=== PATIENT | male | born 1940 | race Caucasian/White ===

== ENCOUNTER → 2016-12-15 | Outpatient (CLI) | payer BC ==
[~2016-12-15] MED LIST: ADVIN10/60 INH; ALBUAER2 INH; ASPEC325 PO; ATEN-173 PO; GLUCOSAMINE PO; LEVO-366 PO; MULT-506 PO; SIMV40TA2 PO; VERA180T15 PO
[2016-12-15 17:46] LABS: COMPLETE YES; EOS % 2.4 %; IG% 1.1 %; LYMPH % 35.8 %; LYMPH ABS # 1.32 K/uL (1.2-3.4); MEAN CELL VOLUME 93.8 fL (80-100); MEAN CORPUSCULAR HEMOGLOBIN 31.1 pg (25-34); MEAN CORPUSCULAR HGB CONC 33.1 g/dl (32-36); MEAN PLATELET VOLUME 10.7 fL (7.4-10.4); MONO % 17.3 %; NEUT % 43.4 %; PLATELET COUNT 144 K/uL (130-400); RED BLOOD COUNT 3.73 M/uL (4.7-6.1); WHITE BLOOD COUNT 3.69 K/uL (4.8-10.8)
[2016-12-15 18:00] LABS: ALB/GLOB RATIO 0.9 (0.9-2); ALT/SGPT 23 U/L (12-78); AST/SGOT 16 U/L (15-37); BLOOD UREA NITROGEN 25 mg/dl (7-18); BUN/CREATININE RATIO 16.7 (10-20); CALCIUM 8.9 mg/dl (8.5-10.1); CARBON DIOXIDE 27 mmol/L (21-32); CHLORIDE 105 mmol/L (98-107); CHOLESTEROL 108 mg/dl (0-200); CHOLESTEROL/HDL RATIO 2.6; GLUCOSE 102 mg/dl (70-99); HDL CHOLESTEROL 41 mg/dl; LDL CHOLESTEROL CALCULATED 42 mg/dl; POTASSIUM 4.5 mmol/L (3.5-5.1); SODIUM 141 mmol/L (136-145); TRIGLYCERIDES 126 mg/dl (0-150); VERY LOW DENSITY LIPOPROT CALC 25 mg/dl
[2016-12-15 18:02] LABS: ALKALINE PHOSPHATASE 84 U/L (45-117)
[2016-12-16 06:29] LABS: ESTIMATED AVERAGE GLUCOSE 128 mg/dl; HA1C FLAG Normal (Normal)
== END | disposition home or self-care (01) ==
LOC: C.LABBFT 14:21
PROVIDERS: ATTEND Internal Medicine
DX: R73.01 Impaired fasting glucose (principal); D64.9 Anemia, unspecified; E78.5 Hyperlipidemia, unspecified

== ENCOUNTER → 2017-02-23 | Outpatient (CLI) | payer BC ==
--- NOTE | 2017-02-23 07:15 | DIAGNOSTIC IMAGING REPORT ---
CHEST CT WITHOUT CONTRAST CT DOSE: 660.45 mGy.cm HISTORY: Lung nodule R91.1 Pulmonary nodule TECHNIQUE: Multiaxial CT images of the chest were performed without contrast. COMPARISON: 05/26/2016 FINDINGS: No change overall compared to the prior study. The current study shows no significant mediastinal or hilar adenopathy. Diffuse emphysematous change bilaterally combined with diffuse pleural thickening, parenchymal scarring, and bleb changes bilaterally appear similar. There is no new or interval finding. Calcified pleural plaques throughout both hemithoraces is stable. Postoperative changes of the right shoulder stable. IMPRESSION: 1. No change from the prior exam. 2. Extensive emphysematous and calcific pleural plaque formation throughout both hemithoraces are similar. 3. Emphysematous bleb formation, pleural thickening, and parenchymal densities appear stable. No interval change. Electronically signed by: Luis Angel Woods M.D. 02/23/2017 7:13 AM Dictated Date/Time: 02/23/2017 6:55 AM
== END | disposition home or self-care (01) ==
LOC: C.CTS 06:30
PROVIDERS: ATTEND Internal Medicine Pulmonary Disease
DX: R91.1 Solitary pulmonary nodule (principal)

== ENCOUNTER → 2017-06-22 | Outpatient (CLI) | payer BC ==
[2017-06-22 12:34] LABS: ESTIMATED AVERAGE GLUCOSE 126 mg/dl; HA1C FLAG Normal (Normal)
[2017-06-22 12:36] LABS: COMPLETE YES; EOS % 0.6 %; IG% 0.6 %; LYMPH % 30.9 %; LYMPH ABS # 1.06 K/uL (1.2-3.4); MEAN CORPUSCULAR HEMOGLOBIN 31.5 pg (25-34); MEAN CORPUSCULAR HGB CONC 33.2 g/dl (32-36); MEAN PLATELET VOLUME 11.7 fL (7.4-10.4); MONO % 17.5 %; NEUT % 50.4 %; PLATELET COUNT 119 K/uL (130-400); WHITE BLOOD COUNT 3.43 K/uL (4.8-10.8)
[2017-06-22 12:42] LABS: ALT/SGPT 20 U/L (12-78); AST/SGOT 14 U/L (15-37); BLOOD UREA NITROGEN 23 mg/dl (7-18); BUN/CREATININE RATIO 17.5 (10-20); CALCIUM 8.8 mg/dl (8.5-10.1); CARBON DIOXIDE 29 mmol/L (21-32); CHLORIDE 105 mmol/L (98-107); CHOLESTEROL 107 mg/dl (0-200); GLUCOSE 99 mg/dl (70-99); POTASSIUM 4.2 mmol/L (3.5-5.1); SODIUM 139 mmol/L (136-145)
[2017-06-22 12:52] LABS: ALB/GLOB RATIO 0.8 (0.9-2); ALKALINE PHOSPHATASE 87 U/L (45-117); CHOLESTEROL/HDL RATIO 2.1; HDL CHOLESTEROL 50 mg/dl; LDL CHOLESTEROL CALCULATED 45 mg/dl; TRIGLYCERIDES 61 mg/dl (0-150); VERY LOW DENSITY LIPOPROT CALC 12 mg/dl
== END | disposition home or self-care (01) ==
LOC: C.LABBFT 11:10
PROVIDERS: ATTEND Internal Medicine
DX: E78.5 Hyperlipidemia, unspecified (principal); R73.01 Impaired fasting glucose; D64.9 Anemia, unspecified

== ENCOUNTER 2017-12-24 16:30 | Emergency (ER) | payer BC ==
[~2017-12-24] VITALS: Ht 170.2 cm; Wt 90.0 kg
[2017-12-24 16:33] VITALS: TEMP 36.5; Ht 170.2 cm; Wt 90.0 kg
[2017-12-24] MEDS ORDERED: ASPI81TA28 PO (16:52)
[2017-12-24] MEDS ORDERED: OMEG10007 PO (16:52)
[2017-12-24] MEDS ORDERED: SODIUM CHLORIDE 0.9% 1000ML 1,000 ML IV STA (17:32)
[2017-12-24 18:01] LABS: ALT/SGPT 80 U/L (12-78); BLOOD UREA NITROGEN 46 mg/dl (7-18); CALCIUM 8.8 mg/dl (8.5-10.1); CARBON DIOXIDE 25 mmol/L (21-32); CREATININE 1.97 mg/dl (0.60-1.40); GLUCOSE 126 mg/dl (70-99); LIPASE 169 U/L (73-393); POTASSIUM 3.7 mmol/L (3.5-5.1); SODIUM 135 mmol/L (136-145)
[2017-12-24 18:05] LABS: ALKALINE PHOSPHATASE 80 U/L (45-117); AST/SGOT 74 U/L (15-37); TOTAL PROTEIN 7.9 gm/dl (6.4-8.2)
[2017-12-24 18:10] LABS: HEMATOCRIT 36.3 % (42-52); HEMOGLOBIN 12.6 g/dL (14.0-18.0); MEAN CELL VOLUME 93.6 fL (80-100); MEAN CORPUSCULAR HEMOGLOBIN 32.5 pg (25-34); MEAN CORPUSCULAR HGB CONC 34.7 g/dl (32-36); MEAN PLATELET VOLUME 11.9 fL (7.4-10.4); RED CELL DISTRIBUTION WIDTH CV 14.7 % (11.5-14.5); RED CELL DISTRIBUTION WIDTH SD 49.9 fL (36.4-46.3); WHITE BLOOD COUNT 8.96 K/uL (4.8-10.8)
[2017-12-24 18:16] LABS: PLATELET COUNT 77 K/uL (130-400)
[2017-12-24 18:18] LABS: BASO % 0.2 %; BASO ABS # 0.02 K/uL (0-0.2); IG# 0.11 K/uL (0.00-0.02); LYMPH % 8.6 %; LYMPH ABS # 0.77 K/uL (1.2-3.4); MONO % 10.3 %; MONO ABS # 0.92 K/uL (0.11-0.59); NEUT % 79.7 %; NEUT ABS # 7.14 K/uL (1.4-6.5)
--- NOTE | 2017-12-24 18:21 | DIAGNOSTIC IMAGING REPORT ---
CT SCAN OF THE ABDOMEN AND PELVIS WITHOUT CONTRAST CLINICAL HISTORY: Generalized abdominal pain COMPARISON STUDY: No previous studies for comparison. TECHNIQUE: CT scan of the abdomen and pelvis was performed from the lung bases to the proximal femurs. Images are reviewed in the axial, sagittal, and coronal planes. IV contrast was not administered for this examination. A dose lowering technique was utilized adhering to the principles of ALARA. CT DOSE: 724.85 mGy.cm FINDINGS: Lower chest: The heart is enlarged. There is right lower lobe bronchiectatic change. There is pleural thickening and bilateral pleural calcifications. There are multiple peripheral bleb/bulla. Liver: The unenhanced liver is normal in size, contour, and attenuation. There is no intrahepatic biliary ductal dilatation. Gallbladder: Unremarkable. Spleen: Normal in size and attenuation. Pancreas: There is mild edema adjacent the the anterior lateral aspect of the pancreatic head. Adrenal glands: Unremarkable. Kidneys: There is a 3 mm nonobstructing lower pole right renal calculus. There is a 17 mm lower pole right renal cyst. No ureteral or bladder calculi are visualized. Bowel: There are no transition zones indicate bowel obstruction. The appendix appears normal. There is colonic diverticulosis. There is no evidence of acute diverticulitis. There is mild wall thickening of the gastric antrum and duodenal bulb with subtle infiltration of the adjacent fat. The findings are suggestive of a gastric antritis/duodenitis. Pancreatitis with secondary inflammatory changes is within differential but felt to be statistically less likely. Peritoneum: There is no intraperitoneal free air or abdominal ascites. There is small fat-containing hernias Vasculature: The abdominal aorta is normal in course and caliber. Adenopathy: None. Pelvic viscera: The bladder, and pelvic viscera are unremarkable. Skeletal structures: No destructive osseous lesions are seen. IMPRESSION: 1. No evidence of bowel obstruction. No evidence of free air 2. Normal appendix 3. Diverticulosis. No evidence of acute diverticulitis 4. Nonobstructing 3 mm right renal calculus 5. Mild wall thickening involving the gastric antrum and duodenal bulb with subtle infiltration of the adjacent fat. The findings are suggestive a gastric antritis/duodenitis. Pancreatitis with secondary inflammatory changes is within differential but felt to be statistically less likely Electronically signed by: Luis Carbone M.D. 12/24/2017 6:20 PM Dictated Date/Time: 12/24/2017 6:13 PM
--- NOTE | 2017-12-24 18:28 | DIAGNOSTIC IMAGING REPORT ---
CHEST ONE VIEW PORTABLE CLINICAL HISTORY: cough COMPARISON STUDY: Chest CT dated 02/23/2017, chest x-ray dated 10/14/2008 FINDINGS: The heart is enlarged. There are extensive bilateral calcified pleural plaques. This makes evaluation the lung parenchyma difficult. There is blunting of the lateral costophrenic angles. There is no definite acute parenchymal consolidation. There is underlying pulmonary emphysema.[ IMPRESSION: Cardiomegaly, pulmonary emphysema, and extensive bilateral calcified pleural plaques. The pleural disease makes evaluation of the lung parenchyma difficult. There is no definite acute parenchymal consolidation. Electronically signed by: Luis Carbone M.D. 12/24/2017 6:27 PM Dictated Date/Time: 12/24/2017 6:24 PM
[2017-12-24 19:07] LABS: INFLUENZA B ANTIGEN Neg for Influ B (NEG)
[2017-12-24] MEDS ORDERED: SODIUM CHLORIDE 0.9% 500ML 500 ML IV STA (20:19)
[2017-12-24 22:11] VITALS: BP 132/55; PULSE 50; O2SAT 97
--- NOTE | 2017-12-25 00:10 | EMERGENCY ROOM VISIT NOTE ---
History Report prepared by Yana: Abigail Mensah Under the Supervision of: Dr. Otoniel Angeles D.O. First contact with patient: 16:55 Chief Complaint: FLU LIKE SX Stated Complaint: FLU- PHYSICIAN REFERRED History of Present Illness The patient is a 77 year old male who presents to the Emergency Room with complaints of constant generalized illness beginning a week ago. The patient's symptoms started with a nonproductive cough. He reports a headache, fever, weakness, abdominal pain, vomiting, and decreased appetite. The patient was diagnosed with the flu on Thursday, three days ago, and was started on Tamiflu. He states his fever, vomiting, and sorethroat have resolved. Presently, his main complaint is abdominal pain and decreased appetite. He describes his abdominal pain as "bloating". The patient wears 4 L of oxygen at baseline. He has not had to increase his oxygen since being sick. He denies any history of abdominal surgeries. He denies any open wounds or sores. The patient was referred to come to the ED by his PCP. The patient has a history of COPD and asbestos. Pt denies change in vision, chest pain, shortness of breath, nausea, diarrhea, pain with urination, and melena. Source of History: patient Onset: a week ago Position: other (generalized) Quality: other (illness) Timing: constant Associated Symptoms: + fevers, + headache, + sorethroat, + cough, + vomiting , + abdominal pain, No nausea, No diarrhea Review of Systems See HPI for pertinent positives & negatives. A total of 10 systems reviewed and were otherwise negative. Past Medical & Surgical Medical Problems: (1) COPD (chronic obstructive pulmonary disease) Social History Marital Status: Housing Status: lives with significant other Current/Historical Medications Scheduled Albuterol (Ventolin), PUFFS INH UD Aspirin (Aspirin Ec), 81 MG PO QAM Atenolol (Tenormin), 25 MG PO BID Fish Oil ([place]-3), 1 CAP PO QAM Fluticasone Prop/Salmeterol (Advair Diskus 100/50 Mcg *), 1 PUFF INH BID Simvastatin (Zocor), 40 MG PO QPM Verapamil Sust Rel (Calan Sr Ext Rel), 180 MG PO DAILY Allergies Coded Allergies: Diltiazem (Verified Allergy, Intermediate, HIVES, 12/24/17) Telmisartan (Verified Allergy, Unknown, 12/24/17) Physical Exam Vital Signs Date Time Temp Pulse Resp B/P (MAP) Pulse Ox O2 Delivery O2 Flow Rate FiO2 12/24/17 22:11 50 132/55 97 12/24/17 18:56 69 131/63 90 Nasal Cannula 4.0 12/24/17 16:57 65 116/56 98 Nasal Cannula 4.0 12/24/17 16:33 36.5 73 20 113/62 88 Nasal Cannula 4.0 Physical Exam GENERAL: Sitting up in bed, alert, well appearing, on nasal cannula, talking in full sentences, well nourished, no distress, non-toxic EYE EXAM: normal conjunctiva. PERRL and EOM's grossly intact. OROPHARYNX: no exudate, no erythema, lips, buccal mucosa, and tongue normal and mucous membranes are moist NECK: supple, no nuchal rigidity, no adenopathy, non-tender. No JVD. LUNGS: Coarse breath sounds bilaterally. Normal chest wall mechanics HEART: no murmurs, S1 normal and S2 normal ABDOMEN: abdomen soft, non-tender, normo-active bowel sounds, no masses, no rebound or guarding. BACK: Back is symmetrical on inspection and there is no deformity, no midline tenderness, no CVA tenderness. SKIN: no rashes and no bruising UPPER EXTREMITIES: upper extremities are grossly normal. LOWER EXTREMITIES: No pitting edema. NEURO EXAM: Normal sensorium, cranial nerves II-XII grossly intact, normal speech, no gross weakness of arms, no gross weakness of legs. Gross sensation intact. Medical Decision & Procedures ER Provider Diagnostic Interpretation: Radiology results as stated below per my review and the radiologist's interpretation: CT SCAN OF THE ABDOMEN AND PELVIS WITHOUT CONTRAST FINDINGS: Lower chest: The heart is enlarged. There is right lower lobe bronchiectatic change. There is pleural thickening and bilateral pleural calcifications. There are multiple peripheral bleb/bulla. Liver: The unenhanced liver is normal in size, contour, and attenuation. There is no intrahepatic biliary ductal dilatation. Gallbladder: Unremarkable. Spleen: Normal in size and attenuation. Pancreas: There is mild edema adjacent the the anterior lateral aspect of the pancreatic head. Adrenal glands: Unremarkable. Kidneys: There is a 3 mm nonobstructing lower pole right renal calculus. There is a 17 mm lower pole right renal cyst. No ureteral or bladder calculi are visualized. Bowel: There are no transition zones indicate bowel obstruction. The appendix appears normal. There is colonic diverticulosis. There is no evidence of acute diverticulitis. There is mild wall thickening of the gastric antrum and duodenal bulb with subtle infiltration of the adjacent fat. The findings are suggestive of a gastric antritis/duodenitis. Pancreatitis with secondary inflammatory changes is within differential but felt to be statistically less likely. Peritoneum: There is no intraperitoneal free air or abdominal ascites. There is small fat-containing hernias Vasculature: The abdominal aorta is normal in course and caliber. Adenopathy: None. Pelvic viscera: The bladder, and pelvic viscera are unremarkable. Skeletal structures: No destructive osseous lesions are seen. IMPRESSION: 1. No evidence of bowel obstruction. No evidence of free air 2. Normal appendix 3. Diverticulosis. No evidence of acute diverticulitis 4. Nonobstructing 3 mm right renal calculus 5. Mild wall thickening involving the gastric antrum and duodenal bulb with subtle infiltration of the adjacent fat. The findings are suggestive a gastric antritis/duodenitis. Pancreatitis with secondary inflammatory changes is within differential but felt to be statistically less likely Electronically signed by: Luis Carbone M.D. CHEST ONE VIEW PORTABLE FINDINGS: The heart is enlarged. There are extensive bilateral calcified pleural plaques. This makes evaluation the lung parenchyma difficult. There is blunting of the lateral costophrenic angles. There is no definite acute parenchymal consolidation. There is underlying pulmonary emphysema.[ IMPRESSION: Cardiomegaly, pulmonary emphysema, and extensive bilateral calcified pleural plaques. The pleural disease makes evaluation of the lung parenchyma difficult. There is no definite acute parenchymal consolidation. Electronically signed by: Luis Carbone M.D. Laboratory Results 12/24/17 17:30 Red Blood Count 3.88, Mean Corpuscular Volume 93.6, Mean Corpuscular Hemoglobin 32.5, Mean Corpuscular Hemoglobin Concent 34.7, Mean Platelet Volume 11.9, Neutrophils (%) (Auto) 79.7, Lymphocytes (%) (Auto) 8.6, Monocytes (%) (Auto) 10.3, Eosinophils (%) (Auto) 0.0, Basophils (%) (Auto) 0.2, Neutrophils # (Auto ) 7.14, Lymphocytes # (Auto) 0.77, Monocytes # (Auto) 0.92, Eosinophils # (Auto ) 0.00, Basophils # (Auto) 0.02 12/24/17 17:30 Test 12/24/17 17:30 12/24/17 17:48 12/24/17 18:55 White Blood Count 8.96 K/uL (4.8-10.8) Red Blood Count 3.88 M/uL (4.7-6.1) Hemoglobin 12.6 g/dL (14.0-18.0) Hematocrit 36.3 % (42-52) Mean Corpuscular Volume 93.6 fL (80-100) Mean Corpuscular Hemoglobin 32.5 pg (25-34) Mean Corpuscular Hemoglobin Concent 34.7 g/dl (32-36) Platelet Count 77 K/uL (130-400) Mean Platelet Volume 11.9 fL (7.4-10.4) Neutrophils (%) (Auto) 79.7 % Lymphocytes (%) (Auto) 8.6 % Monocytes (%) (Auto) 10.3 % Eosinophils (%) (Auto) 0.0 % Basophils (%) (Auto) 0.2 % Neutrophils # (Auto) 7.14 K/uL (1.4-6.5) Lymphocytes # (Auto) 0.77 K/uL (1.2-3.4) Monocytes # (Auto) 0.92 K/uL (0.11-0.59) Eosinophils # (Auto) 0.00 K/uL (0-0.5) Basophils # (Auto) 0.02 K/uL (0-0.2) RDW Standard Deviation 49.9 fL (36.4-46.3) RDW Coefficient of Variation 14.7 % (11.5-14.5) Immature Granulocyte % (Auto) 1.2 % Immature Granulocyte # (Auto) 0.11 K/uL (0.00-0.02) Dohle Bodies 1+ Platelet Estimate DECREASED Giant Platelets 2+ Anion Gap 7.0 mmol/L (3-11) Est Creatinine Clear Calc Drug Dose 33.1 ml/min Estimated GFR () 36.6 Estimated GFR (Non- 31.6 BUN/Creatinine Ratio 23.4 (10-20) Calcium Level 8.8 mg/dl (8.5-10.1) Total Bilirubin 0.8 mg/dl (0.2-1) Direct Bilirubin 0.4 mg/dl (0-0.2) Aspartate Amino Transf (AST/SGOT) 74 U/L (15-37) Alanine Aminotransferase (ALT/SGPT) 80 U/L (12-78) Alkaline Phosphatase 80 U/L (45-117) Troponin I < 0.015 ng/ml (0-0.045) Total Protein 7.9 gm/dl (6.4-8.2) Albumin 3.0 gm/dl (3.4-5.0) Lipase 169 U/L (73-393) Influenza Type A Antigen POS for Influ A (NEG) Influenza Type B Antigen Neg for Influ B (NEG) Urine Color DK YELLOW Urine Appearance CLOUDY (CLEAR) Urine pH 5.0 (4.5-7.5) Urine Specific [place] 1.025 (1.000-1.030) Urine Protein 2+ (NEG) Urine Glucose (UA) NEG (NEG) Urine Ketones TRACE (NEG) Urine Occult Blood 2+ (NEG) Urine Nitrite NEG (NEG) Urine Bilirubin NEG (NEG) Urine Urobilinogen NEG (NEG) Urine Leukocyte Esterase NEG (NEG) Urine WBC (Auto) 5-10 /hpf (0-5) Urine RBC (Auto) 5-10 /hpf (0-4) Urine Hyaline Casts (Auto) 10-30 /lpf (0-5) Urine Epithelial Cells (Auto) >30 /lpf (0-5) Urine Bacteria (Auto) NEG (NEG) Urine Renal Epithelial Cells /lpf (0-5) Urine Crystals AMORPHOUS SEDIMENT (NONE Urine Pathogenic Casts /lpf (0) Urine Mucus PRESENT (NONE PRSENT) Urine Yeast (Auto) (NONE PRSENT) Laboratory results per my review. Medications Administered Medications (Trade) Dose Ordered Sig/Lisbeth Route Start Time Stop Time Status Last Admin Dose Admin Sodium Chloride 1,000 ml @ 999 mls/hr Q1H1M STAT IV 12/24/17 17:32 12/24/17 18:32 DC 12/24/17 17:32 999 MLS/HR Sodium Chloride 500 ml @ 999 mls/hr Q31M STAT IV 12/24/17 20:19 12/24/17 20:49 DC 12/24/17 20:19 999 MLS/HR ECG Per My Interpretation Indication: weakness Rate (beats per minute): 57 Rhythm: sinus bradycardia Findings: Q waves (Septal), left axis deviation Comparison ECG Date: 08/10/2007 Change: no significant change ED Course ED COURSE: Vital signs were reviewed and showed normal vitals on chronic 4 L The patients medical record was reviewed The above diagnostic studies were performed and reviewed. ED treatments and interventions as stated above. 1725: The patient was evaluated in room A10. A complete history and physical examination was performed. 1732: Ordered Sodium Chloride 1000 ml @ 999 mls/hr IV. 2014: The patient is feeling better and would like to go home. He is agreeable to wait for the urine to come back. 2019: Ordered Sodium Chloride 500 ml @ 999 mls/hr IV. 2141: I updated the patient on his test results. 2155: Upon reevaluation, the patient is resting comfortably.I discussed my findings with the patient and her understands and agrees with the treatment plan. Based on the patients age, coexisting illnesses, exam and lab findings the decision to treat as an outpatient was made. The patient remained stable while under my care. The patient appeared well at the time of discharge. Medical Decision Differential Diagnosis includes but is not limited to dehydration, stroke, anemia, hypoglycemia, hyponatremia, hypernatremia, urinary tract infection, pneumonia, bronchitis, sepsis, gastroenteritis, additional abdominal pathology, metabolic abnormalities and infections. Patient is a 77-year-old male who presents to ER for abdominal pain which was present earlier today. He has not been eating and drinking as he felt nauseous. He was recently diagnosed with influenza and placed on Tamiflu. He has been having coughing and muscle aches. He denies any fevers. He notes that his coughing, muscle aches and sore throat have almost completely resolved. CBC was unremarkable. BMP with a creatinine of 1.9 off of the baseline of 1.5. Patient was given 1.5 L normal saline. LFTs were slightly elevated in the 70s. Troponin was negative. Lipase is normal. UA was contaminated. Influenza A was positive. Patient was updated bedside and was feeling significantly better. He did request to be discharged. He was chronically on his 4 L. He will continue his Tamiflu as previously prescribed. Discussed with Pt concerning signs and symptoms to watch out for. Pt was instructed to follow up with their PCP and discussed with the patient their option to return to the ED at anytime for persistent or worsening symptoms. The appropriate anticipatory guidance and out-patient management, including indications for return to the emergency department, were explained at length to the patient and understood. Medication Reconcilliation Current Medication List: was personally reviewed by me Blood Pressure Screening Patient's blood pressure: Elevated blood pressure Blood pressure disposition: Elevated BP felt to be situational Impression Primary Impression: Dehydration Additional Impressions: Influenza-like symptoms Abdominal pain Scribe Attestation The scribe's documentation has been prepared under my direction and personally reviewed by me in its entirety. I confirm that the note above accurately reflects all work, treatment, procedures, and medical decision making performed by me. Departure Information Dispostion Home / Self-Care Referrals Duane De Leon M.D. (PCP) Forms HOME CARE DOCUMENTATION FORM, IMPORTANT VISIT INFORMATION Patient Instructions My [facility], Rapid Influenza Antigen Nasal or Throat Swab Additional Instructions Please follow up with your primary care doctor with in the next 24 hours. Any worsening of your symptoms, please return to the ED immediately. This includes any fevers greater than 100.4, worsening pain, chest pain, shortness breath, persistent nausea, vomiting, unable to eat or drink, or any other concerning signs or symptoms from your standpoint. Please continue your Tamiflu as previously prescribed. Please try to remain as hydrated as possible. Problem Qualifiers Additional Impressions: Abdominal pain Abdominal location: unspecified location Qualified Codes: R10.9 - Unspecified abdominal pain
--- NOTE | 2017-12-28 19:06 | Pharmacy Progress Note ---
ED Pharmacist Culture FollowUp Date of Service: Dec 28, 2017. attempted to contact patient again regarding urine cx result and recommendation for repeat UA/Ucx (per charge nurse note and Dr. Gilman) but there was no answer again.
== END 2017-12-24 22:13 | disposition home or self-care (01) ==
LOC: C.EDB 16:31 → C.EDA 22:13
DX: E86.0 Dehydration (principal); R50.9 Fever, unspecified; R05 Cough; R51 Headache; R10.9 Unspecified abdominal pain; J44.9 Chronic obstructive pulmonary disease, unspecified

== ENCOUNTER → 2018-01-12 | Outpatient (CLI) | payer BC ==
[~2018-01-12] MED LIST changes: -ASPEC325 PO; +ASPI81TA28 PO; -GLUCOSAMINE PO; -LEVO-366 PO; -MULT-506 PO; +OMEG10007 PO
[2018-01-12 17:13] LABS: EOS % 0.5 %; EOS ABS # 0.02 K/uL (0-0.5); HEMATOCRIT 33.9 % (42-52); HEMOGLOBIN 11.1 g/dL (14.0-18.0); IG# 0.03 K/uL (0.00-0.02); LYMPH % 32.9 %; LYMPH ABS # 1.36 K/uL (1.2-3.4); MEAN CELL VOLUME 97.7 fL (80-100); MEAN CORPUSCULAR HGB CONC 32.7 g/dl (32-36); MONO % 16.7 %; MONO ABS # 0.69 K/uL (0.11-0.59); NEUT % 49.2 %; NEUT ABS # 2.03 K/uL (1.4-6.5); PLATELET COUNT 140 K/uL (130-400); RED CELL DISTRIBUTION WIDTH CV 14.6 % (11.5-14.5); RED CELL DISTRIBUTION WIDTH SD 51.8 fL (36.4-46.3); WHITE BLOOD COUNT 4.13 K/uL (4.8-10.8)
[2018-01-12 17:25] LABS: ALBUMIN 3.3 gm/dl (3.4-5.0); ALT/SGPT 23 U/L (12-78); BLOOD UREA NITROGEN 18 mg/dl (7-18); CALCIUM 8.5 mg/dl (8.5-10.1); CARBON DIOXIDE 28 mmol/L (21-32); CHOLESTEROL 95 mg/dl (0-200); CREATININE 1.27 mg/dl (0.60-1.40); GLUCOSE 88 mg/dl (70-99); POTASSIUM 4.1 mmol/L (3.5-5.1); SODIUM 138 mmol/L (136-145)
[2018-01-12 17:28] LABS: ALKALINE PHOSPHATASE 75 U/L (45-117); AST/SGOT 12 U/L (15-37); LDL CHOLESTEROL CALCULATED 38 mg/dl; TOTAL PROTEIN 7.8 gm/dl (6.4-8.2)
[2018-01-13 06:26] LABS: HEMOGLOBIN A1C 6.4 % (4.5-5.6)
== END | disposition home or self-care (01) ==
LOC: C.LABBFT 11:52
PROVIDERS: ATTEND Internal Medicine
DX: E78.5 Hyperlipidemia, unspecified (principal); R73.01 Impaired fasting glucose; D72.819 Decreased white blood cell count, unspecified

== ENCOUNTER → 2018-03-03 | Day surgery (SDC) | payer BC ==
[2018-02-26 13:45] VITALS: Ht 170.2 cm; Wt 90.9 kg
[~2018-03-03] VITALS: Ht 170.2 cm; Wt 90.9 kg
[~2018-03-03] MED LIST changes: +500ML BSS 0.3ML EPI 1:1000PF IRRIG ONE; +ACETAMINOPHEN 325 MG TAB PO PRN; -ADVIN10/60 INH; +ALBU18002 INH; -ALBUAER2 INH; +AMVISC PLUS 0.8ML SYRINGE INT OCU ONE; +ATROPINE SULFATE 0.1 MG/ML 5ML SYR IV PRN; +BSS FLUSH ONE; +ENDOCOAT 0.85ML SYRINGE INT OCU ONE; +EpHEDrine SULFATE INJ 50 MG/ML AMP IV PRN; +EpINEphrine INJ 1MG/ML AMP 1 MG/ML AMP ONE; +LABETALOL HCL IV 5 MG/ML 20ML ONE; +LACTATED RINGER'S 1000ML 500 ML IV SCH; +LIDOCAINE 4% OP SOLN DROP CHARGE ONE; +LIDOCAINE 4% OP SOLN DROP CHARGE OPL SCH; +LIDOCAINE HCL 1% MPF 2 ML VIAL ONE; +MELO7.5T5 PO; +MIDAZOLAM HCL 1 MG/ML 2ML VIAL ONE; +MIX: 4ML BSS 1ML EPI 1:1000 PF TOP ONE; +MOME200A INH; +MOXIFLOXACIN OPH SOLN PER DROP CHARGE ONE; +ONDANSETRON INJ 2 MG/ML 2 ML VIAL IV PRN; +POVIDONE-IODINE OP SOLN 30 ML BTL ONE; +PROPARACAINE 0.5% OP SOLN PER DROP CHARGE OPL SCH; +SPRIN/30 INH; +TOBRAMYCIN/DEXAMETHASONE OPH OINT PER APPLN CHARGE ONE; -VERA180T15 PO; +VERA360C2 PO
--- NOTE | 2018-03-03 06:50 | History & Physical Bridge - SC ---
H&P Re-Evaluation Bridge Note: I have examined the patient, reviewed the History & Physical and in the interval since the performance of the History & Physical I have noted the following changes of clinical significance: No changes noted
[2018-03-03] MEDS: PHENYLEPHRINE HCL 2.5% OP SOLN PER DROP CHARGE OPL SCH ×3 (06:52→07:02)
[2018-03-03] MEDS: TROPICAMIDE 1% OP SOLN PER DROP CHARGE OPL SCH ×3 (06:53→07:03)
[2018-03-03] MEDS: CYCLOPENTOLATE HCL 1% OP SOLN PER DROP CHARGE OPL SCH ×3 (06:54→07:04)
[2018-03-03] MEDS: MOXIFLOXACIN OPH SOLN PER DROP CHARGE OPL SCH ×3 (06:55→07:05)
--- NOTE | 2018-03-03 07:59 | [facility] Post Operative Brief Note ---
Immediate Operative Summary Operative Date March 03, 2018. Pre-Operative Diagnosis Left Eye Cataract Post-Operative Diagnosis same as pre op Procedure(s) Performed Left Cataract Phacoemulsification With Intraocular Lens Implant Surgeon Dr Kwok Entry Examiner Surgeon(s) none Estimated Blood Loss 0ml Findings Consistent with Post-Op Diagnosis Specimens none Anesthesia Type MAC Complication(s) none Disposition Accompanied Pt To Recovery: no Disposition:
--- NOTE | 2018-03-03 08:00 | [facility] Operative Report ---
Operative Report Date of Service March 03, 2018. Operative Report DATE OF OPERATION: 03/03/18 PREOPERATIVE DIAGNOSIS: Senile nuclear cataract, left eye POSTOPERATIVE DIAGNOSIS: Senile nuclear cataract, left eye PROCEDURE PERFORMED: Phacoemulsification with intraocular lens implantation, left eye SURGEON: Dr. Emmett Kwok ANESTHESIA: Topical with 1% intracameral lidocaine and monitored anesthesia care COMPLICATIONS: None DESCRIPTION OF PROCEDURE: After positively identifying the patient both verbally and by wristband in the preoperative area, the left eye was marked as the operative eye. The patient was then brought back to the operating room by the anesthesia and nursing staff where they were given a drop of Lidocaine and betadine into the operative eye. They were then sterilely prepped and draped in the standard fashion typical for ophthalmic surgery. Steri-strips were placed along the upper eyelids to keep the lashes back, and a lid speculum was placed into the operative eye. At this point, a documented time out was performed with members of the ophthalmology, nursing, and anesthesia staffs all agreeing upon the correct patient, correct location for surgery, correct procedure, and correct type and power of intraocular lens to be implanted. The microscope was then swung into position. First, a paracentesis wound was made using a sideport blade. Then, in sequence, 1% preservative-free lidocaine followed by Endocoat viscoelastic was injected into the anterior chamber. Next , the main incision was made with a keratome blade in triplanar fashion. A sharp cystotome was introduced into the eye and used to create a tear in the anterior capsule, which was directed into a continuous curvilinear capsulorrhexis using Utrata forceps. Hydrodissection was then performed with BSS on a flat-tip cannula. Next, the phacoemulsification handpiece was introduced into the eye and used to remove the nucleus in a [id number] fashion. This was done without complication and then the irrigation-aspiration handpiece was introduced into the eye and used to remove all remaining cortical and epinuclear material. Amvisc was then injected into the anterior chamber as well as into the capsular bag and using the lens injector system, an MX60 25.5 D lens, serial number [id number], and expiration date 08/2019 was injected into the capsular bag and rotated into the correct position. Next, the irrigation- aspiration handpiece was used to remove all remaining Amvisc. BSS was used to hydrate the main wound, and then BSS was injected into the paracentesis site to reach physiologic pressure and then the main wound was checked and found to be watertight. The patient was given drops of Vigamox and Tobradex ointment into the operative eye, and then the surrounding area was cleaned and dried. A clear plastic shield was placed over the eye and the patient was then sat up and taken from the operating room by the anesthesia staff having tolerated the procedure well and suffering no complications. DISPOSITION: The patient was returned to the recovery room in stable condition. I attest to the content of the Intraoperative Record and any orders documented therein. Any exceptions are noted below.
--- NOTE | 2018-03-03 08:01 | Discharge Instructions-SurgCtr ---
Discharge Instructions Date of Service March 03, 2018. Visit Reason for Visit: Cataract Left Eye Discharge Discharge Diagnosis / Problem: left cataract Discharge Goals Goal(s): Decrease discomfort, Improve function Activity Recommendations Activity Limitations: as noted below Anesthesia . Post Anesthesia Instructions: If you have had General Anesthesia or IV Sedation: * Do not drive today. * Resume driving when surgeon permits. * Do not make important decisions or sign legal documents today. * Call surgeon for: 1. Temperature elevations greater than 101 degrees F. 2. Uncontrollable pain. 3. Excessive bleeding. 4. Persistent nausea and vomiting. 5. Medication intolerance (nausea, vomiting or rash). * For nausea and vomiting use only clear liquids such as: tea, soda, bouillon until nausea subsides, then gradually increase diet as tolerated. * If you have any concerns or questions, call your surgeon's office. If physician is unavailable and it is an emergency, call 911 or go to the nearest emergency room. . Instructions / Follow-Up Instructions / Follow-Up ACTIVITY RECOMMENDATIONS: * Light activities. * You may walk outside, read, watch television. * You may notice redness on the white part of the eye and some blurry vision - this is normal. MEDICATIONS: Resume previous medications unless instructed otherwise by your surgeon. Start all eye drops at 10 am today: * Eye drops (today): Prednisone - one drop in operative eye every 2 hours while awake Ofloxacin - one drop in operative eye every 2 hours while awake Ketorolac - one drop in operative eye 4 times daily SPECIAL CARE INSTRUCTIONS: * Tape plastic shield over eye to sleep at night. Call your doctor at with any concerns or problems. FOLLOW UP VISIT: Follow-up with Dr Kwok at [facility] as scheduled. Diet Recommendations Home Diet: no limitations Procedures Procedures Performed: Left Cataract Phacoemulsification With Intraocular Lens Implant Pending Studies Studies pending at discharge: no Medical Emergencies . Who to Call and When: Medical Emergencies: If at any time you feel your situation is an emergency, please call 911 immediately. . Non-Emergent Contact Non-Emergency issues call your: Surgeon . . "Provider Documentation" section prepared by Emmett Kwok. .
--- NOTE | 2018-03-03 08:27 | Anesthesia Progress Nt - [facility] ---
Anesthesia Post Op Note Date & Time March 03, 2018 at 08:26 Vital Signs Pain Intensity: 0 Vital Signs Past 12 Hours Date Time Temp Pulse Resp B/P (MAP) Pulse Ox O2 Delivery O2 Flow Rate FiO2 03/03/18 07:59 36.4 67 16 132/70 (90) 95 Room Air 03/03/18 06:40 36.7 67 22 216/96 (136) 93 Room Air Notes Mental Status: alert / awake / arousable, participated in evaluation Pt Amnestic to Procedure: Yes Nausea / Vomiting: adequately controlled Pain: adequately controlled Airway Patency, RR, SpO2: stable & adequate BP & HR: stable & adequate Hydration State: stable & adequate Anesthetic Complications: no major complications apparent
[2018-03-03 08:33] VITALS: BP 171/74; PULSE 71; O2SAT 93
== END | disposition home or self-care (01) ==
LOC: X.SURG 06:21
PROVIDERS: ATTEND Ophthalmology
DX: H25.12 Age-related nuclear cataract, left eye (principal); J45.909 Unspecified asthma, uncomplicated; J44.9 Chronic obstructive pulmonary disease, unspecified; G47.33 Obstructive sleep apnea (adult) (pediatric); I25.2 Old myocardial infarction; I25.10 Atherosclerotic heart disease of native coronary artery without angina pectoris; I10 Essential (primary) hypertension; E78.5 Hyperlipidemia, unspecified; Z98.890 Other specified postprocedural states

== ENCOUNTER → 2018-03-10 | Day surgery (SDC) | payer BC ==
[2018-03-09 11:20] VITALS: Ht 170.2 cm; Wt 90.9 kg
[~2018-03-10] VITALS: Ht 170.2 cm; Wt 90.9 kg
[~2018-03-10] MED LIST changes: -500ML BSS 0.3ML EPI 1:1000PF IRRIG ONE; -ACETAMINOPHEN 325 MG TAB PO PRN; -AMVISC PLUS 0.8ML SYRINGE INT OCU ONE; -BSS FLUSH ONE; +CYCLOPENTOLATE HCL 1% OP SOLN PER DROP CHARGE OPR SCH; -ENDOCOAT 0.85ML SYRINGE INT OCU ONE; -EpHEDrine SULFATE INJ 50 MG/ML AMP IV PRN; -LABETALOL HCL IV 5 MG/ML 20ML ONE; -LIDOCAINE 4% OP SOLN DROP CHARGE OPL SCH; +LIDOCAINE 4% OP SOLN DROP CHARGE OPR SCH; -MIX: 4ML BSS 1ML EPI 1:1000 PF TOP ONE; +MOXIFLOXACIN OPH SOLN PER DROP CHARGE OPR SCH; -ONDANSETRON INJ 2 MG/ML 2 ML VIAL IV PRN; +PHENYLEPHRINE HCL 10% OP SOLN PER DROP CHARGE OPR SCH; -PROPARACAINE 0.5% OP SOLN PER DROP CHARGE OPL SCH; +PROPARACAINE 0.5% OP SOLN PER DROP CHARGE OPR SCH; +TROPICAMIDE 1% OP SOLN PER DROP CHARGE OPR SCH
== END | disposition home or self-care (01) ==
LOC: X.SURG 11:16
PROVIDERS: ATTEND Ophthalmology
DX: H25.11 Age-related nuclear cataract, right eye (principal); Z53.8 Procedure and treatment not carried out for other reasons; I10 Essential (primary) hypertension; J44.9 Chronic obstructive pulmonary disease, unspecified

== ENCOUNTER 2018-03-19 10:40 | Emergency (ER) | payer BC ==
[~2018-03-19] VITALS: Ht 172.7 cm; Wt 91.4 kg
[~2018-03-19 10:40] MED LIST changes: -ALBU18002 INH; -ATROPINE SULFATE 0.1 MG/ML 5ML SYR IV PRN; -CYCLOPENTOLATE HCL 1% OP SOLN PER DROP CHARGE OPR SCH; -EpINEphrine INJ 1MG/ML AMP 1 MG/ML AMP ONE; -LACTATED RINGER'S 1000ML 500 ML IV SCH; -LIDOCAINE 4% OP SOLN DROP CHARGE ONE; -LIDOCAINE 4% OP SOLN DROP CHARGE OPR SCH; -LIDOCAINE HCL 1% MPF 2 ML VIAL ONE; -MIDAZOLAM HCL 1 MG/ML 2ML VIAL ONE; -MOXIFLOXACIN OPH SOLN PER DROP CHARGE ONE; -MOXIFLOXACIN OPH SOLN PER DROP CHARGE OPR SCH; -PHENYLEPHRINE HCL 10% OP SOLN PER DROP CHARGE OPR SCH; -POVIDONE-IODINE OP SOLN 30 ML BTL ONE; -PROPARACAINE 0.5% OP SOLN PER DROP CHARGE OPR SCH; -TOBRAMYCIN/DEXAMETHASONE OPH OINT PER APPLN CHARGE ONE; -TROPICAMIDE 1% OP SOLN PER DROP CHARGE OPR SCH
[2018-03-19 10:46] VITALS: TEMP 36.9; Ht 172.7 cm; Wt 91.4 kg
[2018-03-19] MEDS ORDERED: ASPI325T4 PO (11:12)
[2018-03-19] MEDS ORDERED: TRAM-10 PO ×2 (11:12→12:56)
[2018-03-19] MEDS ORDERED: ALBU18002 INH (11:12)
[2018-03-19] MEDS ORDERED: IPRA1AER2 INH (11:12)
--- NOTE | 2018-03-19 12:05 | DIAGNOSTIC IMAGING REPORT ---
ULTRASOUND LEFT LOWER EXTREMITY VENOUS CLINICAL HISTORY: Left leg pain. COMPARISON STUDY: No priors. TECHNIQUE: Real-time, grayscale, and color Doppler sonography of the deep veins of the left lower extremity was performed from the inguinal crease to the calf. Compression and augmentation were utilized. FINDINGS: There is no sonographic evidence of deep venous thrombosis identified in the left lower extremity. The common femoral, superficial femoral, and popliteal veins are patent and normally compressible. The greater saphenous vein and the profunda femoris vein at the junction with the common femoral vein are clear. The visualized calf veins are patent. IMPRESSION: There is no sonographic evidence of deep venous thrombosis identified in the left lower extremity. Electronically signed by: Thanh Rand M.D. 03/19/2018 12:04 PM Dictated Date/Time: 03/19/2018 12:03 PM
--- NOTE | 2018-03-19 12:13 | DIAGNOSTIC IMAGING REPORT ---
L TIBIA/FIBULA 2 VIEWS ROUTINE CLINICAL HISTORY: L lower leg pain COMPARISON: None. DISCUSSION: Osteoarthritic changes are present within the knee. No acute fractures are visualized. There are no erosive or destructive changes. There are vascular calcifications present. There is a small spur/loose body projected over the anterior aspect of the far distal tibia. IMPRESSION: 1. Degenerative changes 2. No acute fractures. No destructive lesions are visualized Electronically signed by: Luis Carbone M.D. 03/19/2018 12:12 PM Dictated Date/Time: 03/19/2018 12:11 PM
--- NOTE | 2018-03-19 12:19 | DIAGNOSTIC IMAGING REPORT ---
L-SPINE MIN 4 VIEWS ROUTINE CLINICAL HISTORY: Low back pain with left leg radiculopathy. COMPARISON STUDY: No previous studies for comparison. FINDINGS: There is scattered stool the colon. There is no pathologic bowel dilatation. There are moderate multilevel degenerative changes. There are no acute fractures or traumatic subluxations. There is minor retrolisthesis of L3 and L4. There is an old superior endplate L3 compression deformity. Incidental note is made of pleurodiaphragmatic calcifications. IMPRESSION: 1. Moderate multilevel degenerative change 2. Old superior endplate L3 compression deformity Electronically signed by: Luis Carbone M.D. 03/19/2018 12:17 PM Dictated Date/Time: 03/19/2018 12:15 PM
--- NOTE | 2018-03-19 12:42 | EMERGENCY ROOM VISIT NOTE ---
ED Visit Note First contact with patient: 11:03 The patient was seen and examined with Jarek Golden PA-C. I agree with the history, physical and findings. Please see the note for disposition and details.
[2018-03-19 13:18] VITALS: BP 191/92; PULSE 62; O2SAT 92
--- NOTE | 2018-03-19 16:23 | EMERGENCY ROOM VISIT NOTE ---
History First contact with patient: 11:03 Chief Complaint: LEG PAIN,LEG INJURY Stated Complaint: LOWER LEFT LEG PAIN History of Present Illness The patient is a 77 year old male who presents to the Emergency Room with complaints of left lower leg pain. Patient reports that his symptoms started approximately 3 days ago. He reports that it was a gradual onset, and is a constant pain. The patient reports the pain does somewhat go into the middle and upper calf region. It does not go past the ankle or into the foot. The patient has no worsening pain or discomfort with weightbearing. The patient denies any recent injury to the leg or ankle. He denies any prior history of peripheral vascular disease or DVT. The patient takes aspirin daily. The patient reports that he has also had some recent lower back pain over the past few days. He denies any pain radiating into the left buttock or thigh. He denies abdominal pain. He also denies any paresthesias or numbness of the left lower extremity. The patient denies any prior history of shingles or other chronic skin conditions. The patient rates his discomfort a 6 out of 10 on my exam, but rated his pain a 10 out of 10 in triage. Review of Systems 10 system review was performed and was negative except for pertinent positives and negatives as indicated in history of present illness Past Medical/Surgical History Medical Problems: (1) Asbestosis (2) Chronic blood loss anemia (3) Chronic kidney disease (4) COPD (chronic obstructive pulmonary disease) (5) Coronary artery disease (6) Diverticulosis (7) Hyperlipidemia (8) Hypertension (9) Myocardial infarction (10) Sleep apnea Surgical Problems: (1) History of eye surgery Family History Heart disease, hypertension, hypercholesterolemia Social History Smoking Status: Former Smoker Alcohol Use: none Marital Status: Occupation Status: retired Current/Historical Medications Scheduled Albuterol Sulfate (Proair Respiclick), 2 PUFFS INH Q6 Aspirin (Aspirin), 325 MG PO DAILY Atenolol (Tenormin), 25 MG PO BID Fish Oil ([place]-3), 1 CAP PO QAM Ipratropium-Albuterol (Combivent Respimat), 1 PUFFS INH QID Meloxicam (Mobic), 2 TAB PO QAM Mometasone Furoate-Formoterol (Dulera 200/5 Mcg), 2 PUFFS INH BID Simvastatin (Zocor), 40 MG PO QPM Tiotropium [place] (Spiriva Handihaler), 1 CAP INH QAM Verapamil Hcl (Verapamil Hcl Sr), 1 CAP PO QAM Scheduled PRN Tramadol (Ultram), 25 MG PO Q6 PRN for Pain Tramadol (Ultram), 1-2 TAB PO Q4H PRN for Pain Physical Exam Vital Signs Date Time Temp Pulse Resp B/P (MAP) Pulse Ox O2 Delivery O2 Flow Rate FiO2 03/19/18 13:18 62 16 191/92 92 03/19/18 12:49 59 20 188/86 95 03/19/18 10:46 36.9 68 20 179/87 94 Room Air Physical Exam CONSTITUTIONAL: Healthy and well nourished. Alert and oriented X 3 with positive affect. Patient does not appear in any acute distress. HEENT: Normocephalic, atraumatic. Pupils equal, round and reactive. NECK: Full active range of motion without discomfort. RESPIRATORY: Clear to auscultation bilaterally with no wheezing, crackles, rhonchi or stridor. CARDIOVASCULAR: Regular rate and rhythm with no murmurs, rubs or gallops. GASTROINTESTINAL: Bowel sounds present in all quadrants. Soft and nontender to palpation. MUSCULOSKELETAL: Examination of the left lower extremity does not show any obvious edema, ecchymosis, erythema or skin changes. The patient has minimal tenderness to palpation over the lateral distal leg. He has no focal tenderness about the ankle or posterior tibial/peroneal tendons. No focal tenderness through the hamstrings, gastrocnemius or Achilles tendon. No popliteal masses. Negative logroll. Negative sitting straight leg raise. Patient has mild tenderness to palpation through the left lower lumbar region. Pedal pulses are intact. INTEGUMENTARY: No rash or other significant dermatologic conditions noted. NEUROLOGIC: No focal neurologic deficits noted. Left foot and toes are sensory intact. Medical Decision & Procedures ER Provider Diagnostic Interpretation: Venous ultrasound of the left lower extremity does not show any evidence for deep vein thrombosis. Radiologist report is as follows: ULTRASOUND LEFT LOWER EXTREMITY VENOUS CLINICAL HISTORY: Left leg pain. COMPARISON STUDY: No priors. TECHNIQUE: Real-time, grayscale, and color Doppler sonography of the deep veins of the left lower extremity was performed from the inguinal crease to the calf. Compression and augmentation were utilized. FINDINGS: There is no sonographic evidence of deep venous thrombosis identified in the left lower extremity. The common femoral, superficial femoral, and popliteal veins are patent and normally compressible. The greater saphenous vein and the profunda femoris vein at the junction with the common femoral vein are clear. The visualized calf veins are patent. IMPRESSION: There is no sonographic evidence of deep venous thrombosis identified in the left lower extremity. My interpretation of left tib-fib x-rays does not show any acute fractures or destructive bony lesions. Radiologist report is as follows: L TIBIA/FIBULA 2 VIEWS ROUTINE CLINICAL HISTORY: L lower leg pain COMPARISON: None. DISCUSSION: Osteoarthritic changes are present within the knee. No acute fractures are visualized. There are no erosive or destructive changes. There are vascular calcifications present. There is a small spur/loose body projected over the anterior aspect of the far distal tibia. IMPRESSION: 1. Degenerative changes 2. No acute fractures. No destructive lesions are visualized My interpretation of lumbar spine x-rays show significant degenerative changes and degenerative disc disease without evidence for acute fracture. An old superior endplate L3 compression deformity is noted. Radiologist report is as follows: L-SPINE MIN 4 VIEWS ROUTINE CLINICAL HISTORY: Low back pain with left leg radiculopathy. COMPARISON STUDY: No previous studies for comparison. FINDINGS: There is scattered stool the colon. There is no pathologic bowel dilatation. There are moderate multilevel degenerative changes. There are no acute fractures or traumatic subluxations. There is minor retrolisthesis of L3 and L4. There is an old superior endplate L3 compression deformity. Incidental note is made of pleurodiaphragmatic calcifications. IMPRESSION: 1. Moderate multilevel degenerative change 2. Old superior endplate L3 compression deformity ED Course Patient history and physical exam were performed. Nurse's notes were reviewed. Vital signs were reviewed, showing an elevated blood pressure 179/87. Patient is afebrile. O2 saturation is 94% on room air, which the patient reports is his baseline. The patient refused any analgesics on initial exam. Venous ultrasound of the left lower extremity was normal. X-rays of the lumbar spine shows degenerative changes and an old L3 superior endplate compression fracture. Left tib-fib x-rays were normal. The patient was advised of his imaging studies. The patient was encouraged to intermittently apply ice or heat to the leg. He was encouraged to limit activities until symptoms improve. I did suggest that he follow-up with his PCP on Thursday if symptoms do not improve. The patient was happy with plan of care, voiced understanding of all discharge instructions, and denied any significant discomfort at the time of discharge. The patient was also seen and examined by Dr. Jones, ED attending physician, who agrees with workup and plan of care. Medical Decision Workup today is not suggestive of deep vein thrombosis, fracture or other osteolytic lesions. The patient reports that he has had some recent lower back pain, therefore a lumbar radiculitis is certainly possible. Patient does not have typical sciatic type of symptoms, and certainly does not have a sitting straight leg raise to suggest an emergent compressive neuropathy such as cauda equina syndrome. Based on history, I do not suspect spinal hematoma or acute discitis. [place] Drug Monitoring Program Search Results: patient reviewed within database Medication Reconcilliation Current Medication List: was personally reviewed by me Blood Pressure Screening Patient's blood pressure: Normal blood pressure Impression Primary Impression: Leg pain, left Departure Information Prescriptions Tramadol (Ultram) 50 Mg Tab 1-2 TAB PO Q4H Y for Pain, #20 TAB For Initial Treatment Prov: Jarek Golden PA 03/19/18 Referrals Duane De Leon M.D. (PCP) Patient Instructions My [facility]
== END 2018-03-19 13:19 | disposition home or self-care (01) ==
LOC: C.EDB 10:41 → C.EDC 13:19
DX: M79.605 Pain in left leg (principal); N18.9 Chronic kidney disease, unspecified; J44.9 Chronic obstructive pulmonary disease, unspecified; I25.10 Atherosclerotic heart disease of native coronary artery without angina pectoris; E78.5 Hyperlipidemia, unspecified; I10 Essential (primary) hypertension; I25.2 Old myocardial infarction; G47.30 Sleep apnea, unspecified; Z87.891 Personal history of nicotine dependence; Z79.82 Long term (current) use of aspirin

== ENCOUNTER → 2018-05-18 | Outpatient (CLI) | payer BC ==
[~2018-05-18] MED LIST changes: +ALBU18002 INH; +ASPI325T4 PO; -ASPI81TA28 PO; +IPRA1AER2 INH; +TRAM-10 PO
--- NOTE | 2018-05-18 11:54 | DIAGNOSTIC IMAGING REPORT ---
CT OF THE CHEST WITHOUT IV CONTRAST CLINICAL HISTORY: Follow-up pulmonary nodule. COMPARISON STUDY: Chest CT March 30, 2006 and February 23, 2017. Chest radiograph December 24, 2017. PET/CT January 10, 2015. CT DOSE: 622.44 mGy.cm TECHNIQUE: Axial images of the chest were obtained without IV contrast. Images were reviewed in the axial, sagittal, and coronal planes. IV contrast was not administered for this examination. A dose lowering technique was utilized adhering to the principles of ALARA. FINDINGS: A prominent hypodense right paratracheal lymph node shown on axial image 51 of 326 is similar to earlier studies. This is benign given stability. The heart is mildly enlarged. There is no pericardial effusion. No consolidation is identified to suggest pneumonia. Irregular densities within the lungs with volume loss and architectural distortion are unchanged from earlier exams. These favor round atelectasis. The appearance of the chest is unchanged from earlier studies. A few subpleural bulla are unchanged. A chronic small left pneumothorax could appear similar. Numerous calcified and noncalcified pleural plaques are noted. Small bilateral pleural effusions, left larger than right are noted. Left pleural effusion has slightly increased in size since prior exam. A prominent gastrohepatic ligament lymph node shown on axial image 284 326 measures 1.3 cm. This is similar to exam of February 25, 2016. Therefore, this is likely benign. IMPRESSION: 1. No change in appearance of the lungs multiple irregular opacities with distortion and volume loss consistent with round atelectasis. 2. 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 Small bilateral pleural effusions, left larger than the right. Left pleural effusion slightly increased in size since prior CT of February 23, 2017. This effusion is nonspecific and a follow-up chest CT in 6 months is recommended. Electronically signed by: Luis Alberto Echevarria M.D. 05/18/2018 11:53 AM Dictated Date/Time: 05/18/2018 11:37 AM
== END | disposition home or self-care (01) ==
LOC: C.CTS 11:20
PROVIDERS: ATTEND Surgery
DX: J92.9 Pleural plaque without asbestos (principal); J90 Pleural effusion, not elsewhere classified

== ENCOUNTER 2020-11-07 19:51 | Observation (INO) ==
[2020-11-07] MEDS ORDERED: IBUPROFEN 200 MG TAB PO STA (20:39)
--- NOTE | 2020-11-07 20:39 | Emergency Department Note ---
Impression & Plan Hypertensive urgency, COPD (chronic obstructive pulmonary disease), Pain in scapula ED Provider Note NAME: AIDAN GANDHI AGE: 80 SEX: M : 1940 ARRIVES VIA: Walk-In INFORMANT: Patient, daughter ED PROVIDER(S): Otoniel Angeles DO CHIEF COMPLAINT: Right shoulder pain and shortness of breath HPI: Patient is an 80-year-old male who presents to the ER for worsening shortness of breath. 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 He is dropping into the mid 70s with any kind of exertion. He gets extremely winded. He has to sit down. He denies any cough or runny nose. No loss of taste or smell. No belly pain, nausea, vomiting or diarrhea. No dysuria, urgency or frequency. He has had right-sided scapular pain which has been present since Thursday. Pain does appear to be slightly worse with moving. It does go down to the right elbow. Denies any weakness or numbness. Daughter notes this is what he complained about when he had his first heart attack when he was 49. He initially declines this but then does admit that he does not remember having his heart attack. He goes on to note he had chest pain at that time and the daughter notes that he never had any chest pain and that is why he got sent home the first time. He normally wears anywhere from 5 to 7 L nasal cannula. He did take all of his medications today. ROS: See above HPI for pertinent positives & negatives. A total of 10 systems reviewed and were otherwise negative. PAST MEDICAL HISTORY:See Below PAST SURGICAL HISTORY:See Below FAMILY HISTORY:See Below SOCIAL HISTORY:See Below HOME MEDICATIONS:See Below ALLERGIES:See Below VITALS:See Below PHYSICAL EXAMINATION: GENERAL: Sitting up in bed, alert, well appearing, well nourished, no distress, non-toxic EYE EXAM: normal conjunctiva. OROPHARYNX: no exudate, no erythema, lips, buccal mucosa, and tongue normal and mucous membranes are moist NECK: supple, no nuchal rigidity, no adenopathy, non-tender LUNGS: Clear to auscultation. Normal chest wall mechanics HEART: no murmurs, S1 normal and S2 normal ABDOMEN: abdomen soft, non-tender, normo-active bowel sounds, no masses, no rebound or guarding. BACK: Back is symmetrical on inspection and there is no deformity, no midline tenderness, faint tenderness over right scapula. UPPER EXTREMITIES: Flexion-extension bilateral shoulders, elbows wrist and grasp intact LOWER EXTREMITIES: No pitting edema. Calves are equal bilateral NEURO EXAM: Normal sensorium, cranial nerves II-XII grossly intact, normal speech, no gross weakness of arms, no gross weakness of legs. MEDICAL DECISION MAKING: Patient is an 80-year-old male who presents the ER for shortness of breath, shoulder pain and was found to have significantly elevated blood pressure. Blood pressures were persistently elevated from 200-220. No labs show mild leukopenia but no significant anemia. INR was unremarkable. BMP with slightly elevated BUN. Creatinine was elevated at 1.4 fairly consistent with previous. LFTs bilirubin and troponin was unremarkable. Lipase was negative. Covid was negative. He remained on 8 L while in the ER and rested comfortably. He was initially given some Motrin for his right scapular pain and then a dose of OxyIR. Pain was very mild. I do not believe that this is driving his elevated pressures. He was given a dose of hydralazine. SBP after hydralazine trended down to 180 from 216 will continue to follow closely until admission. CT angio of the chest shows no dissection or PEs but does show some small pleural effusions. No belly pain. Patient was updated in regards to this. Covid was negative. Discussed with hospitalist admitted for further work-up. SBP after hydralazine trended down to 180 from 216 will continue to follow closely until admission. Triage Nursing notes reviewed. Limited review of prior medical records performed Vital Signs: reviewed and remarkable for hypoxic and hypertensive Differential diagnosis: Differential diagnoses includes but is not limited to pneumonia, bronchitis, COPD/Asthma exacerbation, pneumothorax, pulmonary embolism, congestive heart failure, acute coronary syndrome ER treatment provided: See below Diagnostics interpreted by me: ECG: Sinus bradycardia rate of 57 Left axis T wave inversion in aVL ST depressions in the high lateral leads QTC 430 No significant change from EKG performed in 2013 Cardiac Monitoring: An order was placed for continuous cardiac monitoring. The monitor shows a rate of 62 with sinus rhythm. Laboratory studies: As stated above and show below. Imaging studies: Preliminary Findings Only See Final Report For Complete Findings CTA CHEST: Comparison is made to CT chest on 05/18/2018. No pulmonary embolus identified. Atherosclerotic changes of the aorta. No aortic aneurysm or dissection. Small left greater than right pleural effusions. Areas of scarring and atelectasis bilaterally. Groundglass opacities in the lungs could represent an element of pulmonary edema or infectious/inflammatory process. Bilateral calcified pleural plaques. Stable nonspecific mildly prominent mediastinal and hilar lymph nodes. Mild cardiomegaly. Small splenule. Postsurgical changes of the right humerus partially visualized. Consultation(s): Discussed with Dr. Mary Will for further evaluation Procedures: none Critical Care: None Past Med/Surg History Surgical History (Updated 02/15/20 @ 16:17 by Dianna Mcqueen MA) H/O colonoscopy Family History (Updated 02/15/20 @ 16:18 by Dianna Mcqueen MA) Father Emphysema, unspecified Brother Cancer Mother Glaucoma Cancer skin Sister Renal failure Social History (Updated 02/15/20 @ 16:19 by Dianna Mcqueen MA) Smoking Status: Former smoker Tobacco Type: Cigarettes Hx Alcohol Use: Yes Preferred Language: Sudanese marital status: current occupational status: retired Feels Safe at Home: Yes Allergies Allergies Allergy/AdvReac Type Severity Reaction Status Date / Time diltiazem [From Cardizem] Allergy Severe hives Verified 11/07/20 22:38 telmisartan Allergy Unknown Unknown Verified 11/07/20 22:39 Home Meds Home Medications Medication Instructions Recorded Confirmed aspirin 81 mg tablet,delayed 81 mg PO HS 08/04/19 11/07/20 release atenolol 25 mg PO [facility] 11/07/20 11/07/20 celecoxib [Celebrex] 200 mg PO [facility] 11/07/20 11/07/20 tiotropium bromide [Spiriva with 1 cap INH [facility] 11/07/20 11/07/20 HandiHaler] verapamil 360 mg PO [facility] 11/07/20 11/07/20 Previous Rx's Medication Instructions Recorded simvastatin 40 mg tablet 40 mg PO HS #90 tab 05/04/20 Results & Data (ED) Vital Signs Vital Signs - 24 hr 11/07/20 19:53 11/07/20 20:46 11/07/20 21:00 Temperature 36.5 C Temperature Source Temporal Artery Scan Pulse Rate 70 61 Pulse Rate [Apical] Pulse Rate from SpO2 Sensor 61 Respiratory Rate 20 19 Respiratory Effort / Characteristics Respiratory Depth Normal Blood Pressure 218/78 H Blood Pressure [Left Arm] Blood Pressure Mean 124 Blood Pressure Mean [Left Arm] Blood Pressure Position Lying Pulse Oximetry 86 L 99 99 Oxygen Delivery Method Nasal Cannula Nasal Cannula Nasal Cannula Oxygen Flow Rate 5 8 7 Sepsis Recent Fever Within 48 Hours No Sepsis New/Unexplained Change in Mental Status No Sepsis Action Taken by Nursing No Action Required Oxygen Flow Rate - Titration 8 Pulse Oximetry Post Tiitration 99 11/07/20 22:20 11/07/20 22:21 11/07/20 22:30 Temperature Temperature Source Pulse Rate 60 65 Pulse Rate [Apical] 61 Pulse Rate from SpO2 Sensor 61 64 Respiratory Rate 22 23 23 Respiratory Effort / Characteristics Non-Labored Spontaneous Respiratory Depth Normal Blood Pressure Blood Pressure [Left Arm] 196/99 H Blood Pressure Mean Blood Pressure Mean [Left Arm] 131 Blood Pressure Position Pulse Oximetry 100 99 100 Oxygen Delivery Method Nasal Cannula Nasal Cannula Nasal Cannula Oxygen Flow Rate 7 7 7 Sepsis Recent Fever Within 48 Hours Sepsis New/Unexplained Change in Mental Status Sepsis Action Taken by Nursing Oxygen Flow Rate - Titration Pulse Oximetry Post Tiitration 11/07/20 22:38 Temperature Temperature Source Pulse Rate 62 Pulse Rate [Apical] Pulse Rate from SpO2 Sensor 62 Respiratory Rate 21 Respiratory Effort / Characteristics Respiratory Depth Blood Pressure 180/91 H Blood Pressure [Left Arm] Blood Pressure Mean 140 Blood Pressure Mean [Left Arm] Blood Pressure Position Pulse Oximetry 100 Oxygen Delivery Method Nasal Cannula Oxygen Flow Rate 7 Sepsis Recent Fever Within 48 Hours Sepsis New/Unexplained Change in Mental Status Sepsis Action Taken by Nursing Oxygen Flow Rate - Titration Pulse Oximetry Post Tiitration Laboratory Data Result diagrams: 11/07/20 20:42 11/07/20 20:42 Lab Results 11/07/20 11/07/20 11/07/20 Range/Units 20:42 20:42 20:42 WBC 4.26 L (4.8-10.8) K/uL RBC 4.31 L (4.7-6.1) M/uL Hgb 13.6 L (14.0-18.0) g/dL POC Hgb (14.0-18.0) g/dl Hct 41.1 L (42-52) % POC Hct (42-52) % MCV 95.4 (80-100) fL MCH 31.6 (25-34) pg MCHC 33.1 (32-36) g/dL RDW Std Deviation 47.2 H (36.4-46.3) fL RDW Coeff of Jairon 13.7 (11.5-14.5) % Plt Count 130 (130-400) K/uL MPV 11.1 H (7.4-10.4) fL Immature Gran % (Auto) 0.5 % Neut % (Auto) 57.4 % Lymph % (Auto) 21.4 % [place] % (Auto) 20.2 % Eos % (Auto) 0.5 % Baso % (Auto) 0.0 % Neut # (Auto) 2.45 (1.4-6.5) K/uL Lymph # (Auto) 0.91 L (1.2-3.4) K/uL [place] # (Auto) 0.86 H (0.11-0.59) K/uL Eos # (Auto) 0.02 (0-0.5) K/uL Baso # (Auto) 0.00 (0-0.2) K/uL Immature Gran # (Auto) 0.02 (0.00-0.02) K/uL PT 11.1 (9.0-12.0) Seconds INR 1.1 (0.9-1.1) APTT 31.7 H (21.0-31.0) Seconds PTT Ratio 1.1 POC Sodium (135-144) mmol/L Sodium 138 (136-145) mmol/L POC Potassium (3.3-5.0) mmol/L Potassium 4.2 (3.5-5.1) mmol/L POC Chloride (101-112) mmol/L Chloride 107 (98-107) mmol/L Carbon Dioxide 26 (21-32) mmol/L POC Total CO2 (24-31) mmol/L Anion Gap 5.0 (3-11) POC Anion Gap (16-25) mmol/L POC BUN (7-18) mg/dl BUN 20 H (7-18) mg/dl Creatinine 1.45 H (0.6-1.4) mg/dl POC Creatinine (0.6-1.3) mg/dl Est Cr Clr Drug Dosing Not Reportable Est GFR ( Amer) 52.0 Est GFR (Non-Af Amer) 44.8 BUN/Creatinine Ratio 13.7 (10-20) Glucose 107 H (70-99) mg/dl POC Glucose (other) (70-99) mg/dl Calcium 8.7 (8.5-10.1) mg/dl POC Ioniz Calcium Hi (1.12-1.32) mmol/l Total Bilirubin 0.6 (0.2-1) mg/dl AST 10 L (15-37) U/L ALT 20 (12-78) U/L Alkaline Phosphatase 90 (45-117) U/L Troponin I < 0.015 (0-0.045) ng/ml Total Protein 8.5 H (6.4-8.2) gm/dl Albumin 3.7 (3.4-5.0) gm/dl Globulin 4.8 H (2.5-4.0) gm/dl Albumin/Globulin Ratio 0.8 L (0.9-2) Lipase 82 (73-393) U/L COVID-19 Eval Order SARS-CoV-2, RNA, NAAT (NEGATIVE) 11/07/20 11/07/20 11/07/20 Range/Units 20:47 20:59 20:59 WBC (4.8-10.8) K/uL RBC (4.7-6.1) M/uL Hgb (14.0-18.0) g/dL POC Hgb 14.6 (14.0-18.0) g/dl Hct (42-52) % POC Hct 43 (42-52) % MCV (80-100) fL MCH (25-34) pg MCHC (32-36) g/dL RDW Std Deviation (36.4-46.3) fL RDW Coeff of Jairon (11.5-14.5) % Plt Count (130-400) K/uL MPV (7.4-10.4) fL Immature Gran % (Auto) % Neut % (Auto) % Lymph % (Auto) % Concordia % (Auto) % Eos % (Auto) % Baso % (Auto) % Neut # (Auto) (1.4-6.5) K/uL Lymph # (Auto) (1.2-3.4) K/uL Concordia # (Auto) (0.11-0.59) K/uL Eos # (Auto) (0-0.5) K/uL Baso # (Auto) (0-0.2) K/uL Immature Gran # (Auto) (0.00-0.02) K/uL PT (9.0-12.0) Seconds INR (0.9-1.1) APTT (21.0-31.0) Seconds PTT Ratio POC Sodium 138 (135-144) mmol/L Sodium (136-145) mmol/L POC Potassium 4.5 (3.3-5.0) mmol/L Potassium (3.5-5.1) mmol/L POC Chloride 105 (101-112) mmol/L Chloride (98-107) mmol/L Carbon Dioxide (21-32) mmol/L POC Total CO2 26 (24-31) mmol/L Anion Gap (3-11) POC Anion Gap 12.0 L (16-25) mmol/L POC BUN 22 H (7-18) mg/dl BUN (7-18) mg/dl Creatinine (0.6-1.4) mg/dl POC Creatinine 1.4 H (0.6-1.3) mg/dl Est Cr Clr Drug Dosing Est GFR ( Amer) Est GFR (Non-Af Amer) BUN/Creatinine Ratio (10-20) Glucose (70-99) mg/dl POC Glucose (other) 114 H (70-99) mg/dl Calcium (8.5-10.1) mg/dl POC Ioniz Calcium Hi 1.09 L (1.12-1.32) mmol/l Total Bilirubin (0.2-1) mg/dl AST (15-37) U/L ALT (12-78) U/L Alkaline Phosphatase (45-117) U/L Troponin I (0-0.045) ng/ml Total Protein (6.4-8.2) gm/dl Albumin (3.4-5.0) gm/dl Globulin (2.5-4.0) gm/dl Albumin/Globulin Ratio (0.9-2) Lipase (73-393) U/L COVID-19 Eval [facility] SARS-CoV-2, RNA, NAAT NEGATIVE (NEGATIVE) Administered Medications Discontinued Medications Hydralazine HCl (Hydralazine Hcl 20 Mg/Ml Vial) 10 mg IV NOW STA Stop: 01/13/21 22:25 Last Admin: 11/07/20 22:33 Dose: 10 mg Documented by: [id number] Ibuprofen (Ibuprofen 200 Mg Tab) 400 mg PO NOW STA Stop: 11/07/20 20:40 Last Admin: 11/07/20 21:00 Dose: 400 mg Documented by: [id number] Ioversol (Optiray 320 125ml) 116 ml IV ONCE ONE Stop: 11/07/20 21:51 Last Admin: 11/07/20 21:50 Dose: 116 ml Documented by: [id number] Discharge Plan Visit Data Chief Complaint: Shoulder Pain Stated Complaint: right shoulder pain, right arm pain, low O2 ED Provider: Otoniel Angeles Discharge Problem: Hypertensive urgency, COPD (chronic obstructive pulmonary disease), Pain in sc apula Forms Stand Alone Forms: My [facility] Prescriptions Prescriptions: No Action simvastatin 40 mg tablet 40 mg PO HS Qty: 90 RF: 3 aspirin 81 mg tablet,delayed release (DR/EC) 81 mg PO HS RF: 0 celecoxib [Celebrex] 200 mg capsule 200 mg PO [facility] RF: 0 verapamil 360 mg capsule,ext rel. pellets 24 hr 360 mg PO QAM RF: 0 atenolol 25 mg tablet 25 mg PO [facility] RF: 0 Spiriva with HandiHaler 18 mcg capsule, w/inhalation device 1 cap INH [facility] RF: 0 Discharge Problem: COPD (chronic obstructive pulmonary disease) Qualifiers: COPD type: unspecified COPD Qualified Code(s): J44.9 - Chronic obstructive pulmonary disease, unspecified
--- NOTE | 2020-11-07 20:51 | XRay Report ---
XR chest 1V portable CLINICAL HISTORY: Atypical chest pain COMPARISON STUDY: 12/24/2017 FINDINGS: The heart is enlarged. There are bilateral calcified pleural plaques. This makes evaluation of the parenchyma difficult. There is no definite acute parenchymal consolidation. There is blunting of the lateral costophrenic angles. This could represent pleural scarring or small effusions. IMPRESSION: 1. Cardiomegaly. 2. Persistent extensive calcified pleural plaques. The pleural disease again makes evaluation of the lung parenchyma difficult. ACT 112: Negative or not required by law. Electronically signed by: Luis Carbone M.D. 11/07/2020 8:50 PM
[2020-11-07 20:52] LABS: Eosinophils # (auto) 0.02 K/uL (0-0.5); Eosinophils % (auto) 0.5 %; Hematocrit (blood only) 41.1 % (42-52); Hemoglobin 13.6 g/dL (14.0-18.0); Immature Granulocytes # (auto) 0.02 K/uL (0.00-0.02); Immature Granulocytes % (auto) 0.5 %; Lymphocytes # (auto) 0.91 K/uL (1.2-3.4); Lymphocytes % (auto) 21.4 %; Mean Corpuscular Hemoglobin 31.6 pg (25-34); Mean Corpuscular Hgb Conc 33.1 g/dL (32-36); Mean Corpuscular Volume 95.4 fL (80-100); Mean Platelet Volume 11.1 fL (7.4-10.4); Monocytes # (auto) 0.86 K/uL (0.11-0.59); Monocytes % (auto) 20.2 %; Neutrophils # (auto) 2.45 K/uL (1.4-6.5); Neutrophils % (auto) 57.4 %; Platelet Count 130 K/uL (130-400); RDW Coefficient of Variation 13.7 % (11.5-14.5); RDW Standard Deviation 47.2 fL (36.4-46.3); Red Blood Count 4.31 M/uL (4.7-6.1); White Blood Count 4.26 K/uL (4.8-10.8)
[2020-11-07 21:00] LABS: iSTAT Creatinine 1.4 mg/dl (0.6-1.3); iSTAT Hemoglobin 14.6 g/dl (14.0-18.0); iSTAT Ionized Calcium 1.09 mmol/l (1.12-1.32); iSTAT Potassium 4.5 mmol/L (3.3-5.0)
[2020-11-07 21:03] LABS: INR 1.1 (0.9-1.1); Partial Thromboplastin Ratio 1.1; Partial Thromboplastin Time 31.7 Seconds (21.0-31.0); Prothrombin Time 11.1 Seconds (9.0-12.0)
[2020-11-07 21:11] LABS: Albumin Level 3.7 gm/dl (3.4-5.0); BUN Creatinine Ratio 13.7 (10-20); Blood Urea Nitrogen 20 mg/dl (7-18); Calcium 8.7 mg/dl (8.5-10.1); Carbon Dioxide 26 mmol/L (21-32); Chloride 107 mmol/L (98-107); Est GFR (Non-African American) 44.8; Glucose 107 mg/dl (70-99); Lipase 82 U/L (73-393); Potassium 4.2 mmol/L (3.5-5.1); Sodium 138 mmol/L (136-145)
[2020-11-07 21:16] LABS: Alanine Aminotransferase 20 U/L (12-78); Albumin Globulin Ratio 0.8 (0.9-2); Alkaline Phosphatase 90 U/L (45-117); Aspartate Aminotransferase 10 U/L (15-37); Bilirubin,Total 0.6 mg/dl (0.2-1); Globulin 4.8 gm/dl (2.5-4.0); Total Protein 8.5 gm/dl (6.4-8.2); Troponin I < 0.015 ng/ml (0-0.045)
[2020-11-07] MEDS ORDERED: OPTIRAY 320 125ml IV ONE (21:50)
[2020-11-07] MEDS ORDERED: hydrALAZINE HCL 20 MG/ML VIAL IV STA (22:24)
[2020-11-07] MEDS ORDERED: oxyCODONE HCL IR 5 MG TAB (IMMEDIATE RELEASE) PO STA (22:42)
--- NOTE | 2020-11-07 23:08 | History & Physical Report ---
Date of Service November 07, 2020 Assessment & Plan (1) Hypertensive urgency: Alec Zimmerman is an 80yo M with a PMHx of CAD, chronic respiratory failure with hypoxemia due to asbestosis and COPD, HTN, HLD, CKD, and MIGDALIA who presents for concern R shoulder blade pain 3-4 days ago and slowly progressive shortness of breath. R Shoulder Pain suspect rotator cuff/teres strain - Posterior humerus, worsened by teres minor palpation. Hx of R shoulder surgery. Pain worsened and reproduced with active and forced R arm external rotation at the shoulder - No crepitus or deformity - No preceding injury, no falls - Suspect MSK/rotator cuff strain. - Will get XR Shoulder to r/o fxr - heat and voltarin QID Acute on Chronic Hypoxic Respiratory Failure with Hx Asbestosis and COPD - Baseline O2 requirement ~4L increased in the last week to up to 7-8L with exertion. Desats to 708-85% on exertion, improves with rest. Pt reports no SoB at rest. - RLL crackles, decreased global breath sounds - No fever, chills, sweats, productive cough. - CTA: No PE. L>R pleural effusions. GGO in lungs suspicious for pulmonary edema vs inflammatory process. - Small effusions, defer tap. Clinically appears volume down/dry. - Low suspicion for acute infectious etiology, but given acute sx and above findings will f/u procalcitonin - Pt would benefit from outpt pulmonology followup. Reports baseline O2 requirement and gradually worsening dependence over - Baseline severe emphysema COPD/emphysema. Will add Advair to spiriva. 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 in setting of underlying lung disease and allergy Hx CAD - EKG without st changes - Shoulder pain above suspicious for non-cardiac pain - Trend trop x3 - Continue ASA, BB as above, simvastatin 40mg Prerenal Azotemia vs KALE - Cr 1.41, bl ~1.3 - Trend BMP - Oral fluids DVT PPx: Lovenox Diet: heart healthy Dispo: MedSurg CODE STATUS: DNR/DNI (2) Pain in scapula: (3) Leukopenia: (4) Impaired fasting glucose: (5) Anemia: (6) COPD (chronic obstructive pulmonary disease): (7) Chronic respiratory failure with hypoxia: History of Present Illness Primary Care Provider: Duane De Leon MD Alec is an 80yo M who presents R shoulder blade pain 3-4 days ago. Still present, but improved. Hard to characterized 'just hurts, annoying, bothersome.' Pain travels to the elbow. 03/04. Has been taking Tylenol for pain, 2x 250mg tablets every ~4 hours. Helps a little. Denies worsening factors 'all I really do it watch TV.' Reports he has not had this pain before. Denies fall, injury, recent injury or lifting. No lifting/reaching/painting or other strenuous exersises. In the past few weeks he has been having more shortness of breath and desaturations. has a history of asbestosis with lung fibrosis. Even while wearing oxygen ~4L at home when walking he will have desaturations to the 70'- mid80s. Normal number at rest is ~94%. No shortness of breath of rest, quickly SoB with movement/exertion. No chest pain. No chest pressure. No fluttering in his chest. No orthopnea. No abdominal pain/nausea/vomiting/diarrhea/constipation. Last BM 1 day ago. No headaches/dizziness/lightheadedness/vision change No pain in his legs, denies swelling in his legs Sleeps with 1 pillow but slightly elevated. Uses a CPAP at night, wears faithfully every night. Patient reports he had a heart attack at ~age 50 for which he had angioplasty but doesn't think he had any stents. [place] fatigued and tired, but per his family did have some back/shoulder pain at the time. Medications: No recent changes. reviewed. Pt reports misses medications ~3 times per week. Going to a residential to live with his in a personal alf at [facility]. MHx: Reviewed SHx: reviewed Allergies: Diltiazem, ARB Social: Moving to personal alf as above. Former tobacco use, quit 20 years ago with 1ppd hx from teenage years until ~age 59. Drinks 3 days per week ~4 drinks in a sitting sometimes a few days between drinks. Denies recreational drug use. CODE STATUS: DNR/DNI Allergies Allergy/AdvReac Type Severity Reaction Status Date / Time diltiazem [From Cardizem] Allergy Severe hives Verified 11/07/20 22:38 telmisartan Allergy Unknown Unknown Verified 11/07/20 22:39 Home Medications Medication Instructions Recorded Confirmed Type aspirin 81 mg tablet,delayed 81 mg PO HS 08/04/19 11/07/20 History release simvastatin 40 mg tablet 40 mg PO HS #90 tab 05/04/20 11/07/20 Rx atenolol 25 mg PO [facility] 11/07/20 11/07/20 History celecoxib [Celebrex] 200 mg PO [facility] 11/07/20 11/07/20 History tiotropium bromide [Spiriva with 1 cap INH [facility] 11/07/20 11/07/20 History HandiHaler] verapamil 360 mg PO QAM 11/07/20 11/07/20 History Past Med/Surg History Medical History (Updated 11/07/20 @ 23:27 by Nakul Galan MD) Chronic respiratory failure with hypoxia Surgical History (Updated 02/15/20 @ 16:17 by Dianna Mcqueen MA) H/O colonoscopy Family History (Updated 02/15/20 @ 16:18 by Dianna Mcqueen MA) Father Emphysema, unspecified Brother Cancer Mother Glaucoma Cancer skin Sister Renal failure Social History (Updated 02/15/20 @ 16:19 by Dianna Mcqueen MA) Smoking Status: Former smoker Tobacco Type: Cigarettes Do You Dip or Chew Tobacco: No; Hx Alcohol Use: Yes Hx Substance Use: No Preferred Language: Persian Communication Ability: Effective 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 NAD. Cooperative. HEENT: Atraumatic, normocephalic. Pulm: Decreased breath sounds globally, RLL trace crackles. Symmetrical chest rise. No increase work of breathing. No respiratory distress. Cardiac: RRR, -mrg. Radial pulses intact and symmetrical. Abdominal: Nontender, nondistended, soft. BS present. CRANIAL NERVES: II: Pupils equal and reactive III, IV, : EOM intact, no gaze preference or deviation, no nystagmus. V: normal sensation in V1, V2, and V3 segments bilaterally VII: no asymmetry, no nasolabial fold flattening VIII: normal hearing to speech MSK: Posterior R shoulder tender @ teres minor. Pain worsened with palpation and forced R shoulder external rotation, minimal worsening with shoulder passive flexion and internal rotation. No crepitus or deformity. MOTOR: RUE: 5/5 Shoulder internal rotation, external rotation, flexion, extension, abduction, adduction 5/5 stack attendant strength, finger flexion/extension, interosseus LUE: 5/5 Shoulder internal rotation, external rotation, flexion, extension, abduction, adduction 5/5 stack attendant strength, finger flexion/extension, interosseus RLE: 5/5 to hip flexion ankle dorsiflexion/plantarflexion LLE: 5/5 to hip flexion ankle dorsiflexion/plantarflexion SENSORY: Normal to touch in upper and lower extremities without deficit or asymmetry Results & Data Results & Data ([facility]) Vital Signs (Past 12 Hours) Vital Signs Temp Pulse Pulse Resp BP BP Pulse Ox 11/07/20 22:30 65 23 100 11/07/20 22:21 60 23 99 11/07/20 22:20 61 22 196/99 H 100 11/07/20 21:00 61 19 99 11/07/20 20:46 99 11/07/20 19:53 36.5 C 70 20 218/78 H 86 L Supervising Physician Co-Signing Physician Notes Patient seen and examined, chart reviewed, case discussed with Dr. Galan and I agree with his assessment and plan as above Resident Activity Tracking Resident Involvement: Resident Care Provided Care Provided: Adult Hospital Medicine (1) COPD (chronic obstructive pulmonary disease) COPD type: unspecified COPD Qualified Code(s): J44.9 - Chronic obstructive pulmonary disease, unspecified
[2020-11-08] MEDS ORDERED: ATENOLOL 25 MG TABLET PO ONE (00:50)
[2020-11-08] MEDS ORDERED: hydrALAZINE HCL 20 MG/ML VIAL IV PRN (00:56)
[2020-11-08] MEDS: ACETAMINOPHEN 325 MG TAB PO PRN ×2 (01:49→09:12)
--- NOTE | 2020-11-08 04:44 | Billing Data ---
Date of Service November 08, 2020 Coding Level of Care Code 47908 OBS Care - Level 3
[2020-11-08] MEDS: HEPARIN SOD 5,000 UNIT/0.5 ML VIAL SQ SCH ×2 (06:29→13:59)
--- NOTE | 2020-11-08 07:11 | CT Scan Report ---
CT angio chest PE protocol CT DOSE: 619.02 mGycm HISTORY: 80 years-old Male with worsening sob and r arm pain. Acute shortness of breath TECHNIQUE: Multiple CTA images of the chest were obtained after the intravenous administration of 116 ml Optiray 320. Coronal and sagittal MIPS were obtained from the axial data set and were submitted for review. All measurements were obtained according to NASCET criteria. A dose lowering technique w as utilized adhering to the principles of ALARA. COMPARISON: Chest CT 04/18/2018, chest radiograph 11/07/2020 FINDINGS: CTA: Moderate cardiomegaly. There is no pericardial effusion. Moderate coronary artery calcifications. The re is no thoracic aortic aneurysm or dissection. Mild to moderate mixed plaque of the thoracic aorta with patency of the imaged great vessels. The pulmonary artery is opacified to the level of the subse gmental branches and demonstrates no filling defects to suggest thromboembolic disease. CT CHEST: No large thyroid nodule. Enlarged 1.6 x 1.3 cm right tracheoesophageal lymph node, image 256 series 4 appears stable to slightly increased in size from comparison. Mildly enlarged subcarinal and right h ilar lymph nodes are also present measuring up to 10 mm. Areas of chronic pleural thickening with bilateral pleural plaques redemonstrated. Small left greater than right pleural effusions appear generally stable. No pneumothorax. [place] formation and involving the anterior segment left upper lobe has progressed from comparison. Areas of architectural distorti on with pleural parenchymal scarring and round atelectasis also again noted. Mild intralobular septal thickening with bilateral groundglass densities and mild bronchial wall thickening are new from comp arison. Central airways appear patent. There is no acute process of the imaged upper abdomen. Splenule is noted within the abdominal left up per quadrant. Unremarkable soft tissues. There is no acute fracture. ORIF changes of the right proxim al humerus. IMPRESSION: 1. Cardiomegaly without evidence of pulmonary emboli. 2. 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 3. Mild intralobular septal thickening with bilateral groundglass densities suggestive of pulmonary e kevin with atelectasis. Interstitial pneumonitis would be difficult to exclude. 4. Unchanged small pleural effusions, left greater than right. 5. Mild mediastinal and right hilar adenopathy, likely reactive. ACT 112: Negative or not required by law. The above report was generated using voice recognition software. It may contain grammatical, syntax o r spelling errors. Electronically signed by: William Vera M.D. 11/08/2020 7:10 AM
--- NOTE | 2020-11-08 07:37 | XRay Report ---
XR shoulder RT min 2V routine CLINICAL HISTORY: Right shoulder pain. COMPARISON STUDY: Right shoulder 08/05/2007. FINDINGS: Status post internal fixation of an old, healed right humeral neck fracture with a lateral cortical plate and screws. The hardware appears intact. No acute fracture or dislocation within the r ight shoulder. The right clavicle is intact. There is mild degenerative changes at the acromioclavicu lar and glenohumeral joints. Soft tissues are unremarkable. Calcified pleural plaques within the righ t hemithorax. IMPRESSION: Chronic and postoperative changes within the right shoulder. No fracture or dislocation. ACT 112: Negative or not required by law. Electronically signed by: Alec Baldwin M.D. 11/08/2020 7:36 AM
[2020-11-08] MEDS ORDERED: PNEUMOCOCCAL ADMINISTRATION CHARGE ONE (08:00)
[2020-11-08] MEDS ORDERED: PNEUMOCOCCAL POLYSACCHARIDES 25 MCG/0.5 ML VIAL/SYR IM ONE (08:00)
[2020-11-08 08:44] LABS: BUN Creatinine Ratio 13.2 (10-20); Calcium 8.8 mg/dl (8.5-10.1); Creatinine Clr Calc Pharmacy 53.3 ml/min; Est GFR (African American) 64.7; Est GFR (Non-African American) 55.8; Potassium 3.8 mmol/L (3.5-5.1)
[2020-11-08] MEDS ORDERED: FLUTICASONE/VILANTEROL 100/25MCG 14 PUFFS/INHALER INH SCH (09:00)
[2020-11-08] MEDS ORDERED: VERAPAMIL HCL 180 MG TABCR PO SCH (09:00)
[2020-11-08] MEDS ORDERED: UMECLIDINIUM BROMIDE 62.5MCG/BLISTER 7 PUFFS/INHALER INH SCH (09:00)
[2020-11-08] MEDS ORDERED: ATENOLOL 25 MG TABLET PO SCH (09:00)
[2020-11-08] MEDS: DICLOFENAC SOD 1% GEL 100 GM TUBE EXT SCH ×2 (09:14→13:58)
[2020-11-08] MEDS ORDERED: CeleBREX 200 MG CAP PO SCH (10:00)
--- NOTE | 2020-11-08 13:38 | Med Student Discharge Summary ---
Date of Service November 08, 2020 Admission HPI Per Admitting Provider Alec is an 80yo M who presents R shoulder blade pain 3-4 days ago. Still present, but improved. Hard to characterized 'just hurts, annoying, bothersome.' Pain travels to the elbow. 03/04. Has been taking Tylenol for pain, 2x 250mg tablets every ~4 hours. Helps a little. Denies worsening factors 'all I really do it watch TV.' Reports he has not had this pain before. Denies fall, injury, recent injury or lifting. No lifting/reaching/painting or other strenuous exersises. In the past few weeks he has been having more shortness of breath and desaturations. has a history of asbestosis with lung fibrosis. Even while wearing oxygen ~4L at home when walking he will have desaturations to the 70'- mid80s. Normal number at rest is ~94%. No shortness of breath of rest, quickly SoB with movement/exertion. No chest pain. No chest pressure. No fluttering in his chest. No orthopnea. No abdominal pain/nausea/vomiting/diarrhea/constipation. Last BM 1 day ago. No headaches/dizziness/lightheadedness/vision change No pain in his legs, denies swelling in his legs Sleeps with 1 pillow but slightly elevated. Uses a CPAP at night, wears faithfully every night. Patient reports he had a heart attack at ~age 50 for which he had angioplasty but doesn't think he had any stents. [place] fatigued and tired, but per his family did have some back/shoulder pain at the time. Medications: No recent changes. reviewed. Pt reports misses medications ~3 times per week. Going to a assisted to live with his in a personal detention at [facility]. MHx: Reviewed SHx: reviewed Allergies: Diltiazem, ARB Social: Moving to personal detention as above. Former tobacco use, quit 20 years ago with 1ppd hx from teenage years until ~age 59. Drinks 3 days per week ~4 drinks in a sitting sometimes a few days between drinks. Denies recreational drug use. CODE STATUS: DNR/DNI Admission Exam (Per Admitting) Constitutional Physical Exam: General: A&Ox3. NAD. Cooperative. HEENT: Atraumatic, normocephalic. Pulm: Decreased breath sounds globally, RLL trace crackles. Symmetrical chest rise. No increase work of breathing. No respiratory distress. Cardiac: RRR, -mrg. Radial pulses intact and symmetrical. Abdominal: Nontender, nondistended, soft. BS present. CRANIAL NERVES: II: Pupils equal and reactive III, IV, : EOM intact, no gaze preference or deviation, no nystagmus. V: normal sensation in V1, V2, and V3 segments bilaterally VII: no asymmetry, no nasolabial fold flattening VIII: normal hearing to speech MSK: Posterior R shoulder tender @ teres minor. Pain worsened with palpation and forced R shoulder external rotation, minimal worsening with shoulder passive flexion and internal rotation. No crepitus or deformity. MOTOR: RUE: 5/5 Shoulder internal rotation, external rotation, flexion, extension, abduction, adduction 5/5 clean up worker strength, finger flexion/extension, interosseus LUE: 5/5 Shoulder internal rotation, external rotation, flexion, extension, abduction, adduction 5/5 clean up worker strength, finger flexion/extension, interosseus RLE: 5/5 to hip flexion ankle dorsiflexion/plantarflexion LLE: 5/5 to hip flexion ankle dorsiflexion/plantarflexion SENSORY: Normal to touch in upper and lower extremities without deficit or asymmetry Discharge Data Consultations 11/07/20 22:24 ED Decision to Admit Stat Hospital Course (1) Sleep apnea: Mr. Silverman is an [id number]-[age]n-male with a pmhx of COPD, smoking history and asbestosis exposure, MIGDALIA , CAD (NH 1990; left anterior coronary angioplasty 1994), HTN, past R humeral fracture (s/p ORIF 2006) and HLD, who presented last night for a 4 day history of R shoulder blade pain and in the ED was found to have hypertensive urgency with a BP of 218/78. #Right shoulder pain Pain seemed most consistent with muscle strain rather than cardiac etiology or referred pain. His daughter had advised him to go to the ED because she was concerned that shoulder pain could be from a cardiac cause since his NH in 1990 had presented similarly. -Pt. described 4/10 intermittent sharp pain in his R scapula with no radicular sx (numbness, tingling, radiation). No known triggers or injury to area. Mild pain upon palpation. Good ROM. He took Tylenol at home which didn't help at the time. -EKG showed left axis deviation, ST depressions but unchanged from 2013 -Negative troponins X2. -Xray of shoulder was negative for fracture -Pt was given Ibuprofen and oxycodone in ED and then transitioned to Tylenol, Voltaren gel and heat which relieved his sx while inpatient -Advised to continue using Tylenol, Voltaren gel and heat as outpatient -Follow up with PCP as outpatient #HTN urgency Most likely due to not taking medication stating that he recently forgot to take his bp meds on 3 different days recently, and also could be due to increased pain -EKG unchanged from 2013 -Pt given hydralazine in the ED -BP has decreased but remained elevated (SBP 170s-180s). On discharge was 153/76. -Will be moving with his to an Assisted Living facility to be with his soon where his medications will be better monitored -Discussed setting alarms to remind him to take meds -Follow up with PCP as outpatient #Shortness of breath -Pt's SOB has worsened over the past year and says that he is now often on 5-7 L of O2 at baseline. -Given Advair and flutter device while inpatient. -Follow up with PCP as outpatient (2) Chronic kidney disease: (3) Asbestosis: (4) Hyperlipidemia: (5) Hypertension: (6) Coronary artery disease: (7) Myocardial infarction: (8) COPD (chronic obstructive pulmonary disease): (9) Anemia: (10) Chronic respiratory failure with hypoxia: (11) Hypertensive urgency: (12) Pain in scapula: Discharge Plan Discharge Items Patient Disposition: Home - Self-Care Reason For Visit: RT SHOULDER PAIN, HTN Discharge Diagnosis: R shoulder pain, hypertension Activity: Per Instructions section Non-emergency contact: Primary Care Provider Call non-emergency contact if: you have any medication questions, your symptoms worsen and you have a fever Follow-up/Referrals: Duane De Leon III, MD [Primary Care Provider] - 11/14/20 11:30 am (hospital follow up in ~1 week from 11/08/20) Diet: Regular Addtl Attending Provider Instructions: Hi Mr. Silverman, You presented to [facility] ED for right shoulder pain and were admitted for high blood pressure (218/78) workup/management. You stated that you had missed several doses of your blood pressure medicine at home. Your ecg didn't show new changes. Your troponin, one of the biomarkers for heart attack, was normal. We rechecked it prior to sending you home because of your past medical history of heart attack and similar presentation presenting it. The repeat troponin was negative. Shoulder pain. Your pain improved after tylenol and Voltaren gel. You may purchase Voltaren gel from the pharmacy for pain. It is an over the counter medication. You stated that you are on 5-7 liters of oxygen at home. You were on 5L during this admission and you stated that your breathing was near your baseline. If you develop any new or worsening symptoms including fever, chills, sweats, chest pain, chest pressure, difficulty breathing, uncontrolled nausea/vomiting, rash, wheezing, passing out or nearly passing out, bleeding, black/bloody bowel movements, or other new or concerning symptoms please call your primary care physician, or call 911 for re-evaluation in the emergency department if you are very concerned. Pending Studies at Discharge: No Visit Report Forms: Smoking Cessation Stand-Alone Forms: [facility] [employer], Opioid Pain Management, Work/School Release (Inpt), Smoking Cessation Medications and DC Order Prescriptions: Continued simvastatin 40 mg tablet 40 mg PO HS Qty: 90 RF: 3 aspirin 81 mg tablet,delayed release (DR/EC) 81 mg PO HS RF: 0 celecoxib [Celebrex] 200 mg capsule 200 mg PO AMHS RF: 0 verapamil 360 mg capsule,ext rel. pellets 24 hr 360 mg PO QAM RF: 0 atenolol 25 mg tablet 25 mg PO AMHS RF: 0 Spiriva with HandiHaler 18 mcg capsule, w/inhalation device 1 cap INH QAM RF: 0 Discharge Orders: Discharge Order (Routine); Ordered 11/08/20 Ordered By: Zak Jimenez/Other Patient Handouts: Using Oxygen Safely, Hypertension Dc Admission Data Admit Date/Time: 11/07/20 23:50 Attending Provider: Anika Edwards Admit Provider: Nakul Galan Primary Care Provider: Duane De Leon III Other Providers: Corie Will Other Interventions: Discharge Summary Assessment (RN) Last Done: 11/08/20 14:56 Supervising Attestation Medical Student Supervision Note: I was personally present during medical student patient encounter and independently interviewed and examined the patient and verified the montes history and physical, reviewed labs and image studies, discussed the case with Virginia Mireles and agree with the findings and care plan. 80 y/o presented to ED with severe right shoulder pain and very high BP in ED systolic 218. Pain resolved at the time of discharge and BP better - systolic 170s. o/e - comfortable in bed. A A Ox3 heart - normal rate lungs - no respiratory distress msk - FROM - both shoulder. No cervical spine tenderness. Patient had not been taking his BP medication - encouraged compliance. Shoulder pain likely MSK - muscle spasm. PE ruled out. Negative troponin. f/u with PCP for shoulder pain discuss with his core man about oxygen needs. His pulse ox on 5L was 95% on discharge.
[2020-11-08] MEDS ORDERED: SIMVASTATIN 40 MG TAB PO SCH (21:00)
[2020-11-08] MEDS ORDERED: ASPIRIN 81 MG ECTAB PO SCH (21:00)
--- NOTE | 2020-11-09 15:34 | Electrocardiogram Report ---
Test Reason : Blood Pressure : / mmHG Vent. Rate : 057 BPM Atrial Rate : 057 BPM P-R Int : 192 ms QRS Dur : 114 ms QT Int : 442 ms P-R-T Axes : 052 -37 067 degrees QTc Int : 430 ms Sinus bradycardia Left axis deviation Possible Anterior infarct (cited on or before 07-NOV-2020) Abnormal ECG When compared with ECG of 24-DEC-2017 17:47, No significant change was found Confirmed by Nathan Ramos ([id number]) on 11/09/2020 3:34:20 PM Referred By: REFERRED SELF Confirmed By:Nathan Ramos
== END 2020-11-08 15:50 | disposition home or self-care (01) ==
LOC: 3W 19:51 → ED 19:51 → SUATTDRO 23:50 → 3W 11-08 00:34

== ENCOUNTER 2021-09-14 11:51 | Inpatient (IN) ==
[2021-09-14] MEDS: SODIUM CHLORIDE 0.9% 500 ML IV SCH ×3 (12:37→23:16)
[2021-09-14 12:53] LABS: Hematocrit (blood only) 38.7 % (42-52); Hemoglobin 12.7 g/dL (14.0-18.0); Mean Corpuscular Hemoglobin 31.4 pg (25-34); Mean Corpuscular Hgb Conc 32.8 g/dL (32-36); Mean Corpuscular Volume 95.6 fL (80-100); Mean Platelet Volume 12.5 fL (7.4-10.4); Platelet Count 150 K/uL (130-400); RDW Coefficient of Variation 14.3 % (11.5-14.5); RDW Standard Deviation 50.1 fL (36.4-46.3); Red Blood Count 4.05 M/uL (4.7-6.1); White Blood Count 25.88 K/uL (4.8-10.8)
[2021-09-14 13:09] LABS: iSTAT Creatinine 1.3 mg/dl (0.6-1.3); iSTAT Hemoglobin 11.6 g/dl (14.0-18.0); iSTAT Ionized Calcium 1.12 mmol/l (1.12-1.32); iSTAT Potassium 4.3 mmol/L (3.3-5.0)
[2021-09-14 13:17] LABS: Alanine Aminotransferase 35 U/L (12-78); Albumin Level 2.4 gm/dl (3.4-5.0); Aspartate Aminotransferase 14 U/L (15-37); BUN Creatinine Ratio 25.1 (10-20); Blood Urea Nitrogen 36 mg/dl (7-18); Calcium 8.7 mg/dl (8.5-10.1); Carbon Dioxide 26 mmol/L (21-32); Chloride 104 mmol/L (98-107); Est GFR (African American) 52.4 ml/min; Est GFR (Non-African American) 45.2 ml/min; Glucose 114 mg/dl (70-99); Potassium 4.1 mmol/L (3.5-5.1); Sodium 136 mmol/L (136-145)
[2021-09-14 13:20] LABS: Alkaline Phosphatase 87 U/L (45-117); Basophils # (auto) 0.01 K/uL (0-0.2); Bilirubin Direct 0.4 mg/dl (0-0.2); Bilirubin,Total 0.7 mg/dl (0.2-1); Eosinophils # (auto) 0.01 K/uL (0-0.5); Immature Granulocytes # (auto) 0.23 K/uL (0.00-0.02); Immature Granulocytes % (auto) 0.9 %; Lymphocytes # (auto) 1.51 K/uL (1.2-3.4); Lymphocytes % (auto) 5.8 %; Monocytes # (auto) 1.92 K/uL (0.11-0.59); Monocytes % (auto) 7.4 %; Neutrophils % (auto) 85.9 %; Total Protein 7.6 gm/dl (6.4-8.2)
[2021-09-14] MEDS ORDERED: OPTIRAY 320 100ml IV ONE (13:45)
--- NOTE | 2021-09-14 14:02 | CT Scan Report ---
CT abd pelvis IV con only CLINICAL HISTORY: ro sbo TECHNIQUE: Helical axial images of the abdomen and pelvis were obtained and displayed. Automated dose lowering techniques and/or adjustment according to patient size were utilized for this exam. This e xam was performed with intravenous contrast. COMPARISON: Comparison is made to CT abdomen and pelvis 12/24/2017 FINDINGS: Lower chest: Small bilateral pleural effusions are seen. Prominent extrapleural fat, pleural thicken ing and calcified plaques are noted. Cardiomegaly is seen. Liver: Unremarkable. No focal lesions are seen. Gallbladder and biliary tree: No calcified gallstones. Normal caliber wall. No intra- or extrahepatic biliary ductal dilation. Pancreas: Unremarkable, no focal lesions. Spleen: Splenule is incidentally noted. Adrenals: Unremarkable. Kidneys and ureters: Calcified. A renal cyst is again seen at the left kidney inferior pole. Bladder: Unremarkable. Reproductive organs: Unremarkable. Bowel: Diffuse gaseous distention is seen in the large bowel. No evidence of small bowel obstruction is seen. Diverticulosis is seen without evidence of diverticulitis. The appendix is prominent compare d to prior exam, measuring up to 9 mm at the tip. Lymph nodes Retroperitoneal: Unremarkable. Mesenteric: Subcentimeter lymph nodes are noted. Pelvic: Unremarkable. Peritoneum: Normal Vessels: Atherosclerotic calcifications are seen. An infrarenal abdominal aortic aneurysm measures 28 mm in diameter, increased from prior exam where it measured 25 mm in diameter. Abdominal wall: Bilateral fat-containing inguinal hernias are seen. Fat-containing umbilical hernia i s noted. Bones: Degenerative changes in the visualized spine. Redemonstration of anterior wedge deformity of L 3. IMPRESSION: 1. Prominent colonic gas without evidence of small bowel obstruction or volvulus. 2. Prominence of the appendix, new from prior exam. Clinical correlation is recommended for acute ap pendicitis. 3. Infrarenal abdominal aortic aneurysm measures 28 mm in diameter, slightly increased from prior ex am where it measured 24 mm in diameter. ACT 112: Negative or not required by law. Electronically signed by: Kamran Modi M.D. 09/14/2021 2:00 PM
[2021-09-14] MEDS ORDERED: cefTRIAXone SODIUM 1,000 MG/50 ML BAG IV STA (14:49)
--- NOTE | 2021-09-14 14:49 | XRay Report ---
XR chest 1V portable CLINICAL HISTORY: abd pain TECHNIQUE: Single frontal radiograph of the chest was obtained. Comparison: Comparison is made to chest one view 11/07/2000 FINDINGS: Stable orthopedic hardware about the right humerus. Cardiomegaly is noted. Also airspace opacities ar e seen. No pneumothorax is seen, pleural effusions cannot be excluded. IMPRESSION: Multifocal airspace opacities may represent atelectasis, pneumonia, and/or aspiration. Cannot exclude bilateral pleural effusions. ACT 112: Negative or not required by law. Electronically signed by: Kamran Modi M.D. 09/14/2021 2:47 PM
[2021-09-14] MEDS ORDERED: metroNIDAZOLE 500 MG TAB PO STA (14:50)
[2021-09-14] MEDS ORDERED: PIPERACILLIN/TAZOBACTAM 4.5 GM/120 ML BAG IV ONE (14:52)
--- NOTE | 2021-09-14 14:52 | Surgery Consultation ---
Date of Consultation September 14, 2021 Assessment & Plan (1) Abdominal distention: Patient with distended abdomen, gaseous dilation of the colon mildly dilated appendix Recent cough with sputum production, poor appetite, fatigue/weakness I do not think he has appendicitis as he is does not have any inflammation around the appendix His colon has gaseous distention but is not thickened it does not appear to be colitis although would check a C. difficile My concern would be some underlying respiratory illness and more of a pseudoobstruction of the colon A GI consult may be helpful Likely will need IV antibiotics Medical evaluation Patient does not need an urgent or emergent abdominal operation We will follow closely History of Present Illness History of Present Illness 80-year-old male presenting the emergency room with abdominal distention, shortness of breath He has had poor appetite he has been treated recently for relatively severe cough with sputum production Progressive abdominal distention getting weaker Patient appears short of breath at present time His CT scan does show mildly dilated appendix to 9 mm with no inflammation, gaseous distention of the colon throughout with 7 cm transverse colon-no evidence of thickening inflammation or pneumatosis His white blood count is 25,000 He appears to be mildly dehydrated, his vital signs are stable he is afebrile Allergies Allergy/AdvReac Type Severity Reaction Status Date / Time diltiazem [From Cardizem] Allergy Severe hives Verified 09/14/21 14:36 telmisartan Allergy Unknown Unknown Verified 09/14/21 14:36 Home Medications Medication Instructions Recorded Confirmed Type aspirin 81 mg tablet,delayed 81 mg PO HS 08/04/19 09/14/21 History release atenolol 25 mg tablet 25 mg PO BID #180 tab 12/25/20 09/14/21 Rx celecoxib 200 mg capsule (Celebrex) 200 mg PO BID #180 cap 12/25/20 09/14/21 Rx simvastatin 40 mg tablet 40 mg PO HS #90 tab 01/17/21 09/14/21 Rx mometasone-formoterol HFA 200 2 puff INHALATION BID #3 inhaler 02/19/21 09/14/21 Rx mcg-5 mcg/actuation aerosol inhaler (Dulera) tiotropium bromide 18 mcg capsule See Rx Instructions .ROUTE 07/12/21 09/14/21 Rx with inhalation device (Spiriva .COMPLEX #90 capsule with HandiHaler) verapamil 360 mg 24 hr 360 mg PO QAM #90 cap 08/20/21 Rx capsule,extended release albuterol sulfate 90 mcg/actuation 2 puff INHALATION Q6 PRN 09/14/21 09/14/21 History aerosol inhaler (Ventolin HFA) ondansetron 4 mg disintegrating 4 mg PO Q4 PRN 09/14/21 09/14/21 History tablet verapamil 360 mg 24 hr 360 mg PO QAM 09/14/21 09/14/21 History capsule,extended release Patient History Medical History (Updated 09/14/21 @ 15:00 by Alverto Chau MD, FACS) Abdominal pain Anemia Anemia Arteriosclerotic cardiovascular disease Asbestosis Chronic kidney disease Chronic obstructive pulmonary disease Chronic respiratory failure with hypoxia Dehydration Emphysematous bleb Hyperlipidemia Hypertension Impaired fasting glucose Influenza-like symptoms Leg pain, left Leukopenia Obstructive sleep apnea Onycholysis Pleural effusion on right Pleural plaque with presence of asbestos Pulmonary nodule Surgical History H/O colonoscopy History of cataract surgery History of shoulder surgery right shoulder surgery Family History Father Emphysema, unspecified Brother Cancer Mother Glaucoma Cancer Sister Renal failure Denies family history of Ovarian cancer Prostate cancer Myocardial infarction Breast cancer Colorectal cancer Social History Smoking Status: Former smoker Tobacco Type: Cigarettes Age Started Using Tobacco: 15; Age Quit Using Tobacco: 49; packs per day: 1; Second Hand Exposure: No; Hx Alcohol Use: Yes Alcohol type: beer Alcohol Intake Frequency Comment: has a couple once a week Hx Substance Use: No Preferred Language: [place] Communication Ability: Effective Visual Impairment: No Limitations Hearing Ability: Normal Rn Cardiac Required: No Beliefs That Will Affect Care: None marital status: Current Living Situation: Spouse Current Living Situation Comment: his had a stroke, he is living at 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 [employer] Feels Safe at Home: Yes Childhood Exposure to Second-Hand Smoke: Yes Dental Care, Regularly: No Physical Activity Frequency: Does not Exercise Seatbelt Use: always Sunscreen Use: No Assistive Devices: CPAP and Glasses Review of Systems Review of Systems: All systems reviewed & are unremarkable except as noted in HPI & below Physical Exam Physical Exam: Patient does have some labored breathing and his abdomen is distended He does have some bowel sounds he does not have any acute tenderness indicating peritonitis He is very tympanitic Very dry mucous membranes Constitutional: He does appear to be in mild distress mostly from a respiratory standpoint Eyes: + anicteric sclerae Respiratory: + labored breathing He does show labored breathing Cardiovascular: Rate/Rhythm: regular rate Gastrointestinal (Abdomen): Inspection/Auscultation: + abdomen distended and normal bowel sounds Patient does have relatively active bowel sounds Musculoskeletal: Head/Neck/Chest: head atraumatic Skin: no rashes, warm and dry Neurologic: awake Psychiatric: Orientation: alert Results & Data ([facility]) Vital Signs (Past 12 Hours) Vital Signs Temp Pulse Pulse Resp BP BP Pulse Ox 09/14/21 14:44 73 20 138/56 L 94 09/14/21 13:58 87 20 131/63 96 09/14/21 12:38 67 22 96 09/14/21 12:22 67 20 131/63 96 09/14/21 11:56 36.7 C 69 20 131/55 L 92 Diagnostic Findings I did review his CAT scan PG Care Time/CCT Total # of Minutes Spent Total Time Spent with Patient: Total time spent is greater than 50% in coordination of care (as documented) at patient's floor/unit and/or counseling patient: Coding Level of Care Code 65897 Initial Inpt Care Lvl 3 Diagnoses Abdominal distention R14.0
[2021-09-14 15:11] LABS: Appearance Urine Clear (Clear); Bacteria Urine Automated Negative (Negative); Blood Urine 1+ (Negative); Color Urine Dark Yellow; Glucose Urine UA Negative (Negative); Ketones Urine 1+ (Negative); Leukocyte Esterase Urine Negative (Negative); Nitrite Urine Negative (Negative); Protein Urine 1+ (Negative); Specific Gravity Urine > 1.045 (1.000-1.030); Urobilinogen Urine Negative (Negative); pH Urine 5.5 (4.5-7.5)
[2021-09-14 15:21] LABS: Magnesium 2.5 mg/dl (1.8-2.4); Phosphorus 2.7 mg/dl (2.5-4.9)
--- NOTE | 2021-09-14 15:50 | History & Physical Report ---
Date of Service September 14, 2021 Assessment & Plan (1) Abdominal distention: Plan: Unclear etiology at present - appreciate surgery input. - Bowel rest - IVF - Repeat KUB in AM - Consider GI consult due to potential for non-specific colitis - Stool for C. diff - less likely with no diarrhea but will check to be complete (2) Leukocytosis: Plan: Pt denies being on prednisone recently. Just finished a course of unknown antibiotic for ongoing cough. - Continuing empiric Zosyn for now - Follow labs - Check blood and urine cultures, stool for C. diff with recent antibiotic use (3) Acute kidney injury superimposed on CKD: Plan: Baseline creatinine appears to be around 1.1. Today 1.44. Suspect due to dehydration from limited oral intake for past 2-3 weeks - Continue IVF hydration - Daily labs (4) Hyperlipidemia: Plan: On a statin outpatient (5) Chronic obstructive pulmonary disease: Plan: Pt reports breathing at baseline at present - Continue home oxygen at 4L - Continue home meds (6) Obstructive sleep apnea: (7) Hypertension: Plan: Continue home meds (8) Chronic respiratory failure with hypoxia: Plan: Continue chronic oxygen therapy Plan: Pt seen and reviewed with collaborating physician, Dr. Shafer. Plan of care discussed and as outlined above. DVT Prophylaxis: SCDs for now, re-evaluate in AM Code Status: DNR/DNI Hattie Miles PA-C History of Present Illness Chief Complaint: abdominal distention Primary Care Provider: [employer], 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 Pt reports symptoms had a gradual onset but have gotten worse since they started. He denies abdominal pain but does report that the bloating is uncomfortable. He is not eating much due to loss of appetite, mild nausea, and frequent regurgitation but denies vomiting. His baseline bowel pattern is every 2-3 days, which continues at present, but he has noted more straining and difficulties with defecation. Denies diarrhea or blood in stools. He denies fevers, chills, sweats, malaise, fatigue, CP, palpitations. He reports a recent course of an unknown antibiotic (finished two days) for cough that persisted x weeks - improved with treatment. He reports otherwise his breathing has been at baseline, which is to say not great but no worse than usual. Denies increased O2 requirement although he does report that pulseox may drop to the 70s with ambulation, comes back up quickly with sitting down and resting. He recently moved to [facility] and is now following with Dr. Nice as his PCP. Allergies Allergy/AdvReac Type Severity Reaction Status Date / Time diltiazem [From [facility]] Allergy Severe hives Verified 09/14/21 14:36 telmisartan Allergy Unknown Unknown Verified 09/14/21 14:36 Home Medications Medication Instructions Recorded Confirmed Type aspirin 81 mg tablet,delayed 81 mg PO HS 08/04/19 09/14/21 History release atenolol 25 mg tablet 25 mg PO BID #180 tab 12/25/20 09/14/21 Rx celecoxib 200 mg capsule (Celebrex) 200 mg PO BID #180 cap 12/25/20 09/14/21 Rx simvastatin 40 mg tablet 40 mg PO HS #90 tab 01/17/21 09/14/21 Rx mometasone-formoterol HFA 200 2 puff INHALATION BID #3 inhaler 02/19/21 09/14/21 Rx mcg-5 mcg/actuation aerosol inhaler (Dulera) tiotropium bromide 18 mcg capsule See Rx Instructions .ROUTE 07/12/21 09/14/21 Rx with inhalation device (Spiriva .COMPLEX #90 capsule with HandiHaler) albuterol sulfate 90 mcg/actuation 2 puff INHALATION Q6 PRN 09/14/21 09/14/21 History aerosol inhaler (Ventolin HFA) ondansetron 4 mg disintegrating 4 mg PO Q4 PRN 09/14/21 09/14/21 History tablet verapamil 360 mg 24 hr 360 mg PO QAM 09/14/21 09/14/21 History capsule,extended release Past Med/Surg History Medical History Abdominal pain Anemia Arteriosclerotic cardiovascular disease Asbestosis Benign prostatic disease Chronic kidney disease Chronic obstructive pulmonary disease Chronic respiratory failure with hypoxia Dehydration Emphysematous bleb Hyperlipidemia Hypertension Impaired fasting glucose Obstructive sleep apnea Pleural effusion on right Pleural plaque with presence of asbestos Pulmonary nodule Surgical History H/O colonoscopy History of cataract surgery History of shoulder surgery right shoulder surgery Family History Father Emphysema, unspecified Brother Cancer Mother Glaucoma Cancer skin Sister Renal failure Denies family history of Ovarian cancer Prostate cancer Myocardial infarction Breast cancer Colorectal cancer Social History Smoking Status: Former smoker Tobacco Type: Cigarettes Age Started Using Tobacco: 15; Age Quit Using Tobacco: 49; packs per day: 1; Second Hand Exposure: No; Hx Alcohol Use: Yes Alcohol type: beer Alcohol Intake Frequency Comment: has a couple once a week Hx Substance Use: Yes Preferred Language: [place] Communication Ability: Effective Visual Impairment: No Limitations Hearing Ability: Normal Community Service Officer Required: No Beliefs That Will Affect Care: None marital status: Current Living Situation: Spouse and Personal Care Facility Current Living Situation Comment: recently moved from [employer] to 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 Other Information That Helps Us Care for You: No Feels Safe at Home: Yes Safety Concerns: Feels Safe At This Time Childhood Exposure to Second-Hand Smoke: Yes Dental Care, Regularly: No Physical Activity Frequency: Does not Exercise Seatbelt Use: always Sunscreen Use: No Assistive Devices: Denture - Upper, Denture - Lower, Glasses, Oxygen - Continuous and Wheelchair Review of Systems Review of Systems: All systems reviewed & are unremarkable except as noted in HPI & below Constitutional: + anorexia; no fever, no chills, no sweats, no fatigue and no malaise Eyes: no diplopia and no worsening vision Ear, Nose, Mouth, Throat: no nasal congestion, no nasal discharge and no sore throat Respiratory: as per Subjective / HPI Cardiovascular: no chest pain, no palpitations, no syncope and no edema Gastrointestinal: as per Subjective / HPI, + belching, + bloating and + nausea Genitourinary: no dysuria, no urinary frequency or no hematuria Musculoskeletal: no back pain and no neck pain Integumentary: no rash and no yellowing of the skin Neurologic: no generalized weakness, no dizziness, no headache(s) and no confusion Psychiatric: no depression and no anxiety Physical Exam Constitutional: well developed and well nourished; no acute distress Eyes: + anicteric sclerae Neck: trachea midline Respiratory: + abnormal respiratory effort (mildly increased work of breathing), no respiratory distress and does not use accessory muscles Auscultation: + diminished lung sounds; no rhonchi and no wheezes Cardiovascular: Rate/Rhythm: regular rate and regular rhythm Vessels: radial pulses present Extremities: normal capillary refill; no edema Gastrointestinal (Abdomen): Inspection/Auscultation: + abdomen distended (marked but soft) and + hypoactive bowel sounds Percussion/Palpation: + abdomen tender (minimal diffuse in LQ bilaterally) and + tympanic to percussion; no guarding Musculoskeletal: Head/Neck/Chest: normocephalic, head atraumatic and neck supple Skin: no jaundice Neurologic: moves all extremities; no focal motor deficits and not confused Psychiatric: A+Ox3, euthymic affect Results & Data Results & Data ([facility]) Vital Signs (Past 12 Hours) Vital Signs Temp Pulse Pulse Resp BP BP Pulse Ox 09/14/21 15:22 68 20 137/71 94 09/14/21 14:44 73 20 138/56 L 94 09/14/21 13:58 87 20 131/63 96 09/14/21 12:38 67 22 96 09/14/21 12:22 67 20 131/63 96 09/14/21 11:56 36.7 C 69 20 131/55 L 92 Laboratory Results Laboratory Results - last 24 hr 09/14/21 09/14/21 09/14/21 12:13 12:13 12:13 WBC 25.88 H RBC 4.05 L Hgb 12.7 L POC Hgb Hct 38.7 L POC Hct MCV 95.6 MCH 31.4 MCHC 32.8 RDW Std Deviation 50.1 H RDW Coeff of Jairon 14.3 Plt Count 150 MPV 12.5 H Immature Gran % (Auto) 0.9 Neut % (Auto) 85.9 Lymph % (Auto) 5.8 [place] % (Auto) 7.4 Eos % (Auto) 0.0 Baso % (Auto) 0.0 Neut # (Auto) 22.20 H Lymph # (Auto) 1.51 [place] # (Auto) 1.92 H Eos # (Auto) 0.01 Baso # (Auto) 0.01 Immature Gran # (Auto) 0.23 H POC Sodium Sodium 136 POC Potassium Potassium 4.1 POC Chloride Chloride 104 Carbon Dioxide 26 POC Total CO2 Anion Gap 6.0 POC Anion Gap POC BUN BUN 36 H Creatinine 1.44 H POC Creatinine Est Cr Clr Drug Dosing Not Reportable Est GFR ( Amer) 52.4 Est GFR (Non-Af Amer) 45.2 BUN/Creatinine Ratio 25.1 H Glucose 114 H POC Glucose (other) Lactate Calcium 8.7 POC Ioniz Calcium Hi Phosphorus 2.7 Magnesium 2.5 H Total Bilirubin 0.7 Direct Bilirubin 0.4 H AST 14 L ALT 35 Alkaline Phosphatase 87 Total Protein 7.6 Albumin 2.4 L Urine Color Urine Appearance Urine pH Ur Specific [place] Urine Protein Urine Glucose (UA) Urine Ketones Urine Blood Urine Nitrite Urine Bilirubin Urine Urobilinogen Ur Leukocyte Esterase Urine WBC (Auto) Urine RBC (Auto) U Hyaline Cast (Auto) U Epithel Cells (Auto) Urine Bacteria (Auto) SARS-CoV-2, RNA, NAAT 09/14/21 09/14/21 09/14/21 12:33 14:40 15:20 WBC RBC Hgb POC Hgb 11.6 L Hct POC Hct 34 L MCV MCH MCHC RDW Std Deviation RDW Coeff of Jairon Plt Count MPV Immature Gran % (Auto) Neut % (Auto) Lymph % (Auto) [place] % (Auto) Eos % (Auto) Baso % (Auto) Neut # (Auto) Lymph # (Auto) [place] # (Auto) Eos # (Auto) Baso # (Auto) Immature Gran # (Auto) POC Sodium 137 Sodium POC Potassium 4.3 Potassium POC Chloride 103 Chloride Carbon Dioxide POC Total CO2 24 Anion Gap POC Anion Gap 16.0 POC BUN 35 H BUN Creatinine POC Creatinine 1.3 Est Cr Clr Drug Dosing Est GFR ( Amer) Est GFR (Non-Af Amer) BUN/Creatinine Ratio Glucose POC Glucose (other) 119 H Lactate Calcium POC Ioniz Calcium Hi 1.12 Phosphorus Magnesium Total Bilirubin Direct Bilirubin AST ALT Alkaline Phosphatase Total Protein Albumin Urine Color Dark Yellow Urine Appearance Clear Urine pH 5.5 Ur Specific [place] > 1.045 H Urine Protein 1+ H Urine Glucose (UA) Negative Urine Ketones 1+ H Urine Blood 1+ H Urine Nitrite Negative Urine Bilirubin 1+ H Urine Urobilinogen Negative Ur Leukocyte Esterase Negative Urine WBC (Auto) 1-5 Urine RBC (Auto) 5-10 H U Hyaline Cast (Auto) 5-10 H U Epithel Cells (Auto) 10-20 H Urine Bacteria (Auto) Negative SARS-CoV-2, RNA, NAAT NEGATIVE 09/14/21 15:52 WBC RBC Hgb POC Hgb Hct POC Hct MCV MCH MCHC RDW Std Deviation RDW Coeff of Jairon Plt Count MPV Immature Gran % (Auto) Neut % (Auto) Lymph % (Auto) [place] % (Auto) Eos % (Auto) Baso % (Auto) Neut # (Auto) Lymph # (Auto) [place] # (Auto) Eos # (Auto) Baso # (Auto) Immature Gran # (Auto) POC Sodium Sodium POC Potassium Potassium POC Chloride Chloride Carbon Dioxide POC Total CO2 Anion Gap POC Anion Gap POC BUN BUN Creatinine POC Creatinine Est Cr Clr Drug Dosing Est GFR ( Amer) Est GFR (Non-Af Amer) BUN/Creatinine Ratio Glucose POC Glucose (other) Lactate Pending Calcium POC Ioniz Calcium Hi Phosphorus Magnesium Total Bilirubin Direct Bilirubin AST ALT Alkaline Phosphatase Total Protein Albumin Urine Color Urine Appearance Urine pH Ur Specific [place] Urine Protein Urine Glucose (UA) Urine Ketones Urine Blood Urine Nitrite Urine Bilirubin Urine Urobilinogen Ur Leukocyte Esterase Urine WBC (Auto) Urine RBC (Auto) U Hyaline Cast (Auto) U Epithel Cells (Auto) Urine Bacteria (Auto) SARS-CoV-2, RNA, NAAT Diagnostic Findings Chest X-ray 09/14/21 - IMPRESSION: Multifocal airspace opacities may represent atelectasis, pneumonia, and/or aspiration. Cannot exclude bilateral pleural effusions. CT Abd/Pel 09/14/21 - IMPRESSION: 1. Prominent colonic gas without evidence of small bowel obstruction or volvulus. 2. Prominence of the appendix, new from prior exam. Clinical correlation is recommended for acute appendicitis. 3. Infrarenal abdominal aortic aneurysm measures 28 mm in diameter, slightly increased from prior exam where it measured 24 mm in diameter. Medications Administered Sodium Chloride (Nss) 500 mls @ 125 mls/hr IV .Q4H OMID Stop: 10/14/21 12:29 Last Infusion: 09/14/21 15:17 Dose: 0 mls/hr Documented by: [id number] Admin: 09/14/21 12:37 Dose: 125 mls/hr Documented by: [id number] Discontinued Medications Piperacillin Sod/Tazobactam Sod (Zosyn) 4.5 gm in 120 mls @ 240 mls/hr IV NOW ONE Stop: 09/14/21 15:21 Last Infusion: 09/14/21 15:55 Dose: 0 mls/hr Documented by: [id number] Admin: 09/14/21 15:16 Dose: 240 mls/hr Documented by: [id number] Ioversol (Optiray 320 100ml) 92 ml IV ONCE ONE Stop: 09/14/21 13:46 Last Admin: 09/14/21 13:45 Dose: 92 ml Documented by: [id number] Code Status & VTE Plan VTE Prophylaxis Plan VTE Prophylaxis will be ordered: Yes Supervising Physician Co-Signing Physician Notes Attending Addendum: care coordinated with CHANTAL Miles please refer to her notes for full details, I agree with her notes patient seen and examined, records reviewed by myself as well on exam, patient seen resting in bed, comfortable not in distress reports he still has abdominal discomfort no flatus/BM no nausea no other symptoms VS noted and reviewed oriented x 3, not in distress, speaks in sentences with no effort nor accessory muscle use normal rate, regular rhythm, no murmurs clear breath sounds bilaterally hypoactive bowel sounds, non distended, soft, nontender no bipedal edema, erythema, warmth no neuro deficits WBC 25 Hg 12.[address] abd/pelvis: 1. Prominent colonic gas without evidence of small bowel obstruction or volvulus. 2. Prominence of the appendix, new from prior exam. Clinical correlation is recommended for acute appendicitis. 3. Infrarenal abdominal aortic aneurysm measures 28 mm in diameter, slightly increased from prior exam where it measured 24 mm in diameter. ASSESSMENT AND PLAN COLONIC DISTENTION unclear etiology: colitis? pseudoobstruction? check stool for C dif Zosyn IV started NPO, IV fluids Gen Surg and GI consulted monitor closely ACUTE KIDNEY INJURY baseline 1.1 crea 1.4 IV fluids COPD, ON 4 L NASAL CANULA stable other diagnoses and plan of care as per OLIVIA Miles notes Thien Shafer MD
[2021-09-14 15:55] LABS: Bilirubin Urine 1+ (Negative)
[2021-09-14] MEDS ORDERED: CONSULT PHARMACY STA (16:37)
--- NOTE | 2021-09-14 17:11 | Emergency Department Note ---
History of Present Illness General Chief Complaint: Abdominal Pain Stated Complaint: NO APPETITE/BELLY SWELLING CAN'T EAT Time Seen by Provider: 09/14/21 12:20 History of Present Illness Provider Complaint: abdominal pain Onset (ago): 2 week(s) Pain Consistency: intermittent Location: diffuse Severity: moderate Maximum Pain Intensity: 4 Current Pain Intensity: 4 Quality: + aching and + fullness Relieved By: + nothing Exacerbated By: + nothing Context: no foreign travel, no possible food poisoning, no sick contacts, no recent antibiotic use, no recent surgery/procedure or no recent injury Associated Symptoms: + nausea and + constipation; no vomiting, no diarrhea, no fever, no chills, no dysuria, no hematemesis, no hematochezia, no melena, no hematuria, no anorexia, no syncope, no headache, no neck pain, no back pain, no chest pain, no weakness, no breathing difficulty and no numbness Home Medications Medication Instructions Recorded Confirmed Type aspirin 81 mg tablet,delayed 81 mg PO HS 08/04/19 09/14/21 History release atenolol 25 mg tablet 25 mg PO BID #180 tab 12/25/20 09/14/21 Rx celecoxib 200 mg capsule (Celebrex) 200 mg PO BID #180 cap 12/25/20 09/14/21 Rx simvastatin 40 mg tablet 40 mg PO HS #90 tab 01/17/21 09/14/21 Rx mometasone-formoterol HFA 200 2 puff INHALATION BID #3 inhaler 02/19/21 09/14/21 Rx mcg-5 mcg/actuation aerosol inhaler (Dulera) tiotropium bromide 18 mcg capsule See Rx Instructions .ROUTE 07/12/21 09/14/21 Rx with inhalation device (Spiriva .COMPLEX #90 capsule with HandiHaler) albuterol sulfate 90 mcg/actuation 2 puff INHALATION Q6 PRN 09/14/21 09/14/21 History aerosol inhaler (Ventolin HFA) ondansetron 4 mg disintegrating 4 mg PO Q4 PRN 09/14/21 09/14/21 History tablet verapamil 360 mg 24 hr 360 mg PO QAM 09/14/21 09/14/21 History capsule,extended release Allergies Allergy/AdvReac Type Severity Reaction Status Date / Time diltiazem [From Cardize] Allergy Severe hives Verified 09/14/21 14:36 telmisartan Allergy Unknown Unknown Verified 09/14/21 14:36 Past Med/Surg History Medical History Abdominal pain Anemia Arteriosclerotic cardiovascular disease Asbestosis Benign prostatic disease Chronic kidney disease Chronic obstructive pulmonary disease Chronic respiratory failure with hypoxia Dehydration Emphysematous bleb Hyperlipidemia Hypertension Impaired fasting glucose Obstructive sleep apnea Pleural effusion on right Pleural plaque with presence of asbestos Pulmonary nodule Surgical History H/O colonoscopy History of cataract surgery History of shoulder surgery right shoulder surgery Family History Father Emphysema, unspecified Brother Cancer Mother Glaucoma Cancer skin Sister Renal failure Denies family history of Ovarian cancer Prostate cancer Myocardial infarction Breast cancer Colorectal cancer Social History Smoking Status: Former smoker Tobacco Type: Cigarettes Age Started Using Tobacco: 15; Age Quit Using Tobacco: 49; packs per day: 1; Second Hand Exposure: No; Hx Alcohol Use: Yes Alcohol type: beer Alcohol Intake Frequency Comment: has a couple once a week Hx Substance Use: No Preferred Language: Slovak Communication Ability: Effective Visual Impairment: No Limitations Hearing Ability: Normal Medical Lead Required: No Beliefs That Will Affect Care: None marital status: Current Living Situation: Spouse Current Living Situation Comment: recently moved from [place] to [facility] current occupational status: retired 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 [employer] Feels Safe at Home: Yes Childhood Exposure to Second-Hand Smoke: Yes Dental Care, Regularly: No Physical Activity Frequency: Does not Exercise Seatbelt Use: always Sunscreen Use: No Assistive Devices: CPAP and Glasses Review of Systems A total of 10 systems reviewed and were otherwise negative Physical Exam Vital Signs: Vital Signs - 24 hr 09/14/21 11:56 09/14/21 12:22 09/14/21 12:38 Temperature 36.7 C Temperature Source Temporal Artery Sc an Pulse Rate 69 67 Pulse Rate [Left] 67 Pulse Rhythm Regular Regular Pulse Rhythm [Left ] Regular Pulse Strength Normal Pulse Strength [Le ft] Normal Respiratory Rate 20 20 22 Respiratory Effort / Characteristics Non-Labored Sponta neous Non-Labored Respiratory Depth Normal Normal Respiratory Patter n Regular Blood Pressure 131/55 L Blood Pressure [Le ft Arm] 131/63 Blood Pressure Sherry n 80 Blood Pressure Sherry n [Left Arm] 85 Blood Pressure Pos ition Sitting Blood Pressure Pos ition [Left Arm] Sitting Pulse Oximetry 92 96 96 Oxygen Delivery Me thod Nasal Cannula Nasal Cannula Nasal Cannula Oxygen Flow Rate 2 4 4 Sepsis Recent Feve r Within 48 Hours No Sepsis New/Unexpla ined Change in Men michelle Status No Sepsis Action Take n by Nursing No Action Required 09/14/21 13:58 09/14/21 14:44 09/14/21 15:22 Temperature Temperature Source Pulse Rate Pulse Rate [Left] 87 73 68 Pulse Rhythm Pulse Rhythm [Left ] Regular Pulse Strength Pulse Strength [Le ft] Normal Respiratory Rate 20 20 20 Respiratory Effort / Characteristics Non-Labored Respiratory Depth Normal Respiratory Patter n Blood Pressure Blood Pressure [Le ft Arm] 131/63 138/56 L 137/71 Blood Pressure Sherry n Blood Pressure Sherry n [Left Arm] 85 83 93 Blood Pressure Pos ition Blood Pressure Pos ition [Left Arm] Pulse Oximetry 96 94 94 Oxygen Delivery Me thod Nasal Cannula Nasal Cannula Nasal Cannula Oxygen Flow Rate 4 4 4 Sepsis Recent Feve r Within 48 Hours Sepsis New/Unexpla ined Change in Men michelle Status Sepsis Action Take n by Nursing 09/14/21 16:58 Temperature Temperature Source Pulse Rate Pulse Rate [Left] 62 Pulse Rhythm Pulse Rhythm [Left ] Pulse Strength Pulse Strength [Le ft] Respiratory Rate 20 Respiratory Effort / Characteristics Non-Labored Respiratory Depth Normal Respiratory Patter n Blood Pressure Blood Pressure [Le ft Arm] Blood Pressure Sehrry n Blood Pressure Sherry n [Left Arm] Blood Pressure Pos ition Blood Pressure Pos ition [Left Arm] Pulse Oximetry 95 Oxygen Delivery Me thod Nasal Cannula Oxygen Flow Rate 4 Sepsis Recent Feve r Within 48 Hours Sepsis New/Unexpla ined Change in Men michelle Status Sepsis Action Take n by Nursing Physical Exam: Physical Exam GENERAL: He is oriented to person, place, and time. He appears well-developed and well-nourished. He does not appear distressed. HENT: Exam performed. - Head: Normocephalic and atraumatic. - Right Ear: External ear normal. No mastoid tenderness. - Left Ear: External ear normal. No mastoid tenderness. - Mouth/Throat: The oropharynx is clear and moist. No trismus in the jaw. No dental abscesses or uvula swelling. No oropharyngeal exudate or tonsillar abscesses. EYES: Conjunctivae and EOM are normal. Pupils are equal, round, and reactive to light. Right eye exhibits no discharge. Left eye exhibits no discharge. No scleral icterus. NECK: Normal range of motion. Neck supple. No JVD present. No spinous process tenderness present. No carotid bruit present. No rigidity. No tracheal deviation and normal range of motion present. No Brudzinski's sign and no Kernig's sign noted. CV: Normal rate, regular rhythm, normal heart sounds and intact distal pulses. There is no peripheral edema. Palpable radial pulses bue. PULM/CHEST: Rhonchi bilaterally. - Chest Wall: He exhibits no tenderness. ABD: The abdomen is distended and tympanic. Diffuse pain on palpation of the abdomen. MUSC/SKEL: Normal range of motion. There is no peripheral edema, tenderness or deformity. LYMPH: No cervical adenopathy. NEURO: He is alert and oriented to person, place, and time. He has normal strength. No cranial nerve deficit or sensory deficit. Coordination and gait normal. GCS eye subscore is 4. GCS verbal subscore is 5. GCS motor subscore is 6. Cerebellar tests wnl. SKIN: Skin is warm and dry. He is not diaphoretic. PSYCH: He has a normal mood and affect. Behavior is normal. Judgment and thought content normal. Course Course 1220: The patient was evaluated in room C6. A complete history and physical exam was performed Cardiac monitoring: An order was placed for continuous cardiac monitoring. The monitor shows a rate of sinus60 with sinusrhythm 1430: Vital signs stable. Labs show leukocytosis of 25.8. Otherwise within normal limits. Imaging shows no small bowel obstruction. It does mention a enlarged appendix. On repeat assessment the patient does not have pain on palpation of his right lower quadrant. I discussed with general surgery Dr. Chau who states he will evaluate the patient. 1450: Dr. Chau evaluated the patient does not think that the patient has appendicitis. He does recommend that the patient be admitted to the inpatient hospitalist team and he will be on consult and he recommends GI evaluation. He does recommend antibiotics. Zosyn ordered for the patient as there is a shortage of Flagyl IV piggyback. Dr. Mariaelena Wang hospitalist team made aware of the patient. Administered Medications Sodium Chloride (Nss) 500 mls @ 125 mls/hr IV .Q4H OMID Stop: 10/14/21 12:29 Last Infusion: 09/14/21 15:17 Dose: 0 mls/hr Documented by: [id number] Admin: 09/14/21 12:37 Dose: 125 mls/hr Documented by: [id number] Discontinued Medications Piperacillin Sod/Tazobactam Sod (Zosyn) 4.5 gm in 120 mls @ 240 mls/hr IV NOW ONE Stop: 09/14/21 15:21 Last Infusion: 09/14/21 15:55 Dose: 0 mls/hr Documented by: [id number] Admin: 09/14/21 15:16 Dose: 240 mls/hr Documented by: [id number] Ioversol (Optiray 320 100ml) 92 ml IV ONCE ONE Stop: 09/14/21 13:46 Last Admin: 09/14/21 13:45 Dose: 92 ml Documented by: [id number] Medical Decision Making Laboratory Data Result diagrams: 09/14/21 12:13 09/14/21 12:13 Lab Results 09/14/21 09/14/21 09/14/21 Range/Units 12:13 12:13 12:13 WBC 25.88 H (4.8-10.8) K/uL RBC 4.05 L (4.7-6.1) M/uL Hgb 12.7 L (14.0-18.0) g/dL POC Hgb (14.0-18.0) g/dl Hct 38.7 L (42-52) % POC Hct (42-52) % MCV 95.6 (80-100) fL MCH 31.4 (25-34) pg MCHC 32.8 (32-36) g/dL RDW Std Deviation 50.1 H (36.4-46.3) fL RDW Coeff of Jairon 14.3 (11.5-14.5) % Plt Count 150 (130-400) K/uL MPV 12.5 H (7.4-10.4) fL Immature Gran % (Auto) 0.9 % Neut % (Auto) 85.9 % Lymph % (Auto) 5.8 % [place] % (Auto) 7.4 % Eos % (Auto) 0.0 % Baso % (Auto) 0.0 % Neut # (Auto) 22.20 H (1.4-6.5) K/uL Lymph # (Auto) 1.51 (1.2-3.4) K/uL [place] # (Auto) 1.92 H (0.11-0.59) K/uL Eos # (Auto) 0.01 (0-0.5) K/uL Baso # (Auto) 0.01 (0-0.2) K/uL Immature Gran # (Auto) 0.23 H (0.00-0.02) K/uL POC Sodium (135-144) mmol/L Sodium 136 (136-145) mmol/L POC Potassium (3.3-5.0) mmol/L Potassium 4.1 (3.5-5.1) mmol/L POC Chloride (101-112) mmol/L Chloride 104 (98-107) mmol/L Carbon Dioxide 26 (21-32) mmol/L POC Total CO2 (24-31) mmol/L Anion Gap 6.0 (3-11) POC Anion Gap (16-25) mmol/L POC BUN (7-18) mg/dl BUN 36 H (7-18) mg/dl Creatinine 1.44 H (0.6-1.4) mg/dl POC Creatinine (0.6-1.3) mg/dl Est Cr Clr Drug Dosing Not Reportable Est GFR ( Amer) 52.4 ml/min Est GFR (Non-Af Amer) 45.2 ml/min BUN/Creatinine Ratio 25.1 H (10-20) Glucose 114 H (70-99) mg/dl POC Glucose (other) (70-99) mg/dl Lactate (0.4-2.0) mmol/L Calcium 8.7 (8.5-10.1) mg/dl POC Ioniz Calcium Hi (1.12-1.32) mmol/l Phosphorus 2.7 (2.5-4.9) mg/dl Magnesium 2.5 H (1.8-2.4) mg/dl Total Bilirubin 0.7 (0.2-1) mg/dl Direct Bilirubin 0.4 H (0-0.2) mg/dl AST 14 L (15-37) U/L ALT 35 (12-78) U/L Alkaline Phosphatase 87 (45-117) U/L Total Protein 7.6 (6.4-8.2) gm/dl Albumin 2.4 L (3.4-5.0) gm/dl Urine Color Urine Appearance (Clear) Urine pH (4.5-7.5) Ur Specific [place] (1.000-1.030) Urine Protein (Negative) Urine Glucose (UA) (Negative) Urine Ketones (Negative) Urine Blood (Negative) Urine Nitrite (Negative) Urine Bilirubin (Negative) Urine Urobilinogen (Negative) Ur Leukocyte Esterase (Negative) Urine WBC (Auto) (0-5) /hpf Urine RBC (Auto) (0-4) /hpf U Hyaline Cast (Auto) (0-5) /lpf U Epithel Cells (Auto) (0-5) /lpf Urine Bacteria (Auto) (Negative) SARS-CoV-2, RNA, NAAT (NEGATIVE) 09/14/21 09/14/21 09/14/21 Range/Units 12:33 14:40 15:20 WBC (4.8-10.8) K/uL RBC (4.7-6.1) M/uL Hgb (14.0-18.0) g/dL POC Hgb 11.6 L (14.0-18.0) g/dl Hct (42-52) % POC Hct 34 L (42-52) % MCV (80-100) fL MCH (25-34) pg MCHC (32-36) g/dL RDW Std Deviation (36.4-46.3) fL RDW Coeff of Jairon (11.5-14.5) % Plt Count (130-400) K/uL MPV (7.4-10.4) fL Immature Gran % (Auto) % Neut % (Auto) % Lymph % (Auto) % [place] % (Auto) % Eos % (Auto) % Baso % (Auto) % Neut # (Auto) (1.4-6.5) K/uL Lymph # (Auto) (1.2-3.4) K/uL [place] # (Auto) (0.11-0.59) K/uL Eos # (Auto) (0-0.5) K/uL Baso # (Auto) (0-0.2) K/uL Immature Gran # (Auto) (0.00-0.02) K/uL POC Sodium 137 (135-144) mmol/L Sodium (136-145) mmol/L POC Potassium 4.3 (3.3-5.0) mmol/L Potassium (3.5-5.1) mmol/L POC Chloride 103 (101-112) mmol/L Chloride (98-107) mmol/L Carbon Dioxide (21-32) mmol/L POC Total CO2 24 (24-31) mmol/L Anion Gap (3-11) POC Anion Gap 16.0 (16-25) mmol/L POC BUN 35 H (7-18) mg/dl BUN (7-18) mg/dl Creatinine (0.6-1.4) mg/dl POC Creatinine 1.3 (0.6-1.3) mg/dl Est Cr Clr Drug Dosing Est GFR ( Amer) ml/min Est GFR (Non-Af Amer) ml/min BUN/Creatinine Ratio (10-20) Glucose (70-99) mg/dl POC Glucose (other) 119 H (70-99) mg/dl Lactate (0.4-2.0) mmol/L Calcium (8.5-10.1) mg/dl POC Ioniz Calcium Hi 1.12 (1.12-1.32) mmol/l Phosphorus (2.5-4.9) mg/dl Magnesium (1.8-2.4) mg/dl Total Bilirubin (0.2-1) mg/dl Direct Bilirubin (0-0.2) mg/dl AST (15-37) U/L ALT (12-78) U/L Alkaline Phosphatase (45-117) U/L Total Protein (6.4-8.2) gm/dl Albumin (3.4-5.0) gm/dl Urine Color Dark Yellow Urine Appearance Clear (Clear) Urine pH 5.5 (4.5-7.5) Ur Specific [place] > 1.045 H (1.000-1.030) Urine Protein 1+ H (Negative) Urine Glucose (UA) Negative (Negative) Urine Ketones 1+ H (Negative) Urine Blood 1+ H (Negative) Urine Nitrite Negative (Negative) Urine Bilirubin 1+ H (Negative) Urine Urobilinogen Negative (Negative) Ur Leukocyte Esterase Negative (Negative) Urine WBC (Auto) 1-5 (0-5) /hpf Urine RBC (Auto) 5-10 H (0-4) /hpf U Hyaline Cast (Auto) 5-10 H (0-5) /lpf U Epithel Cells (Auto) 10-20 H (0-5) /lpf Urine Bacteria (Auto) Negative (Negative) SARS-CoV-2, RNA, NAAT NEGATIVE (NEGATIVE) 09/14/21 Range/Units 15:52 WBC (4.8-10.8) K/uL RBC (4.7-6.1) M/uL Hgb (14.0-18.0) g/dL POC Hgb (14.0-18.0) g/dl Hct (42-52) % POC Hct (42-52) % MCV (80-100) fL MCH (25-34) pg MCHC (32-36) g/dL RDW Std Deviation (36.4-46.3) fL RDW Coeff of Jairon (11.5-14.5) % Plt Count (130-400) K/uL MPV (7.4-10.4) fL Immature Gran % (Auto) % Neut % (Auto) % Lymph % (Auto) % [place] % (Auto) % Eos % (Auto) % Baso % (Auto) % Neut # (Auto) (1.4-6.5) K/uL Lymph # (Auto) (1.2-3.4) K/uL [place] # (Auto) (0.11-0.59) K/uL Eos # (Auto) (0-0.5) K/uL Baso # (Auto) (0-0.2) K/uL Immature Gran # (Auto) (0.00-0.02) K/uL POC Sodium (135-144) mmol/L Sodium (136-145) mmol/L POC Potassium (3.3-5.0) mmol/L Potassium (3.5-5.1) mmol/L POC Chloride (101-112) mmol/L Chloride (98-107) mmol/L Carbon Dioxide (21-32) mmol/L POC Total CO2 (24-31) mmol/L Anion Gap (3-11) POC Anion Gap (16-25) mmol/L POC BUN (7-18) mg/dl BUN (7-18) mg/dl Creatinine (0.6-1.4) mg/dl POC Creatinine (0.6-1.3) mg/dl Est Cr Clr Drug Dosing Est GFR ( Amer) ml/min Est GFR (Non-Af Amer) ml/min BUN/Creatinine Ratio (10-20) Glucose (70-99) mg/dl POC Glucose (other) (70-99) mg/dl Lactate 1.2 (0.4-2.0) mmol/L Calcium (8.5-10.1) mg/dl POC Ioniz Calcium Hi (1.12-1.32) mmol/l Phosphorus (2.5-4.9) mg/dl Magnesium (1.8-2.4) mg/dl Total Bilirubin (0.2-1) mg/dl Direct Bilirubin (0-0.2) mg/dl AST (15-37) U/L ALT (12-78) U/L Alkaline Phosphatase (45-117) U/L Total Protein (6.4-8.2) gm/dl Albumin (3.4-5.0) gm/dl Urine Color Urine Appearance (Clear) Urine pH (4.5-7.5) Ur Specific [place] (1.000-1.030) Urine Protein (Negative) Urine Glucose (UA) (Negative) Urine Ketones (Negative) Urine Blood (Negative) Urine Nitrite (Negative) Urine Bilirubin (Negative) Urine Urobilinogen (Negative) Ur Leukocyte Esterase (Negative) Urine WBC (Auto) (0-5) /hpf Urine RBC (Auto) (0-4) /hpf U Hyaline Cast (Auto) (0-5) /lpf U Epithel Cells (Auto) (0-5) /lpf Urine Bacteria (Auto) (Negative) SARS-CoV-2, RNA, NAAT (NEGATIVE) Imaging Data Radiologist's Impression: Abdomen/Pelvis CT 09/14/21 12:24 CT abd pelvis IV con only CLINICAL HISTORY: ro sbo TECHNIQUE: Helical axial images of the abdomen and pelvis were obtained and displayed. Automated dose lowering techniques and/or adjustment according to patient size were utilized for this exam. This exam was performed with intravenous contrast. COMPARISON: Comparison is made to CT abdomen and pelvis 12/24/2017 FINDINGS: Lower chest: Small bilateral pleural effusions are seen. Prominent extrapleural fat, pleural thickening and calcified plaques are noted. Cardiomegaly is seen. Liver: Unremarkable. No focal lesions are seen. Gallbladder and biliary tree: No calcified gallstones. Normal caliber wall. No intra- or extrahepatic biliary ductal dilation. Pancreas: Unremarkable, no focal lesions. Spleen: Splenule is incidentally noted. Adrenals: Unremarkable. Kidneys and ureters: Calcified. A renal cyst is again seen at the left kidney inferior pole. Bladder: Unremarkable. Reproductive organs: Unremarkable. Bowel: Diffuse gaseous distention is seen in the large bowel. No evidence of small bowel obstruction is seen. Diverticulosis is seen without evidence of diverticulitis. The appendix is prominent compared to prior exam, measuring up to 9 mm at the tip. Lymph nodes Retroperitoneal: Unremarkable. Mesenteric: Subcentimeter lymph nodes are noted. Pelvic: Unremarkable. Peritoneum: Normal Vessels: Atherosclerotic calcifications are seen. An infrarenal abdominal aortic aneurysm measures 28 mm in diameter, increased from prior exam where it measured 25 mm in diameter. Abdominal wall: Bilateral fat-containing inguinal hernias are seen. Fat- containing umbilical hernia is noted. Bones: Degenerative changes in the visualized spine. Redemonstration of anterior wedge deformity of L3. IMPRESSION: 1. Prominent colonic gas without evidence of small bowel obstruction or volvulus. 2. Prominence of the appendix, new from prior exam. Clinical correlation is recommended for acute appendicitis. 3. Infrarenal abdominal aortic aneurysm measures 28 mm in diameter, slightly increased from prior exam where it measured 24 mm in diameter. ACT 112: Negative or not required by law. Electronically signed by: Kamran Modi M.D. 09/14/2021 2:00 PM Chest X-Ray 09/14/21 14:31 XR chest 1V portable CLINICAL HISTORY: abd pain TECHNIQUE: Single frontal radiograph of the chest was obtained. Comparison: Comparison is made to chest one view 11/07/2000 FINDINGS: Stable orthopedic hardware about the right humerus. Cardiomegaly is noted. Also airspace opacities are seen. No pneumothorax is seen, pleural effusions cannot be excluded. IMPRESSION: Multifocal airspace opacities may represent atelectasis, pneumonia, and/or aspiration. Cannot exclude bilateral pleural effusions. ACT 112: Negative or not required by law. Electronically signed by: Kamran Modi M.D. 09/14/2021 2:47 PM [facility] Narrative 1220: The patient was evaluated in room C6. A complete history and physical exam was performed Cardiac monitoring: An order was placed for continuous cardiac monitoring. The monitor shows a rate of sinus60 with sinusrhythm 1430: Vital signs stable. Labs show leukocytosis of 25.8. Otherwise within normal limits. Imaging shows no small bowel obstruction. It does mention a enlarged appendix. On repeat assessment the patient does not have pain on palpation of his right lower quadrant. I discussed with general surgery Dr. Chau who states he will evaluate the patient. 1450: Dr. Chau evaluated the patient does not think that the patient has appendicitis. He does recommend that the patient be admitted to the inpatient hospitalist team and he will be on consult and he recommends GI evaluation. He does recommend antibiotics. Zosyn ordered for the patient as there is a shortage of Flagyl IV piggyback. Dr. Mariaelena Wang hospitalist team made aware of the patient. Impression & Plan Abdominal pain Discharge Plan Visit Data Chief Complaint: Abdominal Pain Stated Complaint: NO APPETITE/BELLY SWELLING CAN'T EAT Discharge Problem: Abdominal pain Patient Disposition: Admitted As Inpatient Forms Stand Alone Forms: My [facility] Prescriptions Prescriptions: No Action atenolol 25 mg tablet 25 mg PO BID Qty: 180 RF: 3 celecoxib [Celebrex] 200 mg capsule 200 mg PO BID Qty: 180 RF: 3 simvastatin 40 mg tablet 40 mg PO HS Qty: 90 RF: 3 Spiriva with HandiHaler 18 mcg capsule, w/inhalation device See Rx Instructions .ROUTE .COMPLEX Qty: 90 RF: 3 aspirin 81 mg tablet,delayed release (DR/EC) 81 mg PO HS RF: 0 Dulera 200-5 mcg/actuation HFA aerosol inhaler 2 puff inhalation BID Qty: 3 RF: 3 verapamil 360 mg capsule,ext rel. pellets 24 hr 360 mg PO QAM RF: 0 albuterol sulfate [Ventolin HFA] 90 mcg/actuation HFA aerosol inhaler 2 puff INHALATION Q6 PRN (Reason: Wheezing) RF: 0 ondansetron 4 mg tablet,disintegrating 4 mg PO Q4 PRN (Reason: Nausea) RF: 0 [facility] -
[2021-09-14] MEDS ORDERED: ALBUTEROL HFA 8 GM INHALER INH PRN (19:11)
[2021-09-14] MEDS ORDERED: PIPERACILL/TAZOBAC CONSULT ACTIVE PRN (19:30)
[2021-09-14] MEDS ORDERED: INFLUENZA VACCINE HIGH DOSE PF 65+ 0.7 ML SYR IM ONE (19:44)
[2021-09-14] MEDS: PIPERACILLIN/TAZOBACTAM 3.375 GM in DEXTROSE 5% 100 ML IV SCH (20:18)
[2021-09-14] MEDS: SODIUM CHLORIDE 0.9% 1,000 ML IV SCH (20:20)
[2021-09-14] MEDS: ATENOLOL 25 MG TABLET PO SCH (21:50)
[2021-09-15] MEDS: PIPERACILLIN/TAZOBACTAM 3.375 GM in DEXTROSE 5% 100 ML IV SCH ×2 (04:12→12:09)
[2021-09-15] MEDS: SODIUM CHLORIDE 0.9% 1,000 ML IV SCH ×3 (04:14→21:37)
--- NOTE | 2021-09-15 05:09 | Surgery Progress Note ---
Date of Service September 15, 2021 Assessment & Plan (1) Abdominal distention: Plan: Patient has been admitted on the hospitalist service. Recommend proceeding as follows: Maintain n.p.o. status until bowel function has improved Continue IV fluid for hydration Continue antibiotics in the form of Zosyn Patient seen yesterday by Dr. Chau who did not feel surgical intervention was required at this time. A GI consultation has been recommended and this has been placed by the primary service (consultation is pending) Admission and Anticipated Discharge Date Admission Date: September 14, 2021 Supervising Physician Co-Signing Physician Notes Patient's vital signs are stable, he is afebrile He did not receive any pain medication He is on IV antibiotics His abdomen continues to be distended with decreased bowel sounds although he does have some This does not appear to be a mechanical obstruction If he were to require surgery he would obviously end up with a ileostomy or colostomy which I did discuss with him GI evaluation is pending Check a.m. labs especially his electrolytes mag and Phos Subjective Patient currently resting in bed. Since admission he has not had a bowel movement and is not passing any flatus. He does report some intermittent nausea but is not vomiting. He notes his abdomen is distended. He does report some abdominal pain in a generalized fashion. Physical Exam Gastrointestinal (Abdomen): Patient's abdomen is noted to be moderately distended. It is tympanic to percussion. Bowel sounds are hypoactive. There is no rebound tenderness or guarding but pain is noted with palpation in a generalized fashion. Results & Data ([facility]) Vital Signs (Past 12 Hours) Vital Signs Temp Pulse Resp BP BP Pulse Ox 09/14/21 23:38 36.7 C 58 L 20 110/57 L 92 09/14/21 18:41 36.7 C 62 18 146/75 H 94 PG Care Time/CCT Total # of Minutes Spent Total Time Spent with Patient: Total time spent is greater than 50% in coordination of care (as documented) at patient's floor/unit and/or counseling patient: Coding Level of Care Code 39609 Subseq Hosp Care Lvl 1 Diagnoses Abdominal distention R14.0
[2021-09-15] MEDS ORDERED: ACETAMINOPHEN 325 MG TAB PO PRN (05:57)
[2021-09-15] MEDS ORDERED: ACETAMINOPHEN 1000 MG/100 ML IV IV ONE (05:58)
[2021-09-15] MEDS: FLUTICASONE/VILANTEROL 100/25MCG 14 PUFFS/INHALER INH SCH (08:07)
[2021-09-15] MEDS: VERAPAMIL HCL 180 MG TABCR PO SCH (08:08)
[2021-09-15] MEDS: ATENOLOL 25 MG TABLET PO SCH (08:08)
[2021-09-15] MEDS: UMECLIDINIUM BROMIDE 62.5MCG/BLISTER 7 PUFFS/INHALER INH SCH (08:08)
[2021-09-15 08:56] LABS: BUN Creatinine Ratio 25.7 (10-20); Calcium 7.7 mg/dl (8.5-10.1); Creatinine Clr Calc Pharmacy 54.4 ml/min; Est GFR (African American) 68.8 ml/min; Est GFR (Non-African American) 59.4 ml/min; Potassium 4.1 mmol/L (3.5-5.1)
[2021-09-15 08:58] LABS: Magnesium 2.4 mg/dl (1.8-2.4); Phosphorus 2.4 mg/dl (2.5-4.9)
[2021-09-15 09:00] LABS: Basophils # (auto) 0.01 K/uL (0-0.2); Eosinophils # (auto) 0.01 K/uL (0-0.5); Hematocrit (blood only) 34.8 % (42-52); Hemoglobin 11.3 g/dL (14.0-18.0); Immature Granulocytes # (auto) 0.17 K/uL (0.00-0.02); Immature Granulocytes % (auto) 0.8 %; Lymphocytes # (auto) 1.24 K/uL (1.2-3.4); Lymphocytes % (auto) 5.9 %; Mean Corpuscular Hemoglobin 30.9 pg (25-34); Mean Corpuscular Hgb Conc 32.5 g/dL (32-36); Mean Corpuscular Volume 95.1 fL (80-100); Mean Platelet Volume 12.1 fL (7.4-10.4); Monocytes # (auto) 1.57 K/uL (0.11-0.59); Monocytes % (auto) 7.5 %; Neutrophils # (auto) 17.91 K/uL (1.4-6.5); Neutrophils % (auto) 85.8 %; Platelet Count 126 K/uL (130-400); Platelet Estimate Decreased (Normal); RDW Coefficient of Variation 14.3 % (11.5-14.5); RDW Standard Deviation 49.8 fL (36.4-46.3); Red Blood Count 3.66 M/uL (4.7-6.1); White Blood Count 20.91 K/uL (4.8-10.8)
--- NOTE | 2021-09-15 09:43 | XRay Report ---
KUB HISTORY: Acute generalized abdominal pain with distention abdominal distention COMPARISON: CT abdomen and pelvis 09/14/2021 FINDINGS: There is persistent gaseous distention of the large bowel and measures up to 10 cm, stable from comparison. Additionally, there are a few loops of mildly dilated air-filled small bowel measuri ng up to 3.2 cm. Retained contrast within the urinary bladder lumen. No renal calculi. No ureteral c alculi. No pneumoperitoneum or pneumatosis. Degenerative changes of the spine, pelvis and hips. No fr acture. IMPRESSION: Gaseous distended loops of large and small bowel suggest ileus versus distal obstruction. Continued f ollow-up recommended. ACT 112: Negative or not required by law. The above report was generated using voice recognition software. It may contain grammatical, syntax o r spelling errors. Electronically signed by: New Vera M.D. 09/15/2021 9:42 AM
[2021-09-15] MEDS ORDERED: SOD PHOSPHATE/SOD BIPHOSPHATE ENEMA 132 ML BTL PR STA (10:51)
--- NOTE | 2021-09-15 10:59 | Gastrointestinal Consultation ---
Date of Consultation September 15, 2021 Assessment & Plan (1) Abdominal pain: (2) Abdominal distention: distention possibly secondary to constipation or ileus. on abx for possible infection as well right now recs: continue abx NPO insert NG tube now and place to low-intermittent suction fleet enema x2 starting now supportive care, IVFs, replete lytes prn daily KUBs, serial abdominal exams Thank you for allowing me to participate in the care of this patient History of Present Illness Attending Physician: Evelin Arroyo, History of Present Illness 80 yo male with hx CAD, COPD, HTN, HLD, CKD, MIGDALIA here with progressive abdominal distention and decreased appetite. Imaging shows colonic distention without evidence of obstruction or colitis. He notes he has been constipated for the last 2 weeks at home. Also with nausea and bloating. labs reviewed, vss. Allergies Allergy/AdvReac Type Severity Reaction Status Date / Time diltiazem [From Cardizem] Allergy Severe hives Verified 09/14/21 14:36 telmisartan Allergy Unknown Unknown Verified 09/14/21 14:36 Home Medications Medication Instructions Recorded Confirmed Type aspirin 81 mg tablet,delayed 81 mg PO HS 08/04/19 09/14/21 History release atenolol 25 mg tablet 25 mg PO BID #180 tab 12/25/20 09/14/21 Rx celecoxib 200 mg capsule (Celebrex) 200 mg PO BID #180 cap 12/25/20 09/14/21 Rx simvastatin 40 mg tablet 40 mg PO HS #90 tab 01/17/21 09/14/21 Rx mometasone-formoterol HFA 200 2 puff INHALATION BID #3 inhaler 02/19/21 09/14/21 Rx mcg-5 mcg/actuation aerosol inhaler (Dulera) tiotropium bromide 18 mcg capsule See Rx Instructions .ROUTE 07/12/21 09/14/21 Rx with inhalation device (Spiriva .COMPLEX #90 capsule with HandiHaler) albuterol sulfate 90 mcg/actuation 2 puff INHALATION Q6 PRN 09/14/21 09/14/21 History aerosol inhaler (Ventolin HFA) ondansetron 4 mg disintegrating 4 mg PO Q4 PRN 09/14/21 09/14/21 History tablet verapamil 360 mg 24 hr 360 mg PO QAM 09/14/21 09/14/21 History capsule,extended release Patient History Medical History Abdominal pain Anemia Arteriosclerotic cardiovascular disease Asbestosis Benign prostatic disease Chronic kidney disease Chronic obstructive pulmonary disease Chronic respiratory failure with hypoxia Dehydration Emphysematous bleb Hyperlipidemia Hypertension Impaired fasting glucose Obstructive sleep apnea Pleural effusion on right Pleural plaque with presence of asbestos Pulmonary nodule Surgical History H/O colonoscopy History of cataract surgery History of shoulder surgery right shoulder surgery Family History Father Emphysema, unspecified Brother Cancer Mother Glaucoma Cancer skin Sister Renal failure Denies family history of Ovarian cancer Prostate cancer Myocardial infarction Breast cancer Colorectal cancer Social History Smoking Status: Former smoker Tobacco Type: Cigarettes Age Started Using Tobacco: 15; Age Quit Using Tobacco: 49; packs per day: 1; Second Hand Exposure: No; Hx Alcohol Use: Yes Alcohol type: beer Alcohol Intake Frequency Comment: has a couple once a week Hx Substance Use: Yes Preferred Language: [place] Communication Ability: Effective Visual Impairment: No Limitations Hearing Ability: Normal Plate Shop Helper Required: No Beliefs That Will Affect Care: None marital status: Current Living Situation: Spouse and Personal Care Facility Current Living Situation Comment: recently moved from [facility] current occupational status: retired 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 [employer] Other Information That Helps Us Care for You: No Feels Safe at Home: Yes Safety Concerns: Feels Safe At This Time Childhood Exposure to Second-Hand Smoke: Yes Dental Care, Regularly: No Physical Activity Frequency: Does not Exercise Seatbelt Use: always Sunscreen Use: No Assistive Devices: Wheelchair Review of Systems Constitutional: no fever, no chills and no weight loss Eyes: as per Subjective / HPI Ear, Nose, Mouth, Throat: as per Subjective / HPI Respiratory: no dyspnea and no dyspnea on exertion Cardiovascular: no chest pain and no palpitations Gastrointestinal: as per Subjective / HPI Musculoskeletal: no joint pain and no swelling Integumentary: no rash and no lesions Neurologic: no numbness and no paresthesia Psychiatric: no depression and no anxiety Endocrine: no fatigue Hematologic / Lymphatic: no easy bleeding and no easy bruising Physical Exam Constitutional: WD/WN, vitals as above Eyes: EOM intact bilaterally Neck: normal visual inspection Respiratory: normal respiratory effort, lungs clear to auscultation Cardiovascular: RRR, no murmur, no edema Gastrointestinal (Abdomen): Inspection/Auscultation: + abdomen distended (severe); + abdomen abnormal to inspection Percussion/Palpation: abdomen soft; abdomen nontender and no hepatosplenomegaly Musculoskeletal: Extremities: no cyanosis Gait: normal gait Skin: no rashes, warm and dry Neurologic: moves all extremities Psychiatric: A+Ox3, euthymic affect Results & Data ([facility]) Vital Signs (Past 12 Hours) Vital Signs Temp Pulse Resp BP Pulse Ox 09/15/21 07:29 36.6 C 93 H 18 138/73 93 09/14/21 23:38 36.7 C 58 L 20 110/57 L 92 PG Care Time/CCT Total # of Minutes Spent Total Time Spent with Patient: Total time spent is greater than 50% in coordination of care (as documented) at patient's floor/unit and/or counseling patient: Coding Level of Care Code 66851 Initial Inpt Care Lvl 3 Diagnoses Abdominal pain R10.9 Abdominal location: unspecified location Abdominal distention R14.0 (1) Abdominal pain Abdominal location: unspecified location Qualified Code(s): R10.9 - Unspecified abdominal pain
--- NOTE | 2021-09-15 13:38 | XRay Report ---
KUB HISTORY: Status post placement of an enteric tube check ng tube placement COMPARISON: KUB of same day at 9:29 AM FINDINGS: Distal tip of enteric tube projects over the gastric body with side port near the gastroeso phageal junction. Persistent gaseous distention of the large bowel measuring up to approximately 10 m m. The lower abdomen is excluded from the [id number]. A few air-filled loops of small bowel are al so noted. No renal calculi. No ureteral calculi. No pneumoperitoneum or pneumatosis. No degenerative changes of the spine. Multifocal bilateral pulmonary opacities are redemonstrated. IMPRESSION: Status post placement of an enteric tube with distal tip terminating in the gastric body. ACT 112: Negative or not required by law. The above report was generated using voice recognition software. It may contain grammatical, syntax o r spelling errors. Electronically signed by: New Vera M.D. 09/15/2021 1:36 PM
[2021-09-15 14:02] LABS: Cdiff Antigen Positive
[2021-09-15 14:03] LABS: Cdiff Toxin A+B Positive Cdiff Toxin (Negative)
--- NOTE | 2021-09-15 14:26 | Hospitalist Progress Note ---
Date of Service September 15, 2021 Assessment & Plan (1) Clostridium difficile colitis: Plan: started vanc PO, stopped IV Zosyn today. Discussed case with GI. (2) Acute kidney injury superimposed on CKD: Plan: resolved to baseline. Cont IVF while NGT in place and he is NPO (3) Chronic obstructive pulmonary disease: Plan: Pt reports breathing at baseline at present - Continue home oxygen at 4L - Continue home meds (4) Chronic respiratory failure with hypoxia: Plan: Continue chronic oxygen therapy for history of asbestosis. Patient uses 4LPM typically, however, showed me his pulse ox of 84% on his meter. Added continuous pulse ox machine in room to monitor him closely. Incentive spirometry to bedside table with teaching. (5) Hypertension: Plan: At goal, to minimize time off suction will hold BID atenolol and cont with Calan in am. Tylenol switched to IV and scheduled every 8 hours. (6) DVT prophylaxis: Plan: Lovenox DNR Dispo-return to [facility] when medically stable. Evelin Arroyo DO [facility] Hospitalist Admission and Anticipated Discharge Date Admission Date: September 14, 2021 Subjective 80-year-old man presented with leukocytosis and abdominal distention. Recent antibiotic use for an ongoing cough. Empirically placed on Zosyn which was stopped today when C. difficile came back positive. Colonic distention on imaging. NG tube is in place. Surgery and GI have both consulted. Patient is denying any flatus, reports a small bowel movement with enema overnight. Pain is present but managed with Tylenol at this time. Having difficulty changing position secondary to discomfort. Review of Systems Review of Systems: All systems reviewed and negative except as indicated abov e. Physical Exam Physical Exam: CONSTITUTIONAL: obese, vitals as above, generally ill- appearing NAD EYES: normal conjunctivae, no scleral icterus ENT: external ear and nose normal, MMM NECK: trachea midline RESPIRATORY: clear to auscultation bilaterally, no crackles, rales or wheezes, normal respiratory effort CARDIOVASCULAR: regular rate and rhythm, S1 and 2 heard without murmurs, gallops or rubs, no JVD, no peripheral edema GASTROINTESTINAL: high-pitched bowel sounds, slightly distended, nontender MUSCULOSKELETAL: generalized weakness without gross focal deficit. Head is normocephalic and atraumatic SKIN: warm and dry NEUROLOGIC: CN 2-12 grossly intact, normal cognition, normal speech, no tremor PSYCHIATRIC: alert cooperative and oriented to person, place and time. Results & Data Results & Data ([facility]) Vital Signs (Past 12 Hours) Vital Signs Temp Pulse Resp BP Pulse Ox 09/15/21 07:29 36.6 C 93 H 18 138/73 93 Laboratory Results Short CBC 09/15/21 Range/Units 08:17 WBC 20.91 H (4.8-10.8) K/uL Hgb 11.3 L (14.0-18.0) g/dL Hct 34.8 L (42-52) % Plt Count 126 L (130-400) K/uL BMP 09/15/21 08:17 Sodium 138 Potassium 4.1 Chloride 109 H Carbon Dioxide 22 BUN 30 H Creatinine 1.15 Glucose 111 H Calcium 7.7 L Urine 09/14/21 Range/Units 14:40 Urine Color Dark Yellow Urine Appearance Clear (Clear) Urine pH 5.5 (4.5-7.5) Ur Specific [place] > 1.045 H (1.000-1.030) Urine Protein 1+ H (Negative) Urine Glucose (UA) Negative (Negative) Diagnostic Findings KUB X-Ray 09/15/21 07:00 KUB HISTORY: Acute generalized abdominal pain with distention abdominal distention COMPARISON: CT abdomen and pelvis 09/14/2021 FINDINGS: There is persistent gaseous distention of the large bowel and measures up to 10 cm, stable from comparison. Additionally, there are a few loops of mildly dilated air-filled small bowel measuring up to 3.2 cm. Retained contrast within the urinary bladder lumen. No renal calculi. No ureteral calculi. No pneumoperitoneum or pneumatosis. Degenerative changes of the spine, pelvis and hips. No fracture. IMPRESSION: Gaseous distended loops of large and small bowel suggest ileus versus distal obstruction. Continued follow-up recommended. ACT 112: Negative or not required by law. The above report was generated using voice recognition software. It may contain grammatical, syntax or spelling errors. Electronically signed by: New Vera M.D. 09/15/2021 9:42 AM KUB X-Ray 09/15/21 12:41 KUB HISTORY: Status post placement of an enteric tube check ng tube placement COMPARISON: KUB of same day at 9:29 AM FINDINGS: Distal tip of enteric tube projects over the gastric body with side port near the gastroesophageal junction. Persistent gaseous distention of the large bowel measuring up to approximately 10 mm. The lower abdomen is excluded from the [id number]. A few air-filled loops of small bowel are also noted. No renal calculi. No ureteral calculi. No pneumoperitoneum or pneumatosis. No degenerative changes of the spine. Multifocal bilateral pulmonary opacities are redemonstrated. IMPRESSION: Status post placement of an enteric tube with distal tip terminating in the gastric body. ACT 112: Negative or not required by law. The above report was generated using voice recognition software. It may contain grammatical, syntax or spelling errors. Electronically signed by: New Vera M.D. 09/15/2021 1:36 PM Medications Administered Current Inpatient Medications Acetaminophen (Acetaminophen 325 Mg Tab) 650 mg PO Q6H PRN PRN Reason: Fever/pain Stop: 10/15/21 05:56 Albuterol (Albuterol Hfa 8 Gm Inhaler) 2 puffs INH Q6R PRN PRN Reason: Wheezing Stop: 10/14/21 19:10 Atenolol (Atenolol 25 Mg Tablet) 25 mg PO BID OMID Stop: 10/14/21 20:59 Last Admin: 09/15/21 08:08 Dose: 25 mg Documented by: Fluticasone/Vilanterol (Fluticasone/Vilanterol 100/25mcg 14 Puffs/Inhaler) 1 puffs INH DAILY OMID; Protocol Stop: 10/15/21 08:59 Last Admin: 09/15/21 08:07 Dose: 1 puffs Documented by: Piperacillin Sod/Tazobactam (Sod 3.375 gm/ Dextrose) 115 mls @ 28.75 mls/hr IV Q8H OMID; Protocol Stop: 09/16/21 19:59 Last Admin: 09/15/21 12:09 Dose: 28.8 mls/hr Documented by: Sodium Chloride (Nss) 1,000 mls @ 125 mls/hr IV .Q8H OMID Stop: 10/14/21 22:14 Last Admin: 09/15/21 14:19 Dose: 125 mls/hr Documented by: Miscellaneous Information (Piperacill/Tazobac Consult Active) 1 ea N/A UD PRN PRN Reason: Consult Stop: 10/14/21 19:29 Raspberry (Raspberry Syrup 5 Ml Udp) 5 ml PO Q6 COUNTS INCLUDE 234 BEDS AT THE [facility] Stop: 09/25/21 17:59 Umeclidinium Vowinckel (Umeclidinium Vowinckel 62.5mcg/Blister 7 Puffs/Inhaler) 1 puffs INH DAILY COUNTS INCLUDE 234 BEDS AT THE [facility]; Protocol Stop: 10/15/21 08:59 Last Admin: 09/15/21 08:08 Dose: 1 puffs Documented by: Vancomycin HCl (Vancomycin Hcl 125 Mg/2.5ml Soln) 125 mg PO Q6 COUNTS INCLUDE 234 BEDS AT THE [facility] Stop: 09/25/21 17:59 Verapamil HCl (Verapamil Hcl 180 Mg Tabcr) 360 mg PO QAM COUNTS INCLUDE 234 BEDS AT THE [facility] Stop: 10/15/21 08:59 Last Admin: 09/15/21 08:08 Dose: 360 mg Documented by:
[2021-09-15] MEDS: VANCOMYCIN HCL 125 MG/2.5ML SOLN PO SCH ×2 (17:37→23:25)
[2021-09-15] MEDS: RASPBERRY SYRUP 5 ML UDP PO SCH ×2 (17:37→23:25)
[2021-09-15] MEDS ORDERED: MELATONIN 3 MG TAB PO PRN (21:25)
[2021-09-15] MEDS ORDERED: KETOROLAC TROMETHAMINE 15 MG/ML VIAL IV ONE (21:25)
[2021-09-15] MEDS: ACETAMINOPHEN 1000 MG/100 ML IV IV SCH (23:26)
[2021-09-16] MEDS: VANCOMYCIN HCL 125 MG/2.5ML SOLN PO SCH (05:34)
[2021-09-16] MEDS: RASPBERRY SYRUP 5 ML UDP PO SCH ×4 (05:34→23:00)
[2021-09-16] MEDS: SODIUM CHLORIDE 0.9% 1,000 ML IV SCH ×3 (05:36→22:59)
--- NOTE | 2021-09-16 06:24 | Surgery Progress Note ---
Date of Service September 16, 2021 Assessment & Plan (1) Pseudoobstruction of colon: Plan: Patient is not showing much progress Abdomen significantly distended I will discussed with the GI team possibility of decompression with rectal tube placement This will be short of him worsening requiring operation and colostomy He would also benefit from PPN as his intake has been poor And proteins are low-we will leave this to the medical team \ Admission and Anticipated Discharge Date Admission Date: September 14, 2021 Subjective Patient's vital signs are stable He does not have much pain His abdomen is significantly distended Minimal flatus and bowel movement Review of Systems Review of Systems: All systems reviewed & are unremarkable except as noted in HPI & below Physical Exam Physical Exam: Patient is awake in no distress Constitutional: no acute distress Eyes: + anicteric sclerae Respiratory: no respiratory distress Cardiovascular: Rate/Rhythm: regular rate Gastrointestinal (Abdomen): Inspection/Auscultation: + abdomen distended Significant abdominal distention No significant tenderness tympanitic Musculoskeletal: Head/Neck/Chest: head atraumatic Skin: no rashes, warm and dry Neurologic: awake Psychiatric: Orientation: alert Results & Data ([facility]) Vital Signs (Past 12 Hours) Vital Signs Temp Pulse Resp BP Pulse Ox Pulse Ox 09/15/21 23:33 36.6 C 62 18 126/71 91 09/15/21 20:15 90 PG Care Time/CCT Total # of Minutes Spent Total Time Spent with Patient: Total time spent is greater than 50% in coordination of care (as documented) at patient's floor/unit and/or counseling patient: Coding Level of Care Code 84229 Inpt Consult Level 3 Diagnoses Pseudoobstruction of colon K59.81
[2021-09-16 08:25] LABS: BUN Creatinine Ratio 27.3 (10-20); Calcium 7.8 mg/dl (8.5-10.1); Creatinine Clr Calc Pharmacy 48.5 ml/min; Est GFR (African American) 59.9 ml/min; Est GFR (Non-African American) 51.7 ml/min
--- NOTE | 2021-09-16 09:26 | Gastroenterology Progress Note ---
Date of Service September 16, 2021 Assessment & Plan (1) Abdominal pain: (2) Abdominal distention: (3) Clostridium difficile colitis: Plan: Discussed with pharmacist. Will plan to transition to Vancomycin enemas in addition to higher dose PO Vancomycin. Was also recommended to start Flagyl 500 mg IV TID due to megacolon. NPO and continue NG to low-intermittent suction Supportive care, IVFs, replete lytes prn daily KUBs, serial abdominal exams Admission and Anticipated Discharge Date Admission Date: September 14, 2021 Subjective Patient with ongoing NG suction with feculent output. Reports intermittent abdominal pain rated 5/10. +nausea. No bm or flatus. Surgery on board. Has been prescribed PO Vanco. Review of Systems Constitutional: no fever and no chills Gastrointestinal: as per Subjective / HPI Physical Exam Constitutional: WD/WN, vitals as above ENMT: NG intact left nare Respiratory: normal respiratory effort, lungs clear to auscultation Cardiovascular: Rate/Rhythm: regular rate and regular rhythm Gastrointestinal (Abdomen): Inspection/Auscultation: + abdomen distended and + hypoactive bowel sounds Percussion/Palpation: + abdomen tender and + abdomen firm Psychiatric: A+Ox3, euthymic affect Results & Data Results & Data ([facility]) Vital Signs (Past 12 Hours) Vital Signs Temp Pulse Resp BP Pulse Ox 09/16/21 08:04 36.8 C 67 16 123/62 93 09/15/21 23:33 36.6 C 62 18 126/71 91 PG Care Time/CCT Total # of Minutes Spent Total Time Spent with Patient: Total time spent is greater than 50% in coordination of care (as documented) at patient's floor/unit and/or counseling patient: Coding Level of Care Code 95206 Subseq Hosp Care Lvl 3 Diagnoses Abdominal pain R10.9 Abdominal location: unspecified location Abdominal distention R14.0 Clostridium difficile colitis A04.72 (1) Abdominal pain Abdominal location: unspecified location Qualified Code(s): R10.9 - Unspecified abdominal pain
[2021-09-16 10:04] LABS: Hematocrit (blood only) 36.9 % (42-52); Hemoglobin 12.3 g/dL (14.0-18.0); Mean Corpuscular Hemoglobin 31.4 pg (25-34); Mean Corpuscular Hgb Conc 33.3 g/dL (32-36); Mean Corpuscular Volume 94.1 fL (80-100); Mean Platelet Volume 12.2 fL (7.4-10.4); Platelet Count 120 K/uL (130-400); RDW Coefficient of Variation 14.9 % (11.5-14.5); RDW Standard Deviation 50.7 fL (36.4-46.3); Red Blood Count 3.92 M/uL (4.7-6.1); White Blood Count 32.76 K/uL (4.8-10.8)
[2021-09-16 10:08] LABS: ANC (manual) 31.61 K/uL (1.4-6.5); Echinocytes 1+; Monocytes # (manual) 1.15 K/uL (0.11-0.59); Monocytes % (manual) 3.5 %; Neutrophils # (manual) 31.61 K/uL (1.4-6.5); Neutrophils % (manual) 96.5 %
[2021-09-16] MEDS: ACETAMINOPHEN 1000 MG/100 ML IV IV SCH ×2 (11:03→17:06)
[2021-09-16] MEDS: ENOXAPARIN INJ 40 MG/0.4 ML SYR SQ SCH (11:05)
[2021-09-16] MEDS: FLUTICASONE/VILANTEROL 100/25MCG 14 PUFFS/INHALER INH SCH (11:07)
[2021-09-16] MEDS: UMECLIDINIUM BROMIDE 62.5MCG/BLISTER 7 PUFFS/INHALER INH SCH (11:07)
[2021-09-16] MEDS: VANCOMYCIN HCL 500 MG/10 ML SOLN PO SCH ×4 (11:08→23:00)
[2021-09-16] MEDS: metroNIDAZOLE 500 MG/100 ML BAG IV SCH ×2 (11:09→17:06)
[2021-09-16] MEDS: VERAPAMIL HCL 180 MG TABCR PO SCH (11:12)
[2021-09-16] MEDS: VANCOMYCIN HCL 500 MG/100 ML ENEMA PR SCH ×3 (11:39→22:59)
--- NOTE | 2021-09-16 14:26 | Hospitalist Progress Note ---
Date of Service September 16, 2021 Assessment & Plan (1) Clostridium difficile colitis: (2) Acute kidney injury superimposed on CKD: (3) Chronic obstructive pulmonary disease: (4) Chronic respiratory failure with hypoxia: (5) Hypertension: (6) DVT prophylaxis: Plan: This is an 80 y/o female with a PMH of CAD, chronic respiratory failure with hypoxemia due to asbestosis and COPD (on 2-4 L of oxygen at baseline), HTN, HLD, CKD, and MIGDALIA who presented to the ED with progressive abdominal distention and loss of appetite over the past 2-[address] a/p: Prominent colonic gas without evidence of small bowel obstruction or volvulus. Prominence of the appendix, new from prior exam. Clinical correlation is recommended for acute appendicitis.3. Infrarenal abdominal aortic aneurysm measures 28 mm in diameter, slightly increased from prior exam where it measured 24 mm in diameter. KUB: 09/15: Gaseous distended loops of large and small bowel suggest ileus versus distal obstruction. Continued follow-up recommended BC NGTD Cdiff positive C Difficile Colitis Pseudo obstruction wbc 20.91-->32.76k PO vanco to be increased, vanco enemas added along with IV flagyl appreciate GI and general surgery input NGT with LIS will consult pharmacy and collision worker for PPN to start tomorrow daily KUB NPO continue NSS 125cc/hr A/C CKD-3 resolved monitor renal function Chronic respiratory failure with hypoxemia due to COPD/Asbestosis ( 2-4L of O2 at baseline) continue home inhalers stable HTN atenolol on hold and continue verapamil bp stable MIGDALIA 4L of O2 at HS DVT ppx: Lovenox Dispo: remains admitted, not medically stable for D/C DNR/DNI PCP: Louis Nice Pt was seen and examined in collaboration with Dr. Finney, please see addendum Admission and Anticipated Discharge Date Admission Date: September 14, 2021 Supervising Physician Co-Signing Physician Notes Attending addendum The patient was seen and examined in medical floor He complains to have some abdominal discomfort without any pain Denies any nausea and or vomiting Has not been passing any gas and/or bowel On examination No apparent distress at rest Hemodynamically stable Abdomenmildly distended, soft, mildly tender all over, bowel sounds sluggish Extremities-no edema RN TRIAGE-alert, awake and oriented x3. Generally weak His labs, imaging studies reviewed Has colonic distention with possible megacolon with C. difficile infection Appreciate GI and surgery input and recommendation Agree with assessment and plan as outlined above by Sunita Finney Subjective Patient was seen and examined in room 321-1. Follow up pseudoobstruction, cdiff colitis. Continues to have NGT in place. Complains of nausea and vomiting. Continues to have abd pain. Denies f/c/s, chest pain, sob. "I was told its not getting better, but I've filled two canisters." Review of Systems Review of Systems: All systems reviewed & are unremarkable except as noted in HPI & below Physical Exam Physical Exam: Gen: Elderly, male, chronically ill-appearing, NAD, A&O x3 HEENT: NG tube in place, normocephalic, atraumatic, conjunctivae moist, sclerae anicteric, mucous membranes moist. Lung: Clear to Auscultation bilaterally, no wheezes/rales/rhonchi Heart: Regular rate, regular rhythm, no murmurs, rubs, or gallops Abdomen: Distended, absent bowel sounds, firm to palpation, NT Extremities: No edema Skin: Warm, no rash, negative turgor. Results & Data Results & Data ([facility]) Vital Signs (Past 12 Hours) Vital Signs Temp Pulse Resp BP Pulse Ox Pulse Ox 09/16/21 08:04 36.8 C 67 16 123/62 93 09/16/21 07:30 95 Laboratory Results Short CBC 09/16/21 09/16/21 Range/Units 07:29 09:24 WBC Cancelled 32.76 H* Hgb Cancelled 12.3 L Hct Cancelled 36.9 L Plt Count Cancelled 120 L BMP 09/16/21 07:29 Sodium 142 Potassium 4.0 Chloride 112 H Carbon Dioxide 20 L BUN 35 H Creatinine 1.29 Glucose 102 H Calcium 7.8 L Medications Administered Current Inpatient Medications Acetaminophen (Acetaminophen 1000 Mg/100 Ml Iv) 1,000 mg IV Q8H [facility] Stop: 09/19/21 00:00 Last Admin: 09/16/21 11:03 Dose: 1,000 mg Documented by: Albuterol (Albuterol Hfa 8 Gm Inhaler) 2 puffs INH Q6R PRN PRN Reason: Wheezing Stop: 10/14/21 19:10 Atenolol (Atenolol 25 Mg Tablet) 25 mg PO BID [facility] Stop: 10/14/21 20:59 Last Admin: 09/15/21 08:08 Dose: 25 mg Documented by: Enoxaparin Sodium (Enoxaparin Inj 40 Mg/0.4 Ml Syr) 40 mg SQ QAM [facility] Stop: 10/16/21 08:59 Last Admin: 09/16/21 11:05 Dose: 40 mg Documented by: Fluticasone/Vilanterol (Fluticasone/Vilanterol 100/25mcg 14 Puffs/Inhaler) 1 puffs INH DAILY [facility]; Protocol Stop: 10/15/21 08:59 Last Admin: 09/16/21 11:07 Dose: 1 puffs Documented by: Sodium Chloride (Nss) 1,000 mls @ 125 mls/hr IV .Q8H [facility] Stop: 10/14/21 22:14 Last Admin: 09/16/21 05:36 Dose: 125 mls/hr Documented by: Metronidazole (Flagyl) 500 mg in 100 mls @ 100 mls/hr IV Q8H [facility] Stop: 09/26/21 09:59 Last Infusion: 09/16/21 12:21 Dose: Infused Documented by: Melatonin (Melatonin 3 Mg Tab) 3 mg PO HS PRN PRN Reason: Sleep Stop: 10/15/21 21:24 Last Admin: 09/15/21 23:25 Dose: 3 mg Documented by: Miscellaneous Information (Tpn/Ppn Consult Pharmacy) 1 ea N/A NOW STA Stop: 09/16/21 14:23 Raspberry (Raspberry Syrup 5 Ml Udp) 5 ml PO Q6H [facility] Stop: 09/26/21 09:59 Last Admin: 09/16/21 11:09 Dose: 5 ml Documented by: Umeclidinium [place] (Umeclidinium [place] 62.5mcg/Blister 7 Puffs/Inhaler) 1 puffs INH DAILY [facility]; Protocol Stop: 10/15/21 08:59 Last Admin: 09/16/21 11:07 Dose: 1 puffs Documented by: Vancomycin HCl (Vancomycin Hcl 500 Mg/10 Ml Soln) 500 mg PO Q6H [facility] Stop: 09/26/21 09:59 Last Admin: 09/16/21 11:36 Dose: 500 mg Documented by: Vancomycin HCl (Vancomycin Hcl 500 Mg/100 Ml Enema) [address] Q6H [facility] Stop: 09/26/21 09:59 Last Admin: 09/16/21 11:39 Dose: 500 mg Documented by: Verapamil HCl (Verapamil Hcl 180 Mg Tabcr) 360 mg PO QAM [facility] Stop: 10/15/21 08:59 Last Admin: 09/16/21 11:12 Dose: 360 mg Documented by:
[2021-09-16] MEDS ORDERED: TPN/PPN CONSULT PHARMACY PRN (14:31)
[2021-09-16] MEDS ORDERED: DEXTROSE 10% 1,000 ML IV PRN (14:32)
[2021-09-17] MEDS: ACETAMINOPHEN 1000 MG/100 ML IV IV SCH ×2 (00:47→09:07)
[2021-09-17] MEDS: metroNIDAZOLE 500 MG/100 ML BAG IV SCH ×3 (02:14→17:30)
[2021-09-17] MEDS: VANCOMYCIN HCL 500 MG/100 ML ENEMA PR SCH ×2 (04:09→13:41)
[2021-09-17] MEDS: VANCOMYCIN HCL 500 MG/10 ML SOLN PO SCH ×4 (04:09→22:37)
[2021-09-17] MEDS: RASPBERRY SYRUP 5 ML UDP PO SCH ×4 (04:09→22:35)
--- NOTE | 2021-09-17 06:11 | Surgery Progress Note ---
Date of Service September 17, 2021 Assessment & Plan (1) Clostridium difficile colitis: Plan: I am concerned he is becoming more distended We will check a KUB early There may be increased risk here for perforation There is a possibility of surgical intervention later today He would definitely either have an ileostomy or colostomy We will try not to perform subtotal colectomy if possible unless there is evidence of necrosis Admission and Anticipated Discharge Date Admission Date: September 14, 2021 Subjective Patient is more anxious He apparently did have a small bowel movement I do believe he has more discomfort and is significantly distended Review of Systems Review of Systems: All systems reviewed & are unremarkable except as noted in HPI & below Physical Exam Physical Exam: Patient is awake seems to be more anxious Constitutional: + acute distress Eyes: + anicteric sclerae Respiratory: no respiratory distress Cardiovascular: Rate/Rhythm: regular rate Gastrointestinal (Abdomen): Inspection/Auscultation: + abdomen distended Significant abdominal distention Abdomen is very firm tympanitic Musculoskeletal: Head/Neck/Chest: head atraumatic Skin: no rashes, warm and dry Neurologic: awake Psychiatric: Orientation: alert Results & Data ([facility]) Vital Signs (Past 12 Hours) Vital Signs Temp Pulse Resp BP Pulse Ox 09/16/21 23:48 36.8 C 78 24 121/70 94 PG Care Time/CCT Total # of Minutes Spent Total Time Spent with Patient: Total time spent is greater than 50% in coordination of care (as documented) at patient's floor/unit and/or counseling patient: Coding Level of Care Code 21101 Inpt Consult Level 4 Diagnoses Clostridium difficile colitis A04.72
--- NOTE | 2021-09-17 07:27 | XRay Report ---
KUB CLINICAL HISTORY: Follow up obstruction. COMPARISON STUDY: CT of the abdomen and pelvis September 14, 2021. KUB September 15, 2021. FINDINGS: Tip of nasogastric tube is within the proximal body of the stomach. Sidehole is at the [place] roesophageal junction. The tube could be advanced an additional 3 cm. Persistent gaseous colonic dist ention is noted. The hepatic flexure measures 12.8 cm in caliber. This has mildly increased since julia or exam. There is mild gaseous distention of the small bowel. This is similar to prior exam. IMPRESSION: 1. Tip of nasogastric tube within the proximal body of the stomach with sidehole at the gastroesophag eal junction. The tube could be advanced an additional 3 cm. 2. Slight increase in gaseous distention of the colon. Mild small bowel dilatation. The findings coul d reflect an ileus or distal obstruction. Continued follow-up recommended. ACT 112: Negative or not required by law. Electronically signed by: Luis Alberto Echevarria M.D. 09/17/2021 7:26 AM
[2021-09-17 09:00] LABS: Hematocrit (blood only) 35.3 % (42-52); Hemoglobin 11.7 g/dL (14.0-18.0); Mean Corpuscular Hemoglobin 31.4 pg (25-34); Mean Corpuscular Hgb Conc 33.1 g/dL (32-36); Mean Corpuscular Volume 94.6 fL (80-100); Mean Platelet Volume 12.7 fL (7.4-10.4); Platelet Count 113 K/uL (130-400); RDW Coefficient of Variation 15.2 % (11.5-14.5); RDW Standard Deviation 52.7 fL (36.4-46.3); Red Blood Count 3.73 M/uL (4.7-6.1); White Blood Count 43.96 K/uL (4.8-10.8)
[2021-09-17 09:01] LABS: ALC (manual) 0.35 K/uL (1.2-3.4); ANC (manual) 42.51 K/uL (1.4-6.5); Echinocytes 2+; Lymphocytes # (manual) 0.35 K/uL (1.2-3.4); Lymphocytes % (manual) 0.8 %; Monocytes % (manual) 2.5 %; Neutrophils # (manual) 42.51 K/uL (1.4-6.5); Neutrophils % (manual) 96.7 %
[2021-09-17] MEDS: FLUTICASONE/VILANTEROL 100/25MCG 14 PUFFS/INHALER INH SCH (09:06)
[2021-09-17] MEDS: UMECLIDINIUM BROMIDE 62.5MCG/BLISTER 7 PUFFS/INHALER INH SCH (09:06)
[2021-09-17] MEDS: ENOXAPARIN INJ 40 MG/0.4 ML SYR SQ SCH (09:06)
[2021-09-17] MEDS: VERAPAMIL HCL 180 MG TABCR PO SCH (09:07)
[2021-09-17] MEDS ORDERED: ROCURONIUM BROMIDE 10 MG/ML 5 ML VIAL IV ONE ×2 (09:10→12:01)
[2021-09-17] MEDS ORDERED: LARYING-O-JET KIT (LTA) ONE (09:10)
[2021-09-17] MEDS ORDERED: fentaNYL citrate 100 MCG/2 ML VIAL ONE ×2 (09:10)
[2021-09-17] MEDS ORDERED: PHENYLEPHRINE 100MCG/ML 5ML SYR ONE (09:10)
[2021-09-17] MEDS ORDERED: PROPOFOL IV EMULSION 10 MG/ML 20 ML VIAL IV ONE (09:10)
[2021-09-17] MEDS ORDERED: NEOSTIGMINE METHYLSULFATE 1 MG/ML 10ML VIAL ONE (09:10)
[2021-09-17] MEDS ORDERED: GLYCOPYRROLATE 0.2 MG/ML VIAL ONE (09:10)
[2021-09-17] MEDS ORDERED: ePHEDrine sulfate 50 MG/ML SYR ONE (09:10)
[2021-09-17] MEDS ORDERED: LIDOCAINE 2% 2 ML VIAL/AMP(20MG/ML) INFIL ONE (09:10)
[2021-09-17] MEDS ORDERED: SUCCINYLCHOLINE CHLORIDE 20 MG/ML 10 ML VIAL IV ONE (09:10)
[2021-09-17 09:24] LABS: Albumin Level 1.7 gm/dl (3.4-5.0); BUN Creatinine Ratio 32.6 (10-20); Calcium 7.8 mg/dl (8.5-10.1); Creatinine Clr Calc Pharmacy 46.4 ml/min; Est GFR (African American) 56.7 ml/min; Est GFR (Non-African American) 48.9 ml/min; Magnesium 2.4 mg/dl (1.8-2.4); Potassium 3.7 mmol/L (3.5-5.1)
[2021-09-17] MEDS ORDERED: ALBUMIN HUMAN 5% 12.5 GM/250 ML VIAL IV ONE ×2 (09:26→11:52)
[2021-09-17 09:27] LABS: Albumin Globulin Ratio 0.4 (0.9-2); Globulin 4.4 gm/dl (2.5-4.0); Phosphorus 2.8 mg/dl (2.5-4.9); Total Protein 6.1 gm/dl (6.4-8.2)
[2021-09-17] MEDS ORDERED: PHENYLEPHRINE HCL 10 MG/ML VIAL ONE (09:28)
--- NOTE | 2021-09-17 10:04 | Anesthesiology Consultation ---
Date of Service September 17, 2021 Assessment & Plan Chart Review Chart Review: Acceptable Risk for Surgery and Patient NOT seen in Pre Admission Testing Consults Requested none ASA [id number] Proposed Anesthesia Anesthesia Type: General Anesthesia Line Insertion: Arterial line History Surgery Operation Date: 09/17/21 09:00 Proposed Procedures p Exploratory Laparotomy Possible Bowel Resection - Alverto Chau MD, FACS Height/Weight Height: 5 ft 7 in Weight: 91.8 kg Allergies Allergy/AdvReac Type Severity Reaction Status Date / Time diltiazem [From Cardizem] Allergy Severe hives Verified 09/14/21 14:36 telmisartan Allergy Unknown Unknown Verified 09/14/21 14:36 Medications Home Medications Medication Instructions Recorded Confirmed Last Taken aspirin 81 mg tablet,delayed 81 mg PO HS 08/04/19 09/14/21 11/06/20 release atenolol 25 mg tablet 25 mg PO BID #180 tab 12/25/20 09/14/21 Unknown celecoxib 200 mg capsule (Celebrex) 200 mg PO BID #180 cap 12/25/20 09/14/21 Unknown simvastatin 40 mg tablet 40 mg PO HS #90 tab 01/17/21 09/14/21 Unknown mometasone-formoterol HFA 200 2 puff INHALATION BID #3 inhaler 02/19/21 09/14/21 Unknown mcg-5 mcg/actuation aerosol inhaler (Dulera) tiotropium bromide 18 mcg capsule See Rx Instructions .ROUTE 07/12/21 09/14/21 Unknown with inhalation device (Spiriva .COMPLEX #90 capsule with HandiHaler) albuterol sulfate 90 mcg/actuation 2 puff INHALATION Q6 PRN 09/14/21 09/14/21 Unknown aerosol inhaler (Ventolin HFA) ondansetron 4 mg disintegrating 4 mg PO Q4 PRN 09/14/21 09/14/21 Unknown tablet verapamil 360 mg 24 hr 360 mg PO QAM 09/14/21 09/14/21 Unknown capsule,extended release Active Medications Generic Name Dose Route Start Last Admin Trade Name Freq PRN Reason Stop Dose Admin Acetaminophen 1,000 mg 09/16/21 00:00 09/17/21 09:07 Acetaminophen 1000 Mg/100 Ml Iv IV 09/19/21 00:00 1,000 mg Q8H [facility] Administration Atenolol 25 mg 09/14/21 21:00 09/15/21 08:08 Atenolol 25 Mg Tablet PO 10/14/21 20:59 25 mg BID OMID Administration Enoxaparin Sodium 40 mg 09/16/21 09:00 09/17/21 09:06 Enoxaparin Inj 40 Mg/0.4 Ml Syr SQ 10/16/21 08:59 Not Given QAM [facility] Fluticasone/Vilanterol 1 puffs 09/15/21 09:00 09/17/21 09:06 Fluticasone/Vilanterol 100/25mcg 14 Puffs/Inhaler INH 10/15/21 08:59 1 puffs DAILY [facility] Administration Protocol Sodium Chloride 1,000 mls @ 125 mls/hr 09/14/21 22:16 09/16/21 22:59 Nss IV 10/14/21 22:14 125 mls/hr .Q8H [facility] Administration Metronidazole 500 mg in 100 mls @ 100 mls/hr 09/16/21 10:00 09/17/21 03:15 Flagyl IV 09/26/21 09:59 Infused Q8H [facility] Infusion Melatonin 3 mg 09/15/21 21:25 09/15/21 23:25 Melatonin 3 Mg Tab PO 10/15/21 21:24 3 mg HS PRN Administration Sleep Raspberry 5 ml 09/16/21 10:00 09/17/21 04:09 Raspberry Syrup 5 Ml Udp PO 09/26/21 09:59 5 ml Q6H [facility] Administration Umeclidinium [place] 1 puffs 09/15/21 09:00 09/17/21 09:06 Umeclidinium [place] 62.5mcg/Blister 7 Puffs/Inhaler INH 10/15/21 08:59 1 puffs DAILY [facility] Administration Protocol Vancomycin HCl 500 mg 09/16/21 10:00 09/17/21 04:09 Vancomycin Hcl 500 Mg/10 Ml Soln PO 09/26/21 09:59 500 mg Q6H [facility] Administration Vancomycin HCl 500 mg 09/16/21 10:00 09/17/21 04:09 Vancomycin Hcl 500 Mg/100 Ml Enema [place] 09/26/21 09:59 500 mg Q6H [facility] Administration Verapamil HCl 360 mg 09/15/21 09:00 09/17/21 09:07 Verapamil Hcl 180 Mg Tabcr PO 10/15/21 08:59 Not Given QAM [facility] NPO Date Last Intake of Fluids: 09/17/21 Time Last Intake of Fluids: 08:45 Last Intake of Fluids Comment: Ice chips. NG to low intermittent suction Date Last Intake of Solids: 09/10/21 Past Medical History Medical History Abdominal pain Anemia Arteriosclerotic cardiovascular disease Asbestosis Benign prostatic disease Chronic kidney disease Chronic obstructive pulmonary disease Chronic respiratory failure with hypoxia Dehydration Emphysematous bleb Hyperlipidemia Hypertension Impaired fasting glucose Obstructive sleep apnea Pleural effusion on right Pleural plaque with presence of asbestos Pulmonary nodule Exercise / Class Metabolic Activity III < 4 Walking/Shop/Light housework Past Family History Family History Father Emphysema, unspecified Brother Cancer Mother Glaucoma Cancer skin Sister Renal failure Denies family history of Ovarian cancer Prostate cancer Myocardial infarction Breast cancer Colorectal cancer Past Surgical History Surgical History H/O colonoscopy History of cataract surgery History of shoulder surgery right shoulder surgery Past Anesthesia History No Hx of Anesthesia Complications and No Family Hx of Anesthesia Complications History of PONV No Hx of PONV and No Hx of Motion Sickness Social History Smoking Status: Former smoker Hx Alcohol Use: Yes Alcohol type: beer alcohol intake frequency: holidays/special occasions only Hx Substance Use: Yes substance use type: does not use Physical Exam Vital Signs Last Vital Signs Temp 37 C 09/17/21 09:25 Pulse 103 H 09/17/21 09:25 Resp 24 09/17/21 09:25 BP 114/61 09/17/21 09:25 Pulse Ox 97 09/17/21 09:25 Testing Laboratory Results 09/17/21 07:52 09/17/21 07:52 Urine Color Dark Yellow 09/14/21 14:40 Urine Appearance Clear (Clear) 09/14/21 14:40 Urine pH 5.5 (4.5-7.5) 09/14/21 14:40 Ur Specific [place] > 1.045 (1.000-1.030) H 09/14/21 14:40 Urine Protein 1+ (Negative) H 09/14/21 14:40 Urine Glucose (UA) Negative (Negative) 09/14/21 14:40 Urine Ketones 1+ (Negative) H 09/14/21 14:40 Urine Nitrite Negative (Negative) 09/14/21 14:40 Ur Leukocyte Esterase Negative (Negative) 09/14/21 14:40 Urine WBC (Auto) 1-5 /hpf (0-5) 09/14/21 14:40 Urine RBC (Auto) 5-10 /hpf (0-4) H 09/14/21 14:40 U Hyaline Cast (Auto) 5-10 /lpf (0-5) H 09/14/21 14:40 U Epithel Cells (Auto) 10-20 /lpf (0-5) H 09/14/21 14:40 Urine Bacteria (Auto) Negative (Negative) 09/14/21 14:40 09/14/21 17:37 Aerobic Blood Culture - Preliminary Blood No growth in Aerobic bottle after 48 hours. Anaerobic Blood Culture - Preliminary No growth in Anaerobic bottle after 48 hours. 09/14/21 17:37 Aerobic Blood Culture - Preliminary Blood No growth in Aerobic bottle after 48 hours. Anaerobic Blood Culture - Preliminary No growth in Anaerobic bottle after 48 hours. Electrocardiogram Date: 09/17/21 Findings: + LBBB (incomplete LBBB) and + pertinent finding (undetermined rhythm @ 89) Chest X-Ray Date: 09/14/21 Findings: + atelectasis, + infiltrate, + pleural effusion (? B/L pleural effusions) and + other (multi focal airspace opacities may represent atelectasis, pneumonia or aspiration)
[2021-09-17] MEDS ORDERED: SODIUM CHLORIDE 0.9% 1000ML 1,000 ML IV SCH (10:15)
--- NOTE | 2021-09-17 10:40 | Hospitalist Progress Note ---
Date of Service September 17, 2021 Assessment & Plan (1) Clostridium difficile colitis: (2) Acute kidney injury superimposed on CKD: (3) Chronic obstructive pulmonary disease: (4) Chronic respiratory failure with hypoxia: (5) Hypertension: (6) DVT prophylaxis: Plan: This is an 80 y/o female with a PMH of CAD, chronic respiratory failure with hypoxemia due to asbestosis and COPD (on 2-4 L of oxygen at baseline), HTN, HLD, CKD, and MIGDALIA who presented to the ED with progressive abdominal distention and loss of appetite over the past 2-[address] a/p: Prominent colonic gas without evidence of small bowel obstruction or volvulus. Prominence of the appendix, new from prior exam. Clinical correlation is recommended for acute appendicitis.3. Infrarenal abdominal aortic aneurysm measures 28 mm in diameter, slightly increased from prior exam where it measured 24 mm in diameter. KUB: 09/15: Gaseous distended loops of large and small bowel suggest ileus versus distal obstruction. Continued follow-up recommended KUB 09/17: light increase in gaseous distention of the colon. Mild small bowel dilatation. The findings could reflect an ileus or distal obstruction BC NGTD Cdiff positive C Difficile Colitis Pseudo obstruction wbc 20.91-->32.76k--43.6k PO vanco increased, vanco enemas added along with IV flagyl Plan to go to OR today to ex lap and possible bowel resection NGT with LIS pharmacy and phlebotomy services technician consulted for PPN to start post op, will stop fluid when PPN starts continue NPO Irregular heart rhythm on exam EKG reveals undetermined rhythm give pt condition and hx of resp failure high risk for afib would recommend telemetry monitoring post op A/C CKD-3 bun 44/cr 1.35 today monitor daily labs continue IVF Hypoalbuminemia in setting of acute illness pharmacy and phlebotomy services technician on board for PPN Chronic respiratory failure with hypoxemia due to COPD/Asbestosis ( 2-4L of O2 at baseline) continue home inhalers stable HTN atenolol on hold and continue verapamil bp stable MIGDALIA 4L of O2 at HS DVT ppx: Lovenox - will place on hold 2/2 to surgical intervention Dispo: remains admitted, not medically stable for D/C DNR/DNI PCP: Louis Nice Pt was seen and examined in collaboration with Dr. Finney, please see addendum Admission and Anticipated Discharge Date Admission Date: September 14, 2021 Supervising Physician Co-Signing Physician Notes Attending addendum: The patient was seen and examined in ICU He is a status post expiratory laparotomy, subtotal colectomy and establishment of colostomy Remains intubated and sedated On examination Hemodynamically stable Sedated on mechanical vent Chest-decreased breath sounds bilaterally otherwise clear Heart-S1-S2, regular Abdomen-soft, status post surgery with colostomy bag in situ Extremities-trace edema bilaterally His labs and imaging studies reviewed Toxic megacolon secondary to C. difficile colitis infection status post laparotomy with subtotal colectomy and creation of colostomy Agree with assessment and plan as outlined above by Sunita Finney Subjective Patient was seen and examined in room 321-1. Follow up pseudoobstruction, cdiff colitis. "I am not doing too well this morning." "They are going to operate on me." He has increased distention to abdomen and significant abdominal pain. He continues to have nausea and vomiting. His NGT is in place. He denies chest pain, shortness of breath, cough, hemoptysis, lightheadedness or dizziness. Huang catheter is in place. Review of Systems Review of Systems: All systems reviewed & are unremarkable except as noted in HPI & below Physical Exam Physical Exam: Gen: Elderly, male, chronically ill-appearing, NAD, A&O x3 HEENT: NG tube in place, normocephalic, atraumatic, conjunctivae moist, sclerae anicteric, mucous membranes moist. Lung: Clear to Auscultation bilaterally, no wheezes/rales/rhonchi Heart: Regular rate, IRRrhythm, no murmurs, rubs, or gallops Abdomen: Significant Distended abd, absent bowel sounds, firm to palpation, Tender to palpation Extremities: trace lower ext edema Skin: Warm, no rash, negative turgor. Results & Data Results & Data ([facility]) Vital Signs (Past 12 Hours) Vital Signs Temp Pulse Pulse Resp BP Pulse Ox 09/17/21 09:25 37 C 103 H 24 114/61 97 09/17/21 07:49 36.4 C L 83 18 116/73 92 09/16/21 23:48 36.8 C 78 24 121/70 94 Laboratory Results Short CBC 09/17/21 09/17/21 Range/Units 07:24 07:52 WBC Cancelled 43.96 H* D Hgb Cancelled 11.7 L Hct Cancelled 35.3 L Plt Count Cancelled 113 L BMP 09/17/21 07:52 Sodium 145 Potassium 3.7 Chloride 116 H Carbon Dioxide 18 L BUN 44 H Creatinine 1.35 Glucose 124 H Calcium 7.8 L Liver Function 09/17/21 Range/Units 07:52 Total Bilirubin 1.0 (0.2-1) mg/dl AST 13 L (15-37) U/L ALT 20 (12-78) U/L Alkaline Phosphatase 91 (45-117) U/L Albumin 1.7 L (3.4-5.0) gm/dl Diagnostic Findings KUB X-Ray 09/17/21 07:00 KUB CLINICAL HISTORY: Follow up obstruction. COMPARISON STUDY: CT of the abdomen and pelvis September 14, 2021. KUB September 15, 2021. FINDINGS: Tip of nasogastric tube is within the proximal body of the stomach. Sidehole is at the gastroesophageal junction. The tube could be advanced an additional 3 cm. Persistent gaseous colonic distention is noted. The hepatic flexure measures 12.8 cm in caliber. This has mildly increased since prior exam. There is mild gaseous distention of the small bowel. This is similar to prior exam. IMPRESSION: 1. Tip of nasogastric tube within the proximal body of the stomach with sidehole at the gastroesophageal junction. The tube could be advanced an additional 3 cm. 2. Slight increase in gaseous distention of the colon. Mild small bowel dilatation. The findings could reflect an ileus or distal obstruction. Continued follow-up recommended. ACT 112: Negative or not required by law. Electronically signed by: Luis Alberto Echevarria M.D. 09/17/2021 7:26 AM Medications Administered Current Inpatient Medications Acetaminophen (Acetaminophen 1000 Mg/100 Ml Iv) 1,000 mg IV Q8H [facility] Stop: 09/19/21 00:00 Last Admin: 09/17/21 09:07 Dose: 1,000 mg Documented by: Albuterol (Albuterol Hfa 8 Gm Inhaler) 2 puffs INH Q6R PRN PRN Reason: Wheezing Stop: 10/14/21 19:10 Atenolol (Atenolol 25 Mg Tablet) 25 mg PO BID [facility] Stop: 10/14/21 20:59 Last Admin: 09/15/21 08:08 Dose: 25 mg Documented by: Enoxaparin Sodium (Enoxaparin Inj 40 Mg/0.4 Ml Syr) 40 mg SQ QAM [facility] Stop: 10/16/21 08:59 Last Admin: 09/17/21 09:06 Dose: Not Given Documented by: Fluticasone/Vilanterol (Fluticasone/Vilanterol 100/25mcg 14 Puffs/Inhaler) 1 puffs INH DAILY [facility]; Protocol Stop: 10/15/21 08:59 Last Admin: 09/17/21 09:06 Dose: 1 puffs Documented by: Sodium Chloride (Nss) 1,000 mls @ 125 mls/hr IV .Q8H [facility] Stop: 10/14/21 22:14 Last Admin: 09/16/21 22:59 Dose: 125 mls/hr Documented by: Metronidazole (Flagyl) 500 mg in 100 mls @ 100 mls/hr IV Q8H [facility] Stop: 09/26/21 09:59 Last Infusion: 09/17/21 03:15 Dose: Infused Documented by: Dextrose (D10w) 1,000 mls @ 0 mls/hr IV .Q0M PRN PRN Reason: protocol (see label comments) Stop: 10/16/21 14:31 Sodium Chloride (Nss 1000ml) 1,000 mls @ 15 mls/hr IV .Q24H [facility] Stop: 10/17/21 10:14 Last Infusion: 09/17/21 10:33 Dose: Infused Documented by: Melatonin (Melatonin 3 Mg Tab) 3 mg PO HS PRN PRN Reason: Sleep Stop: 10/15/21 21:24 Last Admin: 09/15/21 23:25 Dose: 3 mg Documented by: Miscellaneous Information (Tpn/Ppn Consult Pharmacy) 1 ea N/A UD PRN PRN Reason: Consult Stop: 10/16/21 14:30 Raspberry (Raspberry Syrup 5 Ml Udp) 5 ml PO Q6H [facility] Stop: 09/26/21 09:59 Last Admin: 09/17/21 04:09 Dose: 5 ml Documented by: Umeclidinium [place] (Umeclidinium [place] 62.5mcg/Blister 7 Puffs/Inhaler) 1 puffs INH DAILY [facility]; Protocol Stop: 10/15/21 08:59 Last Admin: 09/17/21 09:06 Dose: 1 puffs Documented by: Vancomycin HCl (Vancomycin Hcl 500 Mg/10 Ml Soln) 500 mg PO Q6H [facility] Stop: 09/26/21 09:59 Last Admin: 09/17/21 04:09 Dose: 500 mg Documented by: Vancomycin HCl (Vancomycin Hcl 500 Mg/100 Ml Enema) 500 mg IA Q6H [facility] Stop: 09/26/21 09:59 Last Admin: 09/17/21 04:09 Dose: 500 mg Documented by: Verapamil HCl (Verapamil Hcl 180 Mg Tabcr) 360 mg PO QAM [facility] Stop: 10/15/21 08:59 Last Admin: 09/17/21 09:07 Dose: Not Given Documented by:
[2021-09-17] MEDS ORDERED: cefOXitin 2,000 MG/60 ML BAG IV ONE (11:37)
--- NOTE | 2021-09-17 12:02 | Pharmacy Report ---
Pharmacy PN Initial Consult - Date of Service September 17, 2021 - Scope Pharmacy has been consulted to manage parenteral nutrition orders and order appropriate labs. As part of the Nutrition Support Team guidelines, pharmacy will work in conjunction with dietary when determining the patients caloric needs. - Subjective The patient is a 80 year old M admitted on 09/14/21 15:43 for ABDOMINAL DISTENTION, LEUKOCYTOSIS. Patient is to receive parenteral nutrition for Pse udo-obstruction / prolonged NPO. C. diff positive and plan for ex-lap today Pertinent PMH: CKD - Objective Height: 5 ft 7 in Weight: 91.8 kg Diet: NPO Vascular Access:: Peripheral - OK to use per IV team Intake & Output (Last 24Hrs): Intake & Output 09/15/21 09/16/21 09/17/21 09/18/21 06:59 06:59 06:59 06:59 Intake Total 1722.5 / 1722.5 3140.417 / 3140.417 2300 / 2300 0 / 0 Output Total 980 / 980 1402 / 1402 Balance 1722.5 / 1722.5 2160.417 / 2160.417 898 / 898 0 / 0 Weight 91.8 kg 91.8 kg 91.8 kg Laboratory Data (Last 24 Hrs):: 09/17/21 07:52 Sodium 145 Potassium 3.7 Chloride 116 H Carbon Dioxide 18 L BUN 44 H Creatinine 1.35 Glucose 124 H Calcium 7.8 L Phosphorus 2.8 Magnesium 2.4 Total Bilirubin 1.0 AST 13 L ALT 20 Alkaline Phosphatase 91 Albumin 1.7 L Nutrition Assessment:: Please refer to the Notes section of the EMR for the most recent astro technician note. - Plan For day 1 of PN administration, the following will be ordered: Macronutrients Amino acids 60 grams/day Dextrose 100 grams/day Lipids 50 grams/day Micronutrients Combined electrolytes 20 mL - contains 35 mEq Na, 20 meq K, 4.5 mEq Ca, 5 mEq Mg, 35 mEq Cl, 29.5 mEq acetate per 20 mL Sodium phosphate 21 MMol Sodium acetate 50 mEq Multivitamins 10 mL Trace Elements 10 mL Total volume 1800 mL to be infused over 24 hrs will provide 1130 kcal/day Final osmolarity 759 mOsm/L (maximum for PPN is 900 mOsm/L) Labs to be ordered per PN order protocol Pharmacy will follow and adjust parenteral nutrition orders on a daily basis. Thank you.
[2021-09-17] MEDS ORDERED: MIDAZOLAM HCL 1 MG/ML 2ML VIAL ONE (12:21)
[2021-09-17] MEDS ORDERED: MoRPHine SULFATE 2 MG/ML CARP ONE (12:21)
--- NOTE | 2021-09-17 12:59 | Post Operative Brief Note ---
PG Immediate Post Op with CF Date of Surgery September 17, 2021 Pre & Post Diagnosis Operation Date: 09/17/21 09:00 Pre-Op Diagnosis: Necrotizing Colitis Post-Op Diagnosis: Necrotizing Colitis I identified the patient and participated in the time-out.: Yes Procedure Operation Date: 09/17/21 09:00 Actual Procedures p Exploratory Laparotomy, Subtotal Colectomy(Not Applicable) - Alverto Chau MD, FACS Surgeon Alverto Chau MD, FACS Live In Caregiver Chidi Perdue Estimated Blood Loss 50 Findings Consistent with Post-Op Diagnosis Ischemic colon-cecum to descending colon Severely distended Specimens Specimen Description: A: Subtotal Colectomy Drains Huang Catheter
[2021-09-17] MEDS ORDERED: PIPERACILL/TAZOBAC CONSULT ACTIVE PRN (13:38)
[2021-09-17] MEDS ORDERED: HYDROmorphone INJ 0.5 MG/0.5 ML SYR IV PRN (13:38)
[2021-09-17] MEDS ORDERED: HYDROmorphone INJ 1 MG/ML SYRINGE IV PRN (13:38)
--- NOTE | 2021-09-17 13:46 | Operative Report (OR) ---
DATE OF OPERATION: 09/17/2021 NAME OF OPERATION: 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 PREOPERATIVE DIAGNOSIS: Necrotizing colitis. POSTOPERATIVE DIAGNOSIS: Necrotizing colitis. STAFF SURGEON: Alverto Chau MD. PRODUCTION GRADER: Koko Perdue PA-C. ANESTHESIA: General. DESCRIPTION OF PROCEDURE: The patient was brought in the operating room, placed on the operating tab le in supine position. Arterial line was placed. Huang catheter placed. This was after he was intu bated. The patient's abdomen was prepped and draped in the usual fashion. He had a very distended a bdomen. We did make a midline incision from just below the xiphoid down below the umbilicus, carryin g dissection down into the abdomen encountering a very large distended, cyanotic colon, which was obv iously ischemic from the cecum to the descending colon. My thought was that the patient should under go a subtotal colectomy. We began by mobilizing the ileum and right colon going along the white line of Toldt. The ileum was transected using a VANITA stapler and then the right colon mobilized transecti ng the mesentery using LigaSure and 2-0 silk sutures and 0 chromic sutures. This was carried around the transverse colon and descending colon, excising also the sigmoid colon. The sigmoid colon and re ctum appeared to be normal. The rectosigmoid was transected using the VANITA stapler. The stapled end was oversewn using 3-0 Prolene suture. The colon was placed in a specimen container and sent to path ology. At this point, we irrigated the abdomen with antibiotic solution. We placed a 19 round Jacks on-Cortes drain through the left abdomen into the pelvis. As a note, the patient did have some cloudy fluid in the abdomen when we operated, which I suspected could have been infected. The end ileostom y was brought out through the right abdominal wall, secured to the fascia using 3-0 silk suture and t hen matured to the skin using 2-0 chromic suture. Prior to doing this, we did close the fascia using both running and interrupted #1 PDS suture. Two large retention sutures were placed. Skin loosely reapproximated using oneal with iodoform gauze placed between the oneal. Stoma appliance placed, dressing applied. The patient was transferred to the intensive care unit in critical condition. Jermain ID: [id number]
[2021-09-17] MEDS ORDERED: STAT IV Infusion **Titration per Protocol STA (13:49)
--- NOTE | 2021-09-17 13:49 | Communication Note ---
Date of Service: September 17, 2021 Requested an ICU bed and mechanical ventilator for patient that had extensive laparotomy. Discussed case w/ Dr Chau and Dr Hutchinson. All concur that patient would be best served by remaining intubated/mech. ventilated in ICU. Pt was transported to ICU and attached to [facility]. vent. w/ ventilatory protocol as per ICU/Dr Hutchinson. Report was given to RN ,Resp. Therapy and Dr Hutchinson.
--- NOTE | 2021-09-17 13:51 | Anesthesiology Progress Note ---
Date of Service September 17, 2021 Anesthesia Post Procedure Vital Signs Vital Signs: Temp Pulse Pulse Pulse Resp BP Pulse Ox 09/17/21 13:48 18 09/17/21 13:29 85 15 95 09/17/21 09:25 37 C 103 H 24 114/61 97 09/17/21 08:00 09/17/21 07:49 36.4 C L 83 18 116/73 92 09/16/21 23:48 36.8 C 78 24 121/70 94 09/16/21 14:41 36.8 C 63 16 127/68 93 Pulse Ox 09/17/21 13:48 09/17/21 13:29 09/17/21 09:25 09/17/21 08:00 95 09/17/21 07:49 09/16/21 23:48 09/16/21 14:41 Pain Intensity Abdomen: Pain Intensity: 5 Transfer of Care Handoff Completed per policy Notes Mental Status: see notes below Patient Amnestic to Procedure: Yes Nausea / Vomiting: see Notes below Pain: see Notes below BP & HR: stable & adequate Hydration State: stable & adequate Anesthetic Complications: no major complications apparent Notes: Pt remains sedated ,intubated and mechanically ventilated.
[2021-09-17] MEDS ORDERED: PIPERACILLIN/TAZOBACTAM 4.5 GM in DEXTROSE 5% 100 ML IV ONE (14:00)
[2021-09-17] MEDS ORDERED: fentaNYL DRIP 1,250 MCG/250 ML BAG IV SCH (14:00)
[2021-09-17] MEDS ORDERED: PROPOFOL IV EMULSION 10 MG/ML 100 ML VIAL IV ONE (14:02)
[2021-09-17] MEDS: propofoL 1,000 MG/100 ML VIAL IV SCH ×2 (14:18→22:35)
[2021-09-17] MEDS: SODIUM CHLORIDE 0.9% 1,000 ML IV SCH ×2 (14:18→14:28)
[2021-09-17 14:20] LABS: Albumin Level 1.8 gm/dl (3.4-5.0); BUN Creatinine Ratio 24.6 (10-20); Calcium 6.8 mg/dl (8.5-10.1); Creatinine Clr Calc Pharmacy 37.9 ml/min; Est GFR (African American) 44.5 ml/min; Est GFR (Non-African American) 38.4 ml/min; Magnesium 2.4 mg/dl (1.8-2.4); Potassium 4.1 mmol/L (3.5-5.1)
[2021-09-17 14:23] LABS: Albumin Globulin Ratio 0.5 (0.9-2); Globulin 3.5 gm/dl (2.5-4.0); Hematocrit (blood only) 31.3 % (42-52); Mean Corpuscular Hemoglobin 30.8 pg (25-34); Mean Corpuscular Hgb Conc 31.9 g/dL (32-36); Mean Corpuscular Volume 96.3 fL (80-100); Mean Platelet Volume 12.7 fL (7.4-10.4); Platelet Count 98 K/uL (130-400); RDW Coefficient of Variation 15.3 % (11.5-14.5); Red Blood Count 3.25 M/uL (4.7-6.1); Total Protein 5.3 gm/dl (6.4-8.2); White Blood Count 36.84 K/uL (4.8-10.8)
--- NOTE | 2021-09-17 14:30 | Critical Care Consultation ---
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 difficile colitis and toxic megacolon status post subtotal colectomy. Recommendations: 1. Neurologic: Will provide propofol at baseline until the patient's neuromuscular blockade is worn off. At that point time I anticipate he should be able to extubate reasonably well. Pain control per surgery. 2. Cardiovascular: The patient is hemodynamically stable. He is at risk for significant fluid shifts in the postoperative period and will continue to monitor. Hold diuretics or other beta-blocking agents currently. 3. Pulmonary: History of COPD. PFTs last performed March 2017 showed an FEV1 of 1.7 L or 59% predicted with an FVC of 2.15 L or 57% predicted and a normal ratio of 79. Lung volumes confirm restriction with a total lung capacity of 62% predicted with an FRC of 60% predicted and RV of 73% predicted. Diffusion capacity is reduced at 34% predicted but corrects to 72% predicted when adjusted for alveolar ventilation. Bronchodilators at that time demonstrated no significant improvement in flows. I am not sure the etiology of his restrictive physiology but this does not appear consistent with a diagnosis of COPD. On CT scan the patient does have a loculated pneumothorax as well as significant pleural calcifications which likely are causing his restrictive PFTs. Its unclear the source but at this point time this appears to be a secondary issue. There is no indication for steroids bronchodilators currently. Once his neurological status is appropriate, we will plan on trying to extubate him. Suspect he will need supplemental oxygen and may require noninvasive positive pressure ventilation post extubation. 4. ID: C. difficile colitis. Status post subtotal colectomy. Continue p.o. vancomycin and IV Flagyl. Suspect his white count should improve at this point time. Surgeons to place the patient on Zosyn postoperatively although there did not appear to be bowel perforation but certainly peritonitis was in place. 5. Heme-onc: Mild anemia which has been chronic going back for some time. No indication for transfusion currently. Platelet counts are slightly low and will need to be followed. White blood cell count should improve with resolution of infectious focus. 6. Renal: Progressive renal insufficiency with creatinine up to 1.6 and sodium up to 147. Will need some free water. Will replace calcium as well. His albumin is low and likely reflects nutritional stores. We will need to get p.o. intake soon as possible. No indication for parenteral feeding. Repeat labs in the a.m. 7. GI: GI notes reviewed. Toxic megacolon status post subtotal colectomy. Continue to follow at this point time for ostomy output and return of bowel function which would allow for enteral feeding. 8. Endocrine: Glycemic control per protocol. 9. DVT prophylaxis and GI prophylaxis will be continued. May need to transition from Lovenox to heparin if kidney function continues to decline. Patient is critically ill at this point time. A total of 40 minutes critical care time was spent evaluating managing and stabilizing this patient including discussion with bedside critical care nurse, surgical service, respiratory therapy, and pharmacy. History of Present Illness Attending Physician: Adelso Finney MD History of Present Illness Asked by surgical service to assist with critical care management this patient status post subtotal colectomy for C. difficile colitis with toxic megacolon. History is obtained from discussion with the surgical service as well as review the electronic medical record. Patient is intubated paralyzed and unable to provide any history. The patient is an 80-year-old male who presented to the hospital 09/14/2021 with complaints of abdominal distention and poor appetite. Initial KUB showed dilatation of the colon. He had surgery consultation and GI consultation pe rformed. He was found to have C. difficile. He was initiated on p.o. vancomycin and IV Flagyl. Despite this his colon continued to distend and his white count climbed to 40,000. He was taken to the OR today for subtotal colectomy. The proximal colon apparently demonstrated some patchy necrosis but no perforation. The distal rectum appeared viable. A diverting ileostomy was undertaken. Due to the patient's illness, he was left intubated and brought from the OR straight to the ICU. He is hemodynamically stable but appears to be under the influence of neuromuscular blockade. He is on minimal vent settings currently. And the patient does have a history of chronic hypoxemic respiratory failure and uses oxygen at baseline. Allergies Allergy/AdvReac Type Severity Reaction Status Date / Time diltiazem [From Cardizem] Allergy Severe hives Verified 09/14/21 14:36 telmisartan Allergy Unknown Unknown Verified 09/14/21 14:36 Home Medications Medication Instructions Recorded Confirmed Type aspirin 81 mg tablet,delayed 81 mg PO HS 08/04/19 09/14/21 History release atenolol 25 mg tablet 25 mg PO BID #180 tab 12/25/20 09/14/21 Rx celecoxib 200 mg capsule (Celebrex) 200 mg PO BID #180 cap 12/25/20 09/14/21 Rx simvastatin 40 mg tablet 40 mg PO HS #90 tab 01/17/21 09/14/21 Rx mometasone-formoterol HFA 200 2 puff INHALATION BID #3 inhaler 02/19/21 09/14/21 Rx mcg-5 mcg/actuation aerosol inhaler (Dulera) tiotropium bromide 18 mcg capsule See Rx Instructions .ROUTE 07/12/21 09/14/21 Rx with inhalation device (Spiriva .COMPLEX #90 capsule with HandiHaler) albuterol sulfate 90 mcg/actuation 2 puff INHALATION Q6 PRN 09/14/21 09/14/21 History aerosol inhaler (Ventolin HFA) ondansetron 4 mg disintegrating 4 mg PO Q4 PRN 09/14/21 09/14/21 History tablet verapamil 360 mg 24 hr 360 mg PO QAM 09/14/21 09/14/21 History capsule,extended release Patient History Medical History Abdominal pain Anemia Arteriosclerotic cardiovascular disease Asbestosis Benign prostatic disease Chronic kidney disease Chronic obstructive pulmonary disease Chronic respiratory failure with hypoxia Dehydration Emphysematous bleb Hyperlipidemia Hypertension Impaired fasting glucose Obstructive sleep apnea Pleural effusion on right Pleural plaque with presence of asbestos Pulmonary nodule Surgical History H/O colonoscopy History of cataract surgery History of shoulder surgery right shoulder surgery Family History Father Emphysema, unspecified Brother Cancer Mother Glaucoma Cancer skin Sister Renal failure Denies family history of Ovarian cancer Prostate cancer Myocardial infarction Breast cancer Colorectal cancer Social History Smoking Status: Former smoker Tobacco Type: Cigarettes Age Started Using Tobacco: 15; Age Quit Using Tobacco: 49; packs per day: 1; Second Hand Exposure: No; Hx Alcohol Use: Yes Alcohol type: beer Alcohol Intake Frequency Comment: has a couple once a week Hx Substance Use: Yes Preferred Language: Surinamese Communication Ability: Effective Visual Impairment: No Limitations Hearing Ability: Normal Terminal Manager Required: No Beliefs That Will Affect Care: None marital status: Current Living Situation: Spouse and Personal Care Facility Current Living Situation Comment: recently moved from [facility] to [facility] current occupational status: retired 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 [employer] How many Children do You have: 2 Other Information That Helps Us Care for You: No Feels Safe at Home: No Safety Concerns: Feels Safe At This Time Childhood Exposure to Second-Hand Smoke: Yes Dental Care, Regularly: No Physical Activity Frequency: Does not Exercise Seatbelt Use: always Sunscreen Use: No Assistive Devices: Oxygen - Continuous Review of Systems Review of Systems: Unobtainable due to endotracheal tube Physical Exam Constitutional: WD/WN, vitals as above Patient is intubated and sedated Neck: trachea midline, no thyromegaly Respiratory: normal respiratory effort, lungs clear to auscultation Cardiovascular: RRR, no murmur, no edema Gastrointestinal (Abdomen): Midline incision. Bowel sounds are absent. NG tube. Not significantly distended. Unable to appreciate tenderness due to sedatives and paralytics Musculoskeletal: Extremities: extremities normal to inspection Skin: no rashes, warm and dry Neurologic: Nonfocal exam Lymphatic: no cervical lymphadenopathy Results & Data Results & Data ([facility] [place]) Vital Signs (Past 12 Hours) Vital Signs Temp Pulse Pulse Pulse Resp BP Pulse Ox 09/17/21 13:48 18 09/17/21 13:29 85 15 95 09/17/21 09:25 37 C 103 H 24 114/61 97 09/17/21 08:00 09/17/21 07:49 36.4 C L 83 18 116/73 92 Pulse Ox 09/17/21 13:48 09/17/21 13:29 09/17/21 09:25 09/17/21 08:00 95 09/17/21 07:49 Critical Care Results & Data Vital Signs (Past 12 Hours) Vital Signs Temp Pulse Pulse Pulse Resp BP Pulse Ox 09/17/21 13:48 18 09/17/21 13:29 85 15 95 09/17/21 09:25 37 C 103 H 24 114/61 97 09/17/21 08:00 09/17/21 07:49 36.4 C L 83 18 116/73 92 Pulse Ox 09/17/21 13:48 09/17/21 13:29 09/17/21 09:25 09/17/21 08:00 95 09/17/21 07:49 Lab & Micro Results (Past 24 Hours) RBC 3.73 M/uL (4.7-6.1) L 09/17/21 WBC 43.96 K/uL (4.8-10.8) H* 09/17/21 Hgb 11.7 g/dL (14.0-18.0) L 09/17/21 Hct 35.3 % (42-52) L 09/17/21 MCV 94.6 fL (80-100) 09/17/21 MCH 31.4 pg (25-34) 09/17/21 MCHC 33.1 g/dL (32-36) 09/17/21 RDW Standard Deviation 52.7 fL (36.4-46.3) H 09/17/21 RDW Coefficient of Variation 15.2 % (11.5-14.5) H 09/17/21 Plt Count 113 K/uL (130-400) L 09/17/21 MPV 12.7 fL (7.4-10.4) H 09/17/21 ANC 42.51 K/uL (1.4-6.5) H 09/17/21 ALC 0.35 K/uL (1.2-3.4) L 09/17/21 Neutrophils % (Manual) 96.7 % 09/17/21 Lymphocytes % (Manual) 0.8 % 09/17/21 Monocytes % (Manual) 2.5 % 09/17/21 Neutrophils # (Manual) 42.51 K/uL (1.4-6.5) H 09/17/21 Lymphocytes # (Manual) 0.35 K/uL (1.2-3.4) L 09/17/21 Monocytes # (Manual) 1.10 K/uL (0.11-0.59) H 09/17/21 Echinocytes 2+ 09/17/21 Na 145 mmol/L (136-145) 09/17/21 K 3.7 mmol/L (3.5-5.1) 09/17/21 Cl 116 mmol/L (98-107) H 09/17/21 CO2 18 mmol/L (21-32) L 09/17/21 Anion Gap 12.0 (3-11) H 09/17/21 BUN 44 mg/dl (7-18) H 09/17/21 Creatinine 1.35 mg/dl (0.6-1.4) 09/17/21 Estimated GFR ( Amer) 56.7 ml/min 09/17/21 Estimated GFR (Non-Af Amer) 48.9 ml/min 09/17/21 BUN/Creatinine Ratio 32.6 (10-20) H 09/17/21 Glu 124 mg/dl (70-99) H 09/17/21 Ca 7.8 mg/dl (8.5-10.1) L 09/17/21 Phosphorus Level 2.8 mg/dl (2.5-4.9) 09/17/21 Total Bilirubin 1.0 mg/dl (0.2-1) 09/17/21 AST 13 U/L (15-37) L 09/17/21 ALT 20 U/L (12-78) 09/17/21 Alkaline Phosphatase 91 U/L (45-117) 09/17/21 TP 6.1 gm/dl (6.4-8.2) L 09/17/21 Albumin 1.7 gm/dl (3.4-5.0) L 09/17/21 Globulin 4.4 gm/dl (2.5-4.0) H 09/17/21 Albumin/Globulin Ratio 0.4 (0.9-2) L 09/17/21 Mg 2.4 mg/dl (1.8-2.4) 09/17/21 07:52 09/17/21 Calcium Level 7.8 mg/dl (8.5-10.1) L 09/17/21 07:52 09/17/21 Microbiology 09/14/21 17:37 Aerobic Blood Culture - Preliminary Blood No growth in Aerobic bottle after 48 hours. Anaerobic Blood Culture - Preliminary No growth in Anaerobic bottle after 48 hours. 09/14/21 17:37 Aerobic Blood Culture - Preliminary Blood No growth in Aerobic bottle after 48 hours. Anaerobic Blood Culture - Preliminary No growth in Anaerobic bottle after 48 hours. Diagnostic Findings (Past 24 Hours) KUB X-Ray 09/17/21 07:00 KUB CLINICAL HISTORY: Follow up obstruction. COMPARISON STUDY: CT of the abdomen and pelvis September 14, 2021. KUB September 15, 2021. FINDINGS: Tip of nasogastric tube is within the proximal body of the stomach. Sidehole is at the gastroesophageal junction. The tube could be advanced an additional 3 cm. Persistent gaseous colonic distention is noted. The hepatic flexure measures 12.8 cm in caliber. This has mildly increased since prior exam. There is mild gaseous distention of the small bowel. This is similar to prior exam. IMPRESSION: 1. Tip of nasogastric tube within the proximal body of the stomach with sidehole at the gastroesophageal junction. The tube could be advanced an additional 3 cm. 2. Slight increase in gaseous distention of the colon. Mild small bowel dilatation. The findings could reflect an ileus or distal obstruction. Continued follow-up recommended. ACT 112: Negative or not required by law. Electronically signed by: Luis Alberto Echevarria M.D. 09/17/2021 7:26 AM I & O Totals 24 Hours 09/16/21 09/17/21 09/18/21 06:59 06:59 06:59 Intake Total 3140.417 / 3140.417 2300 / 2300 60 / 60 Output Total 980 / 980 1402 / 1402 Balance 2160.417 / 2160.417 898 / 898 60 / 60 Cumulative 09/14/21 11:51 thru 09/17/21 12:11 Intake Total 7222.917 Output Total 2382 Balance 4840.917 RT Ventilator Mngmt (Last Documented) Ventilator Ordered Settings Ventilator Support Mode Assist Control 09/17/21 13:29 Respiratory Rate 18 09/17/21 13:48 Ventilator Tidal Volume 420 09/17/21 13:48 Setting Minute Ventilation 6.9 09/17/21 13:29 Positive End Expiratory 5 09/17/21 13:29 Pressure Fraction of Inspired Oxygen 60 09/17/21 13:29 Machine Comment changes made by Dr. 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
[2021-09-17 14:36] LABS: ANC (manual) 35.62 K/uL (1.4-6.5); Echinocytes 3+; Monocytes # (manual) 0.92 K/uL (0.11-0.59); Monocytes % (manual) 2.5 %; Myelocytes # (manual) 0.29 K/uL (0-0); Myelocytes % (manual) 0.8 %; Neutrophils # (manual) 35.62 K/uL (1.4-6.5); Neutrophils % (manual) 96.7 %
[2021-09-17] MEDS ORDERED: CALCIUM GLUCONATE 10% 2,000 MG in SODIUM CHLORIDE 0.9% 50 ML IV ONE (15:00)
[2021-09-17] MEDS: D5W AND 1/4NSS 1,000 ML IV SCH (15:32)
[2021-09-17] MEDS: LANSOPRAZOLE 30 MG SOLTAB PO SCH (15:32)
[2021-09-17] MEDS ORDERED: Custom Peripheral Pn 1,800 ML in TPN BAG 0 ML IV SCH (16:00)
[2021-09-17] MEDS: PROPOFOL BOLUS FROM BAG IV PRN (19:42)
[2021-09-17] MEDS: PIPERACILLIN/TAZOBACTAM 3.375 GM in DEXTROSE 5% 100 ML IV SCH (19:55)
[2021-09-18] MEDS: metroNIDAZOLE 500 MG/100 ML BAG IV SCH ×3 (01:34→18:45)
[2021-09-18] MEDS: D5W AND 1/4NSS 1,000 ML IV SCH (03:29)
[2021-09-18] MEDS: PROPOFOL BOLUS FROM BAG IV PRN (03:33)
[2021-09-18] MEDS: PIPERACILLIN/TAZOBACTAM 3.375 GM in DEXTROSE 5% 100 ML IV SCH ×3 (03:34→21:03)
[2021-09-18] MEDS: RASPBERRY SYRUP 5 ML UDP PO SCH ×4 (03:36→21:08)
[2021-09-18] MEDS: VANCOMYCIN HCL 500 MG/10 ML SOLN PO SCH ×4 (03:36→21:08)
[2021-09-18] MEDS ORDERED: GLUCOSE 40% GEL 15 GM TUBE PO PRN (05:58)
[2021-09-18] MEDS ORDERED: CARBOHYDRATES FOR HYPOGLYCEMIA PO PRN (05:58)
[2021-09-18] MEDS ORDERED: DEXTROSE 50% 50 ML SYRINGE IV PRN (05:58)
[2021-09-18] MEDS ORDERED: GLUCAGON FOR INJ 1 MG VIAL SQ PRN (05:58)
[2021-09-18] MEDS ORDERED: PHARMACY GLYCEMIC MGMT CONSULT PRN (05:58)
[2021-09-18] MEDS ORDERED: GLUCOSE 10 TABS/TUBE PO PRN (05:58)
[2021-09-18] MEDS ORDERED: fentaNYL citrate 100 MCG/2 ML VIAL IV PRN (06:01)
[2021-09-18 06:32] LABS: Hematocrit (blood only) 32.3 % (42-52); Hemoglobin 10.5 g/dL (14.0-18.0); Mean Corpuscular Hemoglobin 31.1 pg (25-34); Mean Corpuscular Hgb Conc 32.5 g/dL (32-36); Mean Corpuscular Volume 95.6 fL (80-100); Mean Platelet Volume 12.7 fL (7.4-10.4); Platelet Count 91 K/uL (130-400); RDW Coefficient of Variation 15.5 % (11.5-14.5); RDW Standard Deviation 54.2 fL (36.4-46.3); Red Blood Count 3.38 M/uL (4.7-6.1); White Blood Count 26.53 K/uL (4.8-10.8)
[2021-09-18 06:42] LABS: Basophils # (auto) 0.02 K/uL (0-0.2); Basophils % (auto) 0.1 %; Echinocytes 1+; Immature Granulocytes # (auto) 0.79 K/uL (0.00-0.02); Lymphocytes # (auto) 1.31 K/uL (1.2-3.4); Lymphocytes % (auto) 4.9 %; Monocytes # (auto) 1.19 K/uL (0.11-0.59); Monocytes % (auto) 4.5 %; Neutrophils # (auto) 23.22 K/uL (1.4-6.5); Neutrophils % (auto) 87.5 %
[2021-09-18 06:50] LABS: BUN Creatinine Ratio 27.4 (10-20); Calcium 7.5 mg/dl (8.5-10.1); Creatinine Clr Calc Pharmacy 44.9 ml/min; Est GFR (African American) 53.8 ml/min; Est GFR (Non-African American) 46.4 ml/min; Magnesium 2.5 mg/dl (1.8-2.4); Potassium 3.7 mmol/L (3.5-5.1)
[2021-09-18 07:05] LABS: Phosphorus 1.7 mg/dl (2.5-4.9)
--- NOTE | 2021-09-18 08:22 | Critical Care Progress Note ---
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 difficile colitis and toxic megacolon status post subtotal colectomy 09/17/2021 24-hour events: Patient was taken to the OR for subtotal colectomy. He returned to the ICU intubated. Sedation was weaned and he was extubated earlier this morning. He is doing well Recommendations: 1. Neurologic: Pain control per surgery. 2. Cardiovascular: A. fib. Appears to be paroxysmal. Give IV dose of metoprolol now and start p.o. metoprolol. ECG this AM. Hold anticoagulation given recent surgery. Cardiology consultation. 3. Pulmonary: History of COPD. PFTs last performed March 2017 showed an FEV1 of 1.7 L or 59% predicted with an FVC of 2.15 L or 57% predicted and a normal ratio of 79. Lung volumes confirm restriction with a total lung capacity of 62% predicted with an FRC of 60% predicted and RV of 73% predicted. Diffusion capacity is reduced at 34% predicted but corrects to 72% predicted when adjusted for alveolar ventilation. Bronchodilators at that time demonstrated no significant improvement in flows. I am not sure the etiology of his restrictive physiology but this does not appear consistent with a diagnosis of COPD. On CT scan the patient does have a loculated pneumothorax as well as significant pleural calcifications which likely are causing his restrictive PFTs. Its unclear the source but at this point time this appears to be a secondary issue. There is no indication for steroids bronchodilators currently. Wean oxygen as tolerated. Pulmonary toilet/incentive spirometry 4. ID: C. difficile colitis. Status post subtotal colectomy. Continue p.o. vancomycin and IV Flagyl. White count improved. On Zosyn per surgery. Defer duration of this antibiotics to general surgery. 5. Heme-onc: Mild anemia which has been chronic going back for some time. No indication for transfusion currently. Platelet counts continue to slightly decrease. 6. Renal: Serum creatinine better. Hypernatremia correcting. Will replace calcium and phosphate. Continue hypotonic IV fluids for an additional 24 hours and then reassess 7. GI: Diet per surgery. Would not recommend parenteral nutrition 8. Endocrine: Glycemic control per ICU protocol. 9. DVT prophylaxis and GI prophylaxis will be continued. PT OT consultations and out of bed as tolerated Discussed with general surgery and on multidisciplinary rounds and with bedside critical care nurse. Pt appears stable to potentially transfer out of ICU. Defer to surgery and hospitalists. CC issues appear resolved. Will sign off. Call if questions. Admission and Anticipated Discharge Date Admission Date: September 14, 2021 Subjective Patient seen and examined. He was extubated overnight. He states he wants some ice water. He is having some slight output through his ostomy. He denies abdominal pain. Review of Systems Review of Systems: All systems reviewed & are unremarkable except as noted in Subjective Physical Exam Constitutional: WD/WN, vitals as above Neck: trachea midline, no thyromegaly Respiratory: Coarse breath sounds bilaterally without wheezing. Few rales at the bases Cardiovascular: RRR, no murmur, no edema Gastrointestinal (Abdomen): Slightly distended. Ostomy is pink with small degree of output. He is slightly distended. Bowel sounds are absent. Musculoskeletal: Extremities: extremities normal to inspection Skin: no rashes, warm and dry Lymphatic: no cervical lymphadenopathy Results & Data Results & Data ([facility]) Vital Signs (Past 12 Hours) Vital Signs Temp Pulse Resp BP Pulse Ox 09/18/21 06:00 102 H 26 H 96 09/18/21 05:00 37.2 C 101 H 19 93 09/18/21 04:00 37.3 C 90 18 92 09/18/21 03:56 92 H 18 96 09/18/21 03:00 95 H 18 92 09/18/21 02:00 75 18 91 09/18/21 01:00 76 16 94 09/18/21 00:30 73 18 94 09/18/21 00:00 71 19 93 09/17/21 23:38 75 24 90 09/17/21 23:00 74 18 124/58 L 94 09/17/21 22:00 71 18 93 09/17/21 21:30 72 19 125/57 L 92 09/17/21 21:00 72 15 92 09/17/21 20:35 73 22 94 09/17/21 20:30 69 18 95 Critical Care Results & Data Vital Signs (Past 12 Hours) Vital Signs Temp Pulse Resp BP Pulse Ox 09/18/21 06:00 102 H 26 H 96 09/18/21 05:00 37.2 C 101 H 19 93 09/18/21 04:00 37.3 C 90 18 92 09/18/21 03:56 92 H 18 96 09/18/21 03:00 95 H 18 92 09/18/21 02:00 75 18 91 09/18/21 01:00 76 16 94 09/18/21 00:30 73 18 94 09/18/21 00:00 71 19 93 09/17/21 23:38 75 24 90 09/17/21 23:00 74 18 124/58 L 94 09/17/21 22:00 71 18 93 09/17/21 21:30 72 19 125/57 L 92 09/17/21 21:00 72 15 92 09/17/21 20:35 73 22 94 09/17/21 20:30 69 18 95 Lab & Micro Results (Past 24 Hours) RBC 3.38 M/uL (4.7-6.1) L 09/18/21 WBC 26.53 K/uL (4.8-10.8) H 09/18/21 Hgb 10.5 g/dL (14.0-18.0) L 09/18/21 Hct 32.3 % (42-52) L 09/18/21 MCV 95.6 fL (80-100) 09/18/21 MCH 31.1 pg (25-34) 09/18/21 MCHC 32.5 g/dL (32-36) 09/18/21 RDW Standard Deviation 54.2 fL (36.4-46.3) H 09/18/21 RDW Coefficient of Variation 15.5 % (11.5-14.5) H 09/18/21 Plt Count 91 K/uL (130-400) L 09/18/21 MPV 12.7 fL (7.4-10.4) H 09/18/21 Neutrophils (%) (Auto) 87.5 % 09/18/21 Lymphocytes (%) (Auto) 4.9 % 09/18/21 Monocytes # (Auto) 1.19 K/uL (0.11-0.59) H 09/18/21 Eosinophils # (Auto) 0.00 K/uL (0-0.5) 09/18/21 Immature Granulocyte % (Auto) 3.0 % 09/18/21 Neutrophils # (Auto) 23.22 K/uL (1.4-6.5) H 09/18/21 Lymphocytes # (Auto) 1.31 K/uL (1.2-3.4) 09/18/21 Monocytes # (Auto) 1.19 K/uL (0.11-0.59) H 09/18/21 Eosinophils # (Auto) 0.00 K/uL (0-0.5) 09/18/21 Basophils # (Auto) 0.02 K/uL (0-0.2) 09/18/21 Immature Granulocyte # (Auto) 0.79 K/uL (0.00-0.02) H 09/18/21 ANC 35.62 K/uL (1.4-6.5) H 09/17/21 ALC 0.00 K/uL (1.2-3.4) L 09/17/21 Neutrophils % (Manual) 96.7 % 09/17/21 Lymphocytes % (Manual) 0.0 % 09/17/21 Monocytes % (Manual) 2.5 % 09/17/21 Myelocytes % (Manual) 0.8 % 09/17/21 Neutrophils # (Manual) 35.62 K/uL (1.4-6.5) H 09/17/21 Monocytes # (Manual) 0.92 K/uL (0.11-0.59) H 09/17/21 Myelocytes # (Manual) 0.29 K/uL (0-0) H 09/17/21 Echinocytes 1+ 09/18/21 Na 144 mmol/L (136-145) 09/18/21 K 3.7 mmol/L (3.5-5.1) 09/18/21 Cl 117 mmol/L (98-107) H 09/18/21 CO2 21 mmol/L (21-32) 09/18/21 Anion Gap 6.0 (3-11) 09/18/21 BUN 39 mg/dl (7-18) H 09/18/21 Creatinine 1.41 mg/dl (0.6-1.4) H 09/18/21 Estimated GFR ( Amer) 53.8 ml/min 09/18/21 Estimated GFR (Non-Af Amer) 46.4 ml/min 09/18/21 BUN/Creatinine Ratio 27.4 (10-20) H 09/18/21 Glu 234 mg/dl (70-99) H 09/18/21 Ca 7.5 mg/dl (8.5-10.1) L 09/18/21 Phosphorus Level 1.7 mg/dl (2.5-4.9) L 09/18/21 Total Bilirubin 1.0 mg/dl (0.2-1) 09/17/21 AST 15 U/L (15-37) 09/17/21 ALT 18 U/L (12-78) 09/17/21 Alkaline Phosphatase 78 U/L (45-117) 09/17/21 TP 5.3 gm/dl (6.4-8.2) L 09/17/21 Albumin 1.8 gm/dl (3.4-5.0) L 09/17/21 Globulin 3.5 gm/dl (2.5-4.0) 09/17/21 Albumin/Globulin Ratio 0.5 (0.9-2) L 09/17/21 Mg 2.5 mg/dl (1.8-2.4) H 09/18/21 05:46 09/18/21 Calcium Level 7.5 mg/dl (8.5-10.1) L 09/18/21 05:46 09/18/21 I & O Totals 24 Hours 09/17/21 09/18/21 09/19/21 06:59 06:59 06:59 Intake Total 2300 / 2300 3026.549 / 3026.549 115 / 115 Output Total 1402 / 1402 1925 / 1925 Balance 898 / 898 1101.549 / 1101.549 115 / 115 Cumulative 09/14/21 11:51 thru 09/18/21 07:46 Intake Total 86620.466 Output Total 4307 Balance 5997.466 RT Ventilator Mngmt (Last Documented) Ventilator Ordered Settings Ventilator Support Mode Assist Control 09/18/21 03:56 Respiratory Rate 26 09/18/21 06:00 Ventilator Tidal Volume 420 09/18/21 03:56 Setting Minute Ventilation 7 09/18/21 03:56 Positive End Expiratory 5 09/18/21 03:56 Pressure Fraction of Inspired Oxygen 36 09/18/21 03:56 Machine Comment FiO2 titrated to 36%, patient 09/17/21 23:38 wears 4L O2 at home. Ventilator - PT Measurements Respiratory Rate 26 Exhaled Tidal Volume 420 Minute Ventilation 7 Peak Inspiratory Airway 20 Pressure Plateau Pressure 18 Respiratory Cycle Inspiratory: 1:3.2 Expiratory Ratio Inspiratory Phase Time 0.8 End-Tidal CO2 39 Static Lung Compliance 32.00 Dynamic Lung Compliance 28.00 Normal Static Lung Compliance 47.00 Patient Measurements Comment RT given the verbal order to trial patient on SBT for short period of time then extubate if patient tolerates. SBT successful, patient suctioned inline and orally. Extubated to 10L oxymask @ 0545. Patient's sats initially dropped to 83% but came right back up. Patient awake and answers questions but seems sleepy, Bipap mask and vent left in room if patient needs to go on bipap, RN aware. Sats 95% RR 24 HR 91. Coding Level of Care Code 39472 Subseq Hosp Care Lvl 3 Diagnoses Clostridium difficile colitis A04.72 Toxic megacolon due to Clostridioides difficile A04.72 Leukocytosis D72.829 Anemia D64.9 Chronic respiratory failure with hypoxia J96.11 Chronic obstructive pulmonary disease J44.9
[2021-09-18] MEDS ORDERED: POTASSIUM PHOS 3 MMOL/1 ML INFUSION IV STA (08:26)
[2021-09-18] MEDS ORDERED: SODIUM PHOSPHATE 3 MMOL/1 ML INFUSION IV STA (08:28)
[2021-09-18] MEDS ORDERED: METOPROLOL TARTRATE 1 MG/ML VIAL IV PRN (08:34)
[2021-09-18] MEDS ORDERED: CALCIUM GLUCONATE 10% 2,000 MG in SODIUM CHLORIDE 0.9% 50 ML IV ONE (08:45)
[2021-09-18] MEDS ORDERED: SODIUM CHLORIDE 0.9% IV ONE (09:00)
[2021-09-18] MEDS ORDERED: SODIUM PHOSPHATE IV ONE (09:00)
--- NOTE | 2021-09-18 09:07 | Surgery Progress Note ---
Date of Service September 18, 2021 Assessment & Plan (1) H/O colectomy: Plan: Patient is extubated He is awake and responsive He has an end ileostomy We will start him on ice and popsicles Leave his NG tube for today Continue wound care We will gradually advance his diet over the weekend but go slowly Continue his antibiotics Dr. Shukla will be covering over the weekend Admission and Anticipated Discharge Date Admission Date: September 14, 2021 Results & Data ([facility]) Vital Signs (Past 12 Hours) Vital Signs Temp Pulse Resp BP Pulse Ox 09/18/21 06:00 102 H 26 H 96 09/18/21 05:00 37.2 C 101 H 19 93 09/18/21 04:00 37.3 C 90 18 92 09/18/21 03:56 92 H 18 96 09/18/21 03:00 95 H 18 92 09/18/21 02:00 75 18 91 09/18/21 01:00 76 16 94 09/18/21 00:30 73 18 94 09/18/21 00:00 71 19 93 09/17/21 23:38 75 24 90 09/17/21 23:00 74 18 124/58 L 94 09/17/21 22:00 71 18 93 09/17/21 21:30 72 19 125/57 L 92 09/17/21 21:00 72 15 92 PG Care Time/CCT Total # of Minutes Spent Total Time Spent with Patient: Total time spent is greater than 50% in coordination of care (as documented) at patient's floor/unit and/or counseling patient: Coding Level of Care Code None Diagnoses H/O colectomy Z90.49
[2021-09-18] MEDS: METOPROLOL TARTRATE 25 MG TAB PO SCH ×2 (09:09→21:08)
[2021-09-18] MEDS: ENOXAPARIN INJ 40 MG/0.4 ML SYR SQ SCH (09:09)
[2021-09-18] MEDS: UMECLIDINIUM BROMIDE 62.5MCG/BLISTER 7 PUFFS/INHALER INH SCH (09:10)
[2021-09-18] MEDS: FLUTICASONE/VILANTEROL 100/25MCG 14 PUFFS/INHALER INH SCH (09:10)
[2021-09-18] MEDS: LANSOPRAZOLE 30 MG SOLTAB PO SCH (09:10)
[2021-09-18] MEDS: POTASSIUM CHLORIDE / WTR 10 MEQ/100 ML PLCT IV SCH ×2 (09:12→10:14)
[2021-09-18] MEDS: INSULIN ASPART 100 UNITS/ML 3 ML PEN SC SCH ×5 (09:58→20:31)
[2021-09-18] MEDS: SODIUM CHLOR 0.45% + 20MEQ KCL 20 MEQ/1,000 ML BAG IV SCH (10:51)
--- NOTE | 2021-09-18 12:49 | Hospitalist Progress Note ---
Date of Service September 18, 2021 Assessment & Plan (1) Toxic megacolon due to Clostridioides difficile: Plan: Status post exploratory laparotomy, subtotal colectomy with colostomy On 09/17/2021 He was intubated and successfully extubated this morning 09/18/2021 Appreciate ongoing surgical care Appreciate care from the train dispatcher We will continue current management and he will be transferred to medical telemetry unit (2) Clostridium difficile colitis: Plan: This is an 80 y/o female with a PMH of CAD, chronic respiratory failure with hypoxemia due to asbestosis and COPD (on 2-4 L of oxygen at baseline), HTN, HLD, CKD, and MIGDALIA who presented to the ED with progressive abdominal distention and loss of appetite over the past 2-[address] a/p: Prominent colonic gas without evidence of small bowel obstruction or volvulus. Prominence of the appendix, new from prior exam. Clinical correlation is recommended for acute appendicitis.3. Infrarenal abdominal aortic aneurysm measures 28 mm in diameter, slightly increased from prior exam where it measured 24 mm in diameter. KUB: 09/15: Gaseous distended loops of large and small bowel suggest ileus versus distal obstruction. Continued follow-up recommended KUB 09/17: light increase in gaseous distention of the colon. Mild small bowel dilatation. The findings could reflect an ileus or distal obstruction BC NGTD Cdiff positive C Difficile Colitis Pseudo obstruction wbc 20.91-->32.76k--43.6k PO vanco increased, vanco enemas added along with IV flagyl Plan to go to OR today to ex lap and possible bowel resection NGT with [facility] pharmacy and gi asst consulted for PPN to start post op, will stop fluid when PPN starts continue NPO-diet will be gradually advanced over the weekend as per surgery (3) Acute kidney injury superimposed on CKD: Plan: A/C CKD-3 bun 44/cr 1.35 today monitor daily labs continue IVF-creatinine is slightly improved at 1.41 today (4) Chronic obstructive pulmonary disease: Plan: Chronic respiratory failure with hypoxemia due to COPD/Asbestosis ( 2-4L of O2 at baseline) continue home inhalers stable-continue oxygen for now (5) Chronic respiratory failure with hypoxia: (6) Hypertension: Plan: HTN atenolol on hold and continue verapamil bp stable (7) DVT prophylaxis: Plan: Irregular heart rhythm on exam EKG reveals undetermined rhythm give pt condition and hx of resp failure high risk for afib would recommend telemetry monitoring post op He will be monitored in medical telemetry unit Hypoalbuminemia in setting of acute illness pharmacy and gi asst on board for PPN Will likely restart oral food as soon as possible MIGDALIA 4L of O2 at HS DVT ppx: Lovenox - will place on hold /2 to surgical intervention Dispo: remains admitted, not medically stable for D/C DNR/DNI PCP: Louis Nice Admission and Anticipated Discharge Date Admission Date: September 14, 2021 Subjective 09/18/2021 The patient was seen and examined in ICU He is a status post extubation and has been doing following that Complains some abdominal discomfort and pain Denies any palpitation and/or increasing shortness of breath Review of Systems Review of Systems: All systems reviewed and are unremarkable except as noted below Respiratory: Minimal shortness of breath at rest Gastrointestinal: Abdominal distention and discomfort Physical Exam Physical Exam: Lying in bed with minimal distress due to shortness of breath and abdominal discomfort Constitutional: well developed and well nourished; no acute distress Eyes: + anicteric sclerae Neck: trachea midline Respiratory: + abnormal respiratory effort (mildly increased work of breathing), no respiratory distress and does not use accessory muscles Auscultation: + diminished lung sounds; no rhonchi and no wheezes Cardiovascular: Rate/Rhythm: regular rate and regular rhythm Vessels: radial pulses present Extremities: normal capillary refill; no edema Gastrointestinal (Abdomen): Inspection/Auscultation: + abdomen distended (marked but soft) and + hypoactive bowel sounds Percussion/Palpation: + abdomen tender (minimal diffuse in LQ bilaterally) and + tympanic to percussion; no guarding Status post laparotomy, subtotal colectomy and colostomy Musculoskeletal: Head/Neck/Chest: normocephalic, head atraumatic and neck supple Skin: no jaundice Neurologic: moves all extremities; no focal motor deficits and not confused Psychiatric: A+Ox3, euthymic affect Results & Data Results & Data ([facility]) Vital Signs (Past 12 Hours) Vital Signs Temp Pulse Resp BP Pulse Ox 09/18/21 12:00 101 H 09/18/21 11:20 101 H 30 H 97 09/18/21 11:10 91 H 26 H 97 09/18/21 11:00 113 H 28 H 97/68 L 97 09/18/21 10:53 118 H 152/61 H 09/18/21 10:50 115 H 26 H 97 09/18/21 10:40 108 H 27 H 97 09/18/21 10:30 114 H 30 H 97 09/18/21 10:20 108 H 21 96 09/18/21 10:10 109 H 25 H 97 09/18/21 10:00 110 H 25 H 138/71 97 09/18/21 09:50 106 H 24 97 09/18/21 09:40 106 H 25 H 97 09/18/21 09:30 123 H 27 H 95 09/18/21 09:20 109 H 28 H 96 09/18/21 09:10 109 H 27 H 97 09/18/21 09:00 112 H 24 96 09/18/21 08:50 111 H 25 H 96 09/18/21 08:40 104 H 24 96 09/18/21 08:30 101 H 22 96 09/18/21 08:20 113 H 25 H 96 09/18/21 08:10 113 H 22 96 09/18/21 08:00 103 H 24 97 09/18/21 07:50 111 H 22 97 09/18/21 07:40 110 H 22 97 09/18/21 07:30 103 H 23 97 09/18/21 07:20 106 H 22 97 09/18/21 07:10 108 H 26 H 97 09/18/21 07:00 113 H 23 129/83 97 09/18/21 06:50 105 H 25 H 97 09/18/21 06:40 120 H 25 H 96 09/18/21 06:30 113 H 21 96 09/18/21 06:20 102 H 22 96 09/18/21 06:10 117 H 23 96 09/18/21 06:00 102 H 26 H 96 09/18/21 05:00 37.2 C 101 H 19 93 09/18/21 04:00 37.3 C 90 18 92 09/18/21 03:56 92 H 18 96 09/18/21 03:00 95 H 18 92 09/18/21 02:00 75 18 91 09/18/21 01:00 76 16 94 Laboratory Results Short CBC 09/17/21 09/18/21 Range/Units 13:48 05:46 WBC 36.84 H* 26.53 H D (4.8-10.8) K/uL Hgb 10.0 L 10.5 L (14.0-18.0) g/dL Hct 31.3 L 32.3 L (42-52) % Plt Count 98 L 91 L (130-400) K/uL BMP 09/17/21 09/18/21 13:48 05:46 Sodium 147 H 144 Potassium 4.1 3.7 Chloride 121 H 117 H Carbon Dioxide 18 L 21 BUN 41 H 39 H Creatinine 1.65 H D 1.41 H Glucose 128 H 234 H Calcium 6.8 L 7.5 L Liver Function 09/17/21 Range/Units 13:48 Total Bilirubin 1.0 (0.2-1) mg/dl AST 15 (15-37) U/L ALT 18 (12-78) U/L Alkaline Phosphatase 78 (45-117) U/L Albumin 1.8 L (3.4-5.0) gm/dl Medications Administered Current Inpatient Medications Albuterol (Albuterol Hfa 8 Gm Inhaler) 2 puffs INH Q6R PRN PRN Reason: Wheezing Stop: 10/14/21 19:10 Dextrose (Dextrose 50% 50 Ml Syringe) 25 - 50 ml IV UD PRN; Protocol PRN Reason: Hypoglycemia Protocol Stop: 10/18/21 05:57 Enoxaparin Sodium (Enoxaparin Inj 40 Mg/0.4 Ml Syr) 40 mg SQ QAM OMID Stop: 10/16/21 08:59 Last Admin: 09/18/21 09:09 Dose: 40 mg Documented by: Fentanyl Citrate (Fentanyl Citrate 100 Mcg/2 Ml Vial) 50 mcg IV Q2H PRN PRN Reason: Pain Stop: 10/02/21 06:00 Fluticasone/Vilanterol (Fluticasone/Vilanterol 100/25mcg 14 Puffs/Inhaler) 1 puffs INH DAILY OMID; Protocol Stop: 10/15/21 08:59 Last Admin: 09/18/21 09:10 Dose: 1 puffs Documented by: Glucagon (Glucagon For Inj 1 Mg Vial) 1 mg SQ UD PRN; Protocol PRN Reason: Hypoglycemia Protocol Stop: 10/18/21 05:57 Glucose (Glucose 10 Tabs/Tube) 4 - 8 tabs PO UD PRN; Protocol PRN Reason: Hypoglycemia Protocol Stop: 10/18/21 05:57 Glucose (Glucose 40% Gel 15 Gm Tube) 15 - 30 gm PO UD PRN; Protocol PRN Reason: Hypoglycemia Protocol Stop: 10/18/21 05:57 Metronidazole (Flagyl) 500 mg in 100 mls @ 100 mls/hr IV Q8H OMID Stop: 09/26/21 09:59 Last Infusion: 09/18/21 11:07 Dose: Infused Documented by: Piperacillin Sod/Tazobactam (Sod 3.375 gm/ Dextrose) 115 mls @ 28.75 mls/hr IV Q8H OMID; Protocol Stop: 09/27/21 19:59 Last Admin: 09/18/21 11:59 Dose: 28.8 mls/hr Documented by: Sodium Phosphate 12 mmol/ (Sodium Chloride) 504 mls @ 88 mls/hr IV NOW ONE Stop: 09/18/21 14:43 Last Admin: 09/18/21 09:09 Dose: 88 mls/hr Documented by: Potassium Chloride/Sodium Chloride (1/2 Nss + 20meq Kcl 1000ml) 20 meq in 1,000 mls @ 50 mls/hr IV .Q20H OMID Stop: 10/18/21 10:29 Last Admin: 09/18/21 10:51 Dose: 50 mls/hr Documented by: Insulin Aspart (Insulin Aspart 100 Units/Ml 3 Ml Pen) 0 units SC Q4 OMID Stop: 10/18/21 07:29 Last Admin: 09/18/21 12:05 Dose: 1 units Documented by: Lansoprazole (Lansoprazole 30 Mg Soltab) 30 mg PO QAM OMID Stop: 10/17/21 14:44 Last Admin: 09/18/21 09:10 Dose: 30 mg Documented by: Metoprolol Tartrate (Metoprolol Tartrate 1 Mg/Ml Vial) 5 mg IV Q5M PRN PRN Reason: Tachycardia HR >100 Last Admin: 09/18/21 10:53 Dose: 5 mg Documented by: Metoprolol Tartrate (Metoprolol Tartrate 25 Mg Tab) 12.5 mg PO BID OMID Stop: 10/18/21 08:59 Last Admin: 09/18/21 09:09 Dose: 12.5 mg Documented by: Miscellaneous (Carbohydrates For Hypoglycemia ) 15 - 30 gm PO UD PRN PRN Reason: Hypoglycemia Protocol Stop: 10/18/21 05:57 Miscellaneous Information (Piperacill/Tazobac Consult Active) 1 ea N/A UD PRN PRN Reason: Consult Stop: 10/17/21 13:37 Miscellaneous Information (Pharmacy Glycemic Mgmt Consult) 1 ea N/A UD PRN; Protocol PRN Reason: Consult Stop: 10/18/21 05:57 Raspberry (Raspberry Syrup 5 Ml Udp) 5 ml PO Q6H OMID Stop: 09/26/21 09:59 Last Admin: 09/18/21 10:51 Dose: 5 ml Documented by: Umeclidinium [place] (Umeclidinium [place] 62.5mcg/Blister 7 Puffs/Inhaler) 1 puffs INH DAILY [facility]; Protocol Stop: 10/15/21 08:59 Last Admin: 09/18/21 09:10 Dose: 1 puffs Documented by: Vancomycin HCl (Vancomycin Hcl 500 Mg/10 Ml Soln) 500 mg PO Q6H OMID Stop: 09/26/21 09:59 Last Admin: 09/18/21 10:51 Dose: 500 mg Documented by:
--- NOTE | 2021-09-18 13:37 | Pharmacy Report ---
Pharmacy Glycemic Short Note 2 - Date of Service September 18, 2021 - Glycemic Short BSG Results (Last 24 hours): 09/17/21 09/17/21 09/18/21 13:48 23:21 05:46 Glucose 128 H 234 H POC Glucose 199 H 09/18/21 09/18/21 09/18/21 05:56 07:57 12:02 Glucose POC Glucose 197 H 211 H 178 H OUTPATIENT ANTIDIABETIC REGIMEN: * N/A * A1c pending ASSESSMENT: * 80 yo transferred to ICU following subtotal colectomy 09/17 for C. diff colitis and toxic megacolon. Patient was started on dextrose containing fluid for hypernatremia BSGs mildly elevated into low 200s this morning, glycemic consult per ICU protocol. Patient not currently on outpatient diabetes medications, new A1c pending. Na trending down, IVF changed to 1/2NS+ 20K @ 50 ml/hr with improvement in BSG. Patient is currently NPO with plans to advance diet through the weekend per surgery. * Started weight based stress of 2 novolog parameters, will hold off on basal insulin at this time as patient NPO, improvement in BSGS but will set scale for PM should BSGs trend upward again. PLAN FOR INPATIENT GLYCEMIC CONTROL: * Hold outpatient oral diabetes medications * Basal insulin * Lantus 0/10 units SQ BID * Bolus insulin * NovoLog per scale ACHS or Q6hrs while NPO * Goal Range: Low 120 mg/dL - High 160 mg/dL * Correction Factor: 25 mg/dL/unit * Nutritional / Prandial insulin per carb ratio of 1 unit per 8 grams CHO consumed
[2021-09-18] MEDS ORDERED: STAT IV Infusion **Titration per Protocol STA (14:51)
[2021-09-18] MEDS ORDERED: AMIODARONE IV BOLUS & DRIP IV STA (14:51)
[2021-09-18] MEDS ORDERED: 0.2 MICRON FILTER SET 1 EA IV ONE (14:51)
[2021-09-18] MEDS ORDERED: AMIODARONE / D5W 150 MG/100 ML BAG IV STA (14:58)
[2021-09-18] MEDS ORDERED: AMIODARONE / D5W 360 MG/200 ML BAG IV ONE (15:01)
--- NOTE | 2021-09-18 15:35 | Electrocardiogram Report ---
Test Reason : Blood Pressure : / mmHG Vent. Rate : 089 BPM Atrial Rate : 104 BPM P-R Int : 000 ms QRS Dur : 116 ms QT Int : 394 ms P-R-T Axes : 091 -21 104 degrees QTc Int : 479 ms Atrial fibrillation with premature ventricular or aberrantly conducted complexes Poor R wave progression, consider anterior ID vs. lead placement vs. LVH T wave abnormality, consider lateral ischemia Abnormal ECG When compared with ECG of 07-NOV-2020 20:55, Atrial fibrillation has replaced Sinus rhythm Confirmed by Wale Cohen ([id number]) on 09/18/2021 3:34:37 PM Referred By: Fouzia [facility] Confirmed By:Wale Cohen
--- NOTE | 2021-09-18 17:36 | Cardiology Consultation ---
Date of Consultation September 18, 2021 Assessment & Plan (1) Atrial fibrillation: (2) CAD (coronary artery disease): ASSESSMENT/PLAN: 1. Atrial fibrillation: Newly diagnosed. Cannot exclude history of paroxysmal AFib but based on timing, likely postop AFib. There are reports that he may have had atrial fibrillation while critically ill just before surgery, however no rhythm strips are available for review. Atrial fibrillation while critically ill would also not be unexpected. Recommended amiodarone drip as he is well within 48 hours of documented onset, to hopefully convert him to sinus rhythm. Anticoagulation therapy is currently contraindicated as per surgical team. Would initiate anticoagulation therapy when safe from a surgical standpoint and no contraindications. Hopefully, amiodarone therapy can be transient throughout the acute setting and for short period of time as an outpatient. 2. CAD s/p [place] and angioplasty in 1990: No angina. Continue beta-beti. Resume statin therapy when able. 3. Disposition: Plan of care discussed with Dr. Hutchinson and nursing staff of the critical care team. Dr. Milner will be continuing cardiology care tomorrow as I will be away from the hospital. Patient would like to follow-up with Dr. Tamayo, who he has seen many years ago, upon discharge. Thank you for allowing me to participate in the care of your patient. Please call for any other questions or concerns. Sincerely, Geoff Cohen M.D. History of Present Illness Reason for Consultation: Atrial fibrillation Requesting Physician: Dr. Hutchinson Attending Physician: Adelso Finney MD History of Present Illness Mr. Silverman is a pleasant 80-year-old gentleman with a history significant for CAD and OK s/p angioplasty (February of 1991 at [facility]), hypertension, dyslipidemia, CKD, chronic respiratory failure with hypoxemia due to asbestosis and COPD (supplemental O2 2-4 L). 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 Tamayo. He was last seen by Dr. Tamayo in 2006 according to available records. He was admitted on 09/14/2021 with abdominal complaints and found to have C diff colitis with toxic megacolon. He underwent exploratory laparotomy with subtotal colectomy on 09/17/[address] Chau. He was then transferred to the ICU on mechanical ventilation. There was no ECG done on presentation for review, but ECG on 09/17/2021 demonstrated atrial fibrillation. He was noted to be in sinus rhythm while in the ICU until 2:09 a.m. on the 09/18/2021 when he developed atrial fibrillation. When he was seen this morning, he had already been extubated. Hedenies any history of atrial fibrillation. He denies chest pain, syncope, near-syncope, or palpitations. He has chronic shortness of breath but feels better today. He acknowledged that there was pain in his abdomen at the surgical site. He was NPO for medications and received atenolol on 09/15/2021 and then was without oral beta-beti until today when metoprolol tartrate was initiated at 12.5 mg. He chronically takes verapamil for hypertension and his last dose was 09/16/2021. Review of systems: As above. Review of systems otherwise negative/unremarkable. Family history: He does not recall premature CAD in first-degree relatives. Social history: Quit smoking approximately 20 years ago. Has smoked approximately 20 pack years. Occasional alcohol. He was unaccompanied in the ICU. Allergies Allergy/AdvReac Type Severity Reaction Status Date / Time diltiazem [From [facility]] Allergy Severe hives Verified 09/14/21 14:36 telmisartan Allergy Unknown Unknown Verified 09/14/21 14:36 Home Medications Medication Instructions Recorded Confirmed Type aspirin 81 mg tablet,delayed 81 mg PO HS 08/04/19 09/14/21 History release atenolol 25 mg tablet 25 mg PO BID #180 tab 12/25/20 09/14/21 Rx celecoxib 200 mg capsule (Celebrex) 200 mg PO BID #180 cap 12/25/20 09/14/21 Rx simvastatin 40 mg tablet 40 mg PO HS #90 tab 01/17/21 09/14/21 Rx mometasone-formoterol HFA 200 2 puff INHALATION BID #3 inhaler 02/19/21 09/14/21 Rx mcg-5 mcg/actuation aerosol inhaler (Dulera) tiotropium bromide 18 mcg capsule See Rx Instructions .ROUTE 07/12/21 09/14/21 Rx with inhalation device (Spiriva .COMPLEX #90 capsule with HandiHaler) albuterol sulfate 90 mcg/actuation 2 puff INHALATION Q6 PRN 09/14/21 09/14/21 History aerosol inhaler (Ventolin HFA) ondansetron 4 mg disintegrating 4 mg PO Q4 PRN 09/14/21 09/14/21 History tablet verapamil 360 mg 24 hr 360 mg PO QAM 09/14/21 09/14/21 History capsule,extended release Patient History Medical History Abdominal pain Anemia Asbestosis Benign prostatic disease CAD (coronary artery disease) Chronic kidney disease Chronic obstructive pulmonary disease Chronic respiratory failure with hypoxia Dehydration Emphysematous bleb Hyperlipidemia Hypertension Impaired fasting glucose Obstructive sleep apnea Pleural effusion on right Pleural plaque with presence of asbestos Pulmonary nodule Surgical History (Updated 09/18/21 @ 09:16 by Susan Astorga RN) H/O colonoscopy History of cataract surgery History of shoulder surgery right shoulder surgery S/P laparotomy (09/17/21) 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 Dr. Lutz 09/17/2021 Family History Father Emphysema, unspecified Brother Cancer Mother Glaucoma Cancer skin Sister Renal failure Denies family history of Ovarian cancer Prostate cancer Myocardial infarction Breast cancer Colorectal cancer Social History Smoking Status: Former smoker Tobacco Type: Cigarettes Age Started Using Tobacco: 15; Age Quit Using Tobacco: 49; packs per day: 1; Second Hand Exposure: No; Hx Alcohol Use: Yes Alcohol type: beer Alcohol Intake Frequency Comment: has a couple once a week Hx Substance Use: Yes Preferred Language: [place] Communication Ability: Effective Visual Impairment: No Limitations Hearing Ability: Normal Organ Pipe Voicer Required: No Beliefs That Will Affect Care: None marital status: Current Living Situation: Spouse and Personal Care Facility Current Living Situation Comment: recently moved from [facility] to [facility] current occupational status: retired 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 Alert and oriented. HEENT: Anicteric sclera. Neck: No appreciable JVD. No bruits. Normal carotid upstrokes bilaterally. Cardiac: PMI was nonpalpable. No ventricular heave. Irregularly irregular. Normal S1-S2. No murmurs, rubs, or gallops. Pulmonary: Decreased breath sounds bilaterally, but otherwise clear to auscultation bilaterally without wheezes, rales, or rhonchi. Abdomen: Surgical dressing in place. Ileostomy site noted. Extremities: 2+ radial pulses bilaterally. 2+ posterior tibialis pulses bilaterally. 1+ bilateral lower extremity edema. No cyanosis. Psychiatric: Affect appears appropriate. Results & Data ([facility]) Vital Signs (Past 12 Hours) Vital Signs Temp Pulse Pulse Resp BP BP Pulse Ox 09/18/21 16:00 37.0 C 117 H 118 H 20 121/62 93 09/18/21 14:00 09/18/21 12:39 09/18/21 12:00 36.8 C 101 H 108 H 18 145/59 H 95 09/18/21 11:20 101 H 30 H 97 09/18/21 11:10 91 H 26 H 97 09/18/21 11:00 113 H 28 H 97/68 L 97 09/18/21 10:53 118 H 152/61 H 09/18/21 10:50 115 H 26 H 97 09/18/21 10:40 108 H 27 H 97 09/18/21 10:30 114 H 30 H 97 09/18/21 10:20 108 H 21 96 09/18/21 10:10 109 H 25 H 97 09/18/21 10:00 110 H 25 H 138/71 97 09/18/21 09:50 106 H 24 97 09/18/21 09:40 106 H 25 H 97 09/18/21 09:30 123 H 27 H 95 09/18/21 09:20 109 H 28 H 96 09/18/21 09:10 109 H 27 H 97 09/18/21 09:00 112 H 24 96 09/18/21 08:50 111 H 25 H 96 09/18/21 08:40 104 H 24 96 09/18/21 08:30 101 H 22 96 09/18/21 08:20 113 H 25 H 96 09/18/21 08:10 113 H 22 96 09/18/21 08:00 103 H 24 97 09/18/21 07:50 111 H 22 97 09/18/21 07:40 110 H 22 97 09/18/21 07:30 103 H 23 97 09/18/21 07:20 106 H 22 97 09/18/21 07:10 108 H 26 H 97 09/18/21 07:00 113 H 23 129/83 97 09/18/21 06:50 105 H 25 H 97 09/18/21 06:40 120 H 25 H 96 09/18/21 06:30 113 H 21 96 09/18/21 06:20 102 H 22 96 09/18/21 06:10 117 H 23 96 09/18/21 06:00 102 H 26 H 96 Pulse Ox 09/18/21 16:00 09/18/21 14:00 94 09/18/21 12:39 96 09/18/21 12:00 09/18/21 11:20 09/18/21 11:10 09/18/21 11:00 09/18/21 10:53 09/18/21 10:50 09/18/21 10:40 09/18/21 10:30 09/18/21 10:20 09/18/21 10:10 09/18/21 10:00 09/18/21 09:50 09/18/21 09:40 09/18/21 09:30 09/18/21 09:20 09/18/21 09:10 09/18/21 09:00 09/18/21 08:50 09/18/21 08:40 09/18/21 08:30 09/18/21 08:20 09/18/21 08:10 09/18/21 08:00 98 09/18/21 07:50 09/18/21 07:40 09/18/21 07:30 09/18/21 07:20 09/18/21 07:10 09/18/21 07:00 09/18/21 06:50 09/18/21 06:40 09/18/21 06:30 09/18/21 06:20 09/18/21 06:10 09/18/21 06:00 Laboratory Results Laboratory Results - last 24 hr 09/17/21 09/18/21 09/18/21 23:21 05:46 05:46 WBC 26.53 H D RBC 3.38 L Hgb 10.5 L Hct 32.3 L MCV 95.6 MCH 31.1 MCHC 32.5 RDW Std Deviation 54.2 H RDW Coeff of Jaiorn 15.5 H Plt Count 91 L MPV 12.7 H Immature Gran % (Auto) 3.0 Neut % (Auto) 87.5 Lymph % (Auto) 4.9 [place] % (Auto) 4.5 Eos % (Auto) 0.0 Baso % (Auto) 0.1 Neut # (Auto) 23.22 H Lymph # (Auto) 1.31 [place] # (Auto) 1.19 H Eos # (Auto) 0.00 Baso # (Auto) 0.02 Immature Gran # (Auto) 0.79 H Echinocytes 1+ Sodium 144 Potassium 3.7 Chloride 117 H Carbon Dioxide 21 Anion Gap 6.0 BUN 39 H Creatinine 1.41 H Est Cr Clr Drug Dosing 44.9 Est GFR ( Amer) 53.8 Est GFR (Non-Af Amer) 46.4 BUN/Creatinine Ratio 27.4 H Glucose 234 H POC Glucose 199 H Calcium 7.5 L Phosphorus 1.7 L D Magnesium 2.5 H Triglycerides 159 H 09/18/21 09/18/21 09/18/21 05:56 07:57 12:02 WBC RBC Hgb Hct MCV MCH MCHC RDW Std Deviation RDW Coeff of Jairon Plt Count MPV Immature Gran % (Auto) Neut % (Auto) Lymph % (Auto) [place] % (Auto) Eos % (Auto) Baso % (Auto) Neut # (Auto) Lymph # (Auto) [place] # (Auto) Eos # (Auto) Baso # (Auto) Immature Gran # (Auto) Echinocytes Sodium Potassium Chloride Carbon Dioxide Anion Gap BUN Creatinine Est Cr Clr Drug Dosing Est GFR ( Amer) Est GFR (Non-Af Amer) BUN/Creatinine Ratio Glucose POC Glucose 197 H 211 H 178 H Calcium Phosphorus Magnesium Triglycerides 09/18/21 15:27 WBC RBC Hgb Hct MCV MCH MCHC RDW Std Deviation RDW Coeff of Jairon Plt Count MPV Immature Gran % (Auto) Neut % (Auto) Lymph % (Auto) [place] % (Auto) Eos % (Auto) Baso % (Auto) Neut # (Auto) Lymph # (Auto) [place] # (Auto) Eos # (Auto) Baso # (Auto) Immature Gran # (Auto) Echinocytes Sodium Potassium Chloride Carbon Dioxide Anion Gap BUN Creatinine Est Cr Clr Drug Dosing Est GFR ( Amer) Est GFR (Non-Af Amer) BUN/Creatinine Ratio Glucose POC Glucose 150 H Calcium Phosphorus Magnesium Triglycerides Diagnostic Findings Telemetry personally reviewed: Sinus rhythm converting to atrial fibrillation at 2:09 a.m. on 09/18/2021. ECG personally reviewed: ECG 09/17/2021: AFib 89 beats per minute. Poor R-wave progression. Lateral T- wave inversion. ECG 09/18/2021: AFib 98 beats per minute. Poor R-wave progression. Lateral T- wave inversion. Chart reviewed. Medications Administered Current Inpatient Medications Albuterol (Albuterol Hfa 8 Gm Inhaler) 2 puffs INH Q6R PRN PRN Reason: Wheezing Stop: 10/14/21 19:10 Dextrose (Dextrose 50% 50 Ml Syringe) 25 - 50 ml IV UD PRN; Protocol PRN Reason: Hypoglycemia Protocol Stop: 10/18/21 05:57 Enoxaparin Sodium (Enoxaparin Inj 40 Mg/0.4 Ml Syr) 40 mg SQ QAM [facility]ID Stop: 10/16/21 08:59 Last Admin: 09/18/21 09:09 Dose: 40 mg Documented by: Fluticasone/Vilanterol (Fluticasone/Vilanterol 100/25mcg 14 Puffs/Inhaler) 1 puffs INH DAILY OMID; Protocol Stop: 10/15/21 08:59 Last Admin: 09/18/21 09:10 Dose: 1 puffs Documented by: Glucagon (Glucagon For Inj 1 Mg Vial) 1 mg SQ UD PRN; Protocol PRN Reason: Hypoglycemia Protocol Stop: 10/18/21 05:57 Glucose (Glucose 10 Tabs/Tube) 4 - 8 tabs PO UD PRN; Protocol PRN Reason: Hypoglycemia Protocol Stop: 10/18/21 05:57 Glucose (Glucose 40% Gel 15 Gm Tube) 15 - 30 gm PO UD PRN; Protocol PRN Reason: Hypoglycemia Protocol Stop: 10/18/21 05:57 Metronidazole (Flagyl) 500 mg in 100 mls @ 100 mls/hr IV Q8H [facility]ID Stop: 09/26/21 09:59 Last Infusion: 09/18/21 11:07 Dose: Infused Documented by: Piperacillin Sod/Tazobactam (Sod 3.375 gm/ Dextrose) 115 mls @ 28.75 mls/hr IV Q8H [facility]; Protocol Stop: 09/27/21 19:59 Last Infusion: 09/18/21 16:09 Dose: Infused Documented by: Potassium Chloride/Sodium Chloride (1/2 Nss + 20meq Kcl 1000ml) 20 meq in 1,000 mls @ 50 mls/hr IV .Q20H [facility]ID Stop: 10/18/21 10:29 Last Admin: 09/18/21 10:51 Dose: 50 mls/hr Documented by: Amiodarone HCl/Dextrose (Nexterone / D5w) 360 mg in 200 mls @ 16.667 mls/hr IV .Q12H [facility] Stop: 10/18/21 20:59 Amiodarone HCl/Dextrose (Nexterone / D5w) 360 mg in 200 mls @ 33.333 mls/hr IV ONE ONE Stop: 09/18/21 21:00 Last Admin: 09/18/21 15:46 Dose: 33.3 mls/hr, 33.3 mls/hr Documented by: Insulin Aspart (Insulin Aspart 100 Units/Ml 3 Ml Pen) 0 units SC Q4 [facility] Stop: 10/18/21 07:29 Last Admin: 09/18/21 15:27 Dose: Not Given Documented by: Insulin Glargine (Insulin Glargine Solostar 100 Units/Ml 3 Ml Pen) 0 units SC HS ONE; Protocol Stop: 09/18/21 21:01 Lansoprazole (Lansoprazole 30 Mg Soltab) 30 mg PO QAM [facility] Stop: 10/17/21 14:44 Last Admin: 09/18/21 09:10 Dose: 30 mg Documented by: Metoprolol Tartrate (Metoprolol Tartrate 25 Mg Tab) 12.5 mg PO BID [facility] Stop: 10/18/21 08:59 Last Admin: 09/18/21 09:09 Dose: 12.5 mg Documented by: Miscellaneous (Carbohydrates For Hypoglycemia ) 15 - 30 gm PO UD PRN PRN Reason: Hypoglycemia Protocol Stop: 10/18/21 05:57 Miscellaneous Information (Piperacill/Tazobac Consult Active) 1 ea N/A UD PRN PRN Reason: Consult Stop: 10/17/21 13:37 Miscellaneous Information (Pharmacy Glycemic Mgmt Consult) 1 ea N/A UD PRN; Protocol PRN Reason: Consult Stop: 10/18/21 05:57 Raspberry (Raspberry Syrup 5 Ml Udp) 5 ml PO Q6H [facility] Stop: 09/26/21 09:59 Last Admin: 09/18/21 15:18 Dose: 5 ml Documented by: Umeclidinium [place] (Umeclidinium [place] 62.5mcg/Blister 7 Puffs/Inhaler) 1 puffs INH DAILY [facility]; Protocol Stop: 10/15/21 08:59 Last Admin: 09/18/21 09:10 Dose: 1 puffs Documented by: Vancomycin HCl (Vancomycin Hcl 500 Mg/10 Ml Soln) 500 mg PO Q6H [facility] Stop: 09/26/21 09:59 Last Admin: 09/18/21 15:18 Dose: 500 mg Documented by: PG Care Time/CCT Total # of Minutes Spent Total Time Spent with Patient: Total time spent is greater than 50% in coordination of care (as documented) at patient's floor/unit and/or counseling patient: Coding Level of Care Code 46270 Initial Inpt Care Lvl 3 Diagnoses Atrial fibrillation I48.91 CAD (coronary artery disease) I25.10
[2021-09-18] MEDS ORDERED: INSULIN GLARGINE SOLOSTAR 100 UNITS/ML 3 ML PEN SC ONE (21:00)
[2021-09-18] MEDS: AMIODARONE / D5W 360 MG/200 ML BAG IV SCH (21:05)
[2021-09-18] MEDS ORDERED: MoRPHine SULFATE 2 MG/ML CARP ONE (23:00)
[2021-09-19] MEDS: INSULIN ASPART 100 UNITS/ML 3 ML PEN SC SCH ×6 (00:40→21:23)
[2021-09-19] MEDS: metroNIDAZOLE 500 MG/100 ML BAG IV SCH ×3 (02:16→16:53)
[2021-09-19] MEDS: MoRPHine SULFATE 2 MG/ML CARP IV PRN ×4 (02:17→21:25)
[2021-09-19] MEDS: PIPERACILLIN/TAZOBACTAM 3.375 GM in DEXTROSE 5% 100 ML IV SCH ×3 (04:14→21:18)
[2021-09-19] MEDS: VANCOMYCIN HCL 500 MG/10 ML SOLN PO SCH ×4 (04:15→21:20)
[2021-09-19] MEDS: RASPBERRY SYRUP 5 ML UDP PO SCH ×4 (04:15→21:20)
--- NOTE | 2021-09-19 06:11 | Surgery Progress Note ---
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 status for the present time (other than occasional ice chips); as noted previously by Dr. Chau diet advancement will be a slow process. Continue IV fluid for hydration Continue analgesics Continue antiemetics Continue antibiotics:Patient is receiving intravenous Flagyl, intravenous Zosyn, and oral vancomycin Check a.m. labs when available Continue amiodarone for postoperative A. fib Mobilize as able Encourage use of incentive spirometry Lovenox is in place for DVT prevention as above. if stoma continues increasing output will pull ngt and begin liquids soon. otherwise doing ok/as expected Admission and Anticipated Discharge Date Admission Date: September 14, 2021 Subjective Patient is resting in bed. He notes pain at his surgical incision. He denies any nausea vomiting. He denies any shortness of breath. He denies any fevers, shakes, chills. I discussed with the shift superintendent RN. She notes patient's ostomy is starting to function. She does not note any acute issues at this time. Physical Exam Gastrointestinal (Abdomen): Abdomen is mildly distended. Bowel sounds are hypoactive. Patient's ostomy appears viable. There is a small amount of brown feculent material in the collection bag. There is also gas noted in the collection bag. Appropriate tenderness noted at surgical incision. Incision is intact with oneal and retention sutures. There is a small amount of bloody drainage on his dressing. 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
[2021-09-19 06:23] LABS: BUN Creatinine Ratio 25.4 (10-20); Calcium 7.9 mg/dl (8.5-10.1); Creatinine Clr Calc Pharmacy 55.1 ml/min; Est GFR (African American) 68.8 ml/min; Est GFR (Non-African American) 59.4 ml/min; Magnesium 2.4 mg/dl (1.8-2.4)
--- NOTE | 2021-09-19 06:40 | Electrocardiogram Report ---
Test Reason : Blood Pressure : / mmHG Vent. Rate : 098 BPM Atrial Rate : 091 BPM P-R Int : 000 ms QRS Dur : 116 ms QT Int : 364 ms P-R-T Axes : 000 -38 104 degrees QTc Int : 464 ms Atrial fibrillation Left axis deviation Poor R wave progression, consider anterior IN vs. lead placement vs. LVH T wave abnormality, consider lateral ischemia Abnormal ECG When compared with ECG of 17-SEP-2021 09:11, No significant change Confirmed by Wale Cohen ([id number]) on 09/19/2021 6:40:10 AM Referred By: Fouzia Myers [place] Confirmed By:Wale Cohen
[2021-09-19 06:50] LABS: Phosphorus 1.2 mg/dl (2.5-4.9)
[2021-09-19 06:51] LABS: Hematocrit (blood only) 31.3 % (42-52); Hemoglobin 10.3 g/dL (14.0-18.0); Mean Corpuscular Hemoglobin 30.9 pg (25-34); Mean Corpuscular Hgb Conc 32.9 g/dL (32-36); Platelet Count 66 K/uL (130-400); RDW Coefficient of Variation 15.6 % (11.5-14.5); RDW Standard Deviation 53.7 fL (36.4-46.3); Red Blood Count 3.33 M/uL (4.7-6.1); White Blood Count 22.62 K/uL (4.8-10.8)
[2021-09-19 06:52] LABS: ANC (manual) 19.45 K/uL (1.4-6.5); Hypogranular Neutrophils 1+; Lymphocytes % (manual) 0.9 %; Metamyelocytes % (manual) 0.9 %; Monocytes # (manual) 1.18 K/uL (0.11-0.59); Monocytes % (manual) 5.2 %; Myelocytes # (manual) 1.58 K/uL (0-0); Neutrophils # (manual) 19.45 K/uL (1.4-6.5)
[2021-09-19] MEDS ORDERED: SODIUM PHOSPHATE 3 MMOL/1 ML 5 ML VIAL IV ONE (07:35)
[2021-09-19] MEDS: SODIUM CHLOR 0.45% + 20MEQ KCL 20 MEQ/1,000 ML BAG IV SCH (07:42)
[2021-09-19] MEDS: ENOXAPARIN INJ 40 MG/0.4 ML SYR SQ SCH (07:44)
[2021-09-19] MEDS ORDERED: SODIUM PHOSPHATE 30 MMOL in SODIUM CHLORIDE 0.9% 500 ML IV ONE (07:45)
[2021-09-19] MEDS: LANSOPRAZOLE 30 MG SOLTAB PO SCH (07:47)
[2021-09-19] MEDS: UMECLIDINIUM BROMIDE 62.5MCG/BLISTER 7 PUFFS/INHALER INH SCH (07:48)
[2021-09-19] MEDS: FLUTICASONE/VILANTEROL 100/25MCG 14 PUFFS/INHALER INH SCH (07:49)
[2021-09-19] MEDS: AMIODARONE / D5W 360 MG/200 ML BAG IV SCH ×2 (09:14→21:18)
[2021-09-19] MEDS: METOPROLOL TARTRATE 25 MG TAB PO SCH ×2 (09:14→21:20)
--- NOTE | 2021-09-19 09:38 | Cardiology Progress Note ---
Date of Service September 19, 2021 Assessment & Plan (1) Atrial fibrillation: (2) CAD (coronary artery disease): Plan: ASSESSMENT/PLAN: 1. Atrial fibrillation: He has returned to a sinus rhythm. When his amiodarone infusion is complete we can initiate oral therapy. We will started 400 mg twice daily and reduce this in the next few days to 200 mg daily. I do not believe he will require this for more than a few weeks. Hopefully this will prevent any return to atrial fibrillation. I think a period of anticoagulation would also be reasonable once he is felt to be safe from a surgical standpoint, we could consider starting an oral anticoagulant. 2. CAD s/p [place] and angioplasty in 1990: No angina. Continue beta-beti. Resume statin therapy when able. Admission and Anticipated Discharge Date Admission Date: September 14, 2021 Subjective This morning the patient reported some discomfort at the operative site. He has no appetite he has not been ambulatory. Physical Exam Physical Exam: Gen.: No acute distress. Alert and oriented. HEENT: Anicteric sclera. Cardiac: No ventricular heave. Regular rhythm. Normal S1-S2. No murmurs, rubs, or gallops. Pulmonary: Normal respiratory effort. Abdomen: Surgical dressing in place. Extremities: 2+ radial pulses bilaterally. 2+ posterior tibialis pulses bilaterally. No cyanosis. Psychiatric: Affect appears appropriate. Results & Data ([facility]) Vital Signs (Past 12 Hours) Vital Signs Temp Pulse Pulse Resp BP BP Pulse Ox 09/19/21 08:05 36.5 C 90 32 H 154/72 H 95 09/19/21 06:00 93 H 23 156/75 H 94 09/19/21 05:00 89 26 H 149/69 H 95 09/19/21 04:00 37 C 87 18 145/67 H 95 09/19/21 03:00 86 20 153/67 H 95 09/19/21 02:00 87 19 141/71 H 95 09/19/21 01:00 87 25 H 154/66 H 95 09/19/21 00:00 37.3 C 86 23 146/66 H 95 09/18/21 23:00 85 26 H 142/64 H 95 09/18/21 22:00 91 H 30 H 145/71 H 91 Laboratory Results Abnormal Lab Results 09/18/21 09/18/21 09/18/21 12:02 15:27 19:48 WBC RBC Hgb Hct MCV MCH MCHC RDW Std Deviation RDW Coeff of Jairon Plt Count MPV Neutrophils % (Manual) Lymphocytes % (Manual) Monocytes % (Manual) Metamyelocytes % (Man) Myelocytes % (Man) Neutrophils # (Manual) Total Absolute Neuts Lymphocytes # (Manual) Total Abs Lymphocytes Monocytes # (Manual) Metamyelocytes # (Man) Myelocytes # (Manual) Hypogranular Neuts Sodium Potassium Chloride Carbon Dioxide Anion Gap BUN Creatinine Est Cr Clr Drug Dosing Est GFR ( Amer) Est GFR (Non-Af Amer) BUN/Creatinine Ratio Glucose POC Glucose 178 H 150 H 159 H Calcium Phosphorus Magnesium 09/19/21 09/19/21 09/19/21 00:11 04:18 05:23 WBC RBC Hgb Hct MCV MCH MCHC RDW Std Deviation RDW Coeff of Jairon Plt Count MPV Neutrophils % (Manual) Lymphocytes % (Manual) Monocytes % (Manual) Metamyelocytes % (Man) Myelocytes % (Man) Neutrophils # (Manual) Total Absolute Neuts Lymphocytes # (Manual) Total Abs Lymphocytes Monocytes # (Manual) Metamyelocytes # (Man) Myelocytes # (Manual) Hypogranular Neuts Sodium 144 Potassium 4.0 Chloride 117 H Carbon Dioxide 24 Anion Gap 3.0 BUN 29 H Creatinine 1.15 Est Cr Clr Drug Dosing 55.1 Est GFR ( Amer) 68.8 Est GFR (Non-Af Amer) 59.4 BUN/Creatinine Ratio 25.4 H Glucose 138 H POC Glucose 125 H 126 H Calcium 7.9 L Phosphorus 1.2 L* Magnesium 2.4 09/19/21 09/19/21 05:23 08:08 WBC 22.62 H RBC 3.33 L Hgb 10.3 L Hct 31.3 L MCV 94.0 MCH 30.9 MCHC 32.9 RDW Std Deviation 53.7 H RDW Coeff of Jairon 15.6 H Plt Count 66 L MPV 13.0 H Neutrophils % (Manual) 86.0 Lymphocytes % (Manual) 0.9 Monocytes % (Manual) 5.2 Metamyelocytes % (Man) 0.9 Myelocytes % (Man) 7.0 Neutrophils # (Manual) 19.45 H Total Absolute Neuts 19.45 H Lymphocytes # (Manual) 0.20 L Total Abs Lymphocytes 0.20 L Monocytes # (Manual) 1.18 H Metamyelocytes # (Man) 0.20 H Myelocytes # (Manual) 1.58 H Hypogranular Neuts 1+ Sodium Potassium Chloride Carbon Dioxide Anion Gap BUN Creatinine Est Cr Clr Drug Dosing Est GFR ( Amer) Est GFR (Non-Af Amer) BUN/Creatinine Ratio Glucose POC Glucose 121 H Calcium Phosphorus Magnesium PG Care Time/CCT Total # of Minutes Spent Total Time Spent with Patient: Total time spent is greater than 50% in coordination of care (as documented) at patient's floor/unit and/or counseling patient: Coding Level of Care Code 72670 Subseq Hosp Care Lvl 2 Diagnoses Atrial fibrillation I48.91 CAD (coronary artery disease) I25.10
--- NOTE | 2021-09-19 14:13 | Hospitalist Progress Note ---
Date of Service September 19, 2021 Assessment & Plan (1) Toxic megacolon due to Clostridioides difficile: Plan: Status post exploratory laparotomy, subtotal colectomy with colostomy On 09/17/2021 He was intubated and successfully extubated this morning 09/18/2021 Appreciate ongoing surgical care Appreciate care from the level designer We will continue current management and he will be transferred to medical telemetry unit (2) Atrial fibrillation: (3) CAD (coronary artery disease): (4) Clostridium difficile colitis: Plan: This is an 80 y/o female with a PMH of CAD, chronic respiratory failure with hypoxemia due to asbestosis and COPD (on 2-4 L of oxygen at baseline), HTN, HLD, CKD, and MIGDALIA who presented to the ED with progressive abdominal distention and loss of appetite over the past 2-[address] a/p: Prominent colonic gas without evidence of small bowel obstruction or volvulus. Prominence of the appendix, new from prior exam. Clinical correlation is recommended for acute appendicitis.3. Infrarenal abdominal aortic aneurysm measures 28 mm in diameter, slightly increased from prior exam where it measured 24 mm in diameter. KUB: 09/15: Gaseous distended loops of large and small bowel suggest ileus versus distal obstruction. Continued follow-up recommended KUB 09/17: light increase in gaseous distention of the colon. Mild small bowel dilatation. The findings could reflect an ileus or distal obstruction BC NGTD Cdiff positive C Difficile Colitis Pseudo obstruction wbc 20.91-->32.76k--43.6k PO vanco increased, vanco enemas added along with IV flagyl Plan to go to OR today to ex lap and possible bowel resection NGT with [facility] pharmacy and billet shearer consulted for PPN to start post op, will stop fluid when PPN starts continue NPO-diet will be gradually advanced over the weekend as per surgery (5) Acute kidney injury superimposed on CKD: Plan: A/C CKD-3 bun 44/cr 1.35 today monitor daily labs continue IVF-creatinine is slightly improved at 1.41 today (6) Chronic obstructive pulmonary disease: Plan: Chronic respiratory failure with hypoxemia due to COPD/Asbestosis ( 2-4L of O2 at baseline) continue home inhalers stable-continue oxygen for now (7) Chronic respiratory failure with hypoxia: (8) Hypertension: Plan: HTN atenolol on hold and continue verapamil bp stable (9) DVT prophylaxis: Plan: Irregular heart rhythm on exam EKG reveals undetermined rhythm give pt condition and hx of resp failure high risk for afib would recommend telemetry monitoring post op He will be monitored in medical telemetry unit Hypoalbuminemia in setting of acute illness pharmacy and billet shearer on board for PPN Will likely restart oral food as soon as possible MIGDALIA 4L of O2 at HS DVT ppx: Lovenox - will place on hold / to surgical intervention Dispo: remains admitted, not medically stable for D/C DNR/DNI PCP: Louis Nice Admission and Anticipated Discharge Date Admission Date: September 14, 2021 Subjective 09/18/2021 The patient was seen and examined in ICU He is a status post extubation and has been doing following that Complains some abdominal discomfort and pain Denies any palpitation and/or increasing shortness of breath 09/19/2021 The patient was seen and examined in ICU He was noted to have atrial fibrillation with RVR The rate is controlled now around 90s Complains of abdominal discomfort and generally weak Review of Systems Review of Systems: All systems reviewed and are unremarkable as noted below Respiratory: Minimal shortness of breath at rest Cardiovascular: Additional Comments: No chest pain or palpitation Gastrointestinal: Abdominal discomfort and mild distention Physical Exam Physical Exam: Lying in bed with minimal distress due to shortness of breath and abdominal discomfort Constitutional: well developed and well nourished; no acute distress Eyes: + anicteric sclerae Neck: trachea midline Respiratory: + abnormal respiratory effort (mildly increased work of breathing), no respiratory distress and does not use accessory muscles Auscultation: + diminished lung sounds; no rhonchi and no wheezes Cardiovascular: Rate/Rhythm: + irregularly irregular Vessels: radial pulses present Extremities: normal capillary refill; no edema Gastrointestinal (Abdomen): Inspection/Auscultation: + abdomen distended (marked but soft) and + hypoactive bowel sounds Percussion/Palpation: + abdomen tender (minimal diffuse in LQ bilaterally) and + tympanic to percussion; no guarding Musculoskeletal: Head/Neck/Chest: normocephalic, head atraumatic and neck supple Skin: no jaundice Neurologic: moves all extremities; no focal motor deficits and not confused Psychiatric: A+Ox3, euthymic affect Results & Data Results & Data ([place]) Vital Signs (Past 12 Hours) Vital Signs Temp Pulse Pulse Resp BP BP Pulse Ox 09/19/21 11:01 90 09/19/21 08:05 36.5 C 90 32 H 154/72 H 95 09/19/21 06:00 93 H 23 156/75 H 94 09/19/21 05:00 89 26 H 149/69 H 95 09/19/21 04:00 37 C 87 18 145/67 H 95 09/19/21 03:00 86 20 153/67 H 95 Laboratory Results Short CBC 09/19/21 Range/Units 05:23 WBC 22.62 H (4.8-10.8) K/uL Hgb 10.3 L (14.0-18.0) g/dL Hct 31.3 L (42-52) % Plt Count 66 L (130-400) K/uL BMP 09/19/21 05:23 Sodium 144 Potassium 4.0 Chloride 117 H Carbon Dioxide 24 BUN 29 H Creatinine 1.15 Glucose 138 H Calcium 7.9 L Medications Administered Current Inpatient Medications Albuterol (Albuterol Hfa 8 Gm Inhaler) 2 puffs INH Q6R PRN PRN Reason: Wheezing Stop: 10/14/21 19:10 Dextrose (Dextrose 50% 50 Ml Syringe) 25 - 50 ml IV UD PRN; Protocol PRN Reason: Hypoglycemia Protocol Stop: 10/18/21 05:57 Enoxaparin Sodium (Enoxaparin Inj 40 Mg/0.4 Ml Syr) 40 mg SQ QAM OMID Stop: 10/16/21 08:59 Last Admin: 09/19/21 07:44 Dose: 40 mg Documented by: Fluticasone/Vilanterol (Fluticasone/Vilanterol 100/25mcg 14 Puffs/Inhaler) 1 puffs INH DAILY OMID; Protocol Stop: 10/15/21 08:59 Last Admin: 09/19/21 07:49 Dose: 1 puffs Documented by: Glucagon (Glucagon For Inj 1 Mg Vial) 1 mg SQ UD PRN; Protocol PRN Reason: Hypoglycemia Protocol Stop: 10/18/21 05:57 Glucose (Glucose 10 Tabs/Tube) 4 - 8 tabs PO UD PRN; Protocol PRN Reason: Hypoglycemia Protocol Stop: 10/18/21 05:57 Glucose (Glucose 40% Gel 15 Gm Tube) 15 - 30 gm PO UD PRN; Protocol PRN Reason: Hypoglycemia Protocol Stop: 10/18/21 05:57 Metronidazole (Flagyl) 500 mg in 100 mls @ 100 mls/hr IV Q8H OMID Stop: 09/26/21 09:59 Last Infusion: 09/19/21 10:20 Dose: Infused Documented by: Piperacillin Sod/Tazobactam (Sod 3.375 gm/ Dextrose) 115 mls @ 28.75 mls/hr IV Q8H OMID; Protocol Stop: 09/27/21 19:59 Last Admin: 09/19/21 13:14 Dose: 28.8 mls/hr Documented by: Potassium Chloride/Sodium Chloride (1/2 Nss + 20meq Kcl 1000ml) 20 meq in 1,000 mls @ 50 mls/hr IV .Q20H OMID Stop: 10/18/21 10:29 Last Admin: 09/19/21 07:42 Dose: 50 mls/hr Documented by: Amiodarone HCl/Dextrose (Nexterone / D5w) 360 mg in 200 mls @ 16.667 mls/hr IV .Q12H OMID Stop: 10/18/21 20:59 Last Admin: 09/19/21 09:14 Dose: 0.5 mg/min, 16.7 mls/hr Documented by: Insulin Aspart (Insulin Aspart 100 Units/Ml 3 Ml Pen) 0 units SC Q4 OMID Stop: 10/18/21 07:29 Last Admin: 09/19/21 13:15 Dose: Not Given Documented by: Lansoprazole (Lansoprazole 30 Mg Soltab) 30 mg PO QAM OMID Stop: 10/17/21 14:44 Last Admin: 09/19/21 07:47 Dose: 30 mg Documented by: Metoprolol Tartrate (Metoprolol Tartrate 25 Mg Tab) 12.5 mg PO BID OMID Stop: 10/18/21 08:59 Last Admin: 09/19/21 09:14 Dose: 12.5 mg Documented by: Miscellaneous (Carbohydrates For Hypoglycemia ) 15 - 30 gm PO UD PRN PRN Reason: Hypoglycemia Protocol Stop: 10/18/21 05:57 Miscellaneous Information (Piperacill/Tazobac Consult Active) 1 ea N/A UD PRN PRN Reason: Consult Stop: 10/17/21 13:37 Miscellaneous Information (Pharmacy Glycemic Mgmt Consult) 1 ea N/A UD PRN; Protocol PRN Reason: Consult Stop: 10/18/21 05:57 Morphine Sulfate (Morphine Sulfate 2 Mg/Ml Carp) 2 mg IV Q3H PRN PRN Reason: Pain Stop: 10/02/21 22:25 Last Admin: 09/19/21 08:12 Dose: 2 mg Documented by: Raspberry (Raspberry Syrup 5 Ml Udp) 5 ml PO Q6H OMID Stop: 09/26/21 09:59 Last Admin: 09/19/21 09:16 Dose: Not Given Documented by: Umeclidinium Pease (Umeclidinium Pease 62.5mcg/Blister 7 Puffs/Inhaler) 1 puffs INH DAILY OMID; Protocol Stop: 10/15/21 08:59 Last Admin: 09/19/21 07:48 Dose: 1 puffs Documented by: Vancomycin HCl (Vancomycin Hcl 500 Mg/10 Ml Soln) 500 mg PO Q6H OMID Stop: 09/26/21 09:59 Last Admin: 09/19/21 09:16 Dose: 500 mg Documented by:
[2021-09-19 16:55] LABS: BUN Creatinine Ratio 23.9 (10-20); Calcium 7.1 mg/dl (8.5-10.1); Creatinine Clr Calc Pharmacy 61.5 ml/min; Est GFR (African American) 78.6 ml/min; Est GFR (Non-African American) 67.8 ml/min; Potassium 3.9 mmol/L (3.5-5.1)
[2021-09-19 17:00] LABS: Phosphorus 2.5 mg/dl (2.5-4.9)
[2021-09-19] MEDS ORDERED: METOPROLOL TARTRATE 1 MG/ML VIAL IV STA (21:51)
[2021-09-19] MEDS ORDERED: SODIUM CHLORIDE 0.9% 500 ML IV SCH (23:00)
[2021-09-19] MEDS ORDERED: DIGOXIN 125 MCG in SYRINGE 9.5 ML IV STA (23:04)
[2021-09-20] MEDS: INSULIN ASPART 100 UNITS/ML 3 ML PEN SC SCH ×4 (00:07→20:30)
[2021-09-20] MEDS ORDERED: 0.2 MICRON FILTER SET 1 EA IV ONE (00:30)
[2021-09-20] MEDS ORDERED: AMIODARONE / D5W 150 MG/100 ML BAG IV STA (00:30)
[2021-09-20] MEDS: metroNIDAZOLE 500 MG/100 ML BAG IV SCH ×3 (02:24→16:45)
[2021-09-20] MEDS: SODIUM CHLOR 0.45% + 20MEQ KCL 20 MEQ/1,000 ML BAG IV SCH ×2 (03:42→22:14)
[2021-09-20] MEDS: RASPBERRY SYRUP 5 ML UDP PO SCH ×4 (04:15→22:14)
[2021-09-20] MEDS: VANCOMYCIN HCL 500 MG/10 ML SOLN PO SCH ×4 (04:15→22:13)
[2021-09-20] MEDS: PIPERACILLIN/TAZOBACTAM 3.375 GM in DEXTROSE 5% 100 ML IV SCH ×3 (04:15→20:32)
[2021-09-20 05:44] LABS: Mean Corpuscular Hgb Conc 32.6 g/dL (32-36); Nucleated RBC # (auto) 0.05 K/uL (0-0); Nucleated RBC % (auto) 0.3 %
[2021-09-20 06:17] LABS: BUN Creatinine Ratio 21.1 (10-20); Calcium 7.4 mg/dl (8.5-10.1); Est GFR (African American) 82.4 ml/min; Est GFR (Non-African American) 71.1 ml/min; Magnesium 2.1 mg/dl (1.8-2.4); Potassium 3.8 mmol/L (3.5-5.1)
[2021-09-20 06:25] LABS: Hematocrit (blood only) 32.5 % (42-52); Hemoglobin 10.6 g/dL (14.0-18.0); Mean Corpuscular Hemoglobin 30.6 pg (25-34); Mean Corpuscular Volume 93.9 fL (80-100); Platelet Count 46 K/uL (130-400); RDW Coefficient of Variation 15.6 % (11.5-14.5); RDW Standard Deviation 53.6 fL (36.4-46.3); Red Blood Count 3.46 M/uL (4.7-6.1); White Blood Count 14.75 K/uL (4.8-10.8)
[2021-09-20 06:26] LABS: ALC (manual) 0.27 K/uL (1.2-3.4); ANC (manual) 11.87 K/uL (1.4-6.5); Giant Platelets 1+; Lymphocytes # (manual) 0.27 K/uL (1.2-3.4); Lymphocytes % (manual) 1.8 %; Metamyelocytes # (manual) 0.27 K/uL (0-0); Metamyelocytes % (manual) 1.8 %; Monocytes # (manual) 1.43 K/uL (0.11-0.59); Monocytes % (manual) 9.7 %; Myelocytes # (manual) 0.91 K/uL (0-0); Myelocytes % (manual) 6.2 %; Neutrophils # (manual) 11.87 K/uL (1.4-6.5); Neutrophils % (manual) 80.5 %; Platelet Estimate SIGNIFIC DECREASED (Normal)
[2021-09-20 06:36] LABS: Estimated Average Glucose 148 mg/dl; Hemoglobin A1C 6.8 % (4.5-5.6)
[2021-09-20 06:40] LABS: Phosphorus 1.3 mg/dl (2.5-4.9)
[2021-09-20] MEDS ORDERED: SODIUM PHOSPHATE 3 MMOL/1 ML INFUSION IV STA (06:42)
[2021-09-20] MEDS ORDERED: SODIUM PHOSPHATE 24 MMOL in SODIUM CHLORIDE 0.9% 500 ML IV ONE (07:30)
[2021-09-20] MEDS: ENOXAPARIN INJ 40 MG/0.4 ML SYR SQ SCH (09:34)
[2021-09-20] MEDS: AMIODARONE / D5W 360 MG/200 ML BAG IV SCH (09:34)
[2021-09-20] MEDS: LANSOPRAZOLE 30 MG SOLTAB PO SCH (09:38)
[2021-09-20] MEDS: METOPROLOL TARTRATE 25 MG TAB PO SCH ×2 (09:39→20:31)
[2021-09-20] MEDS: MoRPHine SULFATE 2 MG/ML CARP IV PRN ×2 (09:40→20:34)
[2021-09-20] MEDS: FLUTICASONE/VILANTEROL 100/25MCG 14 PUFFS/INHALER INH SCH (09:42)
[2021-09-20] MEDS: UMECLIDINIUM BROMIDE 62.5MCG/BLISTER 7 PUFFS/INHALER INH SCH (09:45)
--- NOTE | 2021-09-20 10:14 | Surgery Progress Note ---
Date of Service September 20, 2021 Assessment & Plan (1) S/P laparotomy: Plan: He is doing well. Only about 200 cc out of his NG tube recorded last shift. We will pull his NG tube and initiate clear liquids. We want to continue physical therapy and hopefully he will progress with that. Admission and Anticipated Discharge Date Admission Date: September 14, 2021 Subjective He is feeling well today. He would actually like something to eat. He has no new complaints. Physical Exam Physical Exam: Alert and oriented no acute distress Abdomen is soft. His incision is clean and dry with no sign of infection. Stoma is viable and functioning with small amount of stool and gas. Results & Data ([facility]) Vital Signs (Past 12 Hours) Vital Signs Temp Pulse Pulse Pulse Resp BP Pulse Ox 09/20/21 08:28 36.7 C 141 H 26 H 105/77 92 09/20/21 03:25 36.8 C 132 H 24 114/72 91 09/19/21 23:29 139 H 09/19/21 23:03 37 C 124 H 28 H 98/67 L 92 PG Care Time/CCT Total # of Minutes Spent Total Time Spent with Patient: Total time spent is greater than 50% in coordination of care (as documented) at patient's floor/unit and/or counseling patient: Coding Level of Care Code None Diagnoses S/P laparotomy Z98.890
--- NOTE | 2021-09-20 11:42 | Pharmacy Report ---
Pharmacy Glycemic Short Note 2 - Date of Service September 20, 2021 - Glycemic Short BSG Results (Last 24 hours): 09/19/21 09/19/21 09/19/21 13:13 16:32 16:32 Glucose 127 H POC Glucose 117 H 110 H 09/19/21 09/19/21 09/20/21 20:05 23:57 04:16 Glucose POC Glucose 105 H 109 H 109 H 09/20/21 09/20/21 09/20/21 05:08 07:08 11:32 Glucose 120 H POC Glucose 113 H 110 H OUTPATIENT ANTIDIABETIC REGIMEN: * N/A * HbA1c: 6.8% (09/19/21) ASSESSMENT: 09/20 * BSGs remain well controlled with no insulin * Advanced to clear liquid diet today * Will monitor for change in BSG control and potential need for basal 09/18 * 80 yo transferred to ICU following subtotal colectomy 09/17 for C. diff colitis and toxic megacolon. Patient was started on dextrose containing fluid for hypernatremia BSGs mildly elevated into low 200s this morning, glycemic consult per ICU protocol. Patient not currently on outpatient diabetes medications, new A1c pending. Na trending down, IVF changed to 1/2NS+ 20K @ 50 ml/hr with improvement in BSG. Patient is currently NPO with plans to advance diet through the weekend per surgery. * Started weight based stress of 2 novolog parameters, will hold off on basal insulin at this time as patient NPO, improvement in BSGS but will set scale for PM should BSGs trend upward again. PLAN FOR INPATIENT GLYCEMIC CONTROL: * Hold outpatient oral diabetes medications * Basal insulin * Hold * Bolus insulin * NovoLog per scale ACHS or Q6hrs while NPO * Goal Range: Low 120 mg/dL - High 160 mg/dL * Correction Factor: 25 mg/dL/unit * Nutritional / Prandial insulin per carb ratio of 1 unit per 8 grams CHO consumed
[2021-09-20] MEDS ORDERED: INSULIN ASPART 100 UNITS/ML 3 ML PEN SC ONE (11:45)
[2021-09-20] MEDS ORDERED: INSULIN ASPART 100 UNITS/ML 3 ML PEN SC SCH (12:00)
--- NOTE | 2021-09-20 13:47 | Cardiology Progress Note ---
Date of Service September 20, 2021 Assessment & Plan (1) Atrial fibrillation: (2) CAD (coronary artery disease): Plan: ASSESSMENT/PLAN: 1. Atrial fibrillation: He had a few more hours of atrial fibrillation last night. Heart rates were higher. He was not symptomatic. He continues on amiodarone infusion. My hope is that as his clinical condition improves will see less atrial fibrillation. Also, as he takes more amiodarone perhaps we will see less atrial fibrillation. He is taking pills. I will stop his amiodarone infusion start oral medication. When he is felt to be a good candidate for anticoagulation from a surgical standpoint Eliquis 5 mg twice daily would be recommended. Once anticoagulation has been started he would no longer require aspirin. 2. CAD s/p GA and angioplasty in 1990: No angina. Continue beta-beti. Resume statin therapy when able. Admission and Anticipated Discharge Date Admission Date: September 14, 2021 Subjective This afternoon the patient claims to be feeling well. He had some chapped lips and some mild discomfort at his incision with coughing. He is anxious to have an NG tube removed. Review of Systems Review of Systems: Per HPI Physical Exam Physical Exam: Gen.: No acute distress. Alert and oriented. HEENT: Anicteric sclera. Cardiac: Regular rhythm. Normal S1-S2. No murmurs, rubs, or gallops. Pulmonary: Normal respiratory effort. Abdomen: Surgical dressing in place. Extremities: 2+ radial pulses bilaterally. 2+ posterior tibialis pulses bilaterally. No cyanosis. Psychiatric: Affect appears appropriate. Results & Data ([facility]) Vital Signs (Past 12 Hours) Vital Signs Temp Pulse Pulse Resp BP Pulse Ox 09/20/21 12:18 36.9 C 101 H 18 149/70 H 92 09/20/21 08:28 36.7 C 141 H 26 H 105/77 92 09/20/21 03:25 36.8 C 132 H 24 114/72 91 Laboratory Results Abnormal Lab Results 09/19/21 09/19/21 09/19/21 05:23 16:32 16:32 WBC RBC Hgb Hct MCV MCH MCHC RDW Std Deviation RDW Coeff of Jairon Plt Count Absolute Nucleated RBC Nucleated RBC % (auto) Neutrophils % (Manual) Lymphocytes % (Manual) Monocytes % (Manual) Metamyelocytes % (Man) Myelocytes % (Man) Neutrophils # (Manual) Total Absolute Neuts Lymphocytes # (Manual) Total Abs Lymphocytes Monocytes # (Manual) Metamyelocytes # (Man) Myelocytes # (Manual) Platelet Estimate Giant Platelets Sodium 147 H Potassium 3.9 Chloride 119 H Carbon Dioxide 23 Anion Gap 6.0 BUN 25 H Creatinine 1.03 Est Cr Clr Drug Dosing 61.5 Est GFR ( Amer) 78.6 Est GFR (Non-Af Amer) 67.8 BUN/Creatinine Ratio 23.9 H Glucose 127 H POC Glucose 110 H Estimat Average Glucose 148 Hemoglobin A1c 6.8 H Calcium 7.1 L Phosphorus 2.5 D Magnesium 09/19/21 09/19/21 09/20/21 20:05 23:57 04:16 WBC RBC Hgb Hct MCV MCH MCHC RDW Std Deviation RDW Coeff of Jairon Plt Count Absolute Nucleated RBC Nucleated RBC % (auto) Neutrophils % (Manual) Lymphocytes % (Manual) Monocytes % (Manual) Metamyelocytes % (Man) Myelocytes % (Man) Neutrophils # (Manual) Total Absolute Neuts Lymphocytes # (Manual) Total Abs Lymphocytes Monocytes # (Manual) Metamyelocytes # (Man) Myelocytes # (Manual) Platelet Estimate Giant Platelets Sodium Potassium Chloride Carbon Dioxide Anion Gap BUN Creatinine Est Cr Clr Drug Dosing Est GFR ( Amer) Est GFR (Non-Af Amer) BUN/Creatinine Ratio Glucose POC Glucose 105 H 109 H 109 H Estimat Average Glucose Hemoglobin A1c Calcium Phosphorus Magnesium 09/20/21 09/20/21 09/20/21 05:08 05:08 07:08 WBC 14.75 H RBC 3.46 L Hgb 10.6 L Hct 32.5 L MCV 93.9 MCH 30.6 MCHC 32.6 RDW Std Deviation 53.6 H RDW Coeff of Jairon 15.6 H Plt Count 46 L Absolute Nucleated RBC 0.05 H Nucleated RBC % (auto) 0.3 Neutrophils % (Manual) 80.5 Lymphocytes % (Manual) 1.8 Monocytes % (Manual) 9.7 Metamyelocytes % (Man) 1.8 Myelocytes % (Man) 6.2 Neutrophils # (Manual) 11.87 H Total Absolute Neuts 11.87 H Lymphocytes # (Manual) 0.27 L Total Abs Lymphocytes 0.27 L Monocytes # (Manual) 1.43 H Metamyelocytes # (Man) 0.27 H Myelocytes # (Manual) 0.91 H Platelet Estimate SIGNIFIC DECREASED Giant Platelets 1+ Sodium 143 Potassium 3.8 Chloride 114 H Carbon Dioxide 26 Anion Gap 3.0 BUN 21 H Creatinine 0.99 Est Cr Clr Drug Dosing 64.0 Est GFR ( Amer) 82.4 Est GFR (Non-Af Amer) 71.1 BUN/Creatinine Ratio 21.1 H Glucose 120 H POC Glucose 113 H Estimat Average Glucose Hemoglobin A1c Calcium 7.4 L Phosphorus 1.3 L* D Magnesium 2.1 09/20/21 11:32 WBC RBC Hgb Hct MCV MCH MCHC RDW Std Deviation RDW Coeff of Jairon Plt Count Absolute Nucleated RBC Nucleated RBC % (auto) Neutrophils % (Manual) Lymphocytes % (Manual) Monocytes % (Manual) Metamyelocytes % (Man) Myelocytes % (Man) Neutrophils # (Manual) Total Absolute Neuts Lymphocytes # (Manual) Total Abs Lymphocytes Monocytes # (Manual) Metamyelocytes # (Man) Myelocytes # (Manual) Platelet Estimate Giant Platelets Sodium Potassium Chloride Carbon Dioxide Anion Gap BUN Creatinine Est Cr Clr Drug Dosing Est GFR ( Amer) Est GFR (Non-Af Amer) BUN/Creatinine Ratio Glucose POC Glucose 110 H Estimat Average Glucose Hemoglobin A1c Calcium Phosphorus Magnesium PG Care Time/CCT Total # of Minutes Spent Total Time Spent with Patient: Total time spent is greater than 50% in coordination of care (as documented) at patient's floor/unit and/or counseling patient: Coding Level of Care Code 09353 Subseq Hosp Care Lvl 2 Diagnoses Atrial fibrillation I48.91 CAD (coronary artery disease) I25.10
--- NOTE | 2021-09-20 15:05 | Hospitalist Progress Note ---
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 fib with RVR day before yesterday Was seen by railroad dispatcher and amiodarone has been started Will get amiodarone orally from today and/or tomorrow Heart rate is still remains mildly elevated at 101 (3) CAD (coronary artery disease): (4) Clostridium difficile colitis: Plan: This is an 80 y/o female with a PMH of CAD, chronic respiratory failure with hypoxemia due to asbestosis and COPD (on 2-4 L of oxygen at baseline), HTN, HLD, CKD, and MIGDALIA who presented to the ED with progressive abdominal distention and loss of appetite over the past 2-[address] a/p: Prominent colonic gas without evidence of small bowel obstruction or volvulus. Prominence of the appendix, new from prior exam. Clinical correlation is recommended for acute appendicitis.3. Infrarenal abdominal aortic aneurysm measures 28 mm in diameter, slightly increased from prior exam where it measured 24 mm in diameter. KUB: 09/15: Gaseous distended loops of large and small bowel suggest ileus versus distal obstruction. Continued follow-up recommended KUB 09/17: light increase in gaseous distention of the colon. Mild small bowel dilatation. The findings could reflect an ileus or distal obstruction BC NGTD Cdiff positive C Difficile Colitis Pseudo obstruction wbc 20.91-->32.76k--43.6k PO vanco increased, vanco enemas added along with IV flagyl Plan to go to OR today to ex lap and possible bowel resection NGT with [facility] pharmacy and reservations manager consulted for PPN to start post op, will stop fluid when PPN starts continue NPO-diet will be gradually advanced over the weekend as per surgery As above (5) Acute kidney injury superimposed on CKD: Plan: A/C CKD-3 bun 44/cr 1.35 today monitor daily labs continue IVF-creatinine is slightly improved at 1.41 today Creatinine has been normalized (6) Chronic obstructive pulmonary disease: Plan: Chronic respiratory failure with hypoxemia due to COPD/Asbestosis ( 2-4L of O2 at baseline) continue home inhalers stable-continue oxygen for now (7) Chronic respiratory failure with hypoxia: (8) Hypertension: Plan: HTN atenolol on hold and continue verapamil bp stable (9) DVT prophylaxis: Plan: Irregular heart rhythm on exam EKG reveals undetermined rhythm give pt condition and hx of resp failure high risk for afib would recommend telemetry monitoring post op He will be monitored in medical telemetry unit Hypoalbuminemia in setting of acute illness pharmacy and reservations manager on board for PPN Will likely restart oral food as soon as possible MIGDALIA 4L of O2 at HS DVT ppx: Lovenox - will place on hold 2/2 to surgical intervention Dispo: remains admitted, not medically stable for D/C DNR/DNI PCP: Louis Nice Admission and Anticipated Discharge Date Admission Date: September 14, 2021 Subjective 09/18/2021 The patient was seen and examined in ICU He is a status post extubation and has been doing following that Complains some abdominal discomfort and pain Denies any palpitation and/or increasing shortness of breath 09/19/2021 The patient was seen and examined in ICU He was noted to have atrial fibrillation with RVR The rate is controlled now around 90s Complains of abdominal discomfort and generally weak 09/20/2021 The patient was seen and examined in ICU He has noted to have A. fib with RVR last night and amiodarone drip was resta rted He has been feeling better with some discomfort in the abdomen He will have discontinuation of NG tube today and oral sips Review of Systems Review of Systems: All systems reviewed and are unremarkable except as noted below Constitutional: Generalized weakness Physical Exam Physical Exam: Lying in bed with minimal discomfort due to abdominal discomfort and NG tube in situ Constitutional: well developed and well nourished; no acute distress Eyes: + anicteric sclerae Neck: trachea midline Respiratory: + abnormal respiratory effort (mildly increased work of breathing), no respiratory distress and does not use accessory muscles Auscultation: + diminished lung sounds; no rhonchi and no wheezes Cardiovascular: Rate/Rhythm: + irregularly irregular Vessels: radial pulses present Extremities: normal capillary refill; no edema Gastrointestinal (Abdomen): Inspection/Auscultation: + abdomen distended (marked but soft) and + hypoactive bowel sounds Percussion/Palpation: + abdomen tender (minimal diffuse in LQ bilaterally) and + tympanic to percussion; no guarding Musculoskeletal: Head/Neck/Chest: normocephalic, head atraumatic and neck supple Skin: no jaundice Neurologic: moves all extremities; no focal motor deficits and not confused Psychiatric: A+Ox3, euthymic affect Results & Data Results & Data ([facility]) Vital Signs (Past 12 Hours) Vital Signs Temp Pulse Pulse Resp BP Pulse Ox 09/20/21 12:18 36.9 C 101 H 18 149/70 H 92 09/20/21 08:28 36.7 C 141 H 26 H 105/77 92 09/20/21 03:25 36.8 C 132 H 24 114/72 91 Laboratory Results Short CBC 09/20/21 Range/Units 05:08 WBC 14.75 H (4.8-10.8) K/uL Hgb 10.6 L (14.0-18.0) g/dL Hct 32.5 L (42-52) % Plt Count 46 L (130-400) K/uL BMP 09/19/21 09/20/21 16:32 05:08 Sodium 147 H 143 Potassium 3.9 3.8 Chloride 119 H 114 H Carbon Dioxide 23 26 BUN 25 H 21 H Creatinine 1.03 0.99 Glucose 127 H 120 H Calcium 7.1 L 7.4 L Medications Administered Current Inpatient Medications Albuterol (Albuterol Hfa 8 Gm Inhaler) 2 puffs INH Q6R PRN PRN Reason: Wheezing Stop: 10/14/21 19:10 Amiodarone HCl (Amiodarone 200 Mg Tab) 400 mg PO BIDM OMID Stop: 10/20/21 16:59 Dextrose (Dextrose 50% 50 Ml Syringe) 25 - 50 ml IV UD PRN; Protocol PRN Reason: Hypoglycemia Protocol Stop: 10/18/21 05:57 Enoxaparin Sodium (Enoxaparin Inj 40 Mg/0.4 Ml Syr) 40 mg SQ QAM OMID Stop: 10/16/21 08:59 Last Admin: 09/20/21 09:34 Dose: 40 mg Documented by: Fluticasone/Vilanterol (Fluticasone/Vilanterol 100/25mcg 14 Puffs/Inhaler) 1 puffs INH DAILY OMID; Protocol Stop: 10/15/21 08:59 Last Admin: 09/20/21 09:42 Dose: 1 puffs Documented by: Glucagon (Glucagon For Inj 1 Mg Vial) 1 mg SQ UD PRN; Protocol PRN Reason: Hypoglycemia Protocol Stop: 10/18/21 05:57 Glucose (Glucose 10 Tabs/Tube) 4 - 8 tabs PO UD PRN; Protocol PRN Reason: Hypoglycemia Protocol Stop: 10/18/21 05:57 Glucose (Glucose 40% Gel 15 Gm Tube) 15 - 30 gm PO UD PRN; Protocol PRN Reason: Hypoglycemia Protocol Stop: 10/18/21 05:57 Metronidazole (Flagyl) 500 mg in 100 mls @ 100 mls/hr IV Q8H OMID Stop: 09/26/21 09:59 Last Infusion: 09/20/21 10:55 Dose: Infused Documented by: Piperacillin Sod/Tazobactam (Sod 3.375 gm/ Dextrose) 115 mls @ 28.75 mls/hr IV Q8H [facility]; Protocol Stop: 09/27/21 19:59 Last Admin: 09/20/21 11:48 Dose: 28.8 mls/hr Documented by: Potassium Chloride/Sodium Chloride (1/2 Nss + 20meq Kcl 1000ml) 20 meq in 1,000 mls @ 50 mls/hr IV .Q20H OMID Stop: 10/18/21 10:29 Last Admin: 09/20/21 03:42 Dose: 50 mls/hr Documented by: Amiodarone HCl/Dextrose (Nexterone / D5w) 360 mg in 200 mls @ 16.667 mls/hr IV .Q12H OMID Stop: 09/20/21 17:00 Last Admin: 09/20/21 09:34 Dose: 0.5 mg/min, 16.7 mls/hr Documented by: Insulin Aspart (Insulin Aspart 100 Units/Ml 3 Ml Pen) 0 units SC ACHS OMID Stop: 10/20/21 11:59 Lansoprazole (Lansoprazole 30 Mg Soltab) 30 mg PO QAM OMID Stop: 10/17/21 14:44 Last Admin: 09/20/21 09:38 Dose: 30 mg Documented by: Metoprolol Tartrate (Metoprolol Tartrate 25 Mg Tab) 12.5 mg PO BID OMID Stop: 10/18/21 08:59 Last Admin: 09/20/21 09:39 Dose: 12.5 mg Documented by: Miscellaneous (Carbohydrates For Hypoglycemia ) 15 - 30 gm PO UD PRN PRN Reason: Hypoglycemia Protocol Stop: 10/18/21 05:57 Miscellaneous (Stop Order [Amiodarone Infusion]) 1 ea N/A ONE ONE Stop: 09/20/21 17:01 Miscellaneous Information (Piperacill/Tazobac Consult Active) 1 ea N/A UD PRN PRN Reason: Consult Stop: 10/17/21 13:37 Miscellaneous Information (Pharmacy Glycemic Mgmt Consult) 1 ea N/A UD PRN; Protocol PRN Reason: Consult Stop: 10/18/21 05:57 Morphine Sulfate (Morphine Sulfate 2 Mg/Ml Carp) 2 mg IV Q3H PRN PRN Reason: Pain Stop: 10/02/21 22:25 Last Admin: 09/20/21 09:40 Dose: 2 mg Documented by: Raspberry (Raspberry Syrup 5 Ml Udp) 5 ml PO Q6H OMID Stop: 09/26/21 09:59 Last Admin: 09/20/21 09:46 Dose: Not Given Documented by: Umeclidinium [place] (Umeclidinium [place] 62.5mcg/Blister 7 Puffs/Inhaler) 1 puffs INH DAILY OMID; Protocol Stop: 10/15/21 08:59 Last Admin: 09/20/21 09:45 Dose: 1 puffs Documented by: Vancomycin HCl (Vancomycin Hcl 500 Mg/10 Ml Soln) 500 mg PO Q6H OMID Stop: 09/26/21 09:59 Last Admin: 09/20/21 09:46 Dose: 500 mg Documented by: Zolpidem Tartrate (Zolpidem Tartrate 5 Mg Tab) 5 mg PO HS PRN PRN Reason: Sleep Stop: 10/19/21 21:42
[2021-09-20] MEDS: AMIODARONE 200 MG TAB PO SCH (16:43)
[2021-09-20] MEDS ORDERED: [UNRECOGNIZED DRUG - REMARK] ONE (17:00)
[2021-09-20] MEDS: ZOLPIDEM TARTRATE 5 MG TAB PO PRN (20:31)
[2021-09-21] MEDS: metroNIDAZOLE 500 MG/100 ML BAG IV SCH ×3 (02:15→17:51)
[2021-09-21] MEDS: PIPERACILLIN/TAZOBACTAM 3.375 GM in DEXTROSE 5% 100 ML IV SCH ×3 (04:24→19:20)
[2021-09-21] MEDS: RASPBERRY SYRUP 5 ML UDP PO SCH ×4 (04:25→21:15)
[2021-09-21] MEDS: VANCOMYCIN HCL 500 MG/10 ML SOLN PO SCH ×4 (04:25→21:15)
[2021-09-21 05:55] LABS: Mean Corpuscular Hgb Conc 32.8 g/dL (32-36); Nucleated RBC # (auto) 0.04 K/uL (0-0); Nucleated RBC % (auto) 0.3 %
[2021-09-21 06:24] LABS: BUN Creatinine Ratio 17.1 (10-20); Calcium 7.4 mg/dl (8.5-10.1); Creatinine Clr Calc Pharmacy 72.8 ml/min; Est GFR (African American) 92.5 ml/min; Est GFR (Non-African American) 79.8 ml/min; Magnesium 1.9 mg/dl (1.8-2.4); Phosphorus 1.6 mg/dl (2.5-4.9); Potassium 3.8 mmol/L (3.5-5.1)
[2021-09-21 06:53] LABS: ALC (manual) 0.13 K/uL (1.2-3.4); ANC (manual) 10.68 K/uL (1.4-6.5); Hematocrit (blood only) 31.4 % (42-52); Hemoglobin 10.3 g/dL (14.0-18.0); Hypogranular Neutrophils 1+; Lymphocytes # (manual) 0.13 K/uL (1.2-3.4); Lymphocytes % (manual) 0.9 %; Mean Corpuscular Hemoglobin 30.9 pg (25-34); Mean Corpuscular Volume 94.3 fL (80-100); Metamyelocytes # (manual) 0.38 K/uL (0-0); Metamyelocytes % (manual) 2.6 %; Monocytes # (manual) 1.52 K/uL (0.11-0.59); Monocytes % (manual) 10.5 %; Myelocytes # (manual) 1.78 K/uL (0-0); Myelocytes % (manual) 12.3 %; Neutrophils # (manual) 10.68 K/uL (1.4-6.5); Neutrophils % (manual) 73.7 %; Platelet Count 36 K/uL (130-400); Platelet Estimate SIGNIFIC DECREASED (Normal); RDW Coefficient of Variation 15.4 % (11.5-14.5); RDW Standard Deviation 53.1 fL (36.4-46.3); Red Blood Count 3.33 M/uL (4.7-6.1); White Blood Count 14.49 K/uL (4.8-10.8)
[2021-09-21] MEDS: INSULIN ASPART 100 UNITS/ML 3 ML PEN SC SCH ×4 (07:58→20:28)
[2021-09-21] MEDS ORDERED: POTASSIUM PHOS 3 MMOL/1 ML INFUSION IV STA (08:26)
[2021-09-21] MEDS: FLUTICASONE/VILANTEROL 100/25MCG 14 PUFFS/INHALER INH SCH (08:34)
[2021-09-21] MEDS: UMECLIDINIUM BROMIDE 62.5MCG/BLISTER 7 PUFFS/INHALER INH SCH (08:34)
[2021-09-21] MEDS: AMIODARONE 200 MG TAB PO SCH ×2 (08:36→17:51)
[2021-09-21] MEDS: METOPROLOL TARTRATE 25 MG TAB PO SCH ×2 (08:36→19:21)
[2021-09-21] MEDS: LANSOPRAZOLE 30 MG SOLTAB PO SCH (08:36)
[2021-09-21] MEDS: ENOXAPARIN INJ 40 MG/0.4 ML SYR SQ SCH (08:36)
[2021-09-21] MEDS ORDERED: POTASSIUM PHOSPHATE 30 MMOL in SODIUM CHLORIDE 0.9% 500 ML IV ONE (09:00)
--- NOTE | 2021-09-21 10:26 | Cardiology Progress Note ---
Date of Service September 21, 2021 Assessment & Plan (1) Atrial fibrillation: (2) CAD (coronary artery disease): Plan: ASSESSMENT/PLAN: 1. Atrial fibrillation: no atrial fibrillation in the past 24 hours. He is tolerating oral medications. I would continue amiodarone 400 mg twice daily for another 7 days then reduce to 200 mg daily. I would institute anticoagulation with apixaban 5 mg twice daily once it is safe for him to start anticoagulation based on his surgery. Once anticoagulation is started aspirin can be discontinued. He will require follow-up to 4 weeks after discharge in the cardiology clinic to determine duration amiodarone therapy. 2. CAD s/p [place] and angioplasty in 1990: No angina. Continue beta-beti. Resume statin therapy when able. Cardiology will sign off the case at this point. Please call for additional questions or new concerns. Admission and Anticipated Discharge Date Admission Date: September 14, 2021 Subjective This morning the patient had some mild abdominal discomfort. Apparently had some difficulty getting out of bed yesterday due to severe abdominal discomfort. His NG tube was removed yesterday and he is tolerating some liquids. No sense of palpitations. No chest pains. No breathing trouble. Review of Systems Review of Systems: Per HPI Physical Exam Physical Exam: Gen.: No acute distress. Alert and oriented. HEENT: Anicteric sclera. Cardiac: Regular rhythm. Normal S1-S2. No murmurs, rubs, or gallops. Pulmonary: Normal respiratory effort. Abdomen: Surgical dressing in place. Extremities: 2+ radial pulses bilaterally. 2+ posterior tibialis pulses bilaterally. No cyanosis. Psychiatric: Affect appears appropriate. Results & Data ([facility]) Vital Signs (Past 12 Hours) Vital Signs Temp Pulse Resp BP Pulse Ox 09/21/21 03:02 36.4 C L 100 H 24 132/63 94 09/20/21 23:08 36.8 C 101 H 24 151/69 H 95 Laboratory Results Abnormal Lab Results 09/20/21 09/20/21 09/20/21 11:32 16:32 20:29 WBC RBC Hgb Hct MCV MCH MCHC RDW Std Deviation RDW Coeff of Jairon Plt Count Absolute Nucleated RBC Nucleated RBC % (auto) Neutrophils % (Manual) Lymphocytes % (Manual) Monocytes % (Manual) Metamyelocytes % (Man) Myelocytes % (Man) Neutrophils # (Manual) Total Absolute Neuts Lymphocytes # (Manual) Total Abs Lymphocytes Monocytes # (Manual) Metamyelocytes # (Man) Myelocytes # (Manual) Hypogranular Neuts Platelet Estimate Sodium Potassium Chloride Carbon Dioxide Anion Gap BUN Creatinine Est Cr Clr Drug Dosing Est GFR ( Amer) Est GFR (Non-Af Amer) BUN/Creatinine Ratio Glucose POC Glucose 110 H 111 H 123 H Calcium Phosphorus Magnesium 09/21/21 09/21/21 09/21/21 05:27 05:27 07:30 WBC 14.49 H RBC 3.33 L Hgb 10.3 L Hct 31.4 L MCV 94.3 MCH 30.9 MCHC 32.8 RDW Std Deviation 53.1 H RDW Coeff of Jairon 15.4 H Plt Count 36 L Absolute Nucleated RBC 0.04 H Nucleated RBC % (auto) 0.3 Neutrophils % (Manual) 73.7 Lymphocytes % (Manual) 0.9 Monocytes % (Manual) 10.5 Metamyelocytes % (Man) 2.6 Myelocytes % (Man) 12.3 Neutrophils # (Manual) 10.68 H Total Absolute Neuts 10.68 H Lymphocytes # (Manual) 0.13 L Total Abs Lymphocytes 0.13 L Monocytes # (Manual) 1.52 H Metamyelocytes # (Man) 0.38 H Myelocytes # (Manual) 1.78 H Hypogranular Neuts 1+ Platelet Estimate SIGNIFIC DECREASED Sodium 143 Potassium 3.8 Chloride 113 H Carbon Dioxide 28 Anion Gap 2.0 L BUN 15 Creatinine 0.90 Est Cr Clr Drug Dosing 72.8 Est GFR ( Amer) 92.5 Est GFR (Non-Af Amer) 79.8 BUN/Creatinine Ratio 17.1 Glucose 125 H POC Glucose 118 H Calcium 7.4 L Phosphorus 1.6 L Magnesium 1.9 PG Care Time/CCT Total # of Minutes Spent Total Time Spent with Patient: Total time spent is greater than 50% in coordination of care (as documented) at patient's floor/unit and/or counseling patient: Coding Level of Care Code 53950 Subseq Hosp Care Lvl 2 Diagnoses Atrial fibrillation I48.91 CAD (coronary artery disease) I25.10
[2021-09-21] MEDS: MoRPHine SULFATE 2 MG/ML CARP IV PRN ×3 (11:18→19:20)
--- NOTE | 2021-09-21 11:49 | Surgery Progress Note ---
Date of Service September 21, 2021 Assessment & Plan (1) S/P laparotomy: Plan: doing well considering his issues will slowly advance diet as he is tolerating so far PT/OT Admission and Anticipated Discharge Date Admission Date: September 14, 2021 Subjective doing ok. no n/v. mehnaz liquids. "weak" Physical Exam Physical Exam: alert. nad abd: soft. incision no sign of infection. stoma viable with stool output. Results & Data ([facility]) Vital Signs (Past 12 Hours) Vital Signs Temp Pulse Pulse Resp BP Pulse Ox 09/21/21 11:26 36.6 C 95 H 20 170/88 H 96 09/21/21 03:02 36.4 C L 100 H 24 132/63 94 PG Care Time/CCT Total # of Minutes Spent Total Time Spent with Patient: Total time spent is greater than 50% in coordination of care (as documented) at patient's floor/unit and/or counseling patient: Coding Level of Care Code None Diagnoses S/P laparotomy Z98.890
--- NOTE | 2021-09-21 14:14 | Hospitalist Progress Note ---
Date of Service September 21, 2021 Assessment & Plan (1) Toxic megacolon due to Clostridioides difficile: Plan: Status post exploratory laparotomy, subtotal colectomy with colostomy On 09/17/2021 He was intubated and successfully extubated this morning 09/18/2021 Appreciate ongoing surgical care Appreciate care from the interventional sale consultant We will continue current management and he will be transferred to medical telemetry unit Status post removal of NG tube today and is starting of clears orally Patient remains otherwise stable-we will advance diet as tolerated as per instruction from surgery Has hypophosphatemia Replacement given We will recheck (2) Atrial fibrillation: Plan: Noted to have A. fib with RVR day before yesterday Was seen by fish hatchery assistant and amiodarone has been started Will get amiodarone orally from today and/or tomorrow Heart rate is still remains mildly elevated at 101 Has been on oral amiodarone and the heart rate is improving (3) CAD (coronary artery disease): (4) Clostridium difficile colitis: Plan: This is an 80 y/o female with a PMH of CAD, chronic respiratory failure with hypoxemia due to asbestosis and COPD (on 2-4 L of oxygen at baseline), HTN, HLD, CKD, and MIGDALIA who presented to the ED with progressive abdominal distention and loss of appetite over the past 2-[address] a/p: Prominent colonic gas without evidence of small bowel obstruction or volvulus. Prominence of the appendix, new from prior exam. Clinical correlation is recommended for acute appendicitis.3. Infrarenal abdominal aortic aneurysm measures 28 mm in diameter, slightly increased from prior exam where it measured 24 mm in diameter. KUB: 09/15: Gaseous distended loops of large and small bowel suggest ileus versus distal obstruction. Continued follow-up recommended KUB 09/17: light increase in gaseous distention of the colon. Mild small bowel dilatation. The findings could reflect an ileus or distal obstruction BC NGTD Cdiff positive C Difficile Colitis Pseudo obstruction wbc 20.91-->32.76k--43.6k PO vanco increased, vanco enemas added along with IV flagyl Plan to go to OR today to ex lap and possible bowel resection NGT with [facility] pharmacy and interior horticulturist consulted for PPN to start post op, will stop fluid when PPN starts continue NPO-diet will be gradually advanced over the weekend as per surgery As above (5) Acute kidney injury superimposed on CKD: Plan: A/C CKD-3 bun 44/cr 1.35 today monitor daily labs continue IVF-creatinine is slightly improved at 1.41 today Creatinine has been normalized (6) Chronic obstructive pulmonary disease: Plan: Chronic respiratory failure with hypoxemia due to COPD/Asbestosis ( 2-4L of O2 at baseline) continue home inhalers stable-continue oxygen for now (7) Chronic respiratory failure with hypoxia: (8) Hypertension: Plan: HTN atenolol on hold and continue verapamil bp stable (9) DVT prophylaxis: Plan: Irregular heart rhythm on exam EKG reveals undetermined rhythm give pt condition and hx of resp failure high risk for afib would recommend telemetry monitoring post op He will be monitored in medical telemetry unit Hypoalbuminemia in setting of acute illness pharmacy and interior horticulturist on board for PPN Will likely restart oral food as soon as possible MIGDALIA 4L of O2 at HS DVT ppx: Lovenox - will place on hold /2 to surgical intervention Will start apixaban 5 mg twice daily as soon as okay from surgery Dispo: remains admitted, not medically stable for D/C DNR/DNI PCP: Louis Nice Admission and Anticipated Discharge Date Admission Date: September 14, 2021 Subjective 09/18/2021 The patient was seen and examined in ICU He is a status post extubation and has been doing following that Complains some abdominal discomfort and pain Denies any palpitation and/or increasing shortness of breath 09/19/2021 The patient was seen and examined in ICU He was noted to have atrial fibrillation with RVR The rate is controlled now around 90s Complains of abdominal discomfort and generally weak 09/20/2021 The patient was seen and examined in ICU He has noted to have A. fib with RVR last night and amiodarone drip was restarted He has been feeling better with some discomfort in the abdomen He will have discontinuation of NG tube today and oral sips 09/21/2021 The patient was seen and examined in ICU His heart rate is controlled and complains to have some abdominal discomfort He has been tolerating clears Review of Systems Review of Systems: All systems reviewed and are unremarkable except as noted below Constitutional: Generalized weakness Physical Exam Physical Exam: Lying in bed with minimal discomfort due to abdominal discomfort Constitutional: well developed and well nourished; no acute distress Eyes: + anicteric sclerae Neck: trachea midline Respiratory: + abnormal respiratory effort (mildly increased work of breathing), no respiratory distress and does not use accessory muscles Auscultation: + diminished lung sounds; no rhonchi and no wheezes Cardiovascular: Rate/Rhythm: + irregularly irregular Vessels: radial pulses present Extremities: normal capillary refill; no edema Gastrointestinal (Abdomen): Inspection/Auscultation: + abdomen distended (ma rked but soft) and + hypoactive bowel sounds Percussion/Palpation: + abdomen tender (minimal diffuse in LQ bilaterally) and + tympanic to percussion; no guarding Musculoskeletal: Head/Neck/Chest: normocephalic, head atraumatic and neck supple Skin: no jaundice Neurologic: moves all extremities; no focal motor deficits and not confused Psychiatric: A+Ox3, euthymic affect Lymphatic: no cervical or axillary lymphadenopathy Results & Data Results & Data ([facility]) Vital Signs (Past 12 Hours) Vital Signs Temp Pulse Pulse Resp BP Pulse Ox 09/21/21 11:26 36.6 C 95 H 20 170/88 H 96 09/21/21 03:02 36.4 C L 100 H 24 132/63 94 Laboratory Results Short CBC 09/21/21 Range/Units 05:27 WBC 14.49 H (4.8-10.8) K/uL Hgb 10.3 L (14.0-18.0) g/dL Hct 31.4 L (42-52) % Plt Count 36 L (130-400) K/uL BMP 09/21/21 05:27 Sodium 143 Potassium 3.8 Chloride 113 H Carbon Dioxide 28 BUN 15 Creatinine 0.90 Glucose 125 H Calcium 7.4 L Medications Administered Current Inpatient Medications Albuterol (Albuterol Hfa 8 Gm Inhaler) 2 puffs INH Q6R PRN PRN Reason: Wheezing Stop: 10/14/21 19:10 Amiodarone HCl (Amiodarone 200 Mg Tab) 400 mg PO BIDM OMID Stop: 10/20/21 16:59 Last Admin: 09/21/21 08:36 Dose: 400 mg Documented by: Dextrose (Dextrose 50% 50 Ml Syringe) 25 - 50 ml IV UD PRN; Protocol PRN Reason: Hypoglycemia Protocol Stop: 10/18/21 05:57 Enoxaparin Sodium (Enoxaparin Inj 40 Mg/0.4 Ml Syr) 40 mg SQ QAM OMID Stop: 10/16/21 08:59 Last Admin: 09/21/21 08:36 Dose: 40 mg Documented by: Fluticasone/Vilanterol (Fluticasone/Vilanterol 100/25mcg 14 Puffs/Inhaler) 1 puffs INH DAILY OMID; Protocol Stop: 10/15/21 08:59 Last Admin: 09/21/21 08:34 Dose: 1 puffs Documented by: Glucagon (Glucagon For Inj 1 Mg Vial) 1 mg SQ UD PRN; Protocol PRN Reason: Hypoglycemia Protocol Stop: 10/18/21 05:57 Glucose (Glucose 10 Tabs/Tube) 4 - 8 tabs PO UD PRN; Protocol PRN Reason: Hypoglycemia Protocol Stop: 10/18/21 05:57 Glucose (Glucose 40% Gel 15 Gm Tube) 15 - 30 gm PO UD PRN; Protocol PRN Reason: Hypoglycemia Protocol Stop: 10/18/21 05:57 Metronidazole (Flagyl) 500 mg in 100 mls @ 100 mls/hr IV Q8H OMID Stop: 09/26/21 09:59 Last Infusion: 09/21/21 10:17 Dose: Infused Documented by: Piperacillin Sod/Tazobactam (Sod 3.375 gm/ Dextrose) 115 mls @ 28.75 mls/hr IV Q8H [facility]; Protocol Stop: 09/27/21 19:59 Last Admin: 09/21/21 12:16 Dose: 28.8 mls/hr Documented by: Potassium Chloride/Sodium Chloride (1/2 Nss + 20meq Kcl 1000ml) 20 meq in 1,000 mls @ 50 mls/hr IV .Q20H OMID Stop: 10/18/21 10:29 Last Admin: 09/20/21 22:14 Dose: 50 mls/hr Documented by: Insulin Aspart (Insulin Aspart 100 Units/Ml 3 Ml Pen) 0 units SC ACHS OMID Stop: 10/20/21 11:59 Last Admin: 09/21/21 11:43 Dose: Not Given Documented by: Lansoprazole (Lansoprazole 30 Mg Soltab) 30 mg PO QAM OMID Stop: 10/17/21 14:44 Last Admin: 09/21/21 08:36 Dose: 30 mg Documented by: Metoprolol Tartrate (Metoprolol Tartrate 25 Mg Tab) 12.5 mg PO BID OMID Stop: 10/18/21 08:59 Last Admin: 09/21/21 08:36 Dose: 12.5 mg Documented by: Miscellaneous (Carbohydrates For Hypoglycemia ) 15 - 30 gm PO UD PRN PRN Reason: Hypoglycemia Protocol Stop: 10/18/21 05:57 Miscellaneous Information (Piperacill/Tazobac Consult Active) 1 ea N/A UD PRN PRN Reason: Consult Stop: 10/17/21 13:37 Miscellaneous Information (Pharmacy Glycemic Mgmt Consult) 1 ea N/A UD PRN; Protocol PRN Reason: Consult Stop: 10/18/21 05:57 Morphine Sulfate (Morphine Sulfate 2 Mg/Ml Carp) 2 mg IV Q3H PRN PRN Reason: Pain Stop: 10/02/21 22:25 Last Admin: 09/21/21 11:18 Dose: 2 mg Documented by: Raspberry (Raspberry Syrup 5 Ml Udp) 5 ml PO Q6H OMID Stop: 10/07/21 19:59 Last Admin: 09/21/21 08:35 Dose: 5 ml Documented by: Umeclidinium [place] (Umeclidinium [place] 62.5mcg/Blister 7 Puffs/Inhaler) 1 puffs INH DAILY OMID; Protocol Stop: 10/15/21 08:59 Last Admin: 09/21/21 08:34 Dose: 1 puffs Documented by: Vancomycin HCl (Vancomycin Hcl 500 Mg/10 Ml Soln) 500 mg PO Q6H OMID Stop: 10/07/21 19:59 Last Admin: 09/21/21 08:35 Dose: 500 mg Documented by: Zolpidem Tartrate (Zolpidem Tartrate 5 Mg Tab) 5 mg PO HS PRN PRN Reason: Sleep Stop: 10/19/21 21:42 Last Admin: 09/20/21 20:31 Dose: 5 mg Documented by:
[2021-09-21] MEDS: SODIUM CHLOR 0.45% + 20MEQ KCL 20 MEQ/1,000 ML BAG IV SCH (17:52)
[2021-09-21] MEDS: APIXABAN 5 MG TABLET PO SCH (19:21)
[2021-09-21] MEDS: ZOLPIDEM TARTRATE 5 MG TAB PO PRN (20:29)
[2021-09-22] MEDS: metroNIDAZOLE 500 MG/100 ML BAG IV SCH ×3 (02:50→16:15)
[2021-09-22] MEDS: RASPBERRY SYRUP 5 ML UDP PO SCH ×4 (04:52→21:11)
[2021-09-22] MEDS: PIPERACILLIN/TAZOBACTAM 3.375 GM in DEXTROSE 5% 100 ML IV SCH ×3 (04:52→20:20)
[2021-09-22] MEDS: VANCOMYCIN HCL 500 MG/10 ML SOLN PO SCH ×4 (04:52→21:11)
[2021-09-22 05:40] LABS: BUN Creatinine Ratio 12.2 (10-20); Calcium 7.6 mg/dl (8.5-10.1); Creatinine Clr Calc Pharmacy 72.3 ml/min; Est GFR (African American) 92.5 ml/min; Est GFR (Non-African American) 79.8 ml/min; Magnesium 1.7 mg/dl (1.8-2.4)
[2021-09-22 05:50] LABS: Phosphorus 1.7 mg/dl (2.5-4.9); Thyroid Stimulating Hormone 9.48 uIu/ml (0.300-4.500)
[2021-09-22 06:06] LABS: T4 Free Thyroxine 1.56 ng/dl (0.8-1.6)
[2021-09-22] MEDS ORDERED: SODIUM PHOSPHATE 3 MMOL/1 ML 5 ML VIAL IV ONE (08:00)
[2021-09-22] MEDS ORDERED: SODIUM PHOSPHATE 30 MMOL in SODIUM CHLORIDE 0.9% 500 ML IV ONE (08:15)
[2021-09-22] MEDS: INSULIN ASPART 100 UNITS/ML 3 ML PEN SC SCH ×4 (08:15→21:08)
[2021-09-22] MEDS: AMIODARONE 200 MG TAB PO SCH ×2 (08:16→16:16)
[2021-09-22] MEDS: LANSOPRAZOLE 30 MG SOLTAB PO SCH (08:16)
[2021-09-22] MEDS: METOPROLOL TARTRATE 25 MG TAB PO SCH ×2 (08:16→21:10)
[2021-09-22] MEDS: APIXABAN 5 MG TABLET PO SCH ×2 (08:16→21:09)
[2021-09-22] MEDS: MoRPHine SULFATE 2 MG/ML CARP IV PRN (08:17)
[2021-09-22] MEDS: UMECLIDINIUM BROMIDE 62.5MCG/BLISTER 7 PUFFS/INHALER INH SCH (08:24)
[2021-09-22] MEDS: FLUTICASONE/VILANTEROL 100/25MCG 14 PUFFS/INHALER INH SCH (08:24)
--- NOTE | 2021-09-22 08:36 | Surgery Progress Note ---
Date of Service September 22, 2021 Assessment & Plan (1) S/P laparotomy: Plan: Continues to slowly improve from our perspective. We will advance him to a low residue diet today. Continue physical therapy/Occupational Therapy. No acute surgical issues at this time. Admission and Anticipated Discharge Date Admission Date: September 14, 2021 Subjective pt seen. no new complaints. Tolerating full liquid diet. Physical Exam Physical Exam: Alert and oriented no acute distress Incision shows no signs of infection. His stoma is viable with increased output of stool. Results & Data ([facility]) Vital Signs (Past 12 Hours) Vital Signs Temp Pulse Pulse Resp BP Pulse Ox 09/22/21 03:46 36.9 C 94 H 20 160/80 H 94 09/21/21 23:54 36.8 C 93 H 22 154/107 H 94 PG Care Time/CCT Total # of Minutes Spent Total Time Spent with Patient: Total time spent is greater than 50% in coordination of care (as documented) at patient's floor/unit and/or counseling patient: Coding Level of Care Code None Diagnoses S/P laparotomy Z98.890
--- NOTE | 2021-09-22 09:48 | Pharmacy Report ---
Pharmacy Glycemic Short Note 2 - Date of Service September 22, 2021 - Glycemic Short BSG Results (Last 24 hours): 09/21/21 09/21/21 09/21/21 11:17 16:29 20:27 Glucose POC Glucose 114 H 125 H 176 H 09/22/21 09/22/21 04:55 07:29 Glucose 128 H POC Glucose 113 H OUTPATIENT ANTIDIABETIC REGIMEN: * N/A * HbA1c: 6.8% (09/19/21) ASSESSMENT: 09/22/21 * Patient's BSGs yesterday were [phone] mg/dL. Fasting today is 113 mg/dL. Patient received 1 unit of bolus yesterday. * Continue to hold Lantus. * Continue Novolog as patient has just started eating. It is weight-based stress of 2. Adjust based upon lunch BSG. 09/20 * BSGs remain well controlled with no insulin * Advanced to clear liquid diet today * Will monitor for change in BSG control and potential need for basal 09/18 * 80 yo transferred to ICU following subtotal colectomy 09/17 for C. diff colitis and toxic megacolon. Patient was started on dextrose containing fluid for hypernatremia BSGs mildly elevated into low 200s this morning, glycemic consult per ICU protocol. Patient not currently on outpatient diabetes medications, new A1c pending. Na trending down, IVF changed to 1/2NS+ 20K @ 50 ml/hr with improvement in BSG. Patient is currently NPO with plans to advance diet through the weekend per surgery. * Started weight based stress of 2 novolog parameters, will hold off on basal insulin at this time as patient NPO, improvement in BSGS but will set scale for PM should BSGs trend upward again. PLAN FOR INPATIENT GLYCEMIC CONTROL: * Hold outpatient oral diabetes medications * Basal insulin * Hold * Bolus insulin * NovoLog per scale ACHS or Q6hrs while NPO * Goal Range: Low 120 mg/dL - High 160 mg/dL * Correction Factor: 25 mg/dL/unit * Nutritional / Prandial insulin per carb ratio of 1 unit per 8 grams CHO consumed
[2021-09-22] MEDS ORDERED: METOPROLOL TARTRATE 25 MG TAB PO ONE (13:38)
[2021-09-22] MEDS: SODIUM CHLOR 0.45% + 20MEQ KCL 20 MEQ/1,000 ML BAG IV SCH (14:11)
--- NOTE | 2021-09-22 14:35 | Hospitalist Progress Note ---
Date of Service September 22, 2021 Assessment & Plan (1) Toxic megacolon due to Clostridioides difficile: Plan: Status post exploratory laparotomy, subtotal colectomy with colostomy On 09/17/2021 He was intubated and successfully extubated this morning 09/18/2021 Appreciate ongoing surgical care Appreciate care from the management architect We will continue current management and he will be transferred to medical telemetry unit Status post removal of NG tube today and is starting of clears orally Patient remains otherwise stable-we will advance diet as tolerated as per instruction from surgery Has hypophosphatemia Replacement given We will recheck-still remains low at 1.7 Supplemented (2) Atrial fibrillation: Plan: Noted to have A. fib with RVR day before yesterday Was seen by mill beam fitter and amiodarone has been started Will get amiodarone orally from today and/or tomorrow Heart rate is still remains mildly elevated at 101 Has been on oral amiodarone and the heart rate is improving Heart rate remains elevated at home 100 Beta-beti dose has been increased to control blood pressure and heart rate (3) CAD (coronary artery disease): (4) Clostridium difficile colitis: Plan: This is an 80 y/o female with a PMH of CAD, chronic respiratory failure with hypoxemia due to asbestosis and COPD (on 2-4 L of oxygen at baseline), HTN, HLD, CKD, and MIGDALIA who presented to the ED with progressive abdominal distention and loss of appetite over the past 2-[address] a/p: Prominent colonic gas without evidence of small bowel obstruction or volvulus. Prominence of the appendix, new from prior exam. Clinical correlation is recommended for acute appendicitis.3. Infrarenal abdominal aortic aneurysm measures 28 mm in diameter, slightly increased from prior exam where it measured 24 mm in diameter. KUB: 09/15: Gaseous distended loops of large and small bowel suggest ileus versus distal obstruction. Continued follow-up recommended KUB 09/17: light increase in gaseous distention of the colon. Mild small bowel dilatation. The findings could reflect an ileus or distal obstruction BC NGTD Cdiff positive C Difficile Colitis Pseudo obstruction wbc 20.91-->32.76k--43.6k PO vanco increased, vanco enemas added along with IV flagyl Plan to go to OR today to ex lap and possible bowel resection NGT with [facility] pharmacy and wiping rag washer consulted for PPN to start post op, will stop fluid when PPN starts continue NPO-diet will be gradually advanced over the weekend as per surgery As above Has been on vancomycin for C. difficile infection (5) Acute kidney injury superimposed on CKD: Plan: A/C CKD-3 bun 44/cr 1.35 today monitor daily labs continue IVF-creatinine is slightly improved at 1.41 today Creatinine has been normalized (6) Chronic obstructive pulmonary disease: Plan: Chronic respiratory failure with hypoxemia due to COPD/Asbestosis ( 2-4L of O2 at baseline) continue home inhalers stable-continue oxygen for now (7) Chronic respiratory failure with hypoxia: (8) Hypertension: Plan: HTN atenolol on hold and continue verapamil bp stable (9) DVT prophylaxis: Plan: Irregular heart rhythm on exam EKG reveals undetermined rhythm give pt condition and hx of resp failure high risk for afib would recommend telemetry monitoring post op He will be monitored in medical telemetry unit Hypoalbuminemia in setting of acute illness pharmacy and wiping rag washer on board for PPN Will likely restart oral food as soon as possible MIGDALIA 4L of O2 at HS DVT ppx: Lovenox - will place on hold 2/2 to surgical intervention Will start apixaban 5 mg twice daily as soon as okay from surgery He has been on Eliquis 5 mg twice daily Dispo: remains admitted, not medically stable for D/C Will transfer to medical telemetry unit DNR/DNI PCP: Louis Nice Admission and Anticipated Discharge Date Admission Date: September 14, 2021 Subjective 09/18/2021 The patient was seen and examined in ICU He is a status post extubation and has been doing following that Complains some abdominal discomfort and pain Denies any palpitation and/or increasing shortness of breath 09/19/2021 The patient was seen and examined in ICU He was noted to have atrial fibrillation with RVR The rate is controlled now around 90s Complains of abdominal discomfort and generally weak 09/20/2021 The patient was seen and examined in ICU He has noted to have A. fib with RVR last night and amiodarone drip was restarted He has been feeling better with some discomfort in the abdomen He will have discontinuation of NG tube today and oral sips 09/21/2021 The patient was seen and examined in ICU His heart rate is controlled and complains to have some abdominal discomfort He has been tolerating clears 09/22/2021 The patient was seen and examined in ICU He has been feeling much better Denies any significant symptoms and the heart rate remains around 100 Review of Systems Review of Systems: All systems reviewed and are unremarkable except as noted below Constitutional: Generalized weakness Physical Exam Physical Exam: Lying in bed with minimal discomfort due to abdominal discomfort Constitutional: well developed and well nourished; no acute distress Eyes: + anicteric sclerae Neck: trachea midline Respiratory: + abnormal respiratory effort (mildly increased work of breathing), no respiratory distress and does not use accessory muscles Auscul tation: + diminished lung sounds; no rhonchi and no wheezes Cardiovascular: Rate/Rhythm: + irregularly irregular Vessels: radial pulses present Extremities: normal capillary refill; no edema Gastrointestinal (Abdomen): Inspection/Auscultation: + abdomen distended (marked but soft) and + hypoactive bowel sounds Percussion/Palpation: + abdomen tender (minimal diffuse in LQ bilaterally) and + tympanic to percussion; no guarding Musculoskeletal: Head/Neck/Chest: normocephalic, head atraumatic and neck supple Skin: no jaundice Neurologic: moves all extremities; no focal motor deficits and not confused Psychiatric: A+Ox3, euthymic affect Lymphatic: no cervical or axillary lymphadenopathy Results & Data Results & Data ([facility]) Vital Signs (Past 12 Hours) Vital Signs Temp Pulse Pulse Resp BP Pulse Ox 09/22/21 10:50 36.7 C 100 H 20 190/96 H 95 09/22/21 03:46 36.9 C 94 H 20 160/80 H 94 Laboratory Results [facility] 09/22/21 04:55 Sodium 142 Potassium 4.0 Chloride 110 H Carbon Dioxide 29 BUN 11 Creatinine 0.90 Glucose 128 H Calcium 7.6 L Medications Administered Current Inpatient Medications Albuterol (Albuterol Hfa 8 Gm Inhaler) 2 puffs INH Q6R PRN PRN Reason: Wheezing Stop: 10/14/21 19:10 Amiodarone HCl (Amiodarone 200 Mg Tab) 400 mg PO BIDM [facility] Stop: 10/20/21 16:59 Last Admin: 09/22/21 08:16 Dose: 400 mg Documented by: Apixaban (Apixaban 5 Mg Tablet) 5 mg PO BID [facility] Stop: 10/21/21 20:59 Last Admin: 09/22/21 08:16 Dose: 5 mg Documented by: Dextrose (Dextrose 50% 50 Ml Syringe) 25 - 50 ml IV UD PRN; Protocol PRN Reason: Hypoglycemia Protocol Stop: 10/18/21 05:57 Fluticasone/Vilanterol (Fluticasone/Vilanterol 100/25mcg 14 Puffs/Inhaler) 1 puffs INH DAILY [facility]; Protocol Stop: 10/15/21 08:59 Last Admin: 09/22/21 08:24 Dose: 1 puffs Documented by: Glucagon (Glucagon For Inj 1 Mg Vial) 1 mg SQ UD PRN; Protocol PRN Reason: Hypoglycemia Protocol Stop: 10/18/21 05:57 Glucose (Glucose 10 Tabs/Tube) 4 - 8 tabs PO UD PRN; Protocol PRN Reason: Hypoglycemia Protocol Stop: 10/18/21 05:57 Glucose (Glucose 40% Gel 15 Gm Tube) 15 - 30 gm PO UD PRN; Protocol PRN Reason: Hypoglycemia Protocol Stop: 10/18/21 05:57 Metronidazole (Flagyl) 500 mg in 100 mls @ 100 mls/hr IV Q8H [facility] Stop: 09/26/21 09:59 Last Infusion: 09/22/21 09:22 Dose: Infused Documented by: Piperacillin Sod/Tazobactam (Sod 3.375 gm/ Dextrose) 115 mls @ 28.75 mls/hr IV Q8H [facility]; Protocol Stop: 09/27/21 19:59 Last Admin: 09/22/21 14:11 Dose: 28.8 mls/hr Documented by: Potassium Chloride/Sodium Chloride (1/2 Nss + 20meq Kcl 1000ml) 20 meq in 1,000 mls @ 50 mls/hr IV .Q20H [facility] Stop: 10/18/21 10:29 Last Admin: 09/22/21 14:11 Dose: 50 mls/hr Documented by: Insulin Aspart (Insulin Aspart 100 Units/Ml 3 Ml Pen) 0 units SC ACHS [facility] Stop: 10/20/21 11:59 Last Admin: 09/22/21 12:41 Dose: Not Given Documented by: Lansoprazole (Lansoprazole 30 Mg Soltab) 30 mg PO QAM [facility] Stop: 10/17/21 14:44 Last Admin: 09/22/21 08:16 Dose: 30 mg Documented by: Metoprolol Tartrate (Metoprolol Tartrate 25 Mg Tab) 25 mg PO BID [facility] Stop: 10/22/21 20:59 Miscellaneous (Carbohydrates For Hypoglycemia ) 15 - 30 gm PO UD PRN PRN Reason: Hypoglycemia Protocol Stop: 10/18/21 05:57 Miscellaneous Information (Piperacill/Tazobac Consult Active) 1 ea N/A UD PRN PRN Reason: Consult Stop: 10/17/21 13:37 Miscellaneous Information (Pharmacy Glycemic Mgmt Consult) 1 ea N/A UD PRN; Protocol PRN Reason: Consult Stop: 10/18/21 05:57 Morphine Sulfate (Morphine Sulfate 2 Mg/Ml Carp) 2 mg IV Q3H PRN PRN Reason: Pain Stop: 10/02/21 22:25 Last Admin: 09/22/21 08:17 Dose: 2 mg Documented by: Raspberry (Raspberry Syrup 5 Ml Udp) 5 ml PO Q6H [facility] Stop: 10/07/21 19:59 Last Admin: 09/22/21 08:18 Dose: 5 ml Documented by: Umeclidinium [place] (Umeclidinium [place] 62.5mcg/Blister 7 Puffs/Inhaler) 1 puffs INH DAILY [facility]; Protocol Stop: 10/15/21 08:59 Last Admin: 09/22/21 08:24 Dose: 1 puffs Documented by: Vancomycin HCl (Vancomycin Hcl 500 Mg/10 Ml Soln) 500 mg PO Q6H [facility] Stop: 10/07/21 19:59 Last Admin: 09/22/21 08:18 Dose: 500 mg Documented by: Zolpidem Tartrate (Zolpidem Tartrate 5 Mg Tab) 5 mg PO HS PRN PRN Reason: Sleep Stop: 10/19/21 21:42 Last Admin: 09/21/21 20:29 Dose: 5 mg Documented by:
[2021-09-22] MEDS: HYDROmorphone INJ 0.5 MG/0.5 ML SYR IV PRN (20:22)
[2021-09-22] MEDS: ZOLPIDEM TARTRATE 5 MG TAB PO PRN (23:37)
[2021-09-23] MEDS: metroNIDAZOLE 500 MG/100 ML BAG IV SCH ×3 (02:49→17:11)
[2021-09-23] MEDS: PIPERACILLIN/TAZOBACTAM 3.375 GM in DEXTROSE 5% 100 ML IV SCH ×3 (04:46→20:29)
[2021-09-23] MEDS: VANCOMYCIN HCL 500 MG/10 ML SOLN PO SCH ×4 (04:47→21:26)
[2021-09-23] MEDS: RASPBERRY SYRUP 5 ML UDP PO SCH ×4 (04:47→21:26)
[2021-09-23 07:34] LABS: Mean Corpuscular Hgb Conc 33.2 g/dL (32-36); Nucleated RBC # (auto) 0.04 K/uL (0-0); Nucleated RBC % (auto) 0.3 %
[2021-09-23 07:44] LABS: Hematocrit (blood only) 31.3 % (42-52); Hemoglobin 10.4 g/dL (14.0-18.0); Mean Corpuscular Volume 93.4 fL (80-100); RDW Coefficient of Variation 15.2 % (11.5-14.5); RDW Standard Deviation 51.5 fL (36.4-46.3); Red Blood Count 3.35 M/uL (4.7-6.1)
--- NOTE | 2021-09-23 07:49 | Pharmacy Report ---
Pharmacy Glycemic Sign Off Nt - Date of Service September 23, 2021 - Assessment & Plan ASSESSMENT: * Pharmacy was consulted for glycemic control and to write orders per [facility] inpatient glycemic control protocol. * Major changes made by pharmacy to antidiabetic regimen include: * adding a weight based novolog scale per CF/CR * Patient has been receiving/requiring 0-3 units of insulin per day for adequate glycemic control * BSGs ranging 112-134 mg/dl * Regimen has only required minor adjustments over the past 48hrs to achieve this level of control * Do not anticipate further changes in patient status that would quickly deteriorate glycemic control/ Diet is advancing but based on A1c basal insulin not likely. * Please see recommendations for outpatient antidiabetic regimen below. PLAN FOR INPATIENT GLYCEMIC CONTROL: No changes needed to current regimen. * No basal needed * Continue NovoLog per scale ACHS/Q6hrs while NPO * Goal range = 120-160 mg/dl * CF = 30 mg/dl/unit * CR = 1 unit for ever 10 g CHO consumed * Pharmacy is signing off of glycemic consult and will no longer be making adjustments to inpatient regimen. Please feel free to re-consult if needed. Thank you. DISCHARGE RECOMMENDATIONS: * A1c 6.8 % on 09/19/21 * No changes needed - patient to continue diet and lifestyle interventions.
[2021-09-23 07:54] LABS: ALC (manual) 0.77 K/uL (1.2-3.4); ANC (manual) 11.04 K/uL (1.4-6.5); Hypogranular Neutrophils 1+; Lymphocytes # (manual) 0.77 K/uL (1.2-3.4); Lymphocytes % (manual) 5.2 %; Metamyelocytes # (manual) 0.25 K/uL (0-0); Metamyelocytes % (manual) 1.7 %; Monocytes # (manual) 1.67 K/uL (0.11-0.59); Monocytes % (manual) 11.2 %; Myelocytes # (manual) 1.16 K/uL (0-0); Myelocytes % (manual) 7.8 %; Neutrophils # (manual) 11.04 K/uL (1.4-6.5); Neutrophils % (manual) 74.1 %; Platelet Count 47 K/uL (130-400); Platelet Estimate Decreased (Normal)
[2021-09-23 08:10] LABS: BUN Creatinine Ratio 9.6 (10-20); Calcium 7.5 mg/dl (8.5-10.1); Creatinine Clr Calc Pharmacy 64.2 ml/min; Est GFR (African American) 81.4 ml/min; Est GFR (Non-African American) 70.3 ml/min; Potassium 4.2 mmol/L (3.5-5.1)
[2021-09-23] MEDS: LANSOPRAZOLE 30 MG SOLTAB PO SCH (09:37)
[2021-09-23] MEDS: APIXABAN 5 MG TABLET PO SCH ×2 (09:38→20:30)
[2021-09-23] MEDS: AMIODARONE 200 MG TAB PO SCH ×2 (09:38→17:11)
[2021-09-23] MEDS: METOPROLOL TARTRATE 25 MG TAB PO SCH ×2 (09:39→20:32)
[2021-09-23] MEDS: UMECLIDINIUM BROMIDE 62.5MCG/BLISTER 7 PUFFS/INHALER INH SCH (09:42)
[2021-09-23] MEDS: FLUTICASONE/VILANTEROL 100/25MCG 14 PUFFS/INHALER INH SCH (09:43)
[2021-09-23] MEDS: INSULIN ASPART 100 UNITS/ML 3 ML PEN SC SCH ×4 (09:44→20:30)
[2021-09-23] MEDS: SODIUM CHLOR 0.45% + 20MEQ KCL 20 MEQ/1,000 ML BAG IV SCH (10:15)
[2021-09-23] MEDS: HYDROmorphone INJ 0.5 MG/0.5 ML SYR IV PRN (13:14)
--- NOTE | 2021-09-23 17:15 | Hospitalist Progress Note ---
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 fib with RVR Was seen by pulp beater and amiodarone has been started Has been on oral amiodarone and the heart rate is improving Heart rate remains elevated at home 100 Beta-beti dose has been increased to control blood pressure and heart rate (3) CAD (coronary artery disease): (4) Clostridium difficile colitis: Plan: This is an 80 y/o M w/CAD, chronic respiratory failure with hypoxemia due to asbestosis and COPD (on 2-4 L of oxygen at baseline), HTN, HLD, CKD, and MIGDALIA who presented to the ED with progressive abdominal distention and loss of appetite over the past 2-[address] a/p: Prominent colonic gas without evidence of small bowel obstruction or volvulus. Prominence of the appendix, new from prior exam. Clinical correlation is recommended for acute appendicitis.3. Infrarenal abdominal aortic aneurysm measures 28 mm in diameter, slightly increased from prior exam where it measured 24 mm in diameter. KUB: 09/15: Gaseous distended loops of large and small bowel suggest ileus versus distal obstruction. Continued follow-up recommended KUB 09/17: light increase in gaseous distention of the colon. Mild small bowel dilatation. The findings could reflect an ileus or distal obstruction BC NGTD Cdiff positive C Difficile Colitis Pseudo obstruction wbc 20.91-->32.76k--43.6k PO vanco increased, vanco enemas added along with IV flagyl OR for ex lap and possible bowel resection NGT with [facility] pharmacy and senior accounting analyst consulted for PPN to start post op, will stop fluid when PPN starts continue NPO-diet will be gradually advanced over the weekend as per surgery As above Has been on vancomycin for C. difficile infection (5) Acute kidney injury superimposed on CKD: Plan: A/C CKD-3 bun 44/cr 1.35 monitor daily labs continue IVF Creatinine has been normalized (6) Chronic obstructive pulmonary disease: Plan: Chronic respiratory failure with hypoxemia due to COPD/Asbestosis ( 2-4L of O2 at baseline) continue home inhalers stable-continue oxygen for now (7) Chronic respiratory failure with hypoxia: (8) Hypertension: Plan: HTN atenolol on hold and continue verapamil bp stable (9) DVT prophylaxis: Plan: Hypoalbuminemia in setting of acute illness pharmacy and senior accounting analyst on board for PPN now on oral foods MIGDALIA 4L of O2 at HS DVT ppx: He has been on Eliquis 5 mg twice daily Dispo: remains admitted, not medically stable for D/C medical telemetry unit DNR/DNI PCP: Louis Nice Admission and Anticipated Discharge Date Admission Date: September 14, [address] Finney 09/18/2021 The patient was seen and examined in ICU, extubated 09/19/2021 The patient was seen and examined in ICU He was noted to have atrial fibrillation with RVR 09/20/2021 The patient was seen and examined in ICU He has noted to have A. fib with RVR last night and amiodarone drip was restarted He will have discontinuation of NG tube today and oral sips 09/22/2021 The patient was seen and examined in ICU He has been feeling much better Denies any significant symptoms and the heart rate remains around 100 09/23 - pt seen by Dr. Rivero in room 260 Pt has no complaints Specifically denies any chest pain, shortness of breath, sign. abd. pain He is tolerating diet Reports feeling comfortable Cont. to be on suppl. O2 via [place] Review of Systems Review of Systems: All systems reviewed & are unremarkable except as noted in Subjective Physical Exam Physical Exam: Physical Exam: Lying in bed with minimal discomfort due to abdominal discomfort Constitutional:L well developed and well nourished; n o acute distress Eyes: + anicteric scler ae Neck: trachea midline BRespiratory: no respiratory dis tress and does not use accessory mus cles Auscultation : + diminished dimas g sounds; no rhonc hi and no wheezes Cardiovascular:L Rate/Rhythm: + irr egularly irregular Vessels: radial pulses present Ex tremities: normal capillary refill; no edema Gastrointestinal ( Abdomen): Inspection/Auscult ation: + abdomen d istended (but soft ) and + hypoactive bowel sounds Per cussion/Palpation: + abdomen tender (minimal diffuse i n LQ bilaterally), no guarding, post . surg. dressings applied Musculoskeletal: Head/Neck/Chest: n ormocephalic, head atraumatic and ne ck supple Skin: no jaundice Neurologic: moves all extremit ies; no focal holly r deficits and not confused Psychiatric: A+Ox3, euthymic af fect Lymphatic: Results & Data Results & Data ([facility]) Vital Signs (Past 12 Hours) Vital Signs Temp Pulse Pulse Pulse Resp BP Pulse Ox 09/23/21 16:36 84 09/23/21 15:23 37.1 C 83 18 144/73 H 96 09/23/21 11:36 36.5 C 97 H 20 155/78 H 98 09/23/21 08:12 36.8 C 89 18 170/76 H 95 09/23/21 07:36 81 Laboratory Results 09/23/21 09/23/21 09/23/21 Range/Units 16:44 11:26 07:35 WBC (4.8-10.8) K/uL RBC (4.7-6.1) M/uL Hgb (14.0-18.0) g/dL Hct (42-52) % MCV (80-100) fL MCH (25-34) pg MCHC (32-36) g/dL RDW Std Deviation (36.4-46.3) fL RDW Coeff of Jairon (11.5-14.5) % Plt Count (130-400) K/uL Absolute Nucleated RBC (0-0) K/uL Nucleated RBC % (auto) % Neutrophils % (Manual) % Lymphocytes % (Manual) % Monocytes % (Manual) % Metamyelocytes % (Man) % Myelocytes % (Man) % Neutrophils # (Manual) (1.4-6.5) K/uL Total Absolute Neuts (1.4-6.5) K/uL Lymphocytes # (Manual) (1.2-3.4) K/uL Total Abs Lymphocytes (1.2-3.4) K/uL Monocytes # (Manual) (0.11-0.59) K/uL Metamyelocytes # (Man) (0-0) K/uL Myelocytes # (Manual) (0-0) K/uL Hypogranular Neuts Platelet Estimate (Normal) Sodium (136-145) mmol/L Potassium (3.5-5.1) mmol/L Chloride (98-107) mmol/L Carbon Dioxide (21-32) mmol/L Anion Gap (3-11) BUN (7-18) mg/dl Creatinine (0.6-1.4) mg/dl Est Cr Clr Drug Dosing ml/min Est GFR ( Amer) ml/min Est GFR (Non-Af Amer) ml/min BUN/Creatinine Ratio (10-20) Glucose (70-99) mg/dl POC Glucose 99 122 H 113 H (70-99) mg/dl Calcium (8.5-10.1) mg/dl 09/23/21 09/23/21 09/22/21 Range/Units 07:22 07:22 21:03 WBC 14.90 H (4.8-10.8) K/uL RBC 3.35 L (4.7-6.1) M/uL Hgb 10.4 L (14.0-18.0) g/dL Hct 31.3 L (42-52) % MCV 93.4 (80-100) fL MCH 31.0 (25-34) pg MCHC 33.2 (32-36) g/dL RDW Std Deviation 51.5 H (36.4-46.3) fL RDW Coeff of Jairon 15.2 H (11.5-14.5) % Plt Count 47 L (130-400) K/uL Absolute Nucleated RBC 0.04 H (0-0) K/uL Nucleated RBC % (auto) 0.3 % Neutrophils % (Manual) 74.1 % Lymphocytes % (Manual) 5.2 % Monocytes % (Manual) 11.2 % Metamyelocytes % (Man) 1.7 % Myelocytes % (Man) 7.8 % Neutrophils # (Manual) 11.04 H (1.4-6.5) K/uL Total Absolute Neuts 11.04 H (1.4-6.5) K/uL Lymphocytes # (Manual) 0.77 L (1.2-3.4) K/uL Total Abs Lymphocytes 0.77 L (1.2-3.4) K/uL Monocytes # (Manual) 1.67 H (0.11-0.59) K/uL Metamyelocytes # (Man) 0.25 H (0-0) K/uL Myelocytes # (Manual) 1.16 H (0-0) K/uL Hypogranular Neuts 1+ Platelet Estimate Decreased L (Normal) Sodium 141 (136-145) mmol/L Potassium 4.2 (3.5-5.1) mmol/L Chloride 107 (98-107) mmol/L Carbon Dioxide 28 (21-32) mmol/L Anion Gap 6.0 (3-11) BUN 10 (7-18) mg/dl Creatinine 1.00 (0.6-1.4) mg/dl Est Cr Clr Drug Dosing 64.2 ml/min Est GFR ( Amer) 81.4 ml/min Est GFR (Non-Af Amer) 70.3 ml/min BUN/Creatinine Ratio 9.6 L (10-20) Glucose 118 H (70-99) mg/dl POC Glucose 119 H (70-99) mg/dl Calcium 7.5 L (8.5-10.1) mg/dl Medications Administered Current Inpatient Medications Albuterol (Albuterol Hfa 8 Gm Inhaler) 2 puffs INH Q6R PRN PRN Reason: Wheezing Stop: 10/14/21 19:10 Amiodarone HCl (Amiodarone 200 Mg Tab) 400 mg PO BIDM OMID Stop: 10/20/21 16:59 Last Admin: 09/23/21 17:11 Dose: 400 mg Documented by: Apixaban (Apixaban 5 Mg Tablet) 5 mg PO BID OMID Stop: 10/21/21 20:59 Last Admin: 09/23/21 09:38 Dose: 5 mg Documented by: Dextrose (Dextrose 50% 50 Ml Syringe) 25 - 50 ml IV UD PRN; Protocol PRN Reason: Hypoglycemia Protocol Stop: 10/18/21 05:57 Fluticasone/Vilanterol (Fluticasone/Vilanterol 100/25mcg 14 Puffs/Inhaler) 1 puffs INH DAILY OMID; Protocol Stop: 10/15/21 08:59 Last Admin: 09/23/21 09:43 Dose: 1 puffs Documented by: Glucagon (Glucagon For Inj 1 Mg Vial) 1 mg SQ UD PRN; Protocol PRN Reason: Hypoglycemia Protocol Stop: 10/18/21 05:57 Glucose (Glucose 10 Tabs/Tube) 4 - 8 tabs PO UD PRN; Protocol PRN Reason: Hypoglycemia Protocol Stop: 10/18/21 05:57 Glucose (Glucose 40% Gel 15 Gm Tube) 15 - 30 gm PO UD PRN; Protocol PRN Reason: Hypoglycemia Protocol Stop: 10/18/21 05:57 Hydromorphone HCl (Hydromorphone Inj 0.5 Mg/0.5 Ml Syr) 0.5 mg IV Q6H PRN PRN Reason: Pain Stop: 10/06/21 16:59 Last Admin: 09/23/21 13:14 Dose: 0.5 mg Documented by: Metronidazole (Flagyl) 500 mg in 100 mls @ 100 mls/hr IV Q8H OMID Stop: 09/26/21 09:59 Last Admin: 09/23/21 17:11 Dose: 100 mls/hr Documented by: Piperacillin Sod/Tazobactam (Sod 3.375 gm/ Dextrose) 115 mls @ 28.75 mls/hr IV Q8H [facility]; Protocol Stop: 09/27/21 19:59 Last Admin: 09/23/21 13:14 Dose: 28.8 mls/hr Documented by: Potassium Chloride/Sodium Chloride (1/2 Nss + 20meq Kcl 1000ml) 20 meq in 1,000 mls @ 50 mls/hr IV .Q20H OMID Stop: 10/18/21 10:29 Last Admin: 09/23/21 10:15 Dose: 50 mls/hr Documented by: Insulin Aspart (Insulin Aspart 100 Units/Ml 3 Ml Pen) 0 units SC ACHS OMID Stop: 10/20/21 11:59 Last Admin: 09/23/21 13:15 Dose: 4 units Documented by: Lansoprazole (Lansoprazole 30 Mg Soltab) 30 mg PO QAM OMID Stop: 10/17/21 14:44 Last Admin: 09/23/21 09:37 Dose: 30 mg Documented by: Metoprolol Tartrate (Metoprolol Tartrate 25 Mg Tab) 25 mg PO BID OMID Stop: 10/22/21 20:59 Last Admin: 09/23/21 09:39 Dose: 25 mg Documented by: Miscellaneous (Carbohydrates For Hypoglycemia ) 15 - 30 gm PO UD PRN PRN Reason: Hypoglycemia Protocol Stop: 10/18/21 05:57 Miscellaneous Information (Piperacill/Tazobac Consult Active) 1 ea N/A UD PRN PRN Reason: Consult Stop: 10/17/21 13:37 Raspberry (Raspberry Syrup 5 Ml Udp) 5 ml PO Q6H OMID Stop: 10/07/21 19:59 Last Admin: 09/23/21 17:10 Dose: 5 ml Documented by: Umeclidinium Enloe (Umeclidinium Enloe 62.5mcg/Blister 7 Puffs/Inhaler) 1 puffs INH DAILY OMID; Protocol Stop: 10/15/21 08:59 Last Admin: 09/23/21 09:42 Dose: 1 puffs Documented by: Vancomycin HCl (Vancomycin Hcl 500 Mg/10 Ml Soln) 500 mg PO Q6H OMID Stop: 10/07/21 19:59 Last Admin: 09/23/21 17:10 Dose: 500 mg Documented by: Zolpidem Tartrate (Zolpidem Tartrate 5 Mg Tab) 5 mg PO HS PRN PRN Reason: Sleep Stop: 10/19/21 21:42 Last Admin: 09/22/21 23:37 Dose: 5 mg Documented by:
[2021-09-23] MEDS: ZOLPIDEM TARTRATE 5 MG TAB PO PRN (22:51)
[2021-09-24] MEDS: metroNIDAZOLE 500 MG/100 ML BAG IV SCH ×3 (01:00→17:25)
[2021-09-24] MEDS: RASPBERRY SYRUP 5 ML UDP PO SCH ×4 (04:02→21:16)
[2021-09-24] MEDS: VANCOMYCIN HCL 500 MG/10 ML SOLN PO SCH ×4 (04:02→21:16)
[2021-09-24] MEDS: PIPERACILLIN/TAZOBACTAM 3.375 GM in DEXTROSE 5% 100 ML IV SCH ×3 (04:02→20:47)
[2021-09-24] MEDS: SODIUM CHLOR 0.45% + 20MEQ KCL 20 MEQ/1,000 ML BAG IV SCH (06:03)
--- NOTE | 2021-09-24 08:26 | Surgery Progress Note ---
Date of Service September 24, 2021 Assessment & Plan (1) S/P laparotomy: Plan: POD#7 Tolerating low residue diet. + ostomy output Continue dressing changes daily ABX continued for cdiff Transition to PO pain Out of bed as tolerates/PT/OT Admission and Anticipated Discharge Date Admission Date: September 14, 2021 Subjective Patient is tolerating a diet, no nausea/vomiting. + ostomy output. Endorses some belly pain and is using a pillow as a splint. Physical Exam Physical Exam: awake/alert Gastrointestinal (Abdomen): + ostomy output, midline incision c/d/i with betadine soaked dressing Results & Data ([facility]) Vital Signs (Past 12 Hours) Vital Signs Temp Pulse Pulse Pulse Resp BP Pulse Ox 09/24/21 07:39 83 09/24/21 07:34 37.1 C 86 18 147/68 H 96 09/24/21 03:21 37 C 66 16 159/74 H 96 09/23/21 23:58 83 09/23/21 23:12 37 C 74 18 170/79 H 96 PG Care Time/CCT Total # of Minutes Spent Total Time Spent with Patient: Total time spent is greater than 50% in coordination of care (as documented) at patient's floor/unit and/or counseling patient: Coding Level of Care Code None Diagnoses S/P laparotomy Z98.890
[2021-09-24] MEDS: AMIODARONE 200 MG TAB PO SCH ×2 (08:45→17:25)
[2021-09-24] MEDS: APIXABAN 5 MG TABLET PO SCH ×2 (08:45→20:50)
[2021-09-24] MEDS: UMECLIDINIUM BROMIDE 62.5MCG/BLISTER 7 PUFFS/INHALER INH SCH (08:45)
[2021-09-24] MEDS: METOPROLOL TARTRATE 25 MG TAB PO SCH ×2 (08:45→20:49)
[2021-09-24] MEDS: LANSOPRAZOLE 30 MG SOLTAB PO SCH (08:45)
[2021-09-24] MEDS: FLUTICASONE/VILANTEROL 100/25MCG 14 PUFFS/INHALER INH SCH (08:46)
[2021-09-24] MEDS: INSULIN ASPART 100 UNITS/ML 3 ML PEN SC SCH ×4 (08:47→21:15)
[2021-09-24] MEDS: oxyCODONE HCL IR 5 MG TAB (IMMEDIATE RELEASE) PO PRN (14:29)
[2021-09-24 20:24] LABS: Mean Corpuscular Hgb Conc 33.3 g/dL (32-36)
[2021-09-24 20:40] LABS: Hematocrit (blood only) 27.6 % (42-52); Hemoglobin 9.2 g/dL (14.0-18.0); Mean Corpuscular Volume 92.9 fL (80-100); RDW Coefficient of Variation 14.9 % (11.5-14.5); RDW Standard Deviation 50.6 fL (36.4-46.3); Red Blood Count 2.97 M/uL (4.7-6.1); White Blood Count 11.38 K/uL (4.8-10.8)
[2021-09-24 20:43] LABS: Platelet Count 68 K/uL (130-400); Platelet Estimate Decreased (Normal)
[2021-09-24 20:44] LABS: BUN Creatinine Ratio 8.5 (10-20); Calcium 7.3 mg/dl (8.5-10.1); Creatinine Clr Calc Pharmacy 52.9 ml/min; Est GFR (African American) 64.7 ml/min; Est GFR (Non-African American) 55.8 ml/min; Magnesium 1.6 mg/dl (1.8-2.4); Potassium 4.1 mmol/L (3.5-5.1)
[2021-09-24 20:58] LABS: Phosphorus 1.7 mg/dl (2.5-4.9)
[2021-09-24] MEDS: ZOLPIDEM TARTRATE 5 MG TAB PO PRN (22:52)
[2021-09-25] MEDS: metroNIDAZOLE 500 MG/100 ML BAG IV SCH ×3 (01:03→17:15)
[2021-09-25] MEDS: PIPERACILLIN/TAZOBACTAM 3.375 GM in DEXTROSE 5% 100 ML IV SCH ×3 (03:37→20:39)
[2021-09-25] MEDS: RASPBERRY SYRUP 5 ML UDP PO SCH ×4 (03:38→21:25)
[2021-09-25] MEDS: VANCOMYCIN HCL 500 MG/10 ML SOLN PO SCH ×4 (03:38→21:25)
--- NOTE | 2021-09-25 05:59 | Surgery Progress Note ---
Date of Service September 25, 2021 Assessment & Plan (1) S/P laparotomy: Plan: Patient with necrotizing colitis with C. difficile-subtotal colectomy by me Patient is coming along but very weak Tolerating his diet, will advance to regular Continuing with physical therapy On IV antibiotics for now P.o. pain meds Rehab/extended care when felt strong enough to even tolerate that Continue wound care, DC ALTAGRACIA drain Admission and Anticipated Discharge Date Admission Date: September 14, 2021 Results & Data ([facility]) Vital Signs (Past 12 Hours) Vital Signs Temp Pulse Pulse Resp BP Pulse Ox 09/25/21 05:06 36.6 C 82 18 144/70 H 93 09/25/21 02:25 73 09/24/21 22:40 37.0 C 72 20 175/83 H 96 09/24/21 19:30 36.8 C 78 20 143/71 H 96 PG Care Time/CCT Total # of Minutes Spent Total Time Spent with Patient: Total time spent is greater than 50% in coordination of care (as documented) at patient's floor/unit and/or counseling patient: Coding Level of Care Code None Diagnoses S/P laparotomy Z98.890
[2021-09-25 08:16] LABS: BUN Creatinine Ratio 8.8 (10-20); Calcium 7.6 mg/dl (8.5-10.1); Creatinine Clr Calc Pharmacy 57.2 ml/min; Est GFR (Non-African American) 61.3 ml/min; Magnesium 1.7 mg/dl (1.8-2.4); Potassium 4.3 mmol/L (3.5-5.1)
[2021-09-25 08:17] LABS: Hematocrit (blood only) 28.8 % (42-52); Hemoglobin 9.6 g/dL (14.0-18.0); Mean Corpuscular Hemoglobin 31.1 pg (25-34); Mean Corpuscular Hgb Conc 33.3 g/dL (32-36); Mean Corpuscular Volume 93.2 fL (80-100); Phosphorus 1.7 mg/dl (2.5-4.9); RDW Coefficient of Variation 15.2 % (11.5-14.5); RDW Standard Deviation 50.8 fL (36.4-46.3); Red Blood Count 3.09 M/uL (4.7-6.1); White Blood Count 10.82 K/uL (4.8-10.8)
[2021-09-25 08:20] LABS: Mean Platelet Volume 13.4 fL (7.4-10.4); Platelet Count 80 K/uL (130-400); Platelet Estimate Decreased (Normal)
[2021-09-25] MEDS: AMIODARONE 200 MG TAB PO SCH ×2 (08:47→17:14)
[2021-09-25] MEDS: METOPROLOL TARTRATE 25 MG TAB PO SCH ×2 (08:47→20:42)
[2021-09-25] MEDS: LANSOPRAZOLE 30 MG SOLTAB PO SCH (08:47)
[2021-09-25] MEDS: FLUTICASONE/VILANTEROL 100/25MCG 14 PUFFS/INHALER INH SCH (08:48)
[2021-09-25] MEDS: INSULIN ASPART 100 UNITS/ML 3 ML PEN SC SCH ×4 (08:50→21:24)
--- NOTE | 2021-09-25 09:17 | Hospitalist Progress Note ---
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 Chau) He was intubated and successfully extubated 09/18/2021 Appreciate ongoing surgical care Status post removal of NG tube and is started on PO diet Patient remains otherwise stable-we will advance diet as tolerated as per instruction from surgery Hypophosphatemia - d/t poor oral intake d/t surgery Replace and monitor (2) Atrial fibrillation: Plan: Noted to have A. fib with RVR Was seen by applied mathematician and amiodarone has been started Has been on oral amiodarone and the heart rate is improving Beta-beti dose has been increased to control blood pressure and heart rate (3) CAD (coronary artery disease): (4) Clostridium difficile colitis: Plan: 80 y/o M w/CAD, chronic respiratory failure with hypoxemia due to asbestosis and COPD (on 2-4 L of oxygen at baseline), HTN, HLD, CKD, and MIGDALIA who presented to the ED with progressive abdominal distention and loss of appetite over the past 2-[address] a/p: Prominent colonic gas without evidence of small bowel obstruction or volvulus. Prominence of the appendix, new from prior exam. Clinical correlation is recommended for acute appendicitis.3. Infrarenal abdominal aortic aneurysm measures 28 mm in diameter, slightly increased from prior exam where it measured 24 mm in diameter. KUB: 09/15: Gaseous distended loops of large and small bowel suggest ileus versus distal obstruction. Continued follow-up recommended KUB 09/17: light increase in gaseous distention of the colon. Mild small bowel dilatation. The findings could reflect an ileus or distal obstruction BC NGTD Cdiff positive Per admitting physician C Difficile Colitis Pseudo obstruction wbc 20.91-->32.76k--43.6k PO vanco increased, vanco enemas added along with IV flagyl OR for ex lap and possible bowel resection NGT with [facility] pharmacy and landscaping and groundskeeping laborer consulted for PPN to start post op Has been on vancomycin for C. difficile infection (5) Acute kidney injury superimposed on CKD: Plan: A/C CKD-3 bun 44/cr 1.35 monitor daily labs continue IVF Creatinine normalized (now Cr 1-1.2) (6) Chronic obstructive pulmonary disease: Plan: Chronic respiratory failure with hypoxemia due to COPD/Asbestosis ( 2-4L of O2 at baseline) continue home inhalers stable-continue oxygen for now (7) Chronic respiratory failure with hypoxia: (8) Hypertension: Plan: HTN atenolol on hold and continue verapamil bp stable (9) DVT prophylaxis: Plan: Hypoalbuminemia in setting of acute illness pharmacy and landscaping and groundskeeping laborer on board for PPN now on oral diet MIGDALIA 4L of O2 at HS DVT ppx: Eliquis 5 mg twice daily Dispo: medical telemetry unit DNR/DNI PCP: Louis Nice Admission and Anticipated Discharge Date Admission Date: September 14, 2021 Subjective Pt w/ prolonged hospital stay, admitted w/ toxic megacolon d/t c. dff. Underwent ex lap, partial colectomy. Post surgery in ICU, extubated 1 week ago. Developed Afib w/ RVR, now on oral amiodarone and Eliquis. NG tube removed and pt is tolerating PO diet. Cont. on antibiotics. Currently in room 260 Followed closely by surgery and wound care, clinical nurse manager Pt has no complaints Specifically denies any chest pain, shortness of breath, sign. abd. pain (however reports abd. pain w/ movement or cough) He is tolerating diet Reports feeling comfortable Cont. to be on suppl. O2 via [place] Review of Systems Review of Systems: All systems reviewed & are unremarkable except as noted in Subjective Physical Exam Physical Exam: Physical Exam: Lying in bed with minimal discomfort due to abdominal discomfort Constitutional:L well developed and well nourished; n o acute distress Eyes: + anicteric scler ae Neck: trachea midline Respiratory: no respiratory dis tress and does not use accessory mus cles Auscultation : + diminished dimas g sounds; no rhonc hi and no wheezes Cardiovascular:L Rate/Rhythm: + irr egularly irregular Vessels: radial pulses present Ex tremities: normal capillary refill; no edema Gastrointestinal ( Abdomen): Inspection/Auscult ation: + abdomen d istended (but soft ) and + hypoactive bowel sounds Per cussion/Palpation: + abdomen tender (minimal diffuse i n LQ bilaterally), no guarding, post . surg. dressings applied Musculoskeletal: Head/Neck/Chest: n ormocephalic, head atraumatic and ne ck supple Skin: no jaundice Neurologic: moves all extremit ies; no focal holly r deficits and not confused Psychiatric: A+Ox3, euthymic af fect Lymphatic: Results & Data Results & Data ([facility]) Vital Signs (Past 12 Hours) Vital Signs Temp Pulse Pulse Resp BP Pulse Ox 09/25/21 07:45 80 09/25/21 07:27 36.9 C 83 20 146/77 H 96 09/25/21 05:06 36.6 C 82 18 144/70 H 93 09/25/21 02:25 73 09/24/21 22:40 37.0 C 72 20 175/83 H 96 Medications Administered Current Inpatient Medications Albuterol (Albuterol Hfa 8 Gm Inhaler) 2 puffs INH Q6R PRN PRN Reason: Wheezing Stop: 10/14/21 19:10 Amiodarone HCl (Amiodarone 200 Mg Tab) 400 mg PO BIDM OMID Stop: 10/20/21 16:59 Last Admin: 09/25/21 08:47 Dose: 400 mg Documented by: Apixaban (Apixaban 5 Mg Tablet) 5 mg PO BID OMID Stop: 10/21/21 20:59 Last Admin: 09/24/21 20:50 Dose: 5 mg Documented by: Dextrose (Dextrose 50% 50 Ml Syringe) 25 - 50 ml IV UD PRN; Protocol PRN Reason: Hypoglycemia Protocol Stop: 10/18/21 05:57 Fluticasone/Vilanterol (Fluticasone/Vilanterol 100/25mcg 14 Puffs/Inhaler) 1 puffs INH DAILY OMID; Protocol Stop: 10/15/21 08:59 Last Admin: 09/25/21 08:48 Dose: 1 puffs Documented by: Glucagon (Glucagon For Inj 1 Mg Vial) 1 mg SQ UD PRN; Protocol PRN Reason: Hypoglycemia Protocol Stop: 10/18/21 05:57 Glucose (Glucose 10 Tabs/Tube) 4 - 8 tabs PO UD PRN; Protocol PRN Reason: Hypoglycemia Protocol Stop: 10/18/21 05:57 Glucose (Glucose 40% Gel 15 Gm Tube) 15 - 30 gm PO UD PRN; Protocol PRN Reason: Hypoglycemia Protocol Stop: 10/18/21 05:57 Hydromorphone HCl (Hydromorphone Inj 0.5 Mg/0.5 Ml Syr) 0.5 mg IV Q6H PRN PRN Reason: Pain Stop: 10/06/21 16:59 Last Admin: 09/23/21 13:14 Dose: 0.5 mg Documented by: Metronidazole (Flagyl) 500 mg in 100 mls @ 100 mls/hr IV Q8H OMID Stop: 09/26/21 09:59 Last Infusion: 09/25/21 02:05 Dose: Infused Documented by: Piperacillin Sod/Tazobactam (Sod 3.375 gm/ Dextrose) 115 mls @ 28.75 mls/hr IV Q8H [facility]; Protocol Stop: 09/27/21 19:59 Last Infusion: 09/25/21 07:37 Dose: Infused Documented by: Insulin Aspart (Insulin Aspart 100 Units/Ml 3 Ml Pen) 0 units SC ACHS OMID Stop: 10/20/21 11:59 Last Admin: 09/25/21 08:50 Dose: 3 units Documented by: Lansoprazole (Lansoprazole 30 Mg Soltab) 30 mg PO QAM OMID Stop: 10/17/21 14:44 Last Admin: 09/25/21 08:47 Dose: 30 mg Documented by: Metoprolol Tartrate (Metoprolol Tartrate 25 Mg Tab) 25 mg PO BID OMID Stop: 10/22/21 20:59 Last Admin: 09/25/21 08:47 Dose: 25 mg Documented by: Miscellaneous (Carbohydrates For Hypoglycemia ) 15 - 30 gm PO UD PRN PRN Reason: Hypoglycemia Protocol Stop: 10/18/21 05:57 Miscellaneous Information (Piperacill/Tazobac Consult Active) 1 ea N/A UD PRN PRN Reason: Consult Stop: 10/17/21 13:37 Oxycodone HCl (Oxycodone Hcl Ir 5 Mg Tab (Immediate Release)) 5 mg PO Q4H PRN PRN Reason: Pain Stop: 10/08/21 08:26 Last Admin: 09/24/21 14:29 Dose: 5 mg Documented by: Raspberry (Raspberry Syrup 5 Ml Udp) 5 ml PO Q6H OMID Stop: 10/07/21 19:59 Last Admin: 09/25/21 03:38 Dose: 5 ml Documented by: Umeclidinium Floral (Umeclidinium Floral 62.5mcg/Blister 7 Puffs/Inhaler) 1 puffs INH DAILY OMID; Protocol Stop: 10/15/21 08:59 Last Admin: 09/24/21 08:45 Dose: 1 puffs Documented by: Vancomycin HCl (Vancomycin Hcl 500 Mg/10 Ml Soln) 500 mg PO Q6H OMID Stop: 10/07/21 19:59 Last Admin: 09/25/21 03:38 Dose: 500 mg Documented by: Zolpidem Tartrate (Zolpidem Tartrate 5 Mg Tab) 5 mg PO HS PRN PRN Reason: Sleep Stop: 10/19/21 21:42 Last Admin: 09/24/21 22:52 Dose: 5 mg Documented by:
[2021-09-25] MEDS: APIXABAN 5 MG TABLET PO SCH ×2 (12:44→20:43)
[2021-09-25] MEDS: UMECLIDINIUM BROMIDE 62.5MCG/BLISTER 7 PUFFS/INHALER INH SCH (12:44)
[2021-09-25] MEDS: POT PHOSPHATE MONOBASIC W/ SOD TAB PO SCH ×3 (17:08→20:42)
[2021-09-25] MEDS: oxyCODONE HCL IR 5 MG TAB (IMMEDIATE RELEASE) PO PRN (17:10)
--- NOTE | 2021-09-25 18:24 | Hospitalist Progress Note ---
Date of Service September 25, 2021 Assessment & Plan (1) Toxic megacolon due to Clostridioides difficile: (2) S/P laparotomy: (3) Atrial fibrillation: Plan: 80 y/o M w/CAD, chronic respiratory failure with hypoxemia due to asbestosis and COPD (on 4 L of oxygen at baseline), HTN, HLD, CKD, and MIGDALIA who presented to the ED 09/14 with progressive abdominal distention and loss of appetite over the past 2-3 weeks [employer]. 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 Necrotizing colitis - - > continue with Zosyn Admitting CT a/p:Prominent colonic gas without evidence of small bowel obstruction or volvulus. Prominence of the appendix, new from prior exam. Clinical correlation is recommended for acute appendicitis.3. Infrarenal abdominal aortic aneurysm measures 28 mm in diameter, slightly increased from prior exam where it measured 24 mm in diameter. KUB: 09/15: Gaseous distended loops of large and small bowel suggest ileus versus distal obstruction. Continued follow-up recommended KUB 09/17: light increase in gaseous distention of the colon. Mild small bowel dilatation. The findings could reflect an ileus or distal obstruction BC NGTD Cdiff positive --> continue with vancomycin and IV metronidazole, will get in touch with GI for further recs/DC recs. S/p exploratory laparotomy, subtotal colectomy and end ileostomy On 09/17/2021 (Dr. Chau) He was intubated and successfully extubated 09/18/2021 Appreciate ongoing surgical care Status post removal of NG tube and is started on PO diet, patient tolerating diet well. Diet advancement per surgery. Abdominal incision looks clean with no drainage, wound VAC placed 09/25, continue wound care. PT/OT, will need rehab upon discharge. #. Electrolytes abnormality Likely secondary to decreased p.o. intake and recent surgery Monitor daily and replete as appropriate #. Atrial fibrillation/ CAD Noted to have A. fib with RVR Was seen by preform machine operator and amiodarone has been started. Per cardiology, amiodarone 400 twice a day for 7 days followed by 200 mg daily [from September 29 ]. Follow-up cardiology 4 weeks after discharge to determine duration of amiodarone therapy. Has been on oral amiodarone and the heart rate is improving Beta-beti dose has been increased to control blood pressure and heart rate #. Acute kidney injury superimposed on CKD: Resolved, continue to monitor as needed. #. Chronic obstructive pulmonary disease: #. Chronic respiratory failure Chronic respiratory failure with hypoxemia due to COPD/Asbestosis ( 2-4L of O2 at baseline) continue home inhalers stable-continue oxygen for now #. Hypertension: atenolol on hold and continue verapamil bp stable #. DVT prophylaxis: On Eliquis #. 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 Patient needs placement. Surgery working on his diet, patient tolerating diet, being advanced to regular diet. DC planning uncertain. Admission and Anticipated Discharge Date Admission Date: September 14, 2021 Subjective Patient was lying in bed, NAD, on 2 L nasal cannula oxygen, no new acute events overnight per RN. Patient reports tolerating diet but his appetite is low which has been like that since last 1 year per patient. Per RN, patient moved out of the bed and ate some breakfast in the morning. Patient reports belly pain at incision site under control. Patient denies headache/dizziness/chills/sore throat/cough/chest pain/ increased shortness of breath/other review of symptoms. Per RN, having good output in stoma bag. Physical Exam Physical Exam: GENERAL: Alert and oriented x3. NAD, on 4L HEENT: No pallor, no icterus. Pupils equal, round and reactive to light. Oral mucosa moist. NECK: No JVD, no neck masses. HEART: S1 and S2 heard. Regular rate and rhythm. No murmur, no gallop. RESPIRATORY SYSTEM: Normal AP diameter. No accessory muscle use. No wheezing, no crackles. ABDOMEN: Soft, bowel sounds present, nontender, no distention. Stoma with minimal collection in bag. Midline incision --clean looking with no drainage with wound vac in place. CENTRAL NERVOUS SYSTEM: Alert and oriented x3. No facial droop. Speech is clear. Obeys simple commands. Moves extremities. EXTREMITIES: 1+ BLE edema, no erythema seen. UCather with yellow urine collection in bag. Results & Data Results & Data ([facility]) Vital Signs (Past 12 Hours) Vital Signs Temp Pulse Pulse Resp BP Pulse Ox 09/25/21 10:59 36.5 C 88 20 134/69 99 09/25/21 07:45 80 09/25/21 07:27 36.9 C 83 20 146/77 H 96
[2021-09-25] MEDS: MAGNESIUM OXIDE 400 MG TAB PO SCH (20:40)
[2021-09-25] MEDS: ZOLPIDEM TARTRATE 5 MG TAB PO PRN (22:41)
[2021-09-26] MEDS: metroNIDAZOLE 500 MG/100 ML BAG IV SCH (01:00)
[2021-09-26] MEDS: VANCOMYCIN HCL 500 MG/10 ML SOLN PO SCH ×3 (04:40→16:36)
[2021-09-26] MEDS: PIPERACILLIN/TAZOBACTAM 3.375 GM in DEXTROSE 5% 100 ML IV SCH ×3 (04:40→21:40)
[2021-09-26] MEDS: RASPBERRY SYRUP 5 ML UDP PO SCH ×3 (04:40→16:36)
--- NOTE | 2021-09-26 08:05 | Surgery Progress Note ---
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 Can be DC'd from a surgical standpoint, may need urology if needs to be replaced-can remove when okay with the medical team Admission and Anticipated Discharge Date Admission Date: September 14, 2021 Results & Data ([facility]) Vital Signs (Past 12 Hours) Vital Signs Temp Pulse Pulse Resp BP Pulse Ox 09/26/21 07:24 37.0 C 83 20 126/66 94 09/26/21 03:30 36.8 C 75 20 126/68 92 09/26/21 00:00 73 09/25/21 23:00 37.0 C 69 20 151/78 H 97 PG Care Time/CCT Total # of Minutes Spent Total Time Spent with Patient: Total time spent is greater than 50% in coordination of care (as documented) at patient's floor/unit and/or counseling patient: Coding Level of Care Code None Diagnoses S/P laparotomy Z98.890
[2021-09-26 08:44] LABS: Hematocrit (blood only) 28.3 % (42-52); Hemoglobin 9.2 g/dL (14.0-18.0); Mean Corpuscular Hemoglobin 30.3 pg (25-34); Mean Corpuscular Hgb Conc 32.5 g/dL (32-36); Mean Corpuscular Volume 93.1 fL (80-100); Mean Platelet Volume 13.6 fL (7.4-10.4); Platelet Count 103 K/uL (130-400); Platelet Estimate Decreased (Normal); RDW Coefficient of Variation 15.6 % (11.5-14.5); RDW Standard Deviation 51.1 fL (36.4-46.3); Red Blood Count 3.04 M/uL (4.7-6.1)
[2021-09-26 08:48] LABS: BUN Creatinine Ratio 9.3 (10-20); Calcium 7.4 mg/dl (8.5-10.1); Creatinine Clr Calc Pharmacy 61.9 ml/min; Est GFR (African American) 79.5 ml/min; Est GFR (Non-African American) 68.6 ml/min; Magnesium 1.8 mg/dl (1.8-2.4); Phosphorus 2.4 mg/dl (2.5-4.9)
[2021-09-26] MEDS: APIXABAN 5 MG TABLET PO SCH ×2 (09:06→22:18)
[2021-09-26] MEDS: AMIODARONE 200 MG TAB PO SCH ×2 (09:06→17:39)
[2021-09-26] MEDS: MAGNESIUM OXIDE 400 MG TAB PO SCH ×2 (09:07→22:18)
[2021-09-26] MEDS: LANSOPRAZOLE 30 MG SOLTAB PO SCH (09:07)
[2021-09-26] MEDS: POT PHOSPHATE MONOBASIC W/ SOD TAB PO SCH ×6 (09:09→22:19)
[2021-09-26] MEDS: METOPROLOL TARTRATE 25 MG TAB PO SCH ×2 (09:09→22:20)
[2021-09-26] MEDS: UMECLIDINIUM BROMIDE 62.5MCG/BLISTER 7 PUFFS/INHALER INH SCH (09:10)
[2021-09-26] MEDS: FLUTICASONE/VILANTEROL 100/25MCG 14 PUFFS/INHALER INH SCH (09:10)
[2021-09-26] MEDS: INSULIN ASPART 100 UNITS/ML 3 ML PEN SC SCH ×4 (09:11→22:20)
[2021-09-26] MEDS: oxyCODONE HCL IR 5 MG TAB (IMMEDIATE RELEASE) PO PRN ×2 (10:52→17:34)
--- NOTE | 2021-09-26 16:52 | Hospitalist Progress Note ---
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 Necrotizing colitis - - > continue with Zosyn Admitting CT a/p:Prominent colonic gas without evidence of small bowel obstruction or volvulus. Prominence of the appendix, new from prior exam. Clinical correlation is recommended for acute appendicitis.3. Infrarenal abdominal aortic aneurysm measures 28 mm in diameter, slightly increased from prior exam where it measured 24 mm in diameter. KUB: 09/15: Gaseous distended loops of large and small bowel suggest ileus versus distal obstruction. Continued follow-up recommended KUB 09/17: light increase in gaseous distention of the colon. Mild small bowel dilatation. The findings could reflect an ileus or distal obstruction BC NGTD Cdiff positive --> d/w GI 09/26, recommended switching to Dificid 200 mg BD x 10 days, GI to re-eval pt tomorrow. S/p exploratory laparotomy, subtotal colectomy and end ileostomy On 09/17/2021 (Dr. Chau) He was intubated and successfully extubated 09/18/2021 Appreciate ongoing surgical care ---> DC'd ALTAGRACIA drain; Can Be DC'd from their POV. Patient tolerating diet well. Abdominal incision looks clean with no drainage, wound VAC placed 09/25, continue wound care. PT/OT, will need rehab upon discharge. #. Electrolytes abnormality Likely secondary to decreased p.o. intake and recent surgery Monitor daily and replete as appropriate #. Atrial fibrillation/ CAD Noted to have A. fib with RVR Was seen by associate team physician and amiodarone has been started. Per cardiology, amiodarone 400 twice a day for 7 days followed by 200 mg daily [from September 29]. Follow-up cardiology 4 weeks after discharge to determine duration of amiodarone therapy. Has been on oral amiodarone and the heart rate is improving Beta-beti dose has been increased to control blood pressure and heart rate #. Acute kidney injury superimposed on CKD: Resolved, continue to monitor as needed. #. Chronic obstructive pulmonary disease: #. Chronic respiratory failure Chronic respiratory failure with hypoxemia due to COPD/Asbestosis ( 2-4L of O2 at baseline) continue home inhalers stable-continue oxygen for now #. Hypertension: atenolol on hold and continue verapamil bp stable #. DVT prophylaxis: On Eliquis #. Hypoalbuminemia in setting of acute illness pharmacy and web site designer on board for PPN now on oral diet OSA4L of O2 at HS DVT ppx: Eliquis 5 mg twice daily Dispo:medical telemetry unit DNR/DNI PCP:Louis Nice Disposition: Patient making progress with physical therapy,, PT/OT while inpatient. Patient needs placement. Per surgery, patient is stable to go. Medically stable to go. GI to reevaluate him tomorrow, patient is awaiting placement. Patient will need follow-up with PCP/GI/surgery/cardiology as an ou tpatient. Admission and Anticipated Discharge Date Admission Date: September 14, 2021 Subjective Patient was lying in bed, NAD, on 4 L nasal cannula oxygen, no new acute events overnight per RN. Patient is tolerating regular diet, though his appetite has been chronically low. Patient denies headache/dizziness/chills/sore throat/cough/chest pain/ increased shortness of breath/other review of symptoms. Per RN, having good output in stoma bag. Patient anxious/reluctant to learn stoma care, try to recounsell the patient on the need to long-term management of stoma care by self going forward. Pt states he will gonna have to need help all the time with this. Physical Exam Physical Exam: GENERAL: Alert and oriented x3. NAD, on 4L HEENT: No pallor, no icterus. Pupils equal, round and reactive to light. Oral mucosa moist. NECK: No JVD, no neck masses. HEART: S1 and S2 heard. Regular rate and rhythm. No murmur, no gallop. RESPIRATORY SYSTEM: Normal AP diameter. No accessory muscle use. No wheezing, no crackles. ABDOMEN: Soft, bowel sounds present, nontender, no distention. Stoma with nonbloody fecal collection in bag. Midline incision --clean looking with no drainage with wound vac in place. CENTRAL NERVOUS SYSTEM: Alert and oriented x3. No facial droop. Speech is clear. Obeys simple commands. Moves extremities. EXTREMITIES: 1+ BLE edema, no erythema seen. UCather with yellow urine collection in bag. Results & Data Results & Data ([facility]) Vital Signs (Past 12 Hours) Vital Signs Temp Pulse Resp BP BP Pulse Ox 09/26/21 11:12 36.6 C 83 18 127/70 98 09/26/21 07:24 37.0 C 83 20 126/66 94
[2021-09-26] MEDS: FIDAXOMICIN 200 MG TAB PO SCH (22:18)
[2021-09-26] MEDS: ZOLPIDEM TARTRATE 5 MG TAB PO PRN (23:16)
[2021-09-27] MEDS: PIPERACILLIN/TAZOBACTAM 3.375 GM in DEXTROSE 5% 100 ML IV SCH ×2 (03:23→12:34)
[2021-09-27 07:24] LABS: Hematocrit (blood only) 27.4 % (42-52); Mean Corpuscular Hemoglobin 31.1 pg (25-34); Mean Corpuscular Hgb Conc 32.8 g/dL (32-36); Mean Corpuscular Volume 94.8 fL (80-100); Mean Platelet Volume 12.6 fL (7.4-10.4); Platelet Count 104 K/uL (130-400); RDW Standard Deviation 52.5 fL (36.4-46.3); Red Blood Count 2.89 M/uL (4.7-6.1); White Blood Count 8.85 K/uL (4.8-10.8)
[2021-09-27 07:38] LABS: BUN Creatinine Ratio 7.4 (10-20); Calcium 7.9 mg/dl (8.5-10.1); Creatinine Clr Calc Pharmacy 58.7 ml/min; Est GFR (African American) 74.2 ml/min; Magnesium 1.8 mg/dl (1.8-2.4); Potassium 3.6 mmol/L (3.5-5.1)
[2021-09-27 07:39] LABS: Phosphorus 2.9 mg/dl (2.5-4.9)
[2021-09-27] MEDS: FIDAXOMICIN 200 MG TAB PO SCH ×2 (07:50→20:21)
[2021-09-27] MEDS: METOPROLOL TARTRATE 25 MG TAB PO SCH ×2 (07:50→20:15)
[2021-09-27] MEDS: APIXABAN 5 MG TABLET PO SCH ×2 (07:50→20:15)
[2021-09-27] MEDS: MAGNESIUM OXIDE 400 MG TAB PO SCH ×3 (07:50→20:15)
[2021-09-27] MEDS: POT PHOSPHATE MONOBASIC W/ SOD TAB PO SCH ×3 (07:50→20:16)
[2021-09-27] MEDS: LANSOPRAZOLE 30 MG SOLTAB PO SCH (07:51)
[2021-09-27] MEDS: UMECLIDINIUM BROMIDE 62.5MCG/BLISTER 7 PUFFS/INHALER INH SCH (07:52)
[2021-09-27] MEDS: AMIODARONE 200 MG TAB PO SCH ×2 (07:52→18:12)
[2021-09-27] MEDS: FLUTICASONE/VILANTEROL 100/25MCG 14 PUFFS/INHALER INH SCH (07:52)
[2021-09-27] MEDS: INSULIN ASPART 100 UNITS/ML 3 ML PEN SC SCH ×3 (08:42→18:21)
[2021-09-27] MEDS ORDERED: POTASSIUM CHLORIDE CRTAB 20 MEQ TABCR PO STA (10:05)
--- NOTE | 2021-09-27 10:31 | Gastroenterology Progress Note ---
Date of Service September 27, 2021 Assessment & Plan (1) Clostridium difficile colitis: Plan: -Dificid 200 mg BID x 10 days -Would recommend Florastor 250 mg BID at opposite times of Dificid dosing Admission and Anticipated Discharge Date Admission Date: September 14, 2021 Supervising Physician Co-Signing Physician Notes Agree with AMBROSIO Ibrahim as above Abd: Soft, NT, ND, Ostomy draining brown semi-solid stool Continue current therapy Continue supportive care Subjective Patient is an 80 yo male with C diff and toxic megacolon who underwent a subtotal colectomy and end ileostomy. He notes formed output coming from his ostomy. He denies bloody output. He denies significant abdominal pain or discomfort. He offers no further complaints or concerns. Review of Systems Constitutional: no fever and no chills Respiratory: no cough and no dyspnea Cardiovascular: no chest pain Gastrointestinal: no abdominal pain, no diarrhea/loose stools and no blood in stools Physical Exam Constitutional: WD/WN, vitals as above Respiratory: normal respiratory effort Gastrointestinal (Abdomen): Inspection/Auscultation: abdomen not distended Percussion/Palpation: abdomen nontender ostomy in place, non-bloody formed stool Results & Data Results & Data ([facility]) Vital Signs (Past 12 Hours) Vital Signs Temp Pulse Pulse Resp BP BP Pulse Ox 09/27/21 06:48 36.7 C 75 20 129/65 92 09/27/21 04:12 36.4 C L 71 18 153/73 H 98 09/26/21 23:52 36.7 C 82 20 149/69 H 98 09/26/21 22:32 83 PG Care Time/CCT Total # of Minutes Spent Total Time Spent with Patient: Total time spent is greater than 50% in coordination of care (as documented) at patient's floor/unit and/or counseling patient: Coding Level of Care Code 66134 Subseq Hosp Care Lvl 2 Diagnoses Clostridium difficile colitis A04.72
--- NOTE | 2021-09-27 11:13 | Surgery Progress Note ---
Date of Service September 27, 2021 Assessment & Plan (1) Status post laparotomy: Plan: Status post subtotal colectomy for necrotizing colitis with C. difficile Plan: No acute changes from surgical standpoint Continue regular diet Continue PT OT To Center care when bed available Dr. Mijares is covering over the weekend Admission and Anticipated Discharge Date Admission Date: September 14, 2021 Results & Data ([facility]) Vital Signs (Past 12 Hours) Vital Signs Temp Pulse Resp BP BP Pulse Ox 09/27/21 06:48 36.7 C 75 20 129/65 92 09/27/21 04:12 36.4 C L 71 18 153/73 H 98 09/26/21 23:52 36.7 C 82 20 149/69 H 98 PG Care Time/CCT Total # of Minutes Spent Total Time Spent with Patient: Total time spent is greater than 50% in coordination of care (as documented) at patient's floor/unit and/or counseling patient: Coding Level of Care Code None Diagnoses Status post laparotomy Z98.890
--- NOTE | 2021-09-27 17:06 | Hospitalist Progress Note ---
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 Necrotizing colitis - - > continue with Zosyn Admitting CT a/p:Prominent colonic gas without evidence of small bowel obstruction or volvulus. Prominence of the appendix, new from prior exam. Clinical correlation is recommended for acute appendicitis.3. Infrarenal abdominal aortic aneurysm measures 28 mm in diameter, slightly increased from prior exam where it measured 24 mm in diameter. KUB: 09/15: Gaseous distended loops of large and small bowel suggest ileus versus distal obstruction. Continued follow-up recommended KUB 09/17: light increase in gaseous distention of the colon. Mild small bowel dilatation. The findings could reflect an ileus or distal obstruction BC NGTD Cdiff positive --> d/w GI 09/26, continue with Dificid 200 mg twice daily 09/26 and Florastor 250 mg twice daily 09/27---> total of 10 days per report. S/p exploratory laparotomy, subtotal colectomy and end ileostomy On 09/17/2021 (Dr. Chau) He was intubated and successfully extubated 09/18/2021 Appreciate ongoing surgical care ---> Can Be DC'd from their POV. Patient tolerating diet well. Abdominal incision looks clean with no drainage, wound VAC placed 09/25, continue wound care. #. Atrial fibrillation/ CAD Noted to have A. fib with RVR Was seen by dance choreographer and amiodarone has been started. Per cardiology, amiodarone 400 twice a day for 7 days followed by 200 mg daily [from September 29]. Follow-up cardiology 4 weeks after discharge to determine duration of amiodarone therapy. Has been on oral amiodarone and the heart rate is improving Beta-beti dose has been increased to control blood pressure and heart rate PT/OT, will need rehab upon discharge. #. Electrolytes abnormality Likely secondary to decreased p.o. intake and recent surgery Monitor daily and replete as appropriate #. Acute kidney injury superimposed on CKD: Resolved, continue to monitor as needed. #. Chronic obstructive pulmonary disease: #. Chronic respiratory failure Chronic respiratory failure with hypoxemia due to COPD/Asbestosis ( 2-4L of O2 at baseline) continue home inhalers stable-continue oxygen for now #. Hypertension: atenolol on hold and continue verapamil bp stable #. DVT prophylaxis: On Eliquis #. Hypoalbuminemia in setting of acute illness pharmacy and flight purser on board for PPN now on oral diet OSA4L of O2 at HS DVT ppx: Eliquis 5 mg twice daily Dispo:medical telemetry unit DNR/DNI PCP:Louis Nice Disposition: Patient making progress with physical therapy,, PT/OT while inpatient. Patient needs placement. Per surgery, patient is stable to go. Medically stable to go. patient is awaiting placement. Patient will need follow-up with PCP/GI/surgery/cardiology as an outpatient. Admission and Anticipated Discharge Date Admission Date: September 14, 2021 Subjective Patient was lying in bed, on 4 L nasal cannula oxygen, NAD, no new acute events overnight. Patient was eating his lunch. Patient denies any new events overnight. Patient tolerating diet well. Patient denies h eadache/dizziness/chest pain/palpitation/belly pain/other review of symptoms. Physical Exam Physical Exam: GENERAL: Alert and oriented x3. NAD, on 4L HEENT: No pallor, no icterus. Pupils equal, round and reactive to light. Oral mucosa moist. NECK: No JVD, no neck masses. HEART: S1 and S2 heard. Regular rate and rhythm. No murmur, no gallop. RESPIRATORY SYSTEM: Normal AP diameter. No accessory muscle use. No wheezing, no crackles. ABDOMEN: Soft, bowel sounds present, nontender, no distention. Stoma with nonbloody fecal collection in bag. Midline incision --clean looking with no drainage with wound vac in place. CENTRAL NERVOUS SYSTEM: No facial droop. Speech is clear. Obeys simple com mands. Moves extremities. EXTREMITIES: 1+ BLE edema, no erythema seen. Results & Data Results & Data ([facility]) Vital Signs (Past 12 Hours) Vital Signs Temp Pulse Resp BP BP Pulse Ox 09/27/21 15:17 36.7 C 81 20 134/67 97 09/27/21 12:05 36.9 C 76 20 115/65 99 09/27/21 06:48 36.7 C 75 20 129/65 92
[2021-09-27] MEDS: oxyCODONE HCL IR 5 MG TAB (IMMEDIATE RELEASE) PO PRN (20:21)
[2021-09-27] MEDS: SACCHAROMYCES BOULARDII 250 MG CAP PO SCH (23:54)
[2021-09-27] MEDS: ZOLPIDEM TARTRATE 5 MG TAB PO PRN (23:54)
[2021-09-28] MEDS: FIDAXOMICIN 200 MG TAB PO SCH ×2 (06:16→17:56)
[2021-09-28] MEDS: POT PHOSPHATE MONOBASIC W/ SOD TAB PO SCH ×3 (07:46→21:00)
[2021-09-28] MEDS: METOPROLOL TARTRATE 25 MG TAB PO SCH ×2 (07:47→21:00)
[2021-09-28] MEDS: SACCHAROMYCES BOULARDII 250 MG CAP PO SCH ×2 (07:47→22:09)
[2021-09-28] MEDS: LANSOPRAZOLE 30 MG SOLTAB PO SCH (07:47)
[2021-09-28] MEDS: AMIODARONE 200 MG TAB PO SCH ×2 (07:47→17:47)
[2021-09-28] MEDS: APIXABAN 5 MG TABLET PO SCH ×2 (07:47→21:00)
[2021-09-28] MEDS: FLUTICASONE/VILANTEROL 100/25MCG 14 PUFFS/INHALER INH SCH (07:48)
[2021-09-28] MEDS: UMECLIDINIUM BROMIDE 62.5MCG/BLISTER 7 PUFFS/INHALER INH SCH (07:48)
[2021-09-28] MEDS: MAGNESIUM OXIDE 400 MG TAB PO SCH ×2 (07:48→21:00)
[2021-09-28 07:53] LABS: Hematocrit (blood only) 27.3 % (42-52); Hemoglobin 8.8 g/dL (14.0-18.0)
--- NOTE | 2021-09-28 11:26 | Surgery Progress Note ---
Date of Service September 28, 2021 Assessment & Plan (1) S/P laparotomy: Plan: POD#11 subtotal colectomy and ileostomy for toxic megacolon. Improving. On regular diet, ostomy functioning. Labs stable. No new recommendations. Admission and Anticipated Discharge Date Admission Date: September 14, 2021 Subjective No new complaints. Low appetite but no nausea or vomiting. Ostomy is functioning. Wound vac in place. Physical Exam Constitutional: looks well, VS as above Respiratory: no use of accessory muscles, on baseline oxygen Gastrointestinal (Abdomen): soft, wound vac in place, ostomy viable and functioning with gas/ stool in bag, pos bowel tones Neurologic: alert, oriented Results & Data ([facility]) Vital Signs (Past 12 Hours) Vital Signs Temp Pulse Pulse Resp BP BP Pulse Ox 09/28/21 08:22 36.7 C 79 22 145/67 H 96 09/28/21 04:06 36.6 C 76 18 149/69 H 96 09/28/21 02:26 67 09/28/21 00:07 36.7 C 69 18 133/68 96 Laboratory Results Abnormal lab results 09/27/21 09/28/21 Range/Units 16:29 07:41 Hgb 8.8 L (14.0-18.0) g/dL Hct 27.3 L (42-52) % POC Glucose 118 H (70-99) mg/dl
--- NOTE | 2021-09-28 19:40 | Hospitalist Progress Note ---
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 Necrotizing colitis - - > continue with Zosyn Admitting CT a/p:Prominent colonic gas without evidence of small bowel obstruction or volvulus. Prominence of the appendix, new from prior exam. Clinical correlation is recommended for acute appendicitis.3. Infrarenal abdominal aortic aneurysm measures 28 mm in diameter, slightly increased from prior exam where it measured 24 mm in diameter. KUB: 09/15: Gaseous distended loops of large and small bowel suggest ileus versus distal obstruction. Continued follow-up recommended KUB 09/17: light increase in gaseous distention of the colon. Mild small bowel dilatation. The findings could reflect an ileus or distal obstruction BC NGTD Cdiff positive --> d/w GI 09/26, continue with Dificid 200 mg twice daily 09/26 and Florastor 250 mg twice daily 09/27---> total of 10 days per report. S/p exploratory laparotomy, subtotal colectomy and end ileostomy On 09/17/2021 (Dr. Chau) He was intubated and successfully extubated 09/18/2021 Appreciate ongoing surgical care ---> Can Be DC'd from their POV. Patient tolerating diet well. Abdominal incision looks clean with no drainage, wound VAC placed 09/25, continue wound care. #. Atrial fibrillation/ CAD Noted to have A. fib with RVR Was seen by computer systems designer and amiodarone has been started. Per cardiology, amiodarone 400 twice a day for 7 days followed by 200 mg daily [from September 29]. Follow-up cardiology 4 weeks after discharge to determine duration of amiodarone therapy. Has been on oral amiodarone and the heart rate is improving Beta-beti dose has been increased to control blood pressure and heart rate PT/OT, will need rehab upon discharge. #. Electrolytes abnormality Likely secondary to decreased p.o. intake and recent surgery Monitor daily and replete as appropriate #. Acute kidney injury superimposed on CKD: Resolved, continue to monitor as needed. #. Chronic obstructive pulmonary disease: #. Chronic respiratory failure Chronic respiratory failure with hypoxemia due to COPD/Asbestosis ( 2-4L of O2 at baseline) continue home inhalers stable-continue oxygen for now #. Hypertension: atenolol on hold and continue verapamil bp stable #. DVT prophylaxis: On Eliquis #. Hypoalbuminemia in setting of acute illness pharmacy and battery technician on board for PPN now on oral diet OSA4L of O2 at HS DVT ppx: Eliquis 5 mg twice daily Dispo:medical telemetry unit DNR/DNI PCP:Louis Nice Disposition: PT/OT while inpatient. Awaiting placement. Patient will need follow-up with PCP/GI/surgery/cardiology as an outpatient. Admission and Anticipated Discharge Date Admission Date: September 14, 2021 Subjective Patient sitting up in bed, on 4 L nasal cannula oxygen, NAD, eating his lunch, no new acute events overnight. No interval development of any new signs or symptoms. Patient denies fever/chills/sore throat/other review of symptoms. Physical Exam Physical Exam: GENERAL: Alert and oriented x3. NAD, on 4L HEENT: No pallor, no icterus. Pupils equal, round and reactive to light. Oral mucosa moist. NECK: No JVD, no neck masses. HEART: S1 and S2 heard. Regular rate and rhythm. No murmur, no gallop. RESPIRATORY SYSTEM: Normal AP diameter. No accessory muscle use. No wheezing, no crackles. ABDOMEN: Soft, bowel sounds present, nontender, no distention. Stoma with nonbloody fecal collection in bag. Midline incision --clean looking with no drainage with wound vac in place. CENTRAL NERVOUS SYSTEM: No facial droop. Speech is clear. Obeys simple commands. Moves extremities. EXTREMITIES: 1+ BLE edema, no erythema seen. Results & Data Results & Data ([facility]) Vital Signs (Past 12 Hours) Vital Signs Temp Pulse Resp BP Pulse Ox 09/28/21 15:36 36.6 C 79 18 156/71 H 94 09/28/21 12:16 36.6 C 82 21 138/70 94 12/04/21 08:22 36.7 C 79 22 145/67 H 96
[2021-09-28] MEDS: ZOLPIDEM TARTRATE 5 MG TAB PO PRN (22:09)
[2021-09-29] MEDS: FIDAXOMICIN 200 MG TAB PO SCH ×2 (06:26→17:44)
[2021-09-29 07:39] LABS: Hematocrit (blood only) 27.6 % (42-52); Hemoglobin 8.8 g/dL (14.0-18.0)
[2021-09-29] MEDS: LANSOPRAZOLE 30 MG SOLTAB PO SCH (10:12)
[2021-09-29] MEDS: METOPROLOL TARTRATE 25 MG TAB PO SCH ×2 (10:12→19:44)
[2021-09-29] MEDS: APIXABAN 5 MG TABLET PO SCH ×2 (10:13→19:44)
[2021-09-29] MEDS: POT PHOSPHATE MONOBASIC W/ SOD TAB PO SCH ×3 (10:14→19:44)
[2021-09-29] MEDS: SACCHAROMYCES BOULARDII 250 MG CAP PO SCH ×2 (10:14→19:45)
[2021-09-29] MEDS: UMECLIDINIUM BROMIDE 62.5MCG/BLISTER 7 PUFFS/INHALER INH SCH (10:14)
[2021-09-29] MEDS: AMIODARONE 200 MG TAB PO SCH ×2 (10:14→17:44)
[2021-09-29 10:32] LABS: Ferritin 241.4 ng/ml (8-388)
--- NOTE | 2021-09-29 12:01 | Surgery Progress Note ---
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 Improving. On regular diet, ostomy functioning. Labs stable. No new recommendations. Admission and Anticipated Discharge Date Admission Date: September 14, 2021 Subjective Patient sitting up in bed, on 4 L nasal cannula oxygen. No new complaints. Abdominal dressing was reinforced laterally for some leakage. Tolerating diet. Wondering if he is able to remove his monitor. Was able to work with PT. Physical Exam Respiratory: normal respiratory effort, lungs clear to auscultation Gastrointestinal (Abdomen): soft, obese, pos bowel tones, ostomy functional with gas/ stool in bag; wound vac in place, reinforced laterally Neurologic: no gross motor defect, alert, responsive Results & Data ([facility]) Vital Signs (Past 12 Hours) Vital Signs Temp Pulse Pulse Resp BP BP Pulse Ox 09/29/21 10:46 36.6 C 79 17 144/77 H 96 09/29/21 08:19 75 09/29/21 07:35 36.7 C 80 17 165/76 H 96 09/29/21 03:49 36.7 C 82 18 142/78 H 94 09/29/21 01:42 72 Laboratory Results 09/29/21 09/29/21 09/29/21 Range/Units 09:38 09:38 06:40 Hgb 8.8 L (14.0-18.0) g/dL Hct 27.6 L (42-52) % Iron 64 (35-175) mcg/dl TIBC 198 L (250-450) mcg/dl Transferrin 128 L (200-360) mg/dl Transferrin % Sat 36 (20-50) % Ferritin 241.4 (8-388) ng/ml Folate 6.80 (>5.38) ng/ml
[2021-09-29] MEDS: FLUTICASONE/VILANTEROL 100/25MCG 14 PUFFS/INHALER INH SCH (13:00)
--- NOTE | 2021-09-29 18:03 | Hospitalist Progress Note ---
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 Necrotizing colitis - - > continue with Zosyn Admitting CT a/p:Prominent colonic gas without evidence of small bowel obstruction or volvulus. Prominence of the appendix, new from prior exam. Clinical correlation is recommended for acute appendicitis.3. Infrarenal abdominal aortic aneurysm measures 28 mm in diameter, slightly increased from prior exam where it measured 24 mm in diameter. KUB: 09/15: Gaseous distended loops of large and small bowel suggest ileus versus distal obstruction. Continued follow-up recommended KUB 09/17: light increase in gaseous distention of the colon. Mild small bowel dilatation. The findings could reflect an ileus or distal obstruction BC NGTD Cdiff positive --> d/w GI 09/26, continue with Dificid 200 mg twice daily 09/26 and Florastor 250 mg twice daily 09/27---> total of 10 days per report. S/p exploratory laparotomy, subtotal colectomy and end ileostomy On 09/17/2021 (Dr. Chau) He was intubated and successfully extubated 09/18/2021 Appreciate ongoing surgical care ---> Can Be DC'd from their POV. Patient tolerating diet well. Abdominal incision looks clean , wound VAC placed 09/25, continue wound care. #. Atrial fibrillation/ CAD Noted to have A. fib with RVR Was seen by director validation and amiodarone has been started. Per cardiology, amiodarone 400 twice a day for 7 days followed by 200 mg daily [from September 29]. Follow-up cardiology 4 weeks after discharge to determine duration of amiodarone therapy. c/w amiodarone 200 mg daily. HR under control Beta-beti dose has been increased to control blood pressure and heart rate PT/OT, will need rehab upon discharge. #. Electrolytes abnormality Likely secondary to decreased p.o. intake and recent surgery Monitor daily and replete as appropriate #. Acute kidney injury superimposed on CKD: Resolved, continue to monitor as needed. #. Chronic obstructive pulmonary disease: #. Chronic respiratory failure Chronic respiratory failure with hypoxemia due to COPD/Asbestosis ( 2-4L of O2 at baseline) continue home inhalers stable-continue oxygen for now #. Hypertension: atenolol on hold and continue verapamil bp stable #. DVT prophylaxis: On Eliquis #. Hypoalbuminemia in setting of acute illness pharmacy and candle molder were on board for PPN now on oral diet OSA4L of O2 at HS DVT ppx: Eliquis 5 mg twice daily Dispo:medical telemetry unit DNR/DNI PCP:Louis Nice Disposition: PT/OT while inpatient. Awaiting placement. Patient will need follow-up with PCP/GI/surgery/cardiology as an outpatient. Admission and Anticipated Discharge Date Admission Date: September 14, 2021 Subjective Patient sitting up in bed eating his lunch, on 4 L nasal cannula oxygen. NAD. No new acute events overnight. Denies fever/chills/headache/chest pain/palpit ation/other review of symptoms. Patient reports eating better lately. Physical Exam Physical Exam: GENERAL: Alert and oriented x3. NAD, on 4L HEENT: No pallor, no icterus. Pupils equal, round and reactive to light. Oral mucosa moist. NECK: No JVD, no neck masses. HEART: S1 and S2 heard. Regular rate and rhythm. No murmur, no gallop. RESPIRATORY SYSTEM: Normal AP diameter. No accessory muscle use. No wheezing, no crackles. ABDOMEN: Soft, bowel sounds present, nontender, no distention. Stoma with nonbloody fecal collection in bag. Midline incision --clean looking with no drainage with wound vac in place. CENTRAL NERVOUS SYSTEM: No facial droop. Speech is clear. Obeys simple commands. Moves extremities. EXTREMITIES: 1+ BLE edema, no erythema seen. Results & Data Results & Data ([facility]) Vital Signs (Past 12 Hours) Vital Signs Temp Pulse Pulse Resp BP Pulse Ox 09/29/21 15:12 73 09/29/21 14:56 36.9 C 75 18 149/81 H 97 09/29/21 10:46 36.6 C 79 17 144/77 H 96 09/29/21 08:19 75 09/29/21 07:35 36.7 C 80 17 165/76 H 96
[2021-09-30] MEDS: ZOLPIDEM TARTRATE 5 MG TAB PO PRN ×2 (00:18→22:45)
[2021-09-30] MEDS: FIDAXOMICIN 200 MG TAB PO SCH ×2 (05:53→17:21)
--- NOTE | 2021-09-30 06:52 | Surgery Progress Note ---
Date of Service September 30, 2021 Assessment & Plan (1) Status post laparotomy: Plan: Subtotal colectomy for necrotizing colitis with associated C. difficile colitis Patient doing very well with his diet VAC system on his incision Retention sutures in place Essentially awaiting placement in need of extended care Discharge medically stable Admission and Anticipated Discharge Date Admission Date: September 14, 2021 Results & Data ([facility]) Vital Signs (Past 12 Hours) Vital Signs Temp Pulse Resp BP Pulse Ox 09/29/21 23:40 36.5 C 84 18 119/59 L 97 PG Care Time/CCT Total # of Minutes Spent Total Time Spent with Patient: Total time spent is greater than 50% in coordination of care (as documented) at patient's floor/unit and/or counseling patient: Coding Level of Care Code None Diagnoses Status post laparotomy Z98.890
[2021-09-30] MEDS: APIXABAN 5 MG TABLET PO SCH ×2 (08:37→21:31)
[2021-09-30] MEDS: POT PHOSPHATE MONOBASIC W/ SOD TAB PO SCH ×3 (08:37→20:36)
[2021-09-30] MEDS: LANSOPRAZOLE 30 MG SOLTAB PO SCH (08:37)
[2021-09-30] MEDS: AMIODARONE 200 MG TAB PO SCH (08:38)
[2021-09-30] MEDS: UMECLIDINIUM BROMIDE 62.5MCG/BLISTER 7 PUFFS/INHALER INH SCH (08:38)
[2021-09-30] MEDS: METOPROLOL TARTRATE 25 MG TAB PO SCH ×2 (08:38→21:31)
[2021-09-30] MEDS: SACCHAROMYCES BOULARDII 250 MG CAP PO SCH ×2 (08:38→20:36)
[2021-09-30] MEDS: FLUTICASONE/VILANTEROL 100/25MCG 14 PUFFS/INHALER INH SCH (10:57)
--- NOTE | 2021-09-30 18:23 | Hospitalist Progress Note ---
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 Necrotizing colitis - - > continue with Zosyn Admitting CT a/p:Prominent colonic gas without evidence of small bowel obstruction or volvulus. Prominence of the appendix, new from prior exam. Clinical correlation is recommended for acute appendicitis.3. Infrarenal abdominal aortic aneurysm measures 28 mm in diameter, slightly increased from prior exam where it measured 24 mm in diameter. KUB: 09/15: Gaseous distended loops of large and small bowel suggest ileus versus distal obstruction. Continued follow-up recommended KUB 09/17: light increase in gaseous distention of the colon. Mild small bowel dilatation. The findings could reflect an ileus or distal obstruction BC NGTD Cdiff positive --> d/w GI 09/26, continue with Dificid 200 mg twice daily 09/26 and Florastor 250 mg twice daily 09/27---> total of 10 days per report. S/p exploratory laparotomy, subtotal colectomy and end ileostomy On 09/17/2021 (Dr. Chau) He was intubated and successfully extubated 09/18/2021 Appreciate ongoing surgical care ---> Can Be DC'd from their POV. Patient tolerating diet well. Abdominal incision looks clean , wound VAC placed 09/25, continue wound care. #. Atrial fibrillation/ CAD Noted to have A. fib with RVR Was seen by detailer and amiodarone has been started. Per cardiology, amiodarone 400 twice a day for 7 days followed by 200 mg daily [from September 29]. Follow-up cardiology 4 weeks after discharge to determine duration of amiodarone therapy. c/w amiodarone 200 mg daily. HR under control Beta-beti dose has been increased to control blood pressure and heart rate PT/OT, will need rehab upon discharge. #. Electrolytes abnormality Likely secondary to decreased p.o. intake and recent surgery Monitor daily and replete as appropriate #. Acute kidney injury superimposed on CKD: Resolved, continue to monitor as needed. #. Chronic obstructive pulmonary disease: #. Chronic respiratory failure Chronic respiratory failure with hypoxemia due to COPD/Asbestosis ( 2-4L of O2 at baseline) continue home inhalers stable-continue oxygen for now #. Hypertension: atenolol on hold and continue verapamil bp stable #. DVT prophylaxis: On Eliquis #. Hypoalbuminemia in setting of acute illness pharmacy and registered route associate were on board for PPN now on oral diet OSA4L of O2 at HS DVT ppx: Eliquis 5 mg twice daily Dispo:medical telemetry unit DNR/DNI PCP:Louis Nice Disposition: PT/OT while inpatient. Stable for discharge. Awaiting placement. Patient will need follow-up with PCP/GI/surgery/cardiology/wound care clinic as an outpatient. Admission and Anticipated Discharge Date Admission Date: September 14, 2021 Subjective Patient sitting up in bed eating his breakfast, on 4 L nasal cannula oxygen. NAD. No new acute events overnight. Denies fever/chills/headache/chest pain/palpitation/other review of symptoms. Patient reports eating better. Physical Exam Physical Exam: GENERAL: Alert and oriented x3. NAD, on 4L HEENT: No pallor, no icterus. Pupils equal, round and reactive to light. Oral mucosa moist. NECK: No JVD, no neck masses. HEART: S1 and S2 heard. Regular rate and rhythm. No murmur, no gallop. RESPIRATORY SYSTEM: Normal AP diameter. No accessory muscle use. No wheezing, no crackles. ABDOMEN: Soft, bowel sounds present, nontender, no distention. Stoma with nonbloody fecal collection in bag. Midline incision --clean looking with no drainage with wound vac in place. CENTRAL NERVOUS SYSTEM: No facial droop. Speech is clear. Obeys simple commands. Moves extremities. EXTREMITIES: 1+ BLE edema, no erythema seen. Results & Data Results & Data ([facility]) Vital Signs (Past 12 Hours) Vital Signs Temp Pulse Resp BP BP Pulse Ox 09/30/21 15:49 36.8 C 88 18 142/70 H 97 09/30/21 07:16 36.4 C L 77 18 154/74 H 98
[2021-10-01] MEDS: FIDAXOMICIN 200 MG TAB PO SCH ×2 (06:13→17:20)
[2021-10-01] MEDS: AMIODARONE 200 MG TAB PO SCH (07:49)
[2021-10-01] MEDS: METOPROLOL TARTRATE 25 MG TAB PO SCH ×2 (07:50→20:48)
[2021-10-01] MEDS: POT PHOSPHATE MONOBASIC W/ SOD TAB PO SCH ×3 (07:50→20:48)
[2021-10-01] MEDS: APIXABAN 5 MG TABLET PO SCH ×2 (07:50→20:48)
[2021-10-01] MEDS: FLUTICASONE/VILANTEROL 100/25MCG 14 PUFFS/INHALER INH SCH (07:50)
[2021-10-01] MEDS: UMECLIDINIUM BROMIDE 62.5MCG/BLISTER 7 PUFFS/INHALER INH SCH (07:51)
[2021-10-01] MEDS: SACCHAROMYCES BOULARDII 250 MG CAP PO SCH ×2 (07:51→20:49)
[2021-10-01 08:17] LABS: Hematocrit (blood only) 28.5 % (42-52); Hemoglobin 9.1 g/dL (14.0-18.0)
--- NOTE | 2021-10-01 08:28 | Surgery Progress Note ---
Date of Service October 01, 2021 Assessment & Plan (1) S/P laparotomy: Plan: s/p exlap, subtotal colectomy, and ileostomy on 09/17/21 pt tolerating a diet. + functioning ostomy yesterday wound vac was removed. An optifoam dressing was placed over inferior portion of wound where there is noted to be some skin redness around the retention suture and some drainage from wound. skin oneal are out pt is awaiting placement at [facility] will need f/u in clinic with dr. lambert upon dispo Admission and Anticipated Discharge Date Admission Date: September 14, 2021 Subjective Patient offers no complaints. Tolerating a diet. + stool in ostomy bag. Pain controlled. Physical Exam Physical Exam: awake/alert, lying in bed Respiratory: on 2 L nasal cannula Gastrointestinal (Abdomen): Inspection/Auscultation: + abdominal surgical incision (midline incision with two inferior portions of skin open. scant drainage.); abdomen not distended some skin redness noted around inferior retention suture. + ostomy with stool in bag Results & Data ([facility]) Vital Signs (Past 12 Hours) Vital Signs Temp Pulse Resp BP BP Pulse Ox 10/01/21 07:44 37 C 74 16 153/75 H 97 09/30/21 23:21 36.6 C 92 H 20 152/75 H 98 09/30/21 21:20 89 138/78 PG Care Time/CCT Total # of Minutes Spent Total Time Spent with Patient: Total time spent is greater than 50% in coordination of care (as documented) at patient's floor/unit and/or counseling patient: Coding Level of Care Code None Diagnoses S/P laparotomy Z98.890
[2021-10-01] MEDS: LANSOPRAZOLE 30 MG SOLTAB PO SCH (12:11)
--- NOTE | 2021-10-01 18:50 | Hospitalist Progress Note ---
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 Necrotizing colitis - - > continue with Zosyn Admitting CT a/p:Prominent colonic gas without evidence of small bowel obstruction or volvulus. Prominence of the appendix, new from prior exam. Clinical correlation is recommended for acute appendicitis.3. Infrarenal abdominal aortic aneurysm measures 28 mm in diameter, slightly increased from prior exam where it measured 24 mm in diameter. KUB: 09/15: Gaseous distended loops of large and small bowel suggest ileus versus distal obstruction. Continued follow-up recommended KUB 09/17: light increase in gaseous distention of the colon. Mild small bowel dilatation. The findings could reflect an ileus or distal obstruction BC NGTD Cdiff positive --> d/w GI 09/26, continue with Dificid 200 mg twice daily 09/26 and Florastor 250 mg twice daily 09/27---> total of 10 days per report. S/p exploratory laparotomy, subtotal colectomy and end ileostomy On 09/17/2021 (Dr. Chau) He was intubated and successfully extubated 09/18/2021 Appreciate ongoing surgical care ---> Can Be DC'd from their POV. Patient tolerating diet well. Abdominal incision looks clean , wound VAC placed 09/25 - 09/30, continue wound care. #. Atrial fibrillation/ CAD Noted to have A. fib with RVR Was seen by traffic supervisor and amiodarone has been started. Per cardiology, amiodarone 400 twice a day for 7 days followed by 200 mg daily [from September 29]. Follow-up cardiology 4 weeks after discharge to determine duration of amiodarone therapy. c/w amiodarone 200 mg daily. HR under control Beta-beti dose has been increased to control blood pressure and heart rate PT/OT, will need rehab upon discharge. #. Electrolytes abnormality Likely secondary to decreased p.o. intake and recent surgery Monitor daily and replete as appropriate #. Acute kidney injury superimposed on CKD: Resolved, continue to monitor as needed. #. Chronic obstructive pulmonary disease: #. Chronic respiratory failure Chronic respiratory failure with hypoxemia due to COPD/Asbestosis ( 2-4L of O2 at baseline) continue home inhalers stable-continue oxygen for now #. Hypertension: atenolol on hold and continue verapamil bp stable #. DVT prophylaxis: On Eliquis #. 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 Stable for discharge. Awaiting placement. Patient will need follow-up with PCP/GI/surgery/cardiology/wound care clinic as an outpatient. Admission and Anticipated Discharge Date Admission Date: September 14, 2021 Subjective Patient sitting up in bed, on 4 L nasal cannula oxygen, NAD, no new events overnight. No interval development since yesterday examination. Patient denies fever/headache/chills/chest pain/other review of symptoms. Physical Exam Physical Exam: GENERAL: Alert and oriented x3. NAD, on 4L HEENT: No pallor, no icterus. Pupils equal, round and reactive to light. Oral mucosa moist. NECK: No JVD, no neck masses. HEART: S1 and S2 heard. Regular rate and rhythm. No murmur, no gallop. RESPIRATORY SYSTEM: Normal AP diameter. No accessory muscle use. No wheezing, no crackles. ABDOMEN: Soft, bowel sounds present, nontender, no distention. Stoma with nonbloody fecal collection in bag. Midline incision --clean looking with no drainage. Wound VAC removed. CENTRAL NERVOUS SYSTEM: No facial droop. Speech is clear. Obeys simple commands. Moves extremities. EXTREMITIES: 1+ BLE edema, no erythema seen. Results & Data Results & Data ([facility]) Vital Signs (Past 12 Hours) Vital Signs Temp Pulse Resp BP BP Pulse Ox 10/01/21 15:25 36.8 C 80 18 124/69 98 10/01/21 07:44 37 C 74 16 153/75 H 97
[2021-10-01] MEDS: ZOLPIDEM TARTRATE 5 MG TAB PO PRN (20:48)
[2021-10-02] MEDS: FIDAXOMICIN 200 MG TAB PO SCH ×2 (05:07→18:15)
[2021-10-02] MEDS: UMECLIDINIUM BROMIDE 62.5MCG/BLISTER 7 PUFFS/INHALER INH SCH (07:51)
[2021-10-02] MEDS: METOPROLOL TARTRATE 25 MG TAB PO SCH ×2 (07:51→20:07)
[2021-10-02] MEDS: APIXABAN 5 MG TABLET PO SCH ×2 (07:51→20:07)
[2021-10-02] MEDS: POT PHOSPHATE MONOBASIC W/ SOD TAB PO SCH ×3 (07:51→20:07)
[2021-10-02] MEDS: SACCHAROMYCES BOULARDII 250 MG CAP PO SCH ×2 (07:52→22:24)
[2021-10-02] MEDS: LANSOPRAZOLE 30 MG SOLTAB PO SCH (07:52)
[2021-10-02] MEDS: AMIODARONE 200 MG TAB PO SCH (07:52)
[2021-10-02] MEDS: FLUTICASONE/VILANTEROL 100/25MCG 14 PUFFS/INHALER INH SCH (07:53)
--- NOTE | 2021-10-02 08:44 | Surgery Progress Note ---
Date of Service October 02, 2021 Assessment & Plan (1) S/P laparotomy: Plan: s/p exlap, subtotal colectomy, and ileostomy on 09/17/21 pt tolerating a diet. + functioning ostomy Optifoam over inferior portion of wound pt is awaiting placement at [facility]. he is stable for discharge from our standpoint Continue PT/OT while here Will need f/u in clinic with dr. lambert upon dispo; retention sutures to be removed in about a week Admission and Anticipated Discharge Date Admission Date: September 14, 2021 Subjective Patient resting in bed. Tolerating diet. Pain controlled. Is weak from hospitalization, but working with PT. Ostomy functioning. Physical Exam Physical Exam: awake/alert, lying in bed Gastrointestinal (Abdomen): Inspection/Auscultation: + abdominal surgical incision (midline incision with two inferior portions of skin open. scant drainage.); abdomen not distended Results & Data ([facility]) Vital Signs (Past 12 Hours) Vital Signs Temp Pulse Resp BP Pulse Ox 10/02/21 07:21 36.7 C 74 20 150/76 H 99 PG Care Time/CCT Total # of Minutes Spent Total Time Spent with Patient: Total time spent is greater than 50% in coordination of care (as documented) at patient's floor/unit and/or counseling patient: Coding Level of Care Code None Diagnoses S/P laparotomy Z98.890
--- NOTE | 2021-10-02 17:49 | Hospitalist Progress Note ---
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 Necrotizing colitis - - > continue with Zosyn Admitting CT a/p:Prominent colonic gas without evidence of small bowel obstruction or volvulus. Prominence of the appendix, new from prior exam. Clinical correlation is recommended for acute appendicitis.3. Infrarenal abdominal aortic aneurysm measures 28 mm in diameter, slightly increased from prior exam where it measured 24 mm in diameter. KUB: 09/15: Gaseous distended loops of large and small bowel suggest ileus versus distal obstruction. Continued follow-up recommended KUB 09/17: light increase in gaseous distention of the colon. Mild small bowel dilatation. The findings could reflect an ileus or distal obstruction BC NGTD Cdiff positive --> d/w GI 09/26, continue with Dificid 200 mg twice daily 09/26 and Florastor 250 mg twice daily 09/27---> total of 10 days per report. S/p exploratory laparotomy, subtotal colectomy and end ileostomy On 09/17/2021 (Dr. Chau) He was intubated and successfully extubated 09/18/2021 Appreciate ongoing surgical care ---> Can Be DC'd from their POV. Patient tolerating diet well. Abdominal incision looks clean , wound VAC placed 09/25 - 09/30, continue wound care. #. Atrial fibrillation/ CAD Noted to have A. fib with RVR Was seen by underwriting director and amiodarone has been started. Per cardiology, amiodarone 400 twice a day for 7 days followed by 200 mg daily [from September 29]. Follow-up cardiology 4 weeks after discharge to determine duration of amiodarone therapy. c/w amiodarone 200 mg daily. HR under control Beta-beti dose has been increased to control blood pressure and heart rate PT/OT, will need rehab upon discharge. #. Electrolytes abnormality Likely secondary to decreased p.o. intake and recent surgery Monitor daily and replete as appropriate #. Acute kidney injury superimposed on CKD: Resolved, continue to monitor as needed. #. Chronic obstructive pulmonary disease: #. Chronic respiratory failure Chronic respiratory failure with hypoxemia due to COPD/Asbestosis ( 2-4L of O2 at baseline) continue home inhalers stable-continue oxygen for now #. Hypertension: atenolol on hold and continue verapamil bp stable #. DVT prophylaxis: On Eliquis #. 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 Stable for discharge. Awaiting placement. Patient will need follow-up with PCP/GI/surgery/cardiology/wound care clinic as an outpatient. Admission and Anticipated Discharge Date Admission Date: September 14, 2021 Subjective Patient lying in bed, on 4 L nasal cannula oxygen, NAD, no new acute events overnight. Patient reports eating and having good output via ostomy. Patient denies fever/headache/chills/increased shortness of breath/other review of symptoms. Physical Exam Physical Exam: GENERAL: Alert and oriented x3. NAD, on 4L HEENT: No pallor, no icterus. Pupils equal, round and reactive to light. Oral mucosa moist. NECK: No JVD, no neck masses. HEART: S1 and S2 heard. Regular rate and rhythm. No murmur, no gallop. RESPIRATORY SYSTEM: Normal AP diameter. No accessory muscle use. No wheezing, no crackles. ABDOMEN: Soft, bowel sounds present, nontender, no distention. Stoma with nonbloody fecal collection in bag. Midline incision --clean looking with no drainage. Wound VAC removed. CENTRAL NERVOUS SYSTEM: No facial droop. Speech is clear. Obeys simple commands. Moves extremities. EXTREMITIES: 1+ BLE edema, no erythema seen. Results & Data Results & Data ([facility]) Vital Signs (Past 12 Hours) Vital Signs Temp Pulse Resp BP BP Pulse Ox 10/02/21 15:20 36.7 C 80 18 146/72 H 97 10/02/21 07:21 36.7 C 74 20 150/76 H 99
[2021-10-02] MEDS: oxyCODONE HCL IR 5 MG TAB (IMMEDIATE RELEASE) PO PRN (20:06)
[2021-10-03] MEDS: FIDAXOMICIN 200 MG TAB PO SCH ×2 (06:26→18:44)
[2021-10-03] MEDS: POT PHOSPHATE MONOBASIC W/ SOD TAB PO SCH ×3 (08:50→21:33)
[2021-10-03] MEDS: LANSOPRAZOLE 30 MG SOLTAB PO SCH (08:50)
[2021-10-03] MEDS: SACCHAROMYCES BOULARDII 250 MG CAP PO SCH ×2 (08:51→21:32)
[2021-10-03] MEDS: AMIODARONE 200 MG TAB PO SCH (08:51)
[2021-10-03] MEDS: APIXABAN 5 MG TABLET PO SCH ×2 (08:51→21:33)
[2021-10-03] MEDS: METOPROLOL TARTRATE 25 MG TAB PO SCH ×2 (08:51→21:33)
[2021-10-03] MEDS: UMECLIDINIUM BROMIDE 62.5MCG/BLISTER 7 PUFFS/INHALER INH SCH (08:52)
[2021-10-03] MEDS: FLUTICASONE/VILANTEROL 100/25MCG 14 PUFFS/INHALER INH SCH (08:52)
--- NOTE | 2021-10-03 15:06 | Hospitalist Progress Note ---
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 Necrotizing colitis - - > continue with Zosyn Admitting CT a/p:Prominent colonic gas without evidence of small bowel obstruction or volvulus. Prominence of the appendix, new from prior exam. Clinical correlation is recommended for acute appendicitis.3. Infrarenal abdominal aortic aneurysm measures 28 mm in diameter, slightly increased from prior exam where it measured 24 mm in diameter. KUB: 09/15: Gaseous distended loops of large and small bowel suggest ileus versus distal obstruction. Continued follow-up recommended KUB 09/17: light increase in gaseous distention of the colon. Mild small bowel dilatation. The findings could reflect an ileus or distal obstruction BC NGTD Cdiff positive --> d/w GI 09/26, continue with Dificid 200 mg twice daily 09/26 and Florastor 250 mg twice daily 09/27---> total of 10 days per report. S/p exploratory laparotomy, subtotal colectomy and end ileostomy On 09/17/2021 (Dr. Chau) He was intubated and successfully extubated 09/18/2021 Appreciate ongoing surgical care ---> Can Be DC'd from their POV. Patient on Regular diet. Abdominal incision looks clean , wound VAC placed 09/25 - 09/30, continue wound care. #. Atrial fibrillation/ CAD Noted to have A. fib with RVR Was seen by national coverage specialist and amiodarone has been started. Per cardiology, amiodarone 400 twice a day for 7 days followed by 200 mg daily [from September 29]. Follow-up cardiology 4 weeks after discharge to determine duration of amiodarone therapy. c/w amiodarone 200 mg daily. HR under control Beta-beti dose has been increased to control blood pressure and heart rate PT/OT, will need rehab upon discharge. #. Electrolytes abnormality Likely secondary to decreased p.o. intake and recent surgery Monitor daily and replete as appropriate #. Acute kidney injury superimposed on CKD: Resolved, continue to monitor as needed. #. Chronic obstructive pulmonary disease: #. Chronic respiratory failure Chronic respiratory failure with hypoxemia due to COPD/Asbestosis ( 2-4L of O2 at baseline) continue home inhalers stable-continue oxygen for now #. Hypertension: atenolol on hold and continue verapamil bp stable #. DVT prophylaxis: On Eliquis #. 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 Stable for discharge. Awaiting placement. Patient will need follow-up with PCP/GI/surgery/cardiology/wound care clinic as an outpatient. Admission and Anticipated Discharge Date Admission Date: September 14, 2021 Subjective Patient lying in bed, on 4 L nasal cannula oxygen, NAD, no new acute events overnight. Patient reports eating and having good output via ostomy. Patient denies fever/headache/chills/increased shortness of breath/other review of symptoms. Physical Exam Physical Exam: GENERAL: Alert and oriented x3. NAD, on 4L HEENT: No pallor, no icterus. Pupils equal, round and reactive to light. Oral mucosa moist. NECK: No JVD, no neck masses. HEART: S1 and S2 heard. Regular rate and rhythm. No murmur, no gallop. RESPIRATORY SYSTEM: Normal AP diameter. No accessory muscle use. No wheezing, no crackles. ABDOMEN: Soft, bowel sounds present, nontender, no distention. Stoma with nonbloody fecal collection in bag. Midline incision --clean looking with no drainage. CENTRAL NERVOUS SYSTEM: No facial droop. Speech is clear. Obeys simple commands. Moves extremities. EXTREMITIES: 1+ BLE edema, no erythema seen. Results & Data Results & Data ([facility]) Vital Signs (Past 12 Hours) Vital Signs Temp Pulse Resp BP BP Pulse Ox 10/03/21 11:51 36.7 C 80 18 128/72 97 10/03/21 08:09 36.7 C 80 18 155/71 H 96 10/03/21 04:00 36.6 C 76 18 160/53 H 99
[2021-10-03] MEDS: oxyCODONE HCL IR 5 MG TAB (IMMEDIATE RELEASE) PO PRN (20:48)
[2021-10-03] MEDS: ZOLPIDEM TARTRATE 5 MG TAB PO PRN (23:29)
[2021-10-03] MEDS ORDERED: HALOPERIDOL LACTATE 5 MG/ML 1 ML VIAL IM PRN (23:56)
[2021-10-04] MEDS: FIDAXOMICIN 200 MG TAB PO SCH ×2 (06:37→18:17)
--- NOTE | 2021-10-04 08:00 | Surgery Progress Note ---
Date of Service October 04, 2021 Assessment & Plan (1) H/O colectomy: Plan: POD 17 subtotal colectomy seen earlier by Dr. Chau lower retention suture removed, remaining can be removed next week will start on Keflex given erythema/scant drainage awaiting placement Admission and Anticipated Discharge Date Admission Date: September 14, 2021 Subjective no complaints Physical Exam Gastrointestinal (Abdomen): Inspection/Auscultation: + abdominal surgical incision (less erythema around retention suture); abdomen not distended Results & Data ([facility]) Vital Signs (Past 12 Hours) Vital Signs Temp Pulse Resp BP Pulse Ox 10/04/21 07:31 36.8 C 76 20 134/72 96 10/03/21 23:03 36.7 C 85 18 127/74 95 PG Care Time/CCT Total # of Minutes Spent Total Time Spent with Patient: Total time spent is greater than 50% in coordination of care (as documented) at patient's floor/unit and/or counseling patient: Coding Level of Care Code None Diagnoses H/O colectomy Z90.49
[2021-10-04] MEDS: POT PHOSPHATE MONOBASIC W/ SOD TAB PO SCH ×3 (08:56→21:16)
[2021-10-04] MEDS: APIXABAN 5 MG TABLET PO SCH ×2 (08:56→21:15)
[2021-10-04] MEDS: SACCHAROMYCES BOULARDII 250 MG CAP PO SCH ×2 (08:56→21:16)
[2021-10-04] MEDS: METOPROLOL TARTRATE 25 MG TAB PO SCH ×2 (08:56→21:15)
[2021-10-04] MEDS: AMIODARONE 200 MG TAB PO SCH (08:56)
[2021-10-04] MEDS: FLUTICASONE/VILANTEROL 100/25MCG 14 PUFFS/INHALER INH SCH (08:58)
[2021-10-04] MEDS: oxyCODONE HCL IR 5 MG TAB (IMMEDIATE RELEASE) PO PRN (09:01)
[2021-10-04] MEDS: cephALEXin 500 MG CAP PO SCH ×4 (11:32→21:15)
[2021-10-04] MEDS: LANSOPRAZOLE 30 MG SOLTAB PO SCH (11:32)
[2021-10-04] MEDS: UMECLIDINIUM BROMIDE 62.5MCG/BLISTER 7 PUFFS/INHALER INH SCH (11:32)
--- NOTE | 2021-10-04 15:00 | Electrocardiogram Report ---
Test Reason : Blood Pressure : / mmHG Vent. Rate : 074 BPM Atrial Rate : 074 BPM P-R Int : 192 ms QRS Dur : 120 ms QT Int : 432 ms P-R-T Axes : 074 014 069 degrees QTc Int : 479 ms Normal sinus rhythm Incomplete left bundle block Borderline ECG When compared with ECG of 18-SEP-2021 09:04, Sinus rhythm has replaced Atrial fibrillation Confirmed by Sonny Tamayo ([id number]) on 10/04/2021 3:00:37 PM Referred By: Fouzia Sharp [place] Confirmed By:Sonny Tamayo
--- NOTE | 2021-10-04 16:59 | Hospitalist Progress Note ---
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 Necrotizing colitis - - > continue with Zosyn Admitting CT a/p:Prominent colonic gas without evidence of small bowel obstruction or volvulus. Prominence of the appendix, new from prior exam. Clinical correlation is recommended for acute appendicitis.3. Infrarenal abdominal aortic aneurysm measures 28 mm in diameter, slightly increased from prior exam where it measured 24 mm in diameter. KUB: 09/15: Gaseous distended loops of large and small bowel suggest ileus versus distal obstruction. Continued follow-up recommended KUB 09/17: light increase in gaseous distention of the colon. Mild small bowel dilatation. The findings could reflect an ileus or distal obstruction BC NGTD Cdiff positive --> d/w GI 09/26, continue with Dificid 200 mg twice daily 09/26 and Florastor 250 mg twice daily 09/27---> total of 10 days per report. S/p exploratory laparotomy, subtotal colectomy and end ileostomy On 09/17/2021 (Dr. Chau) He was intubated and successfully extubated 09/18/2021 Appreciate ongoing surgical care ---> Can Be DC'd from their POV. Patient on Regular diet. Abdominal incision looks clean , wound VAC placed 09/25 - 09/30, continue wound care. Has been feeling much better and awaiting to be placed Denies any abdominal pain, nausea and/or vomiting #. Atrial fibrillation/ CAD Noted to have A. fib with RVR Was seen by nailing machine operator automatic and amiodarone has been started. Per cardiology, amiodarone 400 twice a day for 7 days followed by 200 mg daily [from September 29]. Follow-up cardiology 4 weeks after discharge to determine duration of amiodarone therapy. c/w amiodarone 200 mg daily. HR under control and now back in sinus rhythm Beta-beti dose has been increased to control blood pressure and heart rate #. Electrolytes abnormality Likely secondary to decreased p.o. intake and recent surgery Monitor daily and replete as appropriate Electrolytes have been normalized #. Acute kidney injury superimposed on CKD: Resolved, continue to monitor as needed. #. Chronic obstructive pulmonary disease: #. Chronic respiratory failure Chronic respiratory failure with hypoxemia due to COPD/Asbestosis ( 2-4L of O2 at baseline) continue home inhalers stable-continue oxygen for now Has been requiring 4 L to maintain saturation #. Hypertension: atenolol on hold and continue verapamil bp stable Has been on beta-beti #. DVT prophylaxis: On Eliquis #. 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 now on oral diet OSA4L of O2 at HS DVT ppx: Eliquis 5 mg twice daily Dispo:medical telemetry unit DNR/DNI PCP:Louis Nice Admission and Anticipated Discharge Date Admission Date: September 14, 2021 Subjective 10/04/2021 The patient was seen and examined in medical telemetry unit He is status post exploratory laparotomy with subtotal colectomy on of last month Remains generally weak and lethargic and awaiting to be placed Denies any other significant symptoms Review of Systems Review of Systems: All systems reviewed and are unremarkable except as noted below Physical Exam Physical Exam: Lying in bed with minimal discomfort due to abdominal discomfort Constitutional: well developed and well nourished; no acute distress Eyes: + anicteric sclerae Neck: trachea midline Respiratory: normal respiratory effort (mildly increased work of breathing); no respiratory distress and does not use accessory muscles Auscultation: no diminished lung sounds, no rhonchi and no wheezes Cardiovascular: Rate/Rhythm: not irregularly irregular Vessels: radial pulses present Extremities: normal capillary refill; no edema Gastrointestinal (Abdomen): Inspection/Auscultation: abdomen not distended (marked but soft) and no hypoactive bowel sounds Percussion/Palpation: + abdomen tender (minimal diffuse in LQ bilaterally); no guarding and not tympanic to percussion Musculoskeletal: Head/Neck/Chest: normocephalic, head atraumatic and neck supple Skin: no jaundice Neurologic: moves all extremities; no focal motor deficits and not confused Psychiatric: A+Ox3, euthymic affect Lymphatic: no cervical or axillary lymphadenopathy Results & Data Results & Data ([facility]) Vital Signs (Past 12 Hours) Vital Signs Temp Pulse Resp BP Pulse Ox 10/04/21 14:56 36.6 C 75 20 121/66 97 10/04/21 07:31 36.8 C 76 20 134/72 96 Medications Administered Current Inpatient Medications Albuterol (Albuterol Hfa 8 Gm Inhaler) 2 puffs INH Q6R PRN PRN Reason: Wheezing Stop: 10/14/21 19:10 Amiodarone HCl (Amiodarone 200 Mg Tab) 200 mg PO QAM [facility] Stop: 10/30/21 08:59 Last Admin: 10/04/21 08:56 Dose: 200 mg Documented by: Apixaban (Apixaban 5 Mg Tablet) 5 mg PO BID [facility] Stop: 10/21/21 20:59 Last Admin: 10/04/21 08:56 Dose: 5 mg Documented by: Cephalexin HCl (Cephalexin 500 Mg Cap) 500 mg PO QID [facility] Stop: 10/11/21 08:59 Last Admin: 10/04/21 14:32 Dose: 500 mg Documented by: Dextrose (Dextrose 50% 50 Ml Syringe) 25 - 50 ml IV UD PRN; Protocol PRN Reason: Hypoglycemia Protocol Stop: 10/18/21 05:57 Fidaxomicin (Fidaxomicin 200 Mg Tab) 200 mg PO BID@0600,1800 [facility] Stop: 10/06/21 06:01 Last Admin: 10/04/21 06:37 Dose: 200 mg Documented by: Fluticasone/Vilanterol (Fluticasone/Vilanterol 100/25mcg 14 Puffs/Inhaler) 1 puffs INH DAILY [facility]; Protocol Stop: 10/15/21 08:59 Last Admin: 10/04/21 08:58 Dose: 1 puffs Documented by: Glucagon (Glucagon For Inj 1 Mg Vial) 1 mg SQ UD PRN; Protocol PRN Reason: Hypoglycemia Protocol Stop: 10/18/21 05:57 Glucose (Glucose 10 Tabs/Tube) 4 - 8 tabs PO UD PRN; Protocol PRN Reason: Hypoglycemia Protocol Stop: 10/18/21 05:57 Glucose (Glucose 40% Gel 15 Gm Tube) 15 - 30 gm PO UD PRN; Protocol PRN Reason: Hypoglycemia Protocol Stop: 10/18/21 05:57 Hydromorphone HCl (Hydromorphone Inj 0.5 Mg/0.5 Ml Syr) 0.5 mg IV Q6H PRN PRN Reason: Pain Stop: 10/06/21 16:59 Last Admin: 09/23/21 13:14 Dose: 0.5 mg Documented by: Lansoprazole (Lansoprazole 30 Mg Soltab) 30 mg PO QAM [facility] Stop: 10/17/21 14:44 Last Admin: 10/04/21 11:32 Dose: 30 mg Documented by: Metoprolol Tartrate (Metoprolol Tartrate 25 Mg Tab) 25 mg PO BID [facility] Stop: 10/22/21 20:59 Last Admin: 10/04/21 08:56 Dose: 25 mg Documented by: Miscellaneous (Carbohydrates For Hypoglycemia ) 15 - 30 gm PO UD PRN PRN Reason: Hypoglycemia Protocol Stop: 10/18/21 05:57 Oxycodone HCl (Oxycodone Hcl Ir 5 Mg Tab (Immediate Release)) 5 mg PO Q4H PRN PRN Reason: Pain Stop: 10/08/21 08:26 Last Admin: 10/04/21 09:01 Dose: 5 mg Documented by: Potassium Phosphate (Pot Phosphate Monobasic W/ Sod Tab) 1 tab PO TID [facility] Stop: 10/25/21 13:59 Last Admin: 10/04/21 14:32 Dose: 1 tab Documented by: Saccharomyces Boulardii (Saccharomyces Boulardii 250 Mg Cap) 250 mg PO BID [facility] Stop: 10/07/21 09:01 Last Admin: 10/04/21 08:56 Dose: 250 mg Documented by: Umeclidinium [place] (Umeclidinium [place] 62.5mcg/Blister 7 Puffs/Inhaler) 1 puffs INH DAILY [facility]; Protocol Stop: 10/15/21 08:59 Last Admin: 10/04/21 11:32 Dose: 1 puffs Documented by: Zolpidem Tartrate (Zolpidem Tartrate 5 Mg Tab) 5 mg PO HS PRN PRN Reason: Sleep Stop: 10/19/21 21:42 Last Admin: 10/03/21 23:29 Dose: 5 mg Documented by:
[2021-10-04] MEDS: ZOLPIDEM TARTRATE 5 MG TAB PO PRN (22:42)
--- NOTE | 2021-10-05 05:38 | Surgery Progress Note ---
Date of Service October 05, 2021 Assessment & Plan (1) Toxic megacolon due to Clostridioides difficile: Plan: Patient is status post subtotal colectomy by Dr. hCau on 09/17/2021 (postop day #18) Continue diet as tolerated Maintain patient on Keflex which was started yesterday for erythema near surgical incision. Would recommend completing 7 to 10 days of this We will keep retention suture in place for the present time Patient is currently awaiting placement Admission and Anticipated Discharge Date Admission Date: September 14, 2021 Supervising Physician Co-Signing Physician Notes As per Raman Hoffman physician budget assistant Patient resting comfortably no abdominal issues tolerating a regular diet his abdomen is benign on retention sutures still present lower aspect of incision no drainage colostomy with good output Patient states he will going to rehab Subjective Patient is resting comfortably in bed. He denies any nausea or vomiting. He is tolerating solid food. He notes his ostomy is working. He denies any difficulty urinating. He denies any shortness of breath. Physical Exam Gastrointestinal (Abdomen): Abdomen is soft. Bowel sounds are present. Patient's ostomy is pink and viable with brown stool noted in the collection bag. Patient's incision is intact with one retention suture noted. The lower portion of his incision has some slight erythema but is otherwise intact without any purulent drainage. Results & Data ([facility]) Vital Signs (Past 12 Hours) Vital Signs Temp Pulse Resp BP Pulse Ox 10/04/21 22:46 37.1 C 80 20 130/68 97 10/04/21 21:12 81 125/74 PG Care Time/CCT Total # of Minutes Spent Total Time Spent with Patient: Total time spent is greater than 50% in coordination of care (as documented) at patient's floor/unit and/or counseling patient: Coding Level of Care Code None Diagnoses Toxic megacolon due to Clostridioides difficile A04.72
[2021-10-05] MEDS: FIDAXOMICIN 200 MG TAB PO SCH ×2 (05:52→17:27)
[2021-10-05 06:21] LABS: Eosinophils # (auto) 0.06 K/uL (0-0.5); Eosinophils % (auto) 1.2 %; Hematocrit (blood only) 29.2 % (42-52); Hemoglobin 9.1 g/dL (14.0-18.0); Immature Granulocytes # (auto) 0.05 K/uL (0.00-0.02); Lymphocytes # (auto) 0.91 K/uL (1.2-3.4); Lymphocytes % (auto) 18.8 %; Mean Corpuscular Hemoglobin 31.7 pg (25-34); Mean Corpuscular Hgb Conc 31.2 g/dL (32-36); Mean Corpuscular Volume 101.7 fL (80-100); Mean Platelet Volume 11.4 fL (7.4-10.4); Monocytes # (auto) 1.13 K/uL (0.11-0.59); Monocytes % (auto) 23.4 %; Neutrophils # (auto) 2.68 K/uL (1.4-6.5); Neutrophils % (auto) 55.6 %; Platelet Count 146 K/uL (130-400); RDW Coefficient of Variation 17.7 % (11.5-14.5); RDW Standard Deviation 64.9 fL (36.4-46.3); Red Blood Count 2.87 M/uL (4.7-6.1); White Blood Count 4.83 K/uL (4.8-10.8)
[2021-10-05 06:52] LABS: BUN Creatinine Ratio 9.8 (10-20); Calcium 8.4 mg/dl (8.5-10.1); Creatinine Clr Calc Pharmacy 50.7 ml/min; Est GFR (Non-African American) 56.9 ml/min; Magnesium 1.9 mg/dl (1.8-2.4); Phosphorus 3.3 mg/dl (2.5-4.9)
[2021-10-05] MEDS: AMIODARONE 200 MG TAB PO SCH (07:51)
[2021-10-05] MEDS: POT PHOSPHATE MONOBASIC W/ SOD TAB PO SCH ×3 (07:51→20:28)
[2021-10-05] MEDS: APIXABAN 5 MG TABLET PO SCH ×2 (07:51→20:28)
[2021-10-05] MEDS: FLUTICASONE/VILANTEROL 100/25MCG 14 PUFFS/INHALER INH SCH (07:52)
[2021-10-05] MEDS: cephALEXin 500 MG CAP PO SCH ×2 (07:52→20:28)
[2021-10-05] MEDS: LANSOPRAZOLE 30 MG SOLTAB PO SCH (07:53)
[2021-10-05] MEDS: METOPROLOL TARTRATE 25 MG TAB PO SCH ×2 (07:53→20:31)
[2021-10-05] MEDS: UMECLIDINIUM BROMIDE 62.5MCG/BLISTER 7 PUFFS/INHALER INH SCH (07:54)
[2021-10-05] MEDS: SACCHAROMYCES BOULARDII 250 MG CAP PO SCH ×2 (07:54→20:29)
[2021-10-05] MEDS: oxyCODONE HCL IR 5 MG TAB (IMMEDIATE RELEASE) PO PRN ×2 (11:29→17:27)
--- NOTE | 2021-10-05 15:07 | Hospitalist Progress Note ---
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 Necrotizing colitis - - > continue with Zosyn Admitting CT a/p:Prominent colonic gas without evidence of small bowel obstruction or volvulus. Prominence of the appendix, new from prior exam. Clinical correlation is recommended for acute appendicitis.3. Infrarenal abdominal aortic aneurysm measures 28 mm in diameter, slightly increased from prior exam where it measured 24 mm in diameter. KUB: 09/15: Gaseous distended loops of large and small bowel suggest ileus versus distal obstruction. Continued follow-up recommended KUB 09/17: light increase in gaseous distention of the colon. Mild small bowel dilatation. The findings could reflect an ileus or distal obstruction BC NGTD Cdiff positive --> d/w GI 09/26, continue with Dificid 200 mg twice daily 09/26 and Florastor 250 mg twice daily 09/27---> total of 10 days per report. The dose of deficit will be finished by Thursday and the patient can be transferred to the facility he will be accepted to S/p exploratory laparotomy, subtotal colectomy and end ileostomy On 09/17/2021 (Dr. Chau) He was intubated and successfully extubated 09/18/2021 Appreciate ongoing surgical care ---> Can Be DC'd from their POV. Patient on Regular diet. Abdominal incision looks clean , wound VAC placed 09/25 - 09/30, continue wound care. Has been feeling much better and awaiting to be placed Denies any abdominal pain, nausea and/or vomiting Abdominal wound and colostomy site are stable and without any evidence of infection #. Atrial fibrillation/ CAD Noted to have A. fib with RVR Was seen by retail store manager and amiodarone has been started. Per cardiology, amiodarone 400 twice a day for 7 days followed by 200 mg daily [from September 29]. Follow-up cardiology 4 weeks after discharge to determine duration of amiodarone therapy. c/w amiodarone 200 mg daily. HR under control and now back in sinus rhythm Beta-beti dose has been increased to control blood pressure and heart rate #. Electrolytes abnormality Likely secondary to decreased p.o. intake and recent surgery Monitor daily and replete as appropriate Electrolytes have been normalized #. Acute kidney injury superimposed on CKD: Resolved, continue to monitor as needed. #. Chronic obstructive pulmonary disease: #. Chronic respiratory failure Chronic respiratory failure with hypoxemia due to COPD/Asbestosis ( 2-4L of O2 at baseline) continue home inhalers stable-continue oxygen for now Has been requiring 4 L to maintain saturation #. Hypertension: atenolol on hold and continue verapamil bp stable Has been on beta-beti #. DVT prophylaxis: On Eliquis #. 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 now on oral diet OSA4L of O2 at HS DVT ppx: Eliquis 5 mg twice daily Dispo:medical telemetry unit Awaiting placement DNR/DNI PCP:Louis Nice Admission and Anticipated Discharge Date Admission Date: September 14, 2021 Subjective 10/04/2021 The patient was seen and examined in medical telemetry unit He is status post exploratory laparotomy with subtotal colectomy on of last month Remains generally weak and lethargic and awaiting to be placed Denies any other significant symptoms 10/05/2021 The patient was seen and examined in medical telemetry unit He has been feeling much better today and denies any significant symptoms He has been waiting to be placed Review of Systems Review of Systems: All systems reviewed and are unremarkable except as noted below Constitutional: Generalized weakness Physical Exam Physical Exam: Lying in bed with minimal discomfort due to abdominal discomfort Constitutional: well developed and well nourished; no acute distress Eyes: + anicteric sclerae Neck: trachea midline Respiratory: normal respiratory effort (mildly increased work of breathing); no respiratory distress and does not use accessory muscles Auscultation: no diminished lung sounds, no rhonchi and no wheezes Cardiovascular: Rate/Rhythm: not irregularly irregular Vessels: radial pulses present Extremities: normal capillary refill; no edema Gastrointestinal (Abdomen): Inspection/Auscultation: abdomen not distended (marked but soft) and no hypoactive bowel sounds Percussion/Palpation: + abdomen tender (minimal diffuse in LQ bilaterally); no guarding and not tympanic to percussion Musculoskeletal: Head/Neck/Chest: normocephalic, head atraumatic and neck sup ple Skin: no jaundice Neurologic: moves all extremities; no focal motor deficits and not confused Psychiatric: A+Ox3, euthymic affect Lymphatic: no cervical or axillary lymphadenopathy Results & Data Results & Data ([facility]) Vital Signs (Past 12 Hours) Vital Signs Temp Pulse Resp BP Pulse Ox 10/05/21 07:27 36.7 C 82 18 168/89 H 99 Laboratory Results Short CBC 10/05/21 Range/Units 05:33 WBC 4.83 (4.8-10.8) K/uL Hgb 9.1 L (14.0-18.0) g/dL Hct 29.2 L (42-52) % Plt Count 146 (130-400) K/uL BMP 10/05/21 05:33 Sodium 142 Potassium 4.0 Chloride 106 Carbon Dioxide 31 BUN 12 Creatinine 1.19 Glucose 117 H Calcium 8.4 L Medications Administered Current Inpatient Medications Albuterol (Albuterol Hfa 8 Gm Inhaler) 2 puffs INH Q6R PRN PRN Reason: Wheezing Stop: 10/14/21 19:10 Amiodarone HCl (Amiodarone 200 Mg Tab) 200 mg PO QAM [facility] Stop: 10/30/21 08:59 Last Admin: 10/05/21 07:51 Dose: 200 mg Documented by: Apixaban (Apixaban 5 Mg Tablet) 5 mg PO BID [facility] Stop: 10/21/21 20:59 Last Admin: 10/05/21 07:51 Dose: 5 mg Documented by: Cephalexin HCl (Cephalexin 500 Mg Cap) 500 mg PO BID [facility]; Protocol Stop: 10/11/21 20:59 Dextrose (Dextrose 50% 50 Ml Syringe) 25 - 50 ml IV UD PRN; Protocol PRN Reason: Hypoglycemia Protocol Stop: 10/18/21 05:57 Fidaxomicin (Fidaxomicin 200 Mg Tab) 200 mg PO BID@0600,1800 [facility] Stop: 10/06/21 06:01 Last Admin: 10/05/21 05:52 Dose: 200 mg Documented by: Fluticasone/Vilanterol (Fluticasone/Vilanterol 100/25mcg 14 Puffs/Inhaler) 1 puffs INH DAILY [facility]; Protocol Stop: 10/15/21 08:59 Last Admin: 10/05/21 07:52 Dose: 1 puffs Documented by: Glucagon (Glucagon For Inj 1 Mg Vial) 1 mg SQ UD PRN; Protocol PRN Reason: Hypoglycemia Protocol Stop: 10/18/21 05:57 Glucose (Glucose 10 Tabs/Tube) 4 - 8 tabs PO UD PRN; Protocol PRN Reason: Hypoglycemia Protocol Stop: 10/18/21 05:57 Glucose (Glucose 40% Gel 15 Gm Tube) 15 - 30 gm PO UD PRN; Protocol PRN Reason: Hypoglycemia Protocol Stop: 10/18/21 05:57 Hydromorphone HCl (Hydromorphone Inj 0.5 Mg/0.5 Ml Syr) 0.5 mg IV Q6H PRN PRN Reason: Pain Stop: 10/06/21 16:59 Last Admin: 09/23/21 13:14 Dose: 0.5 mg Documented by: Lansoprazole (Lansoprazole 30 Mg Soltab) 30 mg PO QAM [facility] Stop: 10/17/21 14:44 Last Admin: 10/05/21 07:53 Dose: 30 mg Documented by: Metoprolol Tartrate (Metoprolol Tartrate 25 Mg Tab) 25 mg PO BID [facility] Stop: 10/22/21 20:59 Last Admin: 10/05/21 07:53 Dose: 25 mg Documented by: Miscellaneous (Carbohydrates For Hypoglycemia ) 15 - 30 gm PO UD PRN PRN Reason: Hypoglycemia Protocol Stop: 10/18/21 05:57 Oxycodone HCl (Oxycodone Hcl Ir 5 Mg Tab (Immediate Release)) 5 mg PO Q4H PRN PRN Reason: Pain Stop: 10/08/21 08:26 Last Admin: 10/05/21 11:29 Dose: 5 mg Documented by: Potassium Phosphate (Pot Phosphate Monobasic W/ Sod Tab) 1 tab PO TID [facility] Stop: 10/25/21 13:59 Last Admin: 10/05/21 14:07 Dose: 1 tab Documented by: Saccharomyces Boulardii (Saccharomyces Boulardii 250 Mg Cap) 250 mg PO BID [facility] Stop: 10/07/21 09:01 Last Admin: 10/05/21 07:54 Dose: 250 mg Documented by: Umeclidinium [place] (Umeclidinium [place] 62.5mcg/Blister 7 Puffs/Inhaler) 1 puffs INH DAILY [facility]; Protocol Stop: 10/15/21 08:59 Last Admin: 10/05/21 07:54 Dose: 1 puffs Documented by: Zolpidem Tartrate (Zolpidem Tartrate 5 Mg Tab) 5 mg PO HS PRN PRN Reason: Sleep Stop: 10/19/21 21:42 Last Admin: 10/04/21 22:42 Dose: 5 mg Documented by:
[2021-10-06] MEDS: oxyCODONE HCL IR 5 MG TAB (IMMEDIATE RELEASE) PO PRN ×2 (02:23→08:07)
[2021-10-06] MEDS: FIDAXOMICIN 200 MG TAB PO SCH (05:47)
[2021-10-06] MEDS: cephALEXin 500 MG CAP PO SCH ×2 (08:08→20:09)
[2021-10-06] MEDS: APIXABAN 5 MG TABLET PO SCH ×2 (08:08→20:09)
[2021-10-06] MEDS: AMIODARONE 200 MG TAB PO SCH (08:08)
[2021-10-06] MEDS: POT PHOSPHATE MONOBASIC W/ SOD TAB PO SCH ×3 (08:08→20:09)
[2021-10-06] MEDS: FLUTICASONE/VILANTEROL 100/25MCG 14 PUFFS/INHALER INH SCH (08:09)
[2021-10-06] MEDS: LANSOPRAZOLE 30 MG SOLTAB PO SCH (08:09)
[2021-10-06] MEDS: SACCHAROMYCES BOULARDII 250 MG CAP PO SCH ×2 (08:10→20:10)
[2021-10-06] MEDS: UMECLIDINIUM BROMIDE 62.5MCG/BLISTER 7 PUFFS/INHALER INH SCH (08:10)
[2021-10-06] MEDS: METOPROLOL TARTRATE 25 MG TAB PO SCH ×2 (08:10→20:09)
--- NOTE | 2021-10-06 13:45 | Hospitalist Progress Note ---
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 Necrotizing colitis - - > continue with Zosyn Admitting CT a/p:Prominent colonic gas without evidence of small bowel obstruction or volvulus. Prominence of the appendix, new from prior exam. Clinical correlation is recommended for acute appendicitis.3. Infrarenal abdominal aortic aneurysm measures 28 mm in diameter, slightly increased from prior exam where it measured 24 mm in diameter. KUB: 09/15: Gaseous distended loops of large and small bowel suggest ileus versus distal obstruction. Continued follow-up recommended KUB 09/17: light increase in gaseous distention of the colon. Mild small bowel dilatation. The findings could reflect an ileus or distal obstruction BC NGTD Cdiff positive --> d/w GI 09/26, continue with Dificid 200 mg twice daily 09/26 and Florastor 250 mg twice daily 09/27---> total of 10 days per report. The dose of deficit will be finished by Thursday and the patient can be transferred to the facility he will be accepted to Denies any more diarrhea and will finish the treatment for C. difficile colitis tomorrow S/p exploratory laparotomy, subtotal colectomy and end ileostomy On 09/17/2021 (Dr. Chau) He was intubated and successfully extubated 09/18/2021 Appreciate ongoing surgical care ---> Can Be DC'd from their POV. Patient on Regular diet. Abdominal incision looks clean , wound VAC placed 09/25 - 09/30, continue wound care. Has been feeling much better and awaiting to be placed Denies any abdominal pain, nausea and/or vomiting Abdominal wound and colostomy site are stable and without any evidence of infection Denies any significant pain in abdomen or in surgical wound #. Atrial fibrillation/ CAD Noted to have A. fib with RVR Was seen by date night sitter and amiodarone has been started. Per cardiology, amiodarone 400 twice a day for 7 days followed by 200 mg daily [from September 29]. Follow-up cardiology 4 weeks after discharge to determine duration of amiodarone therapy. c/w amiodarone 200 mg daily. HR under control and now back in sinus rhythm Beta-beti dose has been increased to control blood pressure and heart rate #. Electrolytes abnormality Likely secondary to decreased p.o. intake and recent surgery Monitor daily and replete as appropriate Electrolytes have been normalized #. Acute kidney injury superimposed on CKD: Resolved, continue to monitor as needed. #. Chronic obstructive pulmonary disease: #. Chronic respiratory failure Chronic respiratory failure with hypoxemia due to COPD/Asbestosis ( 2-4L of O2 at baseline) continue home inhalers stable-continue oxygen for now Has been requiring 4 L to maintain saturation #. Hypertension: atenolol on hold and continue verapamil bp stable Has been on beta-beti #. DVT prophylaxis: On Eliquis #. 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 PPN now on oral diet OSA4L of O2 at HS DVT ppx: Eliquis 5 mg twice daily Dispo:medical telemetry unit Awaiting placement Likely discharge tomorrow DNR/DNI PCP:Louis Nice Admission and Anticipated Discharge Date Admission Date: September 14, 2021 Subjective 10/04/2021 The patient was seen and examined in medical telemetry unit He is status post exploratory laparotomy with subtotal colectomy on of last month Remains generally weak and lethargic and awaiting to be placed Denies any other significant symptoms 10/05/2021 The patient was seen and examined in medical telemetry unit He has been feeling much better today and denies any significant symptoms He has been waiting to be placed 10/06/21 The patient was seen and examined in medical floor He remained stable and doesn't have any complaints He has been waiting to be placed Review of Systems Review of Systems: All systems reviewed and are unremarkable except as noted below Constitutional: Generalized weakness Physical Exam Physical Exam: Lying in bed with minimal discomfort due to abdominal discomfort Constitutional: well developed and well nourished; no acute distress Eyes: + anicteric sclerae Neck: trachea midline Respiratory: normal respiratory effort (mildly increased work of breathing); no respiratory distress and does not use accessory muscles Auscultation: no diminished lung sounds, no rhonchi and no wheezes Cardiovascular: Rate/Rhythm: not irregularly irregular Vessels: radial pulses present Extremities: normal capillary refill; no edema Gastrointestinal (Abdomen): Inspection/Auscultation: abdomen not distended (marked but soft) and no hypoactive bowel sounds Percussion/Palpation: + abdomen tender (minimal diffuse in LQ bilaterally); no guarding and not tympanic to percussion Musculoskeletal: Head/Neck/Chest: normocephalic, head atraumatic and neck supple Skin: no jaundice Neurologic: moves all extremities; no focal motor deficits and not confused Psychiatric: A+Ox3, euthymic affect Lymphatic: no cervical or axillary lymphadenopathy Results & Data Results & Data ([facility]) Vital Signs (Past 12 Hours) Vital Signs Temp Pulse Resp BP Pulse Ox 10/06/21 08:05 36.5 C 74 16 147/67 H 95 Medications Administered Current Inpatient Medications Albuterol (Albuterol Hfa 8 Gm Inhaler) 2 puffs INH Q6R PRN PRN Reason: Wheezing Stop: 10/14/21 19:10 Amiodarone HCl (Amiodarone 200 Mg Tab) 200 mg PO QAM [facility] Stop: 10/30/21 08:59 Last Admin: 10/06/21 08:08 Dose: 200 mg Documented by: Apixaban (Apixaban 5 Mg Tablet) 5 mg PO BID [facility] Stop: 10/21/21 20:59 Last Admin: 10/06/21 08:08 Dose: 5 mg Documented by: Cephalexin HCl (Cephalexin 500 Mg Cap) 500 mg PO BID [facility]; Protocol Stop: 10/11/21 20:59 Last Admin: 10/06/21 08:08 Dose: 500 mg Documented by: Dextrose (Dextrose 50% 50 Ml Syringe) 25 - 50 ml IV UD PRN; Protocol PRN Reason: Hypoglycemia Protocol Stop: 10/18/21 05:57 Fluticasone/Vilanterol (Fluticasone/Vilanterol 100/25mcg 14 Puffs/Inhaler) 1 puffs INH DAILY [facility]; Protocol Stop: 10/15/21 08:59 Last Admin: 10/06/21 08:09 Dose: 1 puffs Documented by: Glucagon (Glucagon For Inj 1 Mg Vial) 1 mg SQ UD PRN; Protocol PRN Reason: Hypoglycemia Protocol Stop: 10/18/21 05:57 Glucose (Glucose 10 Tabs/Tube) 4 - 8 tabs PO UD PRN; Protocol PRN Reason: Hypoglycemia Protocol Stop: 10/18/21 05:57 Glucose (Glucose 40% Gel 15 Gm Tube) 15 - 30 gm PO UD PRN; Protocol PRN Reason: Hypoglycemia Protocol Stop: 10/18/21 05:57 Hydromorphone HCl (Hydromorphone Inj 0.5 Mg/0.5 Ml Syr) 0.5 mg IV Q6H PRN PRN Reason: Pain Stop: 10/06/21 16:59 Last Admin: 09/23/21 13:14 Dose: 0.5 mg Documented by: Lansoprazole (Lansoprazole 30 Mg Soltab) 30 mg PO QAM [facility] Stop: 10/17/21 14:44 Last Admin: 10/06/21 08:09 Dose: 30 mg Documented by: Metoprolol Tartrate (Metoprolol Tartrate 25 Mg Tab) 25 mg PO BID [facility] Stop: 10/22/21 20:59 Last Admin: 10/06/21 08:10 Dose: 25 mg Documented by: Miscellaneous (Carbohydrates For Hypoglycemia ) 15 - 30 gm PO UD PRN PRN Reason: Hypoglycemia Protocol Stop: 10/18/21 05:57 Oxycodone HCl (Oxycodone Hcl Ir 5 Mg Tab (Immediate Release)) 5 mg PO Q4H PRN PRN Reason: Pain Stop: 10/08/21 08:26 Last Admin: 10/06/21 08:07 Dose: 5 mg Documented by: Potassium Phosphate (Pot Phosphate Monobasic W/ Sod Tab) 1 tab PO TID [facility] Stop: 10/25/21 13:59 Last Admin: 10/06/21 08:08 Dose: 1 tab Documented by: Saccharomyces Boulardii (Saccharomyces Boulardii 250 Mg Cap) 250 mg PO BID [facility] Stop: 10/07/21 09:01 Last Admin: 10/06/21 08:10 Dose: 250 mg Documented by: Umeclidinium [place] (Umeclidinium [place] 62.5mcg/Blister 7 Puffs/Inhaler) 1 puffs INH DAILY [facility]; Protocol Stop: 10/15/21 08:59 Last Admin: 10/06/21 08:10 Dose: 1 puffs Documented by: Zolpidem Tartrate (Zolpidem Tartrate 5 Mg Tab) 5 mg PO HS PRN PRN Reason: Sleep Stop: 10/19/21 21:42 Last Admin: 10/04/21 22:42 Dose: 5 mg Documented by:
[2021-10-07 08:30] LABS: Eosinophils # (auto) 0.08 K/uL (0-0.5); Eosinophils % (auto) 1.7 %; Hemoglobin 9.3 g/dL (14.0-18.0); Immature Granulocytes # (auto) 0.05 K/uL (0.00-0.02); Immature Granulocytes % (auto) 1.1 %; Lymphocytes # (auto) 0.83 K/uL (1.2-3.4); Lymphocytes % (auto) 17.4 %; Mean Corpuscular Hemoglobin 32.5 pg (25-34); Mean Corpuscular Hgb Conc 32.1 g/dL (32-36); Mean Corpuscular Volume 101.4 fL (80-100); Mean Platelet Volume 11.4 fL (7.4-10.4); Monocytes # (auto) 0.88 K/uL (0.11-0.59); Monocytes % (auto) 18.5 %; Neutrophils # (auto) 2.92 K/uL (1.4-6.5); Neutrophils % (auto) 61.3 %; Platelet Count 139 K/uL (130-400); RDW Coefficient of Variation 17.9 % (11.5-14.5); RDW Standard Deviation 65.8 fL (36.4-46.3); Red Blood Count 2.86 M/uL (4.7-6.1); White Blood Count 4.76 K/uL (4.8-10.8)
[2021-10-07 08:47] LABS: BUN Creatinine Ratio 10.3 (10-20); Calcium 8.6 mg/dl (8.5-10.1); Creatinine Clr Calc Pharmacy 54.7 ml/min; Est GFR (African American) 71.8 ml/min; Est GFR (Non-African American) 61.9 ml/min; Magnesium 1.9 mg/dl (1.8-2.4)
[2021-10-07 08:48] LABS: Phosphorus 3.2 mg/dl (2.5-4.9)
[2021-10-07 09:02] LABS: Potassium 4.3 mmol/L (3.5-5.1)
[2021-10-07] MEDS: APIXABAN 5 MG TABLET PO SCH ×2 (09:51→20:36)
[2021-10-07] MEDS: cephALEXin 500 MG CAP PO SCH ×2 (09:51→20:36)
[2021-10-07] MEDS: METOPROLOL TARTRATE 25 MG TAB PO SCH ×2 (09:51→20:36)
[2021-10-07] MEDS: FLUTICASONE/VILANTEROL 100/25MCG 14 PUFFS/INHALER INH SCH (09:52)
[2021-10-07] MEDS: POT PHOSPHATE MONOBASIC W/ SOD TAB PO SCH ×3 (09:52→20:36)
[2021-10-07] MEDS: SACCHAROMYCES BOULARDII 250 MG CAP PO SCH (09:53)
[2021-10-07] MEDS: AMIODARONE 200 MG TAB PO SCH (09:53)
[2021-10-07] MEDS: LANSOPRAZOLE 30 MG SOLTAB PO SCH (09:53)
[2021-10-07] MEDS: UMECLIDINIUM BROMIDE 62.5MCG/BLISTER 7 PUFFS/INHALER INH SCH (09:54)
[2021-10-07] MEDS: oxyCODONE HCL IR 5 MG TAB (IMMEDIATE RELEASE) PO PRN (20:40)
--- NOTE | 2021-10-08 06:47 | Surgery Progress Note ---
Date of Service October 08, 2021 Assessment & Plan (1) Status post laparotomy: Plan: Status post subtotal colectomy for necrotizing colitis Patient is awaiting placement with no acute changes Possible discharge today to [facility] facility Follow-up in 3 to 4 weeks Admission and Anticipated Discharge Date Admission Date: September 14, 2021 Results & Data ([facility]) Vital Signs (Past 12 Hours) Vital Signs Temp Pulse Resp BP BP Pulse Ox 10/07/21 23:19 36.8 C 69 19 118/62 98 10/07/21 20:35 77 119/68 PG Care Time/CCT Total # of Minutes Spent Total Time Spent with Patient: Total time spent is greater than 50% in coordination of care (as documented) at patient's floor/unit and/or counseling patient: Coding Level of Care Code None Diagnoses Status post laparotomy Z98.890
[2021-10-08] MEDS: AMIODARONE 200 MG TAB PO SCH (08:21)
[2021-10-08] MEDS: METOPROLOL TARTRATE 25 MG TAB PO SCH (08:21)
[2021-10-08] MEDS: LANSOPRAZOLE 30 MG SOLTAB PO SCH (08:21)
[2021-10-08] MEDS: cephALEXin 500 MG CAP PO SCH (08:21)
[2021-10-08] MEDS: APIXABAN 5 MG TABLET PO SCH (08:21)
[2021-10-08] MEDS: UMECLIDINIUM BROMIDE 62.5MCG/BLISTER 7 PUFFS/INHALER INH SCH (08:22)
[2021-10-08] MEDS: FLUTICASONE/VILANTEROL 100/25MCG 14 PUFFS/INHALER INH SCH (08:22)
[2021-10-08] MEDS: POT PHOSPHATE MONOBASIC W/ SOD TAB PO SCH (08:22)
[2021-10-08] MEDS ORDERED: oxyCODONE HCL IR 5 MG TAB (IMMEDIATE RELEASE) PO PRN (10:19)
--- NOTE | 2021-10-08 10:57 | Discharge Summary ---
Date of Service October 08, 2021 Admission HPI Per Admitting Provider This is an 80 y/o female with a PMH of CAD, chronic respiratory failure with hypoxemia due to asbestosis and COPD (on 2-4 L of oxygen at baseline), HTN, HLD, CKD, and MIGDALIA who presented to the ED with progressive abdominal distention and loss of appetite over the past 2-3 weeks. Pt reports symptoms had a gradual onset but have gotten worse since they started. He denies abdominal pain but does report that the bloating is uncomfortable. He is not eating much due to loss of appetite, mild nausea, and frequent regurgitation but denies vomiting. His baseline bowel pattern is every 2-3 days, which continues at present, but he has noted more straining and difficulties with defecation. Denies diarrhea or blood in stools. He denies fevers, chills, sweats, malaise, fatigue, CP, palpitations. He reports a recent course of an unknown antibiotic (finished two days) for cough that persisted x weeks - improved with treatment. He reports otherwise his breathing has been at baseline, which is to say not great but no worse than usual. Denies increased O2 requirement although he does report that pulseox may drop to the 70s with ambulation, comes back up quickly with sitting down and resting. He recently moved to [facility] and is now following with Dr. Nice as his PCP. Admission Exam Per Admitting Provider Constitutional: well developed and well nourished; no acute distress Eyes: + anicteric sclerae Neck: trachea midline Respiratory: + abnormal respiratory effort (mildly increased work of breathing), no respiratory distress and does not use accessory muscles Auscultation: + diminished lung sounds; no rhonchi and no wheezes Cardiovascular: Rate/Rhythm: regular rate and regular rhythm Vessels: radial pulses present Extremities: normal capillary refill; no edema Gastrointestinal (Abdomen): Inspection/Auscultation: + abdomen distended (marked but soft) and + hypoactive bowel sounds Percussion/Palpation: + abdomen tender (minimal diffuse in LQ bilaterally) and + tympanic to percussion; no guarding Musculoskeletal: Head/Neck/Chest: normocephalic, head atraumatic and neck supple Skin: no jaundice Neurologic: moves all extremities; no focal motor deficits and not confused Psychiatric: A+Ox3, euthymic affect Principal Diagnosis Toxic megacolon due to C. difficile Necrotizing colitis Discharge Exam Constitutional WD/WN, vitals as above Respiratory normal respiratory effort; no respiratory distress Auscultation: + diminished lung sounds Cardiovascular Rate/Rhythm: regular rate and regular rhythm Vessels: normal peripheral pulses Extremities: no edema Gastrointestinal (Abdomen) Percussion/Palpation: abdomen soft Ileostomy in place with brown liquid stool, stoma pink; retention sutures in place; midline abdominal incision healing well, dressing in place without s ignificant erythema or drainage Skin no rashes, warm and dry Neurologic no focal motor deficits Psychiatric A+Ox3, euthymic affect Discharge Data Allergies Allergy/AdvReac Type Severity Reaction Status Date / Time diltiazem [From Cardizem] Allergy Severe hives Verified 09/14/21 14:36 telmisartan Allergy Unknown Unknown Verified 09/14/21 14:36 Consultations Critical care General surgery Gastroenterology Cardiology Procedures Performed Operation Date: 09/17/21 09:00 Actual Procedures p Exploratory Laparotomy, Subtotal Colectomy(Not Applicable) - Alverto Chau MD, FACS Ordered Studies 09/14/2021 CT ABD/pelvis IMPRESSION: 1. Prominent colonic gas without evidence of small bowel obstruction or volvulus. 2. Prominence of the appendix, new from prior exam. Clinical correlation is recommended for acute appendicitis. 3. Infrarenal abdominal aortic aneurysm measures 28 mm in diameter, slightly increased from prior exam where it measured 24 mm in diameter. 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 Is being managed for the following: Toxic megacolon due to Clostridioides difficile: Necrotizing colitis Admitting CT a/p:Prominent colonic gas without evidence of small bowel obstruction or volvulus. Prominence of the appendix, new from prior exam. Clinical correlation is recommended for acute appendicitis.3. Infrarenal abdominal aortic aneurysm measures 28 mm in diameter, slightly increased from prior exam where it measured 24 mm in diameter. KUB: 09/15: Gaseous distended loops of large and small bowel suggest ileus versus distal obstruction. Continued follow-up recommended KUB 09/17: light increase in gaseous distention of the colon. Mild small bowel dilatation. The findings could reflect an ileus or distal obstruction Blood cultures negative S/p exploratory laparotomy, subtotal colectomy and end ileostomy On 09/17/2021 (Dr. Chau). Successfully extubated on 09/18/2021. Required PPN for a short amount of time. By the day of discharge, patient was tolerating a regular diet. Patient was started on cephalexin 500 mg twice daily for mild incisional erythema - will be discharged on to complete a 7-day course. Retention suture removed by general surgery on the day of discharge. Follow-up with general surgery in 3 to 4 weeks. Cdiff positive --> initially treated with Vanco and Flagyl and transitioned to Dificid 200 mg twice daily and Florastor 250 mg twice daily. Completed t reatment on 10/17/2021 Atrial fibrillation/ CAD Noted to have A. fib with RVR and subsequently converted to NSR Cardiology was consulted and patient was started on amiodarone. Patient completed loading therapy while admitted, will be discharged on amiodarone 200 mg daily. Patient was started on apixaban 5 mg twice daily for anticoagulation. Home atenolol and verapamil discontinued in favor of metoprolol tartrate 25 mg twice daily for rate control. Follow-up cardiology 4 weeks after discharge to determine duration of amiodarone therapy. KALE Creatinine peaked at 1.65 --> 1.11 on 10/07/2021 Chronic respiratory failure with hypoxemia due to COPD/Asbestosis ( 2-4L of O2 at baseline) Remained stable during hospitalization Saturating well on chronic 4 L of oxygen Continue home inhalers Total Time Total Time Spent Total Time Spent (In Minutes): 45 Discharge Plan Discharge Items Patient Disposition: Transfer [facility] Reason For Visit: ABDOMINAL DISTENTION, LEUKOCYTOSIS Discharge Diagnosis: Toxic megacolon due to C. difficile, necrotizing colitis s/p subtotal colectomy with ileostomy Activity: Per Instructions section Activity Comment: light activity for 4 weeks Lifting: No more than 10 pounds Bathing Comment: may shower; no soaking in tubs/pools Sexual Activity: When tolerated Exercise/Sports: Wait until after follow-up appointment Exercise Comment: wait 4 weeks Non-emergency contact: Primary Care Provider and Surgeon Call non-emergency contact if: you have any medication questions, your symptoms worsen, your pain is not controlled, your pain is concerning for you, your temperature is above 101.5, your wound has increased redness and your wound has increased drainage Follow-up/Referrals: Alverto Chau MD, FACS [Physician] - (In 3 to 4 weeks) Isak Milner MD [Physician] - (in 4 weeks) TISSUELAB, [facility] [Primary Care Provider] - Diet: Regular Addtl Attending Provider Instructions: Patient was admitted for toxic megacolon due to C. difficile and necrotizing colitis s/p subtotal colectomy with ileostomy on 09/17/2021. Patient completed Dificid and Florastor therapy for C. difficile. Patient was started on cephalexin 500 mg twice daily for mild erythema of surgical incision. He will be discharged on cephalexin to complete a 7-day course. Patient developed atrial fibrillation with RVR and was started on amiodarone. Completed loading and will be discharged on amiodarone 200 mg daily. He was started on Eliquis for anticoagulation. Patient will need follow-up with cardiology 4 weeks after discharge to determine duration of amiodarone therapy. Instructions from general surgery: Call your doctor if: * Temperature above 101 degrees * Pain not relieved by pain medicine ordered * There is increased drainage or redness from any incision * You have any unanswered questions or concerns [phone] FOLLOW UP VISIT: If not already scheduled, please call the office for a follow-up visit. 3 to 4 weeks OFFICE PHONE NUMBER: Dr. Chau Office Pending Studies at Discharge: No Stand-Alone Forms: My [facility] Skilled Items Patient informed of condition?: Yes DNR: Yes Discharge Level of Care: Skilled Communicable Disease: Yes Discharge Prognosis: Stable Lines: None Urinary Catheter: No Medications and DC Order Prescriptions: New amiodarone 200 mg Tablet 200 mg PO QAM Qty: 5 RF: 0 cephalexin 500 mg Capsule 500 mg PO BID Qty: 10 RF: 0 lansoprazole [Prevacid SoluTab] 30 mg Tablet,Disintegrat, Delay Rel 30 mg PO QAM Qty: 5 RF: 0 metoprolol tartrate 25 mg Tablet 25 mg PO BID Qty: 10 RF: 0 Eliquis 5 mg Tablet 5 mg PO BID Qty: 10 RF: 0 Continued albuterol sulfate [Ventolin HFA] 90 mcg/actuation HFA aerosol inhaler 2 puff INHALATION Q6 PRN (Reason: Wheezing) Qty: 1 RF: 0 Spiriva with HandiHaler 18 mcg capsule, w/inhalation device See Rx Instructions .ROUTE .COMPLEX Qty: 5 RF: 3 aspirin 81 mg tablet,delayed release (DR/EC) 81 mg PO HS Qty: 5 RF: 0 simvastatin 40 mg tablet 40 mg PO HS Qty: 10 RF: 3 Dulera 200-5 mcg/actuation HFA aerosol inhaler 2 puff inhalation BID Qty: 1 RF: 3 Discontinued atenolol 25 mg tablet 25 mg PO BID Qty: 180 RF: 3 celecoxib [Celebrex] 200 mg capsule 200 mg PO BID Qty: 180 RF: 3 simvastatin 40 mg tablet 40 mg PO HS Qty: 90 RF: 3 aspirin 81 mg tablet,delayed release (DR/EC) 81 mg PO HS RF: 0 verapamil 360 mg capsule,ext rel. pellets 24 hr 360 mg PO QAM RF: 0 ondansetron 4 mg tablet,disintegrating 4 mg PO Q4 PRN (Reason: Nausea) RF: 0 Discharge Orders: Discharge Order (Routine); Ordered 10/08/21 Ordered By: Maria Del Rosario Jimenez/Other Patient Handouts: A1C, Ileostomy: Nutritional Management Admission Data Admit Date/Time: 09/14/21 15:43 Attending Provider: Adelso Finney Admit Provider: Thien Shafer Primary Care Provider: [facility], [facility] Other Providers: Sunita Lord ; Evelin Arroyo ; Adelso Finney ; [facility] ; [facility] ; Alverto Chau ; Thien Shafer ; Gustavo Farfan ; Thanh Quiñonez ; Edward Nair ; Antonio Quintana ; Idris Shaw ; Rudy Ramos ; Mack Hutchinson ; Jadyn Walsh ; Mario Iglesias ; Renard Chandler ; Sergo White ; Sonny Tamayo ; Nathan Ramos ; Mario Coburn Jr ; Wale Cohen ; Karrie Danielle ; Mary Aragon ; Isak Bullock ; Isak Milner ; Alverto Bagley ; Daksha Hansen ; Maisha Carter ; Tyson Santoyo ; Suman Enriquez ; Luis Carlos Tong ; Josefa Garcia Other Interventions: Discharge Summary Assessment (RN) Last Done: 10/08/21 10:23 Supervising Physician Co-Signing Physician Notes Attending addendum: The patient was seen and examined in medical floor He has been stable to be discharged Denies any symptoms today On examination Lying in bed comfortably Hemodynamically stable Chestminimally decreased breath sounds at the bases HeartS1-S2, regular Abdomenstatus post laparotomy with colostomy in situ. 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
== END 2021-10-08 14:52 | DRG 329 ==
LOC: ED 11:51 → SUATTDRO 15:43 → 3E 15:43 → 1E 09-17 12:59 → 2W 09-22 16:59 → 2N 09-26 18:10 → 3E 10-06 02:11

== ENCOUNTER 2021-11-06 12:07 | Observation (INO) ==
[2021-11-06 12:57] LABS: Hematocrit (blood only) 34.3 % (42-52); Hemoglobin 11.1 g/dL (14.0-18.0); Mean Corpuscular Hemoglobin 33.1 pg (25-34); Mean Corpuscular Hgb Conc 32.4 g/dL (32-36); Mean Corpuscular Volume 102.4 fL (80-100); Mean Platelet Volume 11.7 fL (7.4-10.4); Platelet Count 156 K/uL (130-400); RDW Coefficient of Variation 18.3 % (11.5-14.5); RDW Standard Deviation 68.7 fL (36.4-46.3); Red Blood Count 3.35 M/uL (4.7-6.1)
[2021-11-06 13:14] LABS: Partial Thromboplastin Ratio 1.1; Partial Thromboplastin Time 27.7 Seconds (21.0-31.0); Prothrombin Time 10.5 Seconds (9.0-12.0)
--- NOTE | 2021-11-06 13:15 | CT Scan Report ---
CT head/brain wo con CLINICAL HISTORY: Stroke Alert Technique: Contiguous axial CT images of the head were acquired from the base of the skull to the jaiden julia without intravenous contrast administration. Images were viewed in brain, subdural and [facility] . Automated dose lowering techniques and/or adjustment according to patient size were utilized for this exam. Comparison: None available at the time of this dictation. Findings: Areas of decreased attenuation are present in the periventricular and subcortical white matter bilate rally consistent with small vessel ischemic disease. Generalized cerebral atrophy with commensurate e nlargement of the ventricles, sulci, and cisterns is also present. There is no acute intracranial hem orrhage or evidence of acute territorial infarction. No shift of the midline structures, mass effect, or extra-axial abnormalities are shown. Atherosclerotic calcifications are present in the intracran ial segments of the internal carotid arteries. Imaged portions of the paranasal sinuses and mastoid air cells are clear. The orbits appear normal. There are no acute fractures of the calvaria or scalp swelling. Impression: No acute intracranial hemorrhage, no evidence of acute territorial infarction or other acute intracra nial disease process. ACT 112: Negative or not required by law. Electronically signed by: Kamran Modi M.D. 11/06/2021 1:14 PM
[2021-11-06] MEDS ORDERED: SODIUM CHLORIDE 0.9% 1000ML 1,000 ML IV ONE (13:29)
[2021-11-06 13:40] LABS: Albumin Globulin Ratio 0.9 (0.9-2); Albumin Level 3.3 gm/dl (3.4-5.0); BUN Creatinine Ratio 9.3 (10-20); Bilirubin,Total 0.6 mg/dl (0.2-1.0); Calcium 8.6 mg/dl (8.5-10.1); Creatinine Clr Calc Pharmacy 44.1 ml/min; Est GFR (African American) 53.8 ml/min; Est GFR (Non-African American) 46.5 ml/min; Globulin 3.8 gm/dl (2.5-4.0); Magnesium 1.7 mg/dl (1.7-2.4); Total Protein 7.1 gm/dl (6.0-8.3)
--- NOTE | 2021-11-06 13:55 | Electrocardiogram Report ---
Test Reason : Blood Pressure : / mmHG Vent. Rate : 089 BPM Atrial Rate : 089 BPM P-R Int : 172 ms QRS Dur : 116 ms QT Int : 390 ms P-R-T Axes : 067 -47 096 degrees QTc Int : 474 ms Normal sinus rhythm Left axis deviation Left ventricular hypertrophy with QRS widening and repolarization abnormality Abnormal ECG When compared with ECG of 04-OCT-2021 00:14, Voltage criteria for left ventricular hypertrophy now present Confirmed by Sergo White ([id number]) on 11/06/2021 1:55:26 PM Referred By: Confirmed By:Sergo White
--- NOTE | 2021-11-06 14:23 | Emergency Department Note ---
Impression & Plan Weakness of left upper extremity, Weakness of left lower extremity, Chronic respiratory failure with hypoxia ED Provider Note NAME: AIDAN GANDHI AGE: 81 SEX: M ARRIVES VIA: Walk-In INFORMANT: Patient, Daughter. ED PROVIDER(S): Pierre Baldwin MD CHIEF COMPLAINT: Left sided weakness. PLAN: Disposition: Admit MEDICAL DECISION MAKING: The patient is a pleasant 81-year-old gentleman with a past medical history of CAD, atrial fibrillation on aspirin and Plavix (taken off Eliquis several weeks ago due to thought of possible allergy per daughter), chronic respiratory failure with hypoxia in setting of restrictive lung disease/COPD, hypertension, CKD, MIGDALIA who presents to the emergency department accompanied by his daughter for evaluation of left upper extremity weakness which the patient reports he noticed around 5 AM this morning when he awoke from his "catnaps in his recliner" acknowledges the last time he knew for sure he had no symptoms was around 2 AM when he was provided water by staff member at his personal snf. She also reports noticing weakness in his left leg which was new. He reports he is minimally ambulatory at baseline due to his significant dyspnea with minimal exertion. However now he feels he cannot walk due to the weakness in his left leg. Prior today denied any known COVID-19 exposures. Denies any r ecent fevers, chills, cough, congestion, GI or symptoms. On arrival the patient is fatigued appearing but no acute distress, afebrile with stable vital signs. He exhibits 4/5 strength of left upper and left lower extremity. No additional deficits. Speech is fluent. EKG demonstrates normal sinus rhythm with incomplete left bundle branch block, similar to prior. No sgarbossa criteria. WBC and platelets within normal limits. H/H improved from prior. Chemistry without metabolic acidosis. Electrolytes without significant abnormality. Covid-19 RNA, NAAT negative. CT of the head and CTA of the head and neck negative for ICH, ischemia or severe narrowing or occlusion of large vessels. Given the patient's new left-sided upper and lower extremity weakness the patient and his daughter are in agreement with plan for admission for further evaluation. Case was discussed with Sasha Stanford, [facility] PAC, with Dr. Arroyo, [facility] hospitalist who will evaluate the patient for admission. Triage Nursing notes reviewed and agree them. Prior medical records reviewed Vital Signs: reviewed and remarkable for no significant abnormalities Differential diagnosis: Infection, dehydration, metabolic abnormality, hypo/hyperglycemia, electrolyte disturbance, anemia, hypoxia, cardiac sources, intracerebral event, toxicologic, neurologic, as well as other pathologies. ER treatment provided: See below. Diagnostics interpreted by me: ECG: Normal sinus rhythm, 89 bpm, incomplete left bundle branch block, no sgarbossa criteria, QTC 474, QRS 116. Cardiac Monitoring: An order for continuous cardiac monitoring was placed and demonstrated Normal sinus rhythm, 89 bpm, no ectopy. Laboratory studies: See below Imaging studies: See below Consultation(s): Case was discussed with Sasha Stanford, [facility] PAC, with Dr. Arroyo, [facility] hospitalist who will evaluate the patient for admission. HPI: The patient is a pleasant 81-year-old gentleman with a past medical history of CAD, atrial fibrillation on aspirin and Plavix (taken off Eliquis several weeks ago due to thought of possible allergy per daughter), chronic respiratory failure with hypoxia in setting of restrictive lung disease/COPD, hypertension, CKD, MIGDALIA who presents to the emergency department accompanied by his daughter for evaluation of left upper extremity weakness which the patient reports he noticed around 5 AM this morning when he awoke from his "catnaps in his recliner" acknowledges the last time he knew for sure he had no symptoms was around 2 AM when he was provided water by staff member at his personal snf. She also reports noticing weakness in his left leg which was new. He reports he is minimally ambulatory at baseline due to his significant dyspnea with minimal exertion. However now he feels he cannot walk due to the weakness in his left leg. Prior today denied any known COVID-19 exposures. Denies any recent fevers, chills, cough, congestion, GI or symptoms. ROS: See above HPI for pertinent positives & negatives. A total of 10 systems reviewed and were otherwise negative. PAST MEDICAL HISTORY:See Below PAST SURGICAL HISTORY:See Below FAMILY HISTORY:See Below SOCIAL HISTORY:See Below HOME MEDICATIONS:See Below ALLERGIES:See Below VITALS:See Below PHYSICAL EXAMINATION: GENERAL: Awake, alert, chronically ill-appearing, in no distress HENT: Normocephalic, atraumatic. Oropharynx with dry mucous membranes and otherwise unremarkable. EYES: Normal conjunctiva. Sclera non-icteric. EOMI. No nystamgus. PEARRL. NECK: Supple. No nuchal rigidity. FROM. No JVD. RESPIRATORY: Clear to auscultation. CARDIAC: Regular rate, normal rhythm. Extremities warm and well perfused. Pulses equal. ABDOMEN: Soft, non-distended. No tenderness to palpation. No rebound or gu arding. No masses. RECTAL: Deferred. MUSCULOSKELETAL: Chest examination reveals no tenderness. The back is symmetrical on inspection without obvious abnormality. There is no CVA tenderness to palpation. No joint edema. LOWER EXTREMITIES: Calves are equal size bilaterally and non-tender. No edema. No discoloration. NEURO: No sensory or motor deficits noted. 4/5 strength of left upper and left lower extremity. Speech is fluent. CNII-XII grossly intact. SKIN: Generalized dry, scaly, erythematous rash. No jaundice noted. Pierre Baldwin MD Past Med/Surg History Medical History Abdominal pain Anemia Asbestosis Benign prostatic disease CAD (coronary artery disease) Chronic kidney disease Chronic obstructive pulmonary disease Chronic respiratory failure with hypoxia Dehydration Emphysematous bleb Hyperlipidemia Hypertension Impaired fasting glucose Obstructive sleep apnea Paroxysmal atrial fibrillation Pleural effusion on right Pleural plaque with presence of asbestos Pulmonary nodule Surgical History H/O colonoscopy History of cataract surgery History of colectomy 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 Dr. Chau History of shoulder surgery right shoulder surgery Family History Father Emphysema, unspecified Brother Cancer Mother Glaucoma Cancer skin Sister Renal failure Denies family history of Ovarian cancer Prostate cancer Myocardial infarction Breast cancer Colorectal cancer Social History Smoking Status: Former smoker Tobacco Type: Cigarettes Age Started Using Tobacco: 15; Age Quit Using Tobacco: 49; packs per day: 1; Smoking End Date: 1999; Second Hand Exposure: No; Hx Alcohol Use: Yes Alcohol type: beer Alcohol Intake Frequency Comment: has a couple once a week Hx Substance Use: No Preferred Language: Chadian Communication Ability: Effective Visual Impairment: No Limitations Hearing Ability: Normal Manager Investment Required: No Beliefs That Will Affect Care: None marital status: Current Living Situation: Personal Care Facility Current Living Situation Comment: recently moved from [facility] to [facility] current occupational status: retired 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 [employer] How many Children do You have: 2 Feels Safe at Home: Yes Safety Concerns: Feels Safe At This Time Childhood Exposure to Second-Hand Smoke: Yes Dental Care, Regularly: No Physical Activity Frequency: Does not Exercise Seatbelt Use: always Sunscreen Use: No Assistive Devices: Denture - Upper, Denture - Lower, Walker and Wheelchair Assistive Devices Comment: pt uses motorized WC at [facility] Allergies Allergies Allergy/AdvReac Type Severity Reaction Status Date / Time diltiazem [From Cardizem] Allergy Severe hives Verified 11/06/21 15:53 telmisartan Allergy Unknown Unknown Verified 11/06/21 15:53 Home Meds Home Medications Medication Instructions Recorded Confirmed Barrier Cream 1 applic TOPICAL QID 11/06/21 11/06/21 albuterol sulfate 90 mcg/actuation 2 puff INHALATION Q6 PRN 11/06/21 11/06/21 aerosol inhaler (Ventolin HFA) clopidogrel 75 mg tablet 75 mg PO DAILY 11/06/21 11/06/21 diphenhydramine HCl 50 mg capsule 50 mg PO Q8 PRN 11/06/21 11/06/21 (Banophen) ondansetron 4 mg disintegrating 4 mg PO Q4 PRN 11/06/21 11/06/21 tablet Previous Rx's Medication Instructions Recorded amiodarone 200 mg tablet 200 mg PO QAM #5 tab 10/08/21 lansoprazole 30 mg delayed 30 mg PO QAM #5 tab 10/08/21 release,disintegrating tablet (Prevacid SoluTab) metoprolol tartrate 25 mg tablet 25 mg PO BID #10 tab 10/08/21 mometasone-formoterol HFA 200 2 puff INHALATION BID #1 inhaler 10/08/21 mcg-5 mcg/actuation aerosol inhaler (Dulera) tiotropium bromide 18 mcg capsule See Rx Instructions .ROUTE 10/08/21 with inhalation device (Spiriva .COMPLEX #5 capsule with HandiHaler) Results & Data (ED) Vital Signs Vital Signs - 24 hr 11/06/21 12:10 11/06/21 13:25 11/06/21 15:58 Temperature 36.5 C Temperature Source Temporal Artery Scan Pulse Rate 91 H 85 89 Pulse Rate from SpO2 Sensor 89 Respiratory Rate 18 22 Blood Pressure 133/59 L Blood Pressure Mean 83 Blood Pressure Position Sitting Pulse Oximetry 86 L 100 94 Oxygen Delivery Method Nasal Cannula Room Air Nasal Cannula Oxygen Flow Rate 2 4 Sepsis Recent Fever Within 48 Hours No Sepsis New/Unexplained Change in Mental Status No Sepsis Action Taken by Nursing No Action Required 11/06/21 16:00 Temperature Temperature Source Pulse Rate 91 H Pulse Rate from SpO2 Sensor 90 Respiratory Rate 20 Blood Pressure 177/83 H Blood Pressure Mean 114 Blood Pressure Position Pulse Oximetry 88 L Oxygen Delivery Method Nasal Cannula Oxygen Flow Rate 4 Sepsis Recent Fever Within 48 Hours Sepsis New/Unexplained Change in Mental Status Sepsis Action Taken by Nursing Laboratory Data Attestation: I reviewed the patient's lab results. Result diagrams: 11/06/21 12:40 11/06/21 12:40 Lab Results 11/06/21 11/06/21 11/06/21 Range/Units 12:40 12:40 12:40 WBC 8.50 (4.8-10.8) K/uL RBC 3.35 L (4.7-6.1) M/uL Hgb 11.1 L (14.0-18.0) g/dL Hct 34.3 L (42-52) % MCV 102.4 H (80-100) fL MCH 33.1 (25-34) pg MCHC 32.4 (32-36) g/dL RDW Std Deviation 68.7 H (36.4-46.3) fL RDW Coeff of Jairon 18.3 H (11.5-14.5) % Plt Count 156 (130-400) K/uL MPV 11.7 H (7.4-10.4) fL PT 10.5 (9.0-12.0) Seconds INR 1.0 (0.9-1.1) APTT 27.7 (21.0-31.0) Seconds PTT Ratio 1.1 Sodium 139 (136-145) mmol/L Potassium 4.0 (3.5-5.1) mmol/L Chloride 107 (98-107) mmol/L Carbon Dioxide 24 (21-32) mmol/L Anion Gap 8 (3-11) BUN 13 (6-23) mg/dl Creatinine 1.40 (0.6-1.4) mg/dl Est Cr Clr Drug Dosing 44.1 ml/min Est GFR ( Amer) 53.8 ml/min Est GFR (Non-Af Amer) 46.5 ml/min BUN/Creatinine Ratio 9.3 L (10-20) Glucose 126 H (70-99) mg/dl Calcium 8.6 (8.5-10.1) mg/dl Magnesium 1.7 (1.7-2.4) mg/dl Total Bilirubin 0.6 (0.2-1.0) mg/dl AST 13 (13-39) U/L ALT 19 (7-52) U/L Alkaline Phosphatase 95 (34-104) U/L Troponin I (0-0.04) ng/ml Total Protein 7.1 (6.0-8.3) gm/dl Albumin 3.3 L (3.4-5.0) gm/dl Globulin 3.8 (2.5-4.0) gm/dl Albumin/Globulin Ratio 0.9 (0.9-2) SARS-CoV-2, RNA, NAAT (NEGATIVE) 11/06/21 11/06/21 Range/Units 12:40 13:29 WBC (4.8-10.8) K/uL RBC (4.7-6.1) M/uL Hgb (14.0-18.0) g/dL Hct (42-52) % MCV (80-100) fL MCH (25-34) pg MCHC (32-36) g/dL RDW Std Deviation (36.4-46.3) fL RDW Coeff of Jairon (11.5-14.5) % Plt Count (130-400) K/uL MPV (7.4-10.4) fL PT (9.0-12.0) Seconds INR (0.9-1.1) APTT (21.0-31.0) Seconds PTT Ratio Sodium (136-145) mmol/L Potassium (3.5-5.1) mmol/L Chloride (98-107) mmol/L Carbon Dioxide (21-32) mmol/L Anion Gap (3-11) BUN (6-23) mg/dl Creatinine (0.6-1.4) mg/dl Est Cr Clr Drug Dosing ml/min Est GFR ( Amer) ml/min Est GFR (Non-Af Amer) ml/min BUN/Creatinine Ratio (10-20) Glucose (70-99) mg/dl Calcium (8.5-10.1) mg/dl Magnesium (1.7-2.4) mg/dl Total Bilirubin (0.2-1.0) mg/dl AST (13-39) U/L ALT (7-52) U/L Alkaline Phosphatase (34-104) U/L Troponin I 0.03 (0-0.04) ng/ml Total Protein (6.0-8.3) gm/dl Albumin (3.4-5.0) gm/dl Globulin (2.5-4.0) gm/dl Albumin/Globulin Ratio (0.9-2) SARS-CoV-2, RNA, NAAT NEGATIVE (NEGATIVE) Administered Medications Apixaban (Apixaban 5 Mg Tablet) 5 mg PO BID OMID Stop: 12/06/21 20:59 Last Admin: 11/06/21 21:17 Dose: 5 mg Documented by: [id number] Sodium Chloride (Nss 1000ml) 1,000 mls @ 80 mls/hr IV .[id number] OMID Stop: 11/07/21 07:00 Last Admin: 11/06/21 20:41 Dose: 80 mls/hr Documented by: [id number] Metoprolol Tartrate (Metoprolol Tartrate 25 Mg Tab) 25 mg PO BID OMID Stop: 12/06/21 20:59 Last Admin: 11/06/21 21:17 Dose: 25 mg Documented by: [id number] Discontinued Medications Alprazolam (Alprazolam 0.25 Mg Tablet) 0.25 mg PO ONE ONE Stop: 11/06/21 18:32 Last Admin: 11/06/21 19:21 Dose: 0.25 mg Documented by: [id number] Aspirin (Aspirin 81 Mg Chew) 324 mg PO NOW STA Stop: 11/06/21 17:42 Last Admin: 11/06/21 17:50 Dose: 324 mg Documented by: [id number] Sodium Chloride (Nss 1000ml) 1,000 mls @ 999 mls/hr IV .Q1H1M ONE Stop: 11/06/21 14:29 Last Infusion: 11/06/21 14:39 Dose: 0 mls/hr Documented by: [id number] Admin: 11/06/21 13:32 Dose: 999 mls/hr Documented by: [id number] Ioversol (Optiray 320 125ml) 114 ml IV ONCE ONE Stop: 11/06/21 14:58 Last Admin: 11/06/21 14:57 Dose: 114 ml Documented by: [id number] Imaging Data Radiologist's Impression: Head CT 11/06/21 12:16 CT head/brain wo con CLINICAL HISTORY: Stroke Alert Technique: Contiguous axial CT images of the head were acquired from the base of the skull to the vertex without intravenous contrast administration. Images were viewed in brain, subdural and bone windows. Automated dose lowering techniques and/or adjustment according to patient size were utilized for this exam. Comparison: None available at the time of this dictation. Findings: Areas of decreased attenuation are present in the periventricular and subcortical white matter bilaterally consistent with small vessel ischemic disease. Generalized cerebral atrophy with commensurate enlargement of the ventricles, sulci, and cisterns is also present. There is no acute intracranial hemorrhage or evidence of acute territorial infarction. No shift of the midline structures, mass effect, or extra-axial abnormalities are shown. Atherosclerotic calcifications are present in the intracranial segments of the internal carotid arteries. Imaged portions of the paranasal sinuses and mastoid air cells are clear. The orbits appear normal. There are no acute fractures of the calvaria or scalp swelling. Impression: No acute intracranial hemorrhage, no evidence of acute territorial infarction or other acute intracranial disease process. ACT 112: Negative or not required by law. Electronically signed by: Kamran Modi M.D. 11/06/2021 1:14 PM Head CTA 11/06/21 13:28 CT angio head w con, CT angio neck with con CLINICAL HISTORY: LUE weakness. LKW 2am TECHNIQUE: CT angiography of the head and neck was performed following intravenous administration of iodinated contrast. Coronal and sagittal MIPS were obtained from the axial data set and were submitted for review. Automated dose lowering techniques and/or adjustment according to patient size were utilized for this examination. All measurements were calculated based on NASCET criteria. Comparison: Comparison is made to CT head 11/06/2021 FINDINGS: CTA Neck: The left common carotid artery shares common origin with the innominate artery. There is no significant atherosclerotic plaque in the aortic arch or the origins of the innominate, left common carotid, and left subclavian arteries. The common carotid, external carotid, cervical segments of the inter nal carotid arteries, and the cervical segments of the vertebral arteries are patent without hemodynamically significant stenosis. The right vertebral artery is dominant. Biapical scarring and emphysematous changes are seen in the lungs. CTA Head: The anterior and posterior cerebral circulations are patent. No hemodynamically significant stenosis, aneurysm, dissection, or arteriovenous malformation is shown. Atherosclerotic disease is noted. IMPRESSION: 1. No acute intracranial hemorrhage, evidence of acute territorial infarction, or other acute intracranial disease process. 2. No occlusion, hemodynamically significant stenosis, aneurysm, dissection, or arteriovenous malformation in the major intracranial arteries. 3. No occlusion, hemodynamically significant stenosis, or dissection in the johnnie or cervical arteries. Assessment of stenosis of the internal carotid arteries is based on NASCET criteria. ACT 112: Negative or not required by law. Electronically signed by: Kamran Modi M.D. 11/06/2021 3:19 PM Neck CTA 11/06/21 13:28 CT angio head w con, CT angio neck with con CLINICAL HISTORY: LUE weakness. LKW 2am TECHNIQUE: CT angiography of the head and neck was performed following intravenous administration of iodinated contrast. Coronal and sagittal MIPS were obtained from the axial data set and were submitted for review. Automated dose lowering techniques and/or adjustment according to patient size were utilized for this examination. All measurements were calculated based on NASCET criteria. Comparison: Comparison is made to CT head 11/06/2021 FINDINGS: CTA Neck: The left common carotid artery shares common origin with the innominate artery. There is no significant atherosclerotic plaque in the aortic arch or the origins of the innominate, left common carotid, and left subclavian arteries. The common carotid, external carotid, cervical segments of the internal carotid arteries, and the cervical segments of the vertebral arteries are patent without hemodynamically significant stenosis. The right vertebral artery is dominant. Biapical scarring and emphysematous changes are seen in the lungs. CTA Head: The anterior and posterior cerebral circulations are patent. No hemodynamically significant stenosis, aneurysm, dissection, or arteriovenous malformation is shown. Atherosclerotic disease is noted. IMPRESSION: 1. No acute intracranial hemorrhage, evidence of acute territorial infarction, or other acute intracranial disease process. 2. No occlusion, hemodynamically significant stenosis, aneurysm, dissection, or arteriovenous malformation in the major intracranial arteries. 3. No occlusion, hemodynamically significant stenosis, or dissection in the major cervical arteries. Assessment of stenosis of the internal carotid arteries is based on NASCET criteria. ACT 112: Negative or not required by law. Electronically signed by: Kamran Modi M.D. 11/06/2021 3:19 PM Discharge Plan Visit Data Chief Complaint: TIA Symptoms Stated Complaint: L SIDE WEAK, ARM, LEG, BACK ED Provider: Pierre Baldwin Discharge Problem: Weakness of left upper extremity, Weakness of left lower extremity, Chronic respiratory failure with hypoxia Patient Disposition: Admitted As Inpatient Discharge Instructions Interventions: ED Discharge Assessment Last Done: 11/06/21 18:13
[2021-11-06] MEDS ORDERED: OPTIRAY 320 125ml IV ONE (14:57)
--- NOTE | 2021-11-06 15:21 | CT Scan Report ---
CT angio head w con, CT angio neck with con CLINICAL HISTORY: LUE weakness. LKW 2am TECHNIQUE: CT angiography of the head and neck was performed following intravenous administration of iodinated contrast. Coronal and sagittal MIPS were obtained from the axial data set and were submitte d for review. Automated dose lowering techniques and/or adjustment according to patient size were ut ilized for this examination. All measurements were calculated based on NASCET criteria. Comparison: Comparison is made to CT head 11/06/2021 FINDINGS: CTA Neck: The left common carotid artery shares common origin with the innominate artery. There is n o significant atherosclerotic plaque in the aortic arch or the origins of the innominate, left common carotid, and left subclavian arteries. The common carotid, external carotid, cervical segments of the internal carotid arteries, and the cervical segments of the vertebral arteries are patent without hemodynamically significant stenosis. The right vertebral artery is dominant. Biapical scarring and emphysematous changes are seen in the lungs. CTA Head: The anterior and posterior cerebral circulations are patent. No hemodynamically significan t stenosis, aneurysm, dissection, or arteriovenous malformation is shown. Atherosclerotic disease is noted. IMPRESSION: 1. No acute intracranial hemorrhage, evidence of acute territorial infarction, or other acute intrac ranial disease process. 2. No occlusion, hemodynamically significant stenosis, aneurysm, dissection, or arteriovenous malfor mation in the major intracranial arteries. 3. No occlusion, hemodynamically significant stenosis, or dissection in the major cervical arteries. Assessment of stenosis of the internal carotid arteries is based on NASCET criteria. ACT 112: Negative or not required by law. Electronically signed by: Kamran Modi M.D. 11/06/2021 3:19 PM
--- NOTE | 2021-11-06 15:59 | History & Physical Report ---
Date of Service November 06, 2021 Assessment & Plan (1) Stroke-like symptoms: (2) Left-sided weakness: Plan: Patient is 81 y/o M with PMH chronic hypoxic respiratory failure, COPD, asbestosis, on 2 to 4 L O2 at baseline, HTN, HLD, CKD III, MIGDALIA presented to ER with complaint of left hand weakness and left leg heaviness/weakness today at 5am when woke up. States up around 2am and was asymptomatic. CT HEAD: No acute intracranial abnormality CTA HEAD & NECK: 1. No acute intracranial hemorrhage, evidence of acute territorial infarction, or other acute intracranial disease process. 2. No occlusion, hemodynamically significant stenosis, aneurysm, dissection, or arteriovenous malformation in the major intracranial arteries. 3. No occlusion, hemodynamically significant stenosis, or dissection in the major cervical arteries. DDX: TIA vs CVA -Tele to monitor for arrhythmias -Obtain troponin -Patient was taken off Eliquis several weeks ago secondary to rash. Rash however has continued to be present. Less likely Eliquis is causing rash. -Will restart Eliquis secondary to patient's h/o PAF. Monitor renal functions to see if Eliquis dosing needs adjusted -Patient was placed on Plavix in place of Eliquis recently. Will stop Plavix -Patient previously was on simvastatin however it is not on his current med list from [facility]. Will start rosuvastatin -Lipid panel in am -A1c: 6.8 on 09/19/21 -MRI brain -echo with bubble study -aspiration precautions -PT/OT consult -neurology consult (3) Rash: Plan: Patient with diffuse rash that he reports present during previous hospitaliz ation. Thought Eliquis may be cause and was discontinued a couple of weeks ago without change in rash Less likely Eliquis cause of rash -May need to consider dermatology referral Sacral pressure wound -Wound nurse consult (4) Paroxysmal atrial fibrillation: Plan: History episode A. fib RVR that converted to normal sinus rhythm during hospitalization 08/2021. Was started on amiodarone and Eliquis Eliquis was discontinued outpatient secondary to possible rash Current sinus rhythm -Will restart Eliquis as above -Continue amiodarone, metoprolol tartrate (5) Acute kidney injury superimposed on CKD: Plan: CKD III Cr: 1.4. Was 1.1 on 10/07/21. H/O KALE during hospital admission 08/2021 Gentle IVF Monitor renal functions, avoid nephrotoxic agents when possible (6) Chronic respiratory failure with hypoxia: Plan: Asbestos, COPD On chronic 2-4 L Denies any increased shortness of breath, cough. -Continue oxygen, home inhalers (7) Hyperlipidemia: Plan: Previously was on simvastatin, has dropped off med list -Start rosuvastatin (8) Obstructive sleep apnea: Plan: Noncompliant with CPAP DVT Prophylaxis -Eliquis DNR/DNI as per discussion with pt Follows with Dr Nice at [facility] for routine care Pt was seen and care coordinated with Dr Arroyo. See addendum History of Present Illness Chief Complaint: Weakness Primary Care Provider: [facility] Patient is 81 y/o M with PMH chronic hypoxic respiratory failure, COPD, asbestosis, on 2 to 4 L O2 at baseline, HTN, HLD, CKD III, MIGDALIA presented to ER with complaint of left-sided weakness. Patient states this morning around 5 AM he reached for phone and was unable to grasp or hold found secondary to left rodrigez d weakness. Patient reports at baseline uses electric wheelchair secondary to chronic shortness of breath with exertion. He states this morning he had left leg heaviness and when trying to stand to pivot into wheelchair was unable to bear weight on left leg. He reports around 2 AM staff brings him water and he felt at his baseline at that time. Denies headache, dizziness, vision changes, or right-sided weakness, paresthesias, chest pain, shortness of breath, facial drooping or speech changes. Denies having increased output to colostomy bag. Denies any increased SOB. Denies fever/chills, diaphoresis, N/V, hematochezia, syncope, neck pain, CP, palpitations, cough, sore throat, choking, otalgia, rhinorrhea, abdominal pain, extremity edema, urinary symptoms. Recent admission 09/14/2021-10/08/2021 for C. 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 He was treated with Vanco and Flagyl and transitioned to Dificid 200 mg and completed treatment. Dduring hospitalization developed A. fib RVR and subsequently converted to normal sinus rhythm. He was started on amiodarone and Eliquis. His home atenolol and verapamil was discontinued and metoprolol tartrate started. Also had KALE during hospitalization also that resolved. Patient was discharged on Keflex for incision erythema. Patient states had rash during hospitalization. It is reported patient's Eliquis was discontinued a couple of weeks ago secondary to possible cause of rash, however rash still present. Patient reports previously was taking aspirin however aspirin is not listed on his medication list from [facility]. Previously was on simvastatin however that is also on not on his home medication list. Allergies Allergy/AdvReac Type Severity Reaction Status Date / Time diltiazem [From [facility]] Allergy Severe hives Verified 11/06/21 15:53 telmisartan Allergy Unknown Unknown Verified 11/06/21 15:53 Home Medications Medication Instructions Recorded Confirmed Type amiodarone 200 mg tablet 200 mg PO QAM #5 tab 10/08/21 11/06/21 Rx lansoprazole 30 mg delayed 30 mg PO QAM #5 tab 10/08/21 11/06/21 Rx release,disintegrating tablet (Prevacid SoluTab) metoprolol tartrate 25 mg tablet 25 mg PO BID #10 tab 10/08/21 11/06/21 Rx mometasone-formoterol HFA 200 2 puff INHALATION BID #1 inhaler 10/08/21 11/06/21 Rx mcg-5 mcg/actuation aerosol inhaler (Dulera) tiotropium bromide 18 mcg capsule See Rx Instructions .ROUTE 10/08/21 11/06/21 Rx with inhalation device (Spiriva .COMPLEX #5 capsule with HandiHaler) Barrier Cream 1 applic TOPICAL QID 11/06/21 11/06/21 History albuterol sulfate 90 mcg/actuation 2 puff INHALATION Q6 PRN 11/06/21 11/06/21 History aerosol inhaler (Ventolin HFA) clopidogrel 75 mg tablet 75 mg PO DAILY 11/06/21 11/06/21 History diphenhydramine HCl 50 mg capsule 50 mg PO Q8 PRN 11/06/21 11/06/21 History (Banophen) ondansetron 4 mg disintegrating 4 mg PO Q4 PRN 11/06/21 11/06/21 History tablet Past Med/Surg History Medical History (Updated 11/06/21 @ 17:57 by Meghan Stanford PA-C) Abdominal pain Anemia Asbestosis Benign prostatic disease CAD (coronary artery disease) Chronic kidney disease Chronic obstructive pulmonary disease Chronic respiratory failure with hypoxia Dehydration Emphysematous bleb Hyperlipidemia Hypertension Impaired fasting glucose Obstructive sleep apnea Paroxysmal atrial fibrillation Pleural effusion on right Pleural plaque with presence of asbestos Pulmonary nodule Surgical History (Updated 11/06/21 @ 17:57 by Meghan Stanford PA-C) H/O colonoscopy History of cataract surgery History of colectomy 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 Dr. Chau History of shoulder surgery right shoulder surgery Family History Father Emphysema, unspecified Brother Cancer Mother Glaucoma Cancer skin Sister Renal failure Denies family history of Ovarian cancer Prostate cancer Myocardial infarction Breast cancer Colorectal cancer Social History (Updated 11/06/21 @ 17:24 by Meghan Stanford PA-C) Smoking Status: Former smoker Tobacco Type: Cigarettes Age Started Using Tobacco: 15; Age Quit Using Tobacco: 49; packs per day: 1; Second Hand Exposure: No; Hx Alcohol Use: Yes Alcohol type: beer Alcohol Intake Frequency Comment: has a couple once a week Hx Substance Use: Yes Preferred Language: Afghan Communication Ability: Effective Visual Impairment: No Limitations Hearing Ability: Normal Demand Generator Manager Required: No Beliefs That Will Affect Care: None marital status: Current Living Situation: Spouse and Personal Care Facility Current Living Situation Comment: recently moved from [facility] to [facility] current occupational status: retired 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 [employer] How many Children do You have: 2 Feels Safe at Home: Yes Childhood Exposure to Second-Hand Smoke: Yes Dental Care, Regularly: No Physical Activity Frequency: Does not Exercise Seatbelt Use: always Sunscreen Use: No Assistive Devices: Walker Review of Systems Review of Systems: All systems reviewed & are unremarkable except as noted in HPI & below Physical Exam Physical Exam: General: no distress, WDWN Head: normocephalic, atraumatic Eyes: PERRL, EOM's intact, conjunctiva non-injected, anicteric ENT: normal inspection external ears, nose, mucous membranes moist Neck: supple, trachea midline Lungs: clear, no respiratory distress on chronic 4L oxygen via NC, +diminished breath sounds throughout CV: RRR, no murmur, no pretibial edema Abd: +colostomy bag in place with brown soft stool in bag, +healed surgical incision mid abdomen, normal BS, soft, non-tender Ext: no cyanosis, no calf tenderness Neuro: A&O x 3, Visual durbin intact. PERRL, EOMs intact. No nystagmus, facial sensation is intact and symmetric, the face is strong and symmetric, Hearing grossly intact, Soft palate elevates symmetrically, no dysarthria, Shoulder shrug intact, Tongue is midline, normal movement, no fasciculations, strength 4/5 left leg, 5/5 right leg, +decreased hospice consultant strength left hand compared to right Skin: warm, dry, +diffuse erythematous maculopapular rash with erythematous lace like appearance, +scattered excoriations and petechiae to bilateral lower legs, +excoriations to bilateral arms +nonblanching erythema to sacrum with approx 1cm skin tear to right buttock Results & Data Results & Data ([facility]) Vital Signs (Past 12 Hours) Vital Signs Temp Pulse Resp BP Pulse Ox 11/06/21 13:25 85 22 100 11/06/21 12:10 36.5 C 91 H 18 133/59 L 86 L Laboratory Results Short CBC 11/06/21 11/06/21 Range/Units 12:40 12:40 WBC 8.50 (4.8-10.8) K/uL Hgb 11.1 L (14.0-18.0) g/dL Hct 34.3 L (42-52) % Plt Count 156 (130-400) K/uL Creatinine 1.40 (0.6-1.4) mg/dl BMP 11/06/21 12:40 Sodium 139 Potassium 4.0 Chloride 107 Carbon Dioxide 24 BUN 13 Creatinine 1.40 Glucose 126 H Calcium 8.6 Liver Function 11/06/21 Range/Units 12:40 Total Bilirubin 0.6 (0.2-1.0) mg/dl AST 13 (13-39) U/L ALT 19 (7-52) U/L Alkaline Phosphatase 95 (34-104) U/L Albumin 3.3 L (3.4-5.0) gm/dl Diagnostic Findings Head CT 11/06/21 12:16 CT head/brain wo con CLINICAL HISTORY: Stroke Alert Technique: Contiguous axial CT images of the head were acquired from the base of the skull to the vertex without intravenous contrast administration. Images were viewed in brain, subdural and bone windows. Automated dose lowering techniques and/or adjustment according to patient size were utilized for this exam. Comparison: None available at the time of this dictation. Findings: Areas of decreased attenuation are present in the periventricular and subcortical white matter bilaterally consistent with small vessel ischemic disease. Generalized cerebral atrophy with commensurate enlargement of the ventricles, sulci, and cisterns is also present. There is no acute intracranial hemorrhage or evidence of acute territorial infarction. No shift of the midline structures, mass effect, or extra-axial abnormalities are shown. Atherosclerotic calcifications are present in the intracranial segments of the internal carotid arteries. Imaged portions of the paranasal sinuses and mastoid air cells are clear. The orbits appear normal. There are no acute fractures of the calvaria or scalp swelling. Impression: No acute intracranial hemorrhage, no evidence of acute territorial infarction or other acute intracranial disease process. ACT 112: Negative or not required by law. Electronically signed by: Kamran Modi M.D. 11/06/2021 1:14 PM Head CTA 11/06/21 13:28 CT angio head w con, CT angio neck with con CLINICAL HISTORY: LUE weakness. LKW 2am TECHNIQUE: CT angiography of the head and neck was performed following intravenous administration of iodinated contrast. Coronal and sagittal MIPS were obtained from the axial data set and were submitted for review. Automated dose lowering techniques and/or adjustment according to patient size were utilized for this examination. All measurements were calculated based on NASCET criteria. Comparison: Comparison is made to CT head 11/06/2021 FINDINGS: CTA Neck: The left common carotid artery shares common origin with the innominate artery. There is no significant atherosclerotic plaque in the aortic arch or the origins of the innominate, left common carotid, and left subclavian arteries. The common carotid, external carotid, cervical segments of the internal carotid arteries, and the cervical segments of the vertebral arteries are patent without hemodynamically significant stenosis. The right vertebral artery is dominant. Biapical scarring and emphysematous changes are seen in the lungs. CTA Head: The anterior and posterior cerebral circulations are patent. No hemodynamically significant stenosis, aneurysm, dissection, or arteriovenous malformation is shown. Atherosclerotic disease is noted. IMPRESSION: 1. No acute intracranial hemorrhage, evidence of acute territorial infarction, or other acute intracranial disease process. 2. No occlusion, hemodynamically significant stenosis, aneurysm, dissection, or arteriovenous malformation in the major intracranial arteries. 3. No occlusion, hemodynamically significant stenosis, or dissection in the major cervical arteries. Assessment of stenosis of the internal carotid arteries is based on NASCET criteria. ACT 112: Negative or not required by law. Electronically signed by: Kamran Modi M.D. 11/06/2021 3:19 PM Neck CTA 11/06/21 13:28 CT angio head w con, CT angio neck with con CLINICAL HISTORY: LUE weakness. LKW 2am TECHNIQUE: CT angiography of the head and neck was performed following intravenous administration of iodinated contrast. Coronal and sagittal MIPS were obtained from the axial data set and were submitted for review. Automated dose lowering techniques and/or adjustment according to patient size were utilized for this examination. All measurements were calculated based on NASCET criteria. Comparison: Comparison is made to CT head 11/06/2021 FINDINGS: CTA Neck: The left common carotid artery shares common origin with the innominate artery. There is no significant atherosclerotic plaque in the aortic arch or the origins of the innominate, left common carotid, and left subclavian arteries. The common carotid, external carotid, cervical segments of the internal carotid arteries, and the cervical segments of the vertebral arteries are patent without hemodynamically significant stenosis. The right vertebral artery is dominant. Biapical scarring and emphysematous changes are seen in the lungs. CTA Head: The anterior and posterior cerebral circulations are patent. No hemodynamically significant stenosis, aneurysm, dissection, or arteriovenous malformation is shown. Atherosclerotic disease is noted. IMPRESSION: 1. No acute intracranial hemorrhage, evidence of acute territorial infarction, or other acute intracranial disease process. 2. No occlusion, hemodynamically significant stenosis, aneurysm, dissection, or arteriovenous malformation in the major intracranial arteries. 3. No occlusion, hemodynamically significant stenosis, or dissection in the major cervical arteries. Assessment of stenosis of the internal carotid arteries is based on NASCET criteria. ACT 112: Negative or not required by law. Electronically signed by: Kamran Modi M.D. 11/06/2021 3:19 PM Supervising Physician Co-Signing Physician Notes I have seen and examined the patient and have discussed the case with the provider above. I agree with the assessment and plan as stated. 81 yo M with stroke like symptoms that began this morning. Still reports left leg "feeling heavy" and cannot hospice consultant with right hand or perform opposing digits. Cannot grasp objects. No other issues with eating, swallowing, denies headache, no visual changes and no sensation changes to limbs. He cannot sit up well at baseline and is very deconditioned, wheelchair bound and with chronic hypoxia 2/2 asbestos on 4 LPM supplemental nasal canula. He states that he doesn't go anywhere, not event to doctor visits because he gets too short of breath when transferring into his chair. Physical exam reveals a diffuse erythematous raised, almost continuous rash affected entire body, sparing the face. He is obese and in NAD, Lungs CTA B, heart exam reveals S1/2 without m/g/r, no lower extremity edema. Limbs are warm and well perfused. Abdomen is soft and NTND. He is mentating clearly. CN 2-12 grossly intact, strength intact throughout, including in LLE. Gait could not be assessed and he was unable to sit up in the bed. PERRL, EOMI. MMM. Head and neck CTA revealed no acute intracranial hemorrhage, evidence of acute infarction or other intracranial disease process. There is no hemodynamically significant stenosis, aneurysm dissection or arterial venous malformation in the major intracranial arteries. Head CT revealed no acute intracranial hemorrhage and no evidence of stroke. Agree with plan above to complete stroke work-up including brain MRI, echo with bubble study, PT, OT, speech evaluations. It is uncertain what happened with his apixaban recently, however patient was taking Plavix in lieu of Eliquis. Will put him back on Eliquis at this time and attempt to work with dermatology to help figure out his rash. Patient states rash started during his last [facility] stay in September. States it is occasionally itchy. Appreciate neurology recommendations regarding strokelike symptoms. Evelin Arroyo,
[2021-11-06] MEDS ORDERED: ASPIRIN 81 MG CHEW PO STA (17:41)
[2021-11-06] MEDS ORDERED: ALPRAZolam 0.25 MG TABLET PO ONE (18:31)
[2021-11-06] MEDS ORDERED: ALBUTEROL HFA 8 GM INHALER INH PRN (18:31)
[2021-11-06] MEDS ORDERED: SODIUM CHLORIDE 0.9% 1000ML 1,000 ML IV SCH (18:31)
[2021-11-06] MEDS ORDERED: PHARMACIST DISCHARGE MED REC CONSULT PRN (18:31)
[2021-11-06] MEDS ORDERED: ACETAMINOPHEN 325 MG TAB PO PRN (18:31)
--- NOTE | 2021-11-06 20:54 | Magnetic Resonance Report ---
MR brain wo con HISTORY: 81 years-old Male left sided weakness acute strokelike symptoms COMPARISON: Head CT of same day TECHNIQUE: Multiplanar multisequence MRI of the brain was obtained without contrast. FINDINGS: 10 mm focus of restricted diffusion involves the centrum semiovale of the right frontal lobe on image 18 series 5 with decreased signal on the ADC map. Punctate focus of restricted diffusion without cor responding decreased signal on ADC map involves the periventricular right occipital lobe on image 13 series 5. No acute or subacute territorial infarct. Midline structures appear unremarkable with parti ally empty sella. There is no acute intracranial hemorrhage, midline shift, abnormal extra axial roland ection, hydrocephalus or intracranial mass. Age-related involutional changes. Moderate T2/FLAIR hyper intense foci are noted throughout the white matter. Senescent calcifications of the basal ganglia. Cerebral venous sinuses and major arterial flow voids appear patent. Right mastoid effusion. Mild mucosal thickening of the paranasal sinuses. Prior bilate ral lens repair. The skull and soft tissues are unremarkable. IMPRESSION: 1. 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 2. Punctate focus of increased diffusion-weighted signal within the periventricular right occipital l obe is likely artifactual. A tiny acute or subacute infarct could appear similarly. 3. Age-related involutional changes with moderate chronic microvascular ischemic disease. ACT 112: Negative or not required by law. The above report was generated using voice recognition software. It may contain grammatical, syntax o r spelling errors. Electronically signed by: [place] M.D. 11/06/2021 8:53 PM
[2021-11-06] MEDS: APIXABAN 5 MG TABLET PO SCH (21:17)
[2021-11-06] MEDS: METOPROLOL TARTRATE 25 MG TAB PO SCH (21:17)
[2021-11-07 07:22] LABS: Hematocrit (blood only) 33.3 % (42-52); Hemoglobin 10.8 g/dL (14.0-18.0); Mean Corpuscular Hemoglobin 33.3 pg (25-34); Mean Corpuscular Hgb Conc 32.4 g/dL (32-36); Mean Corpuscular Volume 102.8 fL (80-100); Mean Platelet Volume 11.1 fL (7.4-10.4); Platelet Count 140 K/uL (130-400); RDW Coefficient of Variation 18.2 % (11.5-14.5); RDW Standard Deviation 69.3 fL (36.4-46.3); Red Blood Count 3.24 M/uL (4.7-6.1); White Blood Count 6.15 K/uL (4.8-10.8)
[2021-11-07 07:45] LABS: BUN Creatinine Ratio 10.1 (10-20); Calcium 7.8 mg/dl (8.5-10.1); Creatinine Clr Calc Pharmacy 51.9 ml/min; Est GFR (African American) 65.5 ml/min; Est GFR (Non-African American) 56.5 ml/min; Potassium 4.1 mmol/L (3.5-5.1)
[2021-11-07 08:09] LABS: Eosinophils # (auto) 0.13 K/uL (0-0.5); Eosinophils % (auto) 2.1 %; Immature Granulocytes # (auto) 0.08 K/uL (0.00-0.02); Immature Granulocytes % (auto) 1.3 %; Lymphocytes % (auto) 9.8 %; Monocytes # (auto) 0.86 K/uL (0.11-0.59); Neutrophils # (auto) 4.48 K/uL (1.4-6.5); Neutrophils % (auto) 72.8 %
[2021-11-07] MEDS: ROSUVASTATIN CALCIUM 20 MG TAB PO SCH (08:17)
[2021-11-07] MEDS: APIXABAN 5 MG TABLET PO SCH ×2 (08:17→21:35)
[2021-11-07] MEDS: LANSOPRAZOLE 30 MG SOLTAB PO SCH (08:17)
[2021-11-07] MEDS: AMIODARONE 200 MG TAB PO SCH (08:17)
[2021-11-07] MEDS: CLOPIDOGREL BISULFATE 75 MG TAB PO SCH (08:17)
[2021-11-07] MEDS: UMECLIDINIUM BROMIDE 62.5MCG/BLISTER 7 PUFFS/INHALER INH SCH (08:17)
[2021-11-07] MEDS: METOPROLOL TARTRATE 25 MG TAB PO SCH ×2 (08:17→21:35)
[2021-11-07] MEDS: FLUTICASONE/VILANTEROL 100/25MCG 14 PUFFS/INHALER INH SCH (08:18)
[2021-11-07] MEDS ORDERED: ASPIRIN 81 MG ECTAB PO SCH (09:00)
[2021-11-07] MEDS ORDERED: CLOPIDOGREL BISULFATE 75 MG TAB PO SCH (09:00)
--- NOTE | 2021-11-07 10:20 | Neurology Consultation ---
Date of Consultation November 07, 2021 Assessment & Plan (1) CVA (cerebral vascular accident): 1. restart Eliquis 5 mg twice daily 2. optimize HTN, HLD LDL <70 consider patients age 3. MRI right frontal lobe infarct 4. TTE no ASD 5. PT/OT for discharge needs 6. unclear if plavix was ongoing treatment follow up in neurology in 4-6 weeks Daniela Henry PAC schedule (2) Weakness of left upper extremity: (3) Weakness of left lower extremity: Supervising Physician Co-Signing Physician Notes Patient was seen and examined. He is watching TV comfrotably. Noted to have new onset left hand weakness x3 days. Histoyr of Afib. Eliquis was stopped. MRI reviewed and shows embolic stroke in the right MCA and PRODUCT MANAGEMENT INTERN territories. CTA head and neck reviewed. No high grade stenosis. agre with restarting Eliquis. Blood pressures well controlled. Neurology follow up as outpatient. Please call with any additional questions or concerns. History of Present Illness Reason for Consultation: stroke like symptoms Requesting Physician: Evelin Arroyo DO Attending Physician: Evelin Arroyo DO History of Present Illness Alec is an 81 year old male with PMH- chronic hypoxic respiratory failure, COPD, asbestosis, on 2 to 4 L O2 at baseline, HTN, HLD, CKD III, MIGDALIA presented to [facility] ER 11/06/21 with left-sided weakness.Around 5 AM he reached for phone and was unable to grasp or hold found secondary to left hand weakness. At baseline uses electric wheelchair secondary to chronic shortness of breath with exertion. He had left leg heaviness and when trying to stand to pivot into wheelchair was unable to bear weight on left leg. He was at baseline at 2 AM when staff brought him water. He is still having issues with using is left hand. he was also unable to ambulate to his chair prior to coming into the hospital. Allergies Allergy/AdvReac Type Severity Reaction Status Date / Time diltiazem [From Cardizem] Allergy Severe hives Verified 11/06/21 15:53 telmisartan Allergy Unknown Unknown Verified 11/06/21 15:53 Home Medications Medication Instructions Recorded Confirmed Type amiodarone 200 mg tablet 200 mg PO QAM #5 tab 10/08/21 11/06/21 Rx lansoprazole 30 mg delayed 30 mg PO QAM #5 tab 10/08/21 11/06/21 Rx release,disintegrating tablet (Prevacid SoluTab) metoprolol tartrate 25 mg tablet 25 mg PO BID #10 tab 10/08/21 11/06/21 Rx mometasone-formoterol HFA 200 2 puff INHALATION BID #1 inhaler 10/08/21 11/06/21 Rx mcg-5 mcg/actuation aerosol inhaler (Dulera) tiotropium bromide 18 mcg capsule See Rx Instructions .ROUTE 10/08/21 11/06/21 Rx with inhalation device (Spiriva .COMPLEX #5 capsule with HandiHaler) Barrier Cream 1 applic TOPICAL QID 11/06/21 11/06/21 History albuterol sulfate 90 mcg/actuation 2 puff INHALATION Q6 PRN 11/06/21 11/06/21 History aerosol inhaler (Ventolin HFA) clopidogrel 75 mg tablet 75 mg PO DAILY 11/06/21 11/06/21 History diphenhydramine HCl 50 mg capsule 50 mg PO Q8 PRN 11/06/21 11/06/21 History (Banophen) ondansetron 4 mg disintegrating 4 mg PO Q4 PRN 11/06/21 11/06/21 History tablet Patient History Medical History Abdominal pain Anemia Asbestosis Benign prostatic disease CAD (coronary artery disease) Chronic kidney disease Chronic obstructive pulmonary disease Chronic respiratory failure with hypoxia Dehydration Emphysematous bleb Hyperlipidemia Hypertension Impaired fasting glucose Obstructive sleep apnea Paroxysmal atrial fibrillation Pleural effusion on right Pleural plaque with presence of asbestos Pulmonary nodule Surgical History H/O colonoscopy History of cataract surgery History of colectomy 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 Dr. Chau History of shoulder surgery right shoulder surgery Family History Father Emphysema, unspecified Brother Cancer Mother Glaucoma Cancer skin Sister Renal failure Denies family history of Ovarian cancer Prostate cancer Myocardial infarction Breast cancer Colorectal cancer Social History Smoking Status: Former smoker Tobacco Type: Cigarettes Age Started Using Tobacco: 15; Age Quit Using Tobacco: 49; packs per day: 1; Second Hand Exposure: No; Hx Alcohol Use: Yes Alcohol type: beer Alcohol Intake Frequency Comment: has a couple once a week Hx Substance Use: No Preferred Language: Swedish Communication Ability: Effective Visual Impairment: No Limitations Hearing Ability: Normal 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 Required: No Beliefs That Will Affect Care: None marital status: Current Living Situation: Personal Care Facility Current Living Situation Comment: recently moved from [facility] to [facility] current occupational status: retired current occupation: used to work in the [employer] at [employer] How many Children do You have: 2 Feels Safe at Home: Yes Childhood Exposure to Second-Hand Smoke: Yes Dental Care, Regularly: No Physical Activity Frequency: Does not Exercise Seatbelt Use: always Sunscreen Use: No Assistive Devices: Walker and Wheelchair Review of Systems Review of Systems: All systems reviewed & are unremarkable except as noted in HPI & below Physical Exam Physical Exam: Physical Exam: Constitutional: appearance nourished, healthy and normal Ears, Nose, Mouth and Throat: mucous membranes moist, no injection and skin normal, eyes normal Cardiovascular: irregular Respiratory: clear to auscultation (CTA) and no rales, rhonchi or wheeze Musculoskeletal: no peripheral edema and good distal pulses Skin: no stigmata of neurocutaneous disease noted and normal and intact Eyes: extraocular muscles intact (EOMI) and pupils equal, round and reactive to light (PERRL) NEUROLOGIC EXAMINATION: Mental status: Alert and interactive Oriented to full date and location Oriented to person Speech fluent with no evidence of aphasia Cranial Nerves smile eye brow raise symmetric Reflexes: Deep tendon reflexes were symmetrical and graded 2/5. down going toes Sensory: cool or light touch Coordination: finger to nose intact on right unable to on left Gait/Stance: Posture lying in bed did not test gait Motor: drift on left Strength: hand oxygen equipment aide on right 5/5, left 3/5, biceps triceps right 5/5, left 4/5, hip flex right 5/5 left 4/5 Results & Data ([facility]) Vital Signs (Past 12 Hours) Vital Signs Temp Pulse Pulse Resp BP BP Pulse Ox 11/07/21 08:00 36.5 C 85 18 144/75 H 92 11/07/21 07:15 75 11/07/21 02:28 36.4 C L 82 16 138/64 98 11/06/21 23:33 36.3 C L 88 20 128/73 100 11/06/21 23:20 99 H 11/06/21 23:19 90 Laboratory Results Abnormal lab results 11/06/21 11/06/21 11/07/21 Range/Units 12:40 12:40 06:57 RBC 3.35 L 3.24 L (4.7-6.1) M/uL Hgb 11.1 L 10.8 L (14.0-18.0) g/dL Hct 34.3 L 33.3 L (42-52) % MCV 102.4 H 102.8 H (80-100) fL RDW Std Deviation 68.7 H 69.3 H (36.4-46.3) fL RDW Coeff of Jairon 18.3 H 18.2 H (11.5-14.5) % MPV 11.7 H 11.1 H (7.4-10.4) fL Lymph # (Auto) 0.60 L (1.2-3.4) K/uL Prentiss # (Auto) 0.86 H (0.11-0.59) K/uL Immature Gran # (Auto) 0.08 H (0.00-0.02) K/uL Chloride (98-107) mmol/L BUN/Creatinine Ratio 9.3 L (10-20) Glucose 126 H (70-99) mg/dl Calcium (8.5-10.1) mg/dl Albumin 3.3 L (3.4-5.0) gm/dl 11/07/21 Range/Units 06:57 RBC (4.7-6.1) M/uL Hgb (14.0-18.0) g/dL Hct (42-52) % MCV (80-100) fL RDW Std Deviation (36.4-46.3) fL RDW Coeff of Jairon (11.5-14.5) % MPV (7.4-10.4) fL Lymph # (Auto) (1.2-3.4) K/uL Prentiss # (Auto) (0.11-0.59) K/uL Immature Gran # (Auto) (0.00-0.02) K/uL Chloride 112 H (98-107) mmol/L BUN/Creatinine Ratio (10-20) Glucose (70-99) mg/dl Calcium 7.8 L (8.5-10.1) mg/dl Albumin (3.4-5.0) gm/dl Diagnostic Findings CT head-No acute intracranial hemorrhage, no evidence of acute territorial infarction or other acute intracranial disease process. CTA head/neck-No acute intracranial hemorrhage, evidence of acute territorial infarction, or other acute intracranial disease process. No occlusion, hemodynamically significant stenosis, aneurysm, dissection, or arteriovenous malformation in the major intracranial arteries. No occlusion, hemodynamically significant stenosis, or dissection in the major cervical arteries. MRI brain-10 mm acute infarct of the right frontal lobe centrum semiovale. Punctate focus of increased diffusion-weighted signal within the periventricular right occipital lobe is likely artifactual. A tiny acute or subacute infarct could appear similarly. Age-related involutional changes with moderate chronic microvascular ischemic disease. TTE- no ASD, EF 60-65%
[2021-11-07] MEDS ORDERED: EUCERIN CR 120 GM JAR EXT PRN (15:17)
--- NOTE | 2021-11-07 18:11 | Hospitalist Progress Note ---
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 Per Neurology continue with current regimen of apixaban and plavix. Rosuvastatin. (2) Weakness of left upper extremity: Plan: 2/2 stroke above, PT/OT, SNF recommended. (3) Weakness of left lower extremity: Plan: 2/2 stroke above, PT/OT, SNF recommended. (4) Rash: Plan: Patient with diffuse rash that he reports present during previous hospitalization. Thought Eliquis may be cause and was discontinued a couple of weeks ago without change in rash. No derm provider currently available. Keep skin hydrated. Consider outpatient skin biopsy with path review. (5) Paroxysmal atrial fibrillation: Plan: Followed by [facility] in Aug 2021 where he was diagnosed with PAF and was started on amiodarone and Eliquis Eliquis was discontinued outpatient secondary to possible rash Current sinus rhythm -Will restart Eliquis as above -Continue amiodarone, metoprolol tartrate (6) Acute kidney injury superimposed on CKD: Plan: resolved to baseline, creat today is 1.1 Monitor renal functions, avoid nephrotoxic agents when possible (7) Chronic respiratory failure with hypoxia: Plan: 2/2 Asbestos, COPD On chronic 2-4 L Denies any increased shortness of breath, cough. -Continue oxygen, home inhalers (8) Hyperlipidemia: Plan: Previously was on simvastatin, has dropped off med list -Start rosuvastatin for secondary stroke prophylaxis (9) Obstructive sleep apnea: Plan: Noncompliant with CPAP (10) DVT prophylaxis: Plan: Eliquis DNR/DNI Dispo-cont hospital stay pending placement at SNF facility. Evelin Arroyo DO [facility] Hospitalist Admission and Anticipated Discharge Date Admission Date: November 06, 2021 Subjective 81 yo M presented with acute left hand weakness and left leg heaviness. Wheelchair transfer at baseline. MRI brain reveals evidence of an embolic stroke Patient notes some improvement in leg heaviness and was able to stand with PT today However, there is persistent hand weather anchor issues ongoing since yesterday Rash still present Denies Thompson Tolerating PO Review of Systems Review of Systems: Al systems were reviewed and negative except as indicated above. Physical Exam Physical Exam: CONSTITUTIONAL: WNWD, vitals as above, generally well- appearing, NAD EYES: normal conjunctivae, no scleral icterus, ENT: external ear and nose normal, MMM NECK: trachea midline, RESPIRATORY: clear to auscultation bilaterally, no crackles, rales or wheezes, normal respiratory effort CARDIOVASCULAR: regular rate and rhythm, S1 and 2 heard without murmurs, gallops or rubs, no JVD, no peripheral edema GASTROINTESTINAL: soft, nontender, ND, no guarding. MUSCULOSKELETAL: strength 5/5 throughout, except he cannot perform hand weather anchor with left hand, head is normocephalic and atraumatic SKIN: warm and dry, extensive morbilliform rash all over body including his feet, sparing palms and soles, sparing face and his back, too. NEUROLOGIC: CN 2-12 grossly intact, no sensory deficit, normal cognition, normal speech, no tremor PSYCHIATRIC: alert cooperative and oriented to person, place and time. Results & Data Results & Data ([facility]) Vital Signs (Past 12 Hours) Vital Signs Temp Pulse Pulse Resp BP BP Pulse Ox 11/07/21 16:00 36.7 C 82 18 126/65 91 11/07/21 15:06 76 11/07/21 08:00 36.5 C 85 18 144/75 H 92 11/07/21 07:15 75 Laboratory Results Short CBC 11/07/21 Range/Units 06:57 WBC 6.15 (4.8-10.8) K/uL Hgb 10.8 L (14.0-18.0) g/dL Hct 33.3 L (42-52) % Plt Count 140 (130-400) K/uL BMP 11/07/21 06:57 Sodium 141 Potassium 4.1 Chloride 112 H Carbon Dioxide 24 BUN 12 Creatinine 1.19 Glucose 94 Calcium 7.8 L Cardiac Enzymes 11/06/21 Range/Units 12:40 Troponin I 0.03 (0-0.04) ng/ml Medications Administered Current Inpatient Medications Acetaminophen (Acetaminophen 325 Mg Tab) 650 mg PO Q4H PRN PRN Reason: Pain or Fever Stop: 12/06/21 18:30 Albuterol (Albuterol Hfa 8 Gm Inhaler) 2 puffs INH Q6 PRN PRN Reason: Shortness Of Breath Or Wheezin Stop: 12/06/21 18:30 Amiodarone HCl (Amiodarone 200 Mg Tab) 200 mg PO QAM OMID Stop: 12/07/21 08:59 Last Admin: 11/07/21 08:17 Dose: 200 mg Documented by: Apixaban (Apixaban 5 Mg Tablet) 5 mg PO BID [facility] Stop: 12/06/21 20:59 Last Admin: 11/07/21 08:17 Dose: 5 mg Documented by: Clopidogrel Bisulfate (Clopidogrel Bisulfate 75 Mg Tab) 75 mg PO DAILY [facility] Stop: 12/07/21 08:59 Last Admin: 11/07/21 08:17 Dose: 75 mg Documented by: Fluticasone/Vilanterol (Fluticasone/Vilanterol 100/25mcg 14 Puffs/Inhaler) 1 puffs INH DAILY [facility] Stop: 12/07/21 08:59 Last Admin: 11/07/21 08:18 Dose: 1 puffs Documented by: Lansoprazole (Lansoprazole 30 Mg Soltab) 30 mg PO QAM [facility] Stop: 12/07/21 08:59 Last Admin: 11/07/21 08:17 Dose: 30 mg Documented by: Metoprolol Tartrate (Metoprolol Tartrate 25 Mg Tab) 25 mg PO BID [facility] Stop: 12/06/21 20:59 Last Admin: 11/07/21 08:17 Dose: 25 mg Documented by: Miscellaneous Information (Pharmacist Discharge Med Rec Consult) 1 ea N/A UD PRN PRN Reason: Consult Stop: 12/06/21 18:30 Multi-Ingredient Cream (Eucerin Cr 120 Gm Jar) 1 appln EXT DAILY PRN PRN Reason: Rash Stop: 12/07/21 15:16 Rosuvastatin Calcium (Rosuvastatin Calcium 20 Mg Tab) [facility] Stop: 12/07/21 08:59 Last Admin: 11/07/21 08:17 Dose: 20 mg Documented by: Umeclidinium Hemlock (Umeclidinium Hemlock 62.5mcg/Blister 7 Puffs/Inhaler) 1 puffs INH DAILY [facility] Stop: 12/07/21 08:59 Last Admin: 11/07/21 08:17 Dose: 1 puffs Documented by:
[2021-11-08] MEDS: METOPROLOL TARTRATE 25 MG TAB PO SCH (07:56)
[2021-11-08] MEDS: CLOPIDOGREL BISULFATE 75 MG TAB PO SCH (07:56)
[2021-11-08] MEDS: ROSUVASTATIN CALCIUM 20 MG TAB PO SCH (07:57)
[2021-11-08] MEDS: APIXABAN 5 MG TABLET PO SCH (07:57)
[2021-11-08] MEDS: LANSOPRAZOLE 30 MG SOLTAB PO SCH (07:57)
[2021-11-08] MEDS: UMECLIDINIUM BROMIDE 62.5MCG/BLISTER 7 PUFFS/INHALER INH SCH (07:58)
[2021-11-08] MEDS: AMIODARONE 200 MG TAB PO SCH (07:58)
[2021-11-08] MEDS: FLUTICASONE/VILANTEROL 100/25MCG 14 PUFFS/INHALER INH SCH (07:58)
[2021-11-08] MEDS ORDERED: STROKE PATIENT DISCHARGE STA (15:44)
--- NOTE | 2021-11-08 15:53 | Discharge Summary ---
Date of Service November 08, 2021 Admission HPI Per Admitting Provider Patient is 81 y/o M with PMH chronic hypoxic respiratory failure, COPD, asbestosis, on 2 to 4 L O2 at baseline, HTN, HLD, CKD III, MIGDALIA presented to ER with complaint of left-sided weakness. Patient states this morning around 5 AM he reached for phone and was unable to grasp or hold found secondary to left hand weakness. Patient reports at baseline uses electric wheelchair secondary to chronic shortness of breath with exertion. He states this morning he had left leg heaviness and when trying to stand to pivot into wheelchair was unable to bear weight on left leg. He reports around 2 AM staff brings him water and he felt at his baseline at that time. Denies headache, dizziness, vision changes, or right-sided weakness, paresthesias, chest pain, shortness of breath, facial drooping or speech changes. Denies having increased output to colostomy bag. Denies any increased SOB. Denies fever/chills, diaphoresis, N/V, hematochezia, syncope, neck pain, CP, palpitations, cough, sore throat, choking, otalgia, rhinorrhea, abdominal pain, extremity edema, urinary symptoms. Recent admission 09/14/2021-10/08/2021 for C. 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 He was treated with Vanco and Flagyl and transitioned to Dificid 200 mg and completed treatment. Dduring hospitalization developed A. fib RVR and subsequently converted to normal sinus rhythm. He was started on amiodarone and Eliquis. His home atenolol and verapamil was discontinued and metoprolol tartrate started. Also had KALE during hospitalization also that resolved. Patient was discharged on Keflex for incision erythema. Patient states had rash during hospitalization. It is reported patient's Eliquis was discontinued a couple of weeks ago secondary to possible cause of rash, however rash still present. Patient reports previously was taking aspirin however aspirin is not listed on his medication list from [facility]. Previously was on simvastatin however that is also on not on his home medication list. Principal Diagnosis CVA Weakness of left upper extremity Weakness of left lower extremity Rash Acute kidney injury superimposed on CKD Chronic respiratory failure with hypoxia 2/2 asbestos exposure and COPD Discharge Exam CONSTITUTIONAL: WNWD, vitals as above, generally well-appearing, NAD EYES: normal conjunctivae, no scleral icterus, ENT: external ear and nose normal, MMM NECK: trachea midline, RESPIRATORY: clear to auscultation bilaterally, no crackles, rales or wheezes, normal respiratory effort CARDIOVASCULAR: regular rate and rhythm, S1 and 2 heard without murmurs, gallops or rubs, no JVD, no peripheral edema GASTROINTESTINAL: soft, nontender, ND, no guarding. 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 NEUROLOGIC: CN 2-12 grossly intact, no sensory deficit, normal cognition, normal speech, no tremor PSYCHIATRIC: alert cooperative and oriented to person, place and time. Discharge Data Allergies Allergy/AdvReac Type Severity Reaction Status Date / Time diltiazem [From [facility]] Allergy Severe hives Verified 11/06/21 15:53 telmisartan Allergy Unknown Unknown Verified 11/06/21 15:53 Consultations 11/06/21 15:50 ED Decision to Admit Stat 11/06/21 17:41 Consult Neurology Routine 11/07/21 07:29 Consult Dermatology Routine Ordered Studies 11/06/21 12:16 CT head/brain wo con Stat 11/06/21 13:28 CT angio head w con Stat CT angio neck with con Stat 11/06/21 17:41 MR brain wo con Routine Hospital Course (1) CVA (cerebral vascular accident): likely embolic affecting right MCA and 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 Per Neurology continue with current regimen of apixaban and plavix. Rosuvastatin. (2) Weakness of left upper extremity: 2/2 stroke above, PT/OT, SNF recommended. (3) Weakness of left lower extremity: 2/2 stroke above, PT/OT, SNF recommended. (4) Rash: Patient with diffuse rash that he reports present during previous hospitalization. Thought Eliquis may be cause and was discontinued a couple of weeks ago without change in rash. No derm provider currently available. Keep skin hydrated. Consider outpatient skin biopsy with path review. (5) Paroxysmal atrial fibrillation: Followed by [facility] in Aug 2021 where he was diagnosed with PAF and was started on amiodarone and Eliquis Eliquis was discontinued outpatient secondary to possible rash Current sinus rhythm -Will restart Eliquis as above -Continue amiodarone, metoprolol tartrate (6) Acute kidney injury superimposed on CKD: resolved to baseline, creat today is 1.1 Monitor renal functions, avoid nephrotoxic agents when possible (7) Chronic respiratory failure with hypoxia: 2/2 Asbestos, COPD On chronic 2-4 L Denies any increased shortness of breath, cough. -Continue oxygen, home inhalers (8) Hyperlipidemia: Previously was on simvastatin, has dropped off med list -Start rosuvastatin for secondary stroke prophylaxis (9) Obstructive sleep apnea: Noncompliant with CPAP (10) DVT prophylaxis: Eliquis DNR/DNI Dispo-cont hospital stay pending placement at SNF facility. DO [facility] Discharge Plan Discharge Items Patient Disposition: Personal Retirement Reason For Visit: WEAKNESS Discharge Diagnosis: CVA Weakness of left upper extremity Weakness of left lower extremity Rash Acute kidney injury superimposed on CKD Chronic respiratory failure with hypoxia 2/2 asbestos exposure and COPD Condition on Discharge: Good Activity: Resume your previous activity Non-emergency contact: Primary Care Provider Call non-emergency contact if: you have any medication questions and your symptoms worsen Follow-up/Referrals: [facility] [Primary Care Provider] - Diet: Heart Healthy Addtl Attending Provider Instructions: Mr. Silverman, You have suffered a stroke in the right front part of your brain, which is responsible for your change in left hand and leg strength. It is strongly recommended that you restart apixaban, as this is though to have possibly come from your heart in the setting of paroxysmal atrial fibrillation (PAF). PAF is a new diagnosis for you last fall by [facility], and apixaban prevents strokes by keeping the blood thin. If you are off of this medication, your risk of stroke increases. Please also take Plavix and follow-up with [facility] Neurology in the office in 4-6 weeks. For your rash, it is strongly recommended that you get a referral to see a estimator lumber for accurate diagnosis and treatment. Please do not stop any more medications without seeing a duplication specialist first, if possible. It is recommended that you continue to undergo physical and occupational therapy to help you regain your strength after your stroke. This may be provided for you on an outpaitent basis at the personal [place] where you reside, and was ordered on discharge. It was a pleasure taking care of you! Please call if you have any questions or problems. You can reach a [facility]ist on duty at [facility] 24 hours a day by calling [phone]. Take care of yourself. Evelin Arroyo, DO [facility] Hospitalist Pending Studies at Discharge: No Stand-Alone Forms: My [facility] Skilled Items Patient informed of condition?: Yes DNR: Yes Discharge Level of Care: Other Communicable Disease: No Discharge Prognosis: Stable Lines: None Urinary Catheter: No Medications and DC Order Prescriptions: New Eliquis 5 mg Tablet 5 mg PO BID Qty: 60 RF: 0 rosuvastatin [Crestor] 20 mg Tablet 20 mg PO QAM Qty: 30 RF: 0 Continued clopidogrel 75 mg tablet 75 mg PO DAILY RF: 0 albuterol sulfate [Ventolin HFA] 90 mcg/actuation HFA aerosol inhaler 2 puff INHALATION Q6 PRN (Reason: Shortness Of Breath Or Wheezing) RF: 0 diphenhydramine HCl [Banophen] 50 mg Capsule 50 mg PO Q8 PRN (Reason: allergies) RF: 0 ondansetron 4 mg tablet,disintegrating 4 mg PO Q4 PRN (Reason: Nausea And Vomiting) RF: 0 Barrier Cream 1 applic topical QID RF: 0 amiodarone 200 mg Tablet 200 mg PO QAM Qty: 5 RF: 0 lansoprazole [Prevacid SoluTab] 30 mg Tablet,Disintegrat, Delay Rel 30 mg PO QAM Qty: 5 RF: 0 metoprolol tartrate 25 mg Tablet 25 mg PO BID Qty: 10 RF: 0 Spiriva with HandiHaler 18 mcg capsule, w/inhalation device See Rx Instructions .ROUTE .COMPLEX Qty: 5 RF: 3 Dulera 200-5 mcg/actuation HFA aerosol inhaler 2 puff inhalation BID Qty: 1 RF: 3 Discharge Orders: Discharge Order (Routine); Ordered 11/08/21 Ordered By: Evelin Arroyo Admission Data Admit Date/Time: 11/08/21 09:21 Attending Provider: Evelin Arroyo Admit Provider: Evelin Arroyo Primary Care Provider: Louis Dickinson,[facility] Other Providers: Evelin Arroyo ; Jermaine Zepeda ; Aakash Mccray
== END 2021-11-08 16:25 | disposition home or self-care (01) ==
LOC: 2N 12:07 → ED 12:07 → 2N 18:13

== ENCOUNTER 2021-11-22 18:29 | Inpatient (IN) ==
[2021-11-22] MEDS ORDERED: ALBUT/IPRATROP 3MG/0.5MG NEB 3 ML VIAL NEB STA (18:56)
[2021-11-22] MEDS ORDERED: methylPREDNISolone 125 MG/2 ML VIAL IV STA (18:56)
[2021-11-22 19:32] LABS: Hematocrit (blood only) 28.9 % (42-52); Hemoglobin 9.3 g/dL (14.0-18.0); Mean Corpuscular Hemoglobin 32.7 pg (25-34); Mean Corpuscular Hgb Conc 32.2 g/dL (32-36); Mean Corpuscular Volume 101.8 fL (80-100); Mean Platelet Volume 11.4 fL (7.4-10.4); Platelet Count 148 K/uL (130-400); RDW Coefficient of Variation 17.1 % (11.5-14.5); RDW Standard Deviation 64.7 fL (36.4-46.3); Red Blood Count 2.84 M/uL (4.7-6.1); White Blood Count 7.52 K/uL (4.8-10.8)
[2021-11-22 19:34] LABS: Oxygen Saturation VBG 82.8 %; pH VBG 7.38 (7.36-7.41)
[2021-11-22 19:50] LABS: Eosinophils # (auto) 0.02 K/uL (0-0.5); Eosinophils % (auto) 0.3 %; INR 1.2 (0.9-1.1); Immature Granulocytes # (auto) 0.05 K/uL (0.00-0.02); Immature Granulocytes % (auto) 0.7 %; Lymphocytes # (auto) 0.61 K/uL (1.2-3.4); Lymphocytes % (auto) 8.1 %; Monocytes # (auto) 1.12 K/uL (0.11-0.59); Monocytes % (auto) 14.9 %; Neutrophils # (auto) 5.72 K/uL (1.4-6.5); Partial Thromboplastin Ratio 1.3; Partial Thromboplastin Time 35.1 Seconds (21.0-31.0); Polychromasia 1+; Prothrombin Time 12.2 Seconds (9.0-12.0)
[2021-11-22 19:53] LABS: Troponin I 0.03 ng/ml (0-0.04)
--- NOTE | 2021-11-22 20:09 | XRay Report ---
XR chest 1V portable CLINICAL HISTORY: sob TECHNIQUE: Single frontal radiograph of the chest was obtained. Comparison: Comparison is made to chest one view 09/14/2021 FINDINGS: Orthopedic hardware is seen over the left humerus. The cardiomediastinal silhouette is obscured. Mult ifocal airspace opacities are seen. Small bilateral pleural effusions are seen. IMPRESSION: Multifocal airspace opacities may represent atelectasis, pneumonia, and/or aspiration. Small bilatera l pleural effusions are seen. ACT 112: Negative or not required by law. Electronically signed by: Kamran Modi M.D. 11/22/2021 8:07 PM
[2021-11-22 20:17] LABS: Albumin Level 3.1 gm/dl (3.4-5.0); Bilirubin Direct 0.1 mg/dl (0-0.2); Bilirubin,Total 0.6 mg/dl (0.2-1.0); Magnesium 1.9 mg/dl (1.7-2.4); Total Protein 6.8 gm/dl (6.0-8.3)
[2021-11-22 20:19] LABS: Influenza A virus by PCR Negative (Neg); Influenza B virus by PCR Negative (Neg); RSV by PCR Negative (Neg); SARS CoV2 RNA(COVID-19) InHosp NEGATIVE (Negative)
--- NOTE | 2021-11-22 20:28 | Emergency Department Note ---
History of Present Illness General Chief Complaint: Shortness of Breath/Dyspnea Stated Complaint: SOB Time Seen by Provider: 11/22/21 18:48 History of Present Illness Provider Complaint: shortness of breath Onset (ago): day(s) (1) Severity: severe Consistency/Duration: + progressively worsening Relieved By: + nothing Exacerbated By: + exertion and + coughing Context: no recent illness, no choking/aspiration, no medication noncompliance, no recent travel or no trauma/injury Known history of: COPD and other (asbestos) Associated symptoms: + cough and + chest congestion; no pain with inspiration, no fever, no sputum production, no orthopnea, no lower extremity pain, no polyuria, no polydipsia, no paresthesias, no palpitations, no carpopedal spasm, no hemoptysis, no diaphoresis, no nausea/vomiting, no syncope, no abdominal pain or no rash Treatment prior to arrival: oxygen HPI Narrative: Patient usually wears 4 L of oxygen, on his normal 4 L of oxygen EMS reports the patient was 65%. Patient increased to 10 L which improved his oxygen saturation to 90%. Home Medications Medication Instructions Recorded Confirmed Type amiodarone 200 mg tablet 200 mg PO QAM #5 tab 10/08/21 11/22/21 Rx lansoprazole 30 mg delayed 30 mg PO QAM #5 tab 10/08/21 11/22/21 Rx release,disintegrating tablet (Prevacid SoluTab) metoprolol tartrate 25 mg tablet 25 mg PO BID #10 tab 10/08/21 11/22/21 Rx mometasone-formoterol HFA 200 2 puff INHALATION BID #1 inhaler 10/08/21 11/22/21 Rx mcg-5 mcg/actuation aerosol inhaler (Dulera) tiotropium bromide 18 mcg capsule See Rx Instructions .ROUTE 10/08/21 11/22/21 Rx with inhalation device (Spiriva .COMPLEX #5 capsule with HandiHaler) Barrier Cream 1 applic TOPICAL QID 11/06/21 11/22/21 History albuterol sulfate 90 mcg/actuation 2 puff INHALATION Q6 PRN 11/06/21 11/22/21 History aerosol inhaler (Ventolin HFA) clopidogrel 75 mg tablet 75 mg PO DAILY 11/06/21 11/22/21 History diphenhydramine HCl 50 mg capsule 50 mg PO Q8 PRN 11/06/21 11/22/21 History (Banophen) ondansetron 4 mg disintegrating 4 mg PO Q4 PRN 11/06/21 11/22/21 History tablet rosuvastatin 20 mg tablet (Crestor) 20 mg PO QAM #30 tab 11/08/21 11/22/21 Rx apixaban 5 mg tablet (Eliquis) 5 mg PO BID 11/22/21 11/22/21 History hydrocortisone 1 % topical cream 1 applic TOPICAL BID 11/22/21 11/22/21 History tramadol 50 mg tablet 50 mg PO Q6 PRN 11/22/21 11/22/21 History Allergies Allergy/AdvReac Type Severity Reaction Status Date / Time diltiazem [From Cardizem] Allergy Severe hives Verified 11/22/21 20:35 telmisartan Allergy Unknown Unknown Verified 11/22/21 20:35 Past Med/Surg History Medical History Abdominal pain Anemia Asbestosis Benign prostatic disease CAD (coronary artery disease) Chronic kidney disease Chronic obstructive pulmonary disease Chronic respiratory failure with hypoxia Dehydration Emphysematous bleb Hyperlipidemia Hypertension Impaired fasting glucose Obstructive sleep apnea Paroxysmal atrial fibrillation Pleural effusion on right Pleural plaque with presence of asbestos Pulmonary nodule Surgical History H/O colonoscopy History of cataract surgery History of colectomy 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 Dr. Chau History of shoulder surgery right shoulder surgery Family History Father Emphysema, unspecified Brother Cancer Mother Glaucoma Cancer skin Sister Renal failure Denies family history of Ovarian cancer Prostate cancer Myocardial infarction Breast cancer Colorectal cancer Social History Smoking Status: Former smoker Tobacco Type: Cigarettes Age Started Using Tobacco: 15; Age Quit Using Tobacco: 49; packs per day: 1; Second Hand Exposure: No; Hx Alcohol Use: Yes Alcohol type: beer Alcohol Intake Frequency Comment: has a couple once a week Hx Substance Use: No Preferred Language: Divehi Communication Ability: Effective Visual Impairment: No Limitations Hearing Ability: Normal Director Inbound Sales Required: No Beliefs That Will Affect Care: None marital status: Current Living Situation: Personal Care Facility Current Living Situation Comment: recently moved from [facility] to [facility] current occupational status: retired 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 [employer] How many Children do You have: 2 Feels Safe at Home: Yes Childhood Exposure to Second-Hand Smoke: Yes Dental Care, Regularly: No Physical Activity Frequency: Does not Exercise Seatbelt Use: always Sunscreen Use: No Assistive Devices: Oxygen - Continuous Review of Systems A total of 10 systems reviewed and were otherwise negative Physical Exam Vital Signs: Vital Signs - 24 hr 11/22/21 18:37 11/22/21 18:44 11/22/21 18:49 Pulse Rate 102 H Pulse Rate [Apical ] Pulse Rhythm [Apic al] Pulse Strength [Ap ical] Respiratory Rate 20 Respiratory Effort / Characteristics Respiratory Depth Respiratory Patter n Blood Pressure 137/72 Blood Pressure [Le ft Arm] Blood Pressure Sherry n 93 Blood Pressure Sherry n [Left Arm] Blood Pressure Pos ition [Left Arm] Pulse Oximetry 99 99 86 L Oxygen Delivery Me thod Non-rebreather Non-rebreather Nasal Cannula Oxygen Flow Rate 10 10 4 Fraction of Inspir ed Oxygen SaO2/FiO2 Ratio Sepsis Recent Feve r Within 48 Hours No Sepsis New/Unexpla ined Change in Men michelle Status N/A Sepsis Action Take n by Nursing No Action Required Oxygen Flow Rate - Titration Pulse Oximetry Pos t Tiitration 11/22/21 18:50 11/22/21 19:09 11/22/21 19:37 Pulse Rate 88 Pulse Rate [Apical ] 88 Pulse Rhythm [Apic al] Pulse Strength [Ap ical] Respiratory Rate 24 Respiratory Effort / Characteristics Non-Labored Sponta neous Non-Labored Respiratory Depth Normal Shallow Respiratory Patter n Regular Regular Blood Pressure Blood Pressure [Le ft Arm] Blood Pressure Sherry n Blood Pressure Sherry n [Left Arm] Blood Pressure Pos ition [Left Arm] Pulse Oximetry 86 L 99 Oxygen Delivery Me thod Nasal Cannula BiPAP BiPAP Oxygen Flow Rate 6 Fraction of Inspir ed Oxygen 50 40 SaO2/FiO2 Ratio Sepsis Recent Feve r Within 48 Hours Sepsis New/Unexpla ined Change in Men michelle Status Sepsis Action Take n by Nursing Oxygen Flow Rate - Titration 6 Pulse Oximetry Pos t Tiitration 88 L 11/22/21 20:29 11/22/21 20:30 11/22/21 20:59 Pulse Rate Pulse Rate [Apical ] 85 79 Pulse Rhythm [Apic al] Regular Regular Pulse Strength [Ap ical] Normal Normal Respiratory Rate 16 22 Respiratory Effort / Characteristics Non-Labored Non-Labored Respiratory Depth Normal Normal Respiratory Patter n Blood Pressure Blood Pressure [Le ft Arm] 127/65 127/61 Blood Pressure Sherry n Blood Pressure Sherry n [Left Arm] 85 83 Blood Pressure Pos ition [Left Arm] Sitting Lying Pulse Oximetry 96 97 95 Oxygen Delivery Me thod BiPAP BiPAP BiPAP Oxygen Flow Rate Fraction of Inspir ed Oxygen 40 40 SaO2/FiO2 Ratio 242 237 Sepsis Recent Feve r Within 48 Hours Sepsis New/Unexpla ined Change in Men michelle Status Sepsis Action Take n by Nursing Oxygen Flow Rate - Titration Pulse Oximetry Pos t Tiitration Physical Exam: Physical Exam HENT: Exam performed. - Head: Normocephalic and atraumatic. - Right Ear: External ear normal. No mastoid tenderness. - Left Ear: External ear normal. No mastoid tenderness. - Mouth/Throat: The oropharynx is clear and moist. No trismus in the jaw. No dental abscesses or uvula swelling. No oropharyngeal exudate or tonsillar abscesses. EYES: Conjunctivae and EOM are normal. Pupils are equal, round, and reactive to light. Right eye exhibits no discharge. Left eye exhibits no discharge. No scleral icterus. NECK: Normal range of motion. Neck supple. No JVD present. No spinous process te nderness present. No carotid bruit present. No rigidity. No tracheal deviation and normal range of motion present. No Brudzinski's sign and no Kernig's sign noted. CV: Normal rate, regular rhythm, normal heart sounds and intact distal pulses. There is no peripheral edema. Palpable radial pulses bue. PULM/CHEST: Tachypneic. Expiratory wheezes bilaterally and mild inspiratory rales at bases. ABD: The abdomen is soft. Bowel sounds are normal. He has no distension. No mass is present. There is no tenderness. There is no rebound, no guarding, no Stevens's sign and no tenderness at McBurney's point. Rovsig negative. MUSC/SKEL: Normal range of motion. There is no peripheral edema, tenderness or deformity. LYMPH: No cervical adenopathy. NEURO: He is alert and oriented to person, place, and time. He has normal strength. No cranial nerve deficit or sensory deficit. Coordination and gait normal. GCS eye subscore is 4. GCS verbal subscore is 5. GCS motor subscore is 6. Cerebellar tests wnl. SKIN: Skin is warm and dry. He is not diaphoretic. PSYCH: He has a normal mood and affect. Behavior is normal. Judgment and thought content normal. Course Course 1847: The patient was evaluated in room B3. A complete history and physical exam was performed Cardiac monitoring: An order was placed for continuous cardiac monitoring. The monitor shows a rate of 90 with sinus rhythm Patient was hypoxic at 10L nonrebreather. Patient was placed on BiPAP. Duo nebs ordered. Solu-Medrol ordered. 2057: Patient's vital signs are stable on BiPAP. Patient's work of breathing is improved he is no longer tachypneic. Labs are within normal limits with a mildly elevated proBNP of 374. Chest x-ray shows bilateral infiltrates. Patient will be treated with empiric antibiotics vancomycin and cefepime. [facility]izarro notified. Administered Medications Discontinued Medications Albuterol (Albut/Ipratrop 3mg/0.5mg Neb 3 Ml Vial) 3 ml NEB NOW STA; Protocol Stop: 11/22/21 18:57 Last Admin: 11/22/21 19:09 Dose: 3 ml Documented by: [id number] Methylprednisolone (Methylprednisolone 125 Mg/2 Ml Vial) 125 mg IV NOW STA Stop: 11/22/21 18:57 Last Admin: 11/22/21 19:32 Dose: 125 mg Documented by: [id number] Medical Decision Making Laboratory Data Result diagrams: 11/22/21 19:15 11/22/21 19:15 Lab Results 11/22/21 11/22/21 11/22/21 Range/Units 19:15 19:15 19:15 WBC 7.52 (4.8-10.8) K/uL RBC 2.84 L (4.7-6.1) M/uL Hgb 9.3 L (14.0-18.0) g/dL Hct 28.9 L (42-52) % MCV 101.8 H (80-100) fL MCH 32.7 (25-34) pg MCHC 32.2 (32-36) g/dL RDW Std Deviation 64.7 H (36.4-46.3) fL RDW Coeff of Jairon 17.1 H (11.5-14.5) % Plt Count 148 (130-400) K/uL MPV 11.4 H (7.4-10.4) fL Immature Gran % (Auto) 0.7 % Neut % (Auto) 76.0 % Lymph % (Auto) 8.1 % [place] % (Auto) 14.9 % Eos % (Auto) 0.3 % Baso % (Auto) 0.0 % Neut # (Auto) 5.72 (1.4-6.5) K/uL Lymph # (Auto) 0.61 L (1.2-3.4) K/uL [place] # (Auto) 1.12 H (0.11-0.59) K/uL Eos # (Auto) 0.02 (0-0.5) K/uL Baso # (Auto) 0.00 (0-0.2) K/uL Immature Gran # (Auto) 0.05 H (0.00-0.02) K/uL Polychromasia 1+ PT (9.0-12.0) Seconds INR (0.9-1.1) APTT (21.0-31.0) Seconds PTT Ratio VBG pH (7.36-7.41) VBG pCO2 (38-50) mmHg VBG pO2 mmHg VBG HCO3 mmol/L VBG O2 Saturation % VBG Base Excess mEq/L Barometric Pressure mm/Hg Sodium (136-145) mmol/L Potassium (3.5-5.1) mmol/L Chloride (98-107) mmol/L Carbon Dioxide (21-32) mmol/L Anion Gap (3-11) BUN (6-23) mg/dl Creatinine (0.6-1.4) mg/dl Est Cr Clr Drug Dosing ml/min Est GFR ( Amer) ml/min Est GFR (Non-Af Amer) ml/min BUN/Creatinine Ratio (10-20) Glucose (70-99(Fasting)) mg/dl Lactate 1.3 (0.4-2.0) mmol/L Calcium (8.5-10.1) mg/dl Magnesium (1.7-2.4) mg/dl Total Bilirubin (0.2-1.0) mg/dl Direct Bilirubin (0-0.2) mg/dl AST (13-39) U/L ALT (7-52) U/L Alkaline Phosphatase (34-104) U/L Troponin I (0-0.04) ng/ml B-Natriuretic Peptide 374 H (0-100) pg/ml Total Protein (6.0-8.3) gm/dl Albumin (3.4-5.0) gm/dl Lipase (11-82) U/L SARS-CoV-2 (PCR) (Negative) Influenza Type A (PCR) (Neg) Influenza Type B (PCR) (Neg) RSV (RT-PCR) (Neg) 11/22/21 11/22/21 11/22/21 Range/Units 19:15 19:15 19:15 WBC (4.8-10.8) K/uL RBC (4.7-6.1) M/uL Hgb (14.0-18.0) g/dL Hct (42-52) % MCV (80-100) fL MCH (25-34) pg MCHC (32-36) g/dL RDW Std Deviation (36.4-46.3) fL RDW Coeff of Jairon (11.5-14.5) % Plt Count (130-400) K/uL MPV (7.4-10.4) fL Immature Gran % (Auto) % Neut % (Auto) % Lymph % (Auto) % [place] % (Auto) % Eos % (Auto) % Baso % (Auto) % Neut # (Auto) (1.4-6.5) K/uL Lymph # (Auto) (1.2-3.4) K/uL [place] # (Auto) (0.11-0.59) K/uL Eos # (Auto) (0-0.5) K/uL Baso # (Auto) (0-0.2) K/uL Immature Gran # (Auto) (0.00-0.02) K/uL Polychromasia PT 12.2 H (9.0-12.0) Seconds INR 1.2 H (0.9-1.1) APTT 35.1 H (21.0-31.0) Seconds PTT Ratio 1.3 VBG pH 7.38 (7.36-7.41) VBG pCO2 46 (38-50) mmHg VBG pO2 51 mmHg VBG HCO3 26 mmol/L VBG O2 Saturation 82.8 % VBG Base Excess 1.0 mEq/L Barometric Pressure 731.9 mm/Hg Sodium (136-145) mmol/L Potassium (3.5-5.1) mmol/L Chloride (98-107) mmol/L Carbon Dioxide (21-32) mmol/L Anion Gap (3-11) BUN (6-23) mg/dl Creatinine (0.6-1.4) mg/dl Est Cr Clr Drug Dosing ml/min Est GFR ( Amer) ml/min Est GFR (Non-Af Amer) ml/min BUN/Creatinine Ratio (10-20) Glucose (70-99(Fasting)) mg/dl Lactate (0.4-2.0) mmol/L Calcium (8.5-10.1) mg/dl Magnesium 1.9 (1.7-2.4) mg/dl Total Bilirubin 0.6 (0.2-1.0) mg/dl Direct Bilirubin 0.1 (0-0.2) mg/dl AST 18 (13-39) U/L ALT 14 (7-52) U/L Alkaline Phosphatase 101 (34-104) U/L Troponin I 0.03 (0-0.04) ng/ml B-Natriuretic Peptide (0-100) pg/ml Total Protein 6.8 (6.0-8.3) gm/dl Albumin 3.1 L (3.4-5.0) gm/dl Lipase 5 L (11-82) U/L SARS-CoV-2 (PCR) (Negative) Influenza Type A (PCR) (Neg) Influenza Type B (PCR) (Neg) RSV (RT-PCR) (Neg) 11/22/21 11/22/21 Range/Units 19:15 19:24 WBC (4.8-10.8) K/uL RBC (4.7-6.1) M/uL Hgb (14.0-18.0) g/dL Hct (42-52) % MCV (80-100) fL MCH (25-34) pg MCHC (32-36) g/dL RDW Std Deviation (36.4-46.3) fL RDW Coeff of Jairon (11.5-14.5) % Plt Count (130-400) K/uL MPV (7.4-10.4) fL Immature Gran % (Auto) % Neut % (Auto) % Lymph % (Auto) % [place] % (Auto) % Eos % (Auto) % Baso % (Auto) % Neut # (Auto) (1.4-6.5) K/uL Lymph # (Auto) (1.2-3.4) K/uL [place] # (Auto) (0.11-0.59) K/uL Eos # (Auto) (0-0.5) K/uL Baso # (Auto) (0-0.2) K/uL Immature Gran # (Auto) (0.00-0.02) K/uL Polychromasia PT (9.0-12.0) Seconds INR (0.9-1.1) APTT (21.0-31.0) Seconds PTT Ratio VBG pH (7.36-7.41) VBG pCO2 (38-50) mmHg VBG pO2 mmHg VBG HCO3 mmol/L VBG O2 Saturation % VBG Base Excess mEq/L Barometric Pressure mm/Hg Sodium 136 (136-145) mmol/L Potassium 4.1 (3.5-5.1) mmol/L Chloride 103 (98-107) mmol/L Carbon Dioxide 26 (21-32) mmol/L Anion Gap 7 (3-11) BUN 12 (6-23) mg/dl Creatinine 1.20 (0.6-1.4) mg/dl Est Cr Clr Drug Dosing 48.9 ml/min Est GFR ( Amer) 64.9 ml/min Est GFR (Non-Af Amer) 56.0 ml/min BUN/Creatinine Ratio 10.0 (10-20) Glucose 164 H (70-99(Fasting)) mg/dl Lactate (0.4-2.0) mmol/L Calcium 8.5 (8.5-10.1) mg/dl Magnesium (1.7-2.4) mg/dl Total Bilirubin (0.2-1.0) mg/dl Direct Bilirubin (0-0.2) mg/dl AST (13-39) U/L ALT (7-52) U/L Alkaline Phosphatase (34-104) U/L Troponin I (0-0.04) ng/ml B-Natriuretic Peptide (0-100) pg/ml Total Protein (6.0-8.3) gm/dl Albumin (3.4-5.0) gm/dl Lipase (11-82) U/L SARS-CoV-2 (PCR) NEGATIVE (Negative) Influenza Type A (PCR) Negative (Neg) Influenza Type B (PCR) Negative (Neg) RSV (RT-PCR) Negative (Neg) Imaging Data Radiologist's Impression: Chest X-Ray 11/22/21 18:57 XR chest 1V portable CLINICAL HISTORY: sob TECHNIQUE: Single frontal radiograph of the chest was obtained. Comparison: Comparison is made to chest one view 09/14/2021 FINDINGS: Orthopedic hardware is seen over the left humerus. The cardiomediastinal silhouette is obscured. Multifocal airspace opacities are seen. Small bilateral pleural effusions are seen. IMPRESSION: Multifocal airspace opacities may represent atelectasis, pneumonia, and/or aspiration. Small bilateral pleural effusions are seen. ACT 112: Negative or not required by law. Electronically signed by: Kamran Modi M.D. 11/22/2021 8:07 PM ECG Data Interpretation: Sinus rhythm with rate 96. SC 204 QRS [address] elevation or ST depression. No significant change from the EKG done on November 06, 2021 [facility] Narrative 1848: The patient was evaluated in room B3. A complete history and physical exam was performed Cardiac monitoring: An order was placed for continuous cardiac monitoring. The monitor shows a rate of 90 with sinus rhythm Patient was hypoxic at 10L nonrebreather. Patient was placed on BiPAP. Duo nebs ordered. Solu-Medrol ordered. 2057: Patient's vital signs are stable on BiPAP. Patient's work of breathing is improved he is no longer tachypneic. Labs are within normal limits with a mildly elevated proBNP of 374. Chest x-ray shows bilateral infiltrates. Patient will be treated with empiric antibiotics vancomycin and cefepime. [facility] Pizarro notified. Impression & Plan Hypoxia, COPD (chronic obstructive pulmonary disease), Asbestosis, Pneumonia Critical Care Time Critical Care Time: Yes Total Critical Care Time: 60 I have personally spent greater than 60 minutes of critical care time in the direct management of this patient. This includes bedside care, interpretation o f diagnostic studies, and testing, discussion with consultants, patient, and family members, and other required patient management activities. This 60 minutes is in excess of all separately billable procedures. Discharge Plan Visit Data Chief Complaint: Shortness of Breath/Dyspnea Stated Complaint: SOB ED Provider: Adrian Basurto Discharge Problem: Hypoxia, COPD (chronic obstructive pulmonary disease), Asbestosis, Pneumonia Patient Disposition: Admitted As Inpatient Forms Stand Alone Forms: [facility] Prescriptions Prescriptions: No Action clopidogrel 75 mg tablet 75 mg PO DAILY RF: 0 albuterol sulfate [Ventolin HFA] 90 mcg/actuation HFA aerosol inhaler 2 puff INHALATION Q6 PRN (Reason: Shortness Of Breath Or Wheezing) RF: 0 diphenhydramine HCl [Banophen] 50 mg Capsule 50 mg PO Q8 PRN (Reason: allergies) RF: 0 ondansetron 4 mg tablet,disintegrating 4 mg PO Q4 PRN (Reason: Nausea And Vomiting) RF: 0 Barrier Cream 1 applic topical QID RF: 0 rosuvastatin [Crestor] 20 mg Tablet 20 mg PO QAM Qty: 30 RF: 0 amiodarone 200 mg Tablet 200 mg PO QAM Qty: 5 RF: 0 lansoprazole [Prevacid SoluTab] 30 mg Tablet,Disintegrat, Delay Rel 30 mg PO QAM Qty: 5 RF: 0 metoprolol tartrate 25 mg Tablet 25 mg PO BID Qty: 10 RF: 0 Spiriva with HandiHaler 18 mcg capsule, w/inhalation device See Rx Instructions .ROUTE .COMPLEX Qty: 5 RF: 3 Dulera 200-5 mcg/actuation HFA aerosol inhaler 2 puff inhalation BID Qty: 1 RF: 3 tramadol 50 mg tablet 50 mg PO Q6 PRN (Reason: Pain) RF: 0 hydrocortisone 1 % Cream 1 applic TOPICAL BID RF: 0 Eliquis 5 mg tablet 5 mg PO BID RF: 0 [facility] -
[2021-11-22] MEDS ORDERED: CEFEPIME 2,000 MG/20 ML VIAL IV STA (20:46)
[2021-11-22 20:51] LABS: Calcium 8.5 mg/dl (8.5-10.1); Creatinine Clr Calc Pharmacy 48.9 ml/min; Est GFR (African American) 64.9 ml/min; Potassium 4.1 mmol/L (3.5-5.1)
[2021-11-22] MEDS ORDERED: FUROSEMIDE INJ 20 MG/2 ML VIAL IV ONE (20:59)
[2021-11-22] MEDS ORDERED: PIPERACILL/TAZOBAC CONSULT ACTIVE PRN (20:59)
[2021-11-22] MEDS ORDERED: VANCOMYCIN CONSULT ACTIVE PRN (21:00)
[2021-11-22] MEDS ORDERED: VANCOMYCIN HCL 1,750 MG in SODIUM CHLORIDE 0.9% 500 ML IV ONE (21:00)
[2021-11-22] MEDS ORDERED: PIPERACILLIN/TAZOBACTAM 4.5 GM in DEXTROSE 5% 100 ML IV ONE (21:15)
[2021-11-22] MEDS ORDERED: MAGNESIUM SULFATE / D5W 1 GM/100 ML BAG IV ONE (21:30)
[2021-11-22] MEDS ORDERED: PIPERACILLIN/TAZOBACTAM 4.5 GM/120 ML BAG IV ONE (21:30)
[2021-11-22] MEDS ORDERED: INSULIN GLARGINE SOLOSTAR 100 UNITS/ML 3 ML PEN SC STA (21:32)
--- NOTE | 2021-11-22 21:33 | History & Physical Report ---
Date of Service November 22, 2021 Assessment & Plan (1) Respiratory failure, acute and chronic: Plan: hx chronic respiratory failure secondary to COPD/asbestosis on home O2 Secondary to COPD exacerbation from HCAP, pulmonary congestion possibly contributory No overt sepsis for now hx CAD as per records PAF, patient NSR on Eliquis history embolic CVA hypertension, slightly elevated hyperlipidemia on statin Rx DM2 diet-controlled, new diagnosis from recent admission hemoglobin A1c of 6.02 September 2021 chronic anemia, hemoglobin at baseline past tobacco abuse Medical telemetry Supplemental O2 Wean off BiPAP Doxycycline, Zosyn Nebs RTC, prednisone course Lasix 1 dose Pulmonary consult if without improvement Basal insulin, ISS BG goal 1 10-1 40, carb count coverage DVT prophylaxis. Eliquis DNR Text document was generated using [employer] voice recognition software. It may contain grammatical or spelling errors. Kindly contact undersigned for clarification of any documentation item in question. History of Present Illness Chief Complaint: Shortness of breath, worsening cough Primary Care Provider: [facility], [facility] History obtained from patient, family, and records. Medical history significant for chronic respiratory failure secondary to COPD/asbestosis on home O2, CAD as per records, PAF on Eliquis, history CVA, hypertension, hyperlipidemia, DM2 diet-controlled, hyperlipidemia, chronic anemia (baseline hemoglobin 9-10), past tobacco abuse Recent confinement 2 weeks ago for embolic CVA. Few days history of junky cough symptoms without chest pain, S OB concerns. Patient denies aspiration. Patient unsure about recent sick contacts given personal jail residence. Patient has completed COVID-19 vaccination. Today, patient had sudden increase in shortness of breath especially on exertion. Patient denies fluid retention. Unsure about weight gain as he does not do daily weights at facility. Increase in usual O2 requirement from 3 L per nasal cannula to 6 L. O2 sats 60s upon EMS arrival. Patient placed on 10 L nonrebreather mask. BiPAP placed upon arrival at the ER. Solu-Medrol and neb treatment subsequently administered. Patient currently feeling much better. 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 Allergies Allergy/AdvReac Type Severity Reaction Status Date / Time diltiazem [From Cardizem] Allergy Severe hives Verified 11/22/21 20:35 telmisartan Allergy Unknown Unknown Verified 11/22/21 20:35 Home Medications Medication Instructions Recorded Confirmed Type amiodarone 200 mg tablet 200 mg PO QAM #5 tab 10/08/21 11/22/21 Rx lansoprazole 30 mg delayed 30 mg PO QAM #5 tab 10/08/21 11/22/21 Rx release,disintegrating tablet (Prevacid SoluTab) metoprolol tartrate 25 mg tablet 25 mg PO BID #10 tab 10/08/21 11/22/21 Rx mometasone-formoterol HFA 200 2 puff INHALATION BID #1 inhaler 10/08/21 11/22/21 Rx mcg-5 mcg/actuation aerosol inhaler (Dulera) tiotropium bromide 18 mcg capsule See Rx Instructions .ROUTE 10/08/21 11/22/21 Rx with inhalation device (Spiriva .COMPLEX #5 capsule with HandiHaler) Barrier Cream 1 applic TOPICAL QID 11/06/21 11/22/21 History albuterol sulfate 90 mcg/actuation 2 puff INHALATION Q6 PRN 11/06/21 11/22/21 History aerosol inhaler (Ventolin HFA) clopidogrel 75 mg tablet 75 mg PO DAILY 11/06/21 11/22/21 History diphenhydramine HCl 50 mg capsule 50 mg PO Q8 PRN 11/06/21 11/22/21 History (Banophen) ondansetron 4 mg disintegrating 4 mg PO Q4 PRN 11/06/21 11/22/21 History tablet rosuvastatin 20 mg tablet (Crestor) 20 mg PO QAM #30 tab 11/08/21 11/22/21 Rx apixaban 5 mg tablet (Eliquis) 5 mg PO BID 11/22/21 11/22/21 History hydrocortisone 1 % topical cream 1 applic TOPICAL BID 11/22/21 11/22/21 History tramadol 50 mg tablet 50 mg PO Q6 PRN 11/22/21 11/22/21 History Past Med/Surg History Medical History Abdominal pain Anemia Asbestosis Benign prostatic disease CAD (coronary artery disease) Chronic kidney disease Chronic obstructive pulmonary disease Chronic respiratory failure with hypoxia Dehydration Emphysematous bleb Hyperlipidemia Hypertension Impaired fasting glucose Obstructive sleep apnea Paroxysmal atrial fibrillation Pleural effusion on right Pleural plaque with presence of asbestos Pulmonary nodule Surgical History H/O colonoscopy History of cataract surgery History of colectomy 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 Dr. Chau History of shoulder surgery right shoulder surgery Family History Father Emphysema, unspecified Brother Cancer Mother Glaucoma Cancer skin Sister Renal failure Denies family history of Ovarian cancer Prostate cancer Myocardial infarction Breast cancer Colorectal cancer Social History Smoking Status: Former smoker Tobacco Type: Cigarettes Age Started Using Tobacco: 15; Age Quit Using Tobacco: 49; packs per day: 1; Second Hand Exposure: No; Hx Alcohol Use: Yes Alcohol type: beer Alcohol Intake Frequency Comment: has a couple once a week Hx Substance Use: No Preferred Language: Maltese Communication Ability: Effective Visual Impairment: No Limitations Hearing Ability: Normal Gas Operations Analyst Required: No Beliefs That Will Affect Care: None marital status: Current Living Situation: Personal Care Facility Current Living Situation Comment: recently moved from [facility] to [facility] current occupational status: retired 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 [employer] How many Children do You have: 2 Feels Safe at Home: Yes Childhood Exposure to Second-Hand Smoke: Yes Dental Care, Regularly: No Physical Activity Frequency: Does not Exercise Seatbelt Use: always Sunscreen Use: No Assistive Devices: Oxygen - Continuous Review of Systems Review of Systems: As per HPI, all 10 systems reviewed, all other ROS negative Physical Exam Physical Exam: GENERAL: Comfortable, pleasant, no respiratory distress SKIN: Pallor, warm HEENT: Pale palpebral conjunctivae, no ptosis, dry buccal mucosa, nasal cannula in place NECK : Supple, no tenderness CHEST : Decreased breath sounds, no tenderness HEART : RRR, no obvious murmurs ABDOMEN: Some distention, ostomy in place, nontender EXTREMITIES : No LE swelling/tenderness, no other conspicuous deformities noted NEUROLOGIC : Coherent, no facial asymmetry, gait and stance not assessed Results & Data Results & Data ([facility]) Vital Signs (Past 12 Hours) Vital Signs Pulse Pulse Resp BP BP Pulse Ox 11/22/21 20:59 79 22 127/61 95 11/22/21 20:30 85 16 127/65 97 11/22/21 20:29 96 11/22/21 19:09 88 88 24 99 11/22/21 18:50 86 L 11/22/21 18:49 86 L 11/22/21 18:44 99 11/22/21 18:37 102 H 20 137/72 99 Laboratory Results Laboratory Results WBC 7.52 K/uL (4.8-10.8) 11/22/21 19:15 RBC 2.84 M/uL (4.7-6.1) L 11/22/21 19:15 Hgb 9.3 g/dL (14.0-18.0) L 11/22/21 19:15 Hct 28.9 % (42-52) L 11/22/21 19:15 MCV 101.8 fL (80-100) H 11/22/21 19:15 MCH 32.7 pg (25-34) 11/22/21 19:15 MCHC 32.2 g/dL (32-36) 11/22/21 19:15 RDW Std Deviation 64.7 fL (36.4-46.3) H 11/22/21 19:15 RDW Coeff of Jairon 17.1 % (11.5-14.5) H 11/22/21 19:15 Plt Count 148 K/uL (130-400) 11/22/21 19:15 MPV 11.4 fL (7.4-10.4) H 11/22/21 19:15 Immature Gran % (Auto) 0.7 % 11/22/21 19:15 Neut % (Auto) 76.0 % 11/22/21 19:15 Lymph % (Auto) 8.1 % 11/22/21 19:15 Willacy % (Auto) 14.9 % 11/22/21 19:15 Eos % (Auto) 0.3 % 11/22/21 19:15 Baso % (Auto) 0.0 % 11/22/21 19:15 Neut # (Auto) 5.72 K/uL (1.4-6.5) 11/22/21 19:15 Lymph # (Auto) 0.61 K/uL (1.2-3.4) L 11/22/21 19:15 Willacy # (Auto) 1.12 K/uL (0.11-0.59) H 11/22/21 19:15 Eos # (Auto) 0.02 K/uL (0-0.5) 11/22/21 19:15 Baso # (Auto) 0.00 K/uL (0-0.2) 11/22/21 19:15 Immature Gran # (Auto) 0.05 K/uL (0.00-0.02) H 11/22/21 19:15 Polychromasia 1+ 11/22/21 19:15 PT 12.2 Seconds (9.0-12.0) H 11/22/21 19:15 INR 1.2 (0.9-1.1) H 11/22/21 19:15 APTT 35.1 Seconds (21.0-31.0) H 11/22/21 19:15 PTT Ratio 1.3 11/22/21 19:15 VBG pH 7.38 (7.36-7.41) 11/22/21 19:15 VBG pCO2 46 mmHg (38-50) 11/22/21 19:15 VBG pO2 51 mmHg 11/22/21 19:15 VBG HCO3 26 mmol/L 11/22/21 19:15 VBG O2 Saturation 82.8 % 11/22/21 19:15 VBG Base Excess 1.0 mEq/L 11/22/21 19:15 Barometric Pressure 731.9 mm/Hg 11/22/21 19:15 Sodium 136 mmol/L (136-145) 11/22/21 19:15 Potassium 4.1 mmol/L (3.5-5.1) 11/22/21 19:15 Chloride 103 mmol/L (98-107) 11/22/21 19:15 Carbon Dioxide 26 mmol/L (21-32) 11/22/21 19:15 Anion Gap 7 (3-11) 11/22/21 19:15 BUN 12 mg/dl (6-23) 11/22/21 19:15 Creatinine 1.20 mg/dl (0.6-1.4) 11/22/21 19:15 Est Cr Clr Drug Dosing 48.9 ml/min 11/22/21 19:15 Est GFR ( Amer) 64.9 ml/min 11/22/21 19:15 Est GFR (Non-Af Amer) 56.0 ml/min 11/22/21 19:15 BUN/Creatinine Ratio 10.0 (10-20) 11/22/21 19:15 Glucose 164 mg/dl (70-99(Fasting)) H 11/22/21 19:15 Lactate 1.3 mmol/L (0.4-2.0) 11/22/21 19:15 Calcium 8.5 mg/dl (8.5-10.1) 11/22/21 19:15 Magnesium 1.9 mg/dl (1.7-2.4) 11/22/21 19:15 Total Bilirubin 0.6 mg/dl (0.2-1.0) 11/22/21 19:15 Direct Bilirubin 0.1 mg/dl (0-0.2) 11/22/21 19:15 AST 18 U/L (13-39) 11/22/21 19:15 ALT 14 U/L (7-52) 11/22/21 19:15 Alkaline Phosphatase 101 U/L (34-104) 11/22/21 19:15 Troponin I 0.03 ng/ml (0-0.04) 11/22/21 19:15 B-Natriuretic Peptide 374 pg/ml (0-100) H 11/22/21 19:15 Total Protein 6.8 gm/dl (6.0-8.3) 11/22/21 19:15 Albumin 3.1 gm/dl (3.4-5.0) L 11/22/21 19:15 Lipase 5 U/L (11-82) L 11/22/21 19:15 SARS-CoV-2 (PCR) NEGATIVE (Negative) 11/22/21 19:24 Influenza Type A (PCR) Negative (Neg) 11/22/21 19:24 Influenza Type B (PCR) Negative (Neg) 11/22/21 19:24 RSV (RT-PCR) Negative (Neg) 11/22/21 19:24 Impressions Chest X-Ray 11/22/21 18:57 XR chest 1V portable CLINICAL HISTORY: sob TECHNIQUE: Single frontal radiograph of the chest was obtained. Comparison: Comparison is made to chest one view 09/14/2021 FINDINGS: Orthopedic hardware is seen over the left humerus. The cardiomediastinal silhouette is obscured. Multifocal airspace opacities are seen. Small bilateral pleural effusions are seen. IMPRESSION: Multifocal airspace opacities may represent atelectasis, pneumonia, and/or aspiration. Small bilateral pleural effusions are seen. ACT 112: Negative or not required by law. Electronically signed by: Kamran Modi M.D. 11/22/2021 8:07 PM Diagnostic Findings EKG as per my interpretation : Rate 95, NSR, LAD, LAFB, T wave abnormalities lateral leads
[2021-11-22] MEDS ORDERED: DOXYCYCLINE HYCLATE 100 MG in DEXTROSE 5% 100 ML IV ONE (22:00)
[2021-11-22] MEDS: APIXABAN 5 MG TABLET PO SCH (22:49)
[2021-11-22] MEDS: METOPROLOL TARTRATE 25 MG TAB PO SCH (22:49)
[2021-11-23] MEDS ORDERED: CARBOHYDRATES FOR HYPOGLYCEMIA PO PRN (00:48)
[2021-11-23] MEDS ORDERED: DEXTROSE 50% 50 ML SYRINGE IV PRN (00:48)
[2021-11-23] MEDS ORDERED: GLUCOSE 10 TABS/TUBE PO PRN (00:48)
[2021-11-23] MEDS ORDERED: GLUCOSE 40% GEL 15 GM TUBE PO PRN (00:48)
[2021-11-23] MEDS ORDERED: PROMETHAZINE HCL 12.5 MG in SODIUM CHLORIDE 0.9% 50 ML IV PRN (00:48)
[2021-11-23] MEDS ORDERED: GLUCAGON FOR INJ 1 MG VIAL SQ PRN (00:48)
[2021-11-23] MEDS ORDERED: ACETAMINOPHEN 325 MG TAB PO PRN (00:48)
[2021-11-23] MEDS ORDERED: XOPENEX/ATROVENT 1.25mg/0.5MG NEB COMBO NEB SCH (01:00)
[2021-11-23] MEDS: traMADol HCL 50 MG TABLET PO PRN ×3 (02:06→21:53)
[2021-11-23] MEDS: INSULIN ASPART PER UNIT SC SCH ×5 (02:09→21:48)
[2021-11-23] MEDS: LEVALBUTEROL 1.25MG/0.5ML NEB INH SCH ×4 (03:37→20:17)
[2021-11-23] MEDS: IPRATROPIUM BROMIDE NEB SOLN 0.02% 2.5 ML VIAL INH SCH ×4 (03:37→20:17)
[2021-11-23] MEDS: PIPERACILLIN/TAZOBACTAM 3.375 GM in DEXTROSE 5% 100 ML IV SCH ×3 (05:49→21:47)
[2021-11-23] MEDS: predniSONE 20 MG TAB PO SCH (08:20)
[2021-11-23] MEDS: ROSUVASTATIN CALCIUM 20 MG TAB PO SCH (08:28)
[2021-11-23] MEDS: CLOPIDOGREL BISULFATE 75 MG TAB PO SCH (08:28)
[2021-11-23] MEDS: AMIODARONE 200 MG TAB PO SCH (08:29)
[2021-11-23] MEDS: APIXABAN 5 MG TABLET PO SCH ×2 (08:30→21:48)
[2021-11-23] MEDS: DOXYCYCLINE HYCLATE 100 MG CAP PO SCH ×2 (08:30→21:47)
[2021-11-23] MEDS: METOPROLOL TARTRATE 25 MG TAB PO SCH ×2 (08:39→21:47)
--- NOTE | 2021-11-23 11:33 | Electrocardiogram Report ---
Test Reason : Blood Pressure : / mmHG Vent. Rate : 096 BPM Atrial Rate : 096 BPM P-R Int : 204 ms QRS Dur : 122 ms QT Int : 392 ms P-R-T Axes : 094 -38 072 degrees QTc Int : 495 ms Normal sinus rhythm Left axis deviation Poor R wave progression, consider anterior MA vs. lead placement vs. LVH Abnormal ECG When compared with ECG of 06-NOV-2021 12:36, Questionable change in initial forces of Lateral leads Confirmed by Sonny Tamayo ([id number]) on 11/23/2021 11:32:56 AM Referred By: [facility] Confirmed By:Sonny Tamayo
--- NOTE | 2021-11-23 14:24 | Hospitalist Progress Note ---
Date of Service November 23, 2021 Assessment & Plan (1) Respiratory failure, acute and chronic: (2) Pneumonia: Plan: 80 y/o M w/CAD, chronic respiratory failure with hypoxemia due to asbestosis and COPD (on 4 L of oxygen at baseline), Toxic megacolon d/t C.diff [s/p exp lap/subtotal colectomy/ileostomy on 09/17/21], HTN, HLD, CKD, and MIGDALIA who presented to the ED 11/22 with acute onset of shortness of breath not amenable to uptitrating his oxygen on the day of his arrival. He is being managed for the following: #. Acute on chronic hypoxic respiratory failure #. Likely pneumonia History of chronic respiratory failure 2/2 asbestosis and COPD on 4 L oxygen at baseline. Presented with acute shortness of breath not amenable to uptitrating his oxygen on the day of his arrival. Patient's oxygen concentration does not go above 5 L, and is hence requesting if he can get oxygen concentrator that goes up to 10 L [he reports he had such device earlier]---> rn field case manager made aware, likely will need 2 step test prior to discharge to determine current oxygen requirement. Admitting CXR: Multifocal airspace opacities likely pneumonia.; Nasal MRSA screen positive Patient afebrile, WBC were WNL, cough improving, oxygen requirement improving. Continue with Zosyn 11/23 and doxycycline 11/23; patient received a dose of cefepime and vancomycin in the ED. Continue to monitor. #. Other chronic medical conditions: A. 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 Currently NSR. Continue with SSI. DVT prophylaxis. Mirna DNR Admission and Anticipated Discharge Date Admission Date: November 22, 2021 Subjective Patient seen and evaluated at bedside for acute onset shortness of breath likely pneumonia not relieved by titrating the oxygen up to 5 L at [facility]. Of note, patient uses 3 to 4 L oxygen at baseline. Patient lying in bed, NAD, on 5 L nasal cannula oxygen, no new acute events overnight. Patient reports eating okay. Has good stoma output. Patient denies fever/chills/chest pain/palpitation/belly pain/other review of symptoms. Patient reports feeling better. Physical Exam Physical Exam: GENERAL: Alert and oriented x3. NAD, on 5L NC HEENT: No pallor, no icterus. Pupils equal, round and reactive to light. Oral mucosa moist. NECK: No JVD, no neck masses. HEART: S1 and S2 heard. Regular rate and rhythm. No murmur, no gallop. RESPIRATORY SYSTEM: Normal AP diameter. No accessory muscle use. No wheezing, b/b crackles. ABDOMEN: Soft, bowel sounds present, nontender, no distention. Left stoma with nonbloody fecal collection. No tenderness or erythema around the site. CENTRAL NERVOUS SYSTEM: No facial droop. Speech is clear. Obeys simple commands. Moves extremities. EXTREMITIES: No edema, no erythema seen. Results & Data Results & Data ([facility]) Vital Signs (Past 12 Hours) Vital Signs Temp Pulse Pulse Resp BP Pulse Ox 11/23/21 13:34 79 18 94 11/23/21 11:29 36.5 C 76 20 138/67 93 11/23/21 07:47 36.3 C L 74 20 154/75 H 95 11/23/21 07:28 76 11/23/21 07:25 76 18 95 11/23/21 06:08 91 11/23/21 05:56 94 11/23/21 03:58 71 11/23/21 03:37 36.4 C L 66 18 150/73 H 97 (1) Pneumonia Laterality: unspecified laterality Lung location: unspecified part of lung Pneumonia type: due to unspecified organism Qualified Code(s): J18.9 - Pneumonia, unspecified organism
[2021-11-23] MEDS ORDERED: VANCOMYCIN HCL 1,250 MG in SODIUM CHLORIDE 0.9% 250 ML IV SCH (20:00)
[2021-11-23] MEDS: INSULIN GLARGINE SOLOSTAR 100 UNITS/ML 3 ML PEN SC SCH (21:52)
[2021-11-24] MEDS: LEVALBUTEROL 1.25MG/0.5ML NEB INH SCH ×5 (00:12→23:59)
[2021-11-24] MEDS: IPRATROPIUM BROMIDE NEB SOLN 0.02% 2.5 ML VIAL INH SCH ×5 (00:12→23:59)
[2021-11-24] MEDS: PIPERACILLIN/TAZOBACTAM 3.375 GM in DEXTROSE 5% 100 ML IV SCH ×3 (04:58→19:55)
[2021-11-24 06:58] LABS: Hematocrit (blood only) 27.4 % (42-52); Mean Corpuscular Hemoglobin 33.6 pg (25-34); Mean Corpuscular Hgb Conc 32.8 g/dL (32-36); Mean Corpuscular Volume 102.2 fL (80-100); Mean Platelet Volume 11.8 fL (7.4-10.4); Platelet Count 162 K/uL (130-400); RDW Coefficient of Variation 17.5 % (11.5-14.5); RDW Standard Deviation 64.5 fL (36.4-46.3); Red Blood Count 2.68 M/uL (4.7-6.1); White Blood Count 9.76 K/uL (4.8-10.8)
[2021-11-24] MEDS: DOXYCYCLINE HYCLATE 100 MG CAP PO SCH ×2 (08:07→19:59)
[2021-11-24] MEDS: APIXABAN 5 MG TABLET PO SCH ×2 (08:07→19:58)
[2021-11-24] MEDS: AMIODARONE 200 MG TAB PO SCH (08:08)
[2021-11-24] MEDS: CLOPIDOGREL BISULFATE 75 MG TAB PO SCH (08:09)
[2021-11-24] MEDS: METOPROLOL TARTRATE 25 MG TAB PO SCH ×2 (08:09→20:00)
[2021-11-24] MEDS: ROSUVASTATIN CALCIUM 20 MG TAB PO SCH (08:10)
[2021-11-24] MEDS: predniSONE 20 MG TAB PO SCH (08:10)
[2021-11-24] MEDS: traMADol HCL 50 MG TABLET PO PRN ×3 (08:21→19:55)
[2021-11-24] MEDS: INSULIN ASPART PER UNIT SC SCH ×4 (08:32→20:18)
--- NOTE | 2021-11-24 14:46 | Hospitalist Progress Note ---
Date of Service November 24, 2021 Assessment & Plan (1) Respiratory failure, acute and chronic: (2) Pneumonia: Plan: 80 y/o M w/CAD, chronic respiratory failure with hypoxemia due to asbestosis and COPD (on 4 L of oxygen at baseline), Toxic megacolon d/t C.diff [s/p exp lap/subtotal colectomy/ileostomy on 09/17/21], HTN, HLD, CKD, and MIGDALIA who presented to the ED 11/22 with acute onset of shortness of breath not amenable to uptitrating his oxygen on the day of his arrival. He is being managed for the following: #. Acute on chronic hypoxic respiratory failure #. Likely pneumonia History of chronic respiratory failure 2/2 asbestosis and COPD on 4 L oxygen at baseline. Presented with acute shortness of breath not amenable to uptitrating his oxygen on the day of his arrival. Patient's oxygen concentration does not go above 5 L, and is hence requesting if he can get oxygen concentrator that goes up to 10 L [he reports he had such device earlier]---> family service caseworker made aware (11/23 and 11/24), likely will need 2 step test prior to discharge to determine current oxygen requirement. Admitting CXR: Multifocal airspace opacities likely pneumonia.; Nasal MRSA screen positive Patient afebrile, WBC were WNL, cough improving, oxygen requirement improving. Continue with Zosyn 11/23 and doxycycline 11/23; patient received a dose of cefepime and vancomycin in the ED. Continue to monitor. #. Other chronic medical conditions: A. 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 Currently NSR. Continue with SSI. DVT prophylaxis. Mirna DNR Disposition: PT/OT, CM to assist with DC planning. Patient likely will need 2 step test prior to discharge. Admission and Anticipated Discharge Date Admission Date: November 22, 2021 Subjective Patient seen and evaluated at bedside for acute onset shortness of breath likely pneumonia not relieved by titrating the oxygen up to 5 L at [facility]. Of note, patient uses 3 to 4 L oxygen at baseline. Patient lying in bed, NAD, on 4 L nasal cannula oxygen, no new acute events overnight. Patient reports eating okay. Has good stoma output. Patient denies fever/chills/chest pain/palpitation/belly pain/other review of symptoms. Patient reports feeling better. Physical Exam Physical Exam: GENERAL: Alert and oriented x3. NAD, on 4L NC HEENT: No pallor, no icterus. Pupils equal, round and reactive to light. Oral mucosa moist. NECK: No JVD, no neck masses. HEART: S1 and S2 heard. Regular rate and rhythm. No murmur, no gallop. RESPIRATORY SYSTEM: Normal AP diameter. No accessory muscle use. No wheezing, b/b crackles. ABDOMEN: Soft, bowel sounds present, nontender, no distention. Left stoma with nonbloody fecal collection. No tenderness or erythema around the site. CENTRAL NERVOUS SYSTEM: No facial droop. Speech is clear. Obeys simple commands. Moves extremities. EXTREMITIES: No edema, no erythema seen. Results & Data Results & Data ([facility]) Vital Signs (Past 12 Hours) Vital Signs Temp Pulse Pulse Resp BP Pulse Ox 11/24/21 12:35 82 20 91 11/24/21 11:55 36.6 C 79 20 148/69 H 92 11/24/21 08:00 77 18 92 11/24/21 07:35 37.1 C 76 20 130/64 92 11/24/21 07:07 80 11/24/21 03:02 36.6 C 84 16 124/67 93 (1) Pneumonia Laterality: unspecified laterality Lung location: unspecified part of lung Pneumonia type: due to unspecified organism Qualified Code(s): J18.9 - Pneumonia, unspecified organism
[2021-11-24] MEDS: INSULIN GLARGINE SOLOSTAR 100 UNITS/ML 3 ML PEN SC SCH (20:16)
[2021-11-25] MEDS: traMADol HCL 50 MG TABLET PO PRN ×3 (02:06→21:05)
[2021-11-25] MEDS: PIPERACILLIN/TAZOBACTAM 3.375 GM in DEXTROSE 5% 100 ML IV SCH ×2 (03:50→13:00)
[2021-11-25] MEDS: LEVALBUTEROL 1.25MG/0.5ML NEB INH SCH ×3 (07:21→20:05)
[2021-11-25] MEDS: IPRATROPIUM BROMIDE NEB SOLN 0.02% 2.5 ML VIAL INH SCH ×3 (07:21→20:05)
[2021-11-25 08:09] LABS: Creatinine Clr Calc Pharmacy 46.1 ml/min; Est GFR (Non-African American) 51.8 ml/min
[2021-11-25] MEDS: DOXYCYCLINE HYCLATE 100 MG CAP PO SCH ×2 (08:16→21:06)
[2021-11-25] MEDS: predniSONE 20 MG TAB PO SCH (08:16)
[2021-11-25] MEDS: METOPROLOL TARTRATE 25 MG TAB PO SCH ×2 (08:16→22:31)
[2021-11-25] MEDS: AMIODARONE 200 MG TAB PO SCH (08:16)
[2021-11-25] MEDS: CLOPIDOGREL BISULFATE 75 MG TAB PO SCH (08:16)
[2021-11-25] MEDS: ROSUVASTATIN CALCIUM 20 MG TAB PO SCH (08:17)
[2021-11-25] MEDS: APIXABAN 5 MG TABLET PO SCH ×2 (08:17→21:06)
[2021-11-25] MEDS: INSULIN ASPART PER UNIT SC SCH ×4 (08:27→21:06)
--- NOTE | 2021-11-25 15:01 | Hospitalist Progress Note ---
Date of Service November 25, 2021 Assessment & Plan (1) Respiratory failure, acute and chronic: (2) Pneumonia: Plan: 80 y/o M w/CAD, chronic respiratory failure with hypoxemia due to asbestosis and COPD (on 4 L of oxygen at baseline), Toxic megacolon d/t C.diff [s/p exp lap/subtotal colectomy/ileostomy on 09/17/21], HTN, HLD, CKD, and MIGDALIA who presented to the ED 11/22 with acute onset of shortness of breath not amenable to uptitrating his oxygen on the day of his arrival. He is being managed for the following: #. Acute on chronic hypoxic respiratory failure #. Likely pneumonia History of chronic respiratory failure 2/2 asbestosis and COPD on 4 L oxygen at baseline. Presented with acute shortness of breath not amenable to uptitrating his oxygen on the day of his arrival. Patient's oxygen concentration does not go above 5 L, and is hence requesting if he can get oxygen concentrator that goes up to 10 L [he reports he had such device earlier]---> bilingual patient support caseworker made aware (11/23 and 11/24), likely will need 2 step test prior to discharge to determine current oxygen requirement. Admitting CXR: Multifocal airspace opacities likely pneumonia.; Nasal MRSA screen positive Patient afebrile, WBC were WNL, cough improving, oxygen requirement improving. Pt desaturating with exercise with PT, needing upto 6-8L O2. Continue with Zosyn 11/23 --> 11/25 Augmentin and doxycycline 11/23; patient received a dose of cefepime and vancomycin in the ED. Continue to monitor. #. Other chronic medical conditions: A. 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 Currently NSR. Continue with SSI. DVT prophylaxis. Eliquis DNR Disposition: PT/OT, CM to assist with DC planning. Patient likely will need 2 step test prior to discharge. Admission and Anticipated Discharge Date Admission Date: November 22, 2021 Subjective Patient seen and evaluated at bedside for acute onset shortness of breath likely pneumonia not relieved by titrating the oxygen up to 5 L at [facility]. Of note, patient uses 3 to 4 L oxygen at baseline. Patient lying in bed, NAD, on 6 L nasal cannula oxygen (was working with OT), no new acute events overnight. Patient reports eating okay. Has good stoma output. Patient denies fever/chills/chest pain/palpitation/belly pain/other review of symptoms. Patient reports feeling better. Physical Exam Physical Exam: GENERAL: Alert and oriented x3. NAD, on 4L NC HEENT: No pallor, no icterus. Pupils equal, round and reactive to light. Oral mucosa moist. NECK: No JVD, no neck masses. HEART: S1 and S2 heard. Regular rate and rhythm. No murmur, no gallop. RESPIRATORY SYSTEM: Normal AP diameter. No accessory muscle use. No wheezing, b/b crackles improving ABDOMEN: Soft, bowel sounds present, nontender, no distention. Left stoma with nonbloody fecal collection. No tenderness or erythema around the site. CENTRAL NERVOUS SYSTEM: No facial droop. Speech is clear. Obeys simple commands. Moves extremities. EXTREMITIES: No edema, no erythema seen. Results & Data Results & Data ([facility]) Vital Signs (Past 12 Hours) Vital Signs Temp Pulse Pulse Pulse Pulse Resp Resp 11/25/21 12:43 77 19 11/25/21 11:30 36.5 C 83 19 11/25/21 10:21 11/25/21 10:10 11/25/21 10:07 82 79 28 H 11/25/21 07:23 71 18 11/25/21 07:19 74 11/25/21 07:17 36.4 C L 75 20 11/25/21 03:20 36.5 C 73 18 Resp BP Pulse Ox Pulse Ox Pulse Ox Pulse Ox Pulse Ox 11/25/21 12:43 92 11/25/21 11:30 158/73 H 92 11/25/21 10:21 94 11/25/21 10:10 94 96 11/25/21 10:07 20 85 L 90 11/25/21 07:23 95 11/25/21 07:19 11/25/21 07:17 157/75 H 91 11/25/21 03:20 158/74 H 94 Pulse Ox 11/25/21 12:43 11/25/21 11:30 11/25/21 10:21 11/25/21 10:10 86 L 11/25/21 10:07 11/25/21 07:23 11/25/21 07:19 11/25/21 07:17 11/25/21 03:20 (1) Pneumonia Laterality: unspecified laterality Lung location: unspecified part of lung Pneumonia type: due to unspecified organism Qualified Code(s): J18.9 - Pneumonia, unspecified organism
[2021-11-25] MEDS: AMOXICILLIN/CLAVULANATE 875 MG TAB PO SCH (17:21)
[2021-11-25] MEDS: INSULIN GLARGINE SOLOSTAR 100 UNITS/ML 3 ML PEN SC SCH (21:08)
[2021-11-26] MEDS: LEVALBUTEROL 1.25MG/0.5ML NEB INH SCH ×2 (01:03→07:16)
[2021-11-26] MEDS: IPRATROPIUM BROMIDE NEB SOLN 0.02% 2.5 ML VIAL INH SCH ×2 (01:03→07:16)
[2021-11-26] MEDS: traMADol HCL 50 MG TABLET PO PRN ×3 (03:16→20:21)
[2021-11-26] MEDS: predniSONE 20 MG TAB PO SCH (09:06)
[2021-11-26] MEDS: ROSUVASTATIN CALCIUM 20 MG TAB PO SCH (09:07)
[2021-11-26] MEDS: CLOPIDOGREL BISULFATE 75 MG TAB PO SCH (09:07)
[2021-11-26] MEDS: APIXABAN 5 MG TABLET PO SCH ×2 (09:07→20:21)
[2021-11-26] MEDS: DOXYCYCLINE HYCLATE 100 MG CAP PO SCH ×2 (09:07→20:21)
[2021-11-26] MEDS: AMIODARONE 200 MG TAB PO SCH (09:07)
[2021-11-26] MEDS: AMOXICILLIN/CLAVULANATE 875 MG TAB PO SCH ×2 (09:07→17:34)
[2021-11-26] MEDS: METOPROLOL TARTRATE 25 MG TAB PO SCH ×2 (09:07→20:21)
[2021-11-26] MEDS: INSULIN ASPART PER UNIT SC SCH ×4 (09:09→21:01)
[2021-11-26 09:52] LABS: Creatinine Clr Calc Pharmacy 43.1 ml/min; Est GFR (African American) 55.3 ml/min; Est GFR (Non-African American) 47.7 ml/min
[2021-11-26] MEDS ORDERED: LEVALBUTEROL 1.25MG/0.5ML NEB INH PRN (12:46)
[2021-11-26] MEDS ORDERED: IPRATROPIUM BROMIDE NEB SOLN 0.02% 2.5 ML VIAL INH PRN (12:46)
--- NOTE | 2021-11-26 16:40 | Hospitalist Progress Note ---
Date of Service November 26, 2021 Assessment & Plan (1) Respiratory failure, acute and chronic: (2) Pneumonia: Plan: 80 y/o M w/CAD, chronic respiratory failure with hypoxemia due to asbestosis and COPD (on 4 L of oxygen at baseline), Toxic megacolon d/t C.diff [s/p exp lap/subtotal colectomy/ileostomy on 09/17/21], HTN, HLD, CKD, and MIGDALIA who presented to the ED 11/22 with acute onset of shortness of breath not amenable to uptitrating his oxygen on the day of his arrival. He is being managed for the following: Acute on chronic hypoxic respiratory failure Likely pneumonia History of chronic respiratory failure 2/2 asbestosis and COPD on 3 L oxygen at baseline. Presented with acute shortness of breath not amenable to uptitrating his oxygen on the day of his arrival. Patient currently saturating well on chronic 3 L of oxygen Two-step oxygen eval tomorrow before discharge Admitting CXR: Multifocal airspace opacities likely pneumonia.; Nasal MRSA screen positive Patient afebrile, WBC were WNL, cough improving, oxygen requirement improving. Zosyn 11/23 --> 11/25, Augmentin and doxycycline 11/23; patient received a dose of cefepime and vancomycin in the ED. Other chronic medical conditions: A. 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 Currently NSR. Continue with SSI. History of chronic anemia, Hgb 9.0 on 11/24 - will check H&H in the a.m. DVT prophylaxis. Eliquis Disposition: PT/OT recommending discharge back to [facility] with HH. [place] pharmaceutical specialty representative coming to evaluate the patient tomorrow. Admission and Anticipated Discharge Date Admission Date: November 22, 2021 Supervising Physician Co-Signing Physician Notes 80 y/o M w/CAD, chronic respiratory failure with hypoxemia due to asbestosis and COPD (on 4 L of oxygen at baseline), Toxic megacolon d/t C.diff [s/p exp lap/subtotal colectomy/ileostomy on 11/23/21], HTN, HLD, CKD, and MIGDALIA who presented to the ED 11/22 with acute onset of shortness of breath not amenable to uptitrating his oxygen on the day of his arrival. He is being managed for the following: #. Acute on chronic hypoxic respiratory failureresolved #. Likely pneumoniaon antibiotics Pt doing better, awaiting placement. Likely return to [facility]. GENERAL: Alert and oriented x3. NAD, on 3L NC HEENT: No pallor, no icterus. Pupils equal, round and reactive to light. Oral mucosa moist. NECK: No JVD, no neck masses. HEART: S1 and S2 heard. Regular rate and rhythm. No murmur, no gallop. RESPIRATORY SYSTEM: Normal AP diameter. No accessory muscle use. No wheezing, b/b crackles improving ABDOMEN: Soft, bowel sounds present, nontender, no distention. Left stoma with nonbloody fecal collection. No tenderness or erythema around the site. CENTRAL NERVOUS SYSTEM: No facial droop. Speech is clear. Obeys simple commands. Moves extremities. EXTREMITIES: No edema, no erythema seen. I have seen and examined the patient and have discussed the case with the provider above. I agree with the assessment and plan as stated. Subjective Patient seen and examined. Follow-up for acute on chronic respiratory failure likely secondary to pneumonia. Patient offers no complaints, currently saturating well on chronic 3 L of oxygen. Eager to be discharged back to [facility]. Denies chest pain, shortness of breath. No abdominal pain or nausea. Good appetite. Review of Systems Review of Systems: ROS per HPI, all other systems reviewed and negative Physical Exam Constitutional: WD/WN, vitals as above no acute distress Respiratory: normal respiratory effort; no respiratory distress Auscultation: + diminished lung sounds Cardiovascular: Rate/Rhythm: regular rate and regular rhythm Vessels: normal peripheral pulses Extremities: no edema Gastrointestinal (Abdomen): Percussion/Palpation: abdomen soft; abdomen nontender Ostomy in place Skin: no rashes, warm and dry Neurologic: no focal motor deficits Psychiatric: A+Ox3, euthymic affect Results & Data Results & Data ([facility]) Vital Signs (Past 12 Hours) Vital Signs Temp Pulse Resp BP Pulse Ox 11/26/21 14:35 36.2 C L 68 16 166/67 H 93 11/26/21 07:29 36.4 C L 73 16 179/78 H 90 11/26/21 07:18 70 18 95 Laboratory Results BMP 11/26/21 08:42 Creatinine 1.37 (1) Pneumonia Laterality: unspecified laterality Lung location: unspecified part of lung Pneumonia type: due to unspecified organism Qualified Code(s): J18.9 - Pneumonia, unspecified organism
[2021-11-26] MEDS: INSULIN GLARGINE SOLOSTAR 100 UNITS/ML 3 ML PEN SC SCH (21:01)
[2021-11-27 07:32] LABS: Hematocrit (blood only) 32.4 % (42-52); Hemoglobin 10.3 g/dL (14.0-18.0)
[2021-11-27 07:57] LABS: Creatinine Clr Calc Pharmacy 50.5 ml/min; Est GFR (African American) 66.9 ml/min; Est GFR (Non-African American) 57.7 ml/min
[2021-11-27] MEDS: INSULIN ASPART PER UNIT SC SCH ×2 (08:39→13:24)
[2021-11-27] MEDS: CLOPIDOGREL BISULFATE 75 MG TAB PO SCH (08:40)
[2021-11-27] MEDS: ROSUVASTATIN CALCIUM 20 MG TAB PO SCH (08:41)
[2021-11-27] MEDS: DOXYCYCLINE HYCLATE 100 MG CAP PO SCH (08:41)
[2021-11-27] MEDS: AMIODARONE 200 MG TAB PO SCH (08:41)
[2021-11-27] MEDS: METOPROLOL TARTRATE 25 MG TAB PO SCH (08:41)
[2021-11-27] MEDS: APIXABAN 5 MG TABLET PO SCH (08:41)
[2021-11-27] MEDS: AMOXICILLIN/CLAVULANATE 875 MG TAB PO SCH (09:42)
--- NOTE | 2021-11-27 10:56 | Discharge Summary ---
Date of Service November 27, 2021 Admission HPI Per Admitting Provider History obtained from patient, family, and records. Medical history significant for chronic respiratory failure secondary to COPD/asbestosis on home O2, CAD as per records, PAF on Eliquis, history CVA, hypertension, hyperlipidemia, DM2 diet-controlled, hyperlipidemia, chronic anemia (baseline hemoglobin 9-10), past tobacco abuse Recent confinement 2 weeks ago for embolic CVA. Few days history of junky cough symptoms without chest pain, S OB concerns. Patient denies aspiration. Patient unsure about recent sick contacts given personal fdc residence. Patient has completed COVID-19 vaccination. Today, patient had sudden increase in shortness of breath especially on exertion. Patient denies fluid retention. Unsure about weight gain as he does not do daily weights at facility. Increase in usual O2 requirement from 3 L per nasal cannula to 6 L. O2 sats 60s upon EMS arrival. Patient placed on 10 L nonrebreather mask. BiPAP placed upon arrival at the ER. Solu-Medrol and neb treatment subsequently administered. Patient currently feeling much better. 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 Admission Exam Per Admitting Provider General: no distress, WDWN Head: normocephalic, atraumatic Eyes: PERRL, EOM's intact, conjunctiva non-injected, anicteric ENT: normal inspection external ears, nose, mucous membranes moist Neck: supple, trachea midline Lungs: clear, no respiratory distress on chronic 4L oxygen via NC, +diminished breath sounds throughout CV: RRR, no murmur, no pretibial edema Abd: +colostomy bag in place with brown soft stool in bag, +healed surgical incision mid abdomen, normal BS, soft, non-tender Ext: no cyanosis, no calf tenderness Neuro: A&O x 3, Visual durbin intact. PERRL, EOMs intact. No nystagmus, facial sensation is intact and symmetric, the face is strong and symmetric, Hearing grossly intact, Soft palate elevates symmetrically, no dysarthria, Shoulder shrug intact, Tongue is midline, normal movement, no fasciculations, strength 4/5 left leg, 5/5 right leg, +decreased director supplier quality strength left hand compared to right Skin: warm, dry, +diffuse erythematous maculopapular rash with erythematous lace like appearance, +scattered excoriations and petechiae to bilateral lower legs, +excoriations to bilateral arms +nonblanching erythema to sacrum with approx 1cm skin tear to right buttock Principal Diagnosis Acute on Chronic Hypoxic Respiratory Failure due to Pneumonia Discharge Exam Constitutional WD/WN, vitals as above no acute distress Respiratory normal respiratory effort; no respiratory distress Auscultation: + diminished lung sounds Cardiovascular Rate/Rhythm: regular rate and regular rhythm Vessels: normal peripheral pulses Extremities: no edema Gastrointestinal (Abdomen) Percussion/Palpation: abdomen soft; abdomen nontender ostomy present Skin no rashes, warm and dry Neurologic no focal motor deficits Psychiatric A+Ox3, euthymic affect Discharge Data Allergies Allergy/AdvReac Type Severity Reaction Status Date / Time diltiazem [From Cardizem] Allergy Severe hives Verified 11/22/21 20:35 telmisartan Allergy Unknown Unknown Verified 11/22/21 20:35 Ordered Studies Laboratory Results WBC 9.76 K/uL (4.8-10.8) 11/24/21 06:30 RBC 2.68 M/uL (4.7-6.1) L 11/24/21 06:30 Hgb 10.3 g/dL (14.0-18.0) L 11/27/21 07:09 Hct 32.4 % (42-52) L 11/27/21 07:09 MCV 102.2 fL (80-100) H 11/24/21 06:30 MCH 33.6 pg (25-34) 11/24/21 06:30 MCHC 32.8 g/dL (32-36) 11/24/21 06:30 RDW Std Deviation 64.5 fL (36.4-46.3) H 11/24/21 06:30 RDW Coeff of Jairon 17.5 % (11.5-14.5) H 11/24/21 06:30 Plt Count 162 K/uL (130-400) 11/24/21 06:30 MPV 11.8 fL (7.4-10.4) H 11/24/21 06:30 Immature Gran % (Auto) 0.7 % 11/22/21 19:15 Neut % (Auto) 76.0 % 11/22/21 19:15 Lymph % (Auto) 8.1 % 11/22/21 19:15 Pender % (Auto) 14.9 % 11/22/21 19:15 Eos % (Auto) 0.3 % 11/22/21 19:15 Baso % (Auto) 0.0 % 11/22/21 19:15 Neut # (Auto) 5.72 K/uL (1.4-6.5) 11/22/21 19:15 Lymph # (Auto) 0.61 K/uL (1.2-3.4) L 11/22/21 19:15 Pender # (Auto) 1.12 K/uL (0.11-0.59) H 11/22/21 19:15 Eos # (Auto) 0.02 K/uL (0-0.5) 11/22/21 19:15 Baso # (Auto) 0.00 K/uL (0-0.2) 11/22/21 19:15 Immature Gran # (Auto) 0.05 K/uL (0.00-0.02) H 11/22/21 19:15 Polychromasia 1+ 11/22/21 19:15 PT 12.2 Seconds (9.0-12.0) H 11/22/21 19:15 INR 1.2 (0.9-1.1) H 11/22/21 19:15 APTT 35.1 Seconds (21.0-31.0) H 11/22/21 19:15 PTT Ratio 1.3 11/22/21 19:15 VBG pH 7.38 (7.36-7.41) 11/22/21 19:15 VBG pCO2 46 mmHg (38-50) 11/22/21 19:15 VBG pO2 51 mmHg 11/22/21 19:15 VBG HCO3 26 mmol/L 11/22/21 19:15 VBG O2 Saturation 82.8 % 11/22/21 19:15 VBG Base Excess 1.0 mEq/L 11/22/21 19:15 Barometric Pressure 731.9 mm/Hg 11/22/21 19:15 Sodium 136 mmol/L (136-145) 11/22/21 19:15 Potassium 4.1 mmol/L (3.5-5.1) 11/22/21 19:15 Chloride 103 mmol/L (98-107) 11/22/21 19:15 Carbon Dioxide 26 mmol/L (21-32) 11/22/21 19:15 Anion Gap 7 (3-11) 11/22/21 19:15 BUN 12 mg/dl (6-23) 11/22/21 19:15 Creatinine 1.17 mg/dl (0.6-1.4) 11/27/21 07:09 Est Cr Clr Drug Dosing 50.5 ml/min 11/27/21 07:09 Est GFR ( Amer) 66.9 ml/min 11/27/21 07:09 Est GFR (Non-Af Amer) 57.7 ml/min 11/27/21 07:09 BUN/Creatinine Ratio 10.0 (10-20) 11/22/21 19:15 Glucose 164 mg/dl (70-99(Fasting)) H 11/22/21 19:15 POC Glucose 109 mg/dl (70-99) H 11/27/21 08:15 Lactate 1.3 mmol/L (0.4-2.0) 11/22/21 19:15 Calcium 8.5 mg/dl (8.5-10.1) 11/22/21 19:15 Magnesium 1.9 mg/dl (1.7-2.4) 11/22/21 19:15 Total Bilirubin 0.6 mg/dl (0.2-1.0) 11/22/21 19:15 Direct Bilirubin 0.1 mg/dl (0-0.2) 11/22/21 19:15 AST 18 U/L (13-39) 11/22/21 19:15 ALT 14 U/L (7-52) 11/22/21 19:15 Alkaline Phosphatase 101 U/L (34-104) 11/22/21 19:15 Troponin I 0.03 ng/ml (0-0.04) 11/22/21 19:15 B-Natriuretic Peptide 374 pg/ml (0-100) H 11/22/21 19:15 Total Protein 6.8 gm/dl (6.0-8.3) 11/22/21 19:15 Albumin 3.1 gm/dl (3.4-5.0) L 01/28/22 19:15 Lipase 5 U/L (11-82) L 11/22/21 19:15 Nasal Screen MRSA (PCR) Positive (Negative) A 11/23/21 06:10 SARS-CoV-2 (PCR) NEGATIVE (Negative) 11/22/21 19:24 Influenza Type A (PCR) Negative (Neg) 11/22/21 19:24 Influenza Type B (PCR) Negative (Neg) 11/22/21 19:24 RSV (RT-PCR) Negative (Neg) 11/22/21 19:24 Impressions Chest X-Ray 11/22/21 18:57 XR chest 1V portable CLINICAL HISTORY: sob TECHNIQUE: Single frontal radiograph of the chest was obtained. Comparison: Comparison is made to chest one view 09/14/2021 FINDINGS: Orthopedic hardware is seen over the left humerus. The cardiomediastinal silhouette is obscured. Multifocal airspace opacities are seen. Small bilateral pleural effusions are seen. IMPRESSION: Multifocal airspace opacities may represent atelectasis, pneumonia, and/or aspiration. Small bilateral pleural effusions are seen. ACT 112: Negative or not required by law. Electronically signed by: Kamran Modi M.D. 11/22/2021 8:07 PM Hospital Course (1) Respiratory failure, acute and chronic: (2) Pneumonia: 80 y/o M w/CAD, chronic respiratory failure with hypoxemia due to asbestosis and COPD (on 3 L of oxygen at baseline), Toxic megacolon d/t C.diff [s/p exp lap/subtotal colectomy/ileostomy on 09/17/21], HTN, HLD, CKD, and MIGDALIA who presented to the ED 11/22 with acute onset of shortness of breath not amenable to uptitrating his oxygen on the day of his arrival. He is being managed for the following: Acute on chronic hypoxic respiratory failure Likely pneumonia History of chronic respiratory failure 2/2 asbestosis and COPD on 3 L oxygen at baseline. Presented with acute shortness of breath not amenable to uptitrating his oxygen on the day of his arrival. Patient currently saturating well on chronic 3 L of oxygen Two-step oxygen eval completed - patient stable on 3L of O2 Admitting CXR: Multifocal airspace opacities likely pneumonia.; Nasal MRSA screen positive Patient afebrile, WBC were WNL, cough improving, oxygen requirement improving. Zosyn 1/29 --> 11/25, Augmentin and doxycycline 11/23; patient received a dose of cefepime and vancomycin in the ED. Continue Augmentin and doxycycline until 12/02 to complete a 7 day course Hyperglycemia, DM Type II Hgb a1c 6.8 08/2021 Patient received small doses of insulin while admitted. Will not discharge on any new diabetic meds. nutrition educator evaluated the patient and provided a glucose meter. Patient instructed to check glucose daily and provide log to Dr. Nice. Other chronic medical conditions: A. fib on Eliquis/amiodarone, CAD on Plavix, CKD, HTN, h/o embolic CVA, chronic anemia, past tobacco abuse Continue with/resume home meds as and when appropriate. Currently NSR. Continue with SSI. History of chronic anemia, Hgb 9.0 on 11/24 --> 10.3 on 11/27 Total Time Total Time Spent Total Time Spent (In Minutes): 35 Total Time Includes: Examination of the Patient, Discharge Planning and Medication Reconciliation Discharge Plan Discharge Items Patient Disposition: Home - Home Health Services Reason For Visit: Shortness of Breath, Cough Discharge Diagnosis: Acute on Chronic Respiratory Failure due to Pneumonia Activity: As commented below Activity Comment: as tolerated Non-emergency contact: Primary Care Provider Call non-emergency contact if: you have any medication questions, your symptoms worsen, your pain is not controlled and you have a fever [facility], [facility] [Primary Care Provider] - Diet: Carb Consistent or DM2 and Heart Healthy Addtl Attending Provider Instructions: You were admitted to the hospital for worsening shortness of breath. This was felt to be due to pneumonia. You received antibiotics in the hospital and will need to continue taking for 5 more days (Augmentin and Doxycycline) Your blood sugars were mildly elevated while in the hospital and you received insulin. You were provided with a glucose monitor. You will not be discharged on any diabetic medications but continue to check your blood sugar at least daily and provide a log to your doctor. Be evaluated by Dr. Nice within 3 days of returning to [facility]. It was a pleasure taking care of you. If you need to reach a member of the [facility] Hospitalist Team at [facility], please call [phone]. MONTY Walker Pending Studies at Discharge: No Stand-Alone Forms: My [facility], Smoking Cessation Medications and DC Order Prescriptions: New doxycycline hyclate 100 mg Capsule 100 mg PO BID Qty: 11 RF: 0 amoxicillin-pot clavulanate [Augmentin] 875-125 mg Tablet 1 tab PO BIDM Qty: 11 RF: 0 Continued clopidogrel 75 mg tablet 75 mg PO DAILY RF: 0 albuterol sulfate [Ventolin HFA] 90 mcg/actuation HFA aerosol inhaler 2 puff INHALATION Q6 PRN (Reason: Shortness Of Breath Or Wheezing) RF: 0 diphenhydramine HCl [Banophen] 50 mg Capsule 50 mg PO Q8 PRN (Reason: allergies) RF: 0 ondansetron 4 mg tablet,disintegrating 4 mg PO Q4 PRN (Reason: Nausea And Vomiting) RF: 0 Barrier Cream 1 applic topical QID RF: 0 rosuvastatin [Crestor] 20 mg Tablet 20 mg PO QAM Qty: 30 RF: 0 amiodarone 200 mg Tablet 200 mg PO QAM Qty: 5 RF: 0 lansoprazole [Prevacid SoluTab] 30 mg Tablet,Disintegrat, Delay Rel 30 mg PO QAM Qty: 5 RF: 0 metoprolol tartrate 25 mg Tablet 25 mg PO BID Qty: 10 RF: 0 Spiriva with HandiHaler 18 mcg capsule, w/inhalation device See Rx Instructions .ROUTE .COMPLEX Qty: 5 RF: 3 Dulera 200-5 mcg/actuation HFA aerosol inhaler 2 puff inhalation BID Qty: 1 RF: 3 tramadol 50 mg tablet 50 mg PO Q6 PRN (Reason: Pain) RF: 0 hydrocortisone 1 % Cream 1 applic TOPICAL BID RF: 0 Eliquis 5 mg tablet 5 mg PO BID RF: 0 Discharge Orders: Discharge Order (Routine); Ordered 11/27/21 Ordered By: Maria Del Rosario Jimenez/Other Patient Handouts: High Blood Sugar (Hyperglycemia), Hypoglycemia (Low Blood Sugar), 5 Steps for Eating Healthier, Type 2 Diabetes Admission Data Admit Date/Time: 11/22/21 21:35 Attending Provider: Bhavana Nair I. Admit Provider: Bradly Thomason Primary Care Provider: [employer] [facility], [facility] ; [facility] ; Josefa Garcia Other Interventions: Discharge Summary Assessment (RN) Last Done: 11/27/21 12:47 Supervising Physician Co-Signing Physician Notes Patient seen and examined by me Agree with findings and plans as detailed by Maria Del Rosario MILLAN Home Health Attestation I certify that this patient is under my care and that I, or a physicians elsa faith working with me, had a face to-face encounter that meets the home health evhs-uh-rruw encounter requirements with this patient. The encounter with the patient was in whole, or in part, for the following medical condition, which is the primary reason for home health care (list medical condition): resumption of care I certify that, based on my findings, the following services are medically necessary home health services: My clinical findings support the need for the above services because: Further, I certify that my clinical findings support that this patient is homebound (i.e. absences from home require considerable and taxing effort and are for medical reasons or jew services or infrequently or of short duration when for other reasons) because: Certification for Home Health Services: Based on the above findings, I certify that this patient is confined to the home and needs intermittent retirement care, physical therapy and/or speech therapy or continues to need occupational therapy. The patient is under my care, and I have initiated the establishment of the plan of care. This patient will be followed by a physician who will periodically review the plan of care.
== END 2021-11-27 16:30 | disposition home health service (06) | DRG 193 ==
LOC: ED 18:29 → SUATTDRO 21:35 → EDINP 23:35 → 2N 11-23 00:48 → 3N 11-26 00:22

== ENCOUNTER 2022-01-24 16:00 | Inpatient (IN) ==
[2022-01-24] MEDS ORDERED: CEFEPIME 2,000 MG/20 ML VIAL IV STA (16:14)
[2022-01-24] MEDS ORDERED: VANCOMYCIN CONSULT ACTIVE PRN (16:14)
[2022-01-24] MEDS ORDERED: VANCOMYCIN HCL 2,000 MG in SODIUM CHLORIDE 0.9% 500 ML IV STA (16:14)
[2022-01-24] MEDS ORDERED: SODIUM CHLORIDE 0.9% 1000ML 1,000 ML IV SCH ×2 (16:15→17:15)
--- NOTE | 2022-01-24 16:22 | Emergency Department Note ---
History of Present Illness General Chief complaint: Shortness of Breath/Dyspnea Time Seen by Provider: 01/24/22 16:05 History of Present Illness 81-year-old male presents to the ED with a chief complaint of shortness of breath. The patient has a history of A. fib, COPD, hypertension and chronic kidney disease. He resides at [facility]. This morning he developed some nausea and vomiting. He states that he is not sure what made him throw up. He states that there is something going around the skilled nursing. The patient also began feeling short of breath and progressively worse throughout t he day. He does use 3 L of home oxygen at all times. He states that this morning his saturations were 70% on his 3 L. Even with 5% he was in the 70s. He talked to the director there and a sentiment for evaluation this evening. The patient received 4 mg of IV Zofran by EMS. He also received an albuterol treatment and some oral Tylenol as the patient had a temperature of 101 for EMS. Symptoms are worse with any exertion. He does have a nonproductive cough. Home Medications Medication Instructions Recorded Confirmed Type amiodarone 200 mg tablet 200 mg PO QAM #5 tab 10/08/21 01/24/22 Rx lansoprazole 30 mg delayed 30 mg PO QAM #5 tab 10/08/21 01/24/22 Rx release,disintegrating tablet (Prevacid SoluTab) metoprolol tartrate 25 mg tablet 25 mg PO BID #10 tab 10/08/21 01/24/22 Rx tiotropium bromide 18 mcg capsule See Rx Instructions .ROUTE 10/08/21 01/24/22 Rx with inhalation device (Spiriva .COMPLEX #5 capsule with HandiHaler) Barrier Cream 1 applic TOPICAL QID 11/06/21 01/24/22 History albuterol sulfate 90 mcg/actuation 2 puff INHALATION Q6 PRN 11/06/21 01/24/22 History aerosol inhaler (Ventolin HFA) clopidogrel 75 mg tablet 75 mg PO DAILY 11/06/21 01/24/22 History diphenhydramine HCl 50 mg capsule 50 mg PO Q8 PRN 11/06/21 01/24/22 History (Banophen) ondansetron 4 mg disintegrating 4 mg PO Q4 PRN 11/06/21 01/24/22 History tablet rosuvastatin 20 mg tablet (Crestor) 20 mg PO QAM #30 tab 11/08/21 01/24/22 Rx apixaban 5 mg tablet (Eliquis) 5 mg PO BID 11/22/21 01/24/22 History hydrocortisone 1 % topical cream 1 applic TOPICAL BID 11/22/21 01/24/22 History tramadol 50 mg tablet 50 mg PO Q6 PRN 11/22/21 01/24/22 History mometasone-formoterol HFA 200 2 puff INHALATION BID #1 inhaler 01/22/22 01/24/22 Rx mcg-5 mcg/actuation aerosol inhaler (Dulera) sertraline 50 mg tablet 50 mg PO DAILY 01/24/22 01/24/22 History Allergies Allergy/AdvReac Type Severity Reaction Status Date / Time diltiazem [From Cardizem] Allergy Severe hives Verified 11/22/21 20:35 telmisartan Allergy Unknown Unknown Verified 11/22/21 20:35 Past Med/Surg History Medical History Abdominal pain Anemia Asbestosis Benign prostatic disease CAD (coronary artery disease) Chronic kidney disease Chronic obstructive pulmonary disease Chronic respiratory failure with hypoxia Dehydration Emphysematous bleb Hypertension Impaired fasting glucose Obstructive sleep apnea Pleural effusion on right Pleural plaque with presence of asbestos Pulmonary nodule Weakness of left lower extremity Weakness of left upper extremity Surgical History H/O colonoscopy History of cataract surgery History of colectomy 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 Dr. Chau History of shoulder surgery right shoulder surgery Family History Father Emphysema, unspecified Brother Cancer Mother Glaucoma Cancer skin Sister Renal failure Denies family history of Ovarian cancer Prostate cancer Myocardial infarction Breast cancer Colorectal cancer Social History Smoking Status: Former smoker Tobacco Type: Cigarettes Age Started Using Tobacco: 15; Age Quit Using Tobacco: 49; packs per day: 1; Second Hand Exposure: No; Hx Alcohol Use: Yes Alcohol type: beer Alcohol Intake Frequency Comment: has a couple once a week Hx Substance Use: No Preferred Language: Ecuadorean Communication Ability: Effective Visual Impairment: No Limitations Hearing Ability: Normal [employer] Intern Required: No Beliefs That Will Affect Care: None marital status: / Current Living Situation: Personal Care Facility Current Living Situation Comment: recently moved from [facility] to [facility] current occupational status: retired 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 [employer] How many Children do You have: 2 Feels Safe at Home: Yes Childhood Exposure to Second-Hand Smoke: Yes Dental Care, Regularly: No Physical Activity Frequency: Does not Exercise Seatbelt Use: always Sunscreen Use: No Assistive Devices: Oxygen - Continuous and Walker Review of Systems A total of 10 systems reviewed and were otherwise negative Physical Exam Vital Signs Vital Signs - 24 hr 01/24/22 16:11 01/24/22 16:20 01/24/22 16:30 Temperature Temperature Source Pulse Rate 123 H 121 H 122 H Pulse Rate [Apical] Pulse Rate from SpO2 Sensor 123 H 121 H 117 H Pulse Rhythm Pulse Rhythm [Apical] Respiratory Rate 36 H 31 H 27 H Respiratory Effort / Characteristics Respiratory Depth Blood Pressure Blood Pressure [Right Arm] Blood Pressure Mean Blood Pressure Mean [Right Arm] Blood Pressure Position Blood Pressure Position [Right Arm] Pulse Oximetry 100 100 100 Oxygen Delivery Method Oxygen Flow Rate Sepsis Recent Fever Within 48 Hours Sepsis New/Unexplained Change in Mental Status Sepsis Action Taken by Nursing 01/24/22 16:36 01/24/22 16:40 01/24/22 16:47 Temperature 37.0 C Temperature Source Oral Pulse Rate 129 H 125 H 130 H Pulse Rate [Apical] 122 H Pulse Rate from SpO2 Sensor 123 H 130 H Pulse Rhythm Irregular Pulse Rhythm [Apical] Respiratory Rate 24 31 H 22 Respiratory Effort / Characteristics Accessory Muscle Use Accessory Muscle Use Respiratory Depth Normal Blood Pressure 141/73 H 108/63 Blood Pressure [Right Arm] 141/73 H Blood Pressure Mean 95 78 Blood Pressure Mean [Right Arm] 95 Blood Pressure Position Sitting Blood Pressure Position [Right Arm] Pulse Oximetry 100 99 100 Oxygen Delivery Method Non-rebreather Non-rebreather Oxygen Flow Rate 15 15 Sepsis Recent Fever Within 48 Hours No Sepsis New/Unexplained Change in Mental Status N/A Sepsis Action Taken by Nursing No Action Required 01/24/22 16:50 01/24/22 17:00 01/24/22 17:10 Temperature Temperature Source Pulse Rate 126 H 124 H 123 H Pulse Rate [Apical] Pulse Rate from SpO2 Sensor 126 H 123 H 120 H Pulse Rhythm Pulse Rhythm [Apical] Respiratory Rate 25 H 29 H 21 Respiratory Effort / Characteristics Respiratory Depth Blood Pressure 97/64 L Blood Pressure [Right Arm] Blood Pressure Mean 75 Blood Pressure Mean [Right Arm] Blood Pressure Position Blood Pressure Position [Right Arm] Pulse Oximetry 100 99 100 Oxygen Delivery Method Oxygen Flow Rate Sepsis Recent Fever Within 48 Hours Sepsis New/Unexplained Change in Mental Status Sepsis Action Taken by Nursing 01/24/22 17:15 01/24/22 17:16 01/24/22 17:20 Temperature Temperature Source Pulse Rate 120 H 124 H Pulse Rate [Apical] 122 H Pulse Rate from SpO2 Sensor 119 H 124 H Pulse Rhythm Pulse Rhythm [Apical] Respiratory Rate 27 H 20 31 H Respiratory Effort / Characteristics Non-Labored Respiratory Depth Blood Pressure 114/54 L Blood Pressure [Right Arm] 114/54 L Blood Pressure Mean 74 Blood Pressure Mean [Right Arm] 74 Blood Pressure Position Blood Pressure Position [Right Arm] Pulse Oximetry 100 100 99 Oxygen Delivery Method Non-rebreather Oxygen Flow Rate 15 Sepsis Recent Fever Within 48 Hours Sepsis New/Unexplained Change in Mental Status Sepsis Action Taken by Nursing 01/24/22 17:30 01/24/22 17:40 01/24/22 17:45 Temperature Temperature Source Pulse Rate 116 H 112 H 110 H Pulse Rate [Apical] Pulse Rate from SpO2 Sensor 115 H 113 H 104 H Pulse Rhythm Pulse Rhythm [Apical] Respiratory Rate 28 H 21 27 H Respiratory Effort / Characteristics Respiratory Depth Blood Pressure 115/55 L 111/55 L Blood Pressure [Right Arm] Blood Pressure Mean 75 73 Blood Pressure Mean [Right Arm] Blood Pressure Position Blood Pressure Position [Right Arm] Pulse Oximetry 100 100 100 Oxygen Delivery Method Oxygen Flow Rate Sepsis Recent Fever Within 48 Hours Sepsis New/Unexplained Change in Mental Status Sepsis Action Taken by Nursing 01/24/22 17:50 01/24/22 18:00 01/24/22 18:10 Temperature Temperature Source Pulse Rate 110 H 110 H 111 H Pulse Rate [Apical] Pulse Rate from SpO2 Sensor 110 H 109 H 112 H Pulse Rhythm Pulse Rhythm [Apical] Respiratory Rate 28 H 28 H 31 H Respiratory Effort / Characteristics Respiratory Depth Blood Pressure 115/54 L Blood Pressure [Right Arm] Blood Pressure Mean 74 Blood Pressure Mean [Right Arm] Blood Pressure Position Blood Pressure Position [Right Arm] Pulse Oximetry 100 100 97 Oxygen Delivery Method Oxygen Flow Rate Sepsis Recent Fever Within 48 Hours Sepsis New/Unexplained Change in Mental Status Sepsis Action Taken by Nursing 01/24/22 18:16 01/24/22 18:20 01/24/22 18:30 Temperature Temperature Source Pulse Rate 111 H 110 H 108 H Pulse Rate [Apical] Pulse Rate from SpO2 Sensor 111 H 110 H 110 H Pulse Rhythm Pulse Rhythm [Apical] Respiratory Rate 26 H 27 H 26 H Respiratory Effort / Characteristics Respiratory Depth Blood Pressure 116/56 L 119/61 Blood Pressure [Right Arm] Blood Pressure Mean 76 80 Blood Pressure Mean [Right Arm] Blood Pressure Position Blood Pressure Position [Right Arm] Pulse Oximetry 89 L 92 91 Oxygen Delivery Method Oxygen Flow Rate Sepsis Recent Fever Within 48 Hours Sepsis New/Unexplained Change in Mental Status Sepsis Action Taken by Nursing 01/24/22 18:40 01/24/22 18:45 01/24/22 18:50 Temperature Temperature Source Pulse Rate 108 H 108 H 108 H Pulse Rate [Apical] Pulse Rate from SpO2 Sensor 109 H 109 H 108 H Pulse Rhythm Pulse Rhythm [Apical] Respiratory Rate 27 H 26 H 27 H Respiratory Effort / Characteristics Respiratory Depth Blood Pressure 107/60 Blood Pressure [Right Arm] Blood Pressure Mean 75 Blood Pressure Mean [Right Arm] Blood Pressure Position Blood Pressure Position [Right Arm] Pulse Oximetry 91 90 91 Oxygen Delivery Method Oxygen Flow Rate Sepsis Recent Fever Within 48 Hours Sepsis New/Unexplained Change in Mental Status Sepsis Action Taken by Nursing 01/24/22 19:00 01/24/22 19:10 01/24/22 19:15 Temperature Temperature Source Pulse Rate 105 H 107 H 106 H Pulse Rate [Apical] 107 H Pulse Rate from SpO2 Sensor 105 H 105 H 106 H Pulse Rhythm Pulse Rhythm [Apical] Irregular Respiratory Rate 23 27 H 27 H Respiratory Effort / Characteristics Non-Labored Respiratory Depth Normal Blood Pressure 120/51 L 109/54 L Blood Pressure [Right Arm] 108/60 Blood Pressure Mean 74 72 Blood Pressure Mean [Right Arm] 76 Blood Pressure Position Blood Pressure Position [Right Arm] Lying Pulse Oximetry 90 92 93 Oxygen Delivery Method Oxymask Oxygen Flow Rate 10 Sepsis Recent Fever Within 48 Hours Sepsis New/Unexplained Change in Mental Status Sepsis Action Taken by Nursing 01/24/22 19:20 01/24/22 19:30 01/24/22 19:40 Temperature Temperature Source Pulse Rate 108 H 112 H 112 H Pulse Rate [Apical] Pulse Rate from SpO2 Sensor 108 H 111 H 111 H Pulse Rhythm Pulse Rhythm [Apical] Respiratory Rate 27 H 20 30 H Respiratory Effort / Characteristics Non-Labored Respiratory Depth Blood Pressure 120/52 L Blood Pressure [Right Arm] Blood Pressure Mean 74 Blood Pressure Mean [Right Arm] Blood Pressure Position Blood Pressure Position [Right Arm] Pulse Oximetry 94 90 94 Oxygen Delivery Method Oxymask Oxygen Flow Rate 10 Sepsis Recent Fever Within 48 Hours Sepsis New/Unexplained Change in Mental Status Sepsis Action Taken by Nursing 01/24/22 19:45 01/24/22 19:50 01/24/22 20:00 Temperature Temperature Source Pulse Rate 111 H 107 H 112 H Pulse Rate [Apical] Pulse Rate from SpO2 Sensor 108 H 108 H 110 H Pulse Rhythm Pulse Rhythm [Apical] Respiratory Rate 29 H 27 H 23 Respiratory Effort / Characteristics Non-Labored Respiratory Depth Blood Pressure 104/57 L 111/55 L Blood Pressure [Right Arm] Blood Pressure Mean 72 73 Blood Pressure Mean [Right Arm] Blood Pressure Position Blood Pressure Position [Right Arm] Pulse Oximetry 95 94 90 Oxygen Delivery Method Oxymask Oxygen Flow Rate 10 Sepsis Recent Fever Within 48 Hours Sepsis New/Unexplained Change in Mental Status Sepsis Action Taken by Nursing 01/24/22 20:10 01/24/22 20:15 01/24/22 20:20 Temperature Temperature Source Pulse Rate 114 H 109 H 108 H Pulse Rate [Apical] Pulse Rate from SpO2 Sensor 110 H 109 H 104 H Pulse Rhythm Pulse Rhythm [Apical] Respiratory Rate 22 26 H 28 H Respiratory Effort / Characteristics Respiratory Depth Blood Pressure 121/54 L Blood Pressure [Right Arm] Blood Pressure Mean 76 Blood Pressure Mean [Right Arm] Blood Pressure Position Blood Pressure Position [Right Arm] Pulse Oximetry 91 92 90 Oxygen Delivery Method Oxygen Flow Rate Sepsis Recent Fever Within 48 Hours Sepsis New/Unexplained Change in Mental Status Sepsis Action Taken by Nursing 01/24/22 20:30 01/24/22 20:40 01/24/22 20:45 Temperature Temperature Source Pulse Rate 109 H 108 H 107 H Pulse Rate [Apical] Pulse Rate from SpO2 Sensor 106 H 109 H 101 H Pulse Rhythm Pulse Rhythm [Apical] Respiratory Rate 28 H 27 H 24 Respiratory Effort / Characteristics Non-Labored Respiratory Depth Blood Pressure 118/57 L 105/57 L Blood Pressure [Right Arm] Blood Pressure Mean 77 73 Blood Pressure Mean [Right Arm] Blood Pressure Position Blood Pressure Position [Right Arm] Pulse Oximetry 91 90 90 Oxygen Delivery Method Room Air Oxygen Flow Rate Sepsis Recent Fever Within 48 Hours Sepsis New/Unexplained Change in Mental Status Sepsis Action Taken by Nursing 01/24/22 21:00 Temperature Temperature Source Pulse Rate Pulse Rate [Apical] 107 H Pulse Rate from SpO2 Sensor Pulse Rhythm Pulse Rhythm [Apical] Respiratory Rate Respiratory Effort / Characteristics Respiratory Depth Blood Pressure Blood Pressure [Right Arm] Blood Pressure Mean Blood Pressure Mean [Right Arm] Blood Pressure Position Blood Pressure Position [Right Arm] Pulse Oximetry Oxygen Delivery Method Oxygen Flow Rate Sepsis Recent Fever Within 48 Hours Sepsis New/Unexplained Change in Mental Status Sepsis Action Taken by Nursing CONSTITUTIONAL/VITAL SIGNS: Reviewed / noted above. GENERAL: Non-toxic in appearance. INTEGUMENTARY: Warm, dry, and [place]. HEAD: Normocephalic. EYES: without scleral icterus or trauma. ENT/OROPHARYNX: clear and moist. LYMPHADENOPATHY/NECK: Is supple without lymphadenopathy or meningismus. RESPIRATORY: Diminished bilaterally left greater than right. No increased work of breathing. CARDIOVASCULAR: Regular rate and rhythm. GI/ABDOMEN: Soft and nontender. No organomegaly or pulsatile mass. EXTREMITIES: Warm and well perfused. BACK: No CVA tenderness. NEUROLOGICAL: Intact without focal deficits. PSYCHIATRIC: normal affect. MUSCULOSKELETAL: Normally developed with good muscle tone. TRIAGE NURSING DOCUMENTATION REVIEWED. Course Administered Medications Methylprednisolone (Methylprednisolone 40 Mg/Ml Vial) 40 mg IV TID [facility] Stop: 02/23/22 20:59 Last Admin: 01/24/22 21:11 Dose: 40 mg Documented by: [id number] Miscellaneous Information (Vancomycin Consult Active) 1 ea N/A UD PRN PRN Reason: Consult Stop: 02/23/22 16:13 Last Admin: 01/24/22 16:36 Dose: 1 ea Documented by: [id number] Discontinued Medications Albuterol (Albut/Ipratrop 3mg/0.5mg Neb 3 Ml Vial) 3 ml NEB NOW STA; Protocol Stop: 01/24/22 18:35 Last Admin: 01/24/22 18:46 Dose: 3 ml Documented by: [id number] Vancomycin HCl 2,000 mg/ (Sodium Chloride) 540 mls @ 200 mls/hr IV NOW STA Stop: 01/24/22 18:43 Last Admin: 01/24/22 16:49 Dose: 200 mls/hr Documented by: [id number] Sodium Chloride (Nss 1000ml) 1,000 mls @ 999 mls/hr IV .Q1H1M OMID Stop: 01/24/22 17:15 Last Infusion: 01/24/22 17:52 Dose: 0 mls/hr Documented by: [id number] Admin: 01/24/22 16:36 Dose: 999 mls/hr Documented by: [id number] Sodium Chloride (Nss 1000ml) 1,000 mls @ 999 mls/hr IV .Q1H1M OMID Stop: 01/24/22 18:15 Last Infusion: 01/24/22 18:18 Dose: 0 mls/hr Documented by: [id number] Admin: 01/24/22 17:06 Dose: 999 mls/hr Documented by: [id number] Cefepime HCl (Maxipime) 2,000 mg in 20 mls @ 5 mls/min IV NOW STA; Protocol Stop: 01/24/22 16:17 Last Admin: 01/24/22 16:49 Dose: 5 mls/min Documented by: [id number] Medical Decision Making Differential Diagnosis The differential was considered includes acute myocardial infarction, acute coronary syndrome, myocarditis, pericarditis, pericardial effusions /tamponad, esophageal perforation, pulmonary embolism, pneumonia, pneumothorax, cardiomyopathy, congestive heart, anemia , COPD/asthma exacerbation. Medical Records Attestation: I reviewed the patient's medical records. Home Medications Current Medication List: was personally reviewed by me Laboratory Data Attestation: I reviewed the patient's lab results. Result diagrams: 01/24/22 16:20 01/24/22 16:20 Lab Results 01/24/22 01/24/22 01/24/22 Range/Units 16:20 16:20 16:20 WBC 12.68 H (4.8-10.8) K/uL RBC 3.55 L (4.7-6.1) M/uL Hgb 11.3 L (14.0-18.0) g/dL Hct 35.1 L (42-52) % MCV 98.9 (80-100) fL MCH 31.8 (25-34) pg MCHC 32.2 (32-36) g/dL RDW Std Deviation 61.8 H (36.4-46.3) fL RDW Coeff of Jairon 17.2 H (11.5-14.5) % Plt Count 153 (130-400) K/uL MPV 11.8 H (7.4-10.4) fL Immature Gran % (Auto) 0.9 % Neut % (Auto) 85.1 % Lymph % (Auto) 7.3 % [place] % (Auto) 6.5 % Eos % (Auto) 0.2 % Baso % (Auto) 0.0 % Neut # (Auto) 10.78 H (1.4-6.5) K/uL Lymph # (Auto) 0.93 L (1.2-3.4) K/uL [place] # (Auto) 0.82 H (0.11-0.59) K/uL Eos # (Auto) 0.03 (0-0.5) K/uL Baso # (Auto) 0.00 (0-0.2) K/uL Immature Gran # (Auto) 0.12 H (0.00-0.02) K/uL PT INR APTT PTT Ratio Sodium 136 (136-145) mmol/L Potassium 4.2 (3.5-5.1) mmol/L Chloride 104 (98-107) mmol/L Carbon Dioxide 24 (21-32) mmol/L Anion Gap 8 (3-11) BUN 16 (6-23) mg/dl Creatinine 1.28 (0.6-1.4) mg/dl Est Cr Clr Drug Dosing 47.0 ml/min Est GFR ( Amer) 60.0 ml/min Est GFR (Non-Af Amer) 51.8 ml/min BUN/Creatinine Ratio 12.5 (10-20) Glucose 174 H (70-99(Fasting)) mg/dl Lactate (0.4-2.0) mmol/L Calcium 8.2 L (8.5-10.1) mg/dl Magnesium 1.6 L (1.7-2.4) mg/dl Total Bilirubin 0.7 (0.2-1.0) mg/dl AST 22 (13-39) U/L ALT 27 (7-52) U/L Alkaline Phosphatase 98 (34-104) U/L Troponin I < 0.03 (0-0.04) ng/ml Total Protein 7.2 (6.0-8.3) gm/dl Albumin 3.4 (3.4-5.0) gm/dl Globulin 3.8 (2.5-4.0) gm/dl Albumin/Globulin Ratio 0.9 (0.9-2) Procalcitonin 0.11 (0-0.5) ng/ml Nasal Screen MRSA (PCR) (Negative) SARS-CoV-2, RNA, NAAT (NEGATIVE) 01/24/22 01/24/22 01/24/22 Range/Units 16:20 16:20 16:45 WBC (4.8-10.8) K/uL RBC (4.7-6.1) M/uL Hgb (14.0-18.0) g/dL Hct (42-52) % MCV (80-100) fL MCH (25-34) pg MCHC (32-36) g/dL RDW Std Deviation (36.4-46.3) fL RDW Coeff of Jairon (11.5-14.5) % Plt Count (130-400) K/uL MPV (7.4-10.4) fL Immature Gran % (Auto) % Neut % (Auto) % Lymph % (Auto) % [place] % (Auto) % Eos % (Auto) % Baso % (Auto) % Neut # (Auto) (1.4-6.5) K/uL Lymph # (Auto) (1.2-3.4) K/uL [place] # (Auto) (0.11-0.59) K/uL Eos # (Auto) (0-0.5) K/uL Baso # (Auto) (0-0.2) K/uL Immature Gran # (Auto) (0.00-0.02) K/uL PT Cancelled INR Cancelled APTT Cancelled PTT Ratio Cancelled Sodium (136-145) mmol/L Potassium (3.5-5.1) mmol/L Chloride (98-107) mmol/L Carbon Dioxide (21-32) mmol/L Anion Gap (3-11) BUN (6-23) mg/dl Creatinine (0.6-1.4) mg/dl Est Cr Clr Drug Dosing ml/min Est GFR ( Amer) ml/min Est GFR (Non-Af Amer) ml/min BUN/Creatinine Ratio (10-20) Glucose (70-99(Fasting)) mg/dl Lactate 1.5 (0.4-2.0) mmol/L Calcium (8.5-10.1) mg/dl Magnesium (1.7-2.4) mg/dl Total Bilirubin (0.2-1.0) mg/dl AST (13-39) U/L ALT (7-52) U/L Alkaline Phosphatase (34-104) U/L Troponin I (0-0.04) ng/ml Total Protein (6.0-8.3) gm/dl Albumin (3.4-5.0) gm/dl Globulin (2.5-4.0) gm/dl Albumin/Globulin Ratio (0.9-2) Procalcitonin (0-0.5) ng/ml Nasal Screen MRSA (PCR) (Negative) SARS-CoV-2, RNA, NAAT NEGATIVE (NEGATIVE) 01/24/22 01/24/22 Range/Units 17:00 17:09 WBC (4.8-10.8) K/uL RBC (4.7-6.1) M/uL Hgb (14.0-18.0) g/dL Hct (42-52) % MCV (80-100) fL MCH (25-34) pg MCHC (32-36) g/dL RDW Std Deviation (36.4-46.3) fL RDW Coeff of Jairon (11.5-14.5) % Plt Count (130-400) K/uL MPV (7.4-10.4) fL Immature Gran % (Auto) % Neut % (Auto) % Lymph % (Auto) % [place] % (Auto) % Eos % (Auto) % Baso % (Auto) % Neut # (Auto) (1.4-6.5) K/uL Lymph # (Auto) (1.2-3.4) K/uL [place] # (Auto) (0.11-0.59) K/uL Eos # (Auto) (0-0.5) K/uL Baso # (Auto) (0-0.2) K/uL Immature Gran # (Auto) (0.00-0.02) K/uL PT 13.0 H INR 1.2 H APTT 31.5 H PTT Ratio 1.1 Sodium (136-145) mmol/L Potassium (3.5-5.1) mmol/L Chloride (98-107) mmol/L Carbon Dioxide (21-32) mmol/L Anion Gap (3-11) BUN (6-23) mg/dl Creatinine (0.6-1.4) mg/dl Est Cr Clr Drug Dosing ml/min Est GFR ( Amer) ml/min Est GFR (Non-Af Amer) ml/min BUN/Creatinine Ratio (10-20) Glucose (70-99(Fasting)) mg/dl Lactate (0.4-2.0) mmol/L Calcium (8.5-10.1) mg/dl Magnesium (1.7-2.4) mg/dl Total Bilirubin (0.2-1.0) mg/dl AST (13-39) U/L ALT (7-52) U/L Alkaline Phosphatase (34-104) U/L Troponin I (0-0.04) ng/ml Total Protein (6.0-8.3) gm/dl Albumin (3.4-5.0) gm/dl Globulin (2.5-4.0) gm/dl Albumin/Globulin Ratio (0.9-2) Procalcitonin (0-0.5) ng/ml Nasal Screen MRSA (PCR) Negative (Negative) SARS-CoV-2, RNA, NAAT (NEGATIVE) Imaging Data Radiologist's Impression: Chest X-Ray 01/24/22 16:15 XR chest 1V portable CLINICAL HISTORY: SEPSIS COMPARISON STUDY: Chest CT November 07, 2020. Chest radiograph November 22, 2020. FINDINGS: Right humeral internal fixation hardware is partially imaged. Small left and trace right pleural effusions are noted. These are similar to prior exam. Cardiomegaly is unchanged. Note is again made of numerous calcified pleural plaques. Left-sided bulla are depicted on prior chest CT. Interstitial thickening and bilateral opacities are similar to prior exams. IMPRESSION: No change in appearance of the chest. Small left and trace right pleural effusions with interstitial thickening and bilateral opacities, as described above. Although stable, mild pulmonary edema or an infectious process would be difficult to exclude. ACT 112: Negative or not required by law. Electronically signed by: Luis Alberto Echevarria M.D. 01/24/2022 4:46 PM ECG Data Attestation: I personally reviewed and interpreted this ECG as follows: Additional Comments: Twelve-lead EKG: Per my interpretation shows a sinus rhythm at a rate of 124 with a left bundle branch block that appears to be new. No PVCs. Normal QTC. No ST elevations. MDM Narrative 81-year-old male presents with shortness of breath, recent fever and a cough as well as hypoxia. The patient was given a DuoNeb treatment as well as IV Zofran and p.o. Tylenol by EMS prior to arrival. He was empirically treated with IV antibiotics, cefepime and vancomycin. He was also given 2 L of fluid for possible sepsis. He required 15 L of oxygen initially upon his arrival via facemask. His lung sounds are diminished bilaterally left greater than right. Does not appear to be in significant respiratory distress and is able to answer questions in full sentences. The white blood cell count is mildly elevated. The CBC and chemistry panel was otherwise unremarkable. Troponin is negative. Lactate is normal. Based on the patient's significant hypoxia despite his norm al oxygen requirement at home, as well as fever and infectious symptoms likely related to a pneumonia, the patient will be seen by the hospitalist for further inpatient evaluation and care. Impression & Plan Hypoxia, Pneumonia Discharge Plan Visit Data Chief Complaint: Shortness of Breath/Dyspnea ED Provider: Diego Paulson Discharge Problem: Hypoxia, Pneumonia Patient Disposition: Being Evaluated by Hospitalist Forms Stand Alone Forms: [facility], Virtual Emergency Department, Important Visit Information Prescriptions Prescriptions: No Action Dulera 200-5 mcg/actuation HFA aerosol inhaler 2 puff inhalation BID Qty: 1 RF: 3 clopidogrel 75 mg tablet 75 mg PO DAILY RF: 0 albuterol sulfate [Ventolin HFA] 90 mcg/actuation HFA aerosol inhaler 2 puff INHALATION Q6 PRN (Reason: Shortness Of Breath Or Wheezing) RF: 0 diphenhydramine HCl [Banophen] 50 mg Capsule 50 mg PO Q8 PRN (Reason: allergies) RF: 0 ondansetron 4 mg tablet,disintegrating 4 mg PO Q4 PRN (Reason: Nausea And Vomiting) RF: 0 Barrier Cream 1 applic topical QID RF: 0 rosuvastatin [Crestor] 20 mg Tablet 20 mg PO QAM Qty: 30 RF: 0 amiodarone 200 mg Tablet 200 mg PO QAM Qty: 5 RF: 0 lansoprazole [Prevacid SoluTab] 30 mg Tablet,Disintegrat, Delay Rel 30 mg PO QAM Qty: 5 RF: 0 metoprolol tartrate 25 mg Tablet 25 mg PO BID Qty: 10 RF: 0 Spiriva with HandiHaler 18 mcg capsule, w/inhalation device See Rx Instructions .ROUTE .COMPLEX Qty: 5 RF: 3 tramadol 50 mg tablet 50 mg PO Q6 PRN (Reason: Pain) RF: 0 hydrocortisone 1 % Cream 1 applic TOPICAL BID RF: 0 Eliquis 5 mg tablet 5 mg PO BID RF: 0 sertraline 50 mg tablet 50 mg PO DAILY RF: 0 [facility] -
[2022-01-24 16:34] LABS: Eosinophils # (auto) 0.03 K/uL (0-0.5); Eosinophils % (auto) 0.2 %; Hematocrit (blood only) 35.1 % (42-52); Hemoglobin 11.3 g/dL (14.0-18.0); Immature Granulocytes # (auto) 0.12 K/uL (0.00-0.02); Immature Granulocytes % (auto) 0.9 %; Lymphocytes # (auto) 0.93 K/uL (1.2-3.4); Lymphocytes % (auto) 7.3 %; Mean Corpuscular Hemoglobin 31.8 pg (25-34); Mean Corpuscular Hgb Conc 32.2 g/dL (32-36); Mean Corpuscular Volume 98.9 fL (80-100); Mean Platelet Volume 11.8 fL (7.4-10.4); Monocytes # (auto) 0.82 K/uL (0.11-0.59); Monocytes % (auto) 6.5 %; Neutrophils # (auto) 10.78 K/uL (1.4-6.5); Neutrophils % (auto) 85.1 %; Platelet Count 153 K/uL (130-400); RDW Coefficient of Variation 17.2 % (11.5-14.5); RDW Standard Deviation 61.8 fL (36.4-46.3); Red Blood Count 3.55 M/uL (4.7-6.1); White Blood Count 12.68 K/uL (4.8-10.8)
--- NOTE | 2022-01-24 16:48 | XRay Report ---
XR chest 1V portable CLINICAL HISTORY: SEPSIS COMPARISON STUDY: Chest CT November 07, 2020. Chest radiograph November 22, 2020. FINDINGS: Right humeral internal fixation hardware is partially imaged. Small left and trace right pl eural effusions are noted. These are similar to prior exam. Cardiomegaly is unchanged. Note is again made of numerous calcified pleural plaques. Left-sided bulla are depicted on prior chest CT. Intersti tial thickening and bilateral opacities are similar to prior exams. IMPRESSION: No change in appearance of the chest. Small left and trace right pleural effusions with interstitial thickening and bilateral opacities, as described above. Although stable, mild pulmonary edema or an infectious process would be difficult to exclude. ACT 112: Negative or not required by law. Electronically signed by: Luis Alberto Echevarria M.D. 01/24/2022 4:46 PM
[2022-01-24 17:05] LABS: Troponin I < 0.03 ng/ml (0-0.04)
[2022-01-24 17:29] LABS: Alanine Aminotransferase 27 U/L (7-52); Albumin Globulin Ratio 0.9 (0.9-2); Albumin Level 3.4 gm/dl (3.4-5.0); Alkaline Phosphatase 98 U/L (34-104); Anion Gap 8 (3-11); Aspartate Aminotransferase 22 U/L (13-39); BUN Creatinine Ratio 12.5 (10-20); Bilirubin,Total 0.7 mg/dl (0.2-1.0); Blood Urea Nitrogen 16 mg/dl (6-23); Calcium 8.2 mg/dl (8.5-10.1); Carbon Dioxide 24 mmol/L (21-32); Chloride 104 mmol/L (98-107); Est GFR (Non-African American) 51.8 ml/min; Globulin 3.8 gm/dl (2.5-4.0); Glucose 174 mg/dl (70-99(Fasting)); Magnesium 1.6 mg/dl (1.7-2.4); Potassium 4.2 mmol/L (3.5-5.1); Sodium 136 mmol/L (136-145); Total Protein 7.2 gm/dl (6.0-8.3)
[2022-01-24 17:49] LABS: INR 1.2 (0.9-1.1); Partial Thromboplastin Ratio 1.1; Partial Thromboplastin Time 31.5 Seconds (21.0-31.0)
[2022-01-24] MEDS ORDERED: ALBUT/IPRATROP 3MG/0.5MG NEB 3 ML VIAL NEB STA (18:34)
[2022-01-24] MEDS ORDERED: MAGNESIUM SULFATE / D5W 1 GM/100 ML BAG IV STA (21:01)
--- NOTE | 2022-01-24 21:45 | History and Physical Report ---
DATE OF ADMISSION: 01/24/2022. CHIEF COMPLAINT: Shortness of breath, hypoxia. HISTORY OF PRESENT ILLNESS: This is an 81-year-old male with past medical history significant for COPD, asbestosis, on home oxygen 3 liters, CAD, history of paroxysmal atrial fibrillation, on Eliquis, history of CVA, hypertension, diabetes - diet controlled, hyperlipidemia, chronic anemia, baseline hemoglobin 9-10, history of past tobacco abuse. The patient is coming from [facility] with shortness of breath. The patient developed some nausea, vomiting this morning and then progressively felt short of breath over there. He is usually on 3 liters, was saturates 70% on 3 liters. Even with 5 liters, saturation was not coming up and EMS was called. He was given Zofran and also he had some temperature spike, also given some Tylenol and was brought into the hospital. Initially, he was placed on a nonrebreather, currently tapered down to facemask. He is able to answer all questions. Daughter is in the room. Feeling short of breath and developed some cough today. Neligh chills, but no fever, no chest pain. Currently, nausea is improved. No abdominal pain, no diarrhea. Normal bladder movements. No swelling in the legs. No headache, no blurred visions, no earache, no runny nose, no sore throat. Generally, he is on a regular diet and swallows okay. The patient had 3 COVID shots. He uses an electric wheelchair. He can ambulate upto the electric wheelchair, but he cannot ambulate too far. Currently slightly tachycardic, but is improving. ALLERGIES: DILTIAZEM, TELMISARTAN. PAST MEDICAL HISTORY: As mentioned above. PAST SURGICAL HISTORY: Bowel surgery. FAMILY HISTORY: Significant for esophageal cancer, kidney cancer, COPD. SOCIAL HISTORY: Positive tobacco use. Occasional alcohol. 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 REVIEW OF SYSTEMS: As per HPI. Rest of the review of systems is negative. MEDICATIONS: The patient is on albuterol 2 puffs inhalation q.6 hours p.r.n., amiodarone 200 mg p.o. a.m., Plavix 75 mg p.o. daily, diphenhydramine 50 mg p.o. q.8 hours p.r.n., Eliquis 5 mg p.o. b.i.d., Prevacid 30 mg p.o. a.m., metoprolol tartrate 25 mg p.o. b.i.d., mometasone-formoterol HFA 2 puffs inhalation b.i.d., Zofran 4 mg p.o. q.4 hours p.r.n., Crestor 20 mg p.o. a.m., sertraline 50 mg p.o. daily, Spiriva inhaler 1 puff daily, tramadol 50 mg p.o. q.6 hours p.r.n. PHYSICAL EXAMINATION: GENERAL: The patient is on facemask, not in acute distress. VITAL SIGNS: Temperature 37, pulse 107, respiratory rate 24, blood pressure 105/57, oxygen 90% on facemask. HEENT: Pupils equal, round and reactive to light. No pallor, no icterus. Oral mucosa moist. NECK: No JVD. No neck masses. CARDIOVASCULAR: S1 and S2 heard. Regular rate and rhythm. No murmur, no gallop. RESPIRATORY SYSTEM: Normal AP diameter. No accessory muscle use. Mild bibasilar rhonchi and mild expiratory wheezing. ABDOMEN: Soft, bowel sounds present, nontender, no distention. CENTRAL NERVOUS SYSTEM: Cranial nerves II through XII are grossly intact, nonfocal. EXTREMITIES: No edema, no erythema. LABORATORY DATA: WBC 12.6, hemoglobin 11.3, hematocrit 35.1, platelets 153. PT 13, INR 1.1, APTT 31.5. Sodium 136, potassium 4.2, chloride 104, bicarbonate 24, BUN 16, creatinine 1.2, serum glucose 174, lactate 1.5, calcium 8.2, magnesium 1.6, total bilirubin 0.7, AST 22, ALT 27, alkaline phosphatase 98. Troponin I less than 0.03. Procalcitonin 0.11. MRSA screen negative. SARS-CoV-2 RNA negative. IMAGING: Chest x-ray: No change in appearance of chest. Small left and trace right pleural effusion with interstitial thickening and bilateral opacities, pulmonary edema or infectious process would be difficult to exclude. EKG: Tachycardia at 124, left bundle-branch block, QTc at 540. ASSESSMENT AND PLAN: This is an 81-year-old male who presents with acute on chronic respiratory failure. 1. Acute on chronic respiratory failure, history of chronic obstructive pulmonary disease, asbestosis, chronically on oxygen 3 liters, had mild wheezing and rhonchi on exam. Symptoms started after vomiting, possible aspiration pneumonia playing the role. He also has a history of sleep apnea, but since last one year is not using CPAP. We will place him on BiPAP in the nighttime. Continue with Solu-Medrol 40 t.i.d. and nebulizers around the clock and p.r.n. . Emergency Room started on vancomycin. We will continue with doxycyline and Zosyn for possible aspiration pneumonitis. Methicillin-resistant Staphylococcus aureus screen is negative. Closely monitor in the telemetry floor. 2. Diabetes, not on any medication. We will place him on insulin sliding scale, follow the blood sugars, follow HbA1c levels. 3. History of atrial fibrillation, on amiodarone, metoprolol and Eliquis. EKG shows some wide complex tachycardia. We will repeat the EKG and closely monitor in the telemetry. 4. History of embolic cerebrovascular accident, on Plavix, Eliquis, statin. 5. History of hypertension, on metoprolol. We will monitor the blood pressure. 6. History of depression, on sertraline. 7. History of hyperlipidemia, on statin. 8. History of chronic kidney disease stage III, presents with a creatinine of 1.2. We will follow the laboratories. 9. Prolonged Qt. To avoid qt prolonging drugs. Follow ekg. 10. Deep venous thrombosis prophylaxis, on Eliquis. DISPOSITION: Admit to tele floor. PT/OT prior to discharge. Social service to help with discharge planning. Transfer back to [facility] when stable. CODE STATUS: Full code only if there is a chance of recovery as per discussion with the patient.. Job ID: [id number] MTDD
[2022-01-24] MEDS ORDERED: PROMETHAZINE HCL 12.5 MG in SODIUM CHLORIDE 0.9% 50 ML IV PRN (22:15)
[2022-01-24] MEDS ORDERED: PIPERACILL/TAZOBAC CONSULT ACTIVE PRN (22:15)
[2022-01-24] MEDS ORDERED: NITROGLYCERIN SL 0.4 MG/TAB TAB SL PRN (22:15)
[2022-01-24] MEDS ORDERED: ALBUTEROL HFA 8 GM INHALER INH PRN (22:15)
[2022-01-24] MEDS ORDERED: traMADol HCL 50 MG TABLET PO PRN (22:15)
[2022-01-24] MEDS ORDERED: POLYETHYLENE (MIRALAX) 17 GM PACK PO PRN (22:15)
[2022-01-24] MEDS ORDERED: ACETAMINOPHEN 325 MG TAB PO PRN (22:15)
[2022-01-24] MEDS ORDERED: CARBOHYDRATES FOR HYPOGLYCEMIA PO PRN (22:45)
[2022-01-24] MEDS ORDERED: GLUCOSE 10 TABS/TUBE PO PRN (22:45)
[2022-01-24] MEDS ORDERED: DEXTROSE 50% 50 ML SYRINGE IV PRN (22:45)
[2022-01-24] MEDS ORDERED: GLUCOSE 40% GEL 15 GM TUBE PO PRN (22:45)
[2022-01-24] MEDS ORDERED: GLUCAGON FOR INJ 1 MG VIAL IM PRN (22:45)
[2022-01-24] MEDS: LEVALBUTEROL 1.25MG/0.5ML NEB INH SCH (22:47)
[2022-01-24] MEDS: IPRATROPIUM BROMIDE NEB SOLN 0.02% 2.5 ML VIAL INH SCH (22:47)
[2022-01-24] MEDS ORDERED: PIPERACILLIN/TAZOBACTAM 4.5 GM in DEXTROSE 5% 100 ML IV ONE (23:00)
[2022-01-25] MEDS: LEVALBUTEROL 1.25MG/0.5ML NEB INH SCH ×4 (00:08→18:54)
[2022-01-25] MEDS: IPRATROPIUM BROMIDE NEB SOLN 0.02% 2.5 ML VIAL INH SCH ×4 (00:08→18:54)
[2022-01-25] MEDS: APIXABAN 5 MG TABLET PO SCH ×3 (00:28→20:39)
[2022-01-25] MEDS: METOPROLOL TARTRATE 25 MG TAB PO SCH ×3 (00:28→20:41)
[2022-01-25] MEDS: INSULIN ASPART PER UNIT SC SCH ×5 (00:33→20:39)
[2022-01-25] MEDS ORDERED: XOPENEX/ATROVENT 1.25mg/0.5MG NEB COMBO NEB SCH (01:00)
--- NOTE | 2022-01-25 02:34 | Pharmacy Report ---
Pharmacy Abx Initial Consult - Date of Service January 25, 2022 - Pharmacy Dosing Scope Date of Consult: 01/24/22 Consultation requested by: Dr. Lucas Pharmacy is consulted to initiate Vancomycin/Zosyn IV dosing therapy, order appropriate labs and adjust drug dose/frequency. - Subjective The patient is a 81 year old M admitted on 01/24/22 20:34. - Objective Height: 5 ft 7 in Weight: 83.756 kg Vital Signs (Past 12hrs): Vital Signs Temp Pulse Pulse Resp BP BP Pulse Ox 01/25/22 01:28 112 H 01/25/22 01:24 111 H 01/24/22 23:43 36.5 C 97 H 23 116/60 94 01/24/22 22:48 103 H 25 H 90 01/24/22 22:25 90 01/24/22 22:15 01/24/22 22:09 38.4 C H 108 H 32 H 118/51 L 88 L 01/24/22 21:50 104 H 24 108/57 L 89 L 01/24/22 21:00 107 H 01/24/22 20:45 107 H 24 105/57 L 90 01/24/22 20:40 108 H 27 H 90 01/24/22 20:30 109 H 28 H 118/57 L 91 01/24/22 20:20 108 H 28 H 90 01/24/22 20:15 109 H 26 H 121/54 L 92 01/24/22 20:10 114 H 22 91 01/24/22 20:00 112 H 23 111/55 L 90 01/24/22 19:50 107 H 27 H 94 01/24/22 19:45 111 H 29 H 104/57 L 95 01/24/22 19:40 112 H 30 H 94 01/24/22 19:30 112 H 20 120/52 L 90 01/24/22 19:20 108 H 27 H 94 01/24/22 19:15 106 H 27 H 109/54 L 93 01/24/22 19:10 107 H 27 H 92 01/24/22 19:00 105 H 107 H 23 120/51 L 108/60 90 01/24/22 18:50 108 H 27 H 91 01/24/22 18:45 108 H 26 H 107/60 90 01/24/22 18:40 108 H 27 H 91 01/24/22 18:30 108 H 26 H 119/61 91 01/24/22 18:20 110 H 27 H 92 01/24/22 18:16 111 H 26 H 116/56 L 89 L 01/24/22 18:10 111 H 31 H 97 01/24/22 18:00 110 H 28 H 115/54 L 100 01/24/22 17:50 110 H 28 H 100 01/24/22 17:45 110 H 27 H 111/55 L 100 01/24/22 17:40 112 H 21 100 01/24/22 17:30 116 H 28 H 115/55 L 100 01/24/22 17:20 124 H 31 H 99 01/24/22 17:16 122 H 20 114/54 L 100 01/24/22 17:15 120 H 27 H 114/54 L 100 01/24/22 17:10 123 H 21 100 01/24/22 17:00 124 H 29 H 97/64 L 99 01/24/22 16:50 126 H 25 H 100 01/24/22 16:47 130 H 22 108/63 100 01/24/22 16:40 125 H 31 H 99 01/24/22 16:36 37.0 C 129 H 122 H 24 141/73 H 141/73 H 100 01/24/22 16:30 122 H 27 H 100 01/24/22 16:20 121 H 31 H 100 01/24/22 16:11 123 H 36 H 100 Pulse Ox 01/25/22 01:28 01/25/22 01:24 01/24/22 23:43 01/24/22 22:48 01/24/22 22:25 01/24/22 22:15 90 01/24/22 22:09 01/24/22 21:50 01/24/22 21:00 01/24/22 20:45 01/24/22 20:40 01/24/22 20:30 01/24/22 20:20 01/24/22 20:15 01/24/22 20:10 01/24/22 20:00 01/24/22 19:50 01/24/22 19:45 01/24/22 19:40 01/24/22 19:30 01/24/22 19:20 01/24/22 19:15 01/24/22 19:10 01/24/22 19:00 01/24/22 18:50 01/24/22 18:45 01/24/22 18:40 01/24/22 18:30 01/24/22 18:20 01/24/22 18:16 01/24/22 18:10 01/24/22 18:00 01/24/22 17:50 01/24/22 17:45 01/24/22 17:40 01/24/22 17:30 01/24/22 17:20 01/24/22 17:16 01/24/22 17:15 01/24/22 17:10 01/24/22 17:00 01/24/22 16:50 01/24/22 16:47 01/24/22 16:40 01/24/22 16:36 01/24/22 16:30 01/24/22 16:20 01/24/22 16:11 Lab Results (24hrs): Laboratory Tests (24 Hours) 01/24/22 01/24/22 01/24/22 16:20 16:20 16:20 WBC 12.68 H Neut # (Auto) 10.78 H Creatinine 1.28 Est Cr Clr Drug Dosing 47.0 Procalcitonin 0.11 Micro Results: 01/24/22 16:45 Aerobic Blood Culture - Pending Blood Anaerobic Blood Culture - Pending 01/24/22 16:20 Aerobic Blood Culture - Pending Blood Anaerobic Blood Culture - Pending - Risk Factors for Resistance * Resident in a shelter or extended-care facility - Assessment & Plan Assessment 81 year old M admitted with COPD exacerbation, ordered Vanc and Zosyn. Plan Vancomycin IV * Loading dose: 2000 mg (~24 mg/kg) * Maintenance dose: 1000 mg IV (~12 mg/kg) every 18 hours * AUC/ANTON is the preferred PK/PD target for vancomycin * AUC guided dosing is effective and associated with decreased risk of nephrotoxicity compared to traditional trough targets * The above dose is predicted to achieve target AUC/ANTON of 400-600 mg/L.hr and may be associated with a 15 % risk of nephrotoxicity * Will check a level in a few days if Vancomycin is continued. Piperacillin/tazobactam * 4.5 g bolus administered over 30 minutes, then 3.375 g IV extended infusion every 8 hours for CrCl greater than 20 mL/min Pharmacy will continue to follow and will adjust dose/frequency as necessary. Thank you.
[2022-01-25] MEDS: PIPERACILLIN/TAZOBACTAM 3.375 GM in DEXTROSE 5% 100 ML IV SCH ×3 (04:24→21:25)
[2022-01-25 06:04] LABS: Appearance Urine Clear (Clear); Bacteria Urine Automated Negative (Negative); Bilirubin Urine Negative (Negative); Blood Urine Negative (Negative); Color Urine Yellow; Epithelial Cell Urine Auto 20-30 /lpf (0-5); Glucose Urine UA Negative (Negative); Ketones Urine Trace (Negative); Leukocyte Esterase Urine Negative (Negative); Nitrite Urine Negative (Negative); Protein Urine 1+ (Negative); Specific Gravity Urine 1.029 (1.000-1.030); Urobilinogen Urine Negative (Negative)
[2022-01-25 06:16] LABS: Estimated Average Glucose 134 mg/dl; Hemoglobin A1C 6.3 % (4.5-5.6)
[2022-01-25 06:18] LABS: Calcium 7.8 mg/dl (8.5-10.1); Creatinine Clr Calc Pharmacy 42.5 ml/min; Est GFR (African American) 52.5 ml/min; Est GFR (Non-African American) 45.3 ml/min; Potassium 4.3 mmol/L (3.5-5.1)
[2022-01-25 08:00] LABS: Mean Corpuscular Hgb Conc 31.7 g/dL (32-36); Mean Platelet Volume 12.2 fL (7.4-10.4)
[2022-01-25 09:07] LABS: Hematocrit (blood only) 30.3 % (42-52); Hemoglobin 9.6 g/dL (14.0-18.0); Mean Corpuscular Hemoglobin 31.9 pg (25-34); Mean Corpuscular Volume 100.7 fL (80-100); Platelet Count 117 K/uL (130-400); RDW Coefficient of Variation 17.3 % (11.5-14.5); RDW Standard Deviation 63.8 fL (36.4-46.3); Red Blood Count 3.01 M/uL (4.7-6.1); White Blood Count 24.39 K/uL (4.8-10.8)
[2022-01-25 09:08] LABS: Basophils # (auto) 0.01 K/uL (0-0.2); Immature Granulocytes # (auto) 0.22 K/uL (0.00-0.02); Immature Granulocytes % (auto) 0.9 %; Lymphocytes # (auto) 0.37 K/uL (1.2-3.4); Lymphocytes % (auto) 1.5 %; Monocytes # (auto) 0.86 K/uL (0.11-0.59); Monocytes % (auto) 3.5 %; Neutrophils # (auto) 22.93 K/uL (1.4-6.5); Neutrophils % (auto) 94.1 %; Platelet Estimate Decreased (Normal); Polychromasia 1+
--- NOTE | 2022-01-25 09:54 | Electrocardiogram Report ---
Test Reason : Blood Pressure : / mmHG Vent. Rate : 124 BPM Atrial Rate : 127 BPM P-R Int : 000 ms QRS Dur : 136 ms QT Int : 376 ms P-R-T Axes : 000 -15 124 degrees QTc Int : 540 ms Wide QRS tachycardia -- Probably a 2:1 Atrial tachycardia/ Atrial Flutter with an underlying left b undle Left bundle branch block Abnormal ECG When compared with ECG of 22-NOV-2021 19:02, Wide QRS tachycardia has replaced Sinus rhythm Atrial tachycardia is present Confirmed by Jorge Lopez ([id number]) on 01/25/2022 9:54:12 AM Referred By: Fouzia Myers [place] Confirmed By:Jorge Lopez
[2022-01-25] MEDS: methylPREDNISolone 40 MG in SYRINGE 0 ML IV SCH ×3 (10:03→20:40)
[2022-01-25] MEDS: AMIODARONE 200 MG TAB PO SCH (10:03)
[2022-01-25] MEDS: DOXYCYCLINE HYCLATE 100 MG in DEXTROSE 5% 100 ML IV SCH ×2 (10:03→19:23)
[2022-01-25] MEDS: SERTRALINE HCL 50 MG TABLET PO SCH (10:04)
[2022-01-25] MEDS: LANSOPRAZOLE 30 MG SOLTAB PO SCH (10:04)
[2022-01-25] MEDS: ROSUVASTATIN CALCIUM 20 MG TAB PO SCH (10:04)
[2022-01-25] MEDS: CLOPIDOGREL BISULFATE 75 MG TAB PO SCH (10:04)
[2022-01-25] MEDS: FLUTICASONE/VILANTEROL 200/25MCG 14 PUFFS/INHALER INH SCH (10:05)
[2022-01-25] MEDS: UMECLIDINIUM BROMIDE 62.5MCG/BLISTER 7 PUFFS/INHALER INH SCH (10:05)
--- NOTE | 2022-01-25 10:22 | Electrocardiogram Report ---
Test Reason : Blood Pressure : / mmHG Vent. Rate : 080 BPM Atrial Rate : 080 BPM P-R Int : 200 ms QRS Dur : 124 ms QT Int : 428 ms P-R-T Axes : 081 -19 093 degrees QTc Int : 493 ms Normal sinus rhythm Left bundle branch block Abnormal ECG When compared with ECG of 24-JAN-2022 16:06, (unconfirmed) Sinus rhythm has replaced Wide QRS tachycardia Vent. rate has decreased BY 44 BPM Confirmed by Jorge Lopez ([id number]) on 01/25/2022 10:22:30 AM Referred By: Fouzia Myers [place] Confirmed By:Jorge Lopez
[2022-01-25] MEDS ORDERED: VANCOMYCIN HCL 1,000 MG in SODIUM CHLORIDE 0.9% 250 ML IV SCH (12:00)
[2022-01-25] MEDS ORDERED: SODIUM CHLORIDE 0.9% 500 ML IV SCH (12:00)
--- NOTE | 2022-01-25 12:01 | Hospitalist Progress Note ---
Date of Service January 25, 2022 Assessment & Plan (1) Aspiration pneumonia: (2) Respiratory failure, acute and chronic: (3) Asbestosis: (4) Atrial fibrillation: (5) CAD (coronary artery disease): (6) Chronic obstructive pulmonary disease: Plan: This is an 81-year-old male who presents with acute on chronic respiratory failure. 1. Acute on chronic respiratory failure, history of chronic obstructive pulmonary disease, asbestosis, chronically on oxygen 3 liters, had mild wheezing and rhonchi on exam. Symptoms started after vomiting, possible aspiration pneumonia playing the role. He also has a history of sleep apnea, but since last one year is not using CPAP. We will place him on BiPAP in the nighttime. Possible aspiration pneumonia/pneumonitis Continue with Solu-Medrol 40 t.i.d. and nebulizers around the clock and p.r.n. .Empiric antibiotics - Obtain BNP 2. Diabetes, not on any medication. We will place him on insulin sliding scale, follow the blood sugars, follow HbA1c levels.6.3 3. History of atrial fibrillation, on amiodarone, metoprolol and Eliquis. Currently rate controlled 4. History of embolic cerebrovascular accident, on Plavix, Eliquis, statin. 5. History of hypertension, on metoprolol. We will monitor the blood pressure. 6. History of depression, on sertraline. 7. History of hyperlipidemia, on statin. 8. History of chronic kidney disease stage III, presents with a creatinine of 1.2. We will follow the laboratories. 9. Prolonged Qt. To avoid qt prolonging drugs. Follow ekg. 10. Deep venous thrombosis prophylaxis, on Eliquis. DISPOSITION: Admit to tele floor. PT/OT prior to discharge. Social service to help with discharge planning. Transfer back to [facility] when stable. CODE STATUS: Full code only if there is a chance of recovery as per discussion with the patient.. Admission and Anticipated Discharge Date Admission Date: January 24, 2022 Subjective Patient with history of COPD asbestos dust exposure on 3 L nasal cannula at home CAD A. fib CVA. Wheelchair-bound. Presenting with shortness of breath with nausea and vomiting questionable aspiration pneumonia. States he is feeling much better. On facemask. Oxygenation is improving. Nurse at bedside discussed with nurse. Patient states he has no trouble swallowing. Denies choking. Wants to eat. States no further nausea vomiting. Feels well no active complaints. Review of Systems Review of Systems: All systems reviewed and negative other than as described above in the history and physical Physical Exam Physical Exam: GENERAL: The patient is on facemask, not in acute distress. Conversant. CARDIOVASCULAR: S1 and S2 heard. Regular rate and rhythm. No murmur, no gallop. RESPIRATORY SYSTEM: Normal AP diameter. No accessory muscle use. Mild bibasilar rhonchi and mild expiratory wheezing. ABDOMEN: Soft, bowel sounds present, nontender, no distention. Colostomy noted CENTRAL NERVOUS SYSTEM: Cranial nerves II through XII are grossly intact, nonfocal. EXTREMITIES: No edema, no erythema. Results & Data Results & Data ([facility]) Vital Signs (Past 12 Hours) Vital Signs Temp Pulse Pulse Resp BP Pulse Ox 01/25/22 11:10 36.4 C L 69 20 108/58 L 97 01/25/22 08:12 37.1 C 84 18 123/55 L 94 01/25/22 08:00 61 01/25/22 06:59 77 20 99 01/25/22 04:35 36.4 C L 82 20 99/55 L 97 01/25/22 01:28 112 H 01/25/22 01:24 111 H Laboratory Results Short CBC 01/24/22 01/25/22 Range/Units 16:20 05:11 WBC 12.68 H 24.39 H D (4.8-10.8) K/uL Hgb 11.3 L 9.6 L (14.0-18.0) g/dL Hct 35.1 L 30.3 L (42-52) % Plt Count 153 117 L (130-400) K/uL BMP 01/24/22 01/25/22 16:20 05:11 Sodium 136 138 Potassium 4.2 4.3 Chloride 104 108 H Carbon Dioxide 24 24 BUN 16 20 Creatinine 1.28 1.43 H Glucose 174 H 175 H Calcium 8.2 L 7.8 L Cardiac Enzymes 01/24/22 Range/Units 16:20 Troponin I < 0.03 (0-0.04) ng/ml Liver Function 01/24/22 Range/Units 16:20 Total Bilirubin 0.7 (0.2-1.0) mg/dl AST 22 (13-39) U/L ALT 27 (7-52) U/L Alkaline Phosphatase 98 (34-104) U/L Albumin 3.4 (3.4-5.0) gm/dl Urine 01/25/22 Range/Units Unknown Urine Color Yellow Urine Appearance Clear (Clear) Urine pH 5.0 (4.5-7.5) Ur Specific [place] 1.029 (1.000-1.030) Urine Protein 1+ H (Negative) Urine Glucose (UA) Negative (Negative) Diagnostic Findings Laboratory Results WBC 24.39 K/uL (4.8-10.8) H D 01/25/22 05:11 RBC 3.01 M/uL (4.7-6.1) L 01/25/22 05:11 Hgb 9.6 g/dL (14.0-18.0) L 01/25/22 05:11 Hct 30.3 % (42-52) L 01/25/22 05:11 MCV 100.7 fL (80-100) H 01/25/22 05:11 MCH 31.9 pg (25-34) 01/25/22 05:11 MCHC 31.7 g/dL (32-36) L 01/25/22 05:11 RDW Std Deviation 63.8 fL (36.4-46.3) H 01/25/22 05:11 RDW Coeff of Jairon 17.3 % (11.5-14.5) H 01/25/22 05:11 Plt Count 117 K/uL (130-400) L 01/25/22 05:11 MPV 12.2 fL (7.4-10.4) H 01/25/22 05:11 Immature Gran % (Auto) 0.9 % 01/25/22 05:11 Neut % (Auto) 94.1 % 01/25/22 05:11 Lymph % (Auto) 1.5 % 01/25/22 05:11 Knox % (Auto) 3.5 % 01/25/22 05:11 Eos % (Auto) 0.0 % 01/25/22 05:11 Baso % (Auto) 0.0 % 01/25/22 05:11 Neut # (Auto) 22.93 K/uL (1.4-6.5) H 01/25/22 05:11 Lymph # (Auto) 0.37 K/uL (1.2-3.4) L 01/25/22 05:11 Knox # (Auto) 0.86 K/uL (0.11-0.59) H 01/25/22 05:11 Eos # (Auto) 0.00 K/uL (0-0.5) 01/25/22 05:11 Baso # (Auto) 0.01 K/uL (0-0.2) 01/25/22 05:11 Immature Gran # (Auto) 0.22 K/uL (0.00-0.02) H 01/25/22 05:11 Platelet Estimate Decreased (Normal) L 01/25/22 05:11 Polychromasia 1+ 01/25/22 05:11 PT 13.0 Seconds (9.0-12.0) H 01/24/22 17:09 INR 1.2 (0.9-1.1) H 01/24/22 17:09 APTT 31.5 Seconds (21.0-31.0) H 01/24/22 17:09 PTT Ratio 1.1 01/24/22 17:09 Sodium 138 mmol/L (136-145) 01/25/22 05:11 Potassium 4.3 mmol/L (3.5-5.1) 01/25/22 05:11 Chloride 108 mmol/L (98-107) H 01/25/22 05:11 Carbon Dioxide 24 mmol/L (21-32) 01/25/22 05:11 Anion Gap 6 (3-11) 01/25/22 05:11 BUN 20 mg/dl (6-23) 01/25/22 05:11 Creatinine 1.43 mg/dl (0.6-1.4) H 01/25/22 05:11 Est Cr Clr Drug Dosing 42.5 ml/min 01/25/22 05:11 Est GFR ( Amer) 52.5 ml/min 01/25/22 05:11 Est GFR (Non-Af Amer) 45.3 ml/min 01/25/22 05:11 BUN/Creatinine Ratio 14.0 (10-20) 01/25/22 05:11 Glucose 175 mg/dl (70-99(Fasting)) H 01/25/22 05:11 POC Glucose 141 mg/dl (70-99) H 01/25/22 11:34 Estimat Average Glucose 134 mg/dl 01/25/22 05:11 Hemoglobin A1c 6.3 % (4.5-5.6) H 01/25/22 05:11 Lactate 1.5 mmol/L (0.4-2.0) 01/24/22 16:45 Calcium 7.8 mg/dl (8.5-10.1) L 01/25/22 05:11 Magnesium 2.0 mg/dl (1.7-2.4) 01/25/22 05:11 Total Bilirubin 0.7 mg/dl (0.2-1.0) 01/24/22 16:20 AST 22 U/L (13-39) 01/24/22 16:20 ALT 27 U/L (7-52) 01/24/22 16:20 Alkaline Phosphatase 98 U/L (34-104) 01/24/22 16:20 Troponin I < 0.03 ng/ml (0-0.04) 01/24/22 16:20 Total Protein 7.2 gm/dl (6.0-8.3) 01/24/22 16:20 Albumin 3.4 gm/dl (3.4-5.0) 01/24/22 16:20 Globulin 3.8 gm/dl (2.5-4.0) 01/24/22 16:20 Albumin/Globulin Ratio 0.9 (0.9-2) 01/24/22 16:20 Procalcitonin 0.11 ng/ml (0-0.5) 01/24/22 16:20 Urine Color Yellow 01/25/22 Unknown Urine Appearance Clear (Clear) 01/25/22 Unknown Urine pH 5.0 (4.5-7.5) 01/25/22 Unknown Ur Specific [place] 1.029 (1.000-1.030) 01/25/22 Unknown Urine Protein 1+ (Negative) H 01/25/22 Unknown Urine Glucose (UA) Negative (Negative) 01/25/22 Unknown Urine Ketones Trace (Negative) H 01/25/22 Unknown Urine Blood Negative (Negative) 01/25/22 Unknown Urine Nitrite Negative (Negative) 01/25/22 Unknown Urine Bilirubin Negative (Negative) 01/25/22 Unknown Urine Urobilinogen Negative (Negative) 01/25/22 Unknown Ur Leukocyte Esterase Negative (Negative) 01/25/22 Unknown Urine WBC (Auto) 1-5 /hpf (0-5) 01/25/22 Unknown Urine RBC (Auto) 5-10 /hpf (0-4) H 01/25/22 Unknown U Hyaline Cast (Auto) 10-30 /lpf (0-5) H 01/25/22 Unknown U Epithel Cells (Auto) 20-30 /lpf (0-5) H 01/25/22 Unknown Urine Bacteria (Auto) Negative (Negative) 01/25/22 Unknown Nasal Screen MRSA (PCR) Negative (Negative) 01/24/22 17:00 SARS-CoV-2, RNA, NAAT NEGATIVE (NEGATIVE) 01/24/22 16:20 Impressions Chest X-Ray 01/24/22 16:15 XR chest 1V portable CLINICAL HISTORY: SEPSIS COMPARISON STUDY: Chest CT November 07, 2020. Chest radiograph November 22, 2020. FINDINGS: Right humeral internal fixation hardware is partially imaged. Small left and trace right pleural effusions are noted. These are similar to prior exam. Cardiomegaly is unchanged. Note is again made of numerous calcified pleural plaques. Left-sided bulla are depicted on prior chest CT. Interstitial thickening and bilateral opacities are similar to prior exams. IMPRESSION: No change in appearance of the chest. Small left and trace right pleural effusions with interstitial thickening and bilateral opacities, as described above. Although stable, mild pulmonary edema or an infectious process would be difficult to exclude. ACT 112: Negative or not required by law. Electronically signed by: Luis Alberto Echevarria M.D. 01/24/2022 4:46 PM (1) Chronic obstructive pulmonary disease COPD type: unspecified COPD Qualified Code(s): J44.9 - Chronic obstructive pulmonary disease, unspecified
[2022-01-26] MEDS: LEVALBUTEROL 1.25MG/0.5ML NEB INH SCH ×4 (00:02→19:04)
[2022-01-26] MEDS: IPRATROPIUM BROMIDE NEB SOLN 0.02% 2.5 ML VIAL INH SCH ×4 (00:02→19:04)
[2022-01-26] MEDS: PIPERACILLIN/TAZOBACTAM 3.375 GM in DEXTROSE 5% 100 ML IV SCH ×3 (03:46→23:17)
[2022-01-26 06:17] LABS: Hematocrit (blood only) 26.9 % (42-52); Hemoglobin 8.6 g/dL (14.0-18.0); Immature Granulocytes % (auto) 0.6 %; Lymphocytes # (auto) 0.49 K/uL (1.2-3.4); Lymphocytes % (auto) 2.9 %; Mean Corpuscular Hemoglobin 31.7 pg (25-34); Mean Corpuscular Volume 99.3 fL (80-100); Mean Platelet Volume 11.9 fL (7.4-10.4); Monocytes # (auto) 0.56 K/uL (0.11-0.59); Monocytes % (auto) 3.3 %; Neutrophils # (auto) 15.94 K/uL (1.4-6.5); Neutrophils % (auto) 93.2 %; Platelet Count 118 K/uL (130-400); RDW Coefficient of Variation 16.9 % (11.5-14.5); RDW Standard Deviation 61.3 fL (36.4-46.3); Red Blood Count 2.71 M/uL (4.7-6.1); White Blood Count 17.09 K/uL (4.8-10.8)
[2022-01-26 06:34] LABS: Albumin Globulin Ratio 0.9 (0.9-2); BUN Creatinine Ratio 20.3 (10-20); Bilirubin,Total 0.5 mg/dl (0.2-1.0); Calcium 8.2 mg/dl (8.5-10.1); Creatinine Clr Calc Pharmacy 45.3 ml/min; Est GFR (Non-African American) 51.8 ml/min; Globulin 3.3 gm/dl (2.5-4.0); Potassium 4.1 mmol/L (3.5-5.1); Total Protein 6.3 gm/dl (6.0-8.3)
[2022-01-26] MEDS: INSULIN ASPART PER UNIT SC SCH ×4 (08:50→20:58)
[2022-01-26] MEDS: FLUTICASONE/VILANTEROL 200/25MCG 14 PUFFS/INHALER INH SCH (09:06)
[2022-01-26] MEDS: UMECLIDINIUM BROMIDE 62.5MCG/BLISTER 7 PUFFS/INHALER INH SCH (09:06)
[2022-01-26] MEDS: methylPREDNISolone 40 MG in SYRINGE 0 ML IV SCH ×3 (09:07→20:47)
[2022-01-26] MEDS: SERTRALINE HCL 50 MG TABLET PO SCH (09:07)
[2022-01-26] MEDS: CLOPIDOGREL BISULFATE 75 MG TAB PO SCH (09:07)
[2022-01-26] MEDS: LANSOPRAZOLE 30 MG SOLTAB PO SCH (09:07)
[2022-01-26] MEDS: ROSUVASTATIN CALCIUM 20 MG TAB PO SCH (09:07)
[2022-01-26] MEDS: METOPROLOL TARTRATE 25 MG TAB PO SCH ×2 (09:07→20:47)
[2022-01-26] MEDS: AMIODARONE 200 MG TAB PO SCH (09:07)
[2022-01-26] MEDS: APIXABAN 5 MG TABLET PO SCH ×2 (09:08→20:47)
[2022-01-26] MEDS: DOXYCYCLINE HYCLATE 100 MG in DEXTROSE 5% 100 ML IV SCH ×2 (09:13→21:03)
--- NOTE | 2022-01-26 14:41 | Hospitalist Progress Note ---
Date of Service January 26, 2022 Assessment & Plan (1) Aspiration pneumonia: (2) Respiratory failure, acute and chronic: (3) Asbestosis: (4) Atrial fibrillation: (5) CAD (coronary artery disease): (6) Chronic obstructive pulmonary disease: Plan: This is an 81-year-old male who presents with acute on chronic respiratory failure. 1. Acute on chronic respiratory failure, history of chronic obstructive pulmonary disease, asbestosis, chronically on oxygen 3 liters, had mild wheezing and rhonchi on exam. Symptoms started after vomiting, possible aspiration pneumonia playing the role. He also has a history of sleep apnea, but since last one year is not using CPAP. We will place him on BiPAP in the nighttime. Possible aspiration pneumonia/pneumonitis -Leukocytosis has improved Continue with Solu-Medrol 40 t.i.d. and nebulizers around the clock and p.r.n. .Empiric antibiotics - Obtain BNPborderline elevated. Low-dose Lasix. Obtain echocardiogram. Repeat BNP 2. Diabetes, not on any medication. We will place him on insulin sliding scale, follow the blood sugars, follow HbA1c levels.6.3 3. History of atrial fibrillation, on amiodarone, metoprolol and Eliquis. Currently rate controlled 4. History of embolic cerebrovascular accident, on Plavix, Eliquis, statin. 5. History of hypertension, on metoprolol. We will monitor the blood pressure. 6. History of depression, on sertraline. 7. History of hyperlipidemia, on statin. 8. History of chronic kidney disease stage III, presents with a creatinine of 1.2. We will follow the laboratories. 9. Prolonged Qt. To avoid qt prolonging drugs. Follow ekg. 10. Deep venous thrombosis prophylaxis, on Eliquis. DISPOSITION: Admit to tele floor. PT/OT prior to discharge. Social service to help with discharge planning. Transfer back to [facility] when stable. CODE STATUS: Full code only if there is a chance of recovery as per discussion with the patient.. Admission and Anticipated Discharge Date Admission Date: January 24, 2022 Subjective Patient with history of COPD asbestos dust exposure on 3 L nasal cannula at home CAD A. fib CVA. Wheelchair-bound. Presenting with shortness of breath with nausea and vomiting questionable aspiration pneumonia. States he is feeling much better. Oxygenation is improving. Nurse at bedside d iscussed with nurse. Patient states he has no trouble swallowing. Denies choking. He states he is feeling better. Is on 9 l Patient is nonambulatory at baseline. Discussed with nurse and patient patient to be moved to a chair today Review of Systems Review of Systems: All systems reviewed and negative other than as described above in the history and physical Physical Exam Physical Exam: GENERAL: The patient is on facemask, not in acute distress. Conversant. CARDIOVASCULAR: S1 and S2 heard. Regular rate and rhythm. No murmur, no gallop. RESPIRATORY SYSTEM: Normal AP diameter. No accessory muscle use. Mild bibasilar rhonchi and mild expiratory wheezing which is mildly improved ABDOMEN: Soft, bowel sounds present, nontender, no distention. Colostomy noted CENTRAL NERVOUS SYSTEM: Cranial nerves II through XII are grossly intact, nonfocal. EXTREMITIES: No edema, no erythema. Results & Data Results & Data ([facility]) Vital Signs (Past 12 Hours) Vital Signs Temp Pulse Pulse Resp BP Pulse Ox 01/26/22 12:57 76 18 92 01/26/22 10:54 36.7 C 75 17 123/65 94 01/26/22 07:28 36.6 C 85 18 130/65 90 01/26/22 07:04 79 01/26/22 06:59 76 16 97 01/26/22 03:44 36.7 C 80 19 125/63 97 Laboratory Results Laboratory Results WBC 17.09 K/uL (4.8-10.8) H 01/26/22 06:01 RBC 2.71 M/uL (4.7-6.1) L 01/26/22 06:01 Hgb 8.6 g/dL (14.0-18.0) L 01/26/22 06:01 Hct 26.9 % (42-52) L 01/26/22 06:01 MCV 99.3 fL (80-100) 01/26/22 06:01 MCH 31.7 pg (25-34) 01/26/22 06:01 MCHC 32.0 g/dL (32-36) 01/26/22 06:01 RDW Std Deviation 61.3 fL (36.4-46.3) H 01/26/22 06:01 RDW Coeff of Jairon 16.9 % (11.5-14.5) H 01/26/22 06:01 Plt Count 118 K/uL (130-400) L 01/26/22 06:01 MPV 11.9 fL (7.4-10.4) H 01/26/22 06:01 Immature Gran % (Auto) 0.6 % 01/26/22 06:01 Neut % (Auto) 93.2 % 01/26/22 06:01 Lymph % (Auto) 2.9 % 01/26/22 06:01 [place] % (Auto) 3.3 % 01/26/22 06:01 Eos % (Auto) 0.0 % 01/26/22 06:01 Baso % (Auto) 0.0 % 01/26/22 06:01 Neut # (Auto) 15.94 K/uL (1.4-6.5) H 01/26/22 06:01 Lymph # (Auto) 0.49 K/uL (1.2-3.4) L 01/26/22 06:01 [place] # (Auto) 0.56 K/uL (0.11-0.59) 01/26/22 06:01 Eos # (Auto) 0.00 K/uL (0-0.5) 01/26/22 06:01 Baso # (Auto) 0.00 K/uL (0-0.2) 01/26/22 06:01 Immature Gran # (Auto) 0.10 K/uL (0.00-0.02) H 01/26/22 06:01 Platelet Estimate Decreased (Normal) L 01/25/22 05:11 Polychromasia 1+ 01/25/22 05:11 PT 13.0 Seconds (9.0-12.0) H 01/24/22 17:09 INR 1.2 (0.9-1.1) H 01/24/22 17:09 APTT 31.5 Seconds (21.0-31.0) H 01/24/22 17:09 PTT Ratio 1.1 01/24/22 17:09 Sodium 136 mmol/L (136-145) 01/26/22 06:01 Potassium 4.1 mmol/L (3.5-5.1) 01/26/22 06:01 Chloride 107 mmol/L (98-107) 01/26/22 06:01 Carbon Dioxide 23 mmol/L (21-32) 01/26/22 06:01 Anion Gap 6 (3-11) 01/26/22 06:01 BUN 26 mg/dl (6-23) H 01/26/22 06:01 Creatinine 1.28 mg/dl (0.6-1.4) 01/26/22 06:01 Est Cr Clr Drug Dosing 45.3 ml/min 01/26/22 06:01 Est GFR ( Amer) 60.0 ml/min 01/26/22 06:01 Est GFR (Non-Af Amer) 51.8 ml/min 01/26/22 06:01 BUN/Creatinine Ratio 20.3 (10-20) H 01/26/22 06:01 Glucose 154 mg/dl (70-99(Fasting)) H 01/26/22 06:01 POC Glucose 162 mg/dl (70-99) H 01/26/22 11:28 Estimat Average Glucose 134 mg/dl 01/25/22 05:11 Hemoglobin A1c 6.3 % (4.5-5.6) H 01/25/22 05:11 Lactate 1.5 mmol/L (0.4-2.0) 01/24/22 16:45 Calcium 8.2 mg/dl (8.5-10.1) L 01/26/22 06:01 Magnesium 2.0 mg/dl (1.7-2.4) 01/25/22 05:11 Total Bilirubin 0.5 mg/dl (0.2-1.0) 01/26/22 06:01 AST 19 U/L (13-39) 01/26/22 06:01 ALT 23 U/L (7-52) 01/26/22 06:01 Alkaline Phosphatase 58 U/L (34-104) 01/26/22 06:01 Troponin I < 0.03 ng/ml (0-0.04) 01/24/22 16:20 B-Natriuretic Peptide 339 pg/ml (0-100) H 01/25/22 12:08 Total Protein 6.3 gm/dl (6.0-8.3) 01/26/22 06:01 Albumin 3.0 gm/dl (3.4-5.0) L 01/26/22 06:01 Globulin 3.3 gm/dl (2.5-4.0) 01/26/22 06:01 Albumin/Globulin Ratio 0.9 (0.9-2) 01/26/22 06:01 Procalcitonin 4.74 ng/ml (0-0.5) H 01/26/22 06:01 Urine Color Yellow 01/25/22 Unknown Urine Appearance Clear (Clear) 01/25/22 Unknown Urine pH 5.0 (4.5-7.5) 01/25/22 Unknown Ur Specific [place] 1.029 (1.000-1.030) 01/25/22 Unknown Urine Protein 1+ (Negative) H 01/25/22 Unknown Urine Glucose (UA) Negative (Negative) 01/25/22 Unknown Urine Ketones Trace (Negative) H 01/25/22 Unknown Urine Blood Negative (Negative) 01/25/22 Unknown Urine Nitrite Negative (Negative) 01/25/22 Unknown Urine Bilirubin Negative (Negative) 01/25/22 Unknown Urine Urobilinogen Negative (Negative) 01/25/22 Unknown Ur Leukocyte Esterase Negative (Negative) 01/25/22 Unknown Urine WBC (Auto) 1-5 /hpf (0-5) 01/25/22 Unknown Urine RBC (Auto) 5-10 /hpf (0-4) H 01/25/22 Unknown U Hyaline Cast (Auto) 10-30 /lpf (0-5) H 01/25/22 Unknown U Epithel Cells (Auto) 20-30 /lpf (0-5) H 01/25/22 Unknown Urine Bacteria (Auto) Negative (Negative) 01/25/22 Unknown Nasal Screen MRSA (PCR) Negative (Negative) 01/24/22 17:00 SARS-CoV-2, RNA, NAAT NEGATIVE (NEGATIVE) 01/24/22 16:20 Impressions Chest X-Ray 01/24/22 16:15 XR chest 1V portable CLINICAL HISTORY: SEPSIS COMPARISON STUDY: Chest CT November 07, 2020. Chest radiograph November 22, 2020. FINDINGS: Right humeral internal fixation hardware is partially imaged. Small left and trace right pleural effusions are noted. These are similar to prior exam. Cardiomegaly is unchanged. Note is again made of numerous calcified pleural plaques. Left-sided bulla are depicted on prior chest CT. Interstitial thickening and bilateral opacities are similar to prior exams. IMPRESSION: No change in appearance of the chest. Small left and trace right pleural effusions with interstitial thickening and bilateral opacities, as described above. Although stable, mild pulmonary edema or an infectious process would be difficult to exclude. ACT 112: Negative or not required by law. Electronically signed by: Luis Alberto Echevarria M.D. 01/24/2022 4:46 PM Medications Administered Current Inpatient Medications Acetaminophen (Acetaminophen 325 Mg Tab) 650 mg PO Q4H PRN PRN Reason: Pain or Fever Stop: 02/23/22 22:14 Albuterol (Albuterol Hfa 8 Gm Inhaler) 2 puffs INH Q6 PRN PRN Reason: Shortness Of Breath Or Wheezin Stop: 02/23/22 22:14 Amiodarone HCl (Amiodarone 200 Mg Tab) 200 mg PO QAM OMID Stop: 02/24/22 08:59 Last Admin: 01/26/22 09:07 Dose: 200 mg Documented by: Apixaban (Apixaban 5 Mg Tablet) 5 mg PO BID OMID Stop: 02/23/22 22:14 Last Admin: 01/26/22 09:08 Dose: 5 mg Documented by: Clopidogrel Bisulfate (Clopidogrel Bisulfate 75 Mg Tab) 75 mg PO DAILY OMID Stop: 02/24/22 08:59 Last Admin: 01/26/22 09:07 Dose: 75 mg Documented by: Dextrose (Dextrose 50% 50 Ml Syringe) 25 - 50 ml IV UD PRN; Protocol PRN Reason: Hypoglycemia Protocol Stop: 02/23/22 22:44 Fluticasone/Vilanterol (Fluticasone/Vilanterol 200/25mcg 14 Puffs/Inhaler) 1 puffs INH DAILY OMID Stop: 02/24/22 08:59 Last Admin: 01/26/22 09:06 Dose: 1 puffs Documented by: Glucagon (Glucagon For Inj 1 Mg Vial) 1 mg IM UD PRN; Protocol PRN Reason: Hypoglycemia Protocol Stop: 02/23/22 22:44 Glucose (Glucose 40% Gel 15 Gm Tube) 15 - 30 gm PO UD PRN; Protocol PRN Reason: Hypoglycemia Protocol Stop: 02/23/22 22:44 Glucose (Glucose 10 Tabs/Tube) 4 - 8 tabs PO UD PRN; Protocol PRN Reason: Hypoglycemia Protocol Stop: 02/23/22 22:44 Piperacillin Sod/Tazobactam (Sod 3.375 gm/ Dextrose) 115 mls @ 28.75 mls/hr IV Q8H OMID; Protocol Stop: 02/01/22 03:59 Last Admin: 01/26/22 12:05 Dose: 28.8 mls/hr Documented by: Promethazine HCl 12.5 mg/ (Sodium Chloride) 50.5 mls @ 202 mls/hr IV Q6H PRN PRN Reason: Nausea And Vomiting Stop: 02/23/22 22:14 Methylprednisolone 40 mg/ (Syringe) 0.64 mls @ 1.5 mls/min IV TID [facility] Stop: 02/24/22 08:59 Last Admin: 01/26/22 09:07 Dose: 1.5 mls/min Documented by: Doxycycline Hyclate 100 mg/ (Dextrose) 110 mls @ 50 mls/hr IV Q12H [facility] Stop: 02/01/22 07:59 Last Infusion: 01/26/22 11:19 Dose: Infused Documented by: Insulin Aspart (Insulin Aspart Per Unit) 0 units SC ACHS [facility] Stop: 02/23/22 22:14 Last Admin: 01/26/22 12:03 Dose: 6 units Documented by: Ipratropium Granger (Ipratropium [place] Neb Soln 0.02% 2.5 Ml Vial) 0.5 mg INH Q6R [facility] Stop: 02/23/22 22:14 Last Admin: 01/26/22 12:56 Dose: 0.5 mg Documented by: Lansoprazole (Lansoprazole 30 Mg Soltab) 30 mg PO QAM [facility] Stop: 02/24/22 08:59 Last Admin: 01/26/22 09:07 Dose: 30 mg Documented by: Levalbuterol HCl (Levalbuterol 1.25mg/0.5ml Neb) 1.25 mg INH Q6R [facility]ID Stop: 02/23/22 22:14 Last Admin: 01/26/22 12:56 Dose: 1.25 mg Documented by: Levalbuterol HCl (Levalbuterol Hcl 1.25 Mg/3 Ml Neb) 1.25 mg NEB Q2H PRN; Protocol PRN Reason: Shortness Of Breath Or Wheezing Stop: 02/23/22 22:14 Metoprolol Tartrate (Metoprolol Tartrate 25 Mg Tab) 25 mg PO BID [facility] Stop: 02/23/22 22:14 Last Admin: 01/26/22 09:07 Dose: 25 mg Documented by: Miscellaneous (Carbohydrates For Hypoglycemia ) 15 - 30 gm PO UD PRN PRN Reason: Hypoglycemia Treatment Stop: 02/23/22 22:44 Miscellaneous Information (Piperacill/Tazobac Consult Active) 1 ea N/A UD PRN PRN Reason: Consult Stop: 02/23/22 22:14 Nitroglycerin (Nitroglycerin Sl 0.4 Mg/Tab Tab) 0.4 mg SL UD PRN PRN Reason: Chest Pain Stop: 02/23/22 22:14 Polyethylene Glycol (Polyethylene (Miralax) 17 Gm Pack) 17 gm PO DAILY PRN PRN Reason: Constipation Stop: 02/23/22 22:14 Rosuvastatin Calcium (Rosuvastatin Calcium 20 Mg Tab) 20 mg PO QAM [facility] Stop: 02/24/22 08:59 Last Admin: 01/26/22 09:07 Dose: 20 mg Documented by: Sertraline HCl (Sertraline Hcl 50 Mg Tablet) 50 mg PO DAILY OMID Stop: 02/24/22 08:59 Last Admin: 01/26/22 09:07 Dose: 50 mg Documented by: Tramadol HCl (Tramadol Hcl 50 Mg Tablet) 50 mg PO Q6 PRN PRN Reason: Pain Stop: 02/23/22 22:14 Umeclidinium [place] (Umeclidinium [place] 62.5mcg/Blister 7 Puffs/Inhaler) 1 puffs INH QAM [facility] Stop: 02/24/22 08:59 Last Admin: 01/26/22 09:06 Dose: 1 puffs Documented by: (1) Chronic obstructive pulmonary disease COPD type: unspecified COPD Qualified Code(s): J44.9 - Chronic obstructive pulmonary disease, unspecified
[2022-01-26] MEDS ORDERED: FUROSEMIDE INJ 20 MG/2 ML VIAL IV ONE (14:43)
[2022-01-26 15:23] LABS: BUN Creatinine Ratio 21.9 (10-20); Calcium 8.4 mg/dl (8.5-10.1); Creatinine Clr Calc Pharmacy 45.3 ml/min; Est GFR (Non-African American) 51.8 ml/min; Potassium 4.3 mmol/L (3.5-5.1)
[2022-01-27] MEDS: IPRATROPIUM BROMIDE NEB SOLN 0.02% 2.5 ML VIAL INH SCH ×4 (00:19→19:08)
[2022-01-27] MEDS: LEVALBUTEROL 1.25MG/0.5ML NEB INH SCH ×4 (00:19→19:08)
[2022-01-27] MEDS: PIPERACILLIN/TAZOBACTAM 3.375 GM in DEXTROSE 5% 100 ML IV SCH ×3 (06:06→23:05)
[2022-01-27 06:49] LABS: Eosinophils # (auto) 0.01 K/uL (0-0.5); Eosinophils % (auto) 0.1 %; Hematocrit (blood only) 28.8 % (42-52); Immature Granulocytes # (auto) 0.08 K/uL (0.00-0.02); Immature Granulocytes % (auto) 0.6 %; Lymphocytes # (auto) 0.39 K/uL (1.2-3.4); Lymphocytes % (auto) 3.1 %; Mean Corpuscular Hemoglobin 30.9 pg (25-34); Mean Corpuscular Hgb Conc 31.3 g/dL (32-36); Mean Platelet Volume 11.7 fL (7.4-10.4); Monocytes # (auto) 0.53 K/uL (0.11-0.59); Monocytes % (auto) 4.2 %; Neutrophils # (auto) 11.63 K/uL (1.4-6.5); Platelet Count 117 K/uL (130-400); RDW Coefficient of Variation 16.9 % (11.5-14.5); RDW Standard Deviation 60.5 fL (36.4-46.3); Red Blood Count 2.91 M/uL (4.7-6.1); White Blood Count 12.64 K/uL (4.8-10.8)
[2022-01-27 07:13] LABS: BUN Creatinine Ratio 22.4 (10-20); Calcium 8.3 mg/dl (8.5-10.1); Creatinine Clr Calc Pharmacy 43.5 ml/min; Est GFR (African American) 56.8 ml/min; Potassium 4.3 mmol/L (3.5-5.1)
[2022-01-27] MEDS: METOPROLOL TARTRATE 25 MG TAB PO SCH ×2 (08:59→20:40)
[2022-01-27] MEDS: SERTRALINE HCL 50 MG TABLET PO SCH (08:59)
[2022-01-27] MEDS: APIXABAN 5 MG TABLET PO SCH ×2 (08:59→20:40)
[2022-01-27] MEDS: FLUTICASONE/VILANTEROL 200/25MCG 14 PUFFS/INHALER INH SCH (09:00)
[2022-01-27] MEDS: CLOPIDOGREL BISULFATE 75 MG TAB PO SCH (09:00)
[2022-01-27] MEDS: AMIODARONE 200 MG TAB PO SCH (09:00)
[2022-01-27] MEDS: UMECLIDINIUM BROMIDE 62.5MCG/BLISTER 7 PUFFS/INHALER INH SCH (09:00)
[2022-01-27] MEDS: ROSUVASTATIN CALCIUM 20 MG TAB PO SCH (09:00)
[2022-01-27] MEDS: LANSOPRAZOLE 30 MG SOLTAB PO SCH (09:00)
[2022-01-27] MEDS: INSULIN ASPART PER UNIT SC SCH ×4 (09:03→20:48)
[2022-01-27] MEDS: methylPREDNISolone 40 MG in SYRINGE 0 ML IV SCH ×2 (09:03→15:21)
[2022-01-27] MEDS: DOXYCYCLINE HYCLATE 100 MG in DEXTROSE 5% 100 ML IV SCH ×2 (10:12→20:40)
[2022-01-27] MEDS ORDERED: FUROSEMIDE INJ 20 MG/2 ML VIAL IV ONE (11:16)
--- NOTE | 2022-01-27 11:18 | Hospitalist Progress Note ---
Date of Service January 27, 2022 Assessment & Plan (1) Aspiration pneumonia: (2) Respiratory failure, acute and chronic: (3) Asbestosis: (4) Atrial fibrillation: (5) CAD (coronary artery disease): (6) Chronic obstructive pulmonary disease: Plan: This is an 81-year-old male who presents with acute on chronic respiratory failure. 1. Acute on chronic respiratory failure, history of chronic obstructive pulmonary disease, asbestosis, chronically on oxygen 3 liters, had mild wheezing and rhonchi on exam. Symptoms started after vomiting, possible aspiration pneumonia playing the role. He also has a history of sleep apnea, but since last one year is not using CPAP. We will place him on BiPAP in the nighttime. Possible aspiration pneumonia/pneumonitis -Leukocytosis has improved however oxygenation has not markedly improved although down to 6 L yesterday Continue with Solu-Medrol 40 t.i.d. and nebulizers around the clock and p.r.n. .Empiric antibiotics - Obtain BNPborderline elevated. Low-dose Lasix given yesterdayprovide another dose today. Obtain echocardiogram. Chest x-ray 2. Diabetes, not on any medication. We will place him on insulin sliding scale, follow the blood sugars, follow HbA1c levels.6.3 3. History of atrial fibrillation, on amiodarone, metoprolol and Eliquis. Currently rate controlled 4. History of embolic cerebrovascular accident, on Plavix, Eliquis, statin. 5. History of hypertension, on metoprolol. We will monitor the blood pressure. 6. History of depression, on sertraline. 7. History of hyperlipidemia, on statin. 8. History of chronic kidney disease stage III, presents with a creatinine of 1.2. We will follow the laboratories. 9. Prolonged Qt. To avoid qt prolonging drugs. Follow ekg. 10. Deep venous thrombosis prophylaxis, on Eliquis. DISPOSITION: Admit to tele floor. PT/OT prior to discharge. Social service to help with discharge planning. Transfer back to [facility] when stable. CODE STATUS: Full code only if there is a chance of recovery as per discussion with the patient.. Admission and Anticipated Discharge Date Admission Date: January 24, 2022 Subjective Patient with history of COPD asbestos dust exposure on 3 L nasal cannula at home CAD A. fib CVA. Wheelchair-bound. Presenting with shortness of breath with nausea and vomiting questionable aspiration pneumonia. States he is feeling much better. Is currently on 12 L. Desaturates to 84% on 3 L. On my evaluation in the room. States he wants to be discharged states previously he was placed on 8 L and sent home for his back. And want to further optimize patient. Leukocytosis has markedly improved. Although oxygenation has not followed suit currently He received a small dose of Lasix yesterday. Patient is nonambulatory at baseline. Review of Systems Review of Systems: All systems reviewed and negative other than as described above in the history and physical Physical Exam Physical Exam: GENERAL: The patient is on facemask, not in acute distress. Conversant. CARDIOVASCULAR: S1 and S2 heard. Regular rate and rhythm. No murmur, no gallop. RESPIRATORY SYSTEM: Normal AP diameter. No accessory muscle use. Mild diminished largely clear to auscultation. Wheezing resolved. No rhonchi noted. ABDOMEN: Soft, bowel sounds present, nontender, no distention. Colostomy noted CENTRAL NERVOUS SYSTEM: Cranial nerves II through XII are grossly intact, nonfocal. EXTREMITIES: No edema, no erythema. Results & Data Results & Data ([facility]) Vital Signs (Past 12 Hours) Vital Signs Temp Pulse Pulse Resp BP Pulse Ox 01/27/22 10:57 36.9 C 81 18 128/70 91 01/27/22 07:31 75 20 91 01/27/22 07:23 36.6 C 78 18 137/67 92 01/27/22 07:12 79 01/27/22 04:08 36.5 C 81 24 134/70 95 01/27/22 00:19 78 21 92 01/27/22 00:07 36.5 C 77 24 125/65 95 01/26/22 23:59 80 (1) Chronic obstructive pulmonary disease COPD type: unspecified COPD Qualified Code(s): J44.9 - Chronic obstructive pulmonary disease, unspecified
--- NOTE | 2022-01-27 12:51 | XRay Report ---
XR chest 1V portable CLINICAL HISTORY: CHF? TECHNIQUE: Single frontal radiograph of the chest was obtained. Comparison: Comparison is made to chest one view 01/24/2022 FINDINGS: No lines and tubes are seen. The cardiomediastinal silhouette is obscured. Multifocal airspace opacit ies are seen. Small bilateral pleural effusions are seen. IMPRESSION: Multiple airspace opacities are unchanged from prior exam. Small bilateral pleural effusions are agai n noted. ACT 112: Negative or not required by law. Electronically signed by: Kamran Modi M.D. 01/27/2022 12:50 PM
--- NOTE | 2022-01-27 16:18 | Pulmonary Consultation ---
Date of Consultation January 27, 2022 Assessment & Plan (1) Pneumonia: (2) Hypoxia: (3) Abnormal CT scan of lung: Impression: 81-year-old male with history of chronic hypoxemic respiratory failure and Covid pneumonitis admitted now with presumably secondary bacterial infection. He appears to have a stable oxygen requirement. His procalcitonin is decreasing and his BNP is decreasing. Recommendations: 1. Continue antibiotics although the Zosyn can likely be discontinued as we have not recovered gram-negative organisms. The patient's white count, procalcitonin, and fever curve are all improving. Patient had a prior CT scan demonstrating fibrotic changes which could be contributing as well. We will check blood gas to evaluate for hypercarbia contributing to his hypoxemia. Repeat noncontrast CT scan of the chest will be obtained to evaluate for the loculated pneumothorax which was present previously as well as underlying potential structural lung disease. 2. Agree with attempts at diuresis. The patient received IV Lasix today. Would continue that on a daily basis till the patient serum creatinine her bicarb bump 3. We will repeat the patient's arterial blood gas. 4. No indication for additional Solu-Medrol at this point time and this will be discontinued. 5. Continue oxygen titrated to keep saturations at or above 88%. 6. The patient's abnormal x-ray likely accounts for the degree of hypoxemia and I do not think additional evaluation for thromboembolic disease is required at this point in time. In addition he is fully anticoagulated on Eliquis. Discussed with patient at bedside. We will continue to follow as the patient's oxygen is weaned. Feel free to contact us with additional questions or concerns History of Present Illness Attending Physician: Yamil Grajeda MD History of Present Illness Asked by hospitalist to assist in evaluation management this patient with hypoxemic respiratory failure. History is obtained from reviewed electronic medical record as well as discussion with the patient at bedside. Patient is an 81-year-old male with a history of chronic hypoxemic respiratory failure. He uses oxygen around 3 L at home on a chronic basis. Patient was admitted to this facility 01/24/2022 with complaints of shortness of breath. He was treated with Solu-Medrol and started on Zosyn, he and vancomycin. His clinical numbers including white blood cell count and procalcitonin have improved however the patient remains hypoxemic which prompted pulmonary consultation today. Patient does not report any significant sputum production. He is occasionally coughing. No significant chest pain or palpitations. He denies fevers chills or night sweats. He is not having any aspiration events. Allergies Allergy/AdvReac Type Severity Reaction Status Date / Time [facility] Allergy Severe hives Verified 11/22/21 20:35 telmisartan Allergy Unknown Unknown Verified 11/22/21 20:35 Home Medications Medication Instructions Recorded Confirmed Type amiodarone 200 mg tablet 200 mg PO QAM #5 tab 10/08/21 01/24/22 Rx lansoprazole 30 mg delayed 30 mg PO QAM #5 tab 10/08/21 01/24/22 Rx release,disintegrating tablet (Prevacid SoluTab) metoprolol tartrate 25 mg tablet 25 mg PO BID #10 tab 10/08/21 01/24/22 Rx tiotropium bromide 18 mcg capsule See Rx Instructions .ROUTE 10/08/21 01/24/22 Rx with inhalation device (Spiriva .COMPLEX #5 capsule with HandiHaler) Barrier Cream 1 applic TOPICAL QID 11/06/21 01/24/22 History albuterol sulfate 90 mcg/actuation 2 puff INHALATION Q6 PRN 11/06/21 01/24/22 History aerosol inhaler (Ventolin HFA) clopidogrel 75 mg tablet 75 mg PO DAILY 11/06/21 01/24/22 History diphenhydramine HCl 50 mg capsule 50 mg PO Q8 PRN 11/06/21 01/24/22 History (Banophen) ondansetron 4 mg disintegrating 4 mg PO Q4 PRN 11/06/21 01/24/22 History tablet rosuvastatin 20 mg tablet (Crestor) 20 mg PO QAM #30 tab 11/08/21 01/24/22 Rx apixaban 5 mg tablet (Eliquis) 5 mg PO BID 11/22/21 01/24/22 History hydrocortisone 1 % topical cream 1 applic TOPICAL BID 11/22/21 01/24/22 History tramadol 50 mg tablet 50 mg PO Q6 PRN 11/22/21 01/24/22 History mometasone-formoterol HFA 200 2 puff INHALATION BID #1 inhaler 01/22/22 01/24/22 Rx mcg-5 mcg/actuation aerosol inhaler (Dulera) sertraline 50 mg tablet 50 mg PO DAILY 01/24/22 01/24/22 History Patient History Medical History Abdominal pain Anemia Asbestosis Benign prostatic disease CAD (coronary artery disease) Chronic kidney disease Chronic obstructive pulmonary disease Chronic respiratory failure with hypoxia Dehydration Emphysematous bleb Hypertension Impaired fasting glucose Obstructive sleep apnea Pleural effusion on right Pleural plaque with presence of asbestos Pulmonary nodule Weakness of left lower extremity Weakness of left upper extremity Surgical History H/O colonoscopy History of cataract surgery History of colectomy 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 Dr. Chau History of shoulder surgery right shoulder surgery Family History Father Emphysema, unspecified Brother Cancer Mother Glaucoma Cancer skin Sister Renal failure Denies family history of Ovarian cancer Prostate cancer Myocardial infarction Breast cancer Colorectal cancer Social History Smoking Status: Former smoker Tobacco Type: Cigarettes Age Started Using Tobacco: 15; Age Quit Using Tobacco: 49; packs per day: 1; Second Hand Exposure: No; Do You Dip or Chew Tobacco: No; Hx Alcohol Use: Yes Alcohol type: beer Alcohol Intake Frequency Comment: has a couple once a week Hx Substance Use: No Preferred Language: Martiniquais Communication Ability: Effective Visual Impairment: No Limitations Hearing Ability: Normal Balloon Seller Required: No Beliefs That Will Affect Care: None marital status: Single Current Living Situation: Personal Care Facility Current Living Situation Comment: recently moved from [facility] to [facility] current occupational status: retired 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 No additions or deletions Physical Exam Constitutional: WD/WN, vitals as above no acute distress Respiratory: normal respiratory effort; no respiratory distress Auscultation: + diminished lung sounds Cardiovascular: Rate/Rhythm: regular rate and regular rhythm Vessels: normal peripheral pulses Extremities: no edema Gastrointestinal (Abdomen): Percussion/Palpation: abdomen soft; abdomen nontender Ostomy in place Skin: no rashes, warm and dry Neurologic: no focal motor deficits Psychiatric: A+Ox3, euthymic affect Results & Data Results & Data ([facility]) Vital Signs (Past 12 Hours) Vital Signs Temp Pulse Pulse Resp BP Pulse Ox 01/27/22 16:00 78 01/27/22 15:00 76 20 121/56 L 93 01/27/22 13:08 75 20 92 01/27/22 10:57 36.9 C 81 18 128/70 91 01/27/22 07:31 75 20 91 01/27/22 07:23 36.6 C 78 18 137/67 92 01/27/22 07:12 79 01/27/22 04:08 36.5 C 81 24 134/70 95 Laboratory Results Procalcitonin 2.92 down from 4.74 BNP 257 down from 339 Diagnostic Findings The patient had a CT of the chest performed in October 2020 this revealed bilateral pleural plaquing with emphysematous changes and small lung volumes. Loculated pneumothorax on the left anteriorly was noted. Prior PFTs have demonstrated predominantly a restrictive pattern Critical Care Results & Data Vital Signs (Past 12 Hours) Vital Signs Temp Pulse Pulse Resp BP Pulse Ox 01/27/22 16:00 78 01/27/22 15:00 76 20 121/56 L 93 01/27/22 13:08 75 20 92 01/27/22 10:57 36.9 C 81 18 128/70 91 01/27/22 07:31 75 20 91 01/27/22 07:23 36.6 C 78 18 137/67 92 01/27/22 07:12 79 01/27/22 04:08 36.5 C 81 24 134/70 95 Lab & Micro Results (Past 24 Hours) RBC 2.91 M/uL (4.7-6.1) L 01/27/22 WBC 12.64 K/uL (4.8-10.8) H 01/27/22 Hgb 9.0 g/dL (14.0-18.0) L 01/27/22 Hct 28.8 % (42-52) L 01/27/22 MCV 99.0 fL (80-100) 01/27/22 MCH 30.9 pg (25-34) 01/27/22 MCHC 31.3 g/dL (32-36) L 01/27/22 RDW Standard Deviation 60.5 fL (36.4-46.3) H 01/27/22 RDW Coefficient of Variation 16.9 % (11.5-14.5) H 01/27/22 Plt Count 117 K/uL (130-400) L 01/27/22 MPV 11.7 fL (7.4-10.4) H 01/27/22 Neutrophils (%) (Auto) 92.0 % 01/27/22 Lymphocytes (%) (Auto) 3.1 % 01/27/22 Monocytes # (Auto) 0.53 K/uL (0.11-0.59) 01/27/22 Eosinophils # (Auto) 0.01 K/uL (0-0.5) 01/27/22 Immature Granulocyte % (Auto) 0.6 % 01/27/22 Neutrophils # (Auto) 11.63 K/uL (1.4-6.5) H 01/27/22 Lymphocytes # (Auto) 0.39 K/uL (1.2-3.4) L 01/27/22 Monocytes # (Auto) 0.53 K/uL (0.11-0.59) 01/27/22 Eosinophils # (Auto) 0.01 K/uL (0-0.5) 01/27/22 Basophils # (Auto) 0.00 K/uL (0-0.2) 01/27/22 Immature Granulocyte # (Auto) 0.08 K/uL (0.00-0.02) H 01/27/22 Na 137 mmol/L (136-145) 01/27/22 K 4.3 mmol/L (3.5-5.1) 01/27/22 Cl 104 mmol/L (98-107) 01/27/22 CO2 26 mmol/L (21-32) 01/27/22 Anion Gap 7 (3-11) 01/27/22 BUN 30 mg/dl (6-23) H 01/27/22 Creatinine 1.34 mg/dl (0.6-1.4) 01/27/22 Estimated GFR ( Amer) 56.8 ml/min 01/27/22 Estimated GFR (Non-Af Amer) 49.0 ml/min 01/27/22 BUN/Creatinine Ratio 22.4 (10-20) H 01/27/22 Glu 148 mg/dl (70-99(Fasting)) H 01/27/22 Ca 8.3 mg/dl (8.5-10.1) L 01/27/22 Calcium Level 8.3 mg/dl (8.5-10.1) L 01/27/22 06:01 01/27/22 Microbiology 01/24/22 16:45 Aerobic Blood Culture - Preliminary Blood No growth in Aerobic bottle after 48 hours. Anaerobic Blood Culture - Preliminary No growth in Anaerobic bottle after 48 hours. 01/24/22 16:20 Aerobic Blood Culture - Preliminary Blood No growth in Aerobic bottle after 48 hours. Anaerobic Blood Culture - Preliminary No growth in Anaerobic bottle after 48 hours. Diagnostic Findings (Past 24 Hours) Chest X-Ray 01/27/22 11:17 XR chest 1V portable CLINICAL HISTORY: CHF? TECHNIQUE: Single frontal radiograph of the chest was obtained. Comparison: Comparison is made to chest one view 01/24/2022 FINDINGS: No lines and tubes are seen. The cardiomediastinal silhouette is obscured. Multifocal airspace opacities are seen. Small bilateral pleural effusions are seen. IMPRESSION: Multiple airspace opacities are unchanged from prior exam. Small bilateral pleural effusions are again noted. ACT 112: Negative or not required by law. Electronically signed by: Kamran Modi M.D. 01/27/2022 12:50 PM I & O Totals 24 Hours 01/26/22 01/27/22 01/28/22 06:59 06:59 06:59 Intake Total 785 / 785 815 / 815 225 / 225 Output Total 425 / 425 1303 / 1303 1300 / 1300 Balance 360 / 360 -488 / -488 -1075 / -1075 Cumulative 01/24/22 15:51 thru 01/27/22 14:29 Intake Total 4635 Output Total 3278 Balance 1357 RT Ventilator Mngmt (Last Documented) Ventilator Ordered Settings Respiratory Rate 20 01/27/22 15:00 Ventilator - PT Measurements Respiratory Rate 20 PG Care Time/CCT Total # of Minutes Spent Total Time Spent with Patient: Total time spent is greater than 50% in coordination of care (as documented) at patient's floor/unit and/or counseling patient: Coding Level of Care Code 09982 Initial Inpt Care Lvl 3 Diagnoses Pneumonia J18.[address] scan of lung R91.8
[2022-01-27 16:49] LABS: Base Excess ABG 0.8 mEq/L (-9-1.8); HCO3 ABG 26 mmol/L (19-24); Oxygen Saturation ABG 91.4 % (90-95); PCO2 ABG 41 mmHg (35-46); PO2 ABG 65 mmHg (80-95); pH ABG 7.42 (7.35-7.45)
[2022-01-27 16:55] LABS: Allen Test POS (Pos)
--- NOTE | 2022-01-27 17:24 | XCELERA ---
[id number] \\[id number]___[id number]
--- NOTE | 2022-01-27 18:31 | CT Scan Report ---
CT SCAN OF THE CHEST WITHOUT IV CONTRAST CLINICAL HISTORY: Pneumonia. COMPARISON STUDY: Chest x-ray dated 01/27/2022. Chest CT dated 11/07/2020. TECHNIQUE: CT scan of the thorax was performed from the thoracic inlet to the upper abdomen. Images are reviewed in the axial, sagittal, and coronal planes. IV contrast was not administered for this ex amination as per the referring clinician. A dose lowering technique was utilized adhering to the [place]. The Examination is degraded by motion artifact. CT DOSE: 421.32 mGycm FINDINGS: Thyroid: Imaged portions of the thyroid gland are normal in size and attenuation. Thoracic aorta: There is mild atherosclerotic calcification of the thoracic aorta, which is normal in caliber and demonstrates bovine variant arch anatomy. Heart: The heart is enlarged and without pericardial effusion. The coronary arteries are densely calc ified. Lungs and pleural spaces: Evaluation of the lung parenchyma is degraded by motion artifact. Extensive calcified pleural plaques are again seen bilaterally. There is mild diffuse bronchiectasis seen bila terally with architectural distortion and parenchymal scarring throughout both lungs. There is superi mposed groundglass change throughout the right lung and in the left upper lobe. Loculated pleural flu id is again seen along the left major fissure. A small thick-walled and loculated pleural collection at the left lung base seen on image #207 is likely unchanged from previous. This measures approximate ly 8.5 x 3 cm in axial dimension. Trace loculated pleural fluid seen posteriorly on the right is also unchanged (axial image #112). A focus of round atelectasis is again seen in the right upper lobe. Mi ld emphysematous change is suggested with a large bleb in the anterior left lung. The trachea and neftaly tral airways are clear. Mediastinum: There is enlarged high right peritracheal node on image #14 which measures 15 mm in shor t axis. This is similar to previous. Numerous position subcentimeter mediastinal lymph nodes are not pathologically enlarged by size criteria. Traci: Not well assessed without IV contrast. Axillae: There is no axillary lymphadenopathy. Upper abdomen: Partially visualized upper abdominal viscera is within normal limits. Skeletal structures: The skeletal structures are osteopenic. No lytic or blastic bony lesions are see n. Postoperative change is noted in the right proximal humerus. There is a minimal superior endplate compression deformity of L1. IMPRESSION: 1. 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 2. There is superimposed groundglass change throughout the right lung and in the left upper lobe. Thi s could represent a superimposed infectious/inflammatory pneumonitis or possibly pulmonary edema. Cli nical correlation will be essential. 3. Cardiomegaly. 4. Small loculated pleural collections are likely unchanged from previous. 5. Mildly enlarged mediastinal lymph nodes are unchanged from previous. 6. Additional findings as above. ACT 112: Negative or not required by law. Electronically signed by: Thanh Rand M.D. 01/27/2022 6:28 PM
[2022-01-28] MEDS: LEVALBUTEROL 1.25MG/0.5ML NEB INH SCH ×4 (00:11→19:05)
[2022-01-28] MEDS: IPRATROPIUM BROMIDE NEB SOLN 0.02% 2.5 ML VIAL INH SCH ×4 (00:11→19:05)
[2022-01-28] MEDS: PIPERACILLIN/TAZOBACTAM 3.375 GM in DEXTROSE 5% 100 ML IV SCH (05:56)
[2022-01-28] MEDS: INSULIN ASPART PER UNIT SC SCH ×4 (08:37→20:21)
[2022-01-28 08:41] LABS: BUN Creatinine Ratio 23.5 (10-20); Calcium 8.4 mg/dl (8.5-10.1); Creatinine Clr Calc Pharmacy 44.5 ml/min; Est GFR (African American) 57.8 ml/min; Est GFR (Non-African American) 49.9 ml/min; Potassium 4.1 mmol/L (3.5-5.1)
--- NOTE | 2022-01-28 08:42 | Pulmonology Progress Note ---
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 His infection markers are improving but he remains hypoxemic. Suspect there is a component of fluid overload based on his CT scan. Recommendations: 1. Pneumonia: Procalcitonin decreasing. Will de-escalate antibiotics down to Rocephin and doxycycline. 2. Patient requires more aggressive diuretics. Will place on scheduled Lasix40 mg IV twice daily and consider addition of metolazone and aldactone if he fails to respond. Would target 1 L negative every 24 hours and follow creatinine and serum electrolytes. 3. Blood gas reviewed. No indication of hypercarbia 4. Continue oxygen titrated to keep saturations at or above 88%. 5. The patient would benefit by being upright and out of bed. This would diminish atelectasis and VQ mismatch and shunt physiology. Recommended the patient spends much time in the chair or ambulating as possible. Discussed with patient at bedside. We will continue to follow as the patient's oxygen is weaned. Feel free to contact us with additional questions or concerns Admission and Anticipated Discharge Date Admission Date: January 24, 2022 Subjective Patient seen and examined. EMR reviewed. The patient is seen and examined in the room. He is lying supine. He appears in no respiratory distress. His oxygen requirement was increased slightly overnight. He is not really expectorating any phlegm. No fevers chills or night sweats overnight. Review of Systems Review of Systems: All systems reviewed & are unremarkable except as noted in Subjective Physical Exam Constitutional: WD/WN, vitals as above no acute distress Respiratory: normal respiratory effort; no respiratory distress Auscultation: + diminished lung sounds Cardiovascular: Rate/Rhythm: regular rate and regular rhythm Vessels: normal peripheral pulses Extremities: no edema Gastrointestinal (Abdomen): Percussion/Palpation: abdomen soft; abdomen nontender Skin: no rashes, warm and dry Neurologic: no focal motor deficits Psychiatric: A+Ox3, euthymic affect Results & Data Results & Data ([facility]) Vital Signs (Past 12 Hours) Vital Signs Temp Pulse Pulse Resp BP Pulse Ox Pulse Ox 01/28/22 07:17 73 20 90 01/28/22 03:11 36.5 C 82 20 167/73 H 94 01/28/22 00:43 76 01/28/22 00:10 75 22 95 01/27/22 23:44 36.6 C 75 22 143/63 H 94 01/27/22 21:52 91 Critical Care Results & Data Vital Signs (Past 12 Hours) Vital Signs Temp Pulse Pulse Resp BP Pulse Ox Pulse Ox 01/28/22 07:17 73 20 90 01/28/22 03:11 36.5 C 82 20 167/73 H 94 01/28/22 00:43 76 01/28/22 00:10 75 22 95 01/27/22 23:44 36.6 C 75 22 143/63 H 94 01/27/22 21:52 91 Lab & Micro Results (Past 24 Hours) No Data to Display No Data to Display Blood Gas Barometric Pressure 730.8 mm/Hg 01/27/22 16:22 01/27/22 Arterial Blood pH 7.42 (7.35-7.45) 01/27/22 16:22 01/27/22 Arterial Blood Partial Pressure CO2 41 mmHg (35-46) 01/27/22 16:22 01/27/22 Arterial Blood Partial Pressure O2 65 mmHg (80-95) L 01/27/22 16:22 01/27/22 Arterial Blood HCO3 26 mmol/L (19-24) H 01/27/22 16:22 01/27/22 Arterial Blood Base Excess 0.8 mEq/L (-9-1.8) 01/27/22 16:22 01/27/22 Arterial Blood Oxygen Saturation 91.4 % (90-95) 01/27/22 16:22 01/27/22 Blood Gas Oxygen Given 10L 01/27/22 16:22 01/27/22 Ever Test POS (Pos) 01/27/22 16:22 01/27/22 Blood Gas Barometric Pressure 730.8 mm/Hg 01/27/22 16:22 01/27/22 Microbiology 01/24/22 16:45 Aerobic Blood Culture - Preliminary Blood No growth in Aerobic bottle after 48 hours. Anaerobic Blood Culture - Preliminary No growth in Anaerobic bottle after 48 hours. 01/24/22 16:20 Aerobic Blood Culture - Preliminary Blood No growth in Aerobic bottle after 48 hours. Anaerobic Blood Culture - Preliminary No growth in Anaerobic bottle after 48 hours. Diagnostic Findings (Past 24 Hours) Chest X-Ray 01/27/22 11:17 XR chest 1V portable CLINICAL HISTORY: CHF? TECHNIQUE: Single frontal radiograph of the chest was obtained. Comparison: Comparison is made to chest one view 01/24/2022 FINDINGS: No lines and tubes are seen. The cardiomediastinal silhouette is obscured. Multifocal airspace opacities are seen. Small bilateral pleural effusions are seen. IMPRESSION: Multiple airspace opacities are unchanged from prior exam. Small bilateral pleural effusions are again noted. ACT 112: Negative or not required by law. Electronically signed by: Kamran Modi M.D. 01/27/2022 12:[address] 01/27/22 16:15 CT SCAN OF THE CHEST WITHOUT IV CONTRAST CLINICAL HISTORY: Pneumonia. COMPARISON STUDY: Chest x-ray dated 01/27/2022. Chest CT dated 11/07/2020. TECHNIQUE: CT scan of the thorax was performed from the thoracic inlet to the upper abdomen. Images are reviewed in the axial, sagittal, and coronal planes. IV contrast was not administered for this examination as per the referring clinician. A dose lowering technique was utilized adhering to the principles of ALARA. The Examination is degraded by motion artifact. CT DOSE: 421.32 mGycm FINDINGS: Thyroid: Imaged portions of the thyroid gland are normal in size and attenuation. Thoracic aorta: There is mild atherosclerotic calcification of the thoracic aorta, which is normal in caliber and demonstrates bovine variant arch anatomy. Heart: The heart is enlarged and without pericardial effusion. The coronary arteries are densely calcified. Lungs and pleural spaces: Evaluation of the lung parenchyma is degraded by motion artifact. Extensive calcified pleural plaques are again seen bilaterally. There is mild diffuse bronchiectasis seen bilaterally with architectural distortion and parenchymal scarring throughout both lungs. There is superimposed groundglass change throughout the right lung and in the left upper lobe. Loculated pleural fluid is again seen along the left major fissure. A small thick-walled and loculated pleural collection at the left lung base seen on image #207 is likely unchanged from previous. This measures approximately 8.5 x 3 cm in axial dimension. Trace loculated pleural fluid seen posteriorly on the right is also unchanged (axial image #112). A focus of round atelectasis is again seen in the right upper lobe. Mild emphysematous change is suggested with a large bleb in the anterior left lung. The trachea and central airways are clear. Mediastinum: There is enlarged high right peritracheal node on image #14 which measures 15 mm in short axis. This is similar to previous. Numerous position subcentimeter mediastinal lymph nodes are not pathologically enlarged by size criteria. Traci: Not well assessed without IV contrast. Axillae: There is no axillary lymphadenopathy. Upper abdomen: Partially visualized upper abdominal viscera is within normal limits. Skeletal structures: The skeletal structures are osteopenic. No lytic or blastic bony lesions are seen. Postoperative change is noted in the right proximal humerus. There is a minimal superior endplate compression deformity of L1. IMPRESSION: 1. Extensive chronic parenchymal changes with evidence of asbestos-related pleural disease with pulmonary fibrosis and parenchymal scarring are similar to previous. 2. There is superimposed groundglass change throughout the right lung and in the left upper lobe. This could represent a superimposed infectious/inflammatory pneumonitis or possibly pulmonary edema. Clinical correlation will be essential. 3. Cardiomegaly. 4. Small loculated pleural collections are likely unchanged from previous. 5. Mildly enlarged mediastinal lymph nodes are unchanged from previous. 6. Additional findings as above. ACT 112: Negative or not required by law. Electronically signed by: Thanh Rand M.D. 01/27/2022 6:28 PM I & O Totals 24 Hours 01/27/22 01/28/22 01/29/22 06:59 06:59 06:59 Intake Total 815 / 815 885 / 885 Output Total 1303 / 1303 1877 / 1877 Balance -488 / -488 -992 / -992 Cumulative 01/24/22 15:51 thru 01/28/22 05:33 Intake Total 5295 Output Total 3855 Balance 1440 RT Ventilator Mngmt (Last Documented) Ventilator Ordered Settings Respiratory Rate 20 01/28/22 07:17 Ventilator - PT Measurements Respiratory Rate 20 PG Care Time/CCT Total # of Minutes Spent Total Time Spent with Patient: Total time spent is greater than 50% in coordination of care (as documented) at patient's floor/unit and/or counseling patient: Coding Level of Care Code 46960 Subseq Hosp Care Lvl 2 Diagnoses Pneumonia J18.[address] scan of lung R91.8
[2022-01-28] MEDS ORDERED: FUROSEMIDE INJ 20 MG/2 ML VIAL IV SCH (09:00)
[2022-01-28 09:01] LABS: Hematocrit (blood only) 28.3 % (42-52); Hemoglobin 9.2 g/dL (14.0-18.0); Mean Corpuscular Hemoglobin 31.3 pg (25-34); Mean Corpuscular Hgb Conc 32.5 g/dL (32-36); Mean Corpuscular Volume 96.3 fL (80-100); Mean Platelet Volume 12.5 fL (7.4-10.4); Platelet Count 114 K/uL (130-400); RDW Coefficient of Variation 16.5 % (11.5-14.5); RDW Standard Deviation 57.6 fL (36.4-46.3); Red Blood Count 2.94 M/uL (4.7-6.1); White Blood Count 11.19 K/uL (4.8-10.8)
[2022-01-28 09:06] LABS: Eosinophils # (auto) 0.01 K/uL (0-0.5); Eosinophils % (auto) 0.1 %; Immature Granulocytes # (auto) 0.09 K/uL (0.00-0.02); Immature Granulocytes % (auto) 0.8 %; Lymphocytes # (auto) 0.53 K/uL (1.2-3.4); Lymphocytes % (auto) 4.7 %; Monocytes # (auto) 1.23 K/uL (0.11-0.59); Neutrophils # (auto) 9.33 K/uL (1.4-6.5); Neutrophils % (auto) 83.4 %; Platelet Estimate Decreased (Normal)
[2022-01-28] MEDS: METOPROLOL TARTRATE 25 MG TAB PO SCH ×2 (09:25→20:25)
[2022-01-28] MEDS: APIXABAN 5 MG TABLET PO SCH ×2 (09:26→20:24)
[2022-01-28] MEDS: ROSUVASTATIN CALCIUM 20 MG TAB PO SCH (09:26)
[2022-01-28] MEDS: FLUTICASONE/VILANTEROL 200/25MCG 14 PUFFS/INHALER INH SCH (09:26)
[2022-01-28] MEDS: SERTRALINE HCL 50 MG TABLET PO SCH (09:27)
[2022-01-28] MEDS: LANSOPRAZOLE 30 MG SOLTAB PO SCH (09:27)
[2022-01-28] MEDS: CLOPIDOGREL BISULFATE 75 MG TAB PO SCH (09:27)
[2022-01-28] MEDS: AMIODARONE 200 MG TAB PO SCH (09:27)
[2022-01-28] MEDS: UMECLIDINIUM BROMIDE 62.5MCG/BLISTER 7 PUFFS/INHALER INH SCH (09:28)
[2022-01-28] MEDS: DOXYCYCLINE HYCLATE 100 MG CAP PO SCH ×2 (09:44→20:23)
[2022-01-28] MEDS: FUROSEMIDE 40 MG/4 ML VIAL IV SCH ×2 (09:46→18:20)
--- NOTE | 2022-01-28 11:03 | Hospitalist Progress Note ---
Date of Service January 28, 2022 Assessment & Plan (1) Aspiration pneumonia: (2) Respiratory failure, acute and chronic: (3) Asbestosis: (4) Atrial fibrillation: (5) CAD (coronary artery disease): (6) Chronic obstructive pulmonary disease: Plan: This is an 81-year-old male who presents with acute on chronic respiratory failure. 1. Acute on chronic respiratory failure, history of chronic obstructive pulmonary disease, asbestosis, chronically on oxygen 3 liters, had mild wheezing and rhonchi on exam on admission. Symptoms started after vomiting, possible aspiration pneumonia playing the role. He also has a history of sleep apnea, but since last one year is not using CPAP. No wheezing on exam now and feels well, still hypoxic. CT scan with poss pulmonary edema and pulm would like him more aggressively diuresed and out of bed to chair as often as possible. Lasix was increased to 40mg IV BID with gloal output net 1L daily. Will monitor daily lytes. Abx de-escalated to Rocephin and doxycycline today (01/28). Steroids stopped 01/27 and agree with holding in the setting of possible bacterial infection. 1a. Pneumonia 1b. Possible pulmonary edema 1c. small loculated pleural collections unchanged from previous CT in Oct 2020. 2. Diabetes, not on any medication. We will place him on insulin sliding scale, follow the blood sugars, follow HbA1c levels.6.3 3. History of atrial fibrillation, on amiodarone, metoprolol and Eliquis. Currently rate controlled 4. History of embolic cerebrovascular accident, on Plavix, Eliquis, statin. 5. History of hypertension, on metoprolol. We will monitor the blood pressure. 6. History of depression, on sertraline. 7. History of hyperlipidemia, on statin. 8. History of chronic kidney disease stage III, at baseline. Cont to monitor on high dose Lasix. 9. Prolonged Qt. To avoid qt prolonging drugs. EKG PRN. 10. Deep venous thrombosis prophylaxis, on Eliquis. DISPOSITION: PT/OT prior to discharge. Social service to help with discharge planning. Transfer back to [facility] when stable. CODE STATUS: Full code [facility]vel[facility] and Anticipated Discharge Date Admission Date: January 24, 2022 Subjective 81 yo M with a h/o chronic respiratory failure on home oxygen presents with worsening hypoxia. Denies cough, fevers, chills no sputum production feels well overall just knows "my numbers are low" denies any insults but does report recent vomiting denies any known nancy aspiration. No swallowing issues and seen by speech path in Nov 16 with no indication for full formal [employer]DROLOGIST intervention at that time. Review of Systems Review of Systems: All systems were reviewed and negative except as indicated on subjective above. Physical Exam Physical Exam: CONSTITUTIONAL: WNWD, vitals as above, generally well- appearing, NAD EYES: normal conjunctivae, no scleral icterus, ENT: external ear and nose normal,MMM NECK: trachea midline, RESPIRATORY: possible fine crackles throughout all durbin, although mostly clear. No rales or wheezes, normal respiratory effort diminished breath sounds throughout. CARDIOVASCULAR: regular rate and rhythm, S1 and 2 heard without murmurs, gallops or rubs, no JVD, no peripheral edema CHEST: inspection of chest was normal GASTROINTESTINAL: soft, nontender, no guarding, ND MUSCULOSKELETAL: strength 5/5 throughout, head is normocephalic and atraumatic SKIN: warm and dry NEUROLOGIC: CN 2-12 grossly intact, no sensory deficit, normal cognition, normal speech PSYCHIATRIC: alert cooperative and oriented to person, place and time. Results & Data Results & Data ([facility]) Vital Signs (Past 12 Hours) Vital Signs Temp Pulse Pulse Resp BP Pulse Ox 01/28/22 08:36 36.5 C 75 27 H 109/60 94 01/28/22 07:17 73 20 90 01/28/22 03:11 36.5 C 82 20 167/73 H 94 01/28/22 00:43 76 01/28/22 00:10 75 22 95 01/27/22 23:44 36.6 C 75 22 143/63 H 94 Laboratory Results Short CBC 01/28/22 Range/Units 07:00 WBC 11.19 H (4.8-10.8) K/uL Hgb 9.2 L (14.0-18.0) g/dL Hct 28.3 L (42-52) % Plt Count 114 L (130-400) K/uL BMP 01/28/22 07:00 Sodium 137 Potassium 4.1 Chloride 103 Carbon Dioxide 29 BUN 31 H Creatinine 1.32 Glucose 132 H Calcium 8.4 L Medications Administered Current Inpatient Medications Acetaminophen (Acetaminophen 325 Mg Tab) 650 mg PO Q4H PRN PRN Reason: Pain or Fever Stop: 02/23/22 22:14 Albuterol (Albuterol Hfa 8 Gm Inhaler) 2 puffs INH Q6 PRN PRN Reason: Shortness Of Breath Or Wheezin Stop: 02/23/22 22:14 Amiodarone HCl (Amiodarone 200 Mg Tab) 200 mg PO QAM [facility] Stop: 02/24/22 08:59 Last Admin: 01/28/22 09:27 Dose: 200 mg Documented by: Apixaban (Apixaban 5 Mg Tablet) 5 mg PO BID [facility] Stop: 02/23/22 22:14 Last Admin: 01/28/22 09:26 Dose: 5 mg Documented by: Clopidogrel Bisulfate (Clopidogrel Bisulfate 75 Mg Tab) 75 mg PO DAILY [facility] Stop: 02/24/22 08:59 Last Admin: 01/28/22 09:27 Dose: 75 mg Documented by: Dextrose (Dextrose 50% 50 Ml Syringe) 25 - 50 ml IV UD PRN; Protocol PRN Reason: Hypoglycemia Protocol Stop: 02/23/22 22:44 Doxycycline Hyclate (Doxycycline Hyclate 100 Mg Cap) 100 mg PO BID [facility] Stop: 02/04/22 08:59 Last Admin: 01/28/22 09:44 Dose: 100 mg Documented by: Fluticasone/Vilanterol (Fluticasone/Vilanterol 200/25mcg 14 Puffs/Inhaler) 1 puffs INH DAILY [facility] Stop: 02/24/22 08:59 Last Admin: 01/28/22 09:26 Dose: 1 puffs Documented by: Furosemide (Furosemide 40 Mg/4 Ml Vial) 40 mg IV [id number] [facility] Stop: 02/27/22 08:59 Last Admin: 01/28/22 09:46 Dose: 40 mg Documented by: Glucagon (Glucagon For Inj 1 Mg Vial) 1 mg IM UD PRN; Protocol PRN Reason: Hypoglycemia Protocol Stop: 02/23/22 22:44 Glucose (Glucose 40% Gel 15 Gm Tube) 15 - 30 gm PO UD PRN; Protocol PRN Reason: Hypoglycemia Protocol Stop: 02/23/22 22:44 Glucose (Glucose 10 Tabs/Tube) 4 - 8 tabs PO UD PRN; Protocol PRN Reason: Hypoglycemia Protocol Stop: 02/23/22 22:44 Promethazine HCl 12.5 mg/ (Sodium Chloride) 50.5 mls @ 202 mls/hr IV Q6H PRN PRN Reason: Nausea And Vomiting Stop: 02/23/22 22:14 Ceftriaxone Sodium 2,000 mg/ (Dextrose) 70 mls @ 100 mls/hr IV Q24H [facility]; Protocol Stop: 02/04/22 11:59 Insulin Aspart (Insulin Aspart Per Unit) 0 units SC ACHS [facility] Stop: 02/23/22 22:14 Last Admin: 01/28/22 08:37 Dose: 7 units Documented by: Ipratropium Pindall (Ipratropium Pindall Neb Soln 0.02% 2.5 Ml Vial) 0.5 mg INH Q6R [facility] Stop: 02/23/22 22:14 Last Admin: 01/28/22 07:17 Dose: 0.5 mg Documented by: Lansoprazole (Lansoprazole 30 Mg Soltab) 30 mg PO QAM [facility] Stop: 02/24/22 08:59 Last Admin: 01/28/22 09:27 Dose: 30 mg Documented by: Levalbuterol HCl (Levalbuterol 1.25mg/0.5ml Neb) 1.25 mg INH Q6R [facility] Stop: 02/23/22 22:14 Last Admin: 01/28/22 07:17 Dose: 1.25 mg Documented by: Levalbuterol HCl (Levalbuterol Hcl 1.25 Mg/3 Ml Neb) 1.25 mg NEB Q2H PRN; Protocol PRN Reason: Shortness Of Breath Or Wheezing Stop: 02/23/22 22:14 Metoprolol Tartrate (Metoprolol Tartrate 25 Mg Tab) 25 mg PO BID [facility] Stop: 02/23/22 22:14 Last Admin: 01/28/22 09:25 Dose: 25 mg Documented by: Miscellaneous (Carbohydrates For Hypoglycemia ) 15 - 30 gm PO UD PRN PRN Reason: Hypoglycemia Treatment Stop: 02/23/22 22:44 Nitroglycerin (Nitroglycerin Sl 0.4 Mg/Tab Tab) 0.4 mg SL UD PRN PRN Reason: Chest Pain Stop: 02/23/22 22:14 Polyethylene Glycol (Polyethylene (Miralax) 17 Gm Pack) 17 gm PO DAILY PRN PRN Reason: Constipation Stop: 02/23/22 22:14 Rosuvastatin Calcium (Rosuvastatin Calcium 20 Mg Tab) 20 mg PO QAM [facility] Stop: 02/24/22 08:59 Last Admin: 01/28/22 09:26 Dose: 20 mg Documented by: Sertraline HCl (Sertraline Hcl 50 Mg Tablet) 50 mg PO DAILY [facility] Stop: 02/24/22 08:59 Last Admin: 01/28/22 09:27 Dose: 50 mg Documented by: Tramadol HCl (Tramadol Hcl 50 Mg Tablet) 50 mg PO Q6 PRN PRN Reason: Pain Stop: 02/23/22 22:14 Umeclidinium Pindall (Umeclidinium Pindall 62.5mcg/Blister 7 Puffs/Inhaler) 1 puffs INH QAM [facility] Stop: 02/24/22 08:59 Last Admin: 01/28/22 09:28 Dose: 1 puffs Documented by: (1) Chronic obstructive pulmonary disease COPD type: unspecified COPD Qualified Code(s): J44.9 - Chronic obstructive pulmonary disease, unspecified
[2022-01-28] MEDS: cefTRIAXone SODIUM 2,000 MG in DEXTROSE 5% 50 ML IV SCH (14:29)
[2022-01-28] MEDS: DOXYCYCLINE HYCLATE 100 MG in DEXTROSE 5% 100 ML IV SCH (23:46)
[2022-01-29] MEDS: IPRATROPIUM BROMIDE NEB SOLN 0.02% 2.5 ML VIAL INH SCH ×4 (00:05→20:01)
[2022-01-29] MEDS: LEVALBUTEROL 1.25MG/0.5ML NEB INH SCH ×4 (00:05→20:01)
[2022-01-29 06:55] LABS: Hematocrit (blood only) 32.9 % (42-52); Hemoglobin 10.6 g/dL (14.0-18.0); Mean Corpuscular Hemoglobin 31.1 pg (25-34); Mean Corpuscular Hgb Conc 32.2 g/dL (32-36); Mean Corpuscular Volume 96.5 fL (80-100); Mean Platelet Volume 11.9 fL (7.4-10.4); Nucleated RBC # (auto) 0.02 K/uL (0-0); Nucleated RBC % (auto) 0.2 %; Platelet Count 105 K/uL (130-400); RDW Coefficient of Variation 16.7 % (11.5-14.5); RDW Standard Deviation 59.1 fL (36.4-46.3); Red Blood Count 3.41 M/uL (4.7-6.1); White Blood Count 11.18 K/uL (4.8-10.8)
[2022-01-29 07:20] LABS: Basophils # (auto) 0.01 K/uL (0-0.2); Basophils % (auto) 0.1 %; Eosinophils # (auto) 0.01 K/uL (0-0.5); Eosinophils % (auto) 0.1 %; Immature Granulocytes # (auto) 0.25 K/uL (0.00-0.02); Immature Granulocytes % (auto) 2.2 %; Lymphocytes # (auto) 0.92 K/uL (1.2-3.4); Lymphocytes % (auto) 8.2 %; Monocytes % (auto) 16.1 %; Neutrophils # (auto) 8.19 K/uL (1.4-6.5); Neutrophils % (auto) 73.3 %
[2022-01-29 07:23] LABS: BUN Creatinine Ratio 28.4 (10-20); Calcium 8.7 mg/dl (8.5-10.1); Creatinine Clr Calc Pharmacy 41.4 ml/min; Est GFR (African American) 53.4 ml/min; Est GFR (Non-African American) 46.1 ml/min; Magnesium 1.7 mg/dl (1.7-2.4); Potassium 3.5 mmol/L (3.5-5.1)
[2022-01-29] MEDS: INSULIN ASPART PER UNIT SC SCH ×4 (08:13→19:49)
[2022-01-29] MEDS: FLUTICASONE/VILANTEROL 200/25MCG 14 PUFFS/INHALER INH SCH (08:36)
[2022-01-29] MEDS: METOPROLOL TARTRATE 25 MG TAB PO SCH ×2 (08:37→19:52)
[2022-01-29] MEDS: FUROSEMIDE 40 MG/4 ML VIAL IV SCH ×2 (08:37→09:29)
[2022-01-29] MEDS: APIXABAN 5 MG TABLET PO SCH ×2 (08:37→19:51)
[2022-01-29] MEDS: CLOPIDOGREL BISULFATE 75 MG TAB PO SCH (08:38)
[2022-01-29] MEDS: ROSUVASTATIN CALCIUM 20 MG TAB PO SCH (08:38)
[2022-01-29] MEDS: LANSOPRAZOLE 30 MG SOLTAB PO SCH (08:38)
[2022-01-29] MEDS: DOXYCYCLINE HYCLATE 100 MG CAP PO SCH ×2 (08:38→19:52)
[2022-01-29] MEDS: SERTRALINE HCL 50 MG TABLET PO SCH (08:38)
[2022-01-29] MEDS: AMIODARONE 200 MG TAB PO SCH (08:38)
[2022-01-29] MEDS: UMECLIDINIUM BROMIDE 62.5MCG/BLISTER 7 PUFFS/INHALER INH SCH (08:39)
--- NOTE | 2022-01-29 09:02 | Pulmonology Progress Note ---
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 His infection markers are improving but he remains hypoxemic. Suspect there is a component of fluid overload based on his CT scan. Recommendations: 1. Pneumonia: Procalcitonin decreasing. Complete course of Rocephin and doxycycline. Can de-escalate oral cefuroxime and doxycycline per primary service 2. Able to achieve net negative status over the last 24 hours. Mild bump in serum creatinine. Will decrease Lasix to 40 mg IV daily. Continue to follow kidney function 3. While talking to the patient, I was able to turn his oxygen from 12 L down to 8 L. He maintained oxygen saturations above 92% throughout this maneuver. I suspect we are trying to target a higher oxygen concentration than is actually necessary. Order will be entered for RT to try and taper his oxygen to maintain oxygen saturations at or above 88%. He likely will require increase in his oxygen amount with activity and ambulation. 4. Continue incentive spirometry, out of bed to chair, and ambulation as tolerated. This would diminish atelectasis and VQ mismatch and shunt physiology. Recommended the patient spends much time in the chair or ambulating as possible. Discussed with patient at bedside. We will continue to follow as the patient's oxygen is weaned. Feel free to contact us with additional questions or concerns Admission and Anticipated Discharge Date Admission Date: January 24, 2022 Subjective Patient seen and examined. EMR reviewed. Patient states that he is feeling better. He was diuresed yesterday and is down about a liter and a half. His oxygen requirement remains high however I suspect we are targeting a higher number than necessary with regards to his saturations. He denies any cough or sputum production. He is doing incentive spirometry. He is out of bed to the chair. He is not coughing or expectorating phlegm. No wheezing Review of Systems Review of Systems: All systems reviewed & are unremarkable except as noted in Subjective Physical Exam Constitutional: WD/WN, vitals as above no acute distress Respiratory: normal respiratory effort; no respiratory distress Auscultation: + diminished lung sounds Cardiovascular: Rate/Rhythm: regular rate and regular rhythm Vessels: normal peripheral pulses Extremities: no edema Gastrointestinal (Abdomen): Percussion/Palpation: abdomen soft; abdomen nontender Skin: no rashes, warm and dry Neurologic: no focal motor deficits Psychiatric: A+Ox3, euthymic affect Results & Data Results & Data ([facility]) Vital Signs (Past 12 Hours) Vital Signs Temp Pulse Pulse Resp BP Pulse Ox 01/29/22 07:37 66 01/29/22 07:06 66 20 94 01/29/22 02:12 36.6 C 75 22 137/63 93 01/29/22 00:05 74 23 93 01/29/22 00:00 77 01/28/22 22:28 36.8 C 77 22 125/62 92 Laboratory Results 01/29/22 06:37 01/29/22 06:37 Procalcitonin continues to decrease down to 0.8 Diagnostic Findings No new imaging PG Care Time/CCT Total # of Minutes Spent Total Time Spent with Patient: Total time spent is greater than 50% in coordination of care (as documented) at patient's floor/unit and/or counseling patient: Coding Level of Care Code 63543 Subseq Hosp Care Lvl 2 Diagnoses Pneumonia J18.[address] scan of lung R91.8
[2022-01-29] MEDS: cefTRIAXone SODIUM 2,000 MG in DEXTROSE 5% 50 ML IV SCH (12:42)
--- NOTE | 2022-01-29 13:47 | Hospitalist Progress Note ---
Date of Service January 29, 2022 Assessment & Plan (1) Aspiration pneumonia: (2) Respiratory failure, acute and chronic: (3) Asbestosis: (4) Atrial fibrillation: (5) CAD (coronary artery disease): (6) Chronic obstructive pulmonary disease: Plan: This is an 81-year-old male who presents with acute on chronic respiratory failure. He is being managed for the followin. Acute on chronic respiratory failure: history of chronic obstructive pulmonary disease, asbestosis, chronically on oxygen 3 liters, had mild wheezing and rhonchi on exam on admission. Symptoms started after vomiting, possible aspiration pneumonia playing the role. He also has a history of sleep apnea, but since last one year is not using CPAP. Bibasal crackles noted, diminished breath sounds, requiring 8L O2 at bedside. CT scan with possible pulmonary edema, Pulm evaluated, being diuresed and out of bed to chair as often as possible. Lasix was decreased to 40mg IV daily d/t slight bump in creatinine. Monitor BMP daily. Steroids stopped 01/27 . Abx de-escalated to Rocephin and doxycycline on (01/28). C/w Antibiotics. 1a. Pneumonia 1b. Possible pulmonary edema 1c. small loculated pleural collections unchanged from previous CT in Oct 2020. 2. Diabetes, not on any medication. C/w SSI, follow the blood sugars, A1c 6.3% 3. History of atrial fibrillation, on amiodarone, metoprolol and Eliquis. Cu rrently rate controlled #. Other chronic medical conditions: Embolic CVA/HTN/depression/HLD/CKD stage III/prolonged QT Continue with/resume home medications as and when appropriate. #. DVT prophylaxis: On Eliquis DISPOSITION: PT/OT prior to discharge. Social service to help with discharge planning. Transfer back to [facility] when stable. CODE STATUS: Full code Admission and Anticipated Discharge Date Admission Date: January 24, 2022 Subjective Patient seen and examined at bedside as a follow-up of aspiration pneumonia, acute on chronic respiratory failure and likely pulmonary edema. Patient lying in bed, on 8 L nasal cannula oxygen, comfortable, NAD, no new acute events overnight. Patient reports eating okay and having adequate output via his ostomy bag. Patient denies cough or wheezing. Patient denies any fever/headache/chills/chest pain/palpitations/belly pain/other review of symptoms. Physical Exam Physical Exam: GENERAL: Alert and oriented x3. NAD, on 8L NC O2. HEENT: No pallor, no icterus. Pupils equal, round and reactive to light. Oral mucosa moist. NECK: No JVD, no neck masses. HEART: S1 and S2 heard. Regular rate and rhythm. No murmur, no gallop. RESPIRATORY SYSTEM: Normal AP diameter. No accessory muscle use. No wheezing, bibasal crackles. ABDOMEN: Soft, bowel sounds present, nontender, no distention. Ostomy bag with nonbloody collection noted. CENTRAL NERVOUS SYSTEM: No facial droop. Speech is clear. Obeys simple commands. Moves extremities. EXTREMITIES: No edema, no erythema seen. Results & Data Results & Data ([facility]) Vital Signs (Past 12 Hours) Vital Signs Temp Pulse Pulse Resp BP Pulse Ox 01/29/22 12:51 76 16 92 01/29/22 12:00 36.8 C 88 18 136/76 97 01/29/22 07:37 66 01/29/22 07:06 66 20 94 01/29/22 02:12 36.6 C 75 22 137/63 93 (1) Chronic obstructive pulmonary disease COPD type: unspecified COPD Qualified Code(s): J44.9 - Chronic obstructive pulmonary disease, unspecified
[2022-01-30] MEDS: LEVALBUTEROL 1.25MG/0.5ML NEB INH SCH ×4 (00:24→19:24)
[2022-01-30] MEDS: IPRATROPIUM BROMIDE NEB SOLN 0.02% 2.5 ML VIAL INH SCH ×4 (00:24→19:24)
[2022-01-30 06:34] LABS: Hemoglobin 10.3 g/dL (14.0-18.0); Mean Corpuscular Hemoglobin 31.3 pg (25-34); Mean Corpuscular Hgb Conc 33.2 g/dL (32-36); Mean Corpuscular Volume 94.2 fL (80-100); RDW Coefficient of Variation 16.8 % (11.5-14.5); RDW Standard Deviation 58.1 fL (36.4-46.3); Red Blood Count 3.29 M/uL (4.7-6.1); White Blood Count 11.69 K/uL (4.8-10.8)
[2022-01-30 06:57] LABS: BUN Creatinine Ratio 30.8 (10-20); Calcium 8.6 mg/dl (8.5-10.1); Creatinine Clr Calc Pharmacy 44.5 ml/min; Est GFR (African American) 58.9 ml/min; Est GFR (Non-African American) 50.8 ml/min; Magnesium 1.8 mg/dl (1.7-2.4); Phosphorus 2.8 mg/dl (2.5-4.9); Potassium 3.6 mmol/L (3.5-5.1)
[2022-01-30 06:59] LABS: Mean Platelet Volume 11.5 fL (7.4-10.4); Platelet Count 77 K/uL (130-400); Platelet Estimate Decreased (Normal)
[2022-01-30] MEDS: UMECLIDINIUM BROMIDE 62.5MCG/BLISTER 7 PUFFS/INHALER INH SCH (07:32)
[2022-01-30] MEDS: LANSOPRAZOLE 30 MG SOLTAB PO SCH (07:32)
[2022-01-30] MEDS: METOPROLOL TARTRATE 25 MG TAB PO SCH ×2 (07:32→19:34)
[2022-01-30] MEDS: SERTRALINE HCL 50 MG TABLET PO SCH (07:32)
[2022-01-30] MEDS: FLUTICASONE/VILANTEROL 200/25MCG 14 PUFFS/INHALER INH SCH (07:32)
[2022-01-30] MEDS: ROSUVASTATIN CALCIUM 20 MG TAB PO SCH (07:32)
[2022-01-30] MEDS: AMIODARONE 200 MG TAB PO SCH (07:33)
[2022-01-30] MEDS: DOXYCYCLINE HYCLATE 100 MG CAP PO SCH ×2 (07:33→19:33)
[2022-01-30] MEDS: CLOPIDOGREL BISULFATE 75 MG TAB PO SCH (07:33)
[2022-01-30] MEDS: APIXABAN 5 MG TABLET PO SCH ×2 (07:33→19:34)
[2022-01-30] MEDS: FUROSEMIDE 40 MG/4 ML VIAL IV SCH (07:33)
[2022-01-30] MEDS: INSULIN ASPART PER UNIT SC SCH ×4 (08:23→19:33)
--- NOTE | 2022-01-30 08:36 | Pulmonology Progress Note ---
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 His infection markers are improving but he remains hypoxemic. Suspect there is a component of fluid overload based on his CT scan. Suspect some of this is the acute recognition of a chronic problem as I suspect the patient's oxygen saturations have routinely been in the high 80% range on supplemental oxygen. Recommendations: 1. Pneumonia: Procalcitonin decreasing. Complete course of Rocephin and doxycycline. Can de-escalate oral cefuroxime and doxycycline per primary service 2. Continue Lasix 40 mg IV daily. Kidney function better today. Potassium replacement per primary service 3. Patient was turned down to 7 L/min during my evaluation and maintained oxygen saturations around 89-90. Recommend discussion with case management to see whether or not we can get him a high capacity oxygen concentrator to go home with. If this is the case, the patient can likely be dismissed home. 4. Continue incentive spirometry, out of bed to chair, and ambulation as tolerated. This would diminish atelectasis and VQ mismatch and shunt physiology. Recommended the patient spends much time in the chair or ambulating as possible. Discussed with patient and nurse at bedside. We will continue to follow as the patient's oxygen is weaned. Feel free to contact us with additional questions or concerns Admission and Anticipated Discharge Date Admission Date: January 24, 2022 Subjective Patient seen and examined. EMR reviewed. The patient states that he is doing well. He feels that his baseline. His oxygen continues to be titrated above levels that are necessary. He is not coughing or wheezing. He is up to the bedside chair without any difficulty. He feels his breathing is back to baseline. The patient relates that he previously had a high capacity oxygen concentrator but apparently this was changed out to his current home unit which can only go up to 5 L/min. Review of Systems Review of Systems: Unchanged from prior Physical Exam Constitutional: WD/WN, vitals as above no acute distress Respiratory: normal respiratory effort; no respiratory distress Auscultation: + diminished lung sounds Cardiovascular: Rate/Rhythm: regular rate and regular rhythm Vessels: normal peripheral pulses Extremities: no edema Gastrointestinal (Abdomen): Percussion/Palpation: abdomen soft; abdomen nontender Skin: no rashes, warm and dry Neurologic: no focal motor deficits Psychiatric: A+Ox3, euthymic affect Results & Data Results & Data ([facility]) Vital Signs (Past 12 Hours) Vital Signs Temp Pulse Pulse Resp BP Pulse Ox Pulse Ox 01/30/22 07:14 66 18 93 01/30/22 07:11 36.6 C 69 18 130/66 92 01/30/22 03:58 36.9 C 73 22 122/62 96 01/30/22 00:24 80 20 95 01/30/22 00:00 78 01/29/22 23:14 36.6 C 79 24 122/58 L 95 01/29/22 22:00 96 Laboratory Results 01/30/22 06:11 01/30/22 06:11 Diagnostic Findings No new imaging PG Care Time/CCT Total # of Minutes Spent Total Time Spent with Patient: Total time spent is greater than 50% in coordination of care (as documented) at patient's floor/unit and/or counseling patient: Coding Level of Care Code 19152 Subseq Hosp Care Lvl 2 Diagnoses Pneumonia J18.[address] scan of lung R91.8
[2022-01-30] MEDS: cefTRIAXone SODIUM 2,000 MG in DEXTROSE 5% 50 ML IV SCH (12:02)
[2022-01-30] MEDS ORDERED: POTASSIUM CHLORIDE CRTAB 20 MEQ TABCR PO STA (17:17)
--- NOTE | 2022-01-30 17:18 | Hospitalist Progress Note ---
Date of Service January 30, 2022 Assessment & Plan (1) Aspiration pneumonia: (2) Respiratory failure, acute and chronic: (3) Asbestosis: (4) Atrial fibrillation: (5) CAD (coronary artery disease): (6) Chronic obstructive pulmonary disease: Plan: This is an 81-year-old male who presents with acute on chronic respiratory failure. He is being managed for the followin. Acute on chronic respiratory failure: history of chronic obstructive pulmonary disease, asbestosis, chronically on oxygen 3 liters, had mild wheezing and rhonchi on exam on admission. Symptoms started after vomiting, possible aspiration pneumonia playing the role. He also has a history of sleep apnea, but since last one year is not using CPAP. Bibasal crackles noted, diminished breath sounds, requiring 7L O2 at bedside. CT scan with possible pulmonary edema, Pulm evaluated, being diuresed and out of bed to chair as often as possible. c/w lasix 40mg IV daily. Monitor BMP daily. Replete electrolytes as appropriate Steroids stopped 01/27 . Abx de-escalated to Rocephin and doxycycline on (01/28). rocephin changed to cefuroxime on 01/30. C/w Antibiotics. 1a. Pneumonia 1b. Possible pulmonary edema 1c. small loculated pleural collections unchanged from previous CT in Oct 2020. 2. Diabetes, not on any medication. C/w SSI, follow the blood sugars, A1c 6.3% 3. History of atrial fibrillation, on amiodarone, metoprolol and Eliquis. Currently rate controlled #. Other chronic medical conditions: Embolic CVA/HTN/depression/HLD/CKD stage III/prolonged QT Continue with/resume home medications as and when appropriate. #. DVT prophylaxis: On Eliquis DISPOSITION: PT/OT prior to discharge. Social service to help with discharge planning. Transfer back to [facility] when stable. Will need high capacity O2 concentrator upon DC. CODE STATUS: Full code Admission and Anticipated Discharge Date Admission Date: January 24, 2022 Subjective Patient seen and examined at bedside as a follow-up of aspiration pneumonia, acute on chronic respiratory failure and likely pulmonary edema. Patient lying in bed, on 7 L nasal cannula oxygen, comfortable, NAD, no new acute events overnight. Pt reports decreasing saturation with movement. Pt reports feeling better. Patient reports eating okay and having adequate output via his ostomy bag. Patient denies cough or wheezing. Patient denies any fever/headache/chills/chest pain/palpitations/belly pain/other review of symptoms. Physical Exam Physical Exam: GENERAL: Alert and oriented x3. NAD, on 7L NC O2. HEENT: No pallor, no icterus. Pupils equal, round and reactive to light. Oral mucosa moist. NECK: No JVD, no neck masses. HEART: S1 and S2 heard. Regular rate and rhythm. No murmur, no gallop. RESPIRATORY SYSTEM: Normal AP diameter. No accessory muscle use. No wheezing, bibasal crackles. ABDOMEN: Soft, bowel sounds present, nontender, no distention. Ostomy bag with nonbloody collection noted. CENTRAL NERVOUS SYSTEM: No facial droop. Speech is clear. Obeys simple commands. Moves extremities. EXTREMITIES: No edema, no erythema seen. Results & Data Results & Data ([facility]) Vital Signs (Past 12 Hours) Vital Signs Temp Pulse Pulse Resp BP Pulse Ox Pulse Ox 01/30/22 15:35 36.6 C 77 22 119/62 95 01/30/22 14:53 73 01/30/22 13:03 75 18 92 01/30/22 11:25 36.6 C 77 24 107/51 L 89 L 01/30/22 11:05 88 L 01/30/22 09:00 64 01/30/22 07:14 66 18 93 01/30/22 07:11 36.6 C 69 18 130/66 92 Pulse Ox Pulse Ox Pulse Ox 01/30/22 15:35 01/30/22 14:53 01/30/22 13:03 01/30/22 11:25 01/30/22 11:05 90 90 79 L 01/30/22 09:00 01/30/22 07:14 01/30/22 07:11 (1) Chronic obstructive pulmonary disease COPD type: unspecified COPD Qualified Code(s): J44.9 - Chronic obstructive pulmonary disease, unspecified
[2022-01-30] MEDS ORDERED: cefUROXime axetil 500 MG TAB PO SCH (21:00)
[2022-01-31] MEDS: LEVALBUTEROL 1.25MG/0.5ML NEB INH SCH ×4 (00:23→19:29)
[2022-01-31] MEDS: IPRATROPIUM BROMIDE NEB SOLN 0.02% 2.5 ML VIAL INH SCH ×4 (00:23→19:29)
[2022-01-31 07:25] LABS: BUN Creatinine Ratio 32.2 (10-20); Calcium 8.9 mg/dl (8.5-10.1); Creatinine Clr Calc Pharmacy 47.7 ml/min; Est GFR (African American) 64.2 ml/min; Est GFR (Non-African American) 55.4 ml/min; Magnesium 1.9 mg/dl (1.7-2.4); Potassium 3.8 mmol/L (3.5-5.1)
[2022-01-31] MEDS ORDERED: POTASSIUM CHLORIDE CRTAB 20 MEQ TABCR PO STA (07:28)
[2022-01-31] MEDS: APIXABAN 5 MG TABLET PO SCH ×2 (07:32→20:02)
[2022-01-31] MEDS: CLOPIDOGREL BISULFATE 75 MG TAB PO SCH (07:32)
[2022-01-31] MEDS: METOPROLOL TARTRATE 25 MG TAB PO SCH ×2 (07:32→20:02)
[2022-01-31] MEDS: FUROSEMIDE 40 MG/4 ML VIAL IV SCH (07:32)
[2022-01-31] MEDS: ROSUVASTATIN CALCIUM 20 MG TAB PO SCH (07:32)
[2022-01-31] MEDS: UMECLIDINIUM BROMIDE 62.5MCG/BLISTER 7 PUFFS/INHALER INH SCH (07:33)
[2022-01-31] MEDS: DOXYCYCLINE HYCLATE 100 MG CAP PO SCH ×2 (07:33→21:11)
[2022-01-31] MEDS: LANSOPRAZOLE 30 MG SOLTAB PO SCH (07:33)
[2022-01-31] MEDS: SERTRALINE HCL 50 MG TABLET PO SCH (07:33)
[2022-01-31] MEDS: FLUTICASONE/VILANTEROL 200/25MCG 14 PUFFS/INHALER INH SCH (07:33)
[2022-01-31] MEDS: cefUROXime axetil 500 MG TAB PO SCH ×2 (07:33→20:02)
[2022-01-31] MEDS: AMIODARONE 200 MG TAB PO SCH (07:33)
[2022-01-31] MEDS: INSULIN ASPART PER UNIT SC SCH ×4 (07:38→20:05)
--- NOTE | 2022-01-31 08:17 | Pulmonology Progress Note ---
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 His infection markers are improving but he remains hypoxemic. Suspect there is a component of fluid overload based on his CT scan. Suspect some of this is the acute recognition of a chronic problem as I suspect the patient's oxygen saturations have routinely been in the high 80% range on supplemental oxygen. Recommendations: 1. Pneumonia: Procalcitonin decreasing. Complete course of Rocephin and doxycycline. Can de-escalate oral cefuroxime and doxycycline per primary service 2. Continue Lasix 40 mg IV daily. Kidney function continues to improve. Can transition to oral Lasix 40mg daily when primary service feels appropriate. 3. Hypoxemia: Case management to see whether or not we can get him a high capacity oxygen concentrator to go home with. If this is the case, the patient can likely be dismissed home. Continue to wean oxygen as tolerated 4. Continue incentive spirometry, out of bed to chair, and ambulation as tolerated. This would diminish atelectasis and VQ mismatch and shunt physiology. Recommended the patient spend as much time in the chair or ambulating as possible. 5. History of sleep apnea: The patient is not compliant with CPAP as he states it makes his breathing worse. In an 81-year-old gentleman, I do not feel strongly about aggressively pursuing this at this time. Discussed with patient at bedside. We will continue to follow as the patient's oxygen is weaned. Feel free to contact us with additional questions or concerns. He appears significantly improved and approaching his baseline at this point in time. Pulmonary will sign off. Feel free to contact us if we can be of additional assistance Admission and Anticipated Discharge Date Admission Date: January 24, 2022 Subjective Patient seen and examined. EMR reviewed. The patient states that he is feeling well. He feels like he is back to baseline. We have been able to wean his oxygen down to about 6 or 7 L with saturations in the mid 90% range. He is not coughing or expectorating phlegm. He is up moving around the bedside without difficulty. Review of Systems Review of Systems: All systems reviewed & are unremarkable except as noted in Subjective Physical Exam Constitutional: WD/WN, vitals as above no acute distress Respiratory: normal respiratory effort; no respiratory distress Auscultation: + diminished lung sounds Cardiovascular: Rate/Rhythm: regular rate and regular rhythm Vessels: normal peripheral pulses Extremities: no edema Gastrointestinal (Abdomen): Percussion/Palpation: abdomen soft; abdomen nontender Skin: no rashes, warm and dry Neurologic: no focal motor deficits Psychiatric: A+Ox3, euthymic affect Results & Data Results & Data ([facility]) Vital Signs (Past 12 Hours) Vital Signs Temp Pulse Pulse Resp BP Pulse Ox 01/31/22 07:10 64 20 95 01/31/22 06:55 64 01/31/22 02:47 36.6 C 71 24 149/61 H 91 01/31/22 00:23 73 20 90 01/31/22 00:00 74 01/30/22 23:15 36.7 C 73 18 117/57 L 93 Laboratory Results 01/30/22 06:11 01/31/22 06:27 Diagnostic Findings No new imaging PG Care Time/CCT Total # of Minutes Spent Total Time Spent with Patient: Total time spent is greater than 50% in coordination of care (as documented) at patient's floor/unit and/or counseling patient: Coding Level of Care Code 58071 Subseq Hosp Care Lvl 2 Diagnoses Pneumonia J18.[address] scan of lung R91.8
[2022-01-31] MEDS: LEVALBUTEROL HCL 1.25 MG/3 ML NEB NEB PRN (12:45)
--- NOTE | 2022-01-31 14:30 | Hospitalist Progress Note ---
Date of Service January 31, 2022 Assessment & Plan (1) Aspiration pneumonia: (2) Respiratory failure, acute and chronic: (3) Asbestosis: (4) Atrial fibrillation: (5) CAD (coronary artery disease): (6) Chronic obstructive pulmonary disease: Plan: This is an 81-year-old male who presents with acute on chronic respiratory failure. He is being managed for the followin. Acute on chronic respiratory failure: history of chronic obstructive pulmonary disease, asbestosis, chronically on oxygen 3 liters, had mild wheezing and rhonchi on exam on admission. Symptoms started after vomiting, possible aspiration pneumonia playing the role. He also has a history of sleep apnea, but since last one year is not using CPAP. Bibasal crackles noted, diminished breath sounds, requiring 7L O2 at bedside. CT scan with possible pulmonary edema, Pulm evaluated, being diuresed and out of bed to chair as often as possible. c/w lasix 40mg IV daily. Monitor BMP daily. Replete electrolytes as appropriate. Reassess daily for transition to oral. Steroids stopped 01/27 . Abx de-escalated to Rocephin and doxycycline on (01/28). rocephin changed to cefuroxime on 01/30. Stop antibiotic after today's dose. 1a. Pneumonia 1b. Possible pulmonary edema 1c. small loculated pleural collections unchanged from previous CT in Oct 2020. 2. Diabetes, not on any medication. C/w SSI, follow the blood sugars, A1c 6.3% 3. History of atrial fibrillation, on amiodarone, metoprolol and Eliquis. Currently rate controlled #. Other chronic medical conditions: Embolic CVA/HTN/depression/HLD/CKD stage III/prolonged QT Continue with/resume home medications as and when appropriate. #. DVT prophylaxis: On Eliquis DISPOSITION: PT/OT prior to discharge. Social service to help with discharge planning. Transfer back to [facility] when stable. Will need high capacity O2 concentrator upon DC. CODE STATUS: Full code 01/31: Patient's daughter Antonella [[phone]] was given a phone call to provide general update, left voicemail to call us back and ask for Dr. Garcia. Admission and Anticipated Discharge Date Admission Date: January 24, 2022 Subjective Patient seen and examined at bedside as a follow-up of aspiration pneumonia, a cute on chronic respiratory failure and likely pulmonary edema. Patient lying in bed, on 7 L nasal cannula oxygen, comfortable, NAD, no new acute events overnight. Pt feels better. Patient reports eating okay and having adequate output via his ostomy bag. Patient denies cough or wheezing. Patient denies any fever/headache/chills/chest pain/palpitations/belly pain/other review of symptoms. Physical Exam Physical Exam: GENERAL: Alert and oriented x3. NAD, on 7L NC O2. HEENT: No pallor, no icterus. Pupils equal, round and reactive to light. Oral mucosa moist. NECK: No JVD, no neck masses. HEART: S1 and S2 heard. Regular rate and rhythm. No murmur, no gallop. RESPIRATORY SYSTEM: Normal AP diameter. No accessory muscle use. No wheezing, bibasal crackles. ABDOMEN: Soft, bowel sounds present, nontender, no distention. Ostomy bag with nonbloody collection noted. CENTRAL NERVOUS SYSTEM: No facial droop. Speech is clear. Obeys simple commands. Moves extremities. EXTREMITIES: No edema, no erythema seen. Results & Data Results & Data ([facility]) Vital Signs (Past 12 Hours) Vital Signs Temp Pulse Pulse Resp BP BP Pulse Ox 01/31/22 12:45 73 20 91 01/31/22 11:08 36.4 C L 78 15 124/70 92 01/31/22 07:45 37.0 C 69 21 135/37 L 95 01/31/22 07:10 64 20 95 01/31/22 06:55 64 01/31/22 02:47 36.6 C 71 24 149/61 H 91 (1) Chronic obstructive pulmonary disease COPD type: unspecified COPD Qualified Code(s): J44.9 - Chronic obstructive pulmonary disease, unspecified
[2022-02-01] MEDS: IPRATROPIUM BROMIDE NEB SOLN 0.02% 2.5 ML VIAL INH SCH ×4 (01:08→19:24)
[2022-02-01] MEDS: LEVALBUTEROL HCL 1.25 MG/3 ML NEB NEB PRN (01:08)
[2022-02-01] MEDS: LEVALBUTEROL 1.25MG/0.5ML NEB INH SCH (01:09)
[2022-02-01 07:02] LABS: Creatinine Clr Calc Pharmacy 49.5 ml/min; Est GFR (African American) 66.9 ml/min; Est GFR (Non-African American) 57.7 ml/min; Magnesium 1.9 mg/dl (1.7-2.4); Potassium 3.9 mmol/L (3.5-5.1)
[2022-02-01] MEDS: LEVALBUTEROL HCL 1.25 MG/3 ML NEB INH SCH ×3 (07:02→19:24)
[2022-02-01] MEDS ORDERED: POTASSIUM CHLORIDE 10 MEQ TABCR PO STA (07:20)
[2022-02-01] MEDS: ROSUVASTATIN CALCIUM 20 MG TAB PO SCH (08:31)
[2022-02-01] MEDS: FLUTICASONE/VILANTEROL 200/25MCG 14 PUFFS/INHALER INH SCH (08:31)
[2022-02-01] MEDS: FUROSEMIDE 40 MG/4 ML VIAL IV SCH (08:31)
[2022-02-01] MEDS: METOPROLOL TARTRATE 25 MG TAB PO SCH ×2 (08:32→20:41)
[2022-02-01] MEDS: AMIODARONE 200 MG TAB PO SCH (08:32)
[2022-02-01] MEDS: CLOPIDOGREL BISULFATE 75 MG TAB PO SCH (08:32)
[2022-02-01] MEDS: APIXABAN 5 MG TABLET PO SCH ×2 (08:32→20:41)
[2022-02-01] MEDS: LANSOPRAZOLE 30 MG SOLTAB PO SCH (08:32)
[2022-02-01] MEDS: SERTRALINE HCL 50 MG TABLET PO SCH (08:32)
[2022-02-01] MEDS: INSULIN ASPART PER UNIT SC SCH ×4 (08:33→20:14)
[2022-02-01] MEDS: UMECLIDINIUM BROMIDE 62.5MCG/BLISTER 7 PUFFS/INHALER INH SCH (11:48)
--- NOTE | 2022-02-01 14:25 | Hospitalist Progress Note ---
Date of Service February 01, 2022 Assessment & Plan (1) Aspiration pneumonia: (2) Respiratory failure, acute and chronic: (3) Asbestosis: (4) Atrial fibrillation: (5) CAD (coronary artery disease): (6) Chronic obstructive pulmonary disease: Plan: This is an 81-year-old male who presents with acute on chronic respiratory failure. He is being managed for the followin. Acute on chronic respiratory failure: history of chronic obstructive pulmonary disease, asbestosis, chronically on oxygen 3 liters, had mild wheezing and rhonchi on exam on admission. Symptoms started after vomiting, possible aspiration pneumonia playing the role. He also has a history of sleep apnea, but since last one year is not using CPAP. Bibasal crackles noted, diminished breath sounds, requiring 5L O2 at bedside. CT scan with possible pulmonary edema, Pulm evaluated, appreciate recs. Transition to PO lasix. Monitor BMP daily. Replete electrolytes as appropriate. s/p 7 day course of antibiotic 1a. Pneumonia 1b. Possible pulmonary edema 1c. small loculated pleural collections unchanged from previous CT in Oct 2020. 2. Diabetes, not on any medication. C/w SSI, follow the blood sugars, A1c 6.3% 3. History of atrial fibrillation, on amiodarone, metoprolol and Eliquis. Currently rate controlled #. Other chronic medical conditions: Embolic CVA/HTN/depression/HLD/CKD stage III/prolonged QT Continue with/resume home medications as and when appropriate. #. DVT prophylaxis: On Eliquis DISPOSITION: PT/OT. Social service to help with discharge planning. Transfer back to [facility] when stable. Will need high capacity O2 concentrator upon DC. CODE STATUS: Full code Admission and Anticipated Discharge Date Admission Date: January 24, 2022 Subjective Patient seen and examined at bedside as a follow-up of aspiration pneumonia, acute on chronic respiratory failure and likely pulmonary edema. Patient lying in bed, on 5 L nasal cannula oxygen, comfortable, NAD, no new acute events overnight. Pt feels better. Patient reports eating okay and having adequate output via his ostomy bag. Patient denies cough or wheezing. Patient denies any fever/headache/chills/chest pain/palpitations/belly pain/other review of symptoms. Physical Exam Physical Exam: GENERAL: Alert and oriented x3. NAD, on 5L NC O2. HEENT: No pallor, no icterus. Pupils equal, round and reactive to light. Oral mucosa moist. NECK: No JVD, no neck masses. HEART: S1 and S2 heard. Regular rate and rhythm. No murmur, no gallop. RESPIRATORY SYSTEM: Normal AP diameter. No accessory muscle use. No wheezing, bibasal crackles. ABDOMEN: Soft, bowel sounds present, nontender, no distention. Ostomy bag with nonbloody collection noted. CENTRAL NERVOUS SYSTEM: No facial droop. Speech is clear. Obeys simple commands. Moves extremities. EXTREMITIES: No edema, no erythema seen. Results & Data Results & Data ([facility]) Vital Signs (Past 12 Hours) Vital Signs Temp Pulse Pulse Resp BP Pulse Ox 02/01/22 12:54 67 20 96 02/01/22 11:14 36.8 C 73 18 124/53 L 96 02/01/22 07:14 37.0 C 63 19 117/55 L 97 02/01/22 07:12 70 02/01/22 07:02 72 20 96 02/01/22 03:27 36.7 C 74 20 132/59 L 93 (1) Chronic obstructive pulmonary disease COPD type: unspecified COPD Qualified Code(s): J44.9 - Chronic obstructive pulmonary disease, unspecified
[2022-02-02] MEDS: IPRATROPIUM BROMIDE NEB SOLN 0.02% 2.5 ML VIAL INH SCH ×4 (00:53→19:51)
[2022-02-02] MEDS: LEVALBUTEROL HCL 1.25 MG/3 ML NEB INH SCH ×4 (00:54→19:51)
[2022-02-02 07:02] LABS: Anion Gap 9 (3-11); BUN Creatinine Ratio 31.7 (10-20); Blood Urea Nitrogen 44 mg/dl (6-23); Calcium 8.8 mg/dl (8.5-10.1); Carbon Dioxide 26 mmol/L (21-32); Chloride 103 mmol/L (98-107); Creatinine Clr Calc Pharmacy 41.5 ml/min; Est GFR (African American) 54.3 ml/min; Est GFR (Non-African American) 46.9 ml/min; Glucose 146 mg/dl (70-99(Fasting)); Sodium 138 mmol/L (136-145)
[2022-02-02] MEDS: UMECLIDINIUM BROMIDE 62.5MCG/BLISTER 7 PUFFS/INHALER INH SCH (07:54)
[2022-02-02] MEDS: FLUTICASONE/VILANTEROL 200/25MCG 14 PUFFS/INHALER INH SCH (07:54)
[2022-02-02] MEDS: ROSUVASTATIN CALCIUM 20 MG TAB PO SCH (07:55)
[2022-02-02] MEDS: CLOPIDOGREL BISULFATE 75 MG TAB PO SCH (07:55)
[2022-02-02] MEDS: SERTRALINE HCL 50 MG TABLET PO SCH (07:55)
[2022-02-02] MEDS: AMIODARONE 200 MG TAB PO SCH (07:55)
[2022-02-02] MEDS: APIXABAN 5 MG TABLET PO SCH ×2 (07:55→21:00)
[2022-02-02] MEDS: METOPROLOL TARTRATE 25 MG TAB PO SCH ×2 (07:55→21:00)
[2022-02-02] MEDS: FUROSEMIDE 40 MG TAB PO SCH (07:56)
[2022-02-02] MEDS: LANSOPRAZOLE 30 MG SOLTAB PO SCH (07:56)
[2022-02-02] MEDS: INSULIN ASPART PER UNIT SC SCH ×4 (07:56→20:20)
--- NOTE | 2022-02-02 15:46 | Hospitalist Progress Note ---
Date of Service February 02, 2022 Assessment & Plan (1) Aspiration pneumonia: (2) Respiratory failure, acute and chronic: (3) Asbestosis: (4) Atrial fibrillation: (5) CAD (coronary artery disease): (6) Chronic obstructive pulmonary disease: Plan: This is an 81-year-old male who presents with acute on chronic respiratory failure. He is being managed for the followin. Acute on chronic respiratory failure: history of chronic obstructive pulmonary disease, asbestosis, chronically on oxygen 3 liters, had mild wheezing and rhonchi on exam on admission. Symptoms started after vomiting, possible aspiration pneumonia playing the role. He also has a history of sleep apnea, but since last one year is not using CPAP. Bibasal crackles noted, diminished breath sounds, requiring 5L O2 at bedside. CT scan with possible pulmonary edema, Pulm evaluated, appreciate recs. c/w PO lasix. Monitor BMP daily. Replete electrolytes as appropriate. BMP in 1 wk upon DC. Consider fluid restriciton. s/p 7 day course of antibiotic 1a. Pneumonia 1b. Possible pulmonary edema 1c. small loculated pleural collections unchanged from previous CT in Oct 2020. 2. Diabetes, not on any medication. C/w SSI, follow the blood sugars, A1c 6.3% 3. History of atrial fibrillation, on amiodarone, metoprolol and Eliquis. Currently rate controlled #. Other chronic medical conditions: Embolic CVA/HTN/depression/HLD/CKD stage III/prolonged QT Continue with/resume home medications as and when appropriate. #. DVT prophylaxis: On Eliquis DISPOSITION: PT/OT. Social service to help with discharge planning. Transfer back to [facility] when stable. Will need high capacity O2 concentrator upon DC. Stable Medically. CODE STATUS: Full code Admission and Anticipated Discharge Date Admission Date: January 24, 2022 Subjective Patient seen and examined at bedside as a follow-up of aspiration pneumonia, acute on chronic respiratory failure and likely pulmonary edema. Patient lying in bed, on 5 L nasal cannula oxygen, comfortable, NAD, no new acute events overnight. Pt feels better. Patient reports eating okay and having adequate output via his ostomy bag. Patient denies cough or wheezing. Patient denies any fever/headache/chills/chest pain/palpitations/belly pain/other review of symptoms. Per RN patient is doing good. Physical Exam Physical Exam: GENERAL: Alert and oriented x3. NAD, on 5L NC O2. HEENT: No pallor, no icterus. Pupils equal, round and reactive to light. Oral mucosa moist. NECK: No JVD, no neck masses. HEART: S1 and S2 heard. Regular rate and rhythm. No murmur, no gallop. RESPIRATORY SYSTEM: Normal AP diameter. No accessory muscle use. No wheezing, bibasal crackles. ABDOMEN: Soft, bowel sounds present, nontender, no distention. Ostomy bag with nonbloody collection noted. CENTRAL NERVOUS SYSTEM: No facial droop. Speech is clear. Obeys simple commands. Moves extremities. EXTREMITIES: No edema, no erythema seen. Results & Data Results & Data ([facility]) Vital Signs (Past 12 Hours) Vital Signs Temp Pulse Pulse Resp BP Pulse Ox 02/02/22 15:34 36.6 C 68 20 118/50 L 91 02/02/22 12:45 63 18 98 02/02/22 12:30 37.0 C 66 18 126/65 93 02/02/22 07:19 66 24 129/61 92 02/02/22 07:02 64 16 96 02/02/22 07:00 60 (1) Chronic obstructive pulmonary disease COPD type: unspecified COPD Qualified Code(s): J44.9 - Chronic obstructive pulmonary disease, unspecified
[2022-02-03] MEDS: IPRATROPIUM BROMIDE NEB SOLN 0.02% 2.5 ML VIAL INH SCH ×3 (00:40→13:11)
[2022-02-03] MEDS: LEVALBUTEROL HCL 1.25 MG/3 ML NEB INH SCH ×3 (00:40→13:11)
[2022-02-03] MEDS: AMIODARONE 200 MG TAB PO SCH (08:49)
[2022-02-03] MEDS: APIXABAN 5 MG TABLET PO SCH (08:49)
[2022-02-03] MEDS: CLOPIDOGREL BISULFATE 75 MG TAB PO SCH (08:49)
[2022-02-03] MEDS: FLUTICASONE/VILANTEROL 200/25MCG 14 PUFFS/INHALER INH SCH (08:50)
[2022-02-03] MEDS: LANSOPRAZOLE 30 MG SOLTAB PO SCH (08:51)
[2022-02-03] MEDS: FUROSEMIDE 40 MG TAB PO SCH (08:51)
[2022-02-03] MEDS: INSULIN ASPART PER UNIT SC SCH ×2 (08:52→11:52)
[2022-02-03] MEDS: SERTRALINE HCL 50 MG TABLET PO SCH (08:52)
[2022-02-03] MEDS: METOPROLOL TARTRATE 25 MG TAB PO SCH (08:52)
[2022-02-03] MEDS: UMECLIDINIUM BROMIDE 62.5MCG/BLISTER 7 PUFFS/INHALER INH SCH (08:52)
[2022-02-03] MEDS: ROSUVASTATIN CALCIUM 20 MG TAB PO SCH (08:52)
--- NOTE | 2022-02-03 11:56 | Discharge Summary ---
Date of Service February 03, 2022 Admission HPI Per Admitting Provider CHIEF COMPLAINT: Shortness of breath, hypoxia. HISTORY OF PRESENT ILLNESS: This is an 81-year-old male with past medical history significant for COPD, asbestosis, on home oxygen 3 liters, CAD, history of paroxysmal atrial fibrillation, on Eliquis, history of CVA, hypertension, diabetes - diet controlled, hyperlipidemia, chronic anemia, baseline hemoglobin 9-10, history of past tobacco abuse. The patient is coming from [facility] with shortness of breath. The patient developed some nausea, vomiting this morning and then progressively felt short of breath over there. He is usually on 3 liters, was saturates 70% on 3 liters. Even with 5 liters, saturation was not coming up and EMS was called. He was given Zofran and also he had some temperature spike, also given some Tylenol and was brought into the hospital. Initially, he was placed on a nonrebreather, currently tapered down to facemask. He is able to answer all questions. Daughter is in the room. Feeling short of breath and developed some cough today. [place] chills, but no fever, no chest pain. Currently, nausea is improved. No abdominal pain, no diarrhea. Normal bladder movements. No swelling in the legs. No headache, no blurred visions, no earache, no runny nose, no sore throat. Generally, he is on a regular diet and swallows okay. The patient had 3 COVID shots. He uses an electric wheelchair. He can ambulate upto the electric wheelchair, but he cannot ambulate too far. Currently slightly tachycardic, but is improving. ALLERGIES: DILTIAZEM, TELMISARTAN. PAST MEDICAL HISTORY: As mentioned above. PAST SURGICAL HISTORY: Bowel surgery. FAMILY HISTORY: Significant for esophageal cancer, kidney cancer, COPD. SOCIAL HISTORY: Positive tobacco use. Occasional alcohol. 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 REVIEW OF SYSTEMS: As per HPI. Rest of the review of systems is negative. Admission Exam Per Admitting Provider GENERAL: The patient is on facemask, not in acute distress. VITAL SIGNS: Temperature 37, pulse 107, respiratory rate 24, blood pressure 105/57, oxygen 90% on facemask. HEENT: Pupils equal, round and reactive to light. No pallor, no icterus. Oral mucosa moist. NECK: No JVD. No neck masses. CARDIOVASCULAR: S1 and S2 heard. Regular rate and rhythm. No murmur, no gallop. RESPIRATORY SYSTEM: Normal AP diameter. No accessory muscle use. Mild bibasilar rhonchi and mild expiratory wheezing. ABDOMEN: Soft, bowel sounds present, nontender, no distention. CENTRAL NERVOUS SYSTEM: Cranial nerves II through XII are grossly intact, nonfocal. EXTREMITIES: No edema, no erythema. Principal Diagnosis Acute on chronic respiratory failure Likely pneumonia Likely acute on chronic diastolic heart failure Discharge Exam GENERAL: Alert and oriented x3. NAD, on 4L NC O2. HEENT: No pallor, no icterus. Pupils equal, round and reactive to light. Oral mucosa moist. NECK: No JVD, no neck masses. HEART: S1 and S2 heard. Regular rate and rhythm. No murmur, no gallop. RESPIRATORY SYSTEM: Normal AP diameter. No accessory muscle use. No wheezing, bibasal crackles. ABDOMEN: Soft, bowel sounds present, nontender, no distention. Ostomy bag with nonbloody collection noted. CENTRAL NERVOUS SYSTEM: No facial droop. Speech is clear. Obeys simple commands. Moves extremities. EXTREMITIES: No edema, no erythema seen. Discharge Data Allergies Allergy/AdvReac Type Severity Reaction Status Date / Time diltiazem [From Cardizem] Allergy Intermediate hives Verified 01/27/22 16:19 telmisartan Allergy Unknown Unknown Verified 11/22/21 20:35 Consultations 01/24/22 18:47 ED Decision to Admit Stat 01/27/22 11:21 Consult Pulmonology Routine Ordered Studies 01/27/22 16:15 CT chest diagnostic wo con Routine Hospital Course (1) Aspiration pneumonia: (2) Respiratory failure, acute and chronic: (3) Asbestosis: (4) Atrial fibrillation: (5) CAD (coronary artery disease): (6) Chronic obstructive pulmonary disease: This is an 81-year-old male who presents with acute on chronic respiratory failure. He was managed for the followin. Acute on chronic respiratory failure: history of chronic obstructive pulmonary disease, asbestosis, chronically on oxygen 3 liters, had mild wheezing and rhonchi on exam on admission. Symptoms started after vomiting, possible aspiration pneumonia playing the role. He also has a history of sleep apnea, but since last one year is not using CPAP. Bibasal crackles noted, diminished breath sounds, requiring 4L O2 at bedside. CT scan with possible pulmonary edema, Pulm evaluated, appreciate recs. c/w PO lasix. alternate daily with 40 mg and 20 mg lasix as discussed at the bedside. BMP in 1 wk upon DC. Consider fluid restriciton to 1.8L s/p 7 day course of antibiotic 1a. Pneumonia 1b. Possible pulmonary edema 1c. small loculated pleural collections unchanged from previous CT in Oct 2020. 2. Diabetes, not on any medication. C/w SSI, follow the blood sugars, A1c 6.3% 3. History of atrial fibrillation, on amiodarone, metoprolol and Eliquis. Currently rate controlled #. Other chronic medical conditions: Embolic CVA/HTN/depression/HLD/CKD stage III/prolonged QT Continue with/resume home medications as and when appropriate. #. DVT prophylaxis: On Eliquis DISPOSITION: PT/OT. Social service to help with discharge planning. Transfer back to [facility] when stable. Will need high capacity O2 concentrator upon DC. Stable Medically. CODE STATUS: Full code Patient was discharged back to [facility] with following instruction at the point of discharge: Follow-up with your primary care physician within a week time. For acute on chronic diastolic heart failure follow-up, maintain outpatient follow-up with your doctor in 2 to 3 weeks time. For your acute on chronic diastolic heart failure, you have been started on Lasix. As discussed at the bedside, take 40 mg every other day and 20 mg every other day, alternating with each other. Maintain fluid restriction of 1.8 L/day. You will need to get your blood work BMP done in a week time upon discharge, have the results forwarded to your primary care physician. Take your medications as prescribed. Total Time Total Time Spent Total Time Spent (In Minutes): 35 Discharge Plan Discharge Items Patient Disposition: Personal Detention Reason For Visit: SOB Discharge Diagnosis: Acute on chronic respiratory failure Likely pneumonia Likely acute on chronic diastolic heart failure Activity: Resume your previous activity Non-emergency contact: Primary Care Provider Call non-emergency contact if: you have any medication questions, your symptoms worsen and your temperature is above 101 [facility] - Diet: Heart Healthy Fluids: 1800ml (7 cups) Addtl Attending Provider Instructions: Follow-up with your primary care physician within a week time. For acute on chronic diastolic heart failure follow-up, maintain outpatient follow-up with your doctor in 2 to 3 weeks time. For your acute on chronic diastolic heart failure, you have been started on Lasix. As discussed at the bedside, take 40 mg every other day and 20 mg every other day, alternating with each other. Maintain fluid restriction of 1.8 L/day. You will need to get your blood work BMP done in a week time upon discharge, have the results forwarded to your primary care physician. Take your medications as prescribed. Call 911 and go to the Emergency Room if: * You have tightness or pain in your chest that does not go away with rest or Nitroglycerin * You are very short of breath even with rest Call your doctor if any of the following symptoms or problems start or get worse: * Shortness of breath or difficulty breathing * Wake up at night short of breath * Chest pain * Cough * Swelling of your hands, fee, or legs * More fatigued or tired with your normal activity * Palpitations - sudden fast heart beats WEIGHT * Weigh yourself every morning after using the bathroom. * Use the same scale. * Wear the same amount of clothing. * Write your weight down on your chart. * Call your doctor if you gain more than 2-3 pounds in 1-2 days. MEDICATIONS * Use this discharge instruction sheet for instructions. * Take your medications at the time your doctor ordered. * Do not skip a dose of your medicines. * If you miss a dose of medicine, take as soon as possible, but DO NOT DOUBLE A DOSE. * Read your medicine information when you get home. * Know all of the side effects of your medicine. * Call your doctor's office if you have any side effects. * Be sure all of your doctors know what medicine and herbs you take (including cold, flu, and herbal medicine). * Pain Medicine: If you do not get relief from your pain, please call your doctor for help. Take the following with you to your follow-up doctor appointments: * Weight Chart * Medication List * List of questions Do not drink excessive alcohol, beer or wine. Pending Studies at Discharge: No Stand-Alone Forms: [employer] Vaccines, Smoking Cessation Skilled Items Patient informed of condition?: Yes DNR: No Discharge Level of Care: Other Communicable Disease: No Discharge Prognosis: Stable Lines: None Urinary Catheter: No Medications and DC Order Prescriptions: New furosemide 40 mg Tablet 40 mg PO Q OTHER DAY Qty: 15 RF: 0 furosemide 20 mg tablet 20 mg PO Q OTHER DAY Qty: 15 RF: 0 Continued Dulera 200-5 mcg/actuation HFA aerosol inhaler 2 puff inhalation BID Qty: 1 RF: 3 clopidogrel 75 mg tablet 75 mg PO DAILY RF: 0 albuterol sulfate [Ventolin HFA] 90 mcg/actuation HFA aerosol inhaler 2 puff INHALATION Q6 PRN (Reason: Shortness Of Breath Or Wheezing) RF: 0 diphenhydramine HCl [Banophen] 50 mg Capsule 50 mg PO Q8 PRN (Reason: allergies) RF: 0 ondansetron 4 mg tablet,disintegrating 4 mg PO Q4 PRN (Reason: Nausea And Vomiting) RF: 0 Barrier Cream 1 applic topical QID RF: 0 rosuvastatin [Crestor] 20 mg Tablet 20 mg PO QAM Qty: 30 RF: 0 amiodarone 200 mg Tablet 200 mg PO QAM Qty: 5 RF: 0 lansoprazole [Prevacid SoluTab] 30 mg Tablet,Disintegrat, Delay Rel 30 mg PO QAM Qty: 5 RF: 0 metoprolol tartrate 25 mg Tablet 25 mg PO BID Qty: 10 RF: 0 Spiriva with HandiHaler 18 mcg capsule, w/inhalation device See Rx Instructions .ROUTE .COMPLEX Qty: 5 RF: 3 tramadol 50 mg tablet 50 mg PO Q6 PRN (Reason: Pain) RF: 0 hydrocortisone 1 % Cream 1 applic TOPICAL BID RF: 0 Eliquis 5 mg tablet 5 mg PO BID RF: 0 sertraline 50 mg tablet 50 mg PO DAILY RF: 0 Discharge Orders: Discharge Order (Routine); Ordered 02/03/22 Ordered By: Josefa Garcia Admission Data Admit Date/Time: 01/24/22 20:34 Attending Provider: Josefa Garcia Admit Provider: Lambert Lucas Primary Care Provider: Louis Dickinson,[email or web address] [facility] Other Providers: Lambert Lucas ; Mack Hutchinson
== END 2022-02-03 14:19 | disposition home or self-care (01) | DRG 177 ==
LOC: ED 16:00 → SUATTDRO 20:34 → 2E 20:34